=== PATIENT | male | born 1965 | race Hispanic/Latino ===

== ENCOUNTER 2017-04-16 17:03 | Observation (INO) | payer OTHER ==
[2017-04-16 17:04] VITALS: BMI 21.9
[2017-04-16 17:24] VITALS: BP 112/58; PULSE 89; RESP 18; TEMP 99; O2SAT 96
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
== END 2017-04-16 18:30 | disposition home or self-care (01) ==
LOC: C.ER 17:03 → C.9OBSV 17:35
PROVIDERS: ADMIT Student in an Organized Health Care Education/Training Program; ATTEND Student in an Organized Health Care Education/Training Program
DX: F10.120 Alcohol abuse with intoxication, uncomplicated (principal); Z87.891 Personal history of nicotine dependence; J44.9 Chronic obstructive pulmonary disease, unspecified; Y90.6 Blood alcohol level of 120-199 mg/100 ml
CPT/HCPCS: 80320; 82948; 99285; G0378

== ENCOUNTER 2017-04-26 15:41 | Emergency (ER) | payer OTHER ==
[2017-04-26 15:42] VITALS: BMI 21.9
[2017-04-26 16:19] VITALS: BP 137/69; PULSE 98; RESP 18; TEMP 98.1; O2SAT 100
[2017-04-26] MEDS ORDERED: Bacitracin 500 Units/gm Oint Foilpak UD TOP STA (16:43)
[2017-04-26] MEDS ORDERED: Bacitracin 500 Units/gm Oint Foilpak UD ONE (16:45)
--- NOTE | 2017-04-26 16:49 | C.PDOC ---
Time Seen by Provider: 04/26/17 16:35 Chief Complaint (Nursing): Suture/Staple Removal Past Medical History Vital Signs: Last Vital Signs Temp 98.1 F 04/26/17 16:17 Pulse 98 H 04/26/17 16:17 Resp 18 04/26/17 16:17 BP 137/69 04/26/17 16:17 Pulse Ox 100 04/26/17 16:17 - Medical History PMH: COPD, Hiatal Hernia, Seizures Denies: HIV, HTN, Chronic Kidney Disease, Sexually Transmitted Disease - [facility] Procedures EXCISION OF SMALL INTESTINE, ENDO, DIAGN (08/09/16) TETANUS TOXOID ADMINIST (11/20/14) Family History: States: Unknown Family Hx - Social History Hx Tobacco Use: Yes Hx Alcohol Use: Yes Hx Substance Use: No - Immunization History Hx Tetanus Toxoid Vaccination: No Hx Influenza Vaccination: No Hx Pneumococcal Vaccination: No ED Course And Treatment O2 Sat by Pulse Oximetry: 100 Disposition Counseled Patient/Family Regarding: Need For Followup - Disposition Disposition: HOME/ ROUTINE Disposition Time: 16:48 Condition: GUARDED Additional Instructions: Follow up with the surgeon who is caring for you. Instructions: Acute Wound Care (ED) Forms: General Discharge Instructions - POA Present On Arrival: None - Clinical Impression Clinical Impression: Pain at surgical site
== END 2017-04-26 17:12 | disposition home or self-care (01) ==
LOC: C.ER 15:41
DX: G89.18 Other acute postprocedural pain (principal)

== ENCOUNTER 2017-08-08 20:24 | Emergency (ER) | payer OTHER ==
[2017-08-08 20:24] VITALS: BMI 21.9
[2017-08-08 20:44] VITALS: RESP 18; O2SAT 100
[2017-08-08 22:19] VITALS: BP 130/69; PULSE 80; TEMP 98
--- NOTE | 2017-08-08 22:55 | C.PDOC ---
History Of Present Illness 51 y/o male c/o mechanically falling sometime today. Patient does not know when he fell. Patient also c/o headache and chronic left shoulder pain. Denies LOC or any other complaints. Patient admits to drinking today. Patient went to [facility] and walked out. No weakness or numbness. Time Seen by Provider: 08/08/17 22:00 Chief Complaint (Nursing): Upper Extremity Problem/Injury History Per: Patient History/Exam Limitations: no limitations Onset/Duration Of Symptoms: Hrs Current Symptoms Are (Timing): Still Present Quality: "Pain" Severity: Mild Recent travel outside of the [place]: No Additional History Per: Patient Past Medical History Reviewed: Historical Data, Nursing Documentation, Vital Signs Vital Signs: Last Vital Signs Temp 98.0 F 08/08/17 22:00 Pulse 80 08/08/17 22:00 Resp 18 08/08/17 22:00 BP 130/69 08/08/17 22:00 Pulse Ox 100 08/08/17 22:59 - Medical History PMH: COPD, Hiatal Hernia, Seizures Denies: HIV, HTN, Chronic Kidney Disease, Sexually Transmitted Disease - [facility] Procedures EXCISION OF SMALL INTESTINE, ENDO, DIAGN (08/09/16) TETANUS TOXOID ADMINIST (11/20/14) Family History: States: Unknown Family Hx - Social History Hx Tobacco Use: Yes Hx Alcohol Use: Yes Hx Substance Use: No - Immunization History Hx Tetanus Toxoid Vaccination: No Hx Influenza Vaccination: No Hx Pneumococcal Vaccination: No Review Of Systems Except As Marked, All Systems Reviewed And Found Negative. Constitutional: Positive for: Other (ETOH intoxicated ) Musculoskeletal: Positive for: Shoulder Pain (Left) Neurological: Positive for: Headache. Negative for: Weakness, Numbness, Other ( LOC) Physical Exam - Physical Exam Appears: Non-toxic, No Acute Distress, Other ((+) AOB) Skin: Warm, Dry Head: Atraumatic, Normacephalic Eye(s): bilateral: Normal Inspection, PERRL, EOMI Ear(s): Bilateral: Normal Oral Mucosa: Moist Throat: Normal, No Erythema Neck: Supple Chest: Symmetrical Cardiovascular: Rhythm Regular, No Murmur Respiratory: Normal Breath Sounds, No Rales, No Rhonchi, No Wheezing Gastrointestinal/Abdominal: Soft, No Tenderness Extremity: Capillary Refill (<2secs), No Deformity, Other (Surgical scar left upper arm) Neurological/Psych: Oriented x3, Normal Motor, Normal Sensation Gait: Steady ED Course And Treatment O2 Sat by Pulse Oximetry: 100 (RA) Pulse Ox Interpretation: Normal Medical Decision Making Medical Decision Making: Plans: * Motrin * XRAY left shoulder XRAY done with orthopedic hardware. No acute fractures or dislocations from fall. Patient refused CT Disposition - Disposition Referrals: [facility] [Outside] [facility] [Outside] Disposition: HOME/ ROUTINE Disposition Time: 20:30 Condition: GOOD Additional Instructions: Thank you for letting us take care of you today. The emergency medical care you received today was directed at your acute symptoms. If you were prescribed any medication, please fill it and take as directed. It may take several days for your symptoms to resolve. Return to the Emergency Department if your symptoms worsen, do not improve, or if you have any other problems. Please contact your doctor or call one of the physicians/clinics you have been referred to that are listed on the Patient Visit Information form that is included in your discharge packet. Bring any paperwork you were given at discharge with you along with any medications you are taking to your follow up visit. Our treatment cannot replace ongoing medical care by a primary care provider (PCP) outside of the emergency department. Thank you for allowing the [facility] team to be part of your care today. Follow up in the clinic this week for outpatient care. Instructions: Shoulder Pain (ED) - Clinical Impression Clinical Impression: Shoulder pain, Alcohol dependence - Scribe Statement The provider has reviewed the documentation as recorded by the Scribdarvin saeed All medical record entries made by the Simaibdarvin were at my direction and personally dictated by me. I have reviewed the chart and agree that the record accurately reflects my personal performance of the history, physical exam, medical decision making, and the department course for this patient. I have also personally directed, reviewed, and agree with the discharge instructions and disposition.
--- NOTE | 2017-08-09 09:15 | RAD ---
Left shoulder three views History: Fracture. Comparison: None available. Findings: Side plate with screw fixation through a fracture deformity of the left proximal humerus. One of the superior screws extends through the superior articular surface of the humeral head approximating the undersurface of the left acromion. Cortical irregularity seen at the fracture site with persistent mild distraction medially. Callus formation with heterotopic bone seen along the medial cortex of the proximal humerus. Humeral head appears located. Acromioclavicular joint space appears preserved. Impression: Side plate with screw fixation through a fracture deformity of the left proximal humerus. One of the superior screws extends through the superior articular surface of the humeral head approximating the undersurface of the left acromion. Cortical irregularity seen at the fracture site with persistent mild distraction medially. Callus formation with heterotopic bone seen along the medial cortex of the proximal humerus. If pain persists, consider further evaluation with CT scan to better evaluate for possible acute injury.
== END 2017-08-08 22:15 | disposition home or self-care (01) ==
LOC: C.ER 20:24
DX: M25.512 Pain in left shoulder (principal); F10.20 Alcohol dependence, uncomplicated; Y90.9 Presence of alcohol in blood, level not specified

== ENCOUNTER 2018-05-25 15:40 | Emergency (ER) | payer OTHER ==
[2018-05-25 15:40] VITALS: BMI 21.9
[2018-05-25 15:47] VITALS: TEMP 98.4
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
[2018-05-25 17:06] VITALS: BP 135/73; PULSE 78; RESP 18; O2SAT 100
== END 2018-05-25 17:06 | disposition left against medical advice (07) ==
LOC: C.ER 15:40
DX: M25.552 Pain in left hip (principal)

== ENCOUNTER 2018-06-10 23:16 | Inpatient (IN) | payer OTHER ==
[2018-06-10 23:16] VITALS: BMI 21.9
[2018-06-10] MEDS ORDERED: Sodium Chloride 0.9% 1,000 ML IV STA (23:27)
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
[2018-06-10 23:42] LABS: BASO # 0.1 K/uL (0.0-0.2); BASO % 0.3 % (0.0-2.0); EOS # 0.1 K/uL (0.0-0.7); EOS % 0.5 % (0.0-4.0); HEMOGLOBIN 7.7 g/dL (12.0-18.0); LYMPH % 18.5 % (20.0-40.0); MEAN CORPUSCULAR HEMOGLOBIN 32.5 pg (27.0-31.0); MEAN CORPUSCULAR HGB CONC 33.8 g/dL (33.0-37.0); MEAN PLATELET VOLUME 8.3 fL (7.2-11.7); MONO # 1.8 K/uL (0.0-0.8); MONO % 10.9 % (0.0-10.0); NEUT # 11.5 K/uL (1.8-7.0); NEUT % 69.8 % (50.0-75.0); NRBC % 0.1 % (0.0-2.0); RBC 2.36 Mil/uL (4.40-5.90); WHITE BLOOD COUNT 16.5 K/uL (4.8-10.8)
[2018-06-10 23:43] LABS: MEAN CELL VOLUME 96.1 fL (80.0-94.0)
[2018-06-10 23:48] LABS: INR 1.4; PROTHROMBIN TIME 15.5 SECONDS (9.7-12.2)
[2018-06-11] LABS: ARTERIAL BLOOD GAS HCO3 15.6 mmol/L (21-28); ARTERIAL BLOOD GAS O2 SAT 99.7 % (95-98); ARTERIAL BLOOD GAS PCO2 28 mm/Hg (35-45); ARTERIAL BLOOD GAS PH 7.28 (7.35-7.45); ARTERIAL BLOOD GAS PO2 458 mm/Hg (80-100); ARTERIAL BLOOD GAS TCO2 14.1 mmol/L (22-28)
[2018-06-11] MEDS ORDERED: EPINEPHrine 1 mg/ml (1:1000) Inj IV ONE (00:09)
[2018-06-11 00:10] LABS: TROPONIN I 0.038 ng/mL (0.00-0.120)
[2018-06-11 00:18] LABS: ALBUMIN 2.4 g/dL (3.5-5.0); ALT/SGPT 31 U/L (21-72); AST/SGOT 45 U/L (17-59); BLOOD UREA NITROGEN 9 mg/dL (9-20); CALCIUM 7.7 mg/dl (8.6-10.4); GFR NON-AFRICAN AMERICAN > 60
[2018-06-11] MEDS ORDERED: Sodium Chloride 3% 500 ML IV ONE ×2 (00:23→00:52)
--- NOTE | 2018-06-11 00:34 | CP.PCM.HP ---
<Tayo Shankar - Last Filed: 06/11/18 08:21> History of Present Illness - History of Present Illness History of Present Illness: Resident History & Physical for Hospitalist Service Patient is a 52 year old male with past medical history seizures, COPD, hiatal hernia, alcohol abuse presenting with chief complaint of cardiac arrest and respiratory failure. History was obtained from patient's sister and prior records as patient was sedated and intubated upon arrival. Patient was complaining of shortness of breath and was found to have low blood pressure around 9PM. However he refused to go to the hospital for evaluation. He was then found to have seizures after which the ambulance was called. ACLS protocol was initiated, patient received 1 amp epi with ROSC. Patient was intubated and arrived at ED. Patient has long history of alcohol abuse and seizures likely secondary to alcohol withdrawal. Patient is reportedly non compliant with his seizure medications. Past medical history: seizures, COPD, hiatal hernia, alcohol abuse Past surgical: excision of small intestine Social: two 24 oz. beers daily for 30 years, 10 cigarettes a day for 30 years, no recreational drug use Allergies: NKDA PMD: Dr. Rodríguez Present on Admission - Present on Admission Any Indicators Present on Admission: Yes Urinary Catheter: Yes Review of Systems - Review of Systems Systems not reviewed;Unavailable: Intubated Past Patient History - Infectious Disease Hx of Infectious Diseases: None - Past Medical History & Family History Past Medical History?: Yes - Past Social History Smoking Status: Light Smoker < 10 Cigarettes Daily - CARDIAC Hx Hypertension: No - PULMONARY Hx Chronic Obstructive Pulmonary Disease (COPD): Yes - NEUROLOGICAL Hx Seizures: Yes - HEENT Hx HEENT Problems: Yes Other/Comment: hearing loss - RENAL Hx Chronic Kidney Disease: No - ENDOCRINE/METABOLIC Hx Endocrine Disorders: No - HEMATOLOGICAL/ONCOLOGICAL Hx Human Immunodeficiency Virus (HIV): No - INTEGUMENTARY Hx Dermatological Problems: No - MUSCULOSKELETAL/RHEUMATOLOGICAL Hx Back Pain: Yes Hx Falls: Yes Other/Comment: scoliosis - GASTROINTESTINAL HX Swallowing Problems: Yes Hx Ulcer: Yes Other/Comment: removal of portion of intestines - GENITOURINARY/GYNECOLOGICAL Hx Sexually Transmitted Disorders: No - PSYCHIATRIC Hx Substance Use: No - SURGICAL HISTORY Hx Surgeries: Yes Hx Herniorrhaphy: Yes Other/Comment: Endoscopy 08/11/16. - ANESTHESIA Hx Anesthesia: Yes Hx Anesthesia Reactions: No Meds Allergies/Adverse Reactions: Allergies Allergy/AdvReac Type Severity Reaction Status Date / Time No Known Allergies Allergy Verified 06/10/18 23:18 Physical Exam - Head Exam Head Exam: ATRAUMATIC, NORMOCEPHALIC - Eye Exam Pupil Exam: Fixed - ENT Exam Additional comments: Intubated - Respiratory Exam Respiratory Exam: Clear to Auscultation Bilateral, NORMAL BREATHING PATTERN - Cardiovascular Exam Cardiovascular Exam: REGULAR RHYTHM, +S1, +S2 - GI/Abdominal Exam GI & Abdominal Exam: Hypoactive Bowel Sounds, Soft. absent: Distended, Firm, Mass - Extremities Exam Extremities exam: Positive for: normal inspection - Neurological Exam Additional comments: Unable to be assessed as patient is under sedation - Skin Skin Exam: Dry, Intact Results - Vital Signs Recent Vital Signs: Last Vital Signs Temp Pulse 148 H 06/10/18 23:18 Resp BP Pulse Ox 100 06/11/18 00:31 - Labs Result Diagrams: 06/11/18 03:20 06/11/18 03:20 Labs: Laboratory Results - last 24 hr 06/10/18 06/10/18 06/10/18 23:37 23:37 23:37 WBC 16.5 H D RBC 2.36 L Hgb 7.7 L Hct 22.7 L MCV 96.1 H D MCH 32.5 H MCHC 33.8 RDW 15.0 H Plt Count 180 D MPV 8.3 Neut % (Auto) 69.8 Lymph % (Auto) 18.5 L [place] % (Auto) 10.9 H Eos % (Auto) 0.5 Baso % (Auto) 0.3 Neut # (Auto) 11.5 H Lymph # (Auto) 3.0 [place] # (Auto) 1.8 H Eos # (Auto) 0.1 Baso # (Auto) 0.1 PT 15.5 H INR 1.4 APTT 40 H Puncture Site pCO2 pO2 HCO3 ABG pH ABG Total CO2 ABG O2 Saturation ABG Base Excess Bob Test ABG Potassium A-a O2 Difference Respiratory Index Glucose Lactate Vent Mode Mechanical Rate FiO2 Tidal Volume PEEP Crit Value Called To Crit Value Called By Crit Value Read Back Blood Gas Notified Time Sodium 109 L* Potassium 3.3 L Chloride 71 L D Carbon Dioxide 13 L Anion Gap 28 H BUN 9 Creatinine 1.0 Est GFR ( Amer) > 60 Est GFR (Non-Af Amer) > 60 Random Glucose 176 H Calcium 7.7 L Total Bilirubin 0.7 AST 45 ALT 31 Alkaline Phosphatase 75 Troponin I NT-Pro-B Natriuret Pep Total Protein 4.8 L Albumin 2.4 L D Globulin 2.4 Albumin/Globulin Ratio 1.0 Arterial Blood Potassium Alcohol, Quantitative 06/10/18 06/10/18 06/11/18 23:37 23:55 00:07 WBC RBC Hgb Hct MCV MCH MCHC RDW Plt Count MPV Neut % (Auto) Lymph % (Auto) [place] % (Auto) Eos % (Auto) Baso % (Auto) Neut # (Auto) Lymph # (Auto) [place] # (Auto) Eos # (Auto) Baso # (Auto) PT INR APTT Puncture Site Rfem pCO2 28 L pO2 458 H HCO3 15.6 L ABG pH 7.28 L ABG Total CO2 14.1 L ABG O2 Saturation 99.7 H ABG Base Excess -12.0 L Bob Test Na ABG Potassium 3.2 L A-a O2 Difference 220.0 Respiratory Index 0.5 Glucose 164 H Lactate 7.7 H* Vent Mode Prvc Mechanical Rate 20 FiO2 100.0 Tidal Volume 500 PEEP 5 Crit Value Called To Dr. meehan Crit Value Called By Alejandra dietician Crit Value Read Back Y Blood Gas Notified Time 0 Sodium 106.0 L* Potassium Chloride 77.0 L Carbon Dioxide Anion Gap BUN Creatinine Est GFR ( Amer) Est GFR (Non-Af Amer) Random Glucose Calcium Total Bilirubin AST ALT Alkaline Phosphatase Troponin I 0.0380 NT-Pro-B Natriuret Pep 3480 H Total Protein Albumin Globulin Albumin/Globulin Ratio Arterial Blood Potassium 3.2 L Alcohol, Quantitative < 10 Assessment & Plan - Assessment and Plan (Free Text) Plan: Cardiac arrest - Abd/pelvis CT shows distended bowel suggesting an ileus - s/o central line placement - Levophed drip Seizures - Likely secondary to alcohol withdrawal - Head CT shows no acute intracranial abnormality. Chronic microvascular ischemic changes. Sinus mucosal disease. - Keppra 500 mg IVPB Q12H Hyponatremia - Sodium 109 - Correct sodium with a goal of 8-10 meq/day - Followup urine sodium, urine osmolality - Continue to monitor and replete Hypokalemia - Potassium 3.3 - Continue to monitor and replete Anemia - Hgb 7.7 - 1 unit PRBCs given - Continue to monitor and transfuse as needed - FOBT positive - GI consulted. Appreciate recs. PPX - Protonix drip - SCDs Tayo Shankar PGY-1 - Date & Time Date: 06/11/18 Time: 13:30 <Supa Jimenez - Last Filed: 06/12/18 06:33> Results - Vital Signs Recent Vital Signs: Last Vital Signs Temp 98.7 F 06/12/18 04:00 Pulse 99 H 06/12/18 05:00 Resp 23 06/12/18 05:00 BP 104/63 06/12/18 05:03 Pulse Ox 99 06/12/18 05:00 - Labs Result Diagrams: 06/11/18 12:41 06/11/18 17:20 Labs: Laboratory Results - last 24 hr 06/11/18 06/11/18 06/11/18 00:45 08:27 08:27 WBC RBC Hgb Hct MCV MCH MCHC RDW Plt Count MPV Neut % (Auto) Lymph % (Auto) [place] % (Auto) Eos % (Auto) Baso % (Auto) Neut # (Auto) Lymph # (Auto) [place] # (Auto) Eos # (Auto) Baso # (Auto) Neutrophils % (Manual) Band Neutrophils % Lymphocytes % (Manual) Monocytes % (Manual) Nucleated RBC % Platelet Estimate Polychromasia Hypochromasia (manual) Poikilocytosis (manual Basophilic Stippling Anisocytosis (manual) Ovalocytes Tra Cells PT INR Puncture Site pCO2 pO2 HCO3 ABG pH ABG Total CO2 ABG O2 Saturation ABG Base Excess ABG Hemoglobin ABG Carboxyhemoglobin POC ABG HHb (Measured) ABG Methemoglobin Bob Test A-a O2 Difference Respiratory Index Hgb O2 Saturation Vent Mode Mechanical Rate FiO2 Tidal Volume PEEP Sodium Potassium Chloride Carbon Dioxide Anion Gap BUN Creatinine Est GFR ( Amer) Est GFR (Non-Af Amer) Random Glucose Calcium Phosphorus Magnesium TSH 3rd Generation 2.92 Cortisol AM Sample 52.9 H Urine Osmolality Ur Random Creatinine Ur Random Sodium Blood Type A POSITIVE Antibody Screen Negative 06/11/18 06/11/18 06/11/18 08:27 12:41 12:41 WBC 10.9 H RBC 3.26 L Hgb 10.4 L D Hct 29.4 L MCV 90.3 D MCH 31.9 H MCHC 35.3 RDW 16.6 H Plt Count 110 L D MPV 8.0 Neut % (Auto) 86.1 H Lymph % (Auto) 4.8 L [place] % (Auto) 8.8 Eos % (Auto) 0.0 Baso % (Auto) 0.3 Neut # (Auto) 9.4 H Lymph # (Auto) 0.5 L [place] # (Auto) 1.0 H Eos # (Auto) 0.0 Baso # (Auto) 0.0 Neutrophils % (Manual) 79 H Band Neutrophils % 3 H Lymphocytes % (Manual) 8 L Monocytes % (Manual) 10 Nucleated RBC % 1 H Platelet Estimate Slightly decreased L Polychromasia Slight Hypochromasia (manual) Slight Poikilocytosis (manual Slight Basophilic Stippling Slight Anisocytosis (manual) Slight Ovalocytes Slight [place] Cells Slight PT INR Puncture Site pCO2 pO2 HCO3 ABG pH ABG Total CO2 ABG O2 Saturation ABG Base Excess ABG Hemoglobin ABG Carboxyhemoglobin POC ABG HHb (Measured) ABG Methemoglobin Bob Test A-a O2 Difference Respiratory Index Hgb O2 Saturation Vent Mode Mechanical Rate FiO2 Tidal Volume PEEP Sodium 118 L* Potassium 4.0 Chloride 90 L Carbon Dioxide 18 L Anion Gap 14 BUN 18 Creatinine 0.7 L Est GFR ( Amer) > 60 Est GFR (Non-Af Amer) > 60 Random Glucose 107 Calcium 7.4 L Phosphorus 2.2 L Magnesium 1.6 TSH 3rd Generation Cortisol AM Sample Urine Osmolality 199 L Ur Random Creatinine 12.4 Ur Random Sodium 39 Blood Type Antibody Screen 06/11/18 06/11/18 06/11/18 17:20 17:20 20:36 WBC RBC Hgb Hct MCV MCH MCHC RDW Plt Count MPV Neut % (Auto) Lymph % (Auto) [place] % (Auto) Eos % (Auto) Baso % (Auto) Neut # (Auto) Lymph # (Auto) [place] # (Auto) Eos # (Auto) Baso # (Auto) Neutrophils % (Manual) Band Neutrophils % Lymphocytes % (Manual) Monocytes % (Manual) Nucleated RBC % Platelet Estimate Polychromasia Hypochromasia (manual) Poikilocytosis (manual Basophilic Stippling Anisocytosis (manual) Ovalocytes [place] Cells PT 15.0 H INR 1.4 Puncture Site pCO2 pO2 HCO3 ABG pH ABG Total CO2 ABG O2 Saturation ABG Base Excess ABG Hemoglobin ABG Carboxyhemoglobin POC ABG HHb (Measured) ABG Methemoglobin Bob Test A-a O2 Difference Respiratory Index Hgb O2 Saturation Vent Mode Mechanical Rate FiO2 Tidal Volume PEEP Sodium 119 L* Potassium 3.3 L Chloride 93 L Carbon Dioxide 19 L Anion Gap 11 BUN 22 H Creatinine 0.8 Est GFR ( Amer) > 60 Est GFR (Non-Af Amer) > 60 Random Glucose 97 Calcium 7.1 L Phosphorus Magnesium TSH 3rd Generation Cortisol AM Sample Urine Osmolality 359 Ur Random Creatinine Ur Random Sodium 14 Blood Type Antibody Screen 06/12/18 04:51 WBC RBC Hgb Hct MCV MCH MCHC RDW Plt Count MPV Neut % (Auto) Lymph % (Auto) [place] % (Auto) Eos % (Auto) Baso % (Auto) Neut # (Auto) Lymph # (Auto) [place] # (Auto) Eos # (Auto) Baso # (Auto) Neutrophils % (Manual) Band Neutrophils % Lymphocytes % (Manual) Monocytes % (Manual) Nucleated RBC % Platelet Estimate Polychromasia Hypochromasia (manual) Poikilocytosis (manual Basophilic Stippling Anisocytosis (manual) Ovalocytes Tra Cells PT INR Puncture Site R rad pCO2 24 L pO2 81 HCO3 21.3 ABG pH 7.48 H ABG Total CO2 18.6 L ABG O2 Saturation 97.8 ABG Base Excess -4.6 L ABG Hemoglobin 8.7 L ABG Carboxyhemoglobin 1.3 POC ABG HHb (Measured) 2.1 ABG Methemoglobin 1.2 Bob Test Pos A-a O2 Difference 246.0 Respiratory Index 3.0 Hgb O2 Saturation 95.3 Vent Mode Prvc Mechanical Rate 20 FiO2 50.0 Tidal Volume 450 PEEP 5 Sodium Potassium Chloride Carbon Dioxide Anion Gap BUN Creatinine Est GFR ( Amer) Est GFR (Non-Af Amer) Random Glucose Calcium Phosphorus Magnesium TSH 3rd Generation Cortisol AM Sample Urine Osmolality Ur Random Creatinine Ur Random Sodium Blood Type Antibody Screen Assessment & Plan - Date & Time Date: 06/11/18 (I have seen and examined the patient. I agree with the findings and plan of care as documented by Dr. Shankar. Patient with cardiac arrest, GI bleed, and hyponatremia. On vent. Admit to ICU for further management and close monitoring. ) Time: 06:32 Attending/Attestation - Attestation I have personally seen and examined this patient.: Yes I have fully participated in the care of the patient.: Yes I have reviewed all pertinent clinical information: Yes
[2018-06-11] MEDS ORDERED: Sodium Chloride 3% 500 ML ONE (00:35)
[2018-06-11 00:49] LABS: SQUAMOUS EPITHIAL 3 /hpf (0-5); URINE BACTERIA RARE (<OCC); URINE BILIRUBIN NEGATIVE (NEGATIVE); URINE CLARITY Hazy (Clear); URINE COLOR Yellow (YELLOW); URINE GLUCOSE (UA) 1+ mg/dL (Normal); URINE LEUKOCYTE ESTERASE 1+ Leu/uL (Negative); URINE PROTEIN 2+ mg/dL (NEGATIVE); URINE UROBILINOGEN NORMAL mg/dL (0.2-1.0)
[2018-06-11 00:50] LABS: URINE BLOOD NEGATIVE (NEGATIVE)
[2018-06-11] MEDS ORDERED: Sodium Chloride 0.9% 1,000 ML IV ONE ×3 (01:42→01:51)
[2018-06-11] MEDS ORDERED: Vancomycin 1 gm/NS 200 ml 1 GM/200 ML BAG IVPB STA (01:51)
[2018-06-11] MEDS: Piperacill/Tazo 3.375gm in Dex 3.375 GM/50 ML BAG IVPB SCH ×4 (02:48→19:55)
[2018-06-11] MEDS ORDERED: Pantoprazole 80 MG in Sodium Chloride 0.9% 100 ML IVP SCH (03:15)
[2018-06-11 03:27] LABS: BASO % 0.1 % (0.0-2.0); EOS % 0.1 % (0.0-4.0); HEMOGLOBIN 7.4 g/dL (12.0-18.0); LYMPH # 0.5 K/uL (1.0-4.3); LYMPH % 3.5 % (20.0-40.0); MEAN CELL VOLUME 92.3 fL (80.0-94.0); MEAN CORPUSCULAR HEMOGLOBIN 32.5 pg (27.0-31.0); MEAN CORPUSCULAR HGB CONC 35.3 g/dL (33.0-37.0); MEAN PLATELET VOLUME 7.5 fL (7.2-11.7); MONO # 1.4 K/uL (0.0-0.8); MONO % 10.7 % (0.0-10.0); NEUT # 11.3 K/uL (1.8-7.0); NEUT % 85.6 % (50.0-75.0); PLATELET COUNT 141 K/uL (130-400); RBC 2.28 Mil/uL (4.40-5.90); RED CELL DISTRIBUTION WIDTH 15.3 % (11.5-14.5); WHITE BLOOD COUNT 13.2 K/uL (4.8-10.8)
[2018-06-11 03:57] LABS: ALB/GLOB RATIO 1.1 (1.0-2.1); ALBUMIN 2.5 g/dL (3.5-5.0); ALT/SGPT 56 U/L (21-72); AST/SGOT 72 U/L (17-59); BLOOD UREA NITROGEN 12 mg/dL (9-20); CALCIUM 6.9 mg/dl (8.6-10.4); GFR NON-AFRICAN AMERICAN > 60
[2018-06-11] MEDS: Magnesium Sulfate 1 gm in D5W 1 GM/100 ML BAG IVPB SCH ×2 (04:14→04:55)
[2018-06-11 04:26] LABS: BANDS 2 % (0-2); LYMPHOCYTE 3 % (20-40); MONOCYTE 9 % (0-10); NEUTROPHIL 86 % (50-75); PLATELET ESTIMATE NORMAL (NORMAL); TOTAL CELLS COUNTED 100
[2018-06-11 05:32] LABS: ARTERIAL BLOOD GAS HCO3 20.8 mmol/L (21-28); ARTERIAL BLOOD GAS O2 SAT 100.3 % (95-98); ARTERIAL BLOOD GAS PCO2 26 mm/Hg (35-45); ARTERIAL BLOOD GAS PH 7.43 (7.35-7.45); ARTERIAL BLOOD GAS PO2 231 mm/Hg (80-100); ARTERIAL BLOOD GAS TCO2 18.1 mmol/L (22-28)
--- NOTE | 2018-06-11 06:49 | CT ---
Date of service: 06/11/2018 PROCEDURE: CT HEAD WITHOUT CONTRAST. HISTORY: post cardiac arrest COMPARISON: None available. TECHNIQUE: Axial computed tomography images were obtained through the head/brain without intravenous contrast. Radiation dose: Total exam DLP = 928 mGy-cm. This CT exam was performed using one or more of the following dose reduction techniques: Automated exposure control, adjustment of the mA and/or kV according to patient size, and/or use of iterative reconstruction technique. FINDINGS: HEMORRHAGE: No intracranial hemorrhage. BRAIN: Scattered focal lucencies in the subcortical and periventricular white matter suggestive for chronic microvascular ischemic change. VENTRICLES: Unremarkable. No hydrocephalus. CALVARIUM: Mild bowing deformity of the right zygomatic arch. Clinical correlation. PARANASAL SINUSES: Fluid in the sphenoid sinus. MASTOID AIR CELLS: Unremarkable as visualized. No inflammatory changes. OTHER FINDINGS: Fluid in the nasopharynx. IMPRESSION: No acute intracranial abnormality. Chronic microvascular ischemic changes. Sinus mucosal disease as above. If symptoms persists, consider correlation with MRI. These findings were preliminarily reported at 3:25 a.m. on 06/11/[address] Kamran Causey from [facility].
--- NOTE | 2018-06-11 07:20 | CP.PCM.CON ---
History of Present Illness - History of Present Illness History of Present Illness: 52 M with h/o alcohol abuse, seizure disorder, h/o peptic ulcer disease s/p partial gastrectomy, h/o left arm and left hip fracture s/p plate and prema respectively patient was earlier in the day feeling sick EMS was called but patient refused to come. Later in the night patient had seizure and collapsed. EMS reached home around 10:30 pm last night, found patient in PEA, intubated in the field. In ER patietn was again PEA coded twice first 6 mins then about 2 min. The he was stated on levophed and maintained ROSC. Labs showed sodium 109, hemoglobin 7.7gm. A central line done in ER showed very collapsable IJ and SVC, suggesting hypovolemia. Also patient was given Rocruronium 160mg and ketamine at time of intubation in the field. Patient at time of exam had not corneal, gag , response and it was thought to be from above meds + severe electrolyte imbalance, vs postictal. Patient had REES CT including head/chest/abd/pelvis, with no bleeding in the brain, some patchy ground glass appearence in chest, fluid in stomach In ICU when NG done showed about 350 ml of bloody fluid, and stool was liquid and dark + for guiac. Lavage also gave small amount or fresh blood, hence decision was made to cancel code free, prbc ordered with ppi drip. PMH as above Allergies NKDA Family history not contributory Social Alcohol abuse, lived with mom, sister denied illicit drugs Meds seizure meds but not consistiently Review of Systems - Review of Systems All systems: reviewed and no additional remarkable complaints except (HPI) Past Patient History - Infectious Disease Hx of Infectious Diseases: None - Past Medical History & Family History Past Medical History?: Yes - Past Social History Smoking Status: Never Smoked Alcohol: > 2 Drinks/Day Drugs: Denies Home Situation {Lives}: With Family Domestic Violence: Negative - CARDIAC Hx Hypertension: No - PULMONARY Hx Chronic Obstructive Pulmonary Disease (COPD): Yes - NEUROLOGICAL Hx Seizures: Yes - HEENT Hx HEENT Problems: Yes Other/Comment: hearing loss - RENAL Hx Chronic Kidney Disease: No - ENDOCRINE/METABOLIC Hx Endocrine Disorders: No - HEMATOLOGICAL/ONCOLOGICAL Hx Human Immunodeficiency Virus (HIV): No - INTEGUMENTARY Hx Dermatological Problems: No - MUSCULOSKELETAL/RHEUMATOLOGICAL Hx Back Pain: Yes Hx Falls: Yes Other/Comment: scoliosis - GASTROINTESTINAL HX Swallowing Problems: Yes Hx Ulcer: Yes Other/Comment: removal of portion of intestines - GENITOURINARY/GYNECOLOGICAL Hx Sexually Transmitted Disorders: No - PSYCHIATRIC Hx Substance Use: No - SURGICAL HISTORY Hx Surgeries: Yes Hx Herniorrhaphy: Yes Other/Comment: Endoscopy 08/11/16. - ANESTHESIA Hx Anesthesia: Yes Hx Anesthesia Reactions: No Hx Malignant Hyperthermia: No Has any member of the family had a problem w/ anesthesia?: No Meds Allergies/Adverse Reactions: Allergies Allergy/AdvReac Type Severity Reaction Status Date / Time No Known Allergies Allergy Verified 06/10/18 23:18 - Medications Medications: Current Medications Norepinephrine Bitartrate 4 mg (/ Sodium Chloride) 254 mls @ 15.24 mls/hr IV .[id number] PRN; Protocol; 4 MCG/MIN PRN Reason: TITRATE PER MD ORDER Last Titration: 06/11/18 06:29 Dose: 4 mcg/min, 15.24 mls/hr Piperacillin Sod/Tazobactam Sod (Zosyn 3.375 Gm Iv Premix) 3.375 gm in 50 mls @ 100 mls/hr IVPB Q6H MAYANK PRN Reason: Protocol Last Admin: 06/11/18 02:48 Dose: 100 mls/hr Pantoprazole Sodium 80 mg/ (Sodium Chloride) 100 mls @ 10 mls/hr IVP .Q10H MAYANK PRN Reason: 8 MG/HR Last Admin: 06/11/18 03:25 Dose: 10 mls/hr Potassium Chloride (Potassium Chloride 20 Meq/100 Ml) 20 meq in 100 mls @ 100 mls/hr IVPB Q1H MAYANK Stop: 06/11/18 07:59 Last Admin: 06/11/18 06:23 Dose: 100 mls/hr Physical Exam - Additional Findings Additional findings: * HEENT no movement corneal or pupillary reflex * Neck supple, left IJ * Chest clear, b/l * CVS regular no gallop or rub * PA soft, scar of prior surg in epigastrium * Ext left arm and left hip scar * 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, 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 * Skin lower turgor Results - Vital Signs Recent Vital Signs: Last Vital Signs Temp 97.6 F 06/11/18 06:00 Pulse 101 H 06/11/18 06:00 Resp 24 06/11/18 06:00 BP 106/71 06/11/18 06:00 Pulse Ox 100 06/11/18 05:53 - Labs Result Diagrams: 06/11/18 03:20 06/11/18 03:20 Labs: Laboratory Results - last 24 hr 06/10/18 06/10/18 06/10/18 23:37 23:37 23:37 WBC 16.5 H D RBC 2.36 L Hgb 7.7 L Hct 22.7 L MCV 96.1 H D MCH 32.5 H MCHC 33.8 RDW 15.0 H Plt Count 180 D MPV 8.3 Neut % (Auto) 69.8 Lymph % (Auto) 18.5 L Cannon % (Auto) 10.9 H Eos % (Auto) 0.5 Baso % (Auto) 0.3 Neut # (Auto) 11.5 H Lymph # (Auto) 3.0 Cannon # (Auto) 1.8 H Eos # (Auto) 0.1 Baso # (Auto) 0.1 Neutrophils % (Manual) Band Neutrophils % Lymphocytes % (Manual) Monocytes % (Manual) Platelet Estimate PT 15.5 H INR 1.4 APTT 40 H Puncture Site pCO2 pO2 HCO3 ABG pH ABG Total CO2 ABG O2 Saturation ABG Base Excess Bob Test ABG Potassium A-a O2 Difference Respiratory Index Glucose Lactate Vent Mode Mechanical Rate FiO2 Tidal Volume PEEP Crit Value Called To Crit Value Called By Crit Value Read Back Blood Gas Notified Time Sodium 109 L* Potassium 3.3 L Chloride 71 L D Carbon Dioxide 13 L Anion Gap 28 H BUN 9 Creatinine 1.0 Est GFR ( Amer) > 60 Est GFR (Non-Af Amer) > 60 Random Glucose 176 H Calcium 7.7 L Phosphorus Magnesium Total Bilirubin 0.7 AST 45 ALT 31 Alkaline Phosphatase 75 Troponin I NT-Pro-B Natriuret Pep Total Protein 4.8 L Albumin 2.4 L D Globulin 2.4 Albumin/Globulin Ratio 1.0 Arterial Blood Potassium Urine Color Urine Clarity Urine pH Ur Specific Romulus Urine Protein Urine Glucose (UA) Urine Ketones Urine Blood Urine Nitrate Urine Bilirubin Urine Urobilinogen Ur Leukocyte Esterase Urine WBC (Auto) Urine RBC (Auto) Ur Squamous Epith Cells Urine Bacteria Hyaline Casts Stool Occult Blood Alcohol, Quantitative Blood Type Antibody Screen 06/10/18 06/10/18 06/11/18 23:37 23:55 00:07 WBC RBC Hgb Hct MCV MCH MCHC RDW Plt Count MPV Neut % (Auto) Lymph % (Auto) Cannon % (Auto) Eos % (Auto) Baso % (Auto) Neut # (Auto) Lymph # (Auto) Cannon # (Auto) Eos # (Auto) Baso # (Auto) Neutrophils % (Manual) Band Neutrophils % Lymphocytes % (Manual) Monocytes % (Manual) Platelet Estimate PT INR APTT Puncture Site Rfem pCO2 28 L pO2 458 H HCO3 15.6 L ABG pH 7.28 L ABG Total CO2 14.1 L ABG O2 Saturation 99.7 H ABG Base Excess -12.0 L Bob Test Na ABG Potassium 3.2 L A-a O2 Difference 220.0 Respiratory Index 0.5 Glucose 164 H Lactate 7.7 H* Vent Mode Prvc Mechanical Rate 20 FiO2 100.0 Tidal Volume 500 PEEP 5 Crit Value Called To Dr. meehan Crit Value Called By Alejandra pattern ruler Crit Value Read Back Y Blood Gas Notified Time 0 Sodium 106.0 L* Potassium Chloride 77.0 L Carbon Dioxide Anion Gap BUN Creatinine Est GFR ( Amer) Est GFR (Non-Af Amer) Random Glucose Calcium Phosphorus Magnesium Total Bilirubin AST ALT Alkaline Phosphatase Troponin I 0.0380 NT-Pro-B Natriuret Pep 3480 H Total Protein Albumin Globulin Albumin/Globulin Ratio Arterial Blood Potassium 3.2 L Urine Color Urine Clarity Urine pH Ur Specific Romulus Urine Protein Urine Glucose (UA) Urine Ketones Urine Blood Urine Nitrate Urine Bilirubin Urine Urobilinogen Ur Leukocyte Esterase Urine WBC (Auto) Urine RBC (Auto) Ur Squamous Epith Cells Urine Bacteria Hyaline Casts Stool Occult Blood Alcohol, Quantitative < 10 Blood Type Antibody Screen 06/11/18 06/11/18 06/11/18 00:39 00:45 03:20 WBC RBC Hgb Hct MCV MCH MCHC RDW Plt Count MPV Neut % (Auto) Lymph % (Auto) Cannon % (Auto) Eos % (Auto) Baso % (Auto) Neut # (Auto) Lymph # (Auto) Cannon # (Auto) Eos # (Auto) Baso # (Auto) Neutrophils % (Manual) Band Neutrophils % Lymphocytes % (Manual) Monocytes % (Manual) Platelet Estimate PT INR APTT Puncture Site pCO2 pO2 HCO3 ABG pH ABG Total CO2 ABG O2 Saturation ABG Base Excess Bob Test ABG Potassium A-a O2 Difference Respiratory Index Glucose Lactate Vent Mode Mechanical Rate FiO2 Tidal Volume PEEP Crit Value Called To Crit Value Called By Crit Value Read Back Blood Gas Notified Time Sodium Potassium Chloride Carbon Dioxide Anion Gap BUN Creatinine Est GFR ( Amer) Est GFR (Non-Af Amer) Random Glucose Calcium Phosphorus Magnesium Total Bilirubin AST ALT Alkaline Phosphatase Troponin I NT-Pro-B Natriuret Pep Total Protein Albumin Globulin Albumin/Globulin Ratio Arterial Blood Potassium Urine Color Yellow Urine Clarity Hazy Urine pH 7.0 Ur Specific Romulus 1.008 Urine Protein 2+ H Urine Glucose (UA) 1+ H Urine Ketones Trace Urine Blood Negative Urine Nitrate Negative Urine Bilirubin Negative Urine Urobilinogen Normal Ur Leukocyte Esterase 1+ H Urine WBC (Auto) 15 H Urine RBC (Auto) 1 Ur Squamous Epith Cells 3 Urine Bacteria Rare Hyaline Casts 6-10 H Stool Occult Blood Positive H Alcohol, Quantitative Blood Type A POSITIVE Antibody Screen Negative 06/11/18 06/11/18 06/11/18 03:20 03:20 05:15 WBC 13.2 H RBC 2.28 L Hgb 7.4 L Hct 21.0 L MCV 92.3 D MCH 32.5 H MCHC 35.3 RDW 15.3 H Plt Count 141 MPV 7.5 Neut % (Auto) 85.6 H Lymph % (Auto) 3.5 L Cannon % (Auto) 10.7 H Eos % (Auto) 0.1 Baso % (Auto) 0.1 Neut # (Auto) 11.3 H Lymph # (Auto) 0.5 L Cannon # (Auto) 1.4 H Eos # (Auto) 0.0 Baso # (Auto) 0.0 Neutrophils % (Manual) 86 H Band Neutrophils % 2 Lymphocytes % (Manual) 3 L Monocytes % (Manual) 9 Platelet Estimate Normal PT INR APTT Puncture Site Rb pCO2 26 L pO2 231 H HCO3 20.8 L ABG pH 7.43 ABG Total CO2 18.1 L ABG O2 Saturation 100.3 H ABG Base Excess -5.4 L Bob Test Na ABG Potassium 3.2 L A-a O2 Difference 93.0 Respiratory Index 0.4 Glucose 152 H Lactate 1.1 Vent Mode Prvc Mechanical Rate 20 FiO2 50.0 Tidal Volume 450 PEEP 5 Crit Value Called To Berhane rn Crit Value Called By Alejandra pattern ruler Crit Value Read Back Y Blood Gas Notified Time 532 Sodium 115 L* 116.0 L* Potassium 2.4 L* D Chloride 84 L 90.0 L Carbon Dioxide 20 L Anion Gap 13 BUN 12 Creatinine 0.7 L Est GFR ( Amer) > 60 Est GFR (Non-Af Amer) > 60 Random Glucose 141 H Calcium 6.9 L Phosphorus 3.7 Magnesium 1.2 L Total Bilirubin 0.6 AST 72 H D ALT 56 Alkaline Phosphatase 83 Troponin I NT-Pro-B Natriuret Pep Total Protein 4.9 L Albumin 2.5 L Globulin 2.3 Albumin/Globulin Ratio 1.1 Arterial Blood Potassium 3.2 L Urine Color Urine Clarity Urine pH Ur Specific Romulus Urine Protein Urine Glucose (UA) Urine Ketones Urine Blood Urine Nitrate Urine Bilirubin Urine Urobilinogen Ur Leukocyte Esterase Urine WBC (Auto) Urine RBC (Auto) Ur Squamous Epith Cells Urine Bacteria Hyaline Casts Stool Occult Blood Alcohol, Quantitative Blood Type Antibody Screen Assessment & Plan - Assessment and Plan (Free Text) Assessment: * Cardiac arrest * No activity in patient likely effect of paralytic rather anoxia, also hyponatremia, post itctal vs seizure * Hypovolemic hyponatremia * GI bleeding likely from peptic ulcer active likely the cause of the above event hence not candidate for therapeutic hypothermia * Hypokalemia * H/o seizure * H/o alcoholism * H/o non compliance * Mild aspiration Plan: * PRBC * Correction of sodium as about 8-10 meq/day * PPI drip * Keppra * Will need GI/Neurology consult * Serial electrolytes * Emperic zosyn and single dose vancomycin * SCD * see orders for detail * Critical care time spent 60 mins.
--- NOTE | 2018-06-11 07:23 | PCM.PROC ---
Procedures Attestation:: I certify that I have explained the specified Operation(s) or Procedure(s), risks, benefits and reasonable alternatives to the Patient and/or other person responsible. The opportunity was given to ask questions and all questions answered - Central Line Placement Left Internal Jugular Aseptic technique was employed throughout the procedure: Hand Hygiene done prior to procedure, Full sterile barriers (mask, hair cover, sterile gown, sterile gloves), Full body sterile drape, Chloraprep Antiseptic: 30 second prep for IJ or SC sites CVP Time Out Performed: Yes Pt. Placed on Pulse Ox Monitor: Yes Central Line Prep: Chlorhexidine-Alcohol Combination Amount of Anesthesia Used (mls): 0 Ultrasound Used for Placement: Yes Central Line Lumen Inserted: triple Central Line Length: 20 cm Post Procedure: Sutured in Place, Good Blood Return, All Ports Aspirated, Flushed, Capped, Sterile Dressing Applied Secured by: Suture Post procedure dressing: Clear vapor permeable, Chlorhexidine disc (Biopatch) Post Procedure X-Ray: Yes Patient Tolerated Procedure: Well (SVC and IJ was collapsed suggesting hypovolemia.)
--- NOTE | 2018-06-11 09:11 | CP.PCM.PN ---
Subjective - Date & Time of Evaluation Date of Evaluation: 06/11/18 Time of Evaluation: 08:45 - Subjective Subjective: Hospitalist Progress Note Patient was seen and examined at 8:45 AM 06/11/18 ICU Bed #15 This is my first time seeing this patient. Patient was admitted for further evaluation of Cardiopulmonary Arrest. He has a history of Seizures likely secondary to Alcohol Abuse and COPD. He was intubated in the field, noted to have Hyponatremia, and found to be Anemic with a Stool Occult Positive. He is currently receiving his 2 unit of PRBC and is being monitored in the ICU. ROS is not possible secondary to being intubated/vent. Upon sternal rub and calling his name patient awakens, however does not shake head "yes" or "no" when asking him ROS questions and does not follow commands. General: Intubated on Vent HEENT: NCA, Pupils are round and reactive to light, NO lymphadenopathy, NO thyromegaly, Left IJ Cardio: heart sounds are very faint however this exam is limited (NS1 and NS2, NO M/R/G) Respiratory: CTA B/L, NO R/R/W however again limited due to lack of patient participation GI: BSx4, Soft, NO HSM, NO guarding/rebound tenderness, ND Ext: Radial pulses are strong and equal, Pedal pulses are weak, NO edema, Capillary Refill is 3 seconds, Bilateral lower legs with multiple round dry eschars, Left Tibia with Intraosseous Access Assessments: 1). Cardiopulmonary Arrest Levophed Drip Cardiology Dr. Iglesias 2). Hyponatremia Secondary to Alcohol Abuse Received 3 NS boluses in ER HOLD off on further IVF until repeat labs Nephrology Dr. Shafer 3). Hypokalemia/Hypomagnesemia Being repleted by ICU 4). Metabolic Acidosis Likely secondary to the Cadriopulmonary Arrest IVF given 5). Seizure He has a history of alcohol withdrawl seizures Keppra 500 mg IV Q12H Neurology Dr. Richie Rubi 6). Anemai likely secondary to GI Bleed Receiving 2nd unit of PRBC at time of my exam Protonix 8 mg/hr IV Stool Occult Positive Secondary to Esophageal Varices vs. PUD? GI Dr. Ho for possible Endoscopy as long as patient is stable 7). Hypocalcemia Ca corrects to 8.3 Monitor 8). Elevated ProBNP Secondary to the Cardiopulmonary Arrest Prem Noland D.O. Objective - Vital Signs/Intake and Output Vital Signs (last 24 hours): Temp Pulse Resp BP Pulse Ox 97.6 F 97 H 19 116/72 100 06/11/18 08:41 06/11/18 09:00 06/11/18 09:00 06/11/18 08:58 06/11/18 09:00 Intake and Output: 06/11/18 06/11/18 06:59 18:59 Intake Total 1116.00 741.5 Output Total 3085 200 Balance -1969.00 541.5 - Medications Medications: Current Medications Norepinephrine Bitartrate 4 mg (/ Sodium Chloride) 254 mls @ 15.24 mls/hr IV .[id number] PRN; Protocol; 4 MCG/MIN PRN Reason: TITRATE PER MD ORDER Last Titration: 06/11/18 07:05 Dose: 6 mcg/min, 22.86 mls/hr Piperacillin Sod/Tazobactam Sod (Zosyn 3.375 Gm Iv Premix) 3.375 gm in 50 mls @ 100 mls/hr IVPB Q6H MAYANK PRN Reason: Protocol Last Admin: 06/11/18 02:48 Dose: 100 mls/hr Pantoprazole Sodium 80 mg/ (Sodium Chloride) 100 mls @ 10 mls/hr IVPB .Q10H MAYANK PRN Reason: 8 MG/HR Levetiracetam 500 mg/ Dextrose 105 mls @ 420 mls/hr IVPB Q12H MAYANK - Labs Labs: 06/11/18 03:20 06/11/18 03:20 PT 15.5 SECONDS (9.7-12.2) H 06/10/18 23:37 INR 1.4 06/10/18 23:37 APTT 40 SECONDS (21-34) H 06/10/18 23:37
[2018-06-11 09:13] LABS: CREATININE, RANDOM URINE 12.4 mg/dL
[2018-06-11] MEDS ORDERED: Octreotide 1,250 MCG in Dextrose 5% In Water 250 ML SC SCH (11:30)
[2018-06-11] MEDS ORDERED: cefTRIAXone IV 1 gm in Dextros 50 ML IVPB SCH (11:30)
--- NOTE | 2018-06-11 11:45 | CP.PCM.CON ---
<Meenakshi Abdalla - Last Filed: 06/11/18 16:51> History of Present Illness - History of Present Illness History of Present Illness: GI Fellow PGY5 Consult Note This is a 52yM with a pmhx of alcohol abuse, seizure disorder with medication noncompliance, PUD with GI bleed and Bilroth II 5yrs ago at [facility], COPD. Pt presenting to the ER s/p PEA cardiopulmonary arrest. History was obtained from patient's sister and prior records as patient was intubated on evaluation. Per family, patient was complaining of shortness of breath and was found to have low blood pressure around 9PM. However he refused to go to the hospital for evaluation. He was witnessed to have a seizures by his mother after which the ambulance was called. He was found to be in PEA arrest and ACLS protocol was initiated, patient received 1 amp epi with ROSC. Patient was intubated and arrived at ED. In the ER, he went into asystole and ACLS protocol was initiated with epi and ROSC. Pt is noted to have severe hyponatremia, hyopkalemia, and anemia. GI was consulted for GI bleeding and he is currently receiving 2 unit of PRBC and is being monitored in the ICU. ROS: A 12pt ROS was unable to be obtained secondary to being intubated/vent PmHx: As stated in HPI PsHx: Unable to be obtained secondary to being intubated/vent FHx: Unable to be obtained secondary to being intubated/vent SHx: Per pt's sister active and chronic alcohol drinker, drinks at least 2x24oz cans of beer daily for 30yrs EGD 07/[address] Magaña for melena-gastric erosions, no active bleeding, Bilroth II Past Patient History - Infectious Disease Hx of Infectious Diseases: None - Past Medical History & Family History Past Medical History?: Yes - Past Social History Smoking Status: Light Smoker < 10 Cigarettes Daily - CARDIAC Hx Hypertension: No - PULMONARY Hx Chronic Obstructive Pulmonary Disease (COPD): Yes - NEUROLOGICAL Hx Seizures: Yes - HEENT Hx HEENT Problems: Yes Other/Comment: hearing loss - RENAL Hx Chronic Kidney Disease: No - ENDOCRINE/METABOLIC Hx Endocrine Disorders: No - HEMATOLOGICAL/ONCOLOGICAL Hx Human Immunodeficiency Virus (HIV): No - INTEGUMENTARY Hx Dermatological Problems: No - MUSCULOSKELETAL/RHEUMATOLOGICAL Hx Back Pain: Yes Hx Falls: Yes Other/Comment: scoliosis - GASTROINTESTINAL HX Swallowing Problems: Yes Hx Ulcer: Yes Other/Comment: removal of portion of intestines - GENITOURINARY/GYNECOLOGICAL Hx Sexually Transmitted Disorders: No - PSYCHIATRIC Hx Substance Use: No - SURGICAL HISTORY Hx Surgeries: Yes Hx Herniorrhaphy: Yes Other/Comment: Endoscopy 08/11/16. - ANESTHESIA Hx Anesthesia: Yes Hx Anesthesia Reactions: No Meds Allergies/Adverse Reactions: Allergies Allergy/AdvReac Type Severity Reaction Status Date / Time No Known Allergies Allergy Verified 06/10/18 23:18 - Medications Medications: Current Medications Norepinephrine Bitartrate 4 mg (/ Sodium Chloride) 254 mls @ 15.24 mls/hr IV .[id number] PRN; Protocol; 4 MCG/MIN PRN Reason: TITRATE PER MD ORDER Last Admin: 06/11/18 10:45 Dose: 3.93 mcg/min, 15 mls/hr Piperacillin Sod/Tazobactam Sod (Zosyn 3.375 Gm Iv Premix) 3.375 gm in 50 mls @ 100 mls/hr IVPB Q6H MAYANK PRN Reason: Protocol Last Admin: 06/11/18 10:20 Dose: 100 mls/hr Pantoprazole Sodium 80 mg/ (Sodium Chloride) 100 mls @ 10 mls/hr IVPB .Q10H MAYANK PRN Reason: 8 MG/HR Levetiracetam 500 mg/ Dextrose 105 mls @ 420 mls/hr IVPB Q12H MAYANK Last Admin: 06/11/18 10:20 Dose: 420 mls/hr Octreotide Acetate 50 mcg/ (Sodium Chloride) 51 mls @ 102 mls/hr IVPB ONCE ONE Stop: 06/11/18 11:59 Octreotide Acetate 1,250 mcg/ (Dextrose) 252.5 mls @ 10.1 mls/hr SC .Q24H MAYANK; 50 MCG/HR PRN Reason: Protocol Ceftriaxone Sodium (Rocephin Iv 1 Gm Duplex) 50 mls @ 100 mls/hr IVPB DAILY MAYANK PRN Reason: Protocol Physical Exam - Constitutional Appears: Toxic, Combative, Agitated, Cachectic - Head Exam Head Exam: ATRAUMATIC, NORMAL INSPECTION, NORMOCEPHALIC - Eye Exam Eye Exam: EOMI, PERRL - ENT Exam ENT Exam: Mucous Membranes Dry Additional comments: ETT, OGT with blood - Neck Exam Neck exam: Positive for: Full Rom, Normal Inspection - Respiratory Exam Respiratory Exam: Rhonchi, Respiratory Distress - Cardiovascular Exam Cardiovascular Exam: Tachycardia - GI/Abdominal Exam GI & Abdominal Exam: Normal Bowel Sounds, Soft. absent: Distended, Firm, Guarding, Organomegaly, Rigid, Tenderness - Rectal Exam Rectal Exam: Bloody Stool, Hemorrhoids Additional comments: melena/dark blood on rectal exam - Extremities Exam Extremities exam: Positive for: full ROM, normal inspection - Back Exam Back exam: NORMAL INSPECTION - Neurological Exam Neurological exam: Alert - Psychiatric Exam Psychiatric exam: Agitated - Skin Skin Exam: Dry, Intact, Pallor, Warm Results - Vital Signs Recent Vital Signs: Last Vital Signs Temp 97.8 F 06/11/18 08:56 Pulse 95 H 06/11/18 11:00 Resp 24 06/11/18 11:00 BP 116/70 06/11/18 10:58 Pulse Ox 100 06/11/18 11:00 - Labs Result Diagrams: 06/11/18 03:20 06/11/18 03:20 Labs: Laboratory Results - last 24 hr 06/10/18 06/10/18 06/10/18 23:37 23:37 23:37 WBC 16.5 H D RBC 2.36 L Hgb 7.7 L Hct 22.7 L MCV 96.1 H D MCH 32.5 H MCHC 33.8 RDW 15.0 H Plt Count 180 D MPV 8.3 Neut % (Auto) 69.8 Lymph % (Auto) 18.5 L Blair % (Auto) 10.9 H Eos % (Auto) 0.5 Baso % (Auto) 0.3 Neut # (Auto) 11.5 H Lymph # (Auto) 3.0 Blair # (Auto) 1.8 H Eos # (Auto) 0.1 Baso # (Auto) 0.1 Neutrophils % (Manual) Band Neutrophils % Lymphocytes % (Manual) Monocytes % (Manual) Platelet Estimate PT 15.5 H INR 1.4 APTT 40 H Puncture Site pCO2 pO2 HCO3 ABG pH ABG Total CO2 ABG O2 Saturation ABG Base Excess Bob Test ABG Potassium A-a O2 Difference Respiratory Index Glucose Lactate Vent Mode Mechanical Rate FiO2 Tidal Volume PEEP Crit Value Called To Crit Value Called By Crit Value Read Back Blood Gas Notified Time Sodium 109 L* Potassium 3.3 L Chloride 71 L D Carbon Dioxide 13 L Anion Gap 28 H BUN 9 Creatinine 1.0 Est GFR ( Amer) > 60 Est GFR (Non-Af Amer) > 60 Random Glucose 176 H Calcium 7.7 L Phosphorus Magnesium Total Bilirubin 0.7 AST 45 ALT 31 Alkaline Phosphatase 75 Troponin I NT-Pro-B Natriuret Pep Total Protein 4.8 L Albumin 2.4 L D Globulin 2.4 Albumin/Globulin Ratio 1.0 TSH 3rd Generation Cortisol AM Sample Arterial Blood Potassium Urine Color Urine Clarity Urine pH Ur Specific [place] Urine Protein Urine Glucose (UA) Urine Ketones Urine Blood Urine Nitrate Urine Bilirubin Urine Urobilinogen Ur Leukocyte Esterase Urine WBC (Auto) Urine RBC (Auto) Ur Squamous Epith Cells Urine Bacteria Hyaline Casts Urine Osmolality Ur Random Creatinine Ur Random Sodium Stool Occult Blood Alcohol, Quantitative Blood Type Antibody Screen 06/10/18 06/10/18 06/11/18 23:37 23:55 00:07 WBC RBC Hgb Hct MCV MCH MCHC RDW Plt Count MPV Neut % (Auto) Lymph % (Auto) [place] % (Auto) Eos % (Auto) Baso % (Auto) Neut # (Auto) Lymph # (Auto) Blair # (Auto) Eos # (Auto) Baso # (Auto) Neutrophils % (Manual) Band Neutrophils % Lymphocytes % (Manual) Monocytes % (Manual) Platelet Estimate PT INR APTT Puncture Site Rfem pCO2 28 L pO2 458 H HCO3 15.6 L ABG pH 7.28 L ABG Total CO2 14.1 L ABG O2 Saturation 99.7 H ABG Base Excess -12.0 L Bob Test Na ABG Potassium 3.2 L A-a O2 Difference 220.0 Respiratory Index 0.5 Glucose 164 H Lactate 7.7 H* Vent Mode Prvc Mechanical Rate 20 FiO2 100.0 Tidal Volume 500 PEEP 5 Crit Value Called To Dr. meehan Crit Value Called By Alejandra upper leather cutter Crit Value Read Back Y Blood Gas Notified Time 0 Sodium 106.0 L* Potassium Chloride 77.0 L Carbon Dioxide Anion Gap BUN Creatinine Est GFR ( Amer) Est GFR (Non-Af Amer) Random Glucose Calcium Phosphorus Magnesium Total Bilirubin AST ALT Alkaline Phosphatase Troponin I 0.0380 NT-Pro-B Natriuret Pep 3480 H Total Protein Albumin Globulin Albumin/Globulin Ratio TSH 3rd Generation Cortisol AM Sample Arterial Blood Potassium 3.2 L Urine Color Urine Clarity Urine pH Ur Specific [place] Urine Protein Urine Glucose (UA) Urine Ketones Urine Blood Urine Nitrate Urine Bilirubin Urine Urobilinogen Ur Leukocyte Esterase Urine WBC (Auto) Urine RBC (Auto) Ur Squamous Epith Cells Urine Bacteria Hyaline Casts Urine Osmolality Ur Random Creatinine Ur Random Sodium Stool Occult Blood Alcohol, Quantitative < 10 Blood Type Antibody Screen 06/11/18 06/11/18 06/11/18 00:39 00:45 03:20 WBC RBC Hgb Hct MCV MCH MCHC RDW Plt Count MPV Neut % (Auto) Lymph % (Auto) Blair % (Auto) Eos % (Auto) Baso % (Auto) Neut # (Auto) Lymph # (Auto) Blair # (Auto) Eos # (Auto) Baso # (Auto) Neutrophils % (Manual) Band Neutrophils % Lymphocytes % (Manual) Monocytes % (Manual) Platelet Estimate PT INR APTT Puncture Site pCO2 pO2 HCO3 ABG pH ABG Total CO2 ABG O2 Saturation ABG Base Excess Bob Test ABG Potassium A-a O2 Difference Respiratory Index Glucose Lactate Vent Mode Mechanical Rate FiO2 Tidal Volume PEEP Crit Value Called To Crit Value Called By Crit Value Read Back Blood Gas Notified Time Sodium Potassium Chloride Carbon Dioxide Anion Gap BUN Creatinine Est GFR ( Amer) Est GFR (Non-Af Amer) Random Glucose Calcium Phosphorus Magnesium Total Bilirubin AST ALT Alkaline Phosphatase Troponin I NT-Pro-B Natriuret Pep Total Protein Albumin Globulin Albumin/Globulin Ratio TSH 3rd Generation Cortisol AM Sample Arterial Blood Potassium Urine Color Yellow Urine Clarity Hazy Urine pH 7.0 Ur Specific [place] 1.008 Urine Protein 2+ H Urine Glucose (UA) 1+ H Urine Ketones Trace Urine Blood Negative Urine Nitrate Negative Urine Bilirubin Negative Urine Urobilinogen Normal Ur Leukocyte Esterase 1+ H Urine WBC (Auto) 15 H Urine RBC (Auto) 1 Ur Squamous Epith Cells 3 Urine Bacteria Rare Hyaline Casts 6-10 H Urine Osmolality Ur Random Creatinine Ur Random Sodium Stool Occult Blood Positive H Alcohol, Quantitative Blood Type A POSITIVE Antibody Screen Negative 06/11/18 06/11/18 06/11/18 03:20 03:20 05:15 WBC 13.2 H RBC 2.28 L Hgb 7.4 L Hct 21.0 L MCV 92.3 D MCH 32.5 H MCHC 35.3 RDW 15.3 H Plt Count 141 MPV 7.5 Neut % (Auto) 85.6 H Lymph % (Auto) 3.5 L Blair % (Auto) 10.7 H Eos % (Auto) 0.1 Baso % (Auto) 0.1 Neut # (Auto) 11.3 H Lymph # (Auto) 0.5 L Blair # (Auto) 1.4 H Eos # (Auto) 0.0 Baso # (Auto) 0.0 Neutrophils % (Manual) 86 H Band Neutrophils % 2 Lymphocytes % (Manual) 3 L Monocytes % (Manual) 9 Platelet Estimate Normal PT INR APTT Puncture Site Rb pCO2 26 L pO2 231 H HCO3 20.8 L ABG pH 7.43 ABG Total CO2 18.1 L ABG O2 Saturation 100.3 H ABG Base Excess -5.4 L Bob Test Na ABG Potassium 3.2 L A-a O2 Difference 93.0 Respiratory Index 0.4 Glucose 152 H Lactate 1.1 Vent Mode Prvc Mechanical Rate 20 FiO2 50.0 Tidal Volume 450 PEEP 5 Crit Value Called To Berhane rn Crit Value Called By Alejandra upper leather cutter Crit Value Read Back Y Blood Gas Notified Time 532 Sodium 115 L* 116.0 L* Potassium 2.4 L* D Chloride 84 L 90.0 L Carbon Dioxide 20 L Anion Gap 13 BUN 12 Creatinine 0.7 L Est GFR ( Amer) > 60 Est GFR (Non-Af Amer) > 60 Random Glucose 141 H Calcium 6.9 L Phosphorus 3.7 Magnesium 1.2 L Total Bilirubin 0.6 AST 72 H D ALT 56 Alkaline Phosphatase 83 Troponin I NT-Pro-B Natriuret Pep Total Protein 4.9 L Albumin 2.5 L Globulin 2.3 Albumin/Globulin Ratio 1.1 TSH 3rd Generation Cortisol AM Sample Arterial Blood Potassium 3.2 L Urine Color Urine Clarity Urine pH Ur Specific [place] Urine Protein Urine Glucose (UA) Urine Ketones Urine Blood Urine Nitrate Urine Bilirubin Urine Urobilinogen Ur Leukocyte Esterase Urine WBC (Auto) Urine RBC (Auto) Ur Squamous Epith Cells Urine Bacteria Hyaline Casts Urine Osmolality Ur Random Creatinine Ur Random Sodium Stool Occult Blood Alcohol, Quantitative Blood Type Antibody Screen 06/11/18 06/11/18 06/11/18 08:27 08:27 08:27 WBC RBC Hgb Hct MCV MCH MCHC RDW Plt Count MPV Neut % (Auto) Lymph % (Auto) Blair % (Auto) Eos % (Auto) Baso % (Auto) Neut # (Auto) Lymph # (Auto) Blair # (Auto) Eos # (Auto) Baso # (Auto) Neutrophils % (Manual) Band Neutrophils % Lymphocytes % (Manual) Monocytes % (Manual) Platelet Estimate PT INR APTT Puncture Site pCO2 pO2 HCO3 ABG pH ABG Total CO2 ABG O2 Saturation ABG Base Excess Bob Test ABG Potassium A-a O2 Difference Respiratory Index Glucose Lactate Vent Mode Mechanical Rate FiO2 Tidal Volume PEEP Crit Value Called To Crit Value Called By Crit Value Read Back Blood Gas Notified Time Sodium Potassium Chloride Carbon Dioxide Anion Gap BUN Creatinine Est GFR ( Amer) Est GFR (Non-Af Amer) Random Glucose Calcium Phosphorus Magnesium Total Bilirubin AST ALT Alkaline Phosphatase Troponin I NT-Pro-B Natriuret Pep Total Protein Albumin Globulin Albumin/Globulin Ratio TSH 3rd Generation 2.92 Cortisol AM Sample 52.9 H Arterial Blood Potassium Urine Color Urine Clarity Urine pH Ur Specific [place] Urine Protein Urine Glucose (UA) Urine Ketones Urine Blood Urine Nitrate Urine Bilirubin Urine Urobilinogen Ur Leukocyte Esterase Urine WBC (Auto) Urine RBC (Auto) Ur Squamous Epith Cells Urine Bacteria Hyaline Casts Urine Osmolality 199 L Ur Random Creatinine 12.4 Ur Random Sodium 39 Stool Occult Blood Alcohol, Quantitative Blood Type Antibody Screen Assessment & Plan - Assessment and Plan (Free Text) Assessment: This is a 52yM with a pmhx of alcohol abuse, seizure disorder with medication noncompliance, PUD with GI bleed and Bilroth II 5yrs ago at [facility], COPD. Pt presenting to the ER s/p PEA cardiopulmonary arrest. GI was consulted for anemia and GI bleeding. 1) Cardiopulmonary Arrest 2) Hyponatremia 3) Hypokalemia 4) Metabolic Acidosis 5) Seizure 6) Anemia 7) GI bleeding 8) Alcohol abuse 9) VDRF 10) Hx of PUD s/p bilroth Plan: -Continue supportive care -Pt in ICU intubated on Pressor support with IV Levophed -Pt with active GI bleeding on rectal exam and OGT with blood -Pt hemodynamically unstable -Monitor H/H and transfuse 2U PRBCs now -Pt will need aggressive resuscitation with blood products and IVFs -IV PPI drip -Will start IV Octreotide with an alcoholic pt, no evidence of cirrhosis on prior imaging reviewed -IV abx Rocephin for possible cirrhosis and GI bleed -Pt with significant electrolyte abnormalities being corrected by Nephrology and Hospitalist -Discussed case with Dr. Gutierrez and we strongly recommend a Cardiology consult in a pt s/p PEA/Asystole Cardiopulmonary arrest especially in setting of high risk for possible endoscopic evaluation, also discussed with ICU team and It Software Engineer to keep pt intubated -Case discussed also discussed Dr. Ho -Also recommend IR cs and disused with medical device -The plan of care was also discussed with Dr. Prem Noland -Recommend Anesthesiology consult, call placed to Dr. Martel to discuss potential case and she is aware -Case discussed with GI Attending Dr. Rankin, recommend medical optimization with transfusion and monitor H/H closely and low threshold for endoscopic evaluation in a active GI bleed, recommend consult for cardiology and anesthesia. Will continue to monitor pt closely and make further recommendations on plan of care -Please call with any questions or concerns, contact number provided to [facility] to update with pt's clinical status and lab values <Bryon Rankin - Last Filed: 06/11/18 17:52> Meds - Medications Medications: Current Medications Norepinephrine Bitartrate 4 mg (/ Sodium Chloride) 254 mls @ 15.24 mls/hr IV .[id number] PRN; Protocol; 4 MCG/MIN PRN Reason: TITRATE PER MD ORDER Last Titration: 06/11/18 17:31 Dose: 4 mcg/min, 15.24 mls/hr Piperacillin Sod/Tazobactam Sod (Zosyn 3.375 Gm Iv Premix) 3.375 gm in 50 mls @ 100 mls/hr IVPB Q6H MAYANK PRN Reason: Protocol Last Admin: 06/11/18 14:47 Dose: 100 mls/hr Pantoprazole Sodium 80 mg/ (Sodium Chloride) 100 mls @ 10 mls/hr IVPB .Q10H MAYANK PRN Reason: 8 MG/HR Last Admin: 06/11/18 13:53 Dose: 10 mls/hr Levetiracetam 500 mg/ Dextrose 105 mls @ 420 mls/hr IVPB Q12H MAYANK Last Admin: 06/11/18 10:20 Dose: 420 mls/hr Sucralfate (Carafate Oral Susp) 1 gm PO QID [facility] Last Admin: 06/11/18 17:02 Dose: Not Given Results - Vital Signs Recent Vital Signs: Last Vital Signs Temp 98.2 F 06/11/18 16:00 Pulse 97 H 06/11/18 17:01 Resp 26 H 06/11/18 17:01 BP 92/56 L 06/11/18 17:03 Pulse Ox 100 06/11/18 17:01 - Labs Result Diagrams: 06/11/18 12:41 06/11/18 12:41 Labs: Laboratory Results - last 24 hr 06/10/18 06/10/18 06/10/18 23:37 23:37 23:37 WBC 16.5 H D RBC 2.36 L Hgb 7.7 L Hct 22.7 L MCV 96.1 H D MCH 32.5 H MCHC 33.8 RDW 15.0 H Plt Count 180 D MPV 8.3 Neut % (Auto) 69.8 Lymph % (Auto) 18.5 L Blair % (Auto) 10.9 H Eos % (Auto) 0.5 Baso % (Auto) 0.3 Neut # (Auto) 11.5 H Lymph # (Auto) 3.0 Blair # (Auto) 1.8 H Eos # (Auto) 0.1 Baso # (Auto) 0.1 Neutrophils % (Manual) Band Neutrophils % Lymphocytes % (Manual) Monocytes % (Manual) Nucleated RBC % Platelet Estimate Polychromasia Hypochromasia (manual) Poikilocytosis (manual Basophilic Stippling Anisocytosis (manual) Ovalocytes [place] Cells PT 15.5 H INR 1.4 APTT 40 H Puncture Site pCO2 pO2 HCO3 ABG pH ABG Total CO2 ABG O2 Saturation ABG Base Excess Bob Test ABG Potassium A-a O2 Difference Respiratory Index Glucose Lactate Vent Mode Mechanical Rate FiO2 Tidal Volume PEEP Crit Value Called To Crit Value Called By Crit Value Read Back Blood Gas Notified Time Sodium 109 L* Potassium 3.3 L Chloride 71 L D Carbon Dioxide 13 L Anion Gap 28 H BUN 9 Creatinine 1.0 Est GFR ( Amer) > 60 Est GFR (Non-Af Amer) > 60 Random Glucose 176 H Calcium 7.7 L Phosphorus Magnesium Total Bilirubin 0.7 AST 45 ALT 31 Alkaline Phosphatase 75 Troponin I NT-Pro-B Natriuret Pep Total Protein 4.8 L Albumin 2.4 L D Globulin 2.4 Albumin/Globulin Ratio 1.0 TSH 3rd Generation Cortisol AM Sample Arterial Blood Potassium Urine Color Urine Clarity Urine pH Ur Specific [place] Urine Protein Urine Glucose (UA) Urine Ketones Urine Blood Urine Nitrate Urine Bilirubin Urine Urobilinogen Ur Leukocyte Esterase Urine WBC (Auto) Urine RBC (Auto) Ur Squamous Epith Cells Urine Bacteria Hyaline Casts Urine Osmolality Ur Random Creatinine Ur Random Sodium Stool Occult Blood Alcohol, Quantitative Blood Type Antibody Screen 06/10/18 06/10/18 06/11/18 23:37 23:55 00:07 WBC RBC Hgb Hct MCV MCH MCHC RDW Plt Count MPV Neut % (Auto) Lymph % (Auto) Blair % (Auto) Eos % (Auto) Baso % (Auto) Neut # (Auto) Lymph # (Auto) Blair # (Auto) Eos # (Auto) Baso # (Auto) Neutrophils % (Manual) Band Neutrophils % Lymphocytes % (Manual) Monocytes % (Manual) Nucleated RBC % Platelet Estimate Polychromasia Hypochromasia (manual) Poikilocytosis (manual Basophilic Stippling Anisocytosis (manual) Ovalocytes Tra Cells PT INR APTT Puncture Site Rfem pCO2 28 L pO2 458 H HCO3 15.6 L ABG pH 7.28 L ABG Total CO2 14.1 L ABG O2 Saturation 99.7 H ABG Base Excess -12.0 L Bob Test Na ABG Potassium 3.2 L A-a O2 Difference 220.0 Respiratory Index 0.5 Glucose 164 H Lactate 7.7 H* Vent Mode Prvc Mechanical Rate 20 FiO2 100.0 Tidal Volume 500 PEEP 5 Crit Value Called To Dr. meehan Crit Value Called By Alejandra upper leather cutter Crit Value Read Back Y Blood Gas Notified Time 0 Sodium 106.0 L* Potassium Chloride 77.0 L Carbon Dioxide Anion Gap BUN Creatinine Est GFR ( Amer) Est GFR (Non-Af Amer) Random Glucose Calcium Phosphorus Magnesium Total Bilirubin AST ALT Alkaline Phosphatase Troponin I 0.0380 NT-Pro-B Natriuret Pep 3480 H Total Protein Albumin Globulin Albumin/Globulin Ratio TSH 3rd Generation Cortisol AM Sample Arterial Blood Potassium 3.2 L Urine Color Urine Clarity Urine pH Ur Specific [place] Urine Protein Urine Glucose (UA) Urine Ketones Urine Blood Urine Nitrate Urine Bilirubin Urine Urobilinogen Ur Leukocyte Esterase Urine WBC (Auto) Urine RBC (Auto) Ur Squamous Epith Cells Urine Bacteria Hyaline Casts Urine Osmolality Ur Random Creatinine Ur Random Sodium Stool Occult Blood Alcohol, Quantitative < 10 Blood Type Antibody Screen 06/11/18 06/11/18 06/11/18 00:39 00:45 03:20 WBC RBC Hgb Hct MCV MCH MCHC RDW Plt Count MPV Neut % (Auto) Lymph % (Auto) Blair % (Auto) Eos % (Auto) Baso % (Auto) Neut # (Auto) Lymph # (Auto) Blair # (Auto) Eos # (Auto) Baso # (Auto) Neutrophils % (Manual) Band Neutrophils % Lymphocytes % (Manual) Monocytes % (Manual) Nucleated RBC % Platelet Estimate Polychromasia Hypochromasia (manual) Poikilocytosis (manual Basophilic Stippling Anisocytosis (manual) Ovalocytes [place] Cells PT INR APTT Puncture Site pCO2 pO2 HCO3 ABG pH ABG Total CO2 ABG O2 Saturation ABG Base Excess Bob Test ABG Potassium A-a O2 Difference Respiratory Index Glucose Lactate Vent Mode Mechanical Rate FiO2 Tidal Volume PEEP Crit Value Called To Crit Value Called By Crit Value Read Back Blood Gas Notified Time Sodium Potassium Chloride Carbon Dioxide Anion Gap BUN Creatinine Est GFR ( Amer) Est GFR (Non-Af Amer) Random Glucose Calcium Phosphorus Magnesium Total Bilirubin AST ALT Alkaline Phosphatase Troponin I NT-Pro-B Natriuret Pep Total Protein Albumin Globulin Albumin/Globulin Ratio TSH 3rd Generation Cortisol AM Sample Arterial Blood Potassium Urine Color Yellow Urine Clarity Hazy Urine pH 7.0 Ur Specific [place] 1.008 Urine Protein 2+ H Urine Glucose (UA) 1+ H Urine Ketones Trace Urine Blood Negative Urine Nitrate Negative Urine Bilirubin Negative Urine Urobilinogen Normal Ur Leukocyte Esterase 1+ H Urine WBC (Auto) 15 H Urine RBC (Auto) 1 Ur Squamous Epith Cells 3 Urine Bacteria Rare Hyaline Casts 6-10 H Urine Osmolality Ur Random Creatinine Ur Random Sodium Stool Occult Blood Positive H Alcohol, Quantitative Blood Type A POSITIVE Antibody Screen Negative 06/11/18 06/11/18 06/11/18 03:20 03:20 05:15 WBC 13.2 H RBC 2.28 L Hgb 7.4 L Hct 21.0 L MCV 92.3 D MCH 32.5 H MCHC 35.3 RDW 15.3 H Plt Count 141 MPV 7.5 Neut % (Auto) 85.6 H Lymph % (Auto) 3.5 L Blair % (Auto) 10.7 H Eos % (Auto) 0.1 Baso % (Auto) 0.1 Neut # (Auto) 11.3 H Lymph # (Auto) 0.5 L [place] # (Auto) 1.4 H Eos # (Auto) 0.0 Baso # (Auto) 0.0 Neutrophils % (Manual) 86 H Band Neutrophils % 2 Lymphocytes % (Manual) 3 L Monocytes % (Manual) 9 Nucleated RBC % Platelet Estimate Normal Polychromasia Hypochromasia (manual) Poikilocytosis (manual Basophilic Stippling Anisocytosis (manual) Ovalocytes Tra Cells PT INR APTT Puncture Site Rb pCO2 26 L pO2 231 H HCO3 20.8 L ABG pH 7.43 ABG Total CO2 18.1 L ABG O2 Saturation 100.3 H ABG Base Excess -5.4 L Bob Test Na ABG Potassium 3.2 L A-a O2 Difference 93.0 Respiratory Index 0.4 Glucose 152 H Lactate 1.1 Vent Mode Prvc Mechanical Rate 20 FiO2 50.0 Tidal Volume 450 PEEP 5 Crit Value Called To Berhane rn Crit Value Called By Alejandra upper leather cutter Crit Value Read Back Y Blood Gas Notified Time 532 Sodium 115 L* 116.0 L* Potassium 2.4 L* D Chloride 84 L 90.0 L Carbon Dioxide 20 L Anion Gap 13 BUN 12 Creatinine 0.7 L Est GFR ( Amer) > 60 Est GFR (Non-Af Amer) > 60 Random Glucose 141 H Calcium 6.9 L Phosphorus 3.7 Magnesium 1.2 L Total Bilirubin 0.6 AST 72 H D ALT 56 Alkaline Phosphatase 83 Troponin I NT-Pro-B Natriuret Pep Total Protein 4.9 L Albumin 2.5 L Globulin 2.3 Albumin/Globulin Ratio 1.1 TSH 3rd Generation Cortisol AM Sample Arterial Blood Potassium 3.2 L Urine Color Urine Clarity Urine pH Ur Specific [place] Urine Protein Urine Glucose (UA) Urine Ketones Urine Blood Urine Nitrate Urine Bilirubin Urine Urobilinogen Ur Leukocyte Esterase Urine WBC (Auto) Urine RBC (Auto) Ur Squamous Epith Cells Urine Bacteria Hyaline Casts Urine Osmolality Ur Random Creatinine Ur Random Sodium Stool Occult Blood Alcohol, Quantitative Blood Type Antibody Screen 06/11/18 06/11/18 06/11/18 08:27 08:27 08:27 WBC RBC Hgb Hct MCV MCH MCHC RDW Plt Count MPV Neut % (Auto) Lymph % (Auto) [place] % (Auto) Eos % (Auto) Baso % (Auto) Neut # (Auto) Lymph # (Auto) [place] # (Auto) Eos # (Auto) Baso # (Auto) Neutrophils % (Manual) Band Neutrophils % Lymphocytes % (Manual) Monocytes % (Manual) Nucleated RBC % Platelet Estimate Polychromasia Hypochromasia (manual) Poikilocytosis (manual Basophilic Stippling Anisocytosis (manual) Ovalocytes [place] Cells PT INR APTT Puncture Site pCO2 pO2 HCO3 ABG pH ABG Total CO2 ABG O2 Saturation ABG Base Excess Bob Test ABG Potassium A-a O2 Difference Respiratory Index Glucose Lactate Vent Mode Mechanical Rate FiO2 Tidal Volume PEEP Crit Value Called To Crit Value Called By Crit Value Read Back Blood Gas Notified Time Sodium Potassium Chloride Carbon Dioxide Anion Gap BUN Creatinine Est GFR ( Amer) Est GFR (Non-Af Amer) Random Glucose Calcium Phosphorus Magnesium Total Bilirubin AST ALT Alkaline Phosphatase Troponin I NT-Pro-B Natriuret Pep Total Protein Albumin Globulin Albumin/Globulin Ratio TSH 3rd Generation 2.92 Cortisol AM Sample 52.9 H Arterial Blood Potassium Urine Color Urine Clarity Urine pH Ur Specific [place] Urine Protein Urine Glucose (UA) Urine Ketones Urine Blood Urine Nitrate Urine Bilirubin Urine Urobilinogen Ur Leukocyte Esterase Urine WBC (Auto) Urine RBC (Auto) Ur Squamous Epith Cells Urine Bacteria Hyaline Casts Urine Osmolality 199 L Ur Random Creatinine 12.4 Ur Random Sodium 39 Stool Occult Blood Alcohol, Quantitative Blood Type Antibody Screen 06/11/18 06/11/18 06/11/18 12:41 12:41 17:20 WBC 10.9 H RBC 3.26 L Hgb 10.4 L D Hct 29.4 L MCV 90.3 D MCH 31.9 H MCHC 35.3 RDW 16.6 H Plt Count 110 L D MPV 8.0 Neut % (Auto) 86.1 H Lymph % (Auto) 4.8 L [place] % (Auto) 8.8 Eos % (Auto) 0.0 Baso % (Auto) 0.3 Neut # (Auto) 9.4 H Lymph # (Auto) 0.5 L [place] # (Auto) 1.0 H Eos # (Auto) 0.0 Baso # (Auto) 0.0 Neutrophils % (Manual) 79 H Band Neutrophils % 3 H Lymphocytes % (Manual) 8 L Monocytes % (Manual) 10 Nucleated RBC % 1 H Platelet Estimate Slightly decreased L Polychromasia Slight Hypochromasia (manual) Slight Poikilocytosis (manual Slight Basophilic Stippling Slight Anisocytosis (manual) Slight Ovalocytes Slight [place] Cells Slight PT 15.0 H INR 1.4 APTT Puncture Site pCO2 pO2 HCO3 ABG pH ABG Total CO2 ABG O2 Saturation ABG Base Excess Bob Test ABG Potassium A-a O2 Difference Respiratory Index Glucose Lactate Vent Mode Mechanical Rate FiO2 Tidal Volume PEEP Crit Value Called To Crit Value Called By Crit Value Read Back Blood Gas Notified Time Sodium 118 L* Potassium 4.0 Chloride 90 L Carbon Dioxide 18 L Anion Gap 14 BUN 18 Creatinine 0.7 L Est GFR ( Amer) > 60 Est GFR (Non-Af Amer) > 60 Random Glucose 107 Calcium 7.4 L Phosphorus 2.2 L Magnesium 1.6 Total Bilirubin AST ALT Alkaline Phosphatase Troponin I NT-Pro-B Natriuret Pep Total Protein Albumin Globulin Albumin/Globulin Ratio TSH 3rd Generation Cortisol AM Sample Arterial Blood Potassium Urine Color Urine Clarity Urine pH Ur Specific [place] Urine Protein Urine Glucose (UA) Urine Ketones Urine Blood Urine Nitrate Urine Bilirubin Urine Urobilinogen Ur Leukocyte Esterase Urine WBC (Auto) Urine RBC (Auto) Ur Squamous Epith Cells Urine Bacteria Hyaline Casts Urine Osmolality Ur Random Creatinine Ur Random Sodium Stool Occult Blood Alcohol, Quantitative Blood Type Antibody Screen Attending/Attestation - Attestation I have personally seen and examined this patient.: Yes I have fully participated in the care of the patient.: Yes I have reviewed all pertinent clinical information: Yes
[2018-06-11] MEDS ORDERED: Octreotide 1,250 MCG in Dextrose 5% In Water 250 ML IV SCH (12:45)
[2018-06-11 12:46] LABS: BASO % 0.3 % (0.0-2.0); HEMOGLOBIN 10.4 g/dL (12.0-18.0); LYMPH # 0.5 K/uL (1.0-4.3); LYMPH % 4.8 % (20.0-40.0); MEAN CELL VOLUME 90.3 fL (80.0-94.0); MEAN CORPUSCULAR HEMOGLOBIN 31.9 pg (27.0-31.0); MEAN CORPUSCULAR HGB CONC 35.3 g/dL (33.0-37.0); MONO % 8.8 % (0.0-10.0); NEUT # 9.4 K/uL (1.8-7.0); NEUT % 86.1 % (50.0-75.0); NRBC % 0.1 % (0.0-2.0); PLATELET COUNT 110 K/uL (130-400); RBC 3.26 Mil/uL (4.40-5.90); RED CELL DISTRIBUTION WIDTH 16.6 % (11.5-14.5); WHITE BLOOD COUNT 10.9 K/uL (4.8-10.8)
[2018-06-11 13:06] LABS: BLOOD UREA NITROGEN 18 mg/dL (9-20); CALCIUM 7.4 mg/dl (8.6-10.4); GFR NON-AFRICAN AMERICAN > 60
[2018-06-11 13:19] LABS: ANISOCYTOSIS SLIGHT; BANDS 3 % (0-2); HYPOCHROMIC SLIGHT; LYMPHOCYTE 8 % (20-40); MONOCYTE 10 % (0-10); NEUTROPHIL 79 % (50-75); NUCLEATED RED BLOOD CELL 1 % (0-0); PLATELET ESTIMATE SLIGHTLY DECREASED (NORMAL); POLYCHROMIC SLIGHT; TOTAL CELLS COUNTED 100
[2018-06-11 13:20] LABS: BURR CELLS SLIGHT; OVALOCYTES SLIGHT; POIKILOCYTOSIS SLIGHT
[2018-06-11] MEDS ORDERED: Midazolam 50 mg/10 ml 100 MG in Sodium Chloride 0.9% 80 ML IV SCH (13:30)
[2018-06-11] MEDS: Pantoprazole 80 MG in Sodium Chloride 0.9% 100 ML IVPB SCH ×3 (13:48→23:02)
[2018-06-11] MEDS ORDERED: EPINEPHrine 1 mg/ml (1:1000) Inj ONE (14:01)
--- NOTE | 2018-06-11 14:33 | RAD ---
Chest x-ray single frontal view History: Cardiac arrest. Comparison: 08/09/2016 Findings: Endotracheal tube extending into midthoracic trachea. Biapical pleural thickening with upper lobe granulomatous changes. Hyperinflation suggestive for COPD and or emphysematous changes. Nodular density at the right lung base may represent nipple shadow. Clinical correlation. Heart size within normal limits. Degenerative changes in the spine. Gaseous distention of bowel loops in the upper abdomen. Impression: Endotracheal tube extending into midthoracic trachea. Biapical pleural thickening with upper lobe granulomatous changes. Hyperinflation suggestive for COPD and or emphysematous changes. Nodular density at the right lung base may represent nipple shadow. Clinical correlation. Heart size within normal limits. Degenerative changes in the spine. Gaseous distention of bowel loops in the upper abdomen.
--- NOTE | 2018-06-11 14:51 | CP.PCM.CON ---
History of Present Illness - History of Present Illness History of Present Illness: 52 years old male brought to the emergency room in [place]. Patient was successfully resuscitated with normal rhythm. On reviewing the chart there is no history of any cardiac disease in the past. Prior to this episode there is a confusing history. Patient had some kind of seizures and prior to that patient was feeling tired and weak and refused to go to the hospital. Subsequently patient had a cardiac arrest at home and the paramedics successfully resuscitated the patient and the rhythm showed [place]. Patient also had a low hemoglobin of 7.9 and extremely low sodium of 116 mEq. Currently patient is intubated no further history is available. We will evaluate the echocardiogram and cardiac markers. Patient needs to be worked up for hyponatremia which could be the cause of his seizures. Past Patient History - Infectious Disease Hx of Infectious Diseases: None - Past Medical History & Family History Past Medical History?: Yes - Past Social History Smoking Status: Light Smoker < 10 Cigarettes Daily - CARDIAC Hx Hypertension: No - PULMONARY Hx Chronic Obstructive Pulmonary Disease (COPD): Yes - NEUROLOGICAL Hx Seizures: Yes - HEENT Hx HEENT Problems: Yes Other/Comment: hearing loss - RENAL Hx Chronic Kidney Disease: No - ENDOCRINE/METABOLIC Hx Endocrine Disorders: No - HEMATOLOGICAL/ONCOLOGICAL Hx Human Immunodeficiency Virus (HIV): No - INTEGUMENTARY Hx Dermatological Problems: No - MUSCULOSKELETAL/RHEUMATOLOGICAL Hx Back Pain: Yes Hx Falls: Yes Other/Comment: scoliosis - GASTROINTESTINAL HX Swallowing Problems: Yes Hx Ulcer: Yes Other/Comment: removal of portion of intestines - GENITOURINARY/GYNECOLOGICAL Hx Sexually Transmitted Disorders: No - PSYCHIATRIC Hx Substance Use: No - SURGICAL HISTORY Hx Surgeries: Yes Hx Herniorrhaphy: Yes Other/Comment: Endoscopy 08/11/16. - ANESTHESIA Hx Anesthesia: Yes Hx Anesthesia Reactions: No Meds Allergies/Adverse Reactions: Allergies Allergy/AdvReac Type Severity Reaction Status Date / Time No Known Allergies Allergy Verified 06/10/18 23:18 - Medications Medications: Current Medications Norepinephrine Bitartrate 4 mg (/ Sodium Chloride) 254 mls @ 15.24 mls/hr IV .[id number] PRN; Protocol; 4 MCG/MIN PRN Reason: TITRATE PER MD ORDER Last Titration: 06/11/18 14:43 Dose: 6 mcg/min, 22.86 mls/hr Piperacillin Sod/Tazobactam Sod (Zosyn 3.375 Gm Iv Premix) 3.375 gm in 50 mls @ 100 mls/hr IVPB Q6H MAYANK PRN Reason: Protocol Last Admin: 06/11/18 14:47 Dose: 100 mls/hr Pantoprazole Sodium 80 mg/ (Sodium Chloride) 100 mls @ 10 mls/hr IVPB .Q10H MAYANK PRN Reason: 8 MG/HR Last Admin: 06/11/18 13:53 Dose: 10 mls/hr Levetiracetam 500 mg/ Dextrose 105 mls @ 420 mls/hr IVPB Q12H MAYANK Last Admin: 06/11/18 10:20 Dose: 420 mls/hr Octreotide Acetate 1,250 mcg/ (Dextrose) 252.5 mls @ 10.1 mls/hr IV .Q24H MAYANK; 50 MCG/HR PRN Reason: Protocol Last Admin: 06/11/18 13:48 Dose: 10.1 mls/hr Midazolam HCl 100 mg/ Sodium (Chloride) 100 mls @ 1.1 mls/hr IV .Q24H MAYANK; 0.02 MG/KG/HR PRN Reason: Protocol Last Admin: 06/11/18 13:46 Dose: 0.02 mg/kg/hr, 1.1 mls/hr Desmopressin Acetate 2 mcg/ (Sodium Chloride) 50.5 mls @ 100 mls/hr IV ONCE ONE Stop: 06/11/18 15:11 Ceftazidime 1 gm/ Sodium (Chloride) 50 mls @ 100 mls/hr IV DAILY MAYANK PRN Reason: Protocol Results - Vital Signs Recent Vital Signs: Last Vital Signs Temp 98.2 F 06/11/18 12:00 Pulse 114 H 06/11/18 13:24 Resp 32 H 06/11/18 13:24 BP 118/70 06/11/18 13:24 Pulse Ox 100 06/11/18 13:24 - Labs Result Diagrams: 06/11/18 12:41 06/11/18 12:41 Labs: Laboratory Results - last 24 hr 06/10/18 06/10/18 06/10/18 23:37 23:37 23:37 WBC 16.5 H D RBC 2.36 L Hgb 7.7 L Hct 22.7 L MCV 96.1 H D MCH 32.5 H MCHC 33.8 RDW 15.0 H Plt Count 180 D MPV 8.3 Neut % (Auto) 69.8 Lymph % (Auto) 18.5 L [place] % (Auto) 10.9 H Eos % (Auto) 0.5 Baso % (Auto) 0.3 Neut # (Auto) 11.5 H Lymph # (Auto) 3.0 [place] # (Auto) 1.8 H Eos # (Auto) 0.1 Baso # (Auto) 0.1 Neutrophils % (Manual) Band Neutrophils % Lymphocytes % (Manual) Monocytes % (Manual) Nucleated RBC % Platelet Estimate Polychromasia Hypochromasia (manual) Poikilocytosis (manual Basophilic Stippling Anisocytosis (manual) Ovalocytes Tra Cells PT 15.5 H INR 1.4 APTT 40 H Puncture Site pCO2 pO2 HCO3 ABG pH ABG Total CO2 ABG O2 Saturation ABG Base Excess Bob Test ABG Potassium A-a O2 Difference Respiratory Index Glucose Lactate Vent Mode Mechanical Rate FiO2 Tidal Volume PEEP Crit Value Called To Crit Value Called By Crit Value Read Back Blood Gas Notified Time Sodium 109 L* Potassium 3.3 L Chloride 71 L D Carbon Dioxide 13 L Anion Gap 28 H BUN 9 Creatinine 1.0 Est GFR ( Amer) > 60 Est GFR (Non-Af Amer) > 60 Random Glucose 176 H Calcium 7.7 L Phosphorus Magnesium Total Bilirubin 0.7 AST 45 ALT 31 Alkaline Phosphatase 75 Troponin I NT-Pro-B Natriuret Pep Total Protein 4.8 L Albumin 2.4 L D Globulin 2.4 Albumin/Globulin Ratio 1.0 TSH 3rd Generation Cortisol AM Sample Arterial Blood Potassium Urine Color Urine Clarity Urine pH Ur Specific [place] Urine Protein Urine Glucose (UA) Urine Ketones Urine Blood Urine Nitrate Urine Bilirubin Urine Urobilinogen Ur Leukocyte Esterase Urine WBC (Auto) Urine RBC (Auto) Ur Squamous Epith Cells Urine Bacteria Hyaline Casts Urine Osmolality Ur Random Creatinine Ur Random Sodium Stool Occult Blood Alcohol, Quantitative Blood Type Antibody Screen 06/10/18 06/10/18 06/11/18 23:37 23:55 00:07 WBC RBC Hgb Hct MCV MCH MCHC RDW Plt Count MPV Neut % (Auto) Lymph % (Auto) [place] % (Auto) Eos % (Auto) Baso % (Auto) Neut # (Auto) Lymph # (Auto) [place] # (Auto) Eos # (Auto) Baso # (Auto) Neutrophils % (Manual) Band Neutrophils % Lymphocytes % (Manual) Monocytes % (Manual) Nucleated RBC % Platelet Estimate Polychromasia Hypochromasia (manual) Poikilocytosis (manual Basophilic Stippling Anisocytosis (manual) Ovalocytes Tra Cells PT INR APTT Puncture Site Rfem pCO2 28 L pO2 458 H HCO3 15.6 L ABG pH 7.28 L ABG Total CO2 14.1 L ABG O2 Saturation 99.7 H ABG Base Excess -12.0 L Bob Test Na ABG Potassium 3.2 L A-a O2 Difference 220.0 Respiratory Index 0.5 Glucose 164 H Lactate 7.7 H* Vent Mode Prvc Mechanical Rate 20 FiO2 100.0 Tidal Volume 500 PEEP 5 Crit Value Called To Dr. meehan Crit Value Called By Alejandra rounding machine tender Crit Value Read Back Y Blood Gas Notified Time 0 Sodium 106.0 L* Potassium Chloride 77.0 L Carbon Dioxide Anion Gap BUN Creatinine Est GFR ( Amer) Est GFR (Non-Af Amer) Random Glucose Calcium Phosphorus Magnesium Total Bilirubin AST ALT Alkaline Phosphatase Troponin I 0.0380 NT-Pro-B Natriuret Pep 3480 H Total Protein Albumin Globulin Albumin/Globulin Ratio TSH 3rd Generation Cortisol AM Sample Arterial Blood Potassium 3.2 L Urine Color Urine Clarity Urine pH Ur Specific [place] Urine Protein Urine Glucose (UA) Urine Ketones Urine Blood Urine Nitrate Urine Bilirubin Urine Urobilinogen Ur Leukocyte Esterase Urine WBC (Auto) Urine RBC (Auto) Ur Squamous Epith Cells Urine Bacteria Hyaline Casts Urine Osmolality Ur Random Creatinine Ur Random Sodium Stool Occult Blood Alcohol, Quantitative < 10 Blood Type Antibody Screen 06/11/18 06/11/18 06/11/18 00:39 00:45 03:20 WBC RBC Hgb Hct MCV MCH MCHC RDW Plt Count MPV Neut % (Auto) Lymph % (Auto) [place] % (Auto) Eos % (Auto) Baso % (Auto) Neut # (Auto) Lymph # (Auto) [place] # (Auto) Eos # (Auto) Baso # (Auto) Neutrophils % (Manual) Band Neutrophils % Lymphocytes % (Manual) Monocytes % (Manual) Nucleated RBC % Platelet Estimate Polychromasia Hypochromasia (manual) Poikilocytosis (manual Basophilic Stippling Anisocytosis (manual) Ovalocytes Tra Cells PT INR APTT Puncture Site pCO2 pO2 HCO3 ABG pH ABG Total CO2 ABG O2 Saturation ABG Base Excess Bob Test ABG Potassium A-a O2 Difference Respiratory Index Glucose Lactate Vent Mode Mechanical Rate FiO2 Tidal Volume PEEP Crit Value Called To Crit Value Called By Crit Value Read Back Blood Gas Notified Time Sodium Potassium Chloride Carbon Dioxide Anion Gap BUN Creatinine Est GFR ( Amer) Est GFR (Non-Af Amer) Random Glucose Calcium Phosphorus Magnesium Total Bilirubin AST ALT Alkaline Phosphatase Troponin I NT-Pro-B Natriuret Pep Total Protein Albumin Globulin Albumin/Globulin Ratio TSH 3rd Generation Cortisol AM Sample Arterial Blood Potassium Urine Color Yellow Urine Clarity Hazy Urine pH 7.0 Ur Specific [place] 1.008 Urine Protein 2+ H Urine Glucose (UA) 1+ H Urine Ketones Trace Urine Blood Negative Urine Nitrate Negative Urine Bilirubin Negative Urine Urobilinogen Normal Ur Leukocyte Esterase 1+ H Urine WBC (Auto) 15 H Urine RBC (Auto) 1 Ur Squamous Epith Cells 3 Urine Bacteria Rare Hyaline Casts 6-10 H Urine Osmolality Ur Random Creatinine Ur Random Sodium Stool Occult Blood Positive H Alcohol, Quantitative Blood Type A POSITIVE Antibody Screen Negative 06/11/18 06/11/18 06/11/18 03:20 03:20 05:15 WBC 13.2 H RBC 2.28 L Hgb 7.4 L Hct 21.0 L MCV 92.3 D MCH 32.5 H MCHC 35.3 RDW 15.3 H Plt Count 141 MPV 7.5 Neut % (Auto) 85.6 H Lymph % (Auto) 3.5 L [place] % (Auto) 10.7 H Eos % (Auto) 0.1 Baso % (Auto) 0.1 Neut # (Auto) 11.3 H Lymph # (Auto) 0.5 L [place] # (Auto) 1.4 H Eos # (Auto) 0.0 Baso # (Auto) 0.0 Neutrophils % (Manual) 86 H Band Neutrophils % 2 Lymphocytes % (Manual) 3 L Monocytes % (Manual) 9 Nucleated RBC % Platelet Estimate Normal Polychromasia Hypochromasia (manual) Poikilocytosis (manual Basophilic Stippling Anisocytosis (manual) Ovalocytes Tra Cells PT INR APTT Puncture Site Rb pCO2 26 L pO2 231 H HCO3 20.8 L ABG pH 7.43 ABG Total CO2 18.1 L ABG O2 Saturation 100.3 H ABG Base Excess -5.4 L Bob Test Na ABG Potassium 3.2 L A-a O2 Difference 93.0 Respiratory Index 0.4 Glucose 152 H Lactate 1.1 Vent Mode Prvc Mechanical Rate 20 FiO2 50.0 Tidal Volume 450 PEEP 5 Crit Value Called To Berhane rn Crit Value Called By Alejandra rounding machine tender Crit Value Read Back Y Blood Gas Notified Time 532 Sodium 115 L* 116.0 L* Potassium 2.4 L* D Chloride 84 L 90.0 L Carbon Dioxide 20 L Anion Gap 13 BUN 12 Creatinine 0.7 L Est GFR ( Amer) > 60 Est GFR (Non-Af Amer) > 60 Random Glucose 141 H Calcium 6.9 L Phosphorus 3.7 Magnesium 1.2 L Total Bilirubin 0.6 AST 72 H D ALT 56 Alkaline Phosphatase 83 Troponin I NT-Pro-B Natriuret Pep Total Protein 4.9 L Albumin 2.5 L Globulin 2.3 Albumin/Globulin Ratio 1.1 TSH 3rd Generation Cortisol AM Sample Arterial Blood Potassium 3.2 L Urine Color Urine Clarity Urine pH Ur Specific [place] Urine Protein Urine Glucose (UA) Urine Ketones Urine Blood Urine Nitrate Urine Bilirubin Urine Urobilinogen Ur Leukocyte Esterase Urine WBC (Auto) Urine RBC (Auto) Ur Squamous Epith Cells Urine Bacteria Hyaline Casts Urine Osmolality Ur Random Creatinine Ur Random Sodium Stool Occult Blood Alcohol, Quantitative Blood Type Antibody Screen 06/11/18 06/11/18 06/11/18 08:27 08:27 08:27 WBC RBC Hgb Hct MCV MCH MCHC RDW Plt Count MPV Neut % (Auto) Lymph % (Auto) [place] % (Auto) Eos % (Auto) Baso % (Auto) Neut # (Auto) Lymph # (Auto) [place] # (Auto) Eos # (Auto) Baso # (Auto) Neutrophils % (Manual) Band Neutrophils % Lymphocytes % (Manual) Monocytes % (Manual) Nucleated RBC % Platelet Estimate Polychromasia Hypochromasia (manual) Poikilocytosis (manual Basophilic Stippling Anisocytosis (manual) Ovalocytes Tra Cells PT INR APTT Puncture Site pCO2 pO2 HCO3 ABG pH ABG Total CO2 ABG O2 Saturation ABG Base Excess Bob Test ABG Potassium A-a O2 Difference Respiratory Index Glucose Lactate Vent Mode Mechanical Rate FiO2 Tidal Volume PEEP Crit Value Called To Crit Value Called By Crit Value Read Back Blood Gas Notified Time Sodium Potassium Chloride Carbon Dioxide Anion Gap BUN Creatinine Est GFR ( Amer) Est GFR (Non-Af Amer) Random Glucose Calcium Phosphorus Magnesium Total Bilirubin AST ALT Alkaline Phosphatase Troponin I NT-Pro-B Natriuret Pep Total Protein Albumin Globulin Albumin/Globulin Ratio TSH 3rd Generation 2.92 Cortisol AM Sample 52.9 H Arterial Blood Potassium Urine Color Urine Clarity Urine pH Ur Specific [place] Urine Protein Urine Glucose (UA) Urine Ketones Urine Blood Urine Nitrate Urine Bilirubin Urine Urobilinogen Ur Leukocyte Esterase Urine WBC (Auto) Urine RBC (Auto) Ur Squamous Epith Cells Urine Bacteria Hyaline Casts Urine Osmolality 199 L Ur Random Creatinine 12.4 Ur Random Sodium 39 Stool Occult Blood Alcohol, Quantitative Blood Type Antibody Screen 06/11/18 06/11/18 12:41 12:41 WBC 10.9 H RBC 3.26 L Hgb 10.4 L D Hct 29.4 L MCV 90.3 D MCH 31.9 H MCHC 35.3 RDW 16.6 H Plt Count 110 L D MPV 8.0 Neut % (Auto) 86.1 H Lymph % (Auto) 4.8 L [place] % (Auto) 8.8 Eos % (Auto) 0.0 Baso % (Auto) 0.3 Neut # (Auto) 9.4 H Lymph # (Auto) 0.5 L [place] # (Auto) 1.0 H Eos # (Auto) 0.0 Baso # (Auto) 0.0 Neutrophils % (Manual) 79 H Band Neutrophils % 3 H Lymphocytes % (Manual) 8 L Monocytes % (Manual) 10 Nucleated RBC % 1 H Platelet Estimate Slightly decreased L Polychromasia Slight Hypochromasia (manual) Slight Poikilocytosis (manual Slight Basophilic Stippling Slight Anisocytosis (manual) Slight Ovalocytes Slight [place] Cells Slight PT INR APTT Puncture Site pCO2 pO2 HCO3 ABG pH ABG Total CO2 ABG O2 Saturation ABG Base Excess Bob Test ABG Potassium A-a O2 Difference Respiratory Index Glucose Lactate Vent Mode Mechanical Rate FiO2 Tidal Volume PEEP Crit Value Called To Crit Value Called By Crit Value Read Back Blood Gas Notified Time Sodium 118 L* Potassium 4.0 Chloride 90 L Carbon Dioxide 18 L Anion Gap 14 BUN 18 Creatinine 0.7 L Est GFR ( Amer) > 60 Est GFR (Non-Af Amer) > 60 Random Glucose 107 Calcium 7.4 L Phosphorus 2.2 L Magnesium 1.6 Total Bilirubin AST ALT Alkaline Phosphatase Troponin I NT-Pro-B Natriuret Pep Total Protein Albumin Globulin Albumin/Globulin Ratio TSH 3rd Generation Cortisol AM Sample Arterial Blood Potassium Urine Color Urine Clarity Urine pH Ur Specific [place] Urine Protein Urine Glucose (UA) Urine Ketones Urine Blood Urine Nitrate Urine Bilirubin Urine Urobilinogen Ur Leukocyte Esterase Urine WBC (Auto) Urine RBC (Auto) Ur Squamous Epith Cells Urine Bacteria Hyaline Casts Urine Osmolality Ur Random Creatinine Ur Random Sodium Stool Occult Blood Alcohol, Quantitative Blood Type Antibody Screen
--- NOTE | 2018-06-11 14:52 | RAD ---
Chest x-ray single frontal view History: Intubated. Comparison: 06/11/2018 Findings: Endotracheal tube extending into midthoracic trachea. NG tube extending into the stomach. Left central venous catheter in stable position. Biapical pleural thickening with upper lobe granulomatous changes. Diffuse increased interstitial lung markings bilaterally. Right hilar prominence. Tortuous ectatic aorta. Degenerative changes in the spine and shoulders. Postsurgical changes of the left humerus. Impression: Endotracheal tube extending into midthoracic trachea. NG tube extending into the stomach. Left central venous catheter in stable position. Biapical pleural thickening with upper lobe granulomatous changes. Diffuse increased interstitial lung markings bilaterally. Right hilar prominence. Tortuous ectatic aorta. Degenerative changes in the spine and shoulders. Postsurgical changes of the left humerus.
[2018-06-11] MEDS ORDERED: cefTAZidime 1 GM in Sodium Chloride 0.9% 50 ML IV SCH (15:00)
[2018-06-11] MEDS ORDERED: Midazolam 2 MG/2 ML VIAL ONE ×2 (15:03)
--- NOTE | 2018-06-11 15:38 | CP.PCM.CON ---
History of Present Illness - History of Present Illness History of Present Illness: Patient is a 52 year old male with past medical history seizures, COPD, hiatal hernia, alcohol abuse presenting with chief complaint of cardiac arrest and respiratory failure. History was obtained from patient's sister and prior records as patient was sedated and intubated upon arrival. Patient was complaining of shortness of breath and was found to have low blood pressure around 9PM. However he refused to go to the hospital for evaluation. He was then found to have seizures after which the ambulance was called. ACLS protocol was initiated, patient received 1 amp epi with ROSC. Patient was intubated and arrived at ED. Patient has long history of alcohol abuse and seizures likely secondary to alcohol withdrawal. Patient is reportedly non compliant with his seizure medications. Past medical history: seizures, COPD, hiatal hernia, alcohol abuse Past surgical: excision of small intestine Social: two 24 oz. beers daily for 30 years, 10 cigarettes a day for 30 years, no recreational drug use Allergies: NKDA PMD: Dr. Rodríguez On exam: patient is now on versed drip. Pupils: 3mm-2mm with light. no dolls, no corneals, no gag. Past Patient History - Infectious Disease Hx of Infectious Diseases: None - Past Medical History & Family History Past Medical History?: Yes - Past Social History Smoking Status: Light Smoker < 10 Cigarettes Daily - CARDIAC Hx Hypertension: No - PULMONARY Hx Chronic Obstructive Pulmonary Disease (COPD): Yes - NEUROLOGICAL Hx Seizures: Yes - HEENT Hx HEENT Problems: Yes Other/Comment: hearing loss - RENAL Hx Chronic Kidney Disease: No - ENDOCRINE/METABOLIC Hx Endocrine Disorders: No - HEMATOLOGICAL/ONCOLOGICAL Hx Human Immunodeficiency Virus (HIV): No - INTEGUMENTARY Hx Dermatological Problems: No - MUSCULOSKELETAL/RHEUMATOLOGICAL Hx Back Pain: Yes Hx Falls: Yes Other/Comment: scoliosis - GASTROINTESTINAL HX Swallowing Problems: Yes Hx Ulcer: Yes Other/Comment: removal of portion of intestines - GENITOURINARY/GYNECOLOGICAL Hx Sexually Transmitted Disorders: No - PSYCHIATRIC Hx Substance Use: No - SURGICAL HISTORY Hx Surgeries: Yes Hx Herniorrhaphy: Yes Other/Comment: Endoscopy 08/11/16. - ANESTHESIA Hx Anesthesia: Yes Hx Anesthesia Reactions: No Meds Allergies/Adverse Reactions: Allergies Allergy/AdvReac Type Severity Reaction Status Date / Time No Known Allergies Allergy Verified 06/10/18 23:18 - Medications Medications: Current Medications Norepinephrine Bitartrate 4 mg (/ Sodium Chloride) 254 mls @ 15.24 mls/hr IV .[id number] PRN; Protocol; 4 MCG/MIN PRN Reason: TITRATE PER MD ORDER Last Titration: 06/11/18 14:43 Dose: 6 mcg/min, 22.86 mls/hr Piperacillin Sod/Tazobactam Sod (Zosyn 3.375 Gm Iv Premix) 3.375 gm in 50 mls @ 100 mls/hr IVPB Q6H MAYANK PRN Reason: Protocol Last Admin: 06/11/18 14:47 Dose: 100 mls/hr Pantoprazole Sodium 80 mg/ (Sodium Chloride) 100 mls @ 10 mls/hr IVPB .Q10H MAYANK PRN Reason: 8 MG/HR Last Admin: 06/11/18 13:53 Dose: 10 mls/hr Levetiracetam 500 mg/ Dextrose 105 mls @ 420 mls/hr IVPB Q12H MAYANK Last Admin: 06/11/18 10:20 Dose: 420 mls/hr Octreotide Acetate 1,250 mcg/ (Dextrose) 252.5 mls @ 10.1 mls/hr IV .Q24H MAYANK; 50 MCG/HR PRN Reason: Protocol Last Admin: 06/11/18 13:48 Dose: 10.1 mls/hr Midazolam HCl 100 mg/ Sodium (Chloride) 100 mls @ 1.1 mls/hr IV .Q24H MAYANK; 0.02 MG/KG/HR PRN Reason: Protocol Last Admin: 06/11/18 13:46 Dose: 0.02 mg/kg/hr, 1.1 mls/hr Ceftriaxone Sodium 1 gm/ (Sodium Chloride) 50 mls @ 100 mls/hr IVPB DAILY MAYANK PRN Reason: Protocol Results - Vital Signs Recent Vital Signs: Last Vital Signs Temp 98.2 F 06/11/18 12:00 Pulse 94 H 06/11/18 15:28 Resp 25 H 06/11/18 15:28 BP 115/65 06/11/18 15:28 Pulse Ox 100 06/11/18 15:28 - Labs Result Diagrams: 06/11/18 12:41 06/11/18 12:41 Labs: Laboratory Results - last 24 hr 06/10/18 06/10/18 06/10/18 23:37 23:37 23:37 WBC 16.5 H D RBC 2.36 L Hgb 7.7 L Hct 22.7 L MCV 96.1 H D MCH 32.5 H MCHC 33.8 RDW 15.0 H Plt Count 180 D MPV 8.3 Neut % (Auto) 69.8 Lymph % (Auto) 18.5 L [place] % (Auto) 10.9 H Eos % (Auto) 0.5 Baso % (Auto) 0.3 Neut # (Auto) 11.5 H Lymph # (Auto) 3.0 [place] # (Auto) 1.8 H Eos # (Auto) 0.1 Baso # (Auto) 0.1 Neutrophils % (Manual) Band Neutrophils % Lymphocytes % (Manual) Monocytes % (Manual) Nucleated RBC % Platelet Estimate Polychromasia Hypochromasia (manual) Poikilocytosis (manual Basophilic Stippling Anisocytosis (manual) Ovalocytes [place] Cells PT 15.5 H INR 1.4 APTT 40 H Puncture Site pCO2 pO2 HCO3 ABG pH ABG Total CO2 ABG O2 Saturation ABG Base Excess Bob Test ABG Potassium A-a O2 Difference Respiratory Index Glucose Lactate Vent Mode Mechanical Rate FiO2 Tidal Volume PEEP Crit Value Called To Crit Value Called By Crit Value Read Back Blood Gas Notified Time Sodium 109 L* Potassium 3.3 L Chloride 71 L D Carbon Dioxide 13 L Anion Gap 28 H BUN 9 Creatinine 1.0 Est GFR ( Amer) > 60 Est GFR (Non-Af Amer) > 60 Random Glucose 176 H Calcium 7.7 L Phosphorus Magnesium Total Bilirubin 0.7 AST 45 ALT 31 Alkaline Phosphatase 75 Troponin I NT-Pro-B Natriuret Pep Total Protein 4.8 L Albumin 2.4 L D Globulin 2.4 Albumin/Globulin Ratio 1.0 TSH 3rd Generation Cortisol AM Sample Arterial Blood Potassium Urine Color Urine Clarity Urine pH Ur Specific [place] Urine Protein Urine Glucose (UA) Urine Ketones Urine Blood Urine Nitrate Urine Bilirubin Urine Urobilinogen Ur Leukocyte Esterase Urine WBC (Auto) Urine RBC (Auto) Ur Squamous Epith Cells Urine Bacteria Hyaline Casts Urine Osmolality Ur Random Creatinine Ur Random Sodium Stool Occult Blood Alcohol, Quantitative Blood Type Antibody Screen 06/10/18 06/10/18 06/11/18 23:37 23:55 00:07 WBC RBC Hgb Hct MCV MCH MCHC RDW Plt Count MPV Neut % (Auto) Lymph % (Auto) [place] % (Auto) Eos % (Auto) Baso % (Auto) Neut # (Auto) Lymph # (Auto) [place] # (Auto) Eos # (Auto) Baso # (Auto) Neutrophils % (Manual) Band Neutrophils % Lymphocytes % (Manual) Monocytes % (Manual) Nucleated RBC % Platelet Estimate Polychromasia Hypochromasia (manual) Poikilocytosis (manual Basophilic Stippling Anisocytosis (manual) Ovalocytes [place] Cells PT INR APTT Puncture Site Rfem pCO2 28 L pO2 458 H HCO3 15.6 L ABG pH 7.28 L ABG Total CO2 14.1 L ABG O2 Saturation 99.7 H ABG Base Excess -12.0 L Bob Test Na ABG Potassium 3.2 L A-a O2 Difference 220.0 Respiratory Index 0.5 Glucose 164 H Lactate 7.7 H* Vent Mode Prvc Mechanical Rate 20 FiO2 100.0 Tidal Volume 500 PEEP 5 Crit Value Called To Dr. meehan Crit Value Called By Alejandra management and budget analyst Crit Value Read Back Y Blood Gas Notified Time 0 Sodium 106.0 L* Potassium Chloride 77.0 L Carbon Dioxide Anion Gap BUN Creatinine Est GFR ( Amer) Est GFR (Non-Af Amer) Random Glucose Calcium Phosphorus Magnesium Total Bilirubin AST ALT Alkaline Phosphatase Troponin I 0.0380 NT-Pro-B Natriuret Pep 3480 H Total Protein Albumin Globulin Albumin/Globulin Ratio TSH 3rd Generation Cortisol AM Sample Arterial Blood Potassium 3.2 L Urine Color Urine Clarity Urine pH Ur Specific [place] Urine Protein Urine Glucose (UA) Urine Ketones Urine Blood Urine Nitrate Urine Bilirubin Urine Urobilinogen Ur Leukocyte Esterase Urine WBC (Auto) Urine RBC (Auto) Ur Squamous Epith Cells Urine Bacteria Hyaline Casts Urine Osmolality Ur Random Creatinine Ur Random Sodium Stool Occult Blood Alcohol, Quantitative < 10 Blood Type Antibody Screen 06/11/18 06/11/18 06/11/18 00:39 00:45 03:20 WBC RBC Hgb Hct MCV MCH MCHC RDW Plt Count MPV Neut % (Auto) Lymph % (Auto) [place] % (Auto) Eos % (Auto) Baso % (Auto) Neut # (Auto) Lymph # (Auto) [place] # (Auto) Eos # (Auto) Baso # (Auto) Neutrophils % (Manual) Band Neutrophils % Lymphocytes % (Manual) Monocytes % (Manual) Nucleated RBC % Platelet Estimate Polychromasia Hypochromasia (manual) Poikilocytosis (manual Basophilic Stippling Anisocytosis (manual) Ovalocytes Tra Cells PT INR APTT Puncture Site pCO2 pO2 HCO3 ABG pH ABG Total CO2 ABG O2 Saturation ABG Base Excess Bob Test ABG Potassium A-a O2 Difference Respiratory Index Glucose Lactate Vent Mode Mechanical Rate FiO2 Tidal Volume PEEP Crit Value Called To Crit Value Called By Crit Value Read Back Blood Gas Notified Time Sodium Potassium Chloride Carbon Dioxide Anion Gap BUN Creatinine Est GFR ( Amer) Est GFR (Non-Af Amer) Random Glucose Calcium Phosphorus Magnesium Total Bilirubin AST ALT Alkaline Phosphatase Troponin I NT-Pro-B Natriuret Pep Total Protein Albumin Globulin Albumin/Globulin Ratio TSH 3rd Generation Cortisol AM Sample Arterial Blood Potassium Urine Color Yellow Urine Clarity Hazy Urine pH 7.0 Ur Specific [place] 1.008 Urine Protein 2+ H Urine Glucose (UA) 1+ H Urine Ketones Trace Urine Blood Negative Urine Nitrate Negative Urine Bilirubin Negative Urine Urobilinogen Normal Ur Leukocyte Esterase 1+ H Urine WBC (Auto) 15 H Urine RBC (Auto) 1 Ur Squamous Epith Cells 3 Urine Bacteria Rare Hyaline Casts 6-10 H Urine Osmolality Ur Random Creatinine Ur Random Sodium Stool Occult Blood Positive H Alcohol, Quantitative Blood Type A POSITIVE Antibody Screen Negative 06/11/18 06/11/18 06/11/18 03:20 03:20 05:15 WBC 13.2 H RBC 2.28 L Hgb 7.4 L Hct 21.0 L MCV 92.3 D MCH 32.5 H MCHC 35.3 RDW 15.3 H Plt Count 141 MPV 7.5 Neut % (Auto) 85.6 H Lymph % (Auto) 3.5 L [place] % (Auto) 10.7 H Eos % (Auto) 0.1 Baso % (Auto) 0.1 Neut # (Auto) 11.3 H Lymph # (Auto) 0.5 L [place] # (Auto) 1.4 H Eos # (Auto) 0.0 Baso # (Auto) 0.0 Neutrophils % (Manual) 86 H Band Neutrophils % 2 Lymphocytes % (Manual) 3 L Monocytes % (Manual) 9 Nucleated RBC % Platelet Estimate Normal Polychromasia Hypochromasia (manual) Poikilocytosis (manual Basophilic Stippling Anisocytosis (manual) Ovalocytes [place] Cells PT INR APTT Puncture Site Rb pCO2 26 L pO2 231 H HCO3 20.8 L ABG pH 7.43 ABG Total CO2 18.1 L ABG O2 Saturation 100.3 H ABG Base Excess -5.4 L Bob Test Na ABG Potassium 3.2 L A-a O2 Difference 93.0 Respiratory Index 0.4 Glucose 152 H Lactate 1.1 Vent Mode Prvc Mechanical Rate 20 FiO2 50.0 Tidal Volume 450 PEEP 5 Crit Value Called To Berhane rn Crit Value Called By Alejandra management and budget analyst Crit Value Read Back Y Blood Gas Notified Time 532 Sodium 115 L* 116.0 L* Potassium 2.4 L* D Chloride 84 L 90.0 L Carbon Dioxide 20 L Anion Gap 13 BUN 12 Creatinine 0.7 L Est GFR ( Amer) > 60 Est GFR (Non-Af Amer) > 60 Random Glucose 141 H Calcium 6.9 L Phosphorus 3.7 Magnesium 1.2 L Total Bilirubin 0.6 AST 72 H D ALT 56 Alkaline Phosphatase 83 Troponin I NT-Pro-B Natriuret Pep Total Protein 4.9 L Albumin 2.5 L Globulin 2.3 Albumin/Globulin Ratio 1.1 TSH 3rd Generation Cortisol AM Sample Arterial Blood Potassium 3.2 L Urine Color Urine Clarity Urine pH Ur Specific [place] Urine Protein Urine Glucose (UA) Urine Ketones Urine Blood Urine Nitrate Urine Bilirubin Urine Urobilinogen Ur Leukocyte Esterase Urine WBC (Auto) Urine RBC (Auto) Ur Squamous Epith Cells Urine Bacteria Hyaline Casts Urine Osmolality Ur Random Creatinine Ur Random Sodium Stool Occult Blood Alcohol, Quantitative Blood Type Antibody Screen 06/11/18 06/11/18 06/11/18 08:27 08:27 08:27 WBC RBC Hgb Hct MCV MCH MCHC RDW Plt Count MPV Neut % (Auto) Lymph % (Auto) [place] % (Auto) Eos % (Auto) Baso % (Auto) Neut # (Auto) Lymph # (Auto) [place] # (Auto) Eos # (Auto) Baso # (Auto) Neutrophils % (Manual) Band Neutrophils % Lymphocytes % (Manual) Monocytes % (Manual) Nucleated RBC % Platelet Estimate Polychromasia Hypochromasia (manual) Poikilocytosis (manual Basophilic Stippling Anisocytosis (manual) Ovalocytes Tra Cells PT INR APTT Puncture Site pCO2 pO2 HCO3 ABG pH ABG Total CO2 ABG O2 Saturation ABG Base Excess Bob Test ABG Potassium A-a O2 Difference Respiratory Index Glucose Lactate Vent Mode Mechanical Rate FiO2 Tidal Volume PEEP Crit Value Called To Crit Value Called By Crit Value Read Back Blood Gas Notified Time Sodium Potassium Chloride Carbon Dioxide Anion Gap BUN Creatinine Est GFR ( Amer) Est GFR (Non-Af Amer) Random Glucose Calcium Phosphorus Magnesium Total Bilirubin AST ALT Alkaline Phosphatase Troponin I NT-Pro-B Natriuret Pep Total Protein Albumin Globulin Albumin/Globulin Ratio TSH 3rd Generation 2.92 Cortisol AM Sample 52.9 H Arterial Blood Potassium Urine Color Urine Clarity Urine pH Ur Specific [place] Urine Protein Urine Glucose (UA) Urine Ketones Urine Blood Urine Nitrate Urine Bilirubin Urine Urobilinogen Ur Leukocyte Esterase Urine WBC (Auto) Urine RBC (Auto) Ur Squamous Epith Cells Urine Bacteria Hyaline Casts Urine Osmolality 199 L Ur Random Creatinine 12.4 Ur Random Sodium 39 Stool Occult Blood Alcohol, Quantitative Blood Type Antibody Screen 06/11/18 06/11/18 12:41 12:41 WBC 10.9 H RBC 3.26 L Hgb 10.4 L D Hct 29.4 L MCV 90.3 D MCH 31.9 H MCHC 35.3 RDW 16.6 H Plt Count 110 L D MPV 8.0 Neut % (Auto) 86.1 H Lymph % (Auto) 4.8 L [place] % (Auto) 8.8 Eos % (Auto) 0.0 Baso % (Auto) 0.3 Neut # (Auto) 9.4 H Lymph # (Auto) 0.5 L [place] # (Auto) 1.0 H Eos # (Auto) 0.0 Baso # (Auto) 0.0 Neutrophils % (Manual) 79 H Band Neutrophils % 3 H Lymphocytes % (Manual) 8 L Monocytes % (Manual) 10 Nucleated RBC % 1 H Platelet Estimate Slightly decreased L Polychromasia Slight Hypochromasia (manual) Slight Poikilocytosis (manual Slight Basophilic Stippling Slight Anisocytosis (manual) Slight Ovalocytes Slight [place] Cells Slight PT INR APTT Puncture Site pCO2 pO2 HCO3 ABG pH ABG Total CO2 ABG O2 Saturation ABG Base Excess Bob Test ABG Potassium A-a O2 Difference Respiratory Index Glucose Lactate Vent Mode Mechanical Rate FiO2 Tidal Volume PEEP Crit Value Called To Crit Value Called By Crit Value Read Back Blood Gas Notified Time Sodium 118 L* Potassium 4.0 Chloride 90 L Carbon Dioxide 18 L Anion Gap 14 BUN 18 Creatinine 0.7 L Est GFR ( Amer) > 60 Est GFR (Non-Af Amer) > 60 Random Glucose 107 Calcium 7.4 L Phosphorus 2.2 L Magnesium 1.6 Total Bilirubin AST ALT Alkaline Phosphatase Troponin I NT-Pro-B Natriuret Pep Total Protein Albumin Globulin Albumin/Globulin Ratio TSH 3rd Generation Cortisol AM Sample Arterial Blood Potassium Urine Color Urine Clarity Urine pH Ur Specific [place] Urine Protein Urine Glucose (UA) Urine Ketones Urine Blood Urine Nitrate Urine Bilirubin Urine Urobilinogen Ur Leukocyte Esterase Urine WBC (Auto) Urine RBC (Auto) Ur Squamous Epith Cells Urine Bacteria Hyaline Casts Urine Osmolality Ur Random Creatinine Ur Random Sodium Stool Occult Blood Alcohol, Quantitative Blood Type Antibody Screen Assessment & Plan - Assessment and Plan (Free Text) Assessment: CT Head: atrophy diffuse, with some increase in ventricular size. A/P: 52 yr old male, who was found down, after having several alcohol withdrawal seizures and now is intubated, undergoing egd by GI for GI bleed. He is encephalopathic, and will need an EEG. He most likely has some component of anoxic encephalopathy.
[2018-06-11] MEDS ORDERED: Simethicone 40 mg/0.6 ml Liquid (30 ml) ONE (15:46)
[2018-06-11] MEDS ORDERED: Etomidate 20 mg/10ml Inj IV ONE (16:18)
--- NOTE | 2018-06-11 16:19 | CT ---
CT chest abdomen and pelvis History: Post cardiac arrest. Comparison: None available. Technique: Multiple contiguous axial images were performed through the chest, abdomen, and pelvis without the use of intravenous contrast. Subsequently, sagittal and coronal reformatted images were obtained through the chest, abdomen, and pelvis. This CT exam was performed using one or more of the following dose reduction techniques: Automated exposure control, adjustment of the mA and/or kV according to patient size, and/or use of iterative reconstruction technique. Findings: CT chest: Endotracheal tube with tip between the clavicles and lila. Tip is estimated to be approximately 3 centimeters above the lila based on the frontal manager hi image. Left central jugular line present with tip in the SVC. Thin-walled cavity in the right upper lobe which may be the sequelae of prior infection. 5 millimeter subpleural nodule within the anterior right middle lobe on series 4, image 56. Focal consolidation within the inferior right middle lobe. Focal consolidation within the right lower lobe. Patchy ground-glass opacities in both lungs which are nonspecific but may be secondary to atelectasis versus contusion versus pneumonitis. Calcification and plaque within the aorta. Ascending aorta measures up to 3.3 centimeters. Few shotty mediastinal lymph nodes. Few shotty hilar lymph nodes. Bilateral dependent atelectasis. No pleural effusion or pneumothorax. Coronary artery disease noted. Aortic calcifications. Oblique fracture through the body of the sternum. Bilateral anterior rib fractures. Loss of height of the superior endplates of several thoracic and upper lumbar vertebral bodies. Clinical correlation. These are age indeterminate. Prior open reduction internal fixation of the proximal left femoral fracture with side plate and screws. CT abdomen and pelvis: Liver grossly preserved. High attenuation material layering in the gallbladder which may be secondary to calculi or vicarious excretion of previously administered intravenous contrast. Pancreas and spleen are grossly preserved. Mild nodular thickening of the adrenal glands. 1.3 centimeter low-attenuation lesion in the left kidney demonstrating a Hounsfield unit attenuation of 5 suggestive for a cyst. Mild fullness of the bilateral renal collecting systems and ureters. Markedly limited evaluation of the bowel without oral or intravenous contrast. Suggestion of a prior Billroth 2 procedure. Fluid-filled dilatation of small bowel and proximal colon. Fluid in the descending colon without a sharp transition zone. Underdistended and or mildly thickened transverse and descending colon. Portions of the transverse colon were not well visualized. Clinical correlation. Appendix not well visualized. Shotty para-aortic and mesenteric lymph nodes. Urinary bladder is distended despite the presence of a Griffith catheter. Clinical correlation. Prior left femoral gamma nail placement. Degenerative changes in the osseous structures. Loss of height of several thoracic and lumbar vertebral bodies, age indeterminate. Clinical correlation. Comminuted fracture deformity of the right greater trochanter. Atherosclerotic calcification and plaque within the aorta. Impression: CT chest: Bilateral anterior rib and sternal fractures. Coronary artery disease. Nonspecific bilateral airspace disease. Clinical correlation. CT abdomen and pelvis: Distended bowel suggesting an ileus. Markedly limited evaluation of the bowel without oral or intravenous contrast. Suggestion of a prior Billroth 2 procedure. Fluid-filled dilatation of small bowel and proximal colon. Fluid in the descending colon without a sharp transition zone. Underdistended and or mildly thickened transverse and descending colon. Portions of the transverse colon were not well visualized. Clinical correlation. Distended urinary bladder with a Griffith catheter in place. Clinical correlation. Additional findings as above. These findings were preliminarily reported at 6:29 a.m. on 06/11/[address] Varun Daniel from [facility].
[2018-06-11] MEDS: Sucralfate 1 gm/10 ml Oral Susp UD PO SCH ×2 (17:02→21:22)
[2018-06-11 17:37] LABS: INR 1.4
--- NOTE | 2018-06-11 17:51 | CP.PCM.PN ---
Subjective - Date & Time of Evaluation Date of Evaluation: 06/11/18 Time of Evaluation: 03:00 - Subjective Subjective: S/P EGD for control of bleeding. Please see the reports for details. No stigmata of advanced liver disease noted on this exam. Monitor for signs of active GI bleeding. Discussed with the ICU attending and pt's sister. Will follow Objective - Vital Signs/Intake and Output Vital Signs (last 24 hours): Temp Pulse Resp BP Pulse Ox 98.2 F 97 H 26 H 92/56 L 100 06/11/18 16:00 06/11/18 17:01 06/11/18 17:01 06/11/18 17:03 06/11/18 17:01 Intake and Output: 06/11/18 06/11/18 06:59 18:59 Intake Total 1116.00 1868.4 Output Total 3085 1100 Balance -1969.00 768.4 - Medications Medications: Current Medications Norepinephrine Bitartrate 4 mg (/ Sodium Chloride) 254 mls @ 15.24 mls/hr IV .[id number] PRN; Protocol; 4 MCG/MIN PRN Reason: TITRATE PER MD ORDER Last Titration: 06/11/18 17:31 Dose: 4 mcg/min, 15.24 mls/hr Piperacillin Sod/Tazobactam Sod (Zosyn 3.375 Gm Iv Premix) 3.375 gm in 50 mls @ 100 mls/hr IVPB Q6H MAYANK PRN Reason: Protocol Last Admin: 06/11/18 14:47 Dose: 100 mls/hr Pantoprazole Sodium 80 mg/ (Sodium Chloride) 100 mls @ 10 mls/hr IVPB .Q10H MAYANK PRN Reason: 8 MG/HR Last Admin: 06/11/18 13:53 Dose: 10 mls/hr Levetiracetam 500 mg/ Dextrose 105 mls @ 420 mls/hr IVPB Q12H MAYANK Last Admin: 06/11/18 10:20 Dose: 420 mls/hr Sucralfate (Carafate Oral Susp) 1 gm PO QID MAYANK Last Admin: 06/11/18 17:02 Dose: Not Given - Labs Labs: 06/11/18 12:41 06/11/18 12:41 PT 15.5 SECONDS (9.7-12.2) H 06/10/18 23:37 INR 1.4 06/10/18 23:37 APTT 40 SECONDS (21-34) H 06/10/18 23:37 - GI/Abdominal Exam GI & Abdominal Exam: Soft. absent: Distended, Firm, Rigid, Mass, Pulsatile Mass Assessment and Plan - Assessment and Plan (Free Text) Plan: NPO except medications today. Continue Protonix infusion, add liquid carafate, 1 gm via NGT qid.
[2018-06-11] MEDS ORDERED: Simethicone 40 mg/0.6 ml Liquid (30 ml) PO SCH (18:00)
[2018-06-11 18:42] LABS: BLOOD UREA NITROGEN 22 mg/dL (9-20); CALCIUM 7.1 mg/dl (8.6-10.4); GFR NON-AFRICAN AMERICAN > 60
[2018-06-11 20:43] LABS: OSMOLALITY,URINE 359 mosm/kg (300-1000)
--- NOTE | 2018-06-11 23:41 | CP.PCM.CON ---
History of Present Illness - History of Present Illness History of Present Illness: History taken from medical record and sister who is at bedside as patient currently intubated; 52 yo M w/ PMH of seizures, COPD, hiatal hernia and ETOH abuse, presented s/p cardiac arrest on the field; nephrology being consulted for severe hyponatremia; EMS called by family after he was found to have difficulty breathing and low BP ; found to be in PEA by EMS and ACLS protocol initiated with ROSC after 1 amp epi; intubated on the field; presented to ED again in cardiac arrest, ACLS protocol again initiated with ROSC after 1 amp epi; patient given 3L NS bolus and admitted to ICU; Review of Systems - Review of Systems Systems not reviewed;Unavailable: Intubated Past Patient History - Infectious Disease Hx of Infectious Diseases: None - Past Medical History & Family History Past Medical History?: Yes Pertinent Family History: family history not pertinent - Past Social History Smoking Status: Light Smoker < 10 Cigarettes Daily - CARDIAC Hx Hypertension: No - PULMONARY Hx Chronic Obstructive Pulmonary Disease (COPD): Yes - NEUROLOGICAL Hx Seizures: Yes - HEENT Hx HEENT Problems: Yes Other/Comment: hearing loss - RENAL Hx Chronic Kidney Disease: No - ENDOCRINE/METABOLIC Hx Endocrine Disorders: No - HEMATOLOGICAL/ONCOLOGICAL Hx Human Immunodeficiency Virus (HIV): No - INTEGUMENTARY Hx Dermatological Problems: No - MUSCULOSKELETAL/RHEUMATOLOGICAL Hx Back Pain: Yes Hx Falls: Yes Other/Comment: scoliosis - GASTROINTESTINAL HX Swallowing Problems: Yes Hx Ulcer: Yes Other/Comment: removal of portion of intestines - GENITOURINARY/GYNECOLOGICAL Hx Sexually Transmitted Disorders: No - PSYCHIATRIC Hx Substance Use: No - SURGICAL HISTORY Hx Surgeries: Yes Hx Herniorrhaphy: Yes Other/Comment: Endoscopy 08/11/16. - ANESTHESIA Hx Anesthesia: Yes Hx Anesthesia Reactions: No Meds Allergies/Adverse Reactions: Allergies Allergy/AdvReac Type Severity Reaction Status Date / Time No Known Allergies Allergy Verified 06/10/18 23:18 - Medications Medications: Current Medications Norepinephrine Bitartrate 4 mg (/ Sodium Chloride) 254 mls @ 15.24 mls/hr IV .[id number] PRN; Protocol; 4 MCG/MIN PRN Reason: TITRATE PER MD ORDER Last Titration: 06/11/18 19:09 Dose: 6 mcg/min, 22.86 mls/hr Piperacillin Sod/Tazobactam Sod (Zosyn 3.375 Gm Iv Premix) 3.375 gm in 50 mls @ 100 mls/hr IVPB Q6H [facility] PRN Reason: Protocol Last Admin: 06/11/18 19:55 Dose: 100 mls/hr Pantoprazole Sodium 80 mg/ (Sodium Chloride) 100 mls @ 10 mls/hr IVPB .Q10H [facility] PRN Reason: 8 MG/HR Last Admin: 06/11/18 23:02 Dose: 10 mls/hr Levetiracetam 500 mg/ Dextrose 105 mls @ 420 mls/hr IVPB Q12H [facility] Last Admin: 06/11/18 18:58 Dose: 420 mls/hr Sucralfate (Carafate Oral Susp) 1 gm PO QID [facility] Last Admin: 06/11/18 21:22 Dose: Not Given Physical Exam - Constitutional Appears: Non-toxic, No Acute Distress - Eye Exam Eye Exam: absent: Scleral icterus - ENT Exam ENT Exam: Mucous Membranes Moist - Respiratory Exam Respiratory Exam: Clear to Auscultation Bilateral. absent: Respiratory Distress - Cardiovascular Exam Cardiovascular Exam: RRR, +S1, +S2 - GI/Abdominal Exam GI & Abdominal Exam: Soft. absent: Distended - Exam Exam: absent: Bladder Distension Additional comments: woodruff in place - Extremities Exam Additional comments: no leg edema; - Neurological Exam Additional comments: sedated - Psychiatric Exam Additional comments: unable to assess due to sedation; - Skin Skin Exam: Normal Color, Warm Results - Vital Signs Recent Vital Signs: Last Vital Signs Temp 100.3 F H 06/11/18 20:00 Pulse 96 H 06/11/18 23:02 Resp 22 06/11/18 23:02 BP 115/68 06/11/18 23:03 Pulse Ox 100 06/11/18 23:02 - Labs Result Diagrams: 06/11/18 12:41 06/11/18 17:20 Labs: Laboratory Results - last 24 hr 06/10/18 06/10/18 06/10/18 23:37 23:37 23:37 WBC 16.5 H D RBC 2.36 L Hgb 7.7 L Hct 22.7 L MCV 96.1 H D MCH 32.5 H MCHC 33.8 RDW 15.0 H Plt Count 180 D MPV 8.3 Neut % (Auto) 69.8 Lymph % (Auto) 18.5 L [place] % (Auto) 10.9 H Eos % (Auto) 0.5 Baso % (Auto) 0.3 Neut # (Auto) 11.5 H Lymph # (Auto) 3.0 [place] # (Auto) 1.8 H Eos # (Auto) 0.1 Baso # (Auto) 0.1 Neutrophils % (Manual) Band Neutrophils % Lymphocytes % (Manual) Monocytes % (Manual) Nucleated RBC % Platelet Estimate Polychromasia Hypochromasia (manual) Poikilocytosis (manual Basophilic Stippling Anisocytosis (manual) Ovalocytes Tra Cells PT 15.5 H INR 1.4 APTT 40 H Puncture Site pCO2 pO2 HCO3 ABG pH ABG Total CO2 ABG O2 Saturation ABG Base Excess Bob Test ABG Potassium A-a O2 Difference Respiratory Index Glucose Lactate Vent Mode Mechanical Rate FiO2 Tidal Volume PEEP Crit Value Called To Crit Value Called By Crit Value Read Back Blood Gas Notified Time Sodium 109 L* Potassium 3.3 L Chloride 71 L D Carbon Dioxide 13 L Anion Gap 28 H BUN 9 Creatinine 1.0 Est GFR ( Amer) > 60 Est GFR (Non-Af Amer) > 60 Random Glucose 176 H Calcium 7.7 L Phosphorus Magnesium Total Bilirubin 0.7 AST 45 ALT 31 Alkaline Phosphatase 75 Troponin I NT-Pro-B Natriuret Pep Total Protein 4.8 L Albumin 2.4 L D Globulin 2.4 Albumin/Globulin Ratio 1.0 TSH 3rd Generation Cortisol AM Sample Arterial Blood Potassium Urine Color Urine Clarity Urine pH Ur Specific [place] Urine Protein Urine Glucose (UA) Urine Ketones Urine Blood Urine Nitrate Urine Bilirubin Urine Urobilinogen Ur Leukocyte Esterase Urine WBC (Auto) Urine RBC (Auto) Ur Squamous Epith Cells Urine Bacteria Hyaline Casts Urine Osmolality Ur Random Creatinine Ur Random Sodium Stool Occult Blood Alcohol, Quantitative Blood Type Antibody Screen 06/10/18 06/10/18 06/11/18 23:37 23:55 00:07 WBC RBC Hgb Hct MCV MCH MCHC RDW Plt Count MPV Neut % (Auto) Lymph % (Auto) [place] % (Auto) Eos % (Auto) Baso % (Auto) Neut # (Auto) Lymph # (Auto) [place] # (Auto) Eos # (Auto) Baso # (Auto) Neutrophils % (Manual) Band Neutrophils % Lymphocytes % (Manual) Monocytes % (Manual) Nucleated RBC % Platelet Estimate Polychromasia Hypochromasia (manual) Poikilocytosis (manual Basophilic Stippling Anisocytosis (manual) Ovalocytes [place] Cells PT INR APTT Puncture Site Rfem pCO2 28 L pO2 458 H HCO3 15.6 L ABG pH 7.28 L ABG Total CO2 14.1 L ABG O2 Saturation 99.7 H ABG Base Excess -12.0 L Bob Test Na ABG Potassium 3.2 L A-a O2 Difference 220.0 Respiratory Index 0.5 Glucose 164 H Lactate 7.7 H* Vent Mode Prvc Mechanical Rate 20 FiO2 100.0 Tidal Volume 500 PEEP 5 Crit Value Called To Dr. meehan Crit Value Called By Alejandra offal roller Crit Value Read Back Y Blood Gas Notified Time 0 Sodium 106.0 L* Potassium Chloride 77.0 L Carbon Dioxide Anion Gap BUN Creatinine Est GFR ( Amer) Est GFR (Non-Af Amer) Random Glucose Calcium Phosphorus Magnesium Total Bilirubin AST ALT Alkaline Phosphatase Troponin I 0.0380 NT-Pro-B Natriuret Pep 3480 H Total Protein Albumin Globulin Albumin/Globulin Ratio TSH 3rd Generation Cortisol AM Sample Arterial Blood Potassium 3.2 L Urine Color Urine Clarity Urine pH Ur Specific [place] Urine Protein Urine Glucose (UA) Urine Ketones Urine Blood Urine Nitrate Urine Bilirubin Urine Urobilinogen Ur Leukocyte Esterase Urine WBC (Auto) Urine RBC (Auto) Ur Squamous Epith Cells Urine Bacteria Hyaline Casts Urine Osmolality Ur Random Creatinine Ur Random Sodium Stool Occult Blood Alcohol, Quantitative < 10 Blood Type Antibody Screen 06/11/18 06/11/18 06/11/18 00:39 00:45 03:20 WBC RBC Hgb Hct MCV MCH MCHC RDW Plt Count MPV Neut % (Auto) Lymph % (Auto) [place] % (Auto) Eos % (Auto) Baso % (Auto) Neut # (Auto) Lymph # (Auto) [place] # (Auto) Eos # (Auto) Baso # (Auto) Neutrophils % (Manual) Band Neutrophils % Lymphocytes % (Manual) Monocytes % (Manual) Nucleated RBC % Platelet Estimate Polychromasia Hypochromasia (manual) Poikilocytosis (manual Basophilic Stippling Anisocytosis (manual) Ovalocytes Tra Cells PT INR APTT Puncture Site pCO2 pO2 HCO3 ABG pH ABG Total CO2 ABG O2 Saturation ABG Base Excess Bob Test ABG Potassium A-a O2 Difference Respiratory Index Glucose Lactate Vent Mode Mechanical Rate FiO2 Tidal Volume PEEP Crit Value Called To Crit Value Called By Crit Value Read Back Blood Gas Notified Time Sodium Potassium Chloride Carbon Dioxide Anion Gap BUN Creatinine Est GFR ( Amer) Est GFR (Non-Af Amer) Random Glucose Calcium Phosphorus Magnesium Total Bilirubin AST ALT Alkaline Phosphatase Troponin I NT-Pro-B Natriuret Pep Total Protein Albumin Globulin Albumin/Globulin Ratio TSH 3rd Generation Cortisol AM Sample Arterial Blood Potassium Urine Color Yellow Urine Clarity Hazy Urine pH 7.0 Ur Specific [place] 1.008 Urine Protein 2+ H Urine Glucose (UA) 1+ H Urine Ketones Trace Urine Blood Negative Urine Nitrate Negative Urine Bilirubin Negative Urine Urobilinogen Normal Ur Leukocyte Esterase 1+ H Urine WBC (Auto) 15 H Urine RBC (Auto) 1 Ur Squamous Epith Cells 3 Urine Bacteria Rare Hyaline Casts 6-10 H Urine Osmolality Ur Random Creatinine Ur Random Sodium Stool Occult Blood Positive H Alcohol, Quantitative Blood Type A POSITIVE Antibody Screen Negative 06/11/18 06/11/18 06/11/18 03:20 03:20 05:15 WBC 13.2 H RBC 2.28 L Hgb 7.4 L Hct 21.0 L MCV 92.3 D MCH 32.5 H MCHC 35.3 RDW 15.3 H Plt Count 141 MPV 7.5 Neut % (Auto) 85.6 H Lymph % (Auto) 3.5 L [place] % (Auto) 10.7 H Eos % (Auto) 0.1 Baso % (Auto) 0.1 Neut # (Auto) 11.3 H Lymph # (Auto) 0.5 L [place] # (Auto) 1.4 H Eos # (Auto) 0.0 Baso # (Auto) 0.0 Neutrophils % (Manual) 86 H Band Neutrophils % 2 Lymphocytes % (Manual) 3 L Monocytes % (Manual) 9 Nucleated RBC % Platelet Estimate Normal Polychromasia Hypochromasia (manual) Poikilocytosis (manual Basophilic Stippling Anisocytosis (manual) Ovalocytes Tra Cells PT INR APTT Puncture Site Rb pCO2 26 L pO2 231 H HCO3 20.8 L ABG pH 7.43 ABG Total CO2 18.1 L ABG O2 Saturation 100.3 H ABG Base Excess -5.4 L Bob Test Na ABG Potassium 3.2 L A-a O2 Difference 93.0 Respiratory Index 0.4 Glucose 152 H Lactate 1.1 Vent Mode Prvc Mechanical Rate 20 FiO2 50.0 Tidal Volume 450 PEEP 5 Crit Value Called To Berhane soria Crit Value Called By Alejandra offal roller Crit Value Read Back Y Blood Gas Notified Time 532 Sodium 115 L* 116.0 L* Potassium 2.4 L* D Chloride 84 L 90.0 L Carbon Dioxide 20 L Anion Gap 13 BUN 12 Creatinine 0.7 L Est GFR ( Amer) > 60 Est GFR (Non-Af Amer) > 60 Random Glucose 141 H Calcium 6.9 L Phosphorus 3.7 Magnesium 1.2 L Total Bilirubin 0.6 AST 72 H D ALT 56 Alkaline Phosphatase 83 Troponin I NT-Pro-B Natriuret Pep Total Protein 4.9 L Albumin 2.5 L Globulin 2.3 Albumin/Globulin Ratio 1.1 TSH 3rd Generation Cortisol AM Sample Arterial Blood Potassium 3.2 L Urine Color Urine Clarity Urine pH Ur Specific [place] Urine Protein Urine Glucose (UA) Urine Ketones Urine Blood Urine Nitrate Urine Bilirubin Urine Urobilinogen Ur Leukocyte Esterase Urine WBC (Auto) Urine RBC (Auto) Ur Squamous Epith Cells Urine Bacteria Hyaline Casts Urine Osmolality Ur Random Creatinine Ur Random Sodium Stool Occult Blood Alcohol, Quantitative Blood Type Antibody Screen 06/11/18 06/11/18 06/11/18 08:27 08:27 08:27 WBC RBC Hgb Hct MCV MCH MCHC RDW Plt Count MPV Neut % (Auto) Lymph % (Auto) [place] % (Auto) Eos % (Auto) Baso % (Auto) Neut # (Auto) Lymph # (Auto) [place] # (Auto) Eos # (Auto) Baso # (Auto) Neutrophils % (Manual) Band Neutrophils % Lymphocytes % (Manual) Monocytes % (Manual) Nucleated RBC % Platelet Estimate Polychromasia Hypochromasia (manual) Poikilocytosis (manual Basophilic Stippling Anisocytosis (manual) Ovalocytes [place] Cells PT INR APTT Puncture Site pCO2 pO2 HCO3 ABG pH ABG Total CO2 ABG O2 Saturation ABG Base Excess Bob Test ABG Potassium A-a O2 Difference Respiratory Index Glucose Lactate Vent Mode Mechanical Rate FiO2 Tidal Volume PEEP Crit Value Called To Crit Value Called By Crit Value Read Back Blood Gas Notified Time Sodium Potassium Chloride Carbon Dioxide Anion Gap BUN Creatinine Est GFR ( Amer) Est GFR (Non-Af Amer) Random Glucose Calcium Phosphorus Magnesium Total Bilirubin AST ALT Alkaline Phosphatase Troponin I NT-Pro-B Natriuret Pep Total Protein Albumin Globulin Albumin/Globulin Ratio TSH 3rd Generation 2.92 Cortisol AM Sample 52.9 H Arterial Blood Potassium Urine Color Urine Clarity Urine pH Ur Specific [place] Urine Protein Urine Glucose (UA) Urine Ketones Urine Blood Urine Nitrate Urine Bilirubin Urine Urobilinogen Ur Leukocyte Esterase Urine WBC (Auto) Urine RBC (Auto) Ur Squamous Epith Cells Urine Bacteria Hyaline Casts Urine Osmolality 199 L Ur Random Creatinine 12.4 Ur Random Sodium 39 Stool Occult Blood Alcohol, Quantitative Blood Type Antibody Screen 06/11/18 06/11/18 06/11/18 12:41 12:41 17:20 WBC 10.9 H RBC 3.26 L Hgb 10.4 L D Hct 29.4 L MCV 90.3 D MCH 31.9 H MCHC 35.3 RDW 16.6 H Plt Count 110 L D MPV 8.0 Neut % (Auto) 86.1 H Lymph % (Auto) 4.8 L [place] % (Auto) 8.8 Eos % (Auto) 0.0 Baso % (Auto) 0.3 Neut # (Auto) 9.4 H Lymph # (Auto) 0.5 L [place] # (Auto) 1.0 H Eos # (Auto) 0.0 Baso # (Auto) 0.0 Neutrophils % (Manual) 79 H Band Neutrophils % 3 H Lymphocytes % (Manual) 8 L Monocytes % (Manual) 10 Nucleated RBC % 1 H Platelet Estimate Slightly decreased L Polychromasia Slight Hypochromasia (manual) Slight Poikilocytosis (manual Slight Basophilic Stippling Slight Anisocytosis (manual) Slight Ovalocytes Slight [place] Cells Slight PT INR APTT Puncture Site pCO2 pO2 HCO3 ABG pH ABG Total CO2 ABG O2 Saturation ABG Base Excess Bob Test ABG Potassium A-a O2 Difference Respiratory Index Glucose Lactate Vent Mode Mechanical Rate FiO2 Tidal Volume PEEP Crit Value Called To Crit Value Called By Crit Value Read Back Blood Gas Notified Time Sodium 118 L* 119 L* Potassium 4.0 3.3 L Chloride 90 L 93 L Carbon Dioxide 18 L 19 L Anion Gap 14 11 BUN 18 22 H Creatinine 0.7 L 0.8 Est GFR ( Amer) > 60 > 60 Est GFR (Non-Af Amer) > 60 > 60 Random Glucose 107 97 Calcium 7.4 L 7.1 L Phosphorus 2.2 L Magnesium 1.6 Total Bilirubin AST ALT Alkaline Phosphatase Troponin I NT-Pro-B Natriuret Pep Total Protein Albumin Globulin Albumin/Globulin Ratio TSH 3rd Generation Cortisol AM Sample Arterial Blood Potassium Urine Color Urine Clarity Urine pH Ur Specific [place] Urine Protein Urine Glucose (UA) Urine Ketones Urine Blood Urine Nitrate Urine Bilirubin Urine Urobilinogen Ur Leukocyte Esterase Urine WBC (Auto) Urine RBC (Auto) Ur Squamous Epith Cells Urine Bacteria Hyaline Casts Urine Osmolality Ur Random Creatinine Ur Random Sodium Stool Occult Blood Alcohol, Quantitative Blood Type Antibody Screen 06/11/18 06/11/18 17:20 20:36 WBC RBC Hgb Hct MCV MCH MCHC RDW Plt Count MPV Neut % (Auto) Lymph % (Auto) [place] % (Auto) Eos % (Auto) Baso % (Auto) Neut # (Auto) Lymph # (Auto) [place] # (Auto) Eos # (Auto) Baso # (Auto) Neutrophils % (Manual) Band Neutrophils % Lymphocytes % (Manual) Monocytes % (Manual) Nucleated RBC % Platelet Estimate Polychromasia Hypochromasia (manual) Poikilocytosis (manual Basophilic Stippling Anisocytosis (manual) Ovalocytes [place] Cells PT 15.0 H INR 1.4 APTT Puncture Site pCO2 pO2 HCO3 ABG pH ABG Total CO2 ABG O2 Saturation ABG Base Excess Bob Test ABG Potassium A-a O2 Difference Respiratory Index Glucose Lactate Vent Mode Mechanical Rate FiO2 Tidal Volume PEEP Crit Value Called To Crit Value Called By Crit Value Read Back Blood Gas Notified Time Sodium Potassium Chloride Carbon Dioxide Anion Gap BUN Creatinine Est GFR ( Amer) Est GFR (Non-Af Amer) Random Glucose Calcium Phosphorus Magnesium Total Bilirubin AST ALT Alkaline Phosphatase Troponin I NT-Pro-B Natriuret Pep Total Protein Albumin Globulin Albumin/Globulin Ratio TSH 3rd Generation Cortisol AM Sample Arterial Blood Potassium Urine Color Urine Clarity Urine pH Ur Specific [place] Urine Protein Urine Glucose (UA) Urine Ketones Urine Blood Urine Nitrate Urine Bilirubin Urine Urobilinogen Ur Leukocyte Esterase Urine WBC (Auto) Urine RBC (Auto) Ur Squamous Epith Cells Urine Bacteria Hyaline Casts Urine Osmolality 359 Ur Random Creatinine Ur Random Sodium 14 Stool Occult Blood Alcohol, Quantitative Blood Type Antibody Screen - Imaging and Cardiology Chest x-ray Status: Image reviewed by me Additional comment: lungs clear Assessment & Plan (1) Hyponatremia Assessment and Plan: Severe hyponatremia on presentation; urine lytes showing relatively low Ur osm but obtained after patient given ~3L volume replenishment and serum Na increased from 109 -> 115; however, in light of history of ETOH abuse and inadequate diet per family, differential diagnosis for etiology of hyponatremia is inadequate solute intake vs volume depletion; -Agree with CCM team on holding further volume administration to avoid increasing serum Na further as rate of acceptable rise over 24 hr period has already been exceeded (6-8 meq over 24 hrs and ~16 meq over 48 hrs is generally considered safe); -Giving desmopressin 2 mcg IV to increase urine osm and avoid further increase in serum Na today; Status: Acute (2) Cardiac arrest Assessment and Plan: In the setting of severe hypokalemia which has subsequently been corrected; patient still hypotensive, on levophed; -If volume needed, should give 1/2NS instead of NS to avoid raising serum Na abruptly; -continue to replenish K and Mag as needed (should keep K ~4.0 to prevent arrhythmia); Status: Acute (3) Hypokalemia Assessment and Plan: see above; Status: Acute
[2018-06-12] MEDS: Piperacill/Tazo 3.375gm in Dex 3.375 GM/50 ML BAG IVPB SCH ×4 (02:34→20:00)
[2018-06-12] MEDS ORDERED: Sodium Chloride 0.45% 1,000 ML IV SCH (05:15)
[2018-06-12 05:22] LABS: ABG ALLEN TEST POS; ARTERIAL BLOOD GAS HCO3 21.3 mmol/L (21-28); ARTERIAL BLOOD GAS HEMOGLOBIN 8.7 g/dL (11.7-17.4); ARTERIAL BLOOD GAS O2 SAT 97.8 % (95-98); ARTERIAL BLOOD GAS PCO2 24 mm/Hg (35-45); ARTERIAL BLOOD GAS PH 7.48 (7.35-7.45); ARTERIAL BLOOD GAS PO2 81 mm/Hg (80-100); ARTERIAL BLOOD GAS TCO2 18.6 mmol/L (22-28)
[2018-06-12 06:53] LABS: BASO % 0.2 % (0.0-2.0); EOS % 0.1 % (0.0-4.0); HEMOGLOBIN 8.5 g/dL (12.0-18.0); LYMPH # 0.7 K/uL (1.0-4.3); LYMPH % 9.2 % (20.0-40.0); MEAN CELL VOLUME 89.2 fL (80.0-94.0); MEAN CORPUSCULAR HEMOGLOBIN 31.6 pg (27.0-31.0); MEAN CORPUSCULAR HGB CONC 35.4 g/dL (33.0-37.0); MEAN PLATELET VOLUME 8.2 fL (7.2-11.7); MONO # 1.3 K/uL (0.0-0.8); NEUT % 74.5 % (50.0-75.0); PLATELET COUNT 94 K/uL (130-400); RED CELL DISTRIBUTION WIDTH 17.1 % (11.5-14.5)
[2018-06-12 07:02] LABS: ALBUMIN 2.5 g/dL (3.5-5.0); ALT/SGPT 52 U/L (21-72); AST/SGOT 65 U/L (17-59); BLOOD UREA NITROGEN 16 mg/dL (9-20); CALCIUM 7.6 mg/dl (8.6-10.4); GFR NON-AFRICAN AMERICAN > 60; HDL CHOLESTEROL 39 mg/dL (30-70); LDL CHOLESTEROL < 30 mg/dL (0-129)
--- NOTE | 2018-06-12 07:52 | CP.PCM.PN ---
Subjective - Date & Time of Evaluation Date of Evaluation: 06/12/18 Time of Evaluation: 07:50 - Subjective Subjective: Mr. Clancy was seen and examined at the bedside in ICU. He remains on mechanical ventilator on PRVC mode with plan for extubation today. He opens his eyes spontaneously with verbal stimuli, reactive to light accommodation, moves all extremities spontaneously. He has bilateral upper extremities with hand mitten for patient safety. CT scan of the head showed No acute intracranial abnormality. Chronic microvascular ischemic changes. Sinus mucosal disease was identified. There was no untoward events overnight. Objective - Vital Signs/Intake and Output Vital Signs (last 24 hours): Temp Pulse Resp BP Pulse Ox 98.7 F 99 H 23 104/63 99 06/12/18 04:00 06/12/18 05:00 06/12/18 05:00 06/12/18 05:03 06/12/18 05:00 Intake and Output: 06/12/18 06/12/18 06:59 18:59 Intake Total 458.6 Output Total 1015 Balance -556.4 - Medications Medications: Current Medications Norepinephrine Bitartrate 4 mg (/ Sodium Chloride) 254 mls @ 15.24 mls/hr IV .[id number] PRN; Protocol; 4 MCG/MIN PRN Reason: TITRATE PER MD ORDER Last Titration: 06/12/18 01:57 Dose: 4 mcg/min, 15.24 mls/hr Piperacillin Sod/Tazobactam Sod (Zosyn 3.375 Gm Iv Premix) 3.375 gm in 50 mls @ 100 mls/hr IVPB Q6H [facility] PRN Reason: Protocol Last Admin: 06/12/18 02:34 Dose: 100 mls/hr Pantoprazole Sodium 80 mg/ (Sodium Chloride) 100 mls @ 10 mls/hr IVPB .Q10H [facility] PRN Reason: 8 MG/HR Last Admin: 06/11/18 23:02 Dose: 10 mls/hr Levetiracetam 500 mg/ Dextrose 105 mls @ 420 mls/hr IVPB Q12H [facility] Last Admin: 06/12/18 06:58 Dose: 420 mls/hr Sodium Chloride (Sodium Chloride 0.45%) 1,000 mls @ 200 mls/hr IV .Q5H [facility] Stop: 06/12/18 10:14 Last Admin: 06/12/18 05:15 Dose: 200 mls/hr Sucralfate (Carafate Oral Susp) 1 gm PO QID [facility] Last Admin: 06/11/18 21:22 Dose: Not Given - Labs Labs: 06/12/18 06:22 06/12/18 06:22 PT 15.0 SECONDS (9.7-12.2) H 06/11/18 17:20 INR 1.4 06/11/18 17:20 APTT 40 SECONDS (21-34) H 06/10/18 23:37 - Constitutional Appears: No Acute Distress - Head Exam Head Exam: NORMAL INSPECTION - Eye Exam Pupil Exam: Mydriatic, PERRL Additional comments: 4 mm reactive to light accommodation. - Neurological Exam Neurological Exam: Awake Neuro motor strength exam: Left Upper Extremity: 3, Right Upper Extremity: 3, Left Lower Extremity: 3, Right Lower Extremity: 3 Additional comments: GCS-14 Assessment and Plan (1) Encephalopathy acute Assessment & Plan: Continue all current medical regimen including ventilator and blood pressure management by ICU team. Recommend EEG if mental status does not improve after extubation, treat any electrolyte and HGB abnormalities Status: Acute
[2018-06-12 09:19] LABS: BANDS 1 % (0-2); LYMPHOCYTE 12 % (20-40); MONOCYTE 16 % (0-10); NEUTROPHIL 71 % (50-75); PLATELET ESTIMATE DECREASED (NORMAL); TOTAL CELLS COUNTED 100
[2018-06-12 09:20] LABS: ANISOCYTOSIS SLIGHT; TOXIC GRANULATION PRESENT
[2018-06-12 09:21] LABS: HYPOCHROMIC SLIGHT; LARGE PLATELETS PRESENT; POLYCHROMIC SLIGHT
[2018-06-12] MEDS: Sucralfate 1 gm/10 ml Oral Susp UD PO SCH ×4 (09:51→21:42)
--- NOTE | 2018-06-12 10:11 | RAD ---
Chest x-ray single frontal view History: Intubated. Comparison: 06/11/2018 Findings: Interval removal of a nasogastric tube. Other lines and tubes are in stable position. Biapical pleural thickening with upper lobe granulomatous changes. Mild venous congestion. Nodular density at the right lung base. Tortuous ectatic aorta. Degenerative changes in the spine and shoulders. Postsurgical changes of the left proximal humerus. Gas distention of bowel loops in the upper abdomen. Impression: Interval removal of a nasogastric tube. Other lines and tubes are in stable position. Biapical pleural thickening with upper lobe granulomatous changes. Mild venous congestion. Nodular density at the right lung base. Tortuous ectatic aorta. Degenerative changes in the spine and shoulders. Postsurgical changes of the left proximal humerus. Gas distention of bowel loops in the upper abdomen.
--- NOTE | 2018-06-12 11:51 | CP.PCM.PN ---
<Meenakshi bAdalla - Last Filed: 06/12/18 11:49> Subjective - Date & Time of Evaluation Date of Evaluation: 06/12/18 Time of Evaluation: 10:30 - Subjective Subjective: GI Fellow PGY5 Consult Note Pt seen and evaluated at bedside, pt still intubated but moving around and alert /awake. Pt is off pressor support this am and BP stable. Per nursing one dark BM overnight but no further rectal bleeding reported. Hgb stable this am. ROS: A 12pt ROS was negative except as above. Objective - Vital Signs/Intake and Output Vital Signs (last 24 hours): Temp Pulse Resp BP Pulse Ox 98.6 F 94 H 27 H 118/62 100 06/12/18 08:00 06/12/18 11:03 06/12/18 11:03 06/12/18 11:03 06/12/18 11:03 Intake and Output: 06/12/18 06/12/18 06:59 18:59 Intake Total 458.6 915 Output Total 1015 400 Balance -556.4 515 - Medications Medications: Current Medications Norepinephrine Bitartrate 4 mg (/ Sodium Chloride) 254 mls @ 15.24 mls/hr IV .[id number] PRN; Protocol; 4 MCG/MIN PRN Reason: TITRATE PER MD ORDER Last Titration: 06/12/18 01:57 Dose: 4 mcg/min, 15.24 mls/hr Piperacillin Sod/Tazobactam Sod (Zosyn 3.375 Gm Iv Premix) 3.375 gm in 50 mls @ 100 mls/hr IVPB Q6H [facility] PRN Reason: Protocol Last Admin: 06/12/18 09:53 Dose: 100 mls/hr Pantoprazole Sodium 80 mg/ (Sodium Chloride) 100 mls @ 10 mls/hr IVPB .Q10H [facility] PRN Reason: 8 MG/HR Last Admin: 06/11/18 23:02 Dose: 10 mls/hr Levetiracetam 500 mg/ Dextrose 105 mls @ 420 mls/hr IVPB Q12H [facility] Last Admin: 06/12/18 06:58 Dose: 420 mls/hr Potassium Chloride (Potassium Chloride 20 Meq/100 Ml) 20 meq in 100 mls @ 50 mls/hr IVPB ONCE ONE Stop: 06/12/18 13:44 Potassium Phosphate 15 mmole/ (Dextrose) 255 mls @ 63.75 mls/hr IVPB Q4H [facility] Stop: 06/12/18 19:59 Sucralfate (Carafate Oral Susp) 1 gm PO QID [facility] Last Admin: 06/12/18 09:51 Dose: Not Given - Labs Labs: 06/12/18 06:22 06/12/18 06:22 PT 15.0 SECONDS (9.7-12.2) H 06/11/18 17:20 INR 1.4 06/11/18 17:20 APTT 40 SECONDS (21-34) H 06/10/18 23:37 - Constitutional Appears: Non-toxic, No Acute Distress, Cachectic, Chronically Ill - Head Exam Head Exam: ATRAUMATIC, NORMAL INSPECTION, NORMOCEPHALIC - Eye Exam Eye Exam: EOMI, PERRL Pupil Exam: PERRL - ENT Exam ENT Exam: Mucous Membranes Dry Additional comments: ETT - Neck Exam Neck Exam: Full ROM - Respiratory Exam Respiratory Exam: Rhonchi - Cardiovascular Exam Cardiovascular Exam: Tachycardia - GI/Abdominal Exam GI & Abdominal Exam: Soft, Normal Bowel Sounds. absent: Distended, Firm, Guarding, Rigid, Tenderness - Rectal Exam Rectal Exam: Deferred - Extremities Exam Extremities Exam: Full ROM, Normal Inspection - Neurological Exam Neurological Exam: Alert, Awake - Psychiatric Exam Psychiatric exam: Agitated - Skin Skin Exam: Dry, Intact, Normal Color, Warm Assessment and Plan - Assessment and Plan (Free Text) Assessment: This is a 52yM with a pmhx of alcohol abuse, seizure disorder with medication noncompliance, PUD with GI bleed and Bilroth II 5yrs ago at [facility] [place], COPD. Pt presenting to the ER s/p PEA cardiopulmonary arrest. GI was consulted for anemia and GI bleeding. 1) Cardiopulmonary Arrest 2) Hyponatremia 3) Hypokalemia 4) Metabolic Acidosis 5) Seizure 6) Anemia 7) GI bleeding s/p EGD with PUD and bleeding ulcers s/p clip and APC 8) Alcohol abuse 9) VDRF 10) Hx of PUD s/p bilroth Plan: -Continue supportive care -Pt in ICU intubated -Active GI bleeding resolved -Pt hemodynamically stable off pressor support -Hgb stable this am s/p 2U PRBCs -Monitor H/H and transfuse as needed -Carafate 1g qid -IV PPI drip -s/p EGD with 2 anastomotic ulcers with visible vessel s/p APC and 5 clips, one ulcer with visible vessel and adherent clot was not intervened on due to adverse location -If pt develops further bleeding will need IR and Surgery on board, difficult to treat endoscopically -Pt with significant electrolyte abnormalities being corrected by Nephrology and Hospitalist -Cardiology following s/p PEA/Asystole arrest -Discussed plan and pt's status with pt's sister at bedside this am -Will continue to follow pt closely <Bryon Rankin - Last Filed: 06/12/18 19:02> Objective - Vital Signs/Intake and Output Vital Signs (last 24 hours): Temp Pulse Resp BP Pulse Ox 98.3 F 106 H 32 H 106/58 L 100 06/12/18 16:00 06/12/18 18:03 06/12/18 18:03 06/12/18 18:03 06/12/18 18:03 Intake and Output: 06/12/18 06/13/18 18:59 06:59 Intake Total 1545 Output Total 2175 Balance -630 - Medications Medications: Current Medications Norepinephrine Bitartrate 4 mg (/ Sodium Chloride) 254 mls @ 15.24 mls/hr IV .[id number] PRN; Protocol; 4 MCG/MIN PRN Reason: TITRATE PER MD ORDER Last Titration: 06/12/18 08:00 Dose: 0 mcg/min, 0 mls/hr Piperacillin Sod/Tazobactam Sod (Zosyn 3.375 Gm Iv Premix) 3.375 gm in 50 mls @ 100 mls/hr IVPB Q6H [facility] PRN Reason: Protocol Stop: 06/14/18 02:30 Last Admin: 06/12/18 14:29 Dose: 100 mls/hr Pantoprazole Sodium 80 mg/ (Sodium Chloride) 100 mls @ 10 mls/hr IVPB .Q10H [facility] PRN Reason: 8 MG/HR Last Admin: 06/12/18 12:09 Dose: 10 mls/hr Levetiracetam 500 mg/ Dextrose 105 mls @ 420 mls/hr IVPB Q12H [facility] Last Admin: 06/12/18 18:37 Dose: 420 mls/hr Potassium Phosphate 15 mmole/ (Dextrose) 255 mls @ 63.75 mls/hr IVPB Q4H [facility] Stop: 06/12/18 19:59 Last Admin: 06/12/18 16:19 Dose: 63.75 mls/hr Sucralfate (Carafate Oral Susp) 1 gm PO QID [facility] Last Admin: 06/12/18 17:36 Dose: Not Given - Labs Labs: 06/12/18 06:22 06/12/18 13:20 PT 15.0 SECONDS (9.7-12.2) H 06/11/18 17:20 INR 1.4 06/11/18 17:20 APTT 40 SECONDS (21-34) H 06/10/18 23:37 Attending/Attestation - Attestation I have personally seen and examined this patient.: Yes I have fully participated in the care of the patient.: Yes I have reviewed all pertinent clinical information, including history, physical exam and plan: Yes Notes (Text): 06/12/18 19:00 Chart reviewed. Events noted. Discussed with Dr. Flower and pt's nurse. Extubated. Awake and alert. No melena, hematochezia, hematemesis. Latest Hgb 8.7 g/dl w/o stigmata of ongoing GI bleeding. (?equilibration) Benign abdomen on exam. Agree with the assessment and plan as outlined above.
[2018-06-12] MEDS ORDERED: Potassium Phosphate 15 MMOLE in Dextrose 5% In Water 250 ML IVPB SCH (12:00)
[2018-06-12 12:03] LABS: OSMOLALITY,URINE 298 mosm/kg (300-1000)
[2018-06-12] MEDS: Pantoprazole 80 MG in Sodium Chloride 0.9% 100 ML IVPB SCH ×3 (12:09→20:01)
[2018-06-12] MEDS: Potassium Phosphate 15 MMOLE in Dextrose 5% In Water 250 ML IVPB SCH ×2 (12:19→16:19)
[2018-06-12 13:52] LABS: BLOOD UREA NITROGEN 11 mg/dL (9-20); CALCIUM 7.6 mg/dl (8.6-10.4); GFR NON-AFRICAN AMERICAN > 60
--- NOTE | 2018-06-12 14:04 | CP.PCM.PN ---
Subjective - Date & Time of Evaluation Date of Evaluation: 06/12/18 Time of Evaluation: 14:00 - Subjective Subjective: Hospitalist Note: Patient was extubated earlier. Patient received duoneb treatment at bedside. Patient reports pain about pleuritic chest pain. Patient was seen and evaluated by GI and neurology earlier. Patient had one dark stool overnight. Objective - Vital Signs/Intake and Output Vital Signs (last 24 hours): Temp Pulse Resp BP Pulse Ox 98.3 F 106 H 35 H 133/68 96 06/12/18 12:00 06/12/18 13:03 06/12/18 13:03 06/12/18 13:03 06/12/18 13:03 Intake and Output: 06/12/18 06/12/18 06:59 18:59 Intake Total 458.6 1185 Output Total 1015 575 Balance -556.4 610 - Medications Medications: Current Medications Norepinephrine Bitartrate 4 mg (/ Sodium Chloride) 254 mls @ 15.24 mls/hr IV .[id number] PRN; Protocol; 4 MCG/MIN PRN Reason: TITRATE PER MD ORDER Last Titration: 06/12/18 08:00 Dose: 0 mcg/min, 0 mls/hr Piperacillin Sod/Tazobactam Sod (Zosyn 3.375 Gm Iv Premix) 3.375 gm in 50 mls @ 100 mls/hr IVPB Q6H [facility] PRN Reason: Protocol Last Admin: 06/12/18 09:53 Dose: 100 mls/hr Pantoprazole Sodium 80 mg/ (Sodium Chloride) 100 mls @ 10 mls/hr IVPB .Q10H [facility] PRN Reason: 8 MG/HR Last Admin: 06/12/18 12:09 Dose: 10 mls/hr Levetiracetam 500 mg/ Dextrose 105 mls @ 420 mls/hr IVPB Q12H [facility] Last Admin: 06/12/18 06:58 Dose: 420 mls/hr Potassium Phosphate 15 mmole/ (Dextrose) 255 mls @ 63.75 mls/hr IVPB Q4H [facility] Stop: 06/12/18 19:59 Last Admin: 06/12/18 12:19 Dose: 63.75 mls/hr Ibuprofen 400 mg/ Sodium (Chloride) 104 mls @ 104 mls/hr IVPB Q6 PRN PRN Reason: Pain, moderate (4-7) Last Admin: 06/12/18 12:19 Dose: 104 mls/hr Sucralfate (Carafate Oral Susp) 1 gm PO QID [facility] Last Admin: 06/12/18 09:51 Dose: Not Given - Labs Labs: 06/12/18 06:22 06/12/18 13:20 PT 15.0 SECONDS (9.7-12.2) H 06/11/18 17:20 INR 1.4 06/11/18 17:20 APTT 40 SECONDS (21-34) H 06/10/18 23:37 - Constitutional Appears: Agitated, Cachectic, Chronically Ill - Head Exam Head Exam: NORMAL INSPECTION - Eye Exam Eye Exam: EOMI - ENT Exam ENT Exam: Mucous Membranes Dry - Respiratory Exam Respiratory Exam: Decreased Breath Sounds, Rales, Respiratory Distress - Cardiovascular Exam Cardiovascular Exam: REGULAR RHYTHM, +S1, +S2 - GI/Abdominal Exam GI & Abdominal Exam: Soft. absent: Distended, Firm, Guarding, Rigid, Normal Bowel Sounds, Rebound - Extremities Exam Extremities Exam: absent: Pedal Edema, Tenderness Additional comments: poor nail hygiene - Neurological Exam Neurological Exam: Alert, Awake Additional comments: confused - Psychiatric Exam Psychiatric exam: Agitated, Anxious - Skin Skin Exam: Normal Color, Pallor, Warm Assessment and Plan - Assessment and Plan (Free Text) Assessment: 1). Cardiopulmonary Arrest Assessment/Plan * off Levophed Drip * Cardiology Dr. Iglesias publication manager-->help appreciated * PEA s/p ROSC NSR * pending Echocardiogram and cardiac 2). Hyponatremia Assessment/Plan * Nephrology Dr. Shafer on board-->help appreciated * Secondary to Alcohol Abuse * Received 3 NS boluses in ER * Improving. Today 125 from 119. * Seizure precautions 3). Hypokalemia/Hypomagnesemia Assessment/Plan * Being repleted by ICU 4). Metabolic Acidosis Assessment/Plan * Likely secondary to the Cadriopulmonary Arrest and GI bleed * Improving 5). Seizure Assessment/Plan * Neurology Dr. Richie Rubi on board-->help appreciated * Risk factor: heavy alcohol use and hyponatremia, hypomagnesium * Head CT (06/11/18): no acute intracranial abnormality. Chronic microvascular ischemic changes. sinus mucosal disease as above * He has a history of alcohol withdrawl seizures * Keppra 500 mg IV Q12H * Neurology Dr. Richie Rubi * Recommend EEG if mental status does not improve post extubation 6). Anemia likely secondary to GI Bleed History of Peptic Ulcer Disease Bleeding Ulcer Assessment/Plan * GI Dr. Ho on consult help appreciated * CT Chest/abdomen/pelvis (06/12/18): distended bowel suggesting an ileus. Markedly limited evaluation of the bowel without oral or intravenous contrast. Suggestion of prior Bilroth 2 procedure. Fluid filled dilatation of small bowel andproximal colon. Fluid filled dilatation of the small bowel and prozimal colon. Fluid in the descending colon without a sharp transition sozne. Portions of trasnverse colon were not well visualized. * NPO except medications today. Continue Protonix infusion, add liquid carafate , 1 gm via NGT qid. * Hgb stable this am s/p 2U PRBCs * Monitor H/H and transfuse as needed * Carafate 1g qid * IV PPI drip * s/p EGD with 2 anastomotic ulcers with visible vessel s/p APC and 5 clips, one ulcer with visible vessel and adherent clot was not intervened on due to adverse location * If pt develops further bleeding will need IR and Surgery on board, difficult to treat endoscopically * Monitor H/H * No Nsaids and strong history of alcohol 7). Hypocalcemia Assessment/Plan * Monitor 8). Acute Respiratory Failure Assessment/Plan * Extubated 06/12/18 * management per ICU * Patient to be placed on Bipap 9) Open Wounds on Sacrum Assessment/Plan * Turn [id number] * Wound care pending evaluation 10) Bilateral Anterior Rib and Sternal Fractures Assessment/Plan * noted on CT Chest * Secondary to CPR given cardiopulmonary arrest 11) Pneumonia Assessment/Plan * CT Chest 06/11/18: thinned walled cavity in the right upper lobe which may be the sequelae of prior infection 5mm subpleural nodule within the anterior right middle lobe. Focal consolidation within the inferior right middle lobe. Focal consolidation within the right lower love. Pacthy ground glass opacities in both lungs which and nonspecific but may secondary to alectasis versus contusion versus pneumonitis. * Zosyn 3.375g IV Q8H (active since 06/11/18) 12) Prophylactic measure * Protonix drip * Chemical anticoagulation held secondary to GI bleed * Turn [id number] * Aspiration precautions * Seizure precautions
--- NOTE | 2018-06-12 16:21 | CP.PCM.PN ---
Subjective - Date & Time of Evaluation Date of Evaluation: 06/12/18 Time of Evaluation: 16:21 - Subjective Subjective: the Objective - Vital Signs/Intake and Output Vital Signs (last 24 hours): Temp Pulse Resp BP Pulse Ox 98.3 F 113 H 27 H 125/65 100 06/12/18 16:00 06/12/18 16:03 06/12/18 16:03 06/12/18 16:03 06/12/18 16:03 Intake and Output: 06/12/18 06/12/18 11:59 23:59 Intake Total 1155.6 486 Output Total 1040 1075 Balance 115.6 -589 - Medications Medications: Current Medications Norepinephrine Bitartrate 4 mg (/ Sodium Chloride) 254 mls @ 15.24 mls/hr IV .[id number] PRN; Protocol; 4 MCG/MIN PRN Reason: TITRATE PER MD ORDER Last Titration: 06/12/18 08:00 Dose: 0 mcg/min, 0 mls/hr Piperacillin Sod/Tazobactam Sod (Zosyn 3.375 Gm Iv Premix) 3.375 gm in 50 mls @ 100 mls/hr IVPB Q6H [facility] PRN Reason: Protocol Last Admin: 06/12/18 14:29 Dose: 100 mls/hr Pantoprazole Sodium 80 mg/ (Sodium Chloride) 100 mls @ 10 mls/hr IVPB .Q10H [facility] PRN Reason: 8 MG/HR Last Admin: 06/12/18 12:09 Dose: 10 mls/hr Levetiracetam 500 mg/ Dextrose 105 mls @ 420 mls/hr IVPB Q12H [facility] Last Admin: 06/12/18 06:58 Dose: 420 mls/hr Potassium Phosphate 15 mmole/ (Dextrose) 255 mls @ 63.75 mls/hr IVPB Q4H [facility] Stop: 06/12/18 19:59 Last Admin: 06/12/18 16:19 Dose: 63.75 mls/hr Sucralfate (Carafate Oral Susp) 1 gm PO QID [facility] Last Admin: 06/12/18 14:27 Dose: Not Given - Labs Labs: 06/12/18 06:22 06/12/18 13:20 PT 15.0 SECONDS (9.7-12.2) H 06/11/18 17:20 INR 1.4 06/11/18 17:20 APTT 40 SECONDS (21-34) H 06/10/18 23:37
--- NOTE | 2018-06-12 17:37 | CP.CCUPN ---
CCU Subjective - Physician Review Events Since Last Encounter (Free Text): 06/12/18 17:33 patient more alert today, decided to extubate. CCU Objective - Vital Signs / Intake & Output Vital Signs (Last 4 hours): Vital Signs Temp Pulse Resp BP Pulse Ox 06/12/18 17:03 94 H 26 H 116/55 L 96 06/12/18 17:00 82 24 100 06/12/18 16:03 113 H 27 H 125/65 100 06/12/18 16:00 98.3 F 112 H 31 H 100 06/12/18 15:35 83 06/12/18 15:03 79 22 136/62 100 06/12/18 15:00 105 H 30 H 100 06/12/18 14:31 103 H 100 06/12/18 14:29 127/69 06/12/18 14:03 108 H 35 H 127/69 100 06/12/18 14:00 102 H 29 H 100 Intake and Output (Last 8hrs): Intake & Output 06/12/18 06/12/18 06/12/18 06:59 14:59 22:59 Intake Total 273.4 1257 216 Output Total 551 043 8385 Balance -341.6 382 -834 Weight 116 lb 6 oz Intake: IV 0 0 Intake, IV Amount 273.4 1257 216 LEFT IJ DISTAL PORT 1112 186 LEFT IJ MEDIAL PORT 50 80 30 LEFT IJ PROXIMAL PORT 143.4 65 Left Antecubital 80 Left Forearm 0 0 Output: Urine [phone] Urethral ([place]) [phone] Other: # Bowel Movements 1 - Physical Exam Head: Positive for: Atraumatic, Normocephalic Pupils: Positive for: PERRL Extroacular Muscles: Positive for: EOMI Conjunctiva: Positive for: Normal Mouth: Positive for: Moist Mucous Membranes Nose (Internal): Positive for: Normal Inspection Neck: Positive for: Normal Range of Motion Respiratory/Chest: Positive for: Clear to Auscultation Cardiovascular: Positive for: Regular Rate and Rhythm, Normal S1, S2 Abdomen: Positive for: Normal Bowel Sounds. Negative for: Tenderness, Distention Upper Extremity: Positive for: Normal Inspection Lower Extremity: Positive for: Normal Inspection Neurological: Positive for: GCS=15, CN II-XII Intact Psychiatric: Positive for: Alert, Oriented x 3 - Medications Active Medications: Active Medications Generic Name Dose Route Start Last Admin Trade Name Freq PRN Reason Stop Dose Admin Norepinephrine Bitartrate 4 mg 254 mls @ 15.24 mls/hr 06/11/18 00:01 08:00 / Sodium Chloride IV 0 mcg/min .[id number] PRN 0 mls/hr TITRATE PER MD ORDER Titration Protocol 4 MCG/MIN Piperacillin Sod/Tazobactam Sod 3.375 gm in 50 mls @ 100 mls/hr 06/11/18 02: 30 06/12/18 14:29 Zosyn 3.375 Gm Iv Premix IVPB 100 mls/hr Q6H MAYANK Administration Protocol Pantoprazole Sodium 80 mg/ 100 mls @ 10 mls/hr 06/11/18 13:15 06/12/18 12:09 Sodium Chloride IVPB 10 mls/hr .Q10H MAYANK Administration 8 MG/HR Levetiracetam 500 mg/ Dextrose 105 mls @ 420 mls/hr 06/11/18 07:30 06/12/18 06:58 IVPB 420 mls/hr Q12H MAYANK Administration Potassium Phosphate 15 mmole/ 255 mls @ 63.75 mls/hr 06/12/18 12:00 06/12/18 16:19 Dextrose IVPB 06/12/18 19:59 63.75 mls/hr Q4H MAYANK Administration Sucralfate 1 gm 06/11/18 18:00 06/12/18 14:27 Carafate Oral Susp PO Not Given QID MAYANK - Patient Studies Lab Studies: Microbiology Studies 06/11/18 17:15 Blood Culture - Preliminary Blood-Venous NO GROWTH AFTER 24 HOURS 06/11/18 17:00 Blood Culture - Preliminary Blood-Venous NO GROWTH AFTER 24 HOURS 06/11/18 03:20 MRSA Culture (Admit) - Final Nose MRSA NOT DETECTED 06/11/18 Unknown Urine Culture - Preliminary Urine,Catheterized Gram Negative Brian Lab Studies 06/12/18 06/12/18 06/12/18 Range/Units 13:20 11:56 06:22 WBC 8.0 (4.8-10.8) K/uL RBC 2.70 L (4.40-5.90) Mil/uL Hgb 8.5 L (12.0-18.0) g/dL Hct 24.1 L (35.0-51.0) % MCV 89.2 (80.0-94.0) fL MCH 31.6 H (27.0-31.0) pg MCHC 35.4 (33.0-37.0) g/dL RDW 17.1 H (11.5-14.5) % Plt Count 94 L (130-400) K/uL MPV 8.2 (7.2-11.7) fL Neut % (Auto) 74.5 (50.0-75.0) % Lymph % (Auto) 9.2 L (20.0-40.0) % [place] % (Auto) 16.0 H (0.0-10.0) % Eos % (Auto) 0.1 (0.0-4.0) % Baso % (Auto) 0.2 (0.0-2.0) % Neut # (Auto) 6.0 (1.8-7.0) K/uL Lymph # (Auto) 0.7 L (1.0-4.3) K/uL [place] # (Auto) 1.3 H (0.0-0.8) K/uL Eos # (Auto) 0.0 (0.0-0.7) K/uL Baso # (Auto) 0.0 (0.0-0.2) K/uL Neutrophils % (Manual) 71 (50-75) % Band Neutrophils % 1 (0-2) % Lymphocytes % (Manual) 12 L (20-40) % Monocytes % (Manual) 16 H (0-10) % Toxic Granulation Present Platelet Estimate Decreased L (NORMAL) Large Platelets Present Polychromasia Slight Hypochromasia (manual) Slight Anisocytosis (manual) Slight PT (9.7-12.2) SECONDS INR Puncture Site pCO2 (35-45) mm/Hg pO2 (80-100) mm/Hg HCO3 (21-28) mmol/L ABG pH (7.35-7.45) ABG Total CO2 (22-28) mmol/L ABG O2 Saturation (95-98) % ABG Base Excess (-2.0-3.0) mmol/L ABG Hemoglobin (11.7-17.4) g/dL ABG Carboxyhemoglobin (0.5-1.5) % POC ABG HHb (Measured) (0.0-5.0) % ABG Methemoglobin (0.0-3.0) % Bob Test A-a O2 Difference mm/Hg Respiratory Index Hgb O2 Saturation (95.0-98.0) % Vent Mode Mechanical Rate FiO2 % Tidal Volume PEEP Sodium 125 L (132-148) mmol/L Potassium 3.0 L (3.6-5.2) mmol/L Chloride 97 L (98-107) mmol/L Carbon Dioxide 21 L (22-30) mmol/L Anion Gap 10 (10-20) BUN 11 (9-20) mg/dL Creatinine 0.7 L (0.8-1.5) mg/dL Est GFR ( Amer) > 60 Est GFR (Non-Af Amer) > 60 Random Glucose 85 (75-110) mg/dL Calcium 7.6 L (8.6-10.4) mg/dl Phosphorus (2.5-4.5) mg/dL Magnesium (1.6-2.3) mg/dL Total Bilirubin (0.2-1.3) mg/dL AST (17-59) U/L ALT (21-72) U/L Alkaline Phosphatase (38-126) U/L Total Protein (6.3-8.3) g/dL Albumin (3.5-5.0) g/dL Globulin (2.2-3.9) gm/dL Albumin/Globulin Ratio (1.0-2.1) Triglycerides (0-149) mg/dL Cholesterol (0-199) mg/dL LDL Cholesterol Direct (0-129) mg/dL HDL Cholesterol (30-70) mg/dL Free T4 (0.78-2.19) ng/dL Urine Osmolality 298 L (300-1000) mosm/kg Ur Random Sodium 80 mmol/L 06/12/18 06/12/18 06/12/18 Range/Units 06:22 06:22 04:51 WBC (4.8-10.8) K/uL RBC (4.40-5.90) Mil/uL Hgb (12.0-18.0) g/dL Hct (35.0-51.0) % MCV (80.0-94.0) fL MCH (27.0-31.0) pg MCHC (33.0-37.0) g/dL RDW (11.5-14.5) % Plt Count (130-400) K/uL MPV (7.2-11.7) fL Neut % (Auto) (50.0-75.0) % Lymph % (Auto) (20.0-40.0) % [place] % (Auto) (0.0-10.0) % Eos % (Auto) (0.0-4.0) % Baso % (Auto) (0.0-2.0) % Neut # (Auto) (1.8-7.0) K/uL Lymph # (Auto) (1.0-4.3) K/uL [place] # (Auto) (0.0-0.8) K/uL Eos # (Auto) (0.0-0.7) K/uL Baso # (Auto) (0.0-0.2) K/uL Neutrophils % (Manual) (50-75) % Band Neutrophils % (0-2) % Lymphocytes % (Manual) (20-40) % Monocytes % (Manual) (0-10) % Toxic Granulation Platelet Estimate (NORMAL) Large Platelets Polychromasia Hypochromasia (manual) Anisocytosis (manual) PT (9.7-12.2) SECONDS INR Puncture Site R rad pCO2 24 L (35-45) mm/Hg pO2 81 (80-100) mm/Hg HCO3 21.3 (21-28) mmol/L ABG pH 7.48 H (7.35-7.45) ABG Total CO2 18.6 L (22-28) mmol/L ABG O2 Saturation 97.8 (95-98) % ABG Base Excess -4.6 L (-2.0-3.0) mmol/L ABG Hemoglobin 8.7 L (11.7-17.4) g/dL ABG Carboxyhemoglobin 1.3 (0.5-1.5) % POC ABG HHb (Measured) 2.1 (0.0-5.0) % ABG Methemoglobin 1.2 (0.0-3.0) % Bob Test Pos A-a O2 Difference 246.0 mm/Hg Respiratory Index 3.0 Hgb O2 Saturation 95.3 (95.0-98.0) % Vent Mode Prvc Mechanical Rate 20 FiO2 50.0 % Tidal Volume 450 PEEP 5 Sodium 126 L (132-148) mmol/L Potassium 2.7 L (3.6-5.2) mmol/L Chloride 96 L (98-107) mmol/L Carbon Dioxide 20 L (22-30) mmol/L Anion Gap 12 (10-20) BUN 16 (9-20) mg/dL Creatinine 0.8 (0.8-1.5) mg/dL Est GFR ( Amer) > 60 Est GFR (Non-Af Amer) > 60 Random Glucose 98 (75-110) mg/dL Calcium 7.6 L (8.6-10.4) mg/dl Phosphorus 1.9 L (2.5-4.5) mg/dL Magnesium 1.6 (1.6-2.3) mg/dL Total Bilirubin 0.8 (0.2-1.3) mg/dL AST 65 H (17-59) U/L ALT 52 (21-72) U/L Alkaline Phosphatase 66 (38-126) U/L Total Protein 5.0 L (6.3-8.3) g/dL Albumin 2.5 L (3.5-5.0) g/dL Globulin 2.5 (2.2-3.9) gm/dL Albumin/Globulin Ratio 1.0 (1.0-2.1) Triglycerides 107 (0-149) mg/dL Cholesterol 108 (0-199) mg/dL LDL Cholesterol Direct < 30 (0-129) mg/dL HDL Cholesterol 39 (30-70) mg/dL Free T4 0.98 (0.78-2.19) ng/dL Urine Osmolality (300-1000) mosm/kg Ur Random Sodium mmol/L 06/11/18 06/11/18 06/11/18 Range/Units 20:36 17:20 17:20 WBC (4.8-10.8) K/uL RBC (4.40-5.90) Mil/uL Hgb (12.0-18.0) g/dL Hct (35.0-51.0) % MCV (80.0-94.0) fL MCH (27.0-31.0) pg MCHC (33.0-37.0) g/dL RDW (11.5-14.5) % Plt Count (130-400) K/uL MPV (7.2-11.7) fL Neut % (Auto) (50.0-75.0) % Lymph % (Auto) (20.0-40.0) % [place] % (Auto) (0.0-10.0) % Eos % (Auto) (0.0-4.0) % Baso % (Auto) (0.0-2.0) % Neut # (Auto) (1.8-7.0) K/uL Lymph # (Auto) (1.0-4.3) K/uL [place] # (Auto) (0.0-0.8) K/uL Eos # (Auto) (0.0-0.7) K/uL Baso # (Auto) (0.0-0.2) K/uL Neutrophils % (Manual) (50-75) % Band Neutrophils % (0-2) % Lymphocytes % (Manual) (20-40) % Monocytes % (Manual) (0-10) % Toxic Granulation Platelet Estimate (NORMAL) Large Platelets Polychromasia Hypochromasia (manual) Anisocytosis (manual) PT 15.0 H (9.7-12.2) SECONDS INR 1.4 Puncture Site pCO2 (35-45) mm/Hg pO2 (80-100) mm/Hg HCO3 (21-28) mmol/L ABG pH (7.35-7.45) ABG Total CO2 (22-28) mmol/L ABG O2 Saturation (95-98) % ABG Base Excess (-2.0-3.0) mmol/L ABG Hemoglobin (11.7-17.4) g/dL ABG Carboxyhemoglobin (0.5-1.5) % POC ABG HHb (Measured) (0.0-5.0) % ABG Methemoglobin (0.0-3.0) % Bob Test A-a O2 Difference mm/Hg Respiratory Index Hgb O2 Saturation (95.0-98.0) % Vent Mode Mechanical Rate FiO2 % Tidal Volume PEEP Sodium 119 L* (132-148) mmol/L Potassium 3.3 L (3.6-5.2) mmol/L Chloride 93 L (98-107) mmol/L Carbon Dioxide 19 L (22-30) mmol/L Anion Gap 11 (10-20) BUN 22 H (9-20) mg/dL Creatinine 0.8 (0.8-1.5) mg/dL Est GFR ( Amer) > 60 Est GFR (Non-Af Amer) > 60 Random Glucose 97 (75-110) mg/dL Calcium 7.1 L (8.6-10.4) mg/dl Phosphorus (2.5-4.5) mg/dL Magnesium (1.6-2.3) mg/dL Total Bilirubin (0.2-1.3) mg/dL AST (17-59) U/L ALT (21-72) U/L Alkaline Phosphatase (38-126) U/L Total Protein (6.3-8.3) g/dL Albumin (3.5-5.0) g/dL Globulin (2.2-3.9) gm/dL Albumin/Globulin Ratio (1.0-2.1) Triglycerides (0-149) mg/dL Cholesterol (0-199) mg/dL LDL Cholesterol Direct (0-129) mg/dL HDL Cholesterol (30-70) mg/dL Free T4 (0.78-2.19) ng/dL Urine Osmolality 359 (300-1000) mosm/kg Ur Random Sodium 14 mmol/L Laboratory Results - last 24 hr 06/11/18 06/11/18 06/11/18 17:20 17:20 20:36 WBC RBC Hgb Hct MCV MCH MCHC RDW Plt Count MPV Neut % (Auto) Lymph % (Auto) [place] % (Auto) Eos % (Auto) Baso % (Auto) Neut # (Auto) Lymph # (Auto) [place] # (Auto) Eos # (Auto) Baso # (Auto) Neutrophils % (Manual) Band Neutrophils % Lymphocytes % (Manual) Monocytes % (Manual) Toxic Granulation Platelet Estimate Large Platelets Polychromasia Hypochromasia (manual) Anisocytosis (manual) PT 15.0 H INR 1.4 Puncture Site pCO2 pO2 HCO3 ABG pH ABG Total CO2 ABG O2 Saturation ABG Base Excess ABG Hemoglobin ABG Carboxyhemoglobin POC ABG HHb (Measured) ABG Methemoglobin Bob Test A-a O2 Difference Respiratory Index Hgb O2 Saturation Vent Mode Mechanical Rate FiO2 Tidal Volume PEEP Sodium 119 L* Potassium 3.3 L Chloride 93 L Carbon Dioxide 19 L Anion Gap 11 BUN 22 H Creatinine 0.8 Est GFR ( Amer) > 60 Est GFR (Non-Af Amer) > 60 Random Glucose 97 Calcium 7.1 L Phosphorus Magnesium Total Bilirubin AST ALT Alkaline Phosphatase Total Protein Albumin Globulin Albumin/Globulin Ratio Triglycerides Cholesterol LDL Cholesterol Direct HDL Cholesterol Free T4 Urine Osmolality 359 Ur Random Sodium 14 06/12/18 06/12/18 06/12/18 04:51 06:22 06:22 WBC RBC Hgb Hct MCV MCH MCHC RDW Plt Count MPV Neut % (Auto) Lymph % (Auto) [place] % (Auto) Eos % (Auto) Baso % (Auto) Neut # (Auto) Lymph # (Auto) [place] # (Auto) Eos # (Auto) Baso # (Auto) Neutrophils % (Manual) Band Neutrophils % Lymphocytes % (Manual) Monocytes % (Manual) Toxic Granulation Platelet Estimate Large Platelets Polychromasia Hypochromasia (manual) Anisocytosis (manual) PT INR Puncture Site R rad pCO2 24 L pO2 81 HCO3 21.3 ABG pH 7.48 H ABG Total CO2 18.6 L ABG O2 Saturation 97.8 ABG Base Excess -4.6 L ABG Hemoglobin 8.7 L ABG Carboxyhemoglobin 1.3 POC ABG HHb (Measured) 2.1 ABG Methemoglobin 1.2 Bbo Test Pos A-a O2 Difference 246.0 Respiratory Index 3.0 Hgb O2 Saturation 95.3 Vent Mode Prvc Mechanical Rate 20 FiO2 50.0 Tidal Volume 450 PEEP 5 Sodium 126 L Potassium 2.7 L Chloride 96 L Carbon Dioxide 20 L Anion Gap 12 BUN 16 Creatinine 0.8 Est GFR ( Amer) > 60 Est GFR (Non-Af Amer) > 60 Random Glucose 98 Calcium 7.6 L Phosphorus 1.9 L Magnesium 1.6 Total Bilirubin 0.8 AST 65 H ALT 52 Alkaline Phosphatase 66 Total Protein 5.0 L Albumin 2.5 L Globulin 2.5 Albumin/Globulin Ratio 1.0 Triglycerides 107 Cholesterol 108 LDL Cholesterol Direct < 30 HDL Cholesterol 39 Free T4 0.98 Urine Osmolality Ur Random Sodium 06/12/18 06/12/18 06/12/18 06:22 11:56 13:20 WBC 8.0 RBC 2.70 L Hgb 8.5 L Hct 24.1 L MCV 89.2 MCH 31.6 H MCHC 35.4 RDW 17.1 H Plt Count 94 L MPV 8.2 Neut % (Auto) 74.5 Lymph % (Auto) 9.2 L [place] % (Auto) 16.0 H Eos % (Auto) 0.1 Baso % (Auto) 0.2 Neut # (Auto) 6.0 Lymph # (Auto) 0.7 L [place] # (Auto) 1.3 H Eos # (Auto) 0.0 Baso # (Auto) 0.0 Neutrophils % (Manual) 71 Band Neutrophils % 1 Lymphocytes % (Manual) 12 L Monocytes % (Manual) 16 H Toxic Granulation Present Platelet Estimate Decreased L Large Platelets Present Polychromasia Slight Hypochromasia (manual) Slight Anisocytosis (manual) Slight PT INR Puncture Site pCO2 pO2 HCO3 ABG pH ABG Total CO2 ABG O2 Saturation ABG Base Excess ABG Hemoglobin ABG Carboxyhemoglobin POC ABG HHb (Measured) ABG Methemoglobin Bob Test A-a O2 Difference Respiratory Index Hgb O2 Saturation Vent Mode Mechanical Rate FiO2 Tidal Volume PEEP Sodium 125 L Potassium 3.0 L Chloride 97 L Carbon Dioxide 21 L Anion Gap 10 BUN 11 Creatinine 0.7 L Est GFR ( Amer) > 60 Est GFR (Non-Af Amer) > 60 Random Glucose 85 Calcium 7.6 L Phosphorus Magnesium Total Bilirubin AST ALT Alkaline Phosphatase Total Protein Albumin Globulin Albumin/Globulin Ratio Triglycerides Cholesterol LDL Cholesterol Direct HDL Cholesterol Free T4 Urine Osmolality 298 L Ur Random Sodium 80 Fingerstick Blood Sugar Results: 158 Review of Systems - Review of Systems All systems: reviewed and no additional remarkable complaints except (no complaints) Critical Care Progress Note - Nutrition Nutrition: Nutrition Category Date Time Status NPO Diet [DIET] Diets 06/11/18 Breakfast Active Assessment/Plan (1) Cardiac arrest Assessment and plan: Neuro: alert and oriented to person and place. [place] for history of seizure disorder. Pulm: acute respiratory failure improved, extubated, needed BIPAP later for tachypnea. CV: hemodynamically stable Hem: anemia from blood loss, currently stable Renal: urine output wnl Endo: no acute issues GI: NPO, protonix gtt, octreotide gtt. 2 ulcers found on EGD (06/11), 1 clipped , 1 not accessible but not bleeding. If bleeding resumes will have to consult IR for possible embolectomy or surgery for resection. ID: UTI on Zosyn x 3 days. DVT proph - SCD's, a/c held with recent bleeding GI proph - protonix gtt [place] for strict I/O's during acute illness Code status - full code Critical Care Time spent 35 minutes Multi-disciplinary rounds were performed with house staff, nursing, speech therapy, respiratory therapy, pharmacy and nutrition with integrated input from the primary team/attending and other consulting services. The documented time is cumulative and includes review of patient data/exams/labs/chart review and examination of the patient on rounds and throughout the day; time is exclusive of any procedures or teaching time. Current Visit: Yes Status: Acute
--- NOTE | 2018-06-12 21:14 | CP.PCM.PN ---
Subjective - Date & Time of Evaluation Date of Evaluation: 06/12/18 Time of Evaluation: 14:00 - Subjective Subjective: Patient extubated earlier today; tachypneic, on non-rebreather; Objective - Vital Signs/Intake and Output Vital Signs (last 24 hours): Temp Pulse Resp BP Pulse Ox 97.2 F L 109 H 30 H 131/74 98 06/12/18 20:00 06/12/18 20:00 06/12/18 20:00 06/12/18 20:03 06/12/18 20:00 Intake and Output: 06/12/18 06/13/18 18:59 06:59 Intake Total 1545 194 Output Total 2175 350 Balance -630 -156 - Medications Medications: Current Medications Norepinephrine Bitartrate 4 mg (/ Sodium Chloride) 254 mls @ 15.24 mls/hr IV .[id number] PRN; Protocol; 4 MCG/MIN PRN Reason: TITRATE PER MD ORDER Last Titration: 06/12/18 08:00 Dose: 0 mcg/min, 0 mls/hr Piperacillin Sod/Tazobactam Sod (Zosyn 3.375 Gm Iv Premix) 3.375 gm in 50 mls @ 100 mls/hr IVPB Q6H MAYANK PRN Reason: Protocol Stop: 06/14/18 02:30 Last Admin: 06/12/18 20:00 Dose: 100 mls/hr Pantoprazole Sodium 80 mg/ (Sodium Chloride) 100 mls @ 10 mls/hr IVPB .Q10H MAYANK PRN Reason: 8 MG/HR Last Admin: 06/12/18 20:01 Dose: 10 mls/hr Levetiracetam 500 mg/ Dextrose 105 mls @ 420 mls/hr IVPB Q12H [facility] Last Admin: 06/12/18 18:37 Dose: 420 mls/hr Acetaminophen (Ofirmev) 100 mls @ 100 mls/hr IV ONCE ONE Stop: 06/12/18 21:15 Last Admin: 06/12/18 20:25 Dose: 100 mls/hr Sucralfate (Carafate Oral Susp) 1 gm PO QID [facility] Last Admin: 06/12/18 17:36 Dose: Not Given - Labs Labs: 06/12/18 06:22 06/12/18 13:20 PT 15.0 SECONDS (9.7-12.2) H 06/11/18 17:20 INR 1.4 06/11/18 17:20 APTT 40 SECONDS (21-34) H 06/10/18 23:37 - Eye Exam Eye Exam: Normal appearance - Respiratory Exam Respiratory Exam: Respiratory Distress - Cardiovascular Exam Cardiovascular Exam: +S1, +S2. absent: Gallop, Rubs - GI/Abdominal Exam GI & Abdominal Exam: Soft. absent: Distended, Tenderness - Extremities Exam Additional comments: no leg edema; - Neurological Exam Neurological Exam: Alert, Awake - Psychiatric Exam Psychiatric exam: absent: Agitated - Skin Skin Exam: Warm. absent: Cyanosis Assessment and Plan (1) Hyponatremia Assessment & Plan: Correction faster than our goal (no more than ~16 meq rise in 48 hrs; another 2 mcg IV desmopressin being given to halt further rise; getting K-phos in D5W which should be enough free water (1L over 8 hrs) to help stabilize Na level; Status: Acute (2) Cardiac arrest Assessment & Plan: No longer hypotensive, off pressors, receieved 1/2NS overnight for additional volume; continue to hold further volume replenishment as we try to avoid having serum Na rise further for today; Status: Acute (3) Hypokalemia Assessment & Plan: Continue to replenish, goal 4.0 in the setting of recent cardiac arrest; Status: Acute
[2018-06-12 21:59] LABS: BLOOD UREA NITROGEN 9 mg/dL (9-20); CALCIUM 7.6 mg/dl (8.6-10.4); GFR NON-AFRICAN AMERICAN > 60
--- NOTE | 2018-06-12 22:42 | CARD ---
APPROVED REPORT Date of service: 06/11/2018 EXAM: Two-dimensional and M-mode echocardiogram with Doppler and color Doppler. Other Information Quality : Technically LimitedRhythm : INDICATION ALCOHOL ABUSED, S/P CARDIAC ARREST 2D DIMENSIONS IVSd1.4 (0.7-1.1cm)LVDd2.5 (3.9-5.9cm) LVOT Diameter1.8 (1.8-2.4cm)PWd1.3 (0.7-1.1cm) LVDs1.9 (2.5-4.0cm)FS (%) 23.3 % LVEF (%)48.8 (>50%) M-Mode DIMENSIONS Left Atrium (MM)3.01 (2.5-4.0cm)Aortic Root3.13 (2.2-3.7cm) Aortic Cusp Exc.1.40 (1.5-2.0cm) Mitral Valve MV E Slxlxlnq12.0cm/sMV A Rylqmllz56.9cm/sE/A ratio0.8 TDI E/Lateral E'0.0E/Medial E'0.0 Pulmonary Valve PV Peak Ktmtvebf694.3cm/sPV Peak Grad.5mmHg Tricuspid Valve TR Peak Nwhiodha001gx/sTR Peak [id number] LEFT VENTRICLE There is mild concentric left ventricular hypertrophy. Left ventricle systolic function is low normal. The left ventricular diastolic function is abnormal. Transmitral Doppler flow pattern is Grade I-abnormal relaxation pattern. RIGHT VENTRICLE The right ventricle is normal size. The right ventricular systolic function is normal. ATRIA The left atrium size looks normal. The right atrium size looks normal. AORTIC VALVE The aortic valve is not well visualized. The aortic valve seems to be tricuspid and opens well. No aortic regurgitation is present. There is no aortic valvular stenosis. MITRAL VALVE The mitral valve is normal in structure and function. There is no evidence of mitral valve prolapse. There is no mitral valve stenosis. TRICUSPID VALVE The tricuspid valve is not well visualized. There is trace to mild tricuspid regurgitation. PULMONIC VALVE The pulmonic valve is not well visualized. There is no pulmonic valvular regurgitation. There is no pulmonic valvular stenosis. GREAT VESSELS The aortic root is normal in size. PERICARDIAL EFFUSION There is no pericardial effusion. There is no pleural effusion. <Conclusion> Technically difficult and limited study. Unable tp asses segmental wall motion abnormality. The Ejection Fraction is 45-50%. The left ventricular diastolic function is abnormal. Transmitral Doppler flow pattern is Grade I-abnormal relaxation pattern. The left atrium size looks normal. The right atrium size looks normal. There is trace to mild tricuspid regurgitation.
[2018-06-12] MEDS: Dexmedetomidine Hydrochloride 200 MCG in Sodium Chloride 0.9% 48 ML IV PRN (23:13)
[2018-06-13] MEDS: Piperacill/Tazo 3.375gm in Dex 3.375 GM/50 ML BAG IVPB SCH ×4 (02:38→21:09)
[2018-06-13] MEDS: Pantoprazole 80 MG in Sodium Chloride 0.9% 100 ML IVPB SCH ×2 (05:52→15:41)
--- NOTE | 2018-06-13 06:01 | CP.PCM.PN ---
Subjective - Date & Time of Evaluation Date of Evaluation: 06/13/18 Time of Evaluation: 06:01 - Subjective Subjective: Mr. Clancy was seen and examined at the bedside in ICU. He is on bipap machine, opens his eyes spontaneously with verbal stimuli, knows his name, but confused to time and place, reactive to light accommodation, moves all extremities spontaneously. He has bilateral upper extremities with hand mitten for patient safety.He has episode of restlessness and agitation, on low dose of precedex drip. There was no untoward events overnight. Objective - Vital Signs/Intake and Output Vital Signs (last 24 hours): Temp Pulse Resp BP Pulse Ox 97.8 F 90 31 H 103/59 L 99 06/13/18 04:00 06/13/18 05:03 06/13/18 05:03 06/13/18 05:03 06/13/18 05:03 Intake and Output: 06/12/18 06/13/18 18:59 06:59 Intake Total 1545 546.6 Output Total 2175 970 Balance -630 -423.4 - Medications Medications: Current Medications Norepinephrine Bitartrate 4 mg (/ Sodium Chloride) 254 mls @ 15.24 mls/hr IV .[id number] PRN; Protocol; 4 MCG/MIN PRN Reason: TITRATE PER MD ORDER Last Titration: 06/12/18 08:00 Dose: 0 mcg/min, 0 mls/hr Piperacillin Sod/Tazobactam Sod (Zosyn 3.375 Gm Iv Premix) 3.375 gm in 50 mls @ 100 mls/hr IVPB Q6H [facility] PRN Reason: Protocol Stop: 06/14/18 02:30 Last Admin: 06/13/18 02:38 Dose: 100 mls/hr Pantoprazole Sodium 80 mg/ (Sodium Chloride) 100 mls @ 10 mls/hr IVPB .Q10H [facility] PRN Reason: 8 MG/HR Last Admin: 06/13/18 05:52 Dose: 10 mls/hr Levetiracetam 500 mg/ Dextrose 105 mls @ 420 mls/hr IVPB Q12H [facility] Last Admin: 06/12/18 18:37 Dose: 420 mls/hr Dexmedetomidine HCl 200 mcg/ (Sodium Chloride) 50 mls @ 2.63 mls/hr IV TITR PRN ; Protocol; 0.2 MCG/KG/HR PRN Reason: Restlessness Last Titration: 06/13/18 03:50 Dose: 0.4 mcg/kg/hr, 5.27 mls/hr Sucralfate (Carafate Oral Susp) 1 gm PO QID MAYANK Last Admin: 06/12/18 21:42 Dose: Not Given - Labs Labs: 06/12/18 06:22 06/12/18 21:43 PT 15.0 SECONDS (9.7-12.2) H 06/11/18 17:20 INR 1.4 06/11/18 17:20 APTT 40 SECONDS (21-34) H 06/10/18 23:37 - Constitutional Appears: No Acute Distress - Head Exam Head Exam: NORMAL INSPECTION - Eye Exam Pupil Exam: Mydriatic, PERRL Additional comments: 4 mm - Neurological Exam Neurological Exam: Awake Neuro motor strength exam: Left Upper Extremity: 4, Right Upper Extremity: 4, Left Lower Extremity: 4, Right Lower Extremity: 4 Additional comments: alert only to his name, but confused to time and place, moves all extremities, sensation is intact. Assessment and Plan (1) Encephalopathy acute Assessment & Plan: Continue all current medical regimen. Recommend EEG, treat any electrolyte and HGB abnormalities, keep head of bed elevated at least 30 degrees. Status: Acute
[2018-06-13 06:34] LABS: INR 1.5
[2018-06-13 06:35] LABS: BASO % 0.2 % (0.0-2.0); EOS % 0.5 % (0.0-4.0); HEMOGLOBIN 8.5 g/dL (12.0-18.0); LYMPH # 0.7 K/uL (1.0-4.3); MEAN CELL VOLUME 88.8 fL (80.0-94.0); MEAN CORPUSCULAR HEMOGLOBIN 31.9 pg (27.0-31.0); MEAN CORPUSCULAR HGB CONC 35.9 g/dL (33.0-37.0); MEAN PLATELET VOLUME 7.6 fL (7.2-11.7); MONO # 0.9 K/uL (0.0-0.8); MONO % 12.5 % (0.0-10.0); NEUT # 5.9 K/uL (1.8-7.0); NEUT % 77.8 % (50.0-75.0); PLATELET COUNT 99 K/uL (130-400); RBC 2.67 Mil/uL (4.40-5.90); RED CELL DISTRIBUTION WIDTH 17.2 % (11.5-14.5); WHITE BLOOD COUNT 7.5 K/uL (4.8-10.8)
[2018-06-13 06:46] LABS: ALBUMIN 2.6 g/dL (3.5-5.0); ALT/SGPT 50 U/L (21-72); AST/SGOT 59 U/L (17-59); BLOOD UREA NITROGEN 8 mg/dL (9-20); CALCIUM 7.6 mg/dl (8.6-10.4); GFR NON-AFRICAN AMERICAN > 60
[2018-06-13] MEDS: Dexmedetomidine Hydrochloride 200 MCG in Sodium Chloride 0.9% 48 ML IV PRN ×3 (06:59→22:07)
--- NOTE | 2018-06-13 07:59 | CP.PCM.PN ---
<Lars Jenkins - Last Filed: 06/13/18 14:58> Subjective - Date & Time of Evaluation Date of Evaluation: 06/13/18 Time of Evaluation: 07:20 - Subjective Subjective: PGY-4 GI Fellow Prog Note Pt was lying in bed when seen this AM. Restless on BiPAP limiting history. Unable to obtain ROS due to clinical condition Objective - Vital Signs/Intake and Output Vital Signs (last 24 hours): Temp Pulse Resp BP Pulse Ox 97.8 F 93 H 34 H 122/74 99 06/13/18 04:00 06/13/18 07:00 06/13/18 07:00 06/13/18 06:03 06/13/18 07:00 Intake and Output: 06/13/18 06/13/18 06:59 18:59 Intake Total 692.2 115.6 Output Total 1000 50 Balance -307.8 65.6 - Medications Medications: Current Medications Norepinephrine Bitartrate 4 mg (/ Sodium Chloride) 254 mls @ 15.24 mls/hr IV .[id number] PRN; Protocol; 4 MCG/MIN PRN Reason: TITRATE PER MD ORDER Last Titration: 06/12/18 08:00 Dose: 0 mcg/min, 0 mls/hr Piperacillin Sod/Tazobactam Sod (Zosyn 3.375 Gm Iv Premix) 3.375 gm in 50 mls @ 100 mls/hr IVPB Q6H [facility] PRN Reason: Protocol Stop: 06/14/18 02:30 Last Admin: 06/13/18 02:38 Dose: 100 mls/hr Pantoprazole Sodium 80 mg/ (Sodium Chloride) 100 mls @ 10 mls/hr IVPB .Q10H [facility] PRN Reason: 8 MG/HR Last Admin: 06/13/18 05:52 Dose: 10 mls/hr Levetiracetam 500 mg/ Dextrose 105 mls @ 420 mls/hr IVPB Q12H [facility] Last Admin: 06/13/18 06:44 Dose: 420 mls/hr Dexmedetomidine HCl 200 mcg/ (Sodium Chloride) 50 mls @ 2.63 mls/hr IV TITR PRN ; Protocol; 0.2 MCG/KG/HR PRN Reason: Restlessness Last Admin: 06/13/18 06:59 Dose: 0.4 mcg/kg/hr, 5.27 mls/hr Potassium Chloride (Potassium Chloride 20 Meq/100 Ml) 20 meq in 100 mls @ 50 mls/hr IVPB Q2 [facility] Stop: 06/13/18 09:59 Last Admin: 06/13/18 06:57 Dose: 50 mls/hr Magnesium Sulfate/Dextrose (Magnesium Sulfate 1 Gm/100 Ml D5w) 1 gm in 100 mls @ 200 mls/hr IVPB Q30M [facility] Stop: 06/13/18 08:44 Sucralfate (Carafate Oral Susp) 1 gm PO QID [facility] Last Admin: 06/12/18 21:42 Dose: Not Given - Labs Labs: 06/13/18 06:20 06/13/18 06:20 PT 16.0 SECONDS (9.7-12.2) H 06/13/18 06:20 INR 1.5 06/13/18 06:20 APTT 40 SECONDS (21-34) H 06/10/18 23:37 - Constitutional Appears: In Acute Distress (mild), Agitated, Confused, Chronically Ill - Eye Exam Eye Exam: EOMI. absent: Scleral icterus - Respiratory Exam Respiratory Exam: Accessory Muscle Use, Respiratory Distress (mild) Additional comments: Coarse breath sounds bilaterally - Cardiovascular Exam Cardiovascular Exam: Tachycardia, REGULAR RHYTHM - GI/Abdominal Exam GI & Abdominal Exam: Soft, Normal Bowel Sounds. absent: Distended, Firm, Tenderness Assessment and Plan - Assessment and Plan (Free Text) Assessment: 52yM with a h/o of alcohol abuse, seizure disorder with medication noncompliance , PUD with GI bleed and Bilroth II 5yrs ago at [facility] [place], COPD. Pt presenting to the ER s/p PEA cardiopulmonary arrest. GI was consulted for anemia and GI bleeding. # Anemia, Upper GI Bleed, h/o Bilroth II: s/p EGD with PUD and ulcers with stigmata of recent hemorrhage. FC IIa (s/p APC and clips) and FC IIb (not intervened due to adverse location endoscopically. # Cardiopulmonary Arrest: Intubated on admission, since extubated and on BiPAP # Metabolic Acidosis, Hypokalemia, Hyponatremia: Pt with significant electrolyte abnormalities being corrected by Nephrology and Hospitalist # Seizure # Alcohol abuse Plan: -Cont supportive care, extubated, currently BiPAP -Active GI bleeding resolved for now, off pressors, Hgb stable s/p 2U PRBCs on -Cont to monitor H&H -Carafate 1g qid -IV PPI drip thru today, plan to transition to IV BID Inj tomorrow -If pt develops further bleeding will need IR and Surgery on board, difficult to treat endoscopically -Cardiology following s/p PEA/Asystole arrest -Will continue to follow pt closely Pt seen and examined with Dr. Ho <Kenrick Ho - Last Filed: 06/13/18 15:14> Objective - Vital Signs/Intake and Output Vital Signs (last 24 hours): Temp Pulse Resp BP Pulse Ox 97.8 F 98 H 46 H 138/49 L 94 L 06/13/18 08:00 06/13/18 13:54 06/13/18 11:03 06/13/18 11:03 06/13/18 11:03 Intake and Output: 06/13/18 06/13/18 06:59 18:59 Intake Total 692.2 115.6 Output Total 1000 50 Balance -307.8 65.6 - Medications Medications: Current Medications Piperacillin Sod/Tazobactam Sod (Zosyn 3.375 Gm Iv Premix) 3.375 gm in 50 mls @ 100 mls/hr IVPB Q6H [facility] PRN Reason: Protocol Stop: 06/14/18 02:30 Last Admin: 06/13/18 08:35 Dose: 100 mls/hr Pantoprazole Sodium 80 mg/ (Sodium Chloride) 100 mls @ 10 mls/hr IVPB .Q10H [facility] PRN Reason: 8 MG/HR Last Admin: 06/13/18 05:52 Dose: 10 mls/hr Levetiracetam 500 mg/ Dextrose 105 mls @ 420 mls/hr IVPB Q12H [facility] Last Admin: 06/13/18 06:44 Dose: 420 mls/hr Dexmedetomidine HCl 200 mcg/ (Sodium Chloride) 50 mls @ 2.63 mls/hr IV TITR PRN ; Protocol; 0.2 MCG/KG/HR PRN Reason: Restlessness Last Admin: 06/13/18 06:59 Dose: 0.4 mcg/kg/hr, 5.27 mls/hr Potassium Chloride (Potassium Chloride 20 Meq/100 Ml) 20 meq in 100 mls @ 50 mls/hr IVPB Q2 [facility] Stop: 06/13/18 17:59 Last Admin: 06/13/18 13:32 Dose: 50 mls/hr Potassium Chloride 40 meq/ (Sodium Chloride) 1,020 mls @ 75 mls/hr IV .[id number] [facility] Last Admin: 06/13/18 13:31 Dose: 75 mls/hr Sucralfate (Carafate Oral Susp) 1 gm PO QID [facility] Last Admin: 06/13/18 13:31 Dose: Not Given - Labs Labs: 06/13/18 06:20 06/13/18 11:49 PT 16.0 SECONDS (9.7-12.2) H 06/13/18 06:20 INR 1.5 06/13/18 06:20 APTT 40 SECONDS (21-34) H 06/10/18 23:37 Attending/Attestation - Attestation I have personally seen and examined this patient.: Yes I have fully participated in the care of the patient.: Yes I have reviewed all pertinent clinical information, including history, physical exam and plan: Yes Notes (Text): 06/13/18 15:09 I have seen and examined patient with GI fellow. No acute events overnight, he was extubated yesterday but remains sedated on BIPAP in intensive care unit. As per nursing staff, patient with one dark black bowel movement over past 12 hours. No reported abdominal pain, nausea, vomiting. ETOH abuse Seizure disorder Cardiac arrest Anemia - s/p EGD showing anastomotic ulceration s/p endoscopic therapy, one lesion not treated due to difficult location - NPO - H/H stable, continue to monitor - Continue with PPI infusion therapy - Continue with carafate - Will continue to monitor patient clinical course
--- NOTE | 2018-06-13 08:13 | CARD ---
APPROVED REPORT Date of service: 06/10/2018 EKG Measurement Heart [id number] <Conclusion> Sinus tachycardia Cannot rule out Inferior infarct, age undetermined Nonspecific ST segment abnormality Abnormal ECG
[2018-06-13 08:20] LABS: BANDS 2 % (0-2); MONOCYTE 12 % (0-10); REACTIVE LYMPHOCYTES 1 % (0-0); TOTAL CELLS COUNTED 100
[2018-06-13 08:21] LABS: ANISOCYTOSIS SLIGHT; LYMPHOCYTE 10 % (20-40); NEUTROPHIL 75 % (50-75); PLATELET ESTIMATE DECREASED (NORMAL)
[2018-06-13 08:22] LABS: BURR CELLS SLIGHT; HYPOCHROMIC SLIGHT; POIKILOCYTOSIS SLIGHT; TARGET CELLS SLIGHT; TEARDROP CELLS SLIGHT
--- NOTE | 2018-06-13 08:24 | RAD ---
Chest x-ray single frontal view History: Chest pain. Comparison: 06/10/2018 Findings: Interval insertion of a left central venous catheter with tip extending to the cavoatrial junction. Other lines and tubes in stable position. Mild venous congestion. Biapical pleural thickening with upper lobe granulomatous changes. Consolidative changes at the right lung base. Degenerative changes in the spine. Postsurgical changes of the left proximal humerus. Impression: Interval insertion of a left central venous catheter with tip extending to the cavoatrial junction. Other lines and tubes in stable position. Mild venous congestion. Biapical pleural thickening with upper lobe granulomatous changes. Consolidative changes at the right lung base. Degenerative changes in the spine. Postsurgical changes of the left proximal humerus.
[2018-06-13] MEDS: Magnesium Sulfate 1 gm in D5W 1 GM/100 ML BAG IVPB SCH ×2 (08:25→08:35)
--- NOTE | 2018-06-13 08:37 | CP.PCM.PN ---
<Gaurav Chaves - Last Filed: 06/13/18 12:49> Subjective - Date & Time of Evaluation Date of Evaluation: 06/13/18 Time of Evaluation: 08:35 - Subjective Subjective: Progress Note for 's Service Patient seen and examined at bedside. Per nursing no acute events occurred overnight. ROS unobtainable due to patient's current clinical condition. Objective - Vital Signs/Intake and Output Vital Signs (last 24 hours): Temp Pulse Resp BP Pulse Ox 97.8 F 93 H 34 H 122/74 99 06/13/18 04:00 06/13/18 08:24 06/13/18 07:00 06/13/18 06:03 06/13/18 07:00 Intake and Output: 06/13/18 06/13/18 06:59 18:59 Intake Total 692.2 115.6 Output Total 1000 50 Balance -307.8 65.6 - Medications Medications: Current Medications Norepinephrine Bitartrate 4 mg (/ Sodium Chloride) 254 mls @ 15.24 mls/hr IV .[id number] PRN; Protocol; 4 MCG/MIN PRN Reason: TITRATE PER MD ORDER Last Titration: 06/12/18 08:00 Dose: 0 mcg/min, 0 mls/hr Piperacillin Sod/Tazobactam Sod (Zosyn 3.375 Gm Iv Premix) 3.375 gm in 50 mls @ 100 mls/hr IVPB Q6H [facility] PRN Reason: Protocol Stop: 06/14/18 02:30 Last Admin: 06/13/18 02:38 Dose: 100 mls/hr Pantoprazole Sodium 80 mg/ (Sodium Chloride) 100 mls @ 10 mls/hr IVPB .Q10H [facility] PRN Reason: 8 MG/HR Last Admin: 06/13/18 05:52 Dose: 10 mls/hr Levetiracetam 500 mg/ Dextrose 105 mls @ 420 mls/hr IVPB Q12H [facility] Last Admin: 06/13/18 06:44 Dose: 420 mls/hr Dexmedetomidine HCl 200 mcg/ (Sodium Chloride) 50 mls @ 2.63 mls/hr IV TITR PRN ; Protocol; 0.2 MCG/KG/HR PRN Reason: Restlessness Last Admin: 08/20/18 06:59 Dose: 0.4 mcg/kg/hr, 5.27 mls/hr Potassium Chloride (Potassium Chloride 20 Meq/100 Ml) 20 meq in 100 mls @ 50 mls/hr IVPB Q2 [facility] Stop: 06/13/18 09:59 Last Admin: 06/13/18 08:09 Dose: 50 mls/hr Magnesium Sulfate/Dextrose (Magnesium Sulfate 1 Gm/100 Ml D5w) 1 gm in 100 mls @ 200 mls/hr IVPB Q30M [facility] Stop: 06/13/18 08:44 Last Admin: 06/13/18 08:25 Dose: 200 mls/hr Sucralfate (Carafate Oral Susp) 1 gm PO QID [facility] Last Admin: 06/12/18 21:42 Dose: Not Given - Labs Labs: 06/13/18 06:20 06/13/18 06:20 PT 16.0 SECONDS (9.7-12.2) H 06/13/18 06:20 INR 1.5 06/13/18 06:20 APTT 40 SECONDS (21-34) H 06/10/18 23:37 - Head Exam Head Exam: ATRAUMATIC, NORMAL INSPECTION, NORMOCEPHALIC - Eye Exam Eye Exam: EOMI, Normal appearance, PERRL Pupil Exam: NORMAL ACCOMODATION, PERRL - ENT Exam ENT Exam: Mucous Membranes Moist, Normal Oropharynx - Neck Exam Neck Exam: absent: Lymphadenopathy, Meningismus, Thyromegaly - Respiratory Exam Respiratory Exam: Rhonchi - Cardiovascular Exam Cardiovascular Exam: REGULAR RHYTHM, +S1, +S2. absent: RRR, Rubs - GI/Abdominal Exam GI & Abdominal Exam: Soft, Normal Bowel Sounds. absent: Rigid, Hyperactive Bowel Sounds - Extremities Exam Extremities Exam: absent: Joint Swelling, Pedal Edema, Tenderness - Back Exam Back Exam: NORMAL INSPECTION. absent: CVA tenderness (R), paraspinal tenderness - Neurological Exam Neurological Exam: Altered - Psychiatric Exam Psychiatric exam: Normal Affect, Normal Mood - Skin Skin Exam: Dry, Intact Assessment and Plan - Assessment and Plan (Free Text) Plan: Assessment and Plan (1) Hyponatremia Assessment & Plan: Correction faster than our goal (no more than ~16 meq rise in 48 hrs Na 127 today. Will continue to monitor with serial CMP's NS w/KCL 40 meq @75mls/hr Status: Acute (2) Cardiac arrest Assessment & Plan: No longer hypotensive, off pressors, receieved 1/2NS overnight for additional volume; Status: Acute (3) Hypokalemia Assessment & Plan: Continue to replenish, goal 4.0 in the setting of recent cardiac arrest; K 2.5 today. Will monitor with serial CMP's. Status: Acute 4.Hypomagnesmia Continue to replenish. Will monitor with serial CMP's. All management per . Gaurav Chaves, PGY-2 <Messi Shafer - Last Filed: 06/13/18 23:18> Objective - Vital Signs/Intake and Output Vital Signs (last 24 hours): Temp Pulse Resp BP Pulse Ox 97.7 F 93 H 38 H 92/48 L 100 06/13/18 20:00 06/13/18 22:24 06/13/18 22:03 06/13/18 22:03 06/13/18 22:03 Intake and Output: 06/13/18 06/14/18 18:59 06:59 Intake Total 806.0 491.0 Output Total 585 265 Balance 221.0 226.0 - Medications Medications: Current Medications Piperacillin Sod/Tazobactam Sod (Zosyn 3.375 Gm Iv Premix) 3.375 gm in 50 mls @ 100 mls/hr IVPB Q6H [facility] PRN Reason: Protocol Stop: 06/14/18 02:30 Last Admin: 06/13/18 21:09 Dose: 100 mls/hr Pantoprazole Sodium 80 mg/ (Sodium Chloride) 100 mls @ 10 mls/hr IVPB .Q10H [facility] PRN Reason: 8 MG/HR Last Admin: 06/13/18 15:41 Dose: 10 mls/hr Levetiracetam 500 mg/ Dextrose 105 mls @ 420 mls/hr IVPB Q12H [facility] Last Admin: 06/13/18 19:39 Dose: 420 mls/hr Dexmedetomidine HCl 200 mcg/ (Sodium Chloride) 50 mls @ 2.63 mls/hr IV TITR PRN ; Protocol; 0.2 MCG/KG/HR PRN Reason: Restlessness Last Admin: 06/13/18 22:07 Dose: 0.7 mcg/kg/hr, 9.23 mls/hr Potassium Chloride 40 meq/ (Sodium Chloride) 1,020 mls @ 75 mls/hr IV .[id number] [facility] Last Admin: 06/13/18 13:31 Dose: 75 mls/hr Lorazepam (Ativan) 1 mg IVP Q4H PRN PRN Reason: Anxiety Last Admin: 06/13/18 17:21 Dose: 1 mg Sucralfate (Carafate Oral Susp) 1 gm PO QID [facility] Last Admin: 06/13/18 21:09 Dose: 1 gm - Labs Labs: 06/13/18 06:20 06/13/18 11:49 PT 16.0 SECONDS (9.7-12.2) H 06/13/18 06:20 INR 1.5 06/13/18 06:20 APTT 40 SECONDS (21-34) H 06/10/18 23:37 Assessment and Plan (1) Hyponatremia Status: Acute (2) Cardiac arrest Status: Acute (3) Hypokalemia Status: Acute Attending/Attestation - Attestation I have personally seen and examined this patient.: Yes I have fully participated in the care of the patient.: Yes I have reviewed all pertinent clinical information, including history, physical exam and plan: Yes Notes (Text): Patient seen and examined; I agree with the resident's note as above the following additions/edits: Patient with history of alcohol abuse admitted status post cardiac arrest; nephrology consulted for severe hyponatremia; Serum sodium today 127; is now outside of the timeframe where we need to worry about rapid correction of hyponatremia; patient appears to be volume depleted with low/normal blood pressures at times; volume depletion is likely driving patient's hypo-kalemia via secondary hyperaldosteronism; additionally patient is total body magnesium depleted; -Patient has been getting IV potassium and magnesium replenishment; recommend to monitor levels closely and keep potassium level close to 4.0 in the setting of recent cardiac arrest; -Recommend to run IV Mag sulfate slowly so as to avoid renal wasting due to high plasma concentrations; should run at no greater than 1 g per hour ( preferably slower than this); -Starting IV fluids with NS at 75 mL per hour with 40 mEq of potassium chloride per liter; CXR clear despite tachypnea and impending respiratory failure; 06/13/18 23:12
[2018-06-13] MEDS: Sucralfate 1 gm/10 ml Oral Susp UD PO SCH ×4 (11:00→21:09)
[2018-06-13] MEDS ORDERED: Albuterol-Ipratrop 3 mg / 0.5 (3 ml) UD INH STA (11:07)
[2018-06-13 11:20] LABS: ARTERIAL BLOOD GAS HCO3 22.7 mmol/L (21-28); ARTERIAL BLOOD GAS O2 SAT 97.2 % (95-98); ARTERIAL BLOOD GAS PCO2 32 mm/Hg (35-45); ARTERIAL BLOOD GAS PH 7.42 (7.35-7.45); ARTERIAL BLOOD GAS PO2 75 mm/Hg (80-100); ARTERIAL BLOOD GAS TCO2 21.8 mmol/L (22-28)
--- NOTE | 2018-06-13 12:02 | RAD ---
Date of service: 06/13/2018 HISTORY: sob COMPARISON: 06/12/2018 FINDINGS: LUNGS: No definite infiltrate identified. There is some opacity in the left lung which may be related to overlying tubing. PLEURA: No significant pleural effusion identified, no pneumothorax apparent. CARDIOVASCULAR: Normal heart size. No congestive change. Left internal jugular central venous catheter. Status post removal of ET tube. OSSEOUS STRUCTURES: Status post ORIF left proximal humeral fracture. VISUALIZED UPPER ABDOMEN: Normal. OTHER FINDINGS: None. IMPRESSION: No definite infiltrate. Limited examination due to artifact from overlying oxygen tubing. Follow-up advised.
[2018-06-13 12:25] LABS: ALBUMIN 2.8 g/dL (3.5-5.0); ALT/SGPT 49 U/L (21-72); AST/SGOT 56 U/L (17-59); BLOOD UREA NITROGEN 6 mg/dL (9-20); CALCIUM 7.8 mg/dl (8.6-10.4); GFR NON-AFRICAN AMERICAN > 60
--- NOTE | 2018-06-13 16:53 | CP.PCM.PN ---
Subjective - Date & Time of Evaluation Date of Evaluation: 06/13/18 Time of Evaluation: 16:55 - Subjective Subjective: Medical Attending note: Patient seen and examined. Patient is on Bipap; noting pleuritic chest pain. Discussed with RN, he had one black stool overnight. Objective - Vital Signs/Intake and Output Vital Signs (last 24 hours): Temp Pulse Resp BP Pulse Ox 97.8 F 98 H 46 H 138/49 L 94 L 06/13/18 08:00 06/13/18 13:54 06/13/18 11:03 06/13/18 11:03 06/13/18 11:03 Intake and Output: 06/13/18 06/13/18 06:59 18:59 Intake Total 692.2 165.6 Output Total 1000 50 Balance -307.8 115.6 - Medications Medications: Current Medications Piperacillin Sod/Tazobactam Sod (Zosyn 3.375 Gm Iv Premix) 3.375 gm in 50 mls @ 100 mls/hr IVPB Q6H [facility] PRN Reason: Protocol Stop: 06/14/18 02:30 Last Admin: 06/13/18 08:35 Dose: 100 mls/hr Pantoprazole Sodium 80 mg/ (Sodium Chloride) 100 mls @ 10 mls/hr IVPB .Q10H [facility] PRN Reason: 8 MG/HR Last Admin: 06/13/18 15:41 Dose: 10 mls/hr Levetiracetam 500 mg/ Dextrose 105 mls @ 420 mls/hr IVPB Q12H [facility] Last Admin: 06/13/18 06:44 Dose: 420 mls/hr Dexmedetomidine HCl 200 mcg/ (Sodium Chloride) 50 mls @ 2.63 mls/hr IV TITR PRN ; Protocol; 0.2 MCG/KG/HR PRN Reason: Restlessness Last Admin: 06/13/18 15:40 Dose: 0.4 mcg/kg/hr, 5.27 mls/hr Potassium Chloride (Potassium Chloride 20 Meq/100 Ml) 20 meq in 100 mls @ 50 mls/hr IVPB Q2 [facility] Stop: 06/13/18 17:59 Last Admin: 06/13/18 13:32 Dose: 50 mls/hr Potassium Chloride 40 meq/ (Sodium Chloride) 1,020 mls @ 75 mls/hr IV .[id number] [facility] Last Admin: 06/13/18 13:31 Dose: 75 mls/hr Sucralfate (Carafate Oral Susp) 1 gm PO QID [facility] Last Admin: 06/13/18 13:31 Dose: Not Given - Labs Labs: 06/13/18 06:20 06/13/18 11:49 PT 16.0 SECONDS (9.7-12.2) H 06/13/18 06:20 INR 1.5 06/13/18 06:20 APTT 40 SECONDS (21-34) H 06/10/18 23:37 - Constitutional Appears: Chronically Ill - Head Exam Head Exam: NORMAL INSPECTION Additional comments: on Bipap - Eye Exam Eye Exam: EOMI - ENT Exam ENT Exam: Mucous Membranes Dry - Respiratory Exam Respiratory Exam: NORMAL BREATHING PATTERN. absent: Rales, Rhonchi, Wheezes - Cardiovascular Exam Cardiovascular Exam: REGULAR RHYTHM, +S1, +S2 - GI/Abdominal Exam GI & Abdominal Exam: Soft, Normal Bowel Sounds. absent: Distended, Firm, Guarding, Rigid, Tenderness, Rebound - Extremities Exam Extremities Exam: absent: Pedal Edema, Tenderness - Psychiatric Exam Psychiatric exam: Agitated, Anxious - Skin Skin Exam: Dry, Normal Color, Warm Assessment and Plan (1) Cardiac arrest Status: Acute (2) Respiratory failure Status: Acute (3) Seizure Status: Acute (4) GI bleeding Status: Acute (5) Hyponatremia Status: Acute Attending/Attestation - Attestation I have personally seen and examined this patient.: Yes I have fully participated in the care of the patient.: Yes I have reviewed all pertinent clinical information, including history, physical exam and plan: Yes Notes (Text): 1). Cardiopulmonary Arrest Assessment/Plan * off Levophed Drip * Cardiology Dr. Iglesias tourist information assistant-->help appreciated * PEA s/p ROSC NSR * Echocardiogram (06/12/18): ejection fraction: 45-50%, left ventricular diastolic function is abnormal. left atrium size looks normal right atrium size looks normal. trace to mild tricupsid regurgitaton 2). Hyponatremia Assessment/Plan * Nephrology Dr. Shafer on board-->help appreciated * Secondary to Alcohol Abuse * Received 3 NS boluses in ER * Improving. Today 125 from 119. * Seizure precautions * Improving 3). Hypokalemia/Hypomagnesemia Assessment/Plan * Being repleted by ICU 4). Metabolic Acidosis Assessment/Plan * Likely secondary to the Cadriopulmonary Arrest and GI bleed * Improving 5). Seizure Assessment/Plan * Neurology Dr. Richie Rubi on board-->help appreciated * Risk factor: heavy alcohol use and hyponatremia, hypomagnesium * Head CT (06/11/18): no acute intracranial abnormality. Chronic microvascular ischemic changes. sinus mucosal disease as above * He has a history of alcohol withdrawal seizures * Keppra 500 mg IV Q12H * Recommend EEG if mental status does not improve post extubation 6). Anemia likely secondary to GI Bleed History of Peptic Ulcer Disease Bleeding Ulcer Assessment/Plan * GI Dr. Ho on consult help appreciated * CT Chest/abdomen/pelvis (06/12/18): distended bowel suggesting an ileus. Markedly limited evaluation of the bowel without oral or intravenous contrast. Suggestion of prior Bilroth 2 procedure. Fluid filled dilatation of small bowel andproximal colon. Fluid filled dilatation of the small bowel and prozimal colon. Fluid in the descending colon without a sharp transition sozne. Portions of trasnverse colon were not well visualized. * NPO except medications today. Continue Protonix infusion, add liquid carafate , 1 gm via NGT qid. * Hgb stable this am s/p 2U PRBCs * Monitor H/H and transfuse as needed * Carafate 1g qid * s/p EGD POD2: 2 anastomotic ulcers with visible vessel s/p APC and 5 clips, one ulcer with visible vessel and adherent clot was not intervened on due to adverse location--->If pt develops further bleeding will need IR and Surgery on board, difficult to treat endoscopically * Monitor H/H * No Nsaids and strong history of alcohol 7). Hypocalcemia Assessment/Plan * Monitor 8). Acute Respiratory Failure Assessment/Plan * Extubated 06/12/18 * management per ICU * Patient to be placed on Bipap-->difficulty breathing unclear if related to rib fractures * noted unclear rib fractures * patient is on Zosyn to cover for pneumonia 9) Open Wounds on Sacrum Assessment/Plan * Turn [id number] * Wound care pending evaluation 10) Bilateral Anterior Rib and Sternal Fractures Assessment/Plan * noted on CT Chest * Secondary to CPR given cardiopulmonary arrest 11) Pneumonia Assessment/Plan * CT Chest 06/11/18: thinned walled cavity in the right upper lobe which may be the sequelae of prior infection 5mm subpleural nodule within the anterior right middle lobe. Focal consolidation within the inferior right middle lobe. Focal consolidation within the right lower love. Patchy ground glass opacities in both lungs which and nonspecific but may secondary to alectasis versus contusion versus pneumonitis. * Zosyn 3.375g IV Q8H (active since 06/11/18) 12) urinary tract infection * Zosyn 3.375g IV Q8H (active since 06/11/18) * repeat urine culture 13) Bacteremia * repeat blood culture collected-->f/u 14) Alcoholism * heavy use * on Ativan PRN and Precedex 15) Hypokalemia * repletion 16) Prophylactic measure * Protonix drip * Chemical anticoagulation held secondary to GI bleed * Turn [id number] * Aspiration precautions * Seizure precautions * Wound care on board Disposition: monitor respiratory status. Patient is on Bipap prior rib fractures from cpr/ACLS. Patient is on IV to cover for uti/pna; cultures have been repeated. Ammonia repeat given heavy alcohol hx. located of ulcer if bleeding recur may warrant general surgery/IR intervention keep monitoring.
--- NOTE | 2018-06-13 18:03 | CP.CCUPN ---
CCU Subjective - Physician Review Events Since Last Encounter (Free Text): 06/13/18 18:03 Patient with a cardiac arrest. Status post CPR. Most likely patient had a refracture, underlying the fire chest. Patient has a rectal bleeding. He is on BiPAP right now. Saturation is well. But the clinically patient is having difficulty in breathing. Will continue the current BiPAP support. May need reintubation. Will closely watch. CCU Objective - Vital Signs / Intake & Output Vital Signs (Last 4 hours): Vital Signs Pulse 06/13/18 16:50 95 H Intake and Output (Last 8hrs): Intake & Output 06/13/18 06/13/18 06/13/18 06:59 14:59 22:59 Intake Total 316.2 115.6 50 Output Total 275 50 Balance 41.2 65.6 50 Weight 112 lb 8 oz Intake: IV 50 50 Intake, IV Amount 266.2 115.6 LEFT IJ DISTAL PORT 150 100 LEFT IJ MEDIAL PORT 80 10 LEFT IJ PROXIMAL PORT 36.2 5.6 Left Forearm 0 Left Forearm#2 0 Output: Urine 275 50 Urethral (Griffith) 275 50 Other: # Bowel Movements 1 - Physical Exam Head: Positive for: Atraumatic, Normocephalic Pupils: Positive for: PERRL Extroacular Muscles: Positive for: EOMI Conjunctiva: Positive for: Normal Mouth: Positive for: Moist Mucous Membranes Nose (Internal): Positive for: Normal Inspection Neck: Positive for: Normal Range of Motion Respiratory/Chest: Positive for: Clear to Auscultation Cardiovascular: Positive for: Regular Rate and Rhythm, Normal S1, S2 Abdomen: Positive for: Normal Bowel Sounds. Negative for: Tenderness, Distention Upper Extremity: Positive for: Normal Inspection Lower Extremity: Positive for: Normal Inspection Neurological: Positive for: GCS=15, CN II-XII Intact Psychiatric: Positive for: Alert, Oriented x 3 - Medications Active Medications: Active Medications Generic Name Dose Route Start Last Admin Trade Name Freq PRN Reason Stop Dose Admin Piperacillin Sod/Tazobactam Sod 3.375 gm in 50 mls @ 100 mls/hr 06/11/18 02: 30 06/13/18 15:30 Zosyn 3.375 Gm Iv Premix IVPB 06/14/18 02:30 100 mls/hr Q6H MAYANK Administration Protocol Pantoprazole Sodium 80 mg/ 100 mls @ 10 mls/hr 06/11/18 13:15 06/13/18 15:41 Sodium Chloride IVPB 10 mls/hr .Q10H MAYANK Administration 8 MG/HR Levetiracetam 500 mg/ Dextrose 105 mls @ 420 mls/hr 06/11/18 07:30 06/13/18 06:44 IVPB 420 mls/hr Q12H MAYANK Administration Dexmedetomidine HCl 200 mcg/ 50 mls @ 2.63 mls/hr 06/12/18 22:47 06/13/18 15: 40 Sodium Chloride IV 0.4 mcg/kg/hr TITR PRN 5.27 mls/hr Restlessness Administration Protocol 0.2 MCG/KG/HR Potassium Chloride 40 meq/ 1,020 mls @ 75 mls/hr 06/13/18 13:00 06/13/18 13: 31 Sodium Chloride IV 75 mls/hr .[id number] MAYANK Administration Lorazepam 1 mg 06/13/18 17:15 06/13/18 17:21 Ativan IVP 1 mg Q4H PRN Administration Anxiety Sucralfate 1 gm 06/11/18 18:00 06/13/18 17:23 Carafate Oral Susp PO Not Given QID MAYANK - Patient Studies Lab Studies: Microbiology Studies 06/11/18 17:15 Blood Culture - Preliminary Blood-Venous NO GROWTH AFTER 48 HOURS 06/11/18 17:00 S.aureus & Coag-Neg Staph PNA FISH - Final Blood-Venous Blood Culture - Preliminary Gram Positive Cocci Gram Stain - Final 06/11/18 Unknown Urine Culture - Final Urine,Catheterized Acinetobacter Baumannii Lab Studies 06/13/18 06/13/18 06/13/18 Range/Units 11:49 11:17 06:20 WBC (4.8-10.8) K/uL RBC (4.40-5.90) Mil/uL Hgb (12.0-18.0) g/dL Hct (35.0-51.0) % MCV (80.0-94.0) fL MCH (27.0-31.0) pg MCHC (33.0-37.0) g/dL RDW (11.5-14.5) % Plt Count (130-400) K/uL MPV (7.2-11.7) fL Neut % (Auto) (50.0-75.0) % Lymph % (Auto) (20.0-40.0) % Ferry % (Auto) (0.0-10.0) % Eos % (Auto) (0.0-4.0) % Baso % (Auto) (0.0-2.0) % Neut # (Auto) (1.8-7.0) K/uL Lymph # (Auto) (1.0-4.3) K/uL Ferry # (Auto) (0.0-0.8) K/uL Eos # (Auto) (0.0-0.7) K/uL Baso # (Auto) (0.0-0.2) K/uL Neutrophils % (Manual) (50-75) % Band Neutrophils % (0-2) % Lymphocytes % (Manual) (20-40) % Reactive Lymphs % (0-0) % Monocytes % (Manual) (0-10) % Platelet Estimate (NORMAL) Hypochromasia (manual) Poikilocytosis (manual Anisocytosis (manual) Target Cells Tear Drop Cells Walnut Cells PT (9.7-12.2) SECONDS INR Puncture Site Rba pCO2 32 L (35-45) mm/Hg pO2 75 L (80-100) mm/Hg HCO3 22.7 (21-28) mmol/L ABG pH 7.42 (7.35-7.45) ABG Total CO2 21.8 L (22-28) mmol/L ABG O2 Saturation 97.2 (95-98) % ABG Base Excess -2.8 L (-2.0-3.0) mmol/L Bob Test Na ABG Potassium 2.9 L (3.6-5.2) mmol/L A-a O2 Difference 242.0 mm/Hg Respiratory Index 3.2 Glucose 99 (75-110) mg/dl Lactate 0.7 (0.7-2.1) mmol/L Vent Mode Bipap FiO2 50.0 % Inspiratory BiPAP 16 Expiratory BiPAP 8 Sodium 128 L 128.0 L (132-148) mmol/L Potassium 3.0 L (3.6-5.2) mmol/L Chloride 95 L 99.0 (98-107) mmol/L Carbon Dioxide 25 (22-30) mmol/L Anion Gap 11 (10-20) BUN 6 L (9-20) mg/dL Creatinine 0.7 L (0.8-1.5) mg/dL Est GFR ( Amer) > 60 Est GFR (Non-Af Amer) > 60 POC Glucose (mg/dL) (65-110) mg/dL Random Glucose 95 (75-110) mg/dL Calcium 7.8 L (8.6-10.4) mg/dl Magnesium 2.1 (1.6-2.3) mg/dL Total Bilirubin 0.6 (0.2-1.3) mg/dL AST 56 (17-59) U/L ALT 49 (21-72) U/L Alkaline Phosphatase 72 (38-126) U/L Ammonia < 9 L (9-33) umol/L Total Protein 5.5 L (6.3-8.3) g/dL Albumin 2.8 L (3.5-5.0) g/dL Globulin 2.8 (2.2-3.9) gm/dL Albumin/Globulin Ratio 1.0 (1.0-2.1) Arterial Blood Potassium 2.9 L (3.6-5.2) mmol/L 06/13/18 06/13/18 06/13/18 Range/Units 06:20 06:20 06:20 WBC 7.5 (4.8-10.8) K/uL RBC 2.67 L (4.40-5.90) Mil/uL Hgb 8.5 L (12.0-18.0) g/dL Hct 23.8 L (35.0-51.0) % MCV 88.8 (80.0-94.0) fL MCH 31.9 H (27.0-31.0) pg MCHC 35.9 (33.0-37.0) g/dL RDW 17.2 H (11.5-14.5) % Plt Count 99 L (130-400) K/uL MPV 7.6 (7.2-11.7) fL Neut % (Auto) 77.8 H (50.0-75.0) % Lymph % (Auto) 9.0 L (20.0-40.0) % Ferry % (Auto) 12.5 H (0.0-10.0) % Eos % (Auto) 0.5 (0.0-4.0) % Baso % (Auto) 0.2 (0.0-2.0) % Neut # (Auto) 5.9 (1.8-7.0) K/uL Lymph # (Auto) 0.7 L (1.0-4.3) K/uL Ferry # (Auto) 0.9 H (0.0-0.8) K/uL Eos # (Auto) 0.0 (0.0-0.7) K/uL Baso # (Auto) 0.0 (0.0-0.2) K/uL Neutrophils % (Manual) 75 (50-75) % Band Neutrophils % 2 (0-2) % Lymphocytes % (Manual) 10 L (20-40) % Reactive Lymphs % 1 H (0-0) % Monocytes % (Manual) 12 H (0-10) % Platelet Estimate Decreased L (NORMAL) Hypochromasia (manual) Slight Poikilocytosis (manual Slight Anisocytosis (manual) Slight Target Cells Slight Tear Drop Cells Slight Walnut Cells Slight PT 16.0 H (9.7-12.2) SECONDS INR 1.5 Puncture Site pCO2 (35-45) mm/Hg pO2 (80-100) mm/Hg HCO3 (21-28) mmol/L ABG pH (7.35-7.45) ABG Total CO2 (22-28) mmol/L ABG O2 Saturation (95-98) % ABG Base Excess (-2.0-3.0) mmol/L Bob Test ABG Potassium (3.6-5.2) mmol/L A-a O2 Difference mm/Hg Respiratory Index Glucose (75-110) mg/dl Lactate (0.7-2.1) mmol/L Vent Mode FiO2 % Inspiratory BiPAP Expiratory BiPAP Sodium 127 L (132-148) mmol/L Potassium 2.5 L* (3.6-5.2) mmol/L Chloride 95 L (98-107) mmol/L Carbon Dioxide 24 (22-30) mmol/L Anion Gap 11 (10-20) BUN 8 L (9-20) mg/dL Creatinine 0.7 L (0.8-1.5) mg/dL Est GFR ( Amer) > 60 Est GFR (Non-Af Amer) > 60 POC Glucose (mg/dL) (65-110) mg/dL Random Glucose 88 (75-110) mg/dL Calcium 7.6 L (8.6-10.4) mg/dl Magnesium 1.2 L (1.6-2.3) mg/dL Total Bilirubin 0.7 (0.2-1.3) mg/dL AST 59 (17-59) U/L ALT 50 (21-72) U/L Alkaline Phosphatase 69 (38-126) U/L Ammonia (9-33) umol/L Total Protein 5.3 L (6.3-8.3) g/dL Albumin 2.6 L (3.5-5.0) g/dL Globulin 2.7 (2.2-3.9) gm/dL Albumin/Globulin Ratio 1.0 (1.0-2.1) Arterial Blood Potassium (3.6-5.2) mmol/L 06/12/18 06/10/18 Range/Units 21:43 23:20 WBC (4.8-10.8) K/uL RBC (4.40-5.90) Mil/uL Hgb (12.0-18.0) g/dL Hct (35.0-51.0) % MCV (80.0-94.0) fL MCH (27.0-31.0) pg MCHC (33.0-37.0) g/dL RDW (11.5-14.5) % Plt Count (130-400) K/uL MPV (7.2-11.7) fL Neut % (Auto) (50.0-75.0) % Lymph % (Auto) (20.0-40.0) % Ferry % (Auto) (0.0-10.0) % Eos % (Auto) (0.0-4.0) % Baso % (Auto) (0.0-2.0) % Neut # (Auto) (1.8-7.0) K/uL Lymph # (Auto) (1.0-4.3) K/uL Ferry # (Auto) (0.0-0.8) K/uL Eos # (Auto) (0.0-0.7) K/uL Baso # (Auto) (0.0-0.2) K/uL Neutrophils % (Manual) (50-75) % Band Neutrophils % (0-2) % Lymphocytes % (Manual) (20-40) % Reactive Lymphs % (0-0) % Monocytes % (Manual) (0-10) % Platelet Estimate (NORMAL) Hypochromasia (manual) Poikilocytosis (manual Anisocytosis (manual) Target Cells Tear Drop Cells Tra Cells PT (9.7-12.2) SECONDS INR Puncture Site pCO2 (35-45) mm/Hg pO2 (80-100) mm/Hg HCO3 (21-28) mmol/L ABG pH (7.35-7.45) ABG Total CO2 (22-28) mmol/L ABG O2 Saturation (95-98) % ABG Base Excess (-2.0-3.0) mmol/L Bob Test ABG Potassium (3.6-5.2) mmol/L A-a O2 Difference mm/Hg Respiratory Index Glucose (75-110) mg/dl Lactate (0.7-2.1) mmol/L Vent Mode FiO2 % Inspiratory BiPAP Expiratory BiPAP Sodium 126 L (132-148) mmol/L Potassium 2.7 L (3.6-5.2) mmol/L Chloride 92 L (98-107) mmol/L Carbon Dioxide 22 (22-30) mmol/L Anion Gap 15 (10-20) BUN 9 (9-20) mg/dL Creatinine 0.7 L (0.8-1.5) mg/dL Est GFR ( Amer) > 60 Est GFR (Non-Af Amer) > 60 POC Glucose (mg/dL) 158 H (65-110) mg/dL Random Glucose 110 (75-110) mg/dL Calcium 7.6 L (8.6-10.4) mg/dl Magnesium (1.6-2.3) mg/dL Total Bilirubin (0.2-1.3) mg/dL AST (17-59) U/L ALT (21-72) U/L Alkaline Phosphatase (38-126) U/L Ammonia (9-33) umol/L Total Protein (6.3-8.3) g/dL Albumin (3.5-5.0) g/dL Globulin (2.2-3.9) gm/dL Albumin/Globulin Ratio (1.0-2.1) Arterial Blood Potassium (3.6-5.2) mmol/L Laboratory Results - last 24 hr 06/10/18 06/12/18 06/13/18 23:20 21:43 06:20 WBC 7.5 RBC 2.67 L Hgb 8.5 L Hct 23.8 L MCV 88.8 MCH 31.9 H MCHC 35.9 RDW 17.2 H Plt Count 99 L MPV 7.6 Neut % (Auto) 77.8 H Lymph % (Auto) 9.0 L Ferry % (Auto) 12.5 H Eos % (Auto) 0.5 Baso % (Auto) 0.2 Neut # (Auto) 5.9 Lymph # (Auto) 0.7 L Ferry # (Auto) 0.9 H Eos # (Auto) 0.0 Baso # (Auto) 0.0 Neutrophils % (Manual) 75 Band Neutrophils % 2 Lymphocytes % (Manual) 10 L Reactive Lymphs % 1 H Monocytes % (Manual) 12 H Platelet Estimate Decreased L Hypochromasia (manual) Slight Poikilocytosis (manual Slight Anisocytosis (manual) Slight Target Cells Slight Tear Drop Cells Slight Walnut Cells Slight PT INR Puncture Site pCO2 pO2 HCO3 ABG pH ABG Total CO2 ABG O2 Saturation ABG Base Excess Bob Test ABG Potassium A-a O2 Difference Respiratory Index Glucose Lactate Vent Mode FiO2 Inspiratory BiPAP Expiratory BiPAP Sodium 126 L Potassium 2.7 L Chloride 92 L Carbon Dioxide 22 Anion Gap 15 BUN 9 Creatinine 0.7 L Est GFR ( Amer) > 60 Est GFR (Non-Af Amer) > 60 POC Glucose (mg/dL) 158 H Random Glucose 110 Calcium 7.6 L Magnesium Total Bilirubin AST ALT Alkaline Phosphatase Ammonia Total Protein Albumin Globulin Albumin/Globulin Ratio Arterial Blood Potassium 06/13/18 06/13/18 06/13/18 06:20 06:20 06:20 WBC RBC Hgb Hct MCV MCH MCHC RDW Plt Count MPV Neut % (Auto) Lymph % (Auto) Ferry % (Auto) Eos % (Auto) Baso % (Auto) Neut # (Auto) Lymph # (Auto) Ferry # (Auto) Eos # (Auto) Baso # (Auto) Neutrophils % (Manual) Band Neutrophils % Lymphocytes % (Manual) Reactive Lymphs % Monocytes % (Manual) Platelet Estimate Hypochromasia (manual) Poikilocytosis (manual Anisocytosis (manual) Target Cells Tear Drop Cells Walnut Cells PT 16.0 H INR 1.5 Puncture Site pCO2 pO2 HCO3 ABG pH ABG Total CO2 ABG O2 Saturation ABG Base Excess Bob Test ABG Potassium A-a O2 Difference Respiratory Index Glucose Lactate Vent Mode FiO2 Inspiratory BiPAP Expiratory BiPAP Sodium 127 L Potassium 2.5 L* Chloride 95 L Carbon Dioxide 24 Anion Gap 11 BUN 8 L Creatinine 0.7 L Est GFR ( Amer) > 60 Est GFR (Non-Af Amer) > 60 POC Glucose (mg/dL) Random Glucose 88 Calcium 7.6 L Magnesium 1.2 L Total Bilirubin 0.7 AST 59 ALT 50 Alkaline Phosphatase 69 Ammonia < 9 L Total Protein 5.3 L Albumin 2.6 L Globulin 2.7 Albumin/Globulin Ratio 1.0 Arterial Blood Potassium 06/13/18 06/13/18 11:17 11:49 WBC RBC Hgb Hct MCV MCH MCHC RDW Plt Count MPV Neut % (Auto) Lymph % (Auto) Ferry % (Auto) Eos % (Auto) Baso % (Auto) Neut # (Auto) Lymph # (Auto) Ferry # (Auto) Eos # (Auto) Baso # (Auto) Neutrophils % (Manual) Band Neutrophils % Lymphocytes % (Manual) Reactive Lymphs % Monocytes % (Manual) Platelet Estimate Hypochromasia (manual) Poikilocytosis (manual Anisocytosis (manual) Target Cells Tear Drop Cells Walnut Cells PT INR Puncture Site Rba pCO2 32 L pO2 75 L HCO3 22.7 ABG pH 7.42 ABG Total CO2 21.8 L ABG O2 Saturation 97.2 ABG Base Excess -2.8 L Bob Test Na ABG Potassium 2.9 L A-a O2 Difference 242.0 Respiratory Index 3.2 Glucose 99 Lactate 0.7 Vent Mode Bipap FiO2 50.0 Inspiratory BiPAP 16 Expiratory BiPAP 8 Sodium 128.0 L 128 L Potassium 3.0 L Chloride 99.0 95 L Carbon Dioxide 25 Anion Gap 11 BUN 6 L Creatinine 0.7 L Est GFR ( Amer) > 60 Est GFR (Non-Af Amer) > 60 POC Glucose (mg/dL) Random Glucose 95 Calcium 7.8 L Magnesium 2.1 Total Bilirubin 0.6 AST 56 ALT 49 Alkaline Phosphatase 72 Ammonia Total Protein 5.5 L Albumin 2.8 L Globulin 2.8 Albumin/Globulin Ratio 1.0 Arterial Blood Potassium 2.9 L Fingerstick Blood Sugar Results: 158 Critical Care Progress Note - Nutrition Nutrition: Nutrition Category Date Time Status NPO Diet [DIET] Diets 06/11/18 Breakfast Active
[2018-06-14 01:05] LABS: BLOOD UREA NITROGEN 5 mg/dL (9-20); CALCIUM 8.1 mg/dl (8.6-10.4); GFR NON-AFRICAN AMERICAN > 60
[2018-06-14] MEDS: Pantoprazole 80 MG in Sodium Chloride 0.9% 100 ML IVPB SCH (02:44)
[2018-06-14] MEDS: Piperacill/Tazo 3.375gm in Dex 3.375 GM/50 ML BAG IVPB SCH ×4 (02:45→23:04)
[2018-06-14] MEDS: Dexmedetomidine Hydrochloride 200 MCG in Sodium Chloride 0.9% 48 ML IV PRN ×3 (02:45→13:45)
[2018-06-14 05:35] LABS: ABG ALLEN TEST POS; ARTERIAL BLOOD GAS HCO3 19.8 mmol/L (21-28); ARTERIAL BLOOD GAS O2 SAT 98.7 % (95-98); ARTERIAL BLOOD GAS PCO2 29 mm/Hg (35-45); ARTERIAL BLOOD GAS PH 7.39 (7.35-7.45); ARTERIAL BLOOD GAS PO2 101 mm/Hg (80-100); ARTERIAL BLOOD GAS TCO2 18.5 mmol/L (22-28)
[2018-06-14 06:24] LABS: BASO % 0.2 % (0.0-2.0); EOS # 0.1 K/uL (0.0-0.7); EOS % 0.8 % (0.0-4.0); LYMPH # 1.2 K/uL (1.0-4.3); LYMPH % 13.3 % (20.0-40.0); MEAN CORPUSCULAR HGB CONC 35.2 g/dL (33.0-37.0); MEAN PLATELET VOLUME 7.5 fL (7.2-11.7); MONO # 1.2 K/uL (0.0-0.8); NEUT # 6.2 K/uL (1.8-7.0); NEUT % 71.7 % (50.0-75.0); RBC 2.51 Mil/uL (4.40-5.90); RED CELL DISTRIBUTION WIDTH 17.5 % (11.5-14.5); WHITE BLOOD COUNT 8.7 K/uL (4.8-10.8)
[2018-06-14 06:38] LABS: ALB/GLOB RATIO 0.8 (1.0-2.1); ALBUMIN 2.5 g/dL (3.5-5.0); ALT/SGPT 41 U/L (21-72); AST/SGOT 31 U/L (17-59); BLOOD UREA NITROGEN 6 mg/dL (9-20); CALCIUM 8.1 mg/dl (8.6-10.4); GFR NON-AFRICAN AMERICAN > 60
--- NOTE | 2018-06-14 07:30 | CP.PCM.PN ---
<ConcepcionbessieDarcyricky - Last Filed: 06/14/18 08:44> Subjective - Date & Time of Evaluation Date of Evaluation: 06/14/18 Time of Evaluation: 07:00 - Subjective Subjective: PGY-4 GI Fellow Prog Note Pt lying in bed sleeping when seen this AM. Awakes to light tactile stimulation , mumbling and unable to carry-on conversation. Nursing reports 2x, small, loose BMs overnight. Unable to obtain ROS due to clinical condition. Objective - Vital Signs/Intake and Output Vital Signs (last 24 hours): Temp Pulse Resp BP Pulse Ox 98 F 79 26 H 129/64 100 06/14/18 04:00 06/14/18 07:04 06/14/18 07:04 06/14/18 07:04 06/14/18 07:04 Intake and Output: 06/14/18 06/14/18 06:59 18:59 Intake Total 1343.3 94.2 Output Total 750 65 Balance 593.3 29.2 - Medications Medications: Current Medications Pantoprazole Sodium 80 mg/ (Sodium Chloride) 100 mls @ 10 mls/hr IVPB .Q10H MAYANK PRN Reason: 8 MG/HR Last Admin: 06/14/18 02:44 Dose: 10 mls/hr Levetiracetam 500 mg/ Dextrose 105 mls @ 420 mls/hr IVPB Q12H MAYANK Last Admin: 06/13/18 19:39 Dose: 420 mls/hr Dexmedetomidine HCl 200 mcg/ (Sodium Chloride) 50 mls @ 2.63 mls/hr IV TITR PRN ; Protocol; 0.2 MCG/KG/HR PRN Reason: Restlessness Last Admin: 06/14/18 02:45 Dose: 0.7 mcg/kg/hr, 9.23 mls/hr Potassium Chloride 40 meq/ (Sodium Chloride) 1,020 mls @ 75 mls/hr IV .[id number] MAYANK Last Admin: 06/14/18 02:42 Dose: Not Given Lorazepam (Ativan) 1 mg IVP Q4H PRN PRN Reason: Anxiety Last Admin: 06/13/18 17:21 Dose: 1 mg Sucralfate (Carafate Oral Susp) 1 gm PO QID MAYANK Last Admin: 06/13/18 21:09 Dose: 1 gm - Labs Labs: 06/14/18 06:16 06/14/18 06:15 PT 16.0 SECONDS (9.7-12.2) H 06/13/18 06:20 INR 1.5 06/13/18 06:20 APTT 40 SECONDS (21-34) H 06/10/18 23:37 - Constitutional Appears: No Acute Distress, Confused, Chronically Ill - Head Exam Head Exam: ATRAUMATIC, NORMAL INSPECTION - Eye Exam Eye Exam: absent: Conjunctival injection, Scleral icterus - ENT Exam ENT Exam: Mucous Membranes Dry, Normal External Ear Exam. absent: Mucous Membranes Moist - Respiratory Exam Respiratory Exam: Accessory Muscle Use (some abdominal respirations) Additional comments: Diffuse coarse breath sounds bilaterally - Cardiovascular Exam Cardiovascular Exam: REGULAR RHYTHM, RRR - GI/Abdominal Exam GI & Abdominal Exam: Soft, Hypoactive Bowel Sounds. absent: Distended, Firm, Guarding, Rigid, Tenderness Assessment and Plan - Assessment and Plan (Free Text) Assessment: 52yM with a h/o of alcohol abuse, seizure disorder with medication noncompliance , PUD with GI bleed and Bilroth II 5yrs ago at [facility] [place], COPD. Pt presenting to the ER s/p PEA cardiopulmonary arrest. GI was consulted for anemia and GI bleeding. # Anemia, Upper GI Bleed, h/o Bilroth II: s/p EGD with PUD and ulcers with stigmata of recent hemorrhage. FC IIa (s/p APC and clips) and FC IIb (not intervened due to adverse location endoscopically. # Cardiopulmonary Arrest: Intubated on admission, since extubated and on BiPAP # Metabolic Acidosis, Hypokalemia, Hyponatremia: Pt with significant electrolyte abnormalities being corrected by Nephrology and Hospitalist # Seizure # Alcohol abuse Plan: -Cont supportive care, extubated, currently BiPAP -Active GI bleeding resolved for now, off pressors, Hgb roughly stable, s/p 2U PRBCs on 06/11 -Cont to monitor H&H -Carafate 1g qid -IV PPI drip to 40 mg IV BID today -If pt develops further bleeding will need IR and Surgery on board, difficult to treat endoscopically -TIME STUDY TECHNICIAN consult ordered to eval for possible PO intake\ --- If OK to take PO, would start Clear Liq Diet -Cardiology following s/p PEA/Asystole arrest -Will continue to follow pt closely Pt seen and examined with Dr. Ho <Kenrick Ho Y - Last Filed: 06/14/18 09:03> Objective - Vital Signs/Intake and Output Vital Signs (last 24 hours): Temp Pulse Resp BP Pulse Ox 98.4 F 75 26 H 129/64 100 06/14/18 08:00 06/14/18 07:36 06/14/18 07:04 06/14/18 07:04 06/14/18 07:04 Intake and Output: 06/14/18 06/14/18 06:59 18:59 Intake Total 1343.3 113.4 Output Total 750 65 Balance 593.3 48.4 - Medications Medications: Current Medications Guaifenesin (Mucinex La) 600 mg PO BID MAYANK Levetiracetam 500 mg/ Dextrose 105 mls @ 420 mls/hr IVPB Q12H [facility] Last Admin: 06/13/18 19:39 Dose: 420 mls/hr Dexmedetomidine HCl 200 mcg/ (Sodium Chloride) 50 mls @ 2.63 mls/hr IV TITR PRN ; Protocol; 0.2 MCG/KG/HR PRN Reason: Restlessness Last Admin: 06/14/18 02:45 Dose: 0.7 mcg/kg/hr, 9.23 mls/hr Potassium Chloride 40 meq/ (Sodium Chloride) 1,020 mls @ 75 mls/hr IV .[id number] [facility] Last Admin: 06/14/18 02:42 Dose: Not Given Lorazepam (Ativan) 1 mg IVP Q4H PRN PRN Reason: Anxiety Last Admin: 06/13/18 17:21 Dose: 1 mg Pantoprazole Sodium (Protonix Inj) 40 mg IVP Q12H [facility] Sucralfate (Carafate Oral Susp) 1 gm PO QID [facility] Last Admin: 06/13/18 21:09 Dose: 1 gm - Labs Labs: 06/14/18 06:16 06/14/18 06:15 PT 16.0 SECONDS (9.7-12.2) H 06/13/18 06:20 INR 1.5 06/13/18 06:20 APTT 40 SECONDS (21-34) H 06/10/18 23:37 Attending/Attestation - Attestation I have personally seen and examined this patient.: Yes I have fully participated in the care of the patient.: Yes I have reviewed all pertinent clinical information, including history, physical exam and plan: Yes Notes (Text): 06/14/18 09:00 I have seen and examined patient with GI fellow. No acute events overnight, he had two small dark bowel movements. He remains sedated on BIPAP in intensive care unit. There is no reported abdominal pain, nausea, vomiting. Review of vitals from today are normal. ETOH abuse Seizure disorder Cardiac arrest PUD Anemia, rectal bleeding - s/p EGD showing two anastomotic ulcers s/p endoscopic therapy of one ulcer - NPO - Suggest speech/swallow evaluation, ideally would favor beginning patient on clear liquid diet if possible - Continue with PPI therapy - H/H stable, continue to monitor and transfuse as necessary - Continue with carafate - Will continue to monitor patient clinical course
--- NOTE | 2018-06-14 09:14 | CP.PCM.PN ---
Subjective - Date & Time of Evaluation Date of Evaluation: 06/14/18 Time of Evaluation: 09:00 - Subjective Subjective: Hospitalist Progress Note Patient was seen and examined at 9 AM 06/14/18 ICU Bed 15 Patient is awake and on BiPap and asking for some water. Explained that we needed a swallow evaluation first to make sure that he does not aspirate into the lungs. Spoke with Nurse Maik and he will contact Speech Therapist for the swallow evaluation and if cleared then patient should be started on the following: Carafate Clear liquid diet Zosyn reordered considering findings on CT Chest 06/11/18 Repeat Blood and Urine Cultures are negative HgB/Hct are relatively stable See Assessment and Plans below for further details General:Awake and on Bipap, patient is agitated and not cooperating with exam HEENT: NCA, Pupils are round and reactive to light, NO lymphadenopathy, NO thyromegaly Cardio: heart sounds are very faint however this exam is limited (NS1 and NS2, NO M/R/G) Respiratory: Course breath sounds difusely GI: BSx4, Soft, NO HSM, NO guarding/rebound tenderness, ND Ext: Radial pulses are strong and equal, Pedal pulses are weak, NO edema, Capillary Refill is 3 seconds, Bilateral lower legs with multiple round dry eschars, 1). Cardiopulmonary Arrest Assessment/Plan * Off Levophed Drip * Cardiology Dr. Iglesias extension agent-->help appreciated * PEA s/p ROSC NSR * Echocardiogram (06/12/18): ejection fraction: 45-50%, left ventricular diastolic function is abnormal. left atrium size looks normal right atrium size looks normal. trace to mild tricupsid regurgitaton 2). Hyponatremia Assessment/Plan * Nephrology Dr. Shafer on board-->help appreciated * Secondary to Alcohol Abuse * Received 3 NS boluses in ER * Seizure precautions * Normalized 3). Hypokalemia/Hypomagnesemia/Hypophosphotemia Assessment/Plan * Currently normal. Replete as needed 4). Metabolic Acidosis Assessment/Plan * Likely secondary to the Cadriopulmonary Arrest and GI bleed * Improving 5). Seizure Assessment/Plan * Neurology Dr. Richie Rubi on board-->help appreciated * Risk factor: heavy alcohol use and hyponatremia, hypomagnesium * Head CT (06/11/18): no acute intracranial abnormality. Chronic microvascular ischemic changes. sinus mucosal disease as above * He has a history of alcohol withdrawal seizures * Keppra 500 mg IV Q12H * Recommend EEG if mental status does not improve post extubation 6). Anemia likely secondary to GI Bleed History of Peptic Ulcer Disease Bleeding Ulcer Assessment/Plan * GI Dr. Ho on consult help appreciated * CT Chest/abdomen/pelvis (06/12/18): distended bowel suggesting an ileus. Markedly limited evaluation of the bowel without oral or intravenous contrast. Suggestion of prior Bilroth 2 procedure. Fluid filled dilatation of small bowel andproximal colon. Fluid filled dilatation of the small bowel and prozimal colon. Fluid in the descending colon without a sharp transition sozne. Portions of trasnverse colon were not well visualized. * NPO except medications today. Continue Protonix infusion, add liquid carafate , 1 gm via NGT qid. * Hgb stable this am s/p 2U PRBCs * Monitor H/H and transfuse as needed * Carafate 1g qid * S/P EGD POD2: 2 anastomotic ulcers with visible vessel s/p APC and 5 clips, one ulcer with visible vessel and adherent clot was not intervened on due to adverse location--->If pt develops further bleeding will need IR and Surgery on board, difficult to treat endoscopically * Monitor H/H * No NSAIDS and strong history of alcohol abuse 7). Hypocalcemia Assessment/Plan * Monitor 8). Acute Respiratory Failure Assessment/Plan * Extubated 06/12/18 * >anagement per ICU * Patient placed on Bipap-->difficulty breathing unclear if related to rib fractures * Noted unclear rib fractures * Patient is on Zosyn to cover for pneumonia 9) Open Wounds on Sacrum Assessment/Plan * Turn [id number] * Wound care pending evaluation 10) Bilateral Anterior Rib and Sternal Fractures Assessment/Plan * Noted on CT Chest * Secondary to CPR given cardiopulmonary arrest 11) Pneumonia Assessment/Plan * CT Chest 06/11/18: thinned walled cavity in the right upper lobe which may be the sequelae of prior infection 5mm subpleural nodule within the anterior right middle lobe. Focal consolidation within the inferior right middle lobe. Focal consolidation within the right lower lobe. Patchy ground glass opacities in both lungs which and nonspecific but may secondary to alectasis versus contusion versus pneumonitis. * Zosyn 3.375g IV Q8H (active since 06/11/18) 12) Urinary tract infection * Zosyn 3.375g IV Q8H (active since 06/11/18) * Repeat urine culture 06/13/18 showed NO growth 13) Bacteremia * Repeat blood culture 06/12/18 is negative to date 14) Alcoholism * Hx heavy use * On Ativan PRN and Precedex 15) Prophylactic measure * Protonix 40 mg IV Q12H * Chemical anticoagulation held secondary to GI bleed * Turn [id number] * Aspiration precautions * Seizure precautions * Wound care on board Disposition: monitor respiratory status. Patient is on Bipap prior rib fractures from CPR/ACLS. Patient is on Zosyn to cover for the UTI/PNA; Blood and Urine Cultures have been repeated and they have been negative to date. Repeat Ammonia level is low. Location of gastric ulcer may warrant general surgery/IR intervention if bleeding should recur therefore keep monitoring the HgB/Hct. Prem Noland D.O. Objective - Vital Signs/Intake and Output Vital Signs (last 24 hours): Temp Pulse Resp BP Pulse Ox 98.4 F 75 26 H 129/64 100 06/14/18 08:00 06/14/18 07:36 06/14/18 07:04 06/14/18 07:04 06/14/18 07:04 Intake and Output: 06/14/18 06/14/18 06:59 18:59 Intake Total 1343.3 113.4 Output Total 750 65 Balance 593.3 48.4 - Medications Medications: Current Medications Guaifenesin (Mucinex La) 600 mg PO BID [facility] Levetiracetam 500 mg/ Dextrose 105 mls @ 420 mls/hr IVPB Q12H [facility] Last Admin: 06/13/18 19:39 Dose: 420 mls/hr Dexmedetomidine HCl 200 mcg/ (Sodium Chloride) 50 mls @ 2.63 mls/hr IV TITR PRN ; Protocol; 0.2 MCG/KG/HR PRN Reason: Restlessness Last Admin: 06/14/18 02:45 Dose: 0.7 mcg/kg/hr, 9.23 mls/hr Potassium Chloride 40 meq/ (Sodium Chloride) 1,020 mls @ 75 mls/hr IV .[id number] [facility] Last Admin: 06/14/18 02:42 Dose: Not Given Lorazepam (Ativan) 1 mg IVP Q4H PRN PRN Reason: Anxiety Last Admin: 06/13/18 17:21 Dose: 1 mg Pantoprazole Sodium (Protonix Inj) 40 mg IVP Q12 [facility] Sucralfate (Carafate Oral Susp) 1 gm PO QID [facility] Last Admin: 06/13/18 21:09 Dose: 1 gm - Labs Labs: 06/14/18 06:16 06/14/18 06:15 PT 16.0 SECONDS (9.7-12.2) H 06/13/18 06:20 INR 1.5 06/13/18 06:20 APTT 40 SECONDS (21-34) H 06/10/18 23:37
--- NOTE | 2018-06-14 09:24 | CP.PCM.PN ---
<Gaurav Chaves - Last Filed: 06/14/18 13:26> Subjective - Date & Time of Evaluation Date of Evaluation: 06/14/18 Time of Evaluation: 09:23 - Subjective Subjective: Progress Note for 's Service Patient seen and examined at bedside. Per nursing no acute events occurred overnight. ROS unobtainable due to patient's current clinical condition. Objective - Vital Signs/Intake and Output Vital Signs (last 24 hours): Temp Pulse Resp BP Pulse Ox 98.4 F 75 26 H 129/64 100 06/14/18 08:00 06/14/18 07:36 06/14/18 07:04 06/14/18 07:04 06/14/18 07:04 Intake and Output: 06/14/18 06/14/18 06:59 18:59 Intake Total 1343.3 113.4 Output Total 750 65 Balance 593.3 48.4 - Medications Medications: Current Medications Guaifenesin (Mucinex La) 600 mg PO BID [facility] Levetiracetam 500 mg/ Dextrose 105 mls @ 420 mls/hr IVPB Q12H [facility] Last Admin: 06/13/18 19:39 Dose: 420 mls/hr Dexmedetomidine HCl 200 mcg/ (Sodium Chloride) 50 mls @ 2.63 mls/hr IV TITR PRN ; Protocol; 0.2 MCG/KG/HR PRN Reason: Restlessness Last Admin: 06/14/18 02:45 Dose: 0.7 mcg/kg/hr, 9.23 mls/hr Potassium Chloride 40 meq/ (Sodium Chloride) 1,020 mls @ 75 mls/hr IV .[id number] [facility] [place] Last Admin: 06/14/18 02:42 Dose: Not Given Lorazepam (Ativan) 1 mg IVP Q4H PRN PRN Reason: Anxiety Last Admin: 06/13/18 17:21 Dose: 1 mg Pantoprazole Sodium (Protonix Inj) 40 mg IVP Q12 [facility] [place] Sucralfate (Carafate Oral Susp) 1 gm PO QID [facility] [place] Last Admin: 06/13/18 21:09 Dose: 1 gm - Labs Labs: 06/14/18 06:16 06/14/18 06:15 PT 16.0 SECONDS (9.7-12.2) H 06/13/18 06:20 INR 1.5 06/13/18 06:20 APTT 40 SECONDS (21-34) H 06/10/18 23:37 - Head Exam Head Exam: ATRAUMATIC, NORMAL INSPECTION, NORMOCEPHALIC - Eye Exam Eye Exam: EOMI, Normal appearance, PERRL Pupil Exam: NORMAL ACCOMODATION, PERRL. absent: Irregular, Unequal - ENT Exam ENT Exam: Mucous Membranes Moist, Normal Oropharynx - Respiratory Exam Respiratory Exam: Clear to Ausculation Bilateral, NORMAL BREATHING PATTERN. absent: Prolonged Expiratory Phase - GI/Abdominal Exam GI & Abdominal Exam: Soft, Normal Bowel Sounds. absent: Hyperactive Bowel Sounds - Extremities Exam Extremities Exam: Normal Inspection. absent: Joint Swelling, Pedal Edema - Back Exam Back Exam: NORMAL INSPECTION. absent: paraspinal tenderness - Neurological Exam Neurological Exam: Altered - Psychiatric Exam Psychiatric exam: Normal Affect, Normal Mood - Skin Skin Exam: Dry, Intact Assessment and Plan - Assessment and Plan (Free Text) Plan: Assessment and Plan (1) Hyponatremia Improving Correction faster than our goal (no more than ~16 meq rise in 48 hrs Na 134 today. Will continue to monitor with serial CMP's NS@75mls/hr (2) Cardiac arrest No longer hypotensive, off pressors, extubated. Possible re-extuabtion in the future. (3) Hypokalemia Resolved Continue to replenish, goal 4.0 in the setting of recent cardiac arrest; K 4.5 today. Will monitor with serial CMP's. 4.Hypomagnesmia Resolved. Repeat Mg level in the A.M. Continue to replenish. Will monitor with serial CMP's. 5. Hypophosphatemia Resolved. Continue to replenish as needed. 6.Alcoholism -heavy use -on Ativan PRN and Precedex All management per . Gaurav Chaves, PGY-2 <Messi Shafer - Last Filed: 06/15/18 00:18> Objective - Vital Signs/Intake and Output Vital Signs (last 24 hours): Temp Pulse Resp BP Pulse Ox 98.2 F 95 H 37 H 176/92 H 100 06/14/18 20:00 06/14/18 22:20 06/14/18 22:20 06/14/18 22:20 06/14/18 22:20 Intake and Output: 06/14/18 06/15/18 18:59 06:59 Intake Total 1220.4 666.8 Output Total 725 280 Balance 495.4 386.8 - Medications Medications: Current Medications Albuterol/Ipratropium (Duoneb 3 Mg/0.5 Mg (3 Ml) Ud) 3 ml INH RQ4 [facility] Guaifenesin (Mucinex La) 600 mg PO BID [facility] Last Admin: 06/14/18 17:02 Dose: Not Given Levetiracetam 500 mg/ Dextrose 105 mls @ 420 mls/hr IVPB Q12H [facility] [place] Last Admin: 06/14/18 19:32 Dose: 420 mls/hr Sodium Chloride (Sodium Chloride 0.9%) 1,000 mls @ 100 mls/hr IV .Q10H [facility] [place] Last Admin: 06/14/18 14:35 Dose: 100 mls/hr Dexmedetomidine HCl 400 mcg/ (Sodium Chloride) 100 mls @ 2.63 mls/hr IV TITR PRN; Protocol; 0.2 MCG/KG/HR PRN Reason: Restlessness Propofol (Diprivan) 1,000 mg in 100 mls @ 1.442 mls/hr IV .Q24H PRN; Protocol; 5 MCG/KG/MIN PRN Reason: TITRATE PER MD ORDER Last Admin: 06/15/18 00:06 Dose: 70 mcg/kg/min, 20.194 mls/hr Norepinephrine Bitartrate 4 mg (/ Sodium Chloride) 254 mls @ 15.24 mls/hr IV .[id number] PRN; Protocol; 4 MCG/MIN PRN Reason: TITRATE PER MD ORDER Phenylephrine HCl 30 mg/ (Sodium Chloride) 253 mls @ 10.12 mls/hr IV .Q24H PRN ; Protocol; 20 MCG/MIN PRN Reason: TITRATE PER MD ORDER Last Admin: 06/14/18 20:56 Dose: 80 mcg/min, 40.48 mls/hr Piperacillin Sod/Tazobactam Sod (Zosyn 3.375 Gm Iv Premix) 3.375 gm in 50 mls @ 100 mls/hr IVPB Q6H [facility] PRN Reason: Protocol Last Admin: 06/14/18 23:04 Dose: 100 mls/hr Vancomycin/Sodium Chloride (Vancomycin 1 Gm/Ns 200 Ml) 1 gm in 200 mls @ 133 mls/hr IVPB Q12H [facility] PRN Reason: Protocol Stop: 06/19/18 21:01 Last Admin: 06/14/18 21:25 Dose: 133 mls/hr Lorazepam (Ativan) 1 mg IVP Q4H PRN PRN Reason: Anxiety Last Admin: 06/14/18 19:30 Dose: 1 mg Methylprednisolone (Solu-Medrol) 40 mg IV Q8H [facility] Midazolam HCl (Versed Inj) 2 mg IVP Q4 PRN PRN Reason: Agitation Pantoprazole Sodium (Protonix Inj) 40 mg IVP Q12 [facility] Last Admin: 06/14/18 21:26 Dose: 40 mg Sucralfate (Carafate Oral Susp) 1 gm PO QID [facility] Last Admin: 06/14/18 21:20 Dose: Not Given - Labs Labs: 06/14/18 20:06 06/14/18 06:15 PT 16.0 SECONDS (9.7-12.2) H 06/13/18 06:20 INR 1.5 06/13/18 06:20 APTT 40 SECONDS (21-34) H 06/10/18 23:37 Assessment and Plan (1) Hyponatremia Status: Acute (2) Cardiac arrest Status: Acute (3) Hypokalemia Status: Acute Attending/Attestation - Attestation I have personally seen and examined this patient.: Yes I have fully participated in the care of the patient.: Yes I have reviewed all pertinent clinical information, including history, physical exam and plan: Yes Notes (Text): Patient seen and examined; I agree with the resident's note as above with the following additions/edits: Patient with history of ETOH abuse admitted s/p cardiac arrest with severe electrolyte abnormalities (hyponatremia, hypokalemia, hypomagnesemia) which have most resolved; concern for respiratory failure with patient remaining very tachypneic since extubation 2 days ago; events of today reviewed including re- intubation after our encounter with him; CT chest showing multi-focal opacities and R lung consolidation; patient also became very hypotensive; -Agree with volume repletion especially with concern for possible sepsis; should continue to monitor electrolytes closely in this patient who has been NPO and now intubated; we will continue to follow.
[2018-06-14] MEDS: Sucralfate 1 gm/10 ml Oral Susp UD PO SCH ×4 (09:53→21:20)
[2018-06-14] MEDS: guaiFENesin 600 mg ER Tab PO SCH ×2 (09:53→17:02)
--- NOTE | 2018-06-14 12:56 | CP.CCUPN ---
<Martinez Winters - Last Filed: 06/14/18 17:36> CCU Objective - Vital Signs / Intake & Output Vital Signs (Last 4 hours): Vital Signs Temp Pulse Resp BP Pulse Ox 06/14/18 17:13 116 H 39 H 119/69 95 06/14/18 17:03 125 H 51 H 140/80 94 L 06/14/18 17:00 122 H 43 H 93 L 06/14/18 16:03 111 H 49 H 131/71 91 L 06/14/18 16:00 98.5 F 112 H 53 H 94 L 06/14/18 15:03 90 35 H 113/71 98 06/14/18 15:00 101 H 27 H 95 06/14/18 14:04 108 H 51 H 108/58 L 88 L 06/14/18 14:00 97 H 44 H 93 L Intake and Output (Last 8hrs): Intake & Output 06/14/18 06/14/18 06/14/18 06:59 14:59 22:59 Intake Total 852.3 833.6 277.6 Output Total 485 65 Balance 367.3 768.6 277.6 Weight 106 lb Intake: IV 50 100 Intake, IV Amount 802.3 733.6 277.6 LEFT IJ DISTAL PORT 600 75 LEFT IJ MEDIAL PORT 80 585 250 LEFT IJ PROXIMAL PORT 72.3 73.6 27.6 Left Forearm 0 Left Forearm#2 0 Right IJ TLC Distal Port 50 2 Output: Urine 485 65 Urethral (Griffith) 485 65 Other: # Bowel Movements 1 - Medications Active Medications: Active Medications Generic Name Dose Route Start Last Admin Trade Name Murphyq PRN Reason Stop Dose Admin Guaifenesin 600 mg 06/14/18 10:00 06/14/18 17:02 Mucinex La PO Not Given BID MAYANK Levetiracetam 500 mg/ Dextrose 105 mls @ 420 mls/hr 06/11/18 07:30 06/14/18 08:00 IVPB 420 mls/hr Q12H MAYANK Administration Piperacillin Sod/Tazobactam Sod 3.375 gm in 50 mls @ 100 mls/hr 06/14/18 10: 00 06/14/18 15:00 Zosyn 3.375 Gm Iv Premix IVPB 100 mls/hr Q6H MAYANK Administration Protocol Sodium Chloride 1,000 mls @ 100 mls/hr 06/14/18 14:33 06/14/18 14:35 Sodium Chloride 0.9% IV 100 mls/hr .Q10H MAYANK Administration Dexmedetomidine HCl 400 mcg/ 100 mls @ 2.63 mls/hr 06/14/18 17:15 Sodium Chloride IV TITR PRN Restlessness Protocol 0.2 MCG/KG/HR Lorazepam 1 mg 06/13/18 17:15 06/13/18 17:21 Ativan IVP 1 mg Q4H PRN Administration Anxiety Pantoprazole Sodium 40 mg 06/14/18 10:00 06/14/18 09:45 Protonix Inj IVP 40 mg Q12 MAYANK Administration Sucralfate 1 gm 06/11/18 18:00 06/14/18 17:01 Carafate Oral Susp PO Not Given QID MAYANK - Patient Studies Lab Studies: Microbiology Studies 06/11/18 17:15 Blood Culture - Preliminary Blood-Venous NO GROWTH AFTER 3 DAYS 06/11/18 17:00 S.aureus & Coag-Neg Staph PNA FISH - Final Blood-Venous Blood Culture - Final Coagulase Neg Staphylococcus Gram Stain - Final 06/13/18 06:20 Urine Culture - Final Urine,Catheterized No Growth (<1,000 CFU/ML) 06/12/18 22:42 Blood Culture - Preliminary Blood NO GROWTH AFTER 24 HOURS 06/12/18 22:42 Blood Culture - Preliminary Blood NO GROWTH AFTER 24 HOURS Lab Studies 06/14/18 06/14/18 06/14/18 Range/Units 06:16 06:15 06:15 WBC 8.7 (4.8-10.8) K/uL RBC 2.51 L (4.40-5.90) Mil/uL Hgb 8.0 L (12.0-18.0) g/dL Hct 22.9 L (35.0-51.0) % MCV 91.0 D (80.0-94.0) fL MCH 32.0 H (27.0-31.0) pg MCHC 35.2 (33.0-37.0) g/dL RDW 17.5 H (11.5-14.5) % Plt Count 119 L D (130-400) K/uL MPV 7.5 (7.2-11.7) fL Neut % (Auto) 71.7 (50.0-75.0) % Lymph % (Auto) 13.3 L (20.0-40.0) % Sampson % (Auto) 14.0 H (0.0-10.0) % Eos % (Auto) 0.8 (0.0-4.0) % Baso % (Auto) 0.2 (0.0-2.0) % Neut # (Auto) 6.2 (1.8-7.0) K/uL Lymph # (Auto) 1.2 (1.0-4.3) K/uL Sampson # (Auto) 1.2 H (0.0-0.8) K/uL Eos # (Auto) 0.1 (0.0-0.7) K/uL Baso # (Auto) 0.0 (0.0-0.2) K/uL Puncture Site pCO2 (35-45) mm/Hg pO2 (80-100) mm/Hg HCO3 (21-28) mmol/L ABG pH (7.35-7.45) ABG Total CO2 (22-28) mmol/L ABG O2 Saturation (95-98) % ABG Base Excess (-2.0-3.0) mmol/L ABG Hemoglobin (11.7-17.4) g/dL ABG Carboxyhemoglobin (0.5-1.5) % POC ABG HHb (Measured) (0.0-5.0) % ABG Methemoglobin (0.0-3.0) % Bob Test A-a O2 Difference mm/Hg Respiratory Index Hgb O2 Saturation (95.0-98.0) % Vent Mode FiO2 % Inspiratory BiPAP Expiratory BiPAP Sodium 134 (132-148) mmol/L Potassium 4.5 (3.6-5.2) mmol/L Chloride 105 (98-107) mmol/L Carbon Dioxide 19 L (22-30) mmol/L Anion Gap 15 (10-20) BUN 6 L (9-20) mg/dL Creatinine 0.7 L (0.8-1.5) mg/dL Est GFR ( Amer) > 60 Est GFR (Non-Af Amer) > 60 Random Glucose 85 (75-110) mg/dL Calcium 8.1 L (8.6-10.4) mg/dl Phosphorus 2.7 (2.5-4.5) mg/dL Magnesium 1.6 (1.6-2.3) mg/dL Total Bilirubin 0.6 (0.2-1.3) mg/dL AST 31 (17-59) U/L ALT 41 (21-72) U/L Alkaline Phosphatase 69 (38-126) U/L Ammonia < 9 L (9-33) umol/L Total Protein 5.4 L (6.3-8.3) g/dL Albumin 2.5 L (3.5-5.0) g/dL Globulin 2.9 (2.2-3.9) gm/dL Albumin/Globulin Ratio 0.8 L (1.0-2.1) 06/14/18 06/14/18 Range/Units 05:05 00:20 WBC (4.8-10.8) K/uL RBC (4.40-5.90) Mil/uL Hgb (12.0-18.0) g/dL Hct (35.0-51.0) % MCV (80.0-94.0) fL MCH (27.0-31.0) pg MCHC (33.0-37.0) g/dL RDW (11.5-14.5) % Plt Count (130-400) K/uL MPV (7.2-11.7) fL Neut % (Auto) (50.0-75.0) % Lymph % (Auto) (20.0-40.0) % Sampson % (Auto) (0.0-10.0) % Eos % (Auto) (0.0-4.0) % Baso % (Auto) (0.0-2.0) % Neut # (Auto) (1.8-7.0) K/uL Lymph # (Auto) (1.0-4.3) K/uL Sampson # (Auto) (0.0-0.8) K/uL Eos # (Auto) (0.0-0.7) K/uL Baso # (Auto) (0.0-0.2) K/uL Puncture Site Rr pCO2 29 L (35-45) mm/Hg pO2 101 H (80-100) mm/Hg HCO3 19.8 L (21-28) mmol/L ABG pH 7.39 (7.35-7.45) ABG Total CO2 18.5 L (22-28) mmol/L ABG O2 Saturation 98.7 H (95-98) % ABG Base Excess -6.6 L (-2.0-3.0) mmol/L ABG Hemoglobin 8.0 L (11.7-17.4) g/dL ABG Carboxyhemoglobin 1.3 (0.5-1.5) % POC ABG HHb (Measured) 1.3 (0.0-5.0) % ABG Methemoglobin 1.3 (0.0-3.0) % Bob Test Pos A-a O2 Difference 219.0 mm/Hg Respiratory Index 2.2 Hgb O2 Saturation 96.2 (95.0-98.0) % Vent Mode Bipap FiO2 50.0 % Inspiratory BiPAP 16 Expiratory BiPAP 8 Sodium 131 L (132-148) mmol/L Potassium 4.3 (3.6-5.2) mmol/L Chloride 103 (98-107) mmol/L Carbon Dioxide 22 (22-30) mmol/L Anion Gap 10 (10-20) BUN 5 L (9-20) mg/dL Creatinine 0.6 L (0.8-1.5) mg/dL Est GFR ( Amer) > 60 Est GFR (Non-Af Amer) > 60 Random Glucose 80 (75-110) mg/dL Calcium 8.1 L (8.6-10.4) mg/dl Phosphorus (2.5-4.5) mg/dL Magnesium 1.7 (1.6-2.3) mg/dL Total Bilirubin (0.2-1.3) mg/dL AST (17-59) U/L ALT (21-72) U/L Alkaline Phosphatase (38-126) U/L Ammonia (9-33) umol/L Total Protein (6.3-8.3) g/dL Albumin (3.5-5.0) g/dL Globulin (2.2-3.9) gm/dL Albumin/Globulin Ratio (1.0-2.1) Laboratory Results - last 24 hr 06/14/18 06/14/18 06/14/18 00:20 05:05 06:15 WBC RBC Hgb Hct MCV MCH MCHC RDW Plt Count MPV Neut % (Auto) Lymph % (Auto) Sampson % (Auto) Eos % (Auto) Baso % (Auto) Neut # (Auto) Lymph # (Auto) Sampson # (Auto) Eos # (Auto) Baso # (Auto) Puncture Site Rr pCO2 29 L pO2 101 H HCO3 19.8 L ABG pH 7.39 ABG Total CO2 18.5 L ABG O2 Saturation 98.7 H ABG Base Excess -6.6 L ABG Hemoglobin 8.0 L ABG Carboxyhemoglobin 1.3 POC ABG HHb (Measured) 1.3 ABG Methemoglobin 1.3 Bob Test Pos A-a O2 Difference 219.0 Respiratory Index 2.2 Hgb O2 Saturation 96.2 Vent Mode Bipap FiO2 50.0 Inspiratory BiPAP 16 Expiratory BiPAP 8 Sodium 131 L 134 Potassium 4.3 4.5 Chloride 103 105 Carbon Dioxide 22 19 L Anion Gap 10 15 BUN 5 L 6 L Creatinine 0.6 L 0.7 L Est GFR ( Amer) > 60 > 60 Est GFR (Non-Af Amer) > 60 > 60 Random Glucose 80 85 Calcium 8.1 L 8.1 L Phosphorus 2.7 Magnesium 1.7 1.6 Total Bilirubin 0.6 AST 31 ALT 41 Alkaline Phosphatase 69 Ammonia Total Protein 5.4 L Albumin 2.5 L Globulin 2.9 Albumin/Globulin Ratio 0.8 L 06/14/18 06/14/18 06:15 06:16 WBC 8.7 RBC 2.51 L Hgb 8.0 L Hct 22.9 L MCV 91.0 D MCH 32.0 H MCHC 35.2 RDW 17.5 H Plt Count 119 L D MPV 7.5 Neut % (Auto) 71.7 Lymph % (Auto) 13.3 L Sampson % (Auto) 14.0 H Eos % (Auto) 0.8 Baso % (Auto) 0.2 Neut # (Auto) 6.2 Lymph # (Auto) 1.2 Sampson # (Auto) 1.2 H Eos # (Auto) 0.1 Baso # (Auto) 0.0 Puncture Site pCO2 pO2 HCO3 ABG pH ABG Total CO2 ABG O2 Saturation ABG Base Excess ABG Hemoglobin ABG Carboxyhemoglobin POC ABG HHb (Measured) ABG Methemoglobin Bob Test A-a O2 Difference Respiratory Index Hgb O2 Saturation Vent Mode FiO2 Inspiratory BiPAP Expiratory BiPAP Sodium Potassium Chloride Carbon Dioxide Anion Gap BUN Creatinine Est GFR ( Amer) Est GFR (Non-Af Amer) Random Glucose Calcium Phosphorus Magnesium Total Bilirubin AST ALT Alkaline Phosphatase Ammonia < 9 L Total Protein Albumin Globulin Albumin/Globulin Ratio Critical Care Progress Note - Nutrition Nutrition: Nutrition Category Date Time Status NPO Diet [DIET] Diets 06/11/18 Breakfast Active Assessment/Plan (1) Cardiac arrest Current Visit: Yes Status: Acute Attending/Attestation - Attestation I have personally seen and examined this patient.: Yes I have fully participated in the care of the patient.: Yes I have reviewed all pertinent clinical information: Yes Notes (Text): 06/14/18 17:37 I have seen and examined the patient. Medical records, lab studies, and imaging were reviewed by me and a management plan was formulated on multidisciplinary rounds with resident Dr. Martínez. I agree with their documented assessment and plan. Patient has periods of tachypnea with hypoxia. He was at risk for PE, with no a /c secondary to the recent GI bleed, will get CT angio to r/o PE. If negative for PE then this is most likely secondary to flail chest from rib fractures obtained during CPR. Critical Care Time 35 minutes. Multi-disciplinary rounds were performed with house staff, nursing, speech therapy, respiratory therapy, pharmacy and nutrition with integrated input from the primary team/attending and other consulting services. The documented time is cumulative and includes review of patient data/exams/labs/chart review and examination of the patient on rounds and throughout the day; time is exclusive of any procedures or teaching time. <Melvin Martínez - Last Filed: 06/14/18 23:52> CCU Subjective - Physician Review Subjective (Free Text): Melvin Martínez DO PGY-1, ICU progress note for Dr. Winters Pt seen and examined at bedside. Pt is on BPAP, and remains tachypneic in the 40s. Decision was made to intubate the pt due to increased work of breathing, and impending respiratory failure. Chest CTA prior to intubation showed NO evidence of PE. Extensive right lower lobe consolidation/atelectasis with lesser atelectasis in the right middle lobe and lingula. Multifocal ground- glass opacity. Possible infectious etiology. Fluid/secretion in right lower lobe bronchus and possible right upper lobe bronchus. Consider aspiration as etiology. Mild mediastinal and right hilar lymphadenopathy. 7.5 ETT was placed via glidescope, second attempt; induction with etomidate and versed. Pt required aggressive suctioning due to mucus and oral secretions; no bleeding noted or loss of dentition. Verification via visualization of ETT cuff passing the vocal cords, qualitative capnography and bilateral breath sounds: 24 at the lip. Pt was hypotensive, and hypoxemic. NS 1L IV bolus was initiated with adequate response in BP. It was determined that the ETT was in the right main bronchus, ETT retracted 2 cm, to 21 cm at the teeth. Pt was placed on ventilator. Stat CXR was ordered. Pt was insufficiently sedated and biting on the tube, peak airway pressures were elevated. Propofol gtt was started, with subsequent drop in blood pressure , 50/30 and MAP below 60, Pt remained tachycardic in the 120s. Decision was made to start pt on pressor. Pt's plse oximetry has been persistently fluctuating from the 70s to 100; with inadequate waveform at times. Approximately 30 minutes after intubation and ventilation, CXR was done, which showed that ETT was located proximal to adequate placement in relation to the lila; right lower lobe atelectasis with consolidation. ETT advanced 2 cm. ROS unobtainable. No fevers overnight, pt produced 750 mL of urine overnight. CCU Objective - Vital Signs / Intake & Output Vital Signs (Last 4 hours): Vital Signs Pulse Resp BP Pulse Ox 06/14/18 11:40 95 H 06/14/18 11:03 97 H 36 H 143/71 95 06/14/18 11:00 103 H 36 H 96 06/14/18 10:03 108 H 40 H 154/76 H 81 L 06/14/18 10:00 111 H 31 H 86 L 06/14/18 09:03 92 H 51 H 115/69 96 06/14/18 09:00 93 H 43 H 94 L Intake and Output (Last 8hrs): Intake & Output 06/13/18 06/14/18 06/14/18 22:59 06:59 14:59 Intake Total 828.4 852.3 200.2 Output Total 495 485 65 Balance 333.4 367.3 135.2 Weight 48.081 kg Intake: IV 100 50 50 Intake, IV Amount 728.4 802.3 150.2 LEFT IJ DISTAL PORT 550 600 75 LEFT IJ MEDIAL PORT 80 80 20 LEFT IJ PROXIMAL PORT 48.4 72.3 55.2 Left Forearm 0 0 Left Forearm#2 0 0 Right IJ TLC Distal Port 50 50 2 Output: Urine 495 485 65 Urethral (Griffith) 495 485 65 Other: # Bowel Movements 1 1 - Physical Exam Narrative Physical Exam (Free Text): Physical exam was done after intubation. Head: Positive for: Atraumatic, Normocephalic Pupils: Positive for: PERRL Extroacular Muscles: Negative for: EOMI (intubated and sedated) Conjunctiva: Positive for: Normal Mouth: Positive for: Moist Mucous Membranes, Other ((+) ETT) Nose (Internal): Positive for: Normal Inspection Respiratory/Chest: Positive for: Wheezes (diffuse wheezing), Decreased Breath Sounds (severly decreased breath sounds in the right lower lung base, minimal air movement in the upper right lung field; decreased breath sounds in the left lung nolan). Negative for: Good Air Exchange Cardiovascular: Positive for: Normal S1, S2, Tachycardic, Other (hypotension prior to starting phenylephrine) Abdomen: Positive for: Normal Bowel Sounds. Negative for: Tenderness (unable to assess as pt is intubated and sedated), Distention Upper Extremity: Positive for: Normal Inspection Lower Extremity: Positive for: Normal Inspection Neurological: Positive for: Other (intubated and sedated). Negative for: GCS=15 Skin: Positive for: Warm, Dry, Normal Color Psychiatric: Positive for: Other (intubated and sedated) - Medications Active Medications: Active Medications Generic Name Dose Route Start Last Admin Trade Name Freq PRN Reason Stop Dose Admin Guaifenesin 600 mg 06/14/18 10:00 06/14/18 09:53 Mucinex La PO Not Given BID MAYANK Levetiracetam 500 mg/ Dextrose 105 mls @ 420 mls/hr 06/11/18 07:30 06/14/18 08:00 IVPB 420 mls/hr Q12H MAYANK Administration Dexmedetomidine HCl 200 mcg/ 50 mls @ 2.63 mls/hr 06/12/18 22:47 06/14/18 08: 15 Sodium Chloride IV 0.7 mcg/kg/hr TITR PRN 9.23 mls/hr Restlessness Administration Protocol 0.2 MCG/KG/HR Potassium Chloride 40 meq/ 1,020 mls @ 75 mls/hr 06/13/18 13:00 06/14/18 02: 42 Sodium Chloride IV Not Given .[id number] MAYANK Piperacillin Sod/Tazobactam Sod 3.375 gm in 50 mls @ 100 mls/hr 06/14/18 10: 00 06/14/18 10:00 Zosyn 3.375 Gm Iv Premix IVPB 100 mls/hr Q6H MAYANK Administration Protocol Lorazepam 1 mg 06/13/18 17:15 06/13/18 17:21 Ativan IVP 1 mg Q4H PRN Administration Anxiety Pantoprazole Sodium 40 mg 06/14/18 10:00 06/14/18 09:45 Protonix Inj IVP 40 mg Q12 MAYANK Administration Sucralfate 1 gm 06/11/18 18:00 06/14/18 09:53 Carafate Oral Susp PO Not Given QID MAYANK - Patient Studies Lab Studies: Microbiology Studies 06/11/18 17:00 S.aureus & Coag-Neg Staph PNA FISH - Final Blood-Venous Blood Culture - Final Coagulase Neg Staphylococcus Gram Stain - Final 06/13/18 06:20 Urine Culture - Final Urine,Catheterized No Growth (<1,000 CFU/ML) 06/12/18 22:42 Blood Culture - Preliminary Blood NO GROWTH AFTER 24 HOURS 06/12/18 22:42 Blood Culture - Preliminary Blood NO GROWTH AFTER 24 HOURS 06/11/18 17:15 Blood Culture - Preliminary Blood-Venous NO GROWTH AFTER 48 HOURS 06/11/18 Unknown Urine Culture - Final Urine,Catheterized Acinetobacter Baumannii Lab Studies 06/14/18 06/14/18 06/14/18 Range/Units 06:16 06:15 06:15 WBC 8.7 (4.8-10.8) K/uL RBC 2.51 L (4.40-5.90) Mil/uL Hgb 8.0 L (12.0-18.0) g/dL Hct 22.9 L (35.0-51.0) % MCV 91.0 D (80.0-94.0) fL MCH 32.0 H (27.0-31.0) pg MCHC 35.2 (33.0-37.0) g/dL RDW 17.5 H (11.5-14.5) % Plt Count 119 L D (130-400) K/uL MPV 7.5 (7.2-11.7) fL Neut % (Auto) 71.7 (50.0-75.0) % Lymph % (Auto) 13.3 L (20.0-40.0) % Sampson % (Auto) 14.0 H (0.0-10.0) % Eos % (Auto) 0.8 (0.0-4.0) % Baso % (Auto) 0.2 (0.0-2.0) % Neut # (Auto) 6.2 (1.8-7.0) K/uL Lymph # (Auto) 1.2 (1.0-4.3) K/uL Sampson # (Auto) 1.2 H (0.0-0.8) K/uL Eos # (Auto) 0.1 (0.0-0.7) K/uL Baso # (Auto) 0.0 (0.0-0.2) K/uL Puncture Site pCO2 (35-45) mm/Hg pO2 (80-100) mm/Hg HCO3 (21-28) mmol/L ABG pH (7.35-7.45) ABG Total CO2 (22-28) mmol/L ABG O2 Saturation (95-98) % ABG Base Excess (-2.0-3.0) mmol/L ABG Hemoglobin (11.7-17.4) g/dL ABG Carboxyhemoglobin (0.5-1.5) % POC ABG HHb (Measured) (0.0-5.0) % ABG Methemoglobin (0.0-3.0) % Bob Test A-a O2 Difference mm/Hg Respiratory Index Hgb O2 Saturation (95.0-98.0) % Vent Mode FiO2 % Inspiratory BiPAP Expiratory BiPAP Sodium 134 (132-148) mmol/L Potassium 4.5 (3.6-5.2) mmol/L Chloride 105 (98-107) mmol/L Carbon Dioxide 19 L (22-30) mmol/L Anion Gap 15 (10-20) BUN 6 L (9-20) mg/dL Creatinine 0.7 L (0.8-1.5) mg/dL Est GFR ( Amer) > 60 Est GFR (Non-Af Amer) > 60 Random Glucose 85 (75-110) mg/dL Calcium 8.1 L (8.6-10.4) mg/dl Phosphorus 2.7 (2.5-4.5) mg/dL Magnesium 1.6 (1.6-2.3) mg/dL Total Bilirubin 0.6 (0.2-1.3) mg/dL AST 31 (17-59) U/L ALT 41 (21-72) U/L Alkaline Phosphatase 69 (38-126) U/L Ammonia < 9 L (9-33) umol/L Total Protein 5.4 L (6.3-8.3) g/dL Albumin 2.5 L (3.5-5.0) g/dL Globulin 2.9 (2.2-3.9) gm/dL Albumin/Globulin Ratio 0.8 L (1.0-2.1) 06/14/18 06/14/18 Range/Units 05:05 00:20 WBC (4.8-10.8) K/uL RBC (4.40-5.90) Mil/uL Hgb (12.0-18.0) g/dL Hct (35.0-51.0) % MCV (80.0-94.0) fL MCH (27.0-31.0) pg MCHC (33.0-37.0) g/dL RDW (11.5-14.5) % Plt Count (130-400) K/uL MPV (7.2-11.7) fL Neut % (Auto) (50.0-75.0) % Lymph % (Auto) (20.0-40.0) % Sampson % (Auto) (0.0-10.0) % Eos % (Auto) (0.0-4.0) % Baso % (Auto) (0.0-2.0) % Neut # (Auto) (1.8-7.0) K/uL Lymph # (Auto) (1.0-4.3) K/uL Sampson # (Auto) (0.0-0.8) K/uL Eos # (Auto) (0.0-0.7) K/uL Baso # (Auto) (0.0-0.2) K/uL Puncture Site Rr pCO2 29 L (35-45) mm/Hg pO2 101 H (80-100) mm/Hg HCO3 19.8 L (21-28) mmol/L ABG pH 7.39 (7.35-7.45) ABG Total CO2 18.5 L (22-28) mmol/L ABG O2 Saturation 98.7 H (95-98) % ABG Base Excess -6.6 L (-2.0-3.0) mmol/L ABG Hemoglobin 8.0 L (11.7-17.4) g/dL ABG Carboxyhemoglobin 1.3 (0.5-1.5) % POC ABG HHb (Measured) 1.3 (0.0-5.0) % ABG Methemoglobin 1.3 (0.0-3.0) % Bob Test Pos A-a O2 Difference 219.0 mm/Hg Respiratory Index 2.2 Hgb O2 Saturation 96.2 (95.0-98.0) % Vent Mode Bipap FiO2 50.0 % Inspiratory BiPAP 16 Expiratory BiPAP 8 Sodium 131 L (132-148) mmol/L Potassium 4.3 (3.6-5.2) mmol/L Chloride 103 (98-107) mmol/L Carbon Dioxide 22 (22-30) mmol/L Anion Gap 10 (10-20) BUN 5 L (9-20) mg/dL Creatinine 0.6 L (0.8-1.5) mg/dL Est GFR ( Amer) > 60 Est GFR (Non-Af Amer) > 60 Random Glucose 80 (75-110) mg/dL Calcium 8.1 L (8.6-10.4) mg/dl Phosphorus (2.5-4.5) mg/dL Magnesium 1.7 (1.6-2.3) mg/dL Total Bilirubin (0.2-1.3) mg/dL AST (17-59) U/L ALT (21-72) U/L Alkaline Phosphatase (38-126) U/L Ammonia (9-33) umol/L Total Protein (6.3-8.3) g/dL Albumin (3.5-5.0) g/dL Globulin (2.2-3.9) gm/dL Albumin/Globulin Ratio (1.0-2.1) Laboratory Results - last 24 hr 06/14/18 06/14/18 06/14/18 00:20 05:05 06:15 WBC RBC Hgb Hct MCV MCH MCHC RDW Plt Count MPV Neut % (Auto) Lymph % (Auto) Sampson % (Auto) Eos % (Auto) Baso % (Auto) Neut # (Auto) Lymph # (Auto) Sampson # (Auto) Eos # (Auto) Baso # (Auto) Puncture Site Rr pCO2 29 L pO2 101 H HCO3 19.8 L ABG pH 7.39 ABG Total CO2 18.5 L ABG O2 Saturation 98.7 H ABG Base Excess -6.6 L ABG Hemoglobin 8.0 L ABG Carboxyhemoglobin 1.3 POC ABG HHb (Measured) 1.3 ABG Methemoglobin 1.3 Bob Test Pos A-a O2 Difference 219.0 Respiratory Index 2.2 Hgb O2 Saturation 96.2 Vent Mode Bipap FiO2 50.0 Inspiratory BiPAP 16 Expiratory BiPAP 8 Sodium 131 L 134 Potassium 4.3 4.5 Chloride 103 105 Carbon Dioxide 22 19 L Anion Gap 10 15 BUN 5 L 6 L Creatinine 0.6 L 0.7 L Est GFR ( Amer) > 60 > 60 Est GFR (Non-Af Amer) > 60 > 60 Random Glucose 80 85 Calcium 8.1 L 8.1 L Phosphorus 2.7 Magnesium 1.7 1.6 Total Bilirubin 0.6 AST 31 ALT 41 Alkaline Phosphatase 69 Ammonia Total Protein 5.4 L Albumin 2.5 L Globulin 2.9 Albumin/Globulin Ratio 0.8 L 06/14/18 06/14/18 06:15 06:16 WBC 8.7 RBC 2.51 L Hgb 8.0 L Hct 22.9 L MCV 91.0 D MCH 32.0 H MCHC 35.2 RDW 17.5 H Plt Count 119 L D MPV 7.5 Neut % (Auto) 71.7 Lymph % (Auto) 13.3 L Sampson % (Auto) 14.0 H Eos % (Auto) 0.8 Baso % (Auto) 0.2 Neut # (Auto) 6.2 Lymph # (Auto) 1.2 Sampson # (Auto) 1.2 H Eos # (Auto) 0.1 Baso # (Auto) 0.0 Puncture Site pCO2 pO2 HCO3 ABG pH ABG Total CO2 ABG O2 Saturation ABG Base Excess ABG Hemoglobin ABG Carboxyhemoglobin POC ABG HHb (Measured) ABG Methemoglobin Bob Test A-a O2 Difference Respiratory Index Hgb O2 Saturation Vent Mode FiO2 Inspiratory BiPAP Expiratory BiPAP Sodium Potassium Chloride Carbon Dioxide Anion Gap BUN Creatinine Est GFR ( Amer) Est GFR (Non-Af Amer) Random Glucose Calcium Phosphorus Magnesium Total Bilirubin AST ALT Alkaline Phosphatase Ammonia < 9 L Total Protein Albumin Globulin Albumin/Globulin Ratio Fingerstick Blood Sugar Results: 158 Review of Systems - Review of Systems All systems: reviewed and no additional remarkable complaints except (as per HPI ) Critical Care Progress Note - Ventilator Checklist Head of Bed 30 Degrees: Yes Daily Sedation Vacation: Yes Daily Assessment of Readiness to Wean: Yes Daily Spontaneous Breathing Trial: Yes PUD Prophalyxis: Yes DVT Prophylaxis: Yes Oral Care with Chlorhexidine Gluconate {CHG}: Yes - Vent Settings MODE:: PRVC - Extremities/Vascular Does the Patient have a Central Venous Catheter?: Yes Does the Patient need a Griffith Catheter?: Yes - Restraints Justification for Restraints: High risk for self extubation, High risk for removing IV access, High risk for harming self - Prophylaxis GI Prophylaxis GI: PPI - Prophylaxis DVT Prophylaxis DVT: SCDs - Nutrition Nutrition: Nutrition Category Date Time Status NPO Diet [DIET] Diets 06/11/18 Breakfast Active Assessment/Plan - Assessment and Plan (Free Text) Assessment: This is a 52 year old male with PMHx of alcohol use disorder, seizure disorder, PUD, partial gastrectomy, COPD, hiatal hernia who came to [facility] ED on 06/10 for cardiac arrest. Pt suffered a seizure and was found in PEA by EMS and intubated in the field. In [facility] ED pt in PEA again, coded x2 with CPR. Started on levophed with rosc. Hgb was noted to be 7.7/7.4, and hyponatremia at 109 (nephro consulted). Pt was transfused 2 units of pRBCs. On 06/11, pt had EGD which showed multiple gastric ulcers that were clipped. On 06/12, pt was extubated and placed on BPAP. On CXR pt has rib fractures likely secondary to CPR. Today, pt was noted to be severely tachypneic on BPAP, and decision was made to intubate the pt due to impending respiratory failure. Pt was hypotensive and hypoxic after intubation. Pt is intubated, ventilated, sedated, and on a pressor for shock. Plan: Neuro: - monitor for mental status changes - pt is AAOx3 at baseline - sedation with propofol gtt, lorazepam prn, midazolam prn Cardio: - maintain MAP>65 mmHg - shock; possibly due to sepsis secondary to aspiration pneumonia vs propofol effect - phenylephrine gtt - s/p 1 NS 1L IV bolus, followed by NS at 100 mL/Hr - echocardiogram (06/11) shows EF of 45-50%, Left ventricular diastolic function is abnormal. Transmitral doppler flow pattern is grade I-abnormal relaxation pattern. trace to mild tricuspid regurgitation. - f/u troponin Pulm: - on vent: PRVC - CXR shows that ETT was located proximal to adequate placement in relation to the lila; right lower lobe atelectasis with consolidation. ETT advanced 2 cm. - Chest CTA prior to intubation showed NO evidence of PE. Extensive right lower lobe consolidation/atelectasis with lesser atelectasis in the right middle lobe and lingula. Multifocal ground-glass opacity. Possible infectious etiology. Fluid/secretion in right lower lobe bronchus and possible right upper lobe bronchus. Consider aspiration as etiology. Mild mediastinal and right hilar lymphadenopathy. - f/u repeat CXR - abg shows worsening acidemia with low po2; f/u abg - possible bronchoscopy in future to suction mucus - likely aspiration pneumonia, start empiric antibiotics - maintain spo2>92% - solumedrol 125 mg IVP, followed by 40 mg q8h - duonebs q4h GI: - s/p clipping of gastric ulcers (06/11) - NPO; TPN - protonix for PUD ppx - f/u GI recs Renal: - BUN/Cr is wnl - hyponatremia has resolved - maintain euvolemia - repelet electrolytes as needed ID: - extensive consolidation with fluid/secretion in bronchus on chest ct; likely aspiration pneumonia - zosyn 3.375 q6h, vancomycin 1 g q12h - f/u cbc, lactate, new blood cultures, sputum culture, procalcitonin Heme: - H/H stable - f/u cbc in am - AC is contraindicated due to recent gi bleeding from gastric ulcers; dvt ppx from [facility] Endo: -maintain euglycemia PPX: protonix for pud; scds for dvt Dispo: Continue to manage pt in the ICU Case was reviewed and discussed with attending physician, Dr. Winters
[2018-06-14] MEDS ORDERED: Sodium Chloride 0.9% 1,000 ML IV SCH (13:30)
[2018-06-14] MEDS: Sodium Chloride 0.9% 1,000 ML IV SCH (14:35)
[2018-06-14] MEDS ORDERED: Iodixanol 320 MG/ML 100 ML BOTTLE IV ONE (16:00)
--- NOTE | 2018-06-14 17:01 | RAD ---
Date of service: 06/14/2018 HISTORY: f/u COMPARISON: 06/13/2018 FINDINGS: LUNGS: The coalescent opacity in the left mid lung zone more clearly appreciated without the extrinsic overlying tubing PLEURA: No significant pleural effusion identified, no pneumothorax apparent. CARDIOVASCULAR: Normal. OSSEOUS STRUCTURES: Posttraumatic deformity left humerus with orthopedic hardware VISUALIZED UPPER ABDOMEN: Normal. OTHER FINDINGS: Left internal jugular vein catheter tip in right atrial caval junction Surgical clips left upper abdomen. IMPRESSION: Extensive left coalescent pulmonary infiltrate spanning the middle 1/3 of the left patel thorax more clearly appreciated on this exam without the extraneous tubing Left internal jugular vein catheter tip in right atrial caval junction
--- NOTE | 2018-06-14 17:14 | CT ---
Date of service: 06/14/2018 PROCEDURE: CT Chest with contrast (Pulmonary Angiogram) HISTORY: R/O PE COMPARISON: 06/11/2018 TECHNIQUE: Axial computed tomography images were obtained of the chest in the pulmonary arterial phase of enhancement. Coronal and sagittal reformatted images were created and reviewed. Intravenous contrast dose: 100 mL Visipaque 320 Radiation dose: Total exam DLP = 461.65 mGy-cm. This CT exam was performed using one or more of the following dose reduction techniques: Automated exposure control, adjustment of the mA and/or kV according to patient size, and/or use of iterative reconstruction technique. FINDINGS: PULMONARY ARTERIES: Unremarkable. No pulmonary embolism. AORTA: No acute findings. No thoracic aortic aneurysm. LUNGS: Extensive right lower lobe consolidation/atelectasis. Mild right middle lobe atelectasis. Mild lingular atelectasis. Nonspecific ground-glass opacity in the left lower lobe and right upper lobe. More extensive ground-glass and reticular interstitial opacity in the left upper lobe. Nonspecific findings. Consider infectious etiology. This represents extensive change from prior CT examination at which time vague areas of patchy ground-glass opacity were seen bilaterally. Once again, there is a thin-walled cavity in the right upper lobe, measuring approximately 3.2 cm in greatest dimension. Nonspecific. No definite pulmonary mass identified on this examination. There is extensive secretion or fluid seen in the right lower lobe bronchus. Possible aspiration. There may be impacted secretions in the right upper lobe bronchus as well as communication with the mainstem bronchus is not demonstrated on this examination. PLEURAL SPACES: Unremarkable. No effusion or pneumothorax. HEART: Unremarkable. No cardiomegaly. No significant pericardial effusion. LYMPH NODES: Mild mediastinal and right hilar lymphadenopathy. BONES, CHEST WALL: Unremarkable. No fracture or destructive lesion OTHER FINDINGS: Unremarkable. IMPRESSION: No evidence of pulmonary embolism. Extensive right lower lobe consolidations/atelectasis with lesser atelectasis in the right middle lobe and lingula. Multifocal ground-glass opacity. Possible infectious etiology. Fluid/ secretion in right lower lobe bronchus and possibly and right upper lobe bronchus. Consider aspiration as etiology. Mild mediastinal and right hilar lymphadenopathy, nonspecific.
[2018-06-14] MEDS ORDERED: Dexmedetomidine Hydrochloride 400 MCG in Sodium Chloride 0.9% 96 ML IV PRN (17:15)
[2018-06-14] MEDS ORDERED: Midazolam 2 MG/2 ML VIAL ONE (18:48)
[2018-06-14] MEDS ORDERED: Etomidate 20 mg/10ml Inj IV ONE (19:17)
[2018-06-14] MEDS ORDERED: Midazolam 2 MG/2 ML VIAL IVP ONE (19:17)
[2018-06-14] MEDS ORDERED: Midazolam 2 MG/2 ML VIAL IVP PRN (19:18)
[2018-06-14] MEDS ORDERED: Albuterol-Ipratrop 3 mg / 0.5 (3 ml) UD INH STA (19:26)
[2018-06-14] MEDS: Propofol 10 mg/ml 1,000 MG/100 ML VIAL IV PRN (19:50)
[2018-06-14 20:11] LABS: BASO % 0.2 % (0.0-2.0); EOS # 0.1 K/uL (0.0-0.7); EOS % 0.5 % (0.0-4.0); HEMOGLOBIN 7.7 g/dL (12.0-18.0); LYMPH # 1.4 K/uL (1.0-4.3); LYMPH % 11.9 % (20.0-40.0); MEAN CELL VOLUME 92.7 fL (80.0-94.0); MEAN CORPUSCULAR HEMOGLOBIN 31.3 pg (27.0-31.0); MEAN CORPUSCULAR HGB CONC 33.7 g/dL (33.0-37.0); MEAN PLATELET VOLUME 7.4 fL (7.2-11.7); MONO # 1.8 K/uL (0.0-0.8); MONO % 14.9 % (0.0-10.0); NEUT # 8.8 K/uL (1.8-7.0); NEUT % 72.5 % (50.0-75.0); NRBC % 0.1 % (0.0-2.0); RBC 2.46 Mil/uL (4.40-5.90); WHITE BLOOD COUNT 12.1 K/uL (4.8-10.8)
--- NOTE | 2018-06-14 20:15 | PCM.PROC ---
Procedures Attestation:: I certify that I have explained the specified Operation(s) or Procedure(s), risks, benefits and reasonable alternatives to the Patient and/or other person responsible. The opportunity was given to ask questions and all questions answered - Intubation Time Out Performed: Yes Sedative: Etomidate, Versed Laryngoscope: Glidescope ET Tube Size: 7.5 ET Tube Secured at Depth: 21 ET Tube Secured Locarion: Teeth ET Tube Placement Confirmation: Visualized Passing Through Cords, Breath Sounds Equal Bilaterally Patient Tolerated Procedure: Well Procedure Immediate Complications: Hypotension, Hypoxia Additional comments: Pt was intubated using glidescope; 24 at the lip. Poor spo2 reading, with hypotension. NS 1L bolus started, with adequate response. Determined to be right mainstem bronchus intubation, retracted two cm. EET is 21 at the lip
[2018-06-14 20:43] LABS: ARTERIAL BLOOD GAS HCO3 14.8 mmol/L (21-28); ARTERIAL BLOOD GAS O2 SAT 83.4 % (95-98); ARTERIAL BLOOD GAS PCO2 29 mm/Hg (35-45); ARTERIAL BLOOD GAS PH 7.27 (7.35-7.45); ARTERIAL BLOOD GAS PO2 47 mm/Hg (80-100); ARTERIAL BLOOD GAS TCO2 14.2 mmol/L (22-28)
[2018-06-14] MEDS: Phenylephrine 30 MG in Sodium Chloride 0.9% 250 ML IV PRN (20:56)
--- NOTE | 2018-06-14 21:09 | RAD ---
HISTORY: s/p intubation COMPARISON: Chest x-ray performed 06/14/18 TECHNIQUE: Chest, one view. FINDINGS: Examination limited by habitus and patient obliquity. Endotracheal tube terminates approximately 3.3 cm above the lila. Left IJ approach central venous catheter extends expected location of the cavoatrial junction. LUNGS: Right lower lobe consolidation. Left basilar atelectasis/ infiltrate. Mild pulmonary venous congestion. Please note that chest x-ray has limited sensitivity for the detection of pulmonary masses. PLEURA: No significant pleural effusion identified. No definite pneumothorax . CARDIOVASCULAR: Partially obscured cardiac shadow. OSSEOUS STRUCTURES: Degenerative changes. VISUALIZED UPPER ABDOMEN: Left upper quadrant surgical clips. OTHER FINDINGS: None. IMPRESSION: Right lower lobe consolidation. Left basilar atelectasis/ infiltrate. Mild pulmonary venous congestion. Endotracheal tube. Left IJ approach central venous catheter.
[2018-06-14] MEDS: Vancomycin 1 gm/NS 200 ml 1 GM/200 ML BAG IVPB SCH (21:25)
[2018-06-15] MEDS: Propofol 10 mg/ml 1,000 MG/100 ML VIAL IV PRN ×3 (00:06→11:46)
[2018-06-15] MEDS: Albuterol-Ipratrop 3 mg / 0.5 (3 ml) UD INH SCH ×6 (00:20→20:39)
[2018-06-15] MEDS: Sodium Chloride 0.9% 1,000 ML IV SCH ×3 (00:49→21:35)
[2018-06-15 01:27] LABS: ALB/GLOB RATIO 0.9 (1.0-2.1); ALBUMIN 2.5 g/dL (3.5-5.0); ALT/SGPT 32 U/L (21-72); AST/SGOT 27 U/L (17-59); BLOOD UREA NITROGEN 6 mg/dL (9-20); CALCIUM 8.1 mg/dl (8.6-10.4); GFR NON-AFRICAN AMERICAN > 60
[2018-06-15] MEDS: MethylPREDNISolone 40 mg Vial IV SCH ×3 (04:44→22:51)
[2018-06-15] MEDS: Piperacill/Tazo 3.375gm in Dex 3.375 GM/50 ML BAG IVPB SCH ×4 (04:45→22:27)
[2018-06-15 05:09] LABS: ARTERIAL BLOOD GAS HCO3 17.6 mmol/L (21-28); ARTERIAL BLOOD GAS O2 SAT 99.4 % (95-98); ARTERIAL BLOOD GAS PCO2 26 mm/Hg (35-45); ARTERIAL BLOOD GAS PH 7.35 (7.35-7.45); ARTERIAL BLOOD GAS PO2 260 mm/Hg (80-100); ARTERIAL BLOOD GAS TCO2 15.2 mmol/L (22-28)
[2018-06-15 06:24] LABS: BASO % 0.1 % (0.0-2.0); HEMOGLOBIN 7.9 g/dL (12.0-18.0); LYMPH # 0.3 K/uL (1.0-4.3); LYMPH % 2.1 % (20.0-40.0); MEAN CELL VOLUME 92.3 fL (80.0-94.0); MEAN CORPUSCULAR HEMOGLOBIN 31.9 pg (27.0-31.0); MEAN CORPUSCULAR HGB CONC 34.6 g/dL (33.0-37.0); MEAN PLATELET VOLUME 7.5 fL (7.2-11.7); MONO # 0.5 K/uL (0.0-0.8); MONO % 3.5 % (0.0-10.0); NEUT # 12.3 K/uL (1.8-7.0); NEUT % 94.3 % (50.0-75.0); NRBC % 0.1 % (0.0-2.0); PLATELET COUNT 193 K/uL (130-400); RBC 2.46 Mil/uL (4.40-5.90); RED CELL DISTRIBUTION WIDTH 17.7 % (11.5-14.5)
--- NOTE | 2018-06-15 06:31 | CP.PCM.PN ---
Subjective - Date & Time of Evaluation Date of Evaluation: 06/15/18 Time of Evaluation: 06:26 - Subjective Subjective: Mr. Clancy was seen and examined at the bedside in the ICU. He is on mechanical ventilator on PRVC mode. He is currently receiving propofol for sedation, pupils sluggish 2 mm, breath over the vent. withdraws from any noxious stimuli. GCS-4T.He has an episode of respiratory distress yesterday which resulted for re -intubation. Objective - Vital Signs/Intake and Output Vital Signs (last 24 hours): Temp Pulse Resp BP Pulse Ox 98.4 F 92 H 19 127/76 100 06/15/18 04:00 06/15/18 06:20 06/15/18 06:20 06/15/18 06:20 06/15/18 06:20 Intake and Output: 06/14/18 06/15/18 18:59 06:59 Intake Total 1220.4 1937.3 Output Total 725 755 Balance 495.4 1182.3 - Medications Medications: Current Medications Albuterol/Ipratropium (Duoneb 3 Mg/0.5 Mg (3 Ml) Ud) 3 ml INH RQ4 [facility] Last Admin: 06/15/18 03:46 Dose: 3 ml Guaifenesin (Mucinex La) 600 mg PO BID [facility] Last Admin: 06/14/18 17:02 Dose: Not Given Levetiracetam 500 mg/ Dextrose 105 mls @ 420 mls/hr IVPB Q12H [facility] Last Admin: 06/14/18 19:32 Dose: 420 mls/hr Sodium Chloride (Sodium Chloride 0.9%) 1,000 mls @ 100 mls/hr IV .Q10H [facility] Last Admin: 06/15/18 00:49 Dose: Not Given Dexmedetomidine HCl 400 mcg/ (Sodium Chloride) 100 mls @ 2.63 mls/hr IV TITR PRN; Protocol; 0.2 MCG/KG/HR PRN Reason: Restlessness Last Admin: 06/15/18 01:45 Dose: 0.2 mcg/kg/hr, 2.63 mls/hr Propofol (Diprivan) 1,000 mg in 100 mls @ 1.442 mls/hr IV .Q24H PRN; Protocol; 5 MCG/KG/MIN PRN Reason: TITRATE PER MD ORDER Last Admin: 06/15/18 04:54 Dose: 70 mcg/kg/min, 20.194 mls/hr Norepinephrine Bitartrate 4 mg (/ Sodium Chloride) 254 mls @ 15.24 mls/hr IV .[id number] PRN; Protocol; 4 MCG/MIN PRN Reason: TITRATE PER MD ORDER Phenylephrine HCl 30 mg/ (Sodium Chloride) 253 mls @ 10.12 mls/hr IV .Q24H PRN ; Protocol; 20 MCG/MIN PRN Reason: TITRATE PER MD ORDER Last Admin: 06/14/18 20:56 Dose: 80 mcg/min, 40.48 mls/hr Piperacillin Sod/Tazobactam Sod (Zosyn 3.375 Gm Iv Premix) 3.375 gm in 50 mls @ 100 mls/hr IVPB Q6H [facility] PRN Reason: Protocol Last Admin: 06/15/18 04:45 Dose: 100 mls/hr Vancomycin/Sodium Chloride (Vancomycin 1 Gm/Ns 200 Ml) 1 gm in 200 mls @ 133 mls/hr IVPB Q12H [facility] PRN Reason: Protocol Stop: 06/19/18 21:01 Last Admin: 06/14/18 21:25 Dose: 133 mls/hr Lorazepam (Ativan) 1 mg IVP Q4H PRN PRN Reason: Anxiety Last Admin: 06/14/18 19:30 Dose: 1 mg Methylprednisolone (Solu-Medrol) 40 mg IV Q8H [facility] Last Admin: 06/15/18 04:44 Dose: 40 mg Midazolam HCl (Versed Inj) 2 mg IVP Q4 PRN PRN Reason: Agitation Pantoprazole Sodium (Protonix Inj) 40 mg IVP Q12 [facility] Last Admin: 06/14/18 21:26 Dose: 40 mg Sucralfate (Carafate Oral Susp) 1 gm PO QID [facility] Last Admin: 06/14/18 21:20 Dose: Not Given - Labs Labs: 06/14/18 20:06 06/15/18 00:37 PT 16.0 SECONDS (9.7-12.2) H 06/13/18 06:20 INR 1.5 06/13/18 06:20 APTT 40 SECONDS (21-34) H 06/10/18 23:37 - Constitutional Appears: No Acute Distress - Eye Exam Pupil Exam: Miosis Additional comments: 2 mm - Neurological Exam Neuro motor strength exam: Left Upper Extremity: 0, Right Upper Extremity: 0, Left Lower Extremity: 0, Right Lower Extremity: 0 Additional comments: GCS- 4T Assessment and Plan (1) Encephalopathy acute Assessment & Plan: Continue all current medical regimen. Pending EEG results, Recommend to let ICU team for vent. management, treat any electrolyte and HGB abnormalities, keep head of bed elevated at least 30 degrees. Status: Acute
--- NOTE | 2018-06-15 06:33 | CP.PCM.PN ---
<Lars Jenkins - Last Filed: 06/15/18 13:28> Subjective - Date & Time of Evaluation Date of Evaluation: 06/15/18 Time of Evaluation: 06:50 - Subjective Subjective: PGY-4 GI Fellow Prog Note Pt had increased work of breathing last night with eventually intubation. Continues to have some loose, black BMs though Hgb relatively stable without transfusions since Wednesday. Unable to obtain ROS due to clinical condition Objective - Vital Signs/Intake and Output Vital Signs (last 24 hours): Temp Pulse Resp BP Pulse Ox 98.4 F 92 H 19 127/76 100 06/15/18 04:00 06/15/18 06:20 06/15/18 06:20 06/15/18 06:20 06/15/18 06:20 Intake and Output: 06/14/18 06/15/18 18:59 06:59 Intake Total 1220.4 2068.8 Output Total 725 830 Balance 495.4 1238.8 - Medications Medications: Current Medications Albuterol/Ipratropium (Duoneb 3 Mg/0.5 Mg (3 Ml) Ud) 3 ml INH RQ4 [facility] Last Admin: 06/15/18 03:46 Dose: 3 ml Guaifenesin (Mucinex La) 600 mg PO BID [facility] Last Admin: 06/14/18 17:02 Dose: Not Given Levetiracetam 500 mg/ Dextrose 105 mls @ 420 mls/hr IVPB Q12H [facility] Last Admin: 06/14/18 19:32 Dose: 420 mls/hr Sodium Chloride (Sodium Chloride 0.9%) 1,000 mls @ 100 mls/hr IV .Q10H [facility] Last Admin: 06/15/18 00:49 Dose: Not Given Dexmedetomidine HCl 400 mcg/ (Sodium Chloride) 100 mls @ 2.63 mls/hr IV TITR PRN; Protocol; 0.2 MCG/KG/HR PRN Reason: Restlessness Last Admin: 06/15/18 01:45 Dose: 0.2 mcg/kg/hr, 2.63 mls/hr Propofol (Diprivan) 1,000 mg in 100 mls @ 1.442 mls/hr IV .Q24H PRN; Protocol; 5 MCG/KG/MIN PRN Reason: TITRATE PER MD ORDER Last Admin: 06/15/18 04:54 Dose: 70 mcg/kg/min, 20.194 mls/hr Norepinephrine Bitartrate 4 mg (/ Sodium Chloride) 254 mls @ 15.24 mls/hr IV .[id number] PRN; Protocol; 4 MCG/MIN PRN Reason: TITRATE PER MD ORDER Phenylephrine HCl 30 mg/ (Sodium Chloride) 253 mls @ 10.12 mls/hr IV .Q24H PRN ; Protocol; 20 MCG/MIN PRN Reason: TITRATE PER MD ORDER Last Admin: 06/14/18 20:56 Dose: 80 mcg/min, 40.48 mls/hr Piperacillin Sod/Tazobactam Sod (Zosyn 3.375 Gm Iv Premix) 3.375 gm in 50 mls @ 100 mls/hr IVPB Q6H [facility] PRN Reason: Protocol Last Admin: 06/15/18 04:45 Dose: 100 mls/hr Vancomycin/Sodium Chloride (Vancomycin 1 Gm/Ns 200 Ml) 1 gm in 200 mls @ 133 mls/hr IVPB Q12H [facility] PRN Reason: Protocol Stop: 06/19/18 21:01 Last Admin: 06/14/18 21:25 Dose: 133 mls/hr Lorazepam (Ativan) 1 mg IVP Q4H PRN PRN Reason: Anxiety Last Admin: 06/14/18 19:30 Dose: 1 mg Methylprednisolone (Solu-Medrol) 40 mg IV Q8H [facility] Last Admin: 06/15/18 04:44 Dose: 40 mg Midazolam HCl (Versed Inj) 2 mg IVP Q4 PRN PRN Reason: Agitation Pantoprazole Sodium (Protonix Inj) 40 mg IVP Q12 [facility] Last Admin: 06/14/18 21:26 Dose: 40 mg Sucralfate (Carafate Oral Susp) 1 gm PO QID [facility] Last Admin: 06/14/18 21:20 Dose: Not Given - Labs Labs: 06/15/18 06:14 06/15/18 00:37 PT 16.0 SECONDS (9.7-12.2) H 06/13/18 06:20 INR 1.5 06/13/18 06:20 APTT 40 SECONDS (21-34) H 06/10/18 23:37 - Constitutional Appears: Unkempt, Chronically Ill - Head Exam Additional comments: Intubated, sedated on vent - ENT Exam ENT Exam: Mucous Membranes Dry. absent: Mucous Membranes Moist, Normal External Ear Exam - Respiratory Exam Additional comments: Decreased breath sounds on R, mildly labored respirations with ET tube on vent. - Cardiovascular Exam Cardiovascular Exam: REGULAR RHYTHM, RRR - GI/Abdominal Exam GI & Abdominal Exam: Soft, Normal Bowel Sounds. absent: Distended, Firm, Guarding, Rigid Assessment and Plan - Assessment and Plan (Free Text) Assessment: 52yM with a h/o of alcohol abuse, seizure disorder with medication noncompliance , PUD with GI bleed and Bilroth II 5yrs ago at [facility], COPD. Pt presenting to the ER s/p PEA cardiopulmonary arrest. GI was consulted for anemia and GI bleeding. # Anemia, Upper GI Bleed, h/o Bilroth II: s/p EGD with PUD and ulcers with stigmata of recent hemorrhage. FC IIa (s/p APC and clips) and FC IIb (not intervened due to adverse location endoscopically. # Cardiopulmonary Arrest: Intubated on admission, since extubated and on BiPAP # Metabolic Acidosis, Hypokalemia, Hyponatremia: Pt with significant electrolyte abnormalities being corrected by Nephrology and Hospitalist # Seizure # Alcohol abuse Plan: -Cont supportive care, re-intubated overnight -OK for OG/NG placement for enteral feeding -Active GI bleeding resolved for now, off pressors, Hgb roughly stable, s/p 2U PRBCs on 06/11 -Cont to monitor H&H -Carafate 1g qid -IV PPI 40 mg IV BID -If pt develops further bleeding will need IR and Surgery on board, difficult to treat endoscopically -Will continue to follow pt closely Pt seen and examined with Dr. Ho <Kenrick Ho - Last Filed: 06/15/18 14:40> Objective - Vital Signs/Intake and Output Vital Signs (last 24 hours): Temp Pulse Resp BP Pulse Ox 98.5 F 108 H 27 H 123/69 100 06/15/18 12:00 06/15/18 14:00 06/15/18 14:00 06/15/18 13:20 06/15/18 14:00 Intake and Output: 06/15/18 06/15/18 06:59 18:59 Intake Total 2321.8 1016.0 Output Total 830 480 Balance 1491.8 536.0 - Medications Medications: Current Medications Albuterol/Ipratropium (Duoneb 3 Mg/0.5 Mg (3 Ml) Ud) 3 ml INH RQ4 [facility] Last Admin: 06/15/18 14:13 Dose: 3 ml Guaifenesin (Mucinex La) 600 mg PO BID [facility] Last Admin: 06/15/18 10:06 Dose: Not Given Levetiracetam 500 mg/ Dextrose 105 mls @ 420 mls/hr IVPB Q12H [facility] Last Admin: 06/15/18 07:15 Dose: 420 mls/hr Sodium Chloride (Sodium Chloride 0.9%) 1,000 mls @ 100 mls/hr IV .Q10H [facility] Last Admin: 06/15/18 00:49 Dose: Not Given Dexmedetomidine HCl 400 mcg/ (Sodium Chloride) 100 mls @ 2.63 mls/hr IV TITR PRN; Protocol; 0.2 MCG/KG/HR PRN Reason: Restlessness Last Admin: 06/15/18 01:45 Dose: 0.2 mcg/kg/hr, 2.63 mls/hr Propofol (Diprivan) 1,000 mg in 100 mls @ 1.442 mls/hr IV .Q24H PRN; Protocol; 5 MCG/KG/MIN PRN Reason: TITRATE PER MD ORDER Last Admin: 06/15/18 11:46 Dose: 50 mcg/kg/min, 14.424 mls/hr Norepinephrine Bitartrate 4 mg (/ Sodium Chloride) 254 mls @ 15.24 mls/hr IV .[id number] PRN; Protocol; 4 MCG/MIN PRN Reason: TITRATE PER MD ORDER Phenylephrine HCl 30 mg/ (Sodium Chloride) 253 mls @ 10.12 mls/hr IV .Q24H PRN ; Protocol; 20 MCG/MIN PRN Reason: TITRATE PER MD ORDER Last Titration: 06/15/18 13:00 Dose: 0 mcg/min, 0 mls/hr Piperacillin Sod/Tazobactam Sod (Zosyn 3.375 Gm Iv Premix) 3.375 gm in 50 mls @ 100 mls/hr IVPB Q6H [facility] PRN Reason: Protocol Last Admin: 06/15/18 11:41 Dose: 100 mls/hr Vancomycin/Sodium Chloride (Vancomycin 1 Gm/Ns 200 Ml) 1 gm in 200 mls @ 133 mls/hr IVPB Q12H [facility] PRN Reason: Protocol Stop: 06/19/18 21:01 Last Admin: 06/15/18 09:57 Dose: 133 mls/hr Multivitamins/Vitamin C 10 ml/Chromium/Copper/Manganese/Zinc 1 ml/ Heparin Sodium ( Porcine) 1,000 units/ Amino Acids/Electrolytes/Dextrose 1,012 mls @ 70 mls/hr IV .[id number] ONE Stop: 06/16/18 08:27 Chromium/Copper/Manganese/Zinc 1 ml/ Heparin Sodium (Porcine ) 1,000 units/ Amino Acids/Electrolytes/Dextrose 1,002 mls @ 70 mls/hr IV .[id number] ONE Stop: 06/16/18 22:48 Lorazepam (Ativan) 1 mg IVP Q4H PRN PRN Reason: Anxiety Last Admin: 06/14/18 19:30 Dose: 1 mg Methylprednisolone (Solu-Medrol) 40 mg IV Q8H [facility] Last Admin: 06/15/18 13:44 Dose: 40 mg Midazolam HCl (Versed Inj) 2 mg IVP Q4 PRN PRN Reason: Agitation Pantoprazole Sodium (Protonix Inj) 40 mg IVP Q12 [facility] Last Admin: 06/15/18 09:22 Dose: 40 mg Sucralfate (Carafate Oral Susp) 1 gm PO QID [facility] Last Admin: 06/15/18 13:41 Dose: Not Given - Labs Labs: 06/15/18 06:14 06/15/18 06:14 PT 16.0 SECONDS (9.7-12.2) H 06/13/18 06:20 INR 1.5 06/13/18 06:20 APTT 40 SECONDS (21-34) H 06/10/18 23:37 Attending/Attestation - Attestation I have personally seen and examined this patient.: Yes I have fully participated in the care of the patient.: Yes I have reviewed all pertinent clinical information, including history, physical exam and plan: Yes Notes (Text): 06/15/18 14:36 I have seen and examined patient with GI fellow. Events yesterday noted, patient reintubated for respiratory distress, remains sedated in intensive care unit. Two scant dark colored bowel movements noted overnight, none during day shift thus far. Review of vitals from today shows tachycardia. ETOH abuse Seizure disorder Cardiac arrest COPD H/O PUD s/p bilroth Anemia - s/p EGD showing two anastomotic ulcers s/p endoscopic therapy - Continue with PPI, carafate therapy - H/H stable, has not required PRBC transfusion in past 72 hours, continue to monitor - Ventilator management as per critical care team - Can gently place OGT to initiate tube feeding - Will continue to monitor patient clinical course
[2018-06-15 06:46] LABS: ALB/GLOB RATIO 0.9 (1.0-2.1); ALBUMIN 2.5 g/dL (3.5-5.0); ALT/SGPT 37 U/L (21-72); AST/SGOT 23 U/L (17-59); BLOOD UREA NITROGEN 6 mg/dL (9-20); CALCIUM 8.1 mg/dl (8.6-10.4); GFR NON-AFRICAN AMERICAN > 60
[2018-06-15] MEDS: Phenylephrine 30 MG in Sodium Chloride 0.9% 250 ML IV PRN (07:14)
[2018-06-15 08:15] LABS: LYMPHOCYTE 2 % (20-40); MONOCYTE 2 % (0-10); NEUTROPHIL 96 % (50-75); PLATELET ESTIMATE NORMAL (NORMAL); TOTAL CELLS COUNTED 100
[2018-06-15 08:16] LABS: ANISOCYTOSIS SLIGHT; BURR CELLS MODERATE; HYPOCHROMIC SLIGHT; MICROCYTOSIS SLIGHT; POIKILOCYTOSIS SLIGHT; POLYCHROMIC SLIGHT; TARGET CELLS SLIGHT
[2018-06-15] MEDS: Magnesium Sulfate 1 gm in D5W 1 GM/100 ML BAG IVPB SCH ×2 (08:40→09:25)
--- NOTE | 2018-06-15 08:41 | CP.PCM.PN ---
Subjective - Date & Time of Evaluation Date of Evaluation: 06/15/18 Time of Evaluation: 08:15 - Subjective Subjective: Hospitalist Progress Note Patient was seen and examined at 8:15 AM 06/15/18 ICU Bed 15 Since my exam on 06/14/18, patient respiratory status declined and he required being intubated and placement on Vent. He is also currently on Diprivan and Solumedrol 40 mg IV Q8H Spoke with Speech Therapist Marisol on 06/14/18 for the swallow evaluation and she stated that due to his respiratory status being on BiPap at the time and his respiratory difficulty without it, she did not recommend attempting swallow evaluation at that time. ICU Team will have to start TPN on this patient through Left IJ: Clinim[employer]. Once he is able to pass swallow evaluation, he will need to be started on Carafate for his Gastric Ulcers Zosyn 3.375 gm IV Q6H and Vancomycin 1 gm IV Q12H for his Bilateral Pneumonia F/U Vancomycin Trough 06/16/18 at 8:30 AM with goal trough between 15 and 20 Repeat Blood Culture 06/12/18 and Urine Culture 06/13/18 are negative to date HgB/Hct are relatively stable Magnesium 1 gm IV x 2 doses ordered for morning 06/15/18 See Assessment and Plans below for further details General: Patient is nonresponsive intubated on vent and Diprivan HEENT: NCA, Pupils are round and reactive to light sluggishly, NO lymphadenopathy, NO thyromegaly Cardio: heart sounds are very faint however this exam is limited (NS1 and NS2, NO M/R/G) Respiratory: Course breath sounds difusely GI: BSx4, Soft, NO HSM, NO guarding/rebound tenderness, ND Ext: Radial pulses are strong and equal, Pedal pulses are weak, NO edema, Capillary Refill is 3 seconds, Bilateral lower legs with multiple round dry eschars, 1). Cardiopulmonary Arrest Assessment/Plan * Cardiology Dr. Iglesias special distribution clerk-->help appreciated * PEA s/p ROSC NSR * Echocardiogram (06/12/18): ejection fraction: 45-50%, left ventricular diastolic function is abnormal. left atrium size looks normal right atrium size looks normal. trace to mild tricupsid regurgitaton 2). Hyponatremia Assessment/Plan * Nephrology Dr. Shafer on board-->help appreciated * Secondary to Alcohol Abuse * Received 3 NS boluses in ER * Seizure precautions * Normalized 3). Hypokalemia/Hypomagnesemia/Hypophosphotemia Assessment/Plan * Replete as needed 4). Metabolic Acidosis Assessment/Plan * Likely secondary to the Cadriopulmonary Arrest, GI bleed, Respiratory Distress * Worsened since his intubation 5). Seizure Assessment/Plan * Neurology Dr. Richie Rubi on board-->help appreciated * Risk factor: heavy alcohol use and hyponatremia, hypomagnesium * Head CT (06/11/18): no acute intracranial abnormality. Chronic microvascular ischemic changes. sinus mucosal disease as above * He has a history of alcohol withdrawal seizures * Keppra 500 mg IV Q12H * Recommend EEG if mental status does not improve after extubation 6). Anemia likely secondary to GI Bleed History of Peptic Ulcer Disease Bleeding Ulcer Assessment/Plan * GI Dr. Ho on consult help appreciated * CT Chest/abdomen/pelvis (06/12/18): distended bowel suggesting an ileus. Markedly limited evaluation of the bowel without oral or intravenous contrast. Suggestion of prior Bilroth 2 procedure. Fluid filled dilatation of small bowel andproximal colon. Fluid filled dilatation of the small bowel and prozimal colon. Fluid in the descending colon without a sharp transition sozne. Portions of transverse colon were not well visualized. * NPO except medications today. Continue Protonix infusion, add liquid carafate , 1 gm via NGT qid. * Hgb stable this am s/p 2U PRBCs * Monitor H/H and transfuse as needed * Carafate 1g qid once he is extubated and able to pass swallow evaluation * S/P EGD POD2: 2 anastomotic ulcers with visible vessel s/p APC and 5 clips, one ulcer with visible vessel and adherent clot was not intervened on due to adverse location--->If pt develops further bleeding will need IR and Surgery on board, difficult to treat endoscopically * Monitor H/H * No NSAIDS and strong history of alcohol abuse 7). Hypocalcemia Assessment/Plan * Monitor 8). Acute Respiratory Failure Assessment/Plan * Extubated 06/12/18 and Re-intubated on 06/14/18 * Management per ICU * Noted rib fractures * Patient is on Zosyn and Vancomycin to cover for bilateral pneumonia * Solumedrol 40 mg IV Q8H 9) Open Wounds on Sacrum Assessment/Plan * Turn [id number] * Wound care pending evaluation 10) Bilateral Anterior Rib and Sternal Fractures Assessment/Plan * Noted on CT Chest * Secondary to CPR given cardiopulmonary arrest 11) Pneumonia Assessment/Plan * CT Chest 06/11/18: thinned walled cavity in the right upper lobe which may be the sequelae of prior infection 5mm subpleural nodule within the anterior right middle lobe. Focal consolidation within the inferior right middle lobe. Focal consolidation within the right lower lobe. Patchy ground glass opacities in both lungs which and nonspecific but may secondary to alectasis versus contusion versus pneumonitis. * Zosyn 3.375g IV Q8H (active since 06/11/18) and Vancomycin 1 gm IV Q12H ( active since 06/14/18) * F/U Vancomycin Trough at 8:30 AM 06/16/18 with goal trough between 15 and 20 12) Urinary tract infection * Zosyn 3.375g IV Q8H (active since 06/11/18) * Repeat urine culture 06/13/18 showed NO growth 13) Bacteremia * Repeat blood culture 06/12/18 is negative to date 14) Alcoholism * Hx heavy use * On Ativan PRN and Precedex 15) Prophylactic measure * Protonix 40 mg IV Q12H * Chemical anticoagulation held secondary to GI bleed * Turn [id number] * Aspiration precautions * Seizure precautions * Wound care on board Prem Noland D.O. Objective - Vital Signs/Intake and Output Vital Signs (last 24 hours): Temp Pulse Resp BP Pulse Ox 99 F 92 H 17 115/70 100 06/15/18 08:00 06/15/18 08:00 06/15/18 08:00 06/15/18 07:20 06/15/18 08:00 Intake and Output: 06/15/18 06/15/18 06:59 18:59 Intake Total 2321.8 297.0 Output Total 830 135 Balance 1491.8 162.0 - Medications Medications: Current Medications Albuterol/Ipratropium (Duoneb 3 Mg/0.5 Mg (3 Ml) Ud) 3 ml INH RQ4 [facility] Last Admin: 06/15/18 07:05 Dose: 3 ml Guaifenesin (Mucinex La) 600 mg PO BID [facility] Last Admin: 06/14/18 17:02 Dose: Not Given Levetiracetam 500 mg/ Dextrose 105 mls @ 420 mls/hr IVPB Q12H [facility] Last Admin: 06/15/18 07:15 Dose: 420 mls/hr Sodium Chloride (Sodium Chloride 0.9%) 1,000 mls @ 100 mls/hr IV .Q10H [facility] Last Admin: 06/15/18 00:49 Dose: Not Given Dexmedetomidine HCl 400 mcg/ (Sodium Chloride) 100 mls @ 2.63 mls/hr IV TITR PRN; Protocol; 0.2 MCG/KG/HR PRN Reason: Restlessness Last Admin: 06/15/18 01:45 Dose: 0.2 mcg/kg/hr, 2.63 mls/hr Propofol (Diprivan) 1,000 mg in 100 mls @ 1.442 mls/hr IV .Q24H PRN; Protocol; 5 MCG/KG/MIN PRN Reason: TITRATE PER MD ORDER Last Titration: 06/15/18 07:16 Dose: 50 mcg/kg/min, 14.424 mls/hr Norepinephrine Bitartrate 4 mg (/ Sodium Chloride) 254 mls @ 15.24 mls/hr IV .[id number] PRN; Protocol; 4 MCG/MIN PRN Reason: TITRATE PER MD ORDER Phenylephrine HCl 30 mg/ (Sodium Chloride) 253 mls @ 10.12 mls/hr IV .Q24H PRN ; Protocol; 20 MCG/MIN PRN Reason: TITRATE PER MD ORDER Last Admin: 06/15/18 07:14 Dose: 29.64 mcg/min, 15 mls/hr Piperacillin Sod/Tazobactam Sod (Zosyn 3.375 Gm Iv Premix) 3.375 gm in 50 mls @ 100 mls/hr IVPB Q6H [facility] PRN Reason: Protocol Last Admin: 06/15/18 04:45 Dose: 100 mls/hr Vancomycin/Sodium Chloride (Vancomycin 1 Gm/Ns 200 Ml) 1 gm in 200 mls @ 133 mls/hr IVPB Q12H [facility] PRN Reason: Protocol Stop: 06/19/18 21:01 Last Admin: 06/14/18 21:25 Dose: 133 mls/hr Lorazepam (Ativan) 1 mg IVP Q4H PRN PRN Reason: Anxiety Last Admin: 06/14/18 19:30 Dose: 1 mg Methylprednisolone (Solu-Medrol) 40 mg IV Q8H [facility] Last Admin: 06/15/18 04:44 Dose: 40 mg Midazolam HCl (Versed Inj) 2 mg IVP Q4 PRN PRN Reason: Agitation Pantoprazole Sodium (Protonix Inj) 40 mg IVP Q12 [facility] Last Admin: 06/14/18 21:26 Dose: 40 mg Sucralfate (Carafate Oral Susp) 1 gm PO QID [facility] Last Admin: 06/14/18 21:20 Dose: Not Given - Labs Labs: 06/15/18 06:14 06/15/18 06:14 PT 16.0 SECONDS (9.7-12.2) H 06/13/18 06:20 INR 1.5 06/13/18 06:20 APTT 40 SECONDS (21-34) H 06/10/18 23:37
[2018-06-15] MEDS: Vancomycin 1 gm/NS 200 ml 1 GM/200 ML BAG IVPB SCH ×2 (09:57→21:13)
[2018-06-15] MEDS: Sucralfate 1 gm/10 ml Oral Susp UD PO SCH ×4 (10:05→21:13)
[2018-06-15] MEDS: guaiFENesin 600 mg ER Tab PO SCH ×2 (10:06→18:59)
--- NOTE | 2018-06-15 12:03 | RAD ---
Date of service: 06/15/2018 HISTORY: f/u COMPARISON: No prior. FINDINGS: LUNGS: Left basilar opacity. Possible pneumonia. No significant interval change right perihilar opacity. Significant improvement in right pleural effusion. No basilar consolidation appreciated. PLEURA: Right pleural effusion has resolved since prior examination. No left pleural effusion. No pneumothorax. CARDIOVASCULAR: Normal heart size. No congestive change. ET tube and left IJ central venous catheter are unchanged in position. OSSEOUS STRUCTURES: No significant abnormalities. VISUALIZED UPPER ABDOMEN: Normal. OTHER FINDINGS: None. IMPRESSION: Right perihilar and left basilar opacities. Possible pneumonia. Resolved right pleural effusion.
--- NOTE | 2018-06-15 12:20 | CP.CCUPN ---
<Melvin Martínez - Last Filed: 06/15/18 18:04> CCU Subjective - Physician Review Subjective (Free Text): Melvin Martínez DO PGY-1, ICU progress note for Dr. Morfin Pt was seen and examined at bedside. ROS is unable to be obtained as pt is intubated and sedated on propofol. Pt remains on levophed gtt. Nurse reports that pt had 3 loose black bowel movements overnight. GI has been made aware. Pt remains afebrile. Urine output is 830 mL over the past 12 hours. CCU Objective - Vital Signs / Intake & Output Vital Signs (Last 4 hours): Vital Signs Pulse Resp BP Pulse Ox 06/15/18 12:00 96 H 23 100 06/15/18 11:20 97 H 19 139/77 100 06/15/18 11:00 97 H 23 100 06/15/18 10:20 100 H 25 H 129/74 100 06/15/18 10:00 101 H 30 H 100 06/15/18 09:20 101 H 25 H 132/76 100 06/15/18 09:00 104 H 26 H 100 Intake and Output (Last 8hrs): Intake & Output 06/14/18 06/15/18 06/15/18 22:59 06:59 14:59 Intake Total 1153.6 1555.0 941.0 Output Total 520 550 330 Balance 633.6 1005.0 611.0 Weight 49.442 kg Intake: IV 453 100 Intake, IV Amount 1153.6 1102.0 841.0 LEFT IJ DISTAL PORT 88.8 152 66 LEFT IJ MEDIAL PORT 883 850 700 LEFT IJ PROXIMAL PORT 181.8 100.0 75.0 Output: Urine 520 550 330 Urethral (Griffith) 520 550 330 Other: # Bowel Movements 1 1 1 - Physical Exam Head: Positive for: Atraumatic, Normocephalic Pupils: Positive for: PERRL Extroacular Muscles: Negative for: EOMI (intubated and sedated) Conjunctiva: Positive for: Normal Mouth: Positive for: Moist Mucous Membranes, Other ((+) ETT) Nose (Internal): Positive for: Normal Inspection, Other ((+) NGT) Neck: Positive for: Normal Range of Motion Respiratory/Chest: Positive for: Wheezes (scattered wheezing in the left lung nolan), Decreased Breath Sounds ((+) decreased breah sounds at the right base, ), Rhonchi ((+) ronchi at the right upper lung field). Negative for: Good Air Exchange Cardiovascular: Positive for: Normal S1, S2, Tachycardic Abdomen: Positive for: Normal Bowel Sounds. Negative for: Tenderness (unable to assess as pt is intubated and sedated; abdomen is soft), Distention Upper Extremity: Positive for: Normal Inspection. Negative for: Edema Lower Extremity: Positive for: Normal Inspection. Negative for: Edema Neurological: Positive for: Other (intubated and sedated). Negative for: GCS= 15 (pt intubated and sedated GCS 3t) Skin: Positive for: Warm, Dry, Normal Color Psychiatric: Positive for: Other (intubated and sedated) - Medications Active Medications: Active Medications Generic Name Dose Route Start Last Admin Trade Name Freq PRN Reason Stop Dose Admin Albuterol/Ipratropium 3 ml 06/15/18 00:00 06/15/18 07:05 Duoneb 3 Mg/0.5 Mg (3 Ml) Ud INH 3 ml RQ4 MAYANK Administration Guaifenesin 600 mg 06/14/18 10:00 06/15/18 10:06 Mucinex La PO Not Given BID MAYANK Levetiracetam 500 mg/ Dextrose 105 mls @ 420 mls/hr 06/11/18 07:30 06/15/18 07:15 IVPB 420 mls/hr Q12H MAYANK Administration Sodium Chloride 1,000 mls @ 100 mls/hr 06/14/18 14:33 06/15/18 00:49 Sodium Chloride 0.9% IV Not Given .Q10H MAYANK Dexmedetomidine HCl 400 mcg/ 100 mls @ 2.63 mls/hr 06/14/18 17:15 06/15/18 01 :45 Sodium Chloride IV 0.2 mcg/kg/hr TITR PRN 2.63 mls/hr Restlessness Administration Protocol 0.2 MCG/KG/HR Propofol 1,000 mg in 100 mls @ 1.442 mls/hr 06/14/18 19:02 06/15/18 11:46 Diprivan IV 50 mcg/kg/min .Q24H PRN 14.424 mls/hr TITRATE PER MD ORDER Administration Protocol 5 MCG/KG/MIN Norepinephrine Bitartrate 4 mg 254 mls @ 15.24 mls/hr 06/14/18 19:54 / Sodium Chloride IV .[id number] PRN TITRATE PER MD ORDER Protocol 4 MCG/MIN Phenylephrine HCl 30 mg/ 253 mls @ 10.12 mls/hr 06/14/18 20:11 06/15/18 07:14 Sodium Chloride IV 29.64 mcg/min .Q24H PRN 15 mls/hr TITRATE PER MD ORDER Administration Protocol 20 MCG/MIN Piperacillin Sod/Tazobactam Sod 3.375 gm in 50 mls @ 100 mls/hr 06/14/18 23: 00 06/15/18 11:41 Zosyn 3.375 Gm Iv Premix IVPB 100 mls/hr Q6H MAYANK Administration Protocol Vancomycin/Sodium Chloride 1 gm in 200 mls @ 133 mls/hr 06/14/18 21:00 09:57 Vancomycin 1 Gm/Ns 200 Ml IVPB 06/19/18 21:01 133 mls/hr Q12H MAYANK Administration Protocol Multivitamins/Vitamin C 10 ml/ 1,012 mls @ 70 mls/hr 06/15/18 18:00 Chromium/Copper/Manganese/ IV 06/16/18 08:27 Zinc 1 ml/ Heparin Sodium ( .[id number] ONE Porcine) 1,000 units/ Amino Acids/Electrolytes/Dextrose Chromium/Copper/Manganese/Zinc 1,002 mls @ 70 mls/hr 06/16/18 08:30 1 ml/ Heparin Sodium (Porcine IV 06/16/18 22:48 ) 1,000 units/ Amino Acids/ .[id number] ONE Electrolytes/Dextrose Lorazepam 1 mg 06/13/18 17:15 06/14/18 19:30 Ativan IVP 1 mg Q4H PRN Administration Anxiety Methylprednisolone 40 mg 06/15/18 05:00 06/15/18 04:44 Solu-Medrol IV 40 mg Q8H MAYANK Administration Midazolam HCl 2 mg 06/14/18 19:18 Versed Inj IVP Q4 PRN Agitation Pantoprazole Sodium 40 mg 06/14/18 10:00 06/15/18 09:22 Protonix Inj IVP 40 mg Q12 MAYANK Administration Sucralfate 1 gm 06/11/18 18:00 06/15/18 10:05 Carafate Oral Susp PO Not Given QID MAYANK - Patient Studies Lab Studies: Microbiology Studies 06/12/18 22:42 Blood Culture - Preliminary Blood NO GROWTH AFTER 48 HOURS 06/12/18 22:42 Blood Culture - Preliminary Blood NO GROWTH AFTER 48 HOURS 06/11/18 17:15 Blood Culture - Preliminary Blood-Venous NO GROWTH AFTER 3 DAYS 06/11/18 17:00 S.aureus & Coag-Neg Staph PNA FISH - Final Blood-Venous Blood Culture - Final Coagulase Neg Staphylococcus Gram Stain - Final Lab Studies 06/15/18 06/15/18 06/15/18 Range/Units 09:07 06:14 06:14 WBC 13.0 H (4.8-10.8) K/uL RBC 2.46 L (4.40-5.90) Mil/uL Hgb 7.9 L (12.0-18.0) g/dL Hct 22.7 L (35.0-51.0) % MCV 92.3 (80.0-94.0) fL MCH 31.9 H (27.0-31.0) pg MCHC 34.6 (33.0-37.0) g/dL RDW 17.7 H (11.5-14.5) % Plt Count 193 (130-400) K/uL MPV 7.5 (7.2-11.7) fL Neut % (Auto) 94.3 H (50.0-75.0) % Lymph % (Auto) 2.1 L (20.0-40.0) % Bonner % (Auto) 3.5 (0.0-10.0) % Eos % (Auto) 0.0 (0.0-4.0) % Baso % (Auto) 0.1 (0.0-2.0) % Neut # (Auto) 12.3 H (1.8-7.0) K/uL Lymph # (Auto) 0.3 L (1.0-4.3) K/uL Bonner # (Auto) 0.5 (0.0-0.8) K/uL Eos # (Auto) 0.0 (0.0-0.7) K/uL Baso # (Auto) 0.0 (0.0-0.2) K/uL Neutrophils % (Manual) 96 H (50-75) % Lymphocytes % (Manual) 2 L (20-40) % Monocytes % (Manual) 2 (0-10) % Platelet Estimate Normal (NORMAL) Polychromasia Slight Hypochromasia (manual) Slight Poikilocytosis (manual Slight Anisocytosis (manual) Slight Microcytosis (manual) Slight Macrocytosis (manual) Slight Target Cells Slight Tra Cells Moderate Puncture Site pCO2 (35-45) mm/Hg pO2 (80-100) mm/Hg HCO3 (21-28) mmol/L ABG pH (7.35-7.45) ABG Total CO2 (22-28) mmol/L ABG O2 Saturation (95-98) % ABG Base Excess (-2.0-3.0) mmol/L Bob Test ABG Potassium (3.6-5.2) mmol/L A-a O2 Difference mm/Hg Respiratory Index Sodium 139 (132-148) mmol/l Chloride 110 H (98-107) mmol/L Glucose (75-110) mg/dl Lactate (0.7-2.1) mmol/L Vent Mode Mechanical Rate FiO2 % Tidal Volume PEEP Potassium 3.7 (3.6-5.2) mmol/L Carbon Dioxide 15 L (22-30) mmol/L Anion Gap 17 (10-20) BUN 6 L (9-20) mg/dL Creatinine 0.7 L (0.8-1.5) mg/dL Est GFR ( Amer) > 60 Est GFR (Non-Af Amer) > 60 Random Glucose 149 H (75-110) mg/dL Lactic Acid (0.7-2.1) mmol/L Calcium 8.1 L (8.6-10.4) mg/dl Phosphorus 3.7 (2.5-4.5) mg/dL Magnesium 1.3 L (1.6-2.3) mg/dL Total Bilirubin 0.4 (0.2-1.3) mg/dL AST 23 (17-59) U/L ALT 37 (21-72) U/L Alkaline Phosphatase 69 (38-126) U/L Troponin I (0.00-0.120) ng/mL Total Protein 5.4 L (6.3-8.3) g/dL Albumin 2.5 L (3.5-5.0) g/dL Globulin 2.8 (2.2-3.9) gm/dL Albumin/Globulin Ratio 0.9 L (1.0-2.1) Arterial Blood Potassium (3.6-5.2) mmol/L Vancomycin Trough 8.7 (5.0-10.0) ug/mL 06/15/18 06/15/18 06/15/18 Range/Units 05:00 00:37 00:37 WBC (4.8-10.8) K/uL RBC (4.40-5.90) Mil/uL Hgb (12.0-18.0) g/dL Hct (35.0-51.0) % MCV (80.0-94.0) fL MCH (27.0-31.0) pg MCHC (33.0-37.0) g/dL RDW (11.5-14.5) % Plt Count (130-400) K/uL MPV (7.2-11.7) fL Neut % (Auto) (50.0-75.0) % Lymph % (Auto) (20.0-40.0) % Bonner % (Auto) (0.0-10.0) % Eos % (Auto) (0.0-4.0) % Baso % (Auto) (0.0-2.0) % Neut # (Auto) (1.8-7.0) K/uL Lymph # (Auto) (1.0-4.3) K/uL Bonner # (Auto) (0.0-0.8) K/uL Eos # (Auto) (0.0-0.7) K/uL Baso # (Auto) (0.0-0.2) K/uL Neutrophils % (Manual) (50-75) % Lymphocytes % (Manual) (20-40) % Monocytes % (Manual) (0-10) % Platelet Estimate (NORMAL) Polychromasia Hypochromasia (manual) Poikilocytosis (manual Anisocytosis (manual) Microcytosis (manual) Macrocytosis (manual) Target Cells Irvine Cells Puncture Site Rb pCO2 26 L (35-45) mm/Hg pO2 260 H (80-100) mm/Hg HCO3 17.6 L (21-28) mmol/L ABG pH 7.35 (7.35-7.45) ABG Total CO2 15.2 L (22-28) mmol/L ABG O2 Saturation 99.4 H (95-98) % ABG Base Excess -9.5 L (-2.0-3.0) mmol/L Bob Test Na ABG Potassium 3.6 (3.6-5.2) mmol/L A-a O2 Difference 421.0 mm/Hg Respiratory Index 1.6 Sodium 137.0 138 (132-148) mmol/l Chloride 112.0 H 111 H (98-107) mmol/L Glucose 150 H (75-110) mg/dl Lactate 1.2 (0.7-2.1) mmol/L Vent Mode Prvc Mechanical Rate 16 FiO2 100.0 % Tidal Volume 420 PEEP 9 Potassium 4.1 (3.6-5.2) mmol/L Carbon Dioxide 14 L (22-30) mmol/L Anion Gap 17 (10-20) BUN 6 L (9-20) mg/dL Creatinine 0.7 L (0.8-1.5) mg/dL Est GFR ( Amer) > 60 Est GFR (Non-Af Amer) > 60 Random Glucose 118 H (75-110) mg/dL Lactic Acid 1.2 (0.7-2.1) mmol/L Calcium 8.1 L (8.6-10.4) mg/dl Phosphorus 3.4 (2.5-4.5) mg/dL Magnesium 1.3 L (1.6-2.3) mg/dL Total Bilirubin 0.4 (0.2-1.3) mg/dL AST 27 (17-59) U/L ALT 32 (21-72) U/L Alkaline Phosphatase 74 (38-126) U/L Troponin I < 0.0120 (0.00-0.120) ng/mL Total Protein 5.3 L (6.3-8.3) g/dL Albumin 2.5 L (3.5-5.0) g/dL Globulin 2.8 (2.2-3.9) gm/dL Albumin/Globulin Ratio 0.9 L (1.0-2.1) Arterial Blood Potassium 3.6 (3.6-5.2) mmol/L Vancomycin Trough (5.0-10.0) ug/mL 08/21/18 08/21/18 Range/Units 20:20 20:06 WBC 12.1 H (4.8-10.8) K/uL RBC 2.46 L (4.40-5.90) Mil/uL Hgb 7.7 L (12.0-18.0) g/dL Hct 22.8 L (35.0-51.0) % MCV 92.7 (80.0-94.0) fL MCH 31.3 H (27.0-31.0) pg MCHC 33.7 (33.0-37.0) g/dL RDW 18.0 H (11.5-14.5) % Plt Count 154 (130-400) K/uL MPV 7.4 (7.2-11.7) fL Neut % (Auto) 72.5 (50.0-75.0) % Lymph % (Auto) 11.9 L (20.0-40.0) % Bonner % (Auto) 14.9 H (0.0-10.0) % Eos % (Auto) 0.5 (0.0-4.0) % Baso % (Auto) 0.2 (0.0-2.0) % Neut # (Auto) 8.8 H (1.8-7.0) K/uL Lymph # (Auto) 1.4 (1.0-4.3) K/uL Bonner # (Auto) 1.8 H (0.0-0.8) K/uL Eos # (Auto) 0.1 (0.0-0.7) K/uL Baso # (Auto) 0.0 (0.0-0.2) K/uL Neutrophils % (Manual) (50-75) % Lymphocytes % (Manual) (20-40) % Monocytes % (Manual) (0-10) % Platelet Estimate (NORMAL) Polychromasia Hypochromasia (manual) Poikilocytosis (manual Anisocytosis (manual) Microcytosis (manual) Macrocytosis (manual) Target Cells Irvine Cells Puncture Site Rb pCO2 29 L (35-45) mm/Hg pO2 47 L (80-100) mm/Hg HCO3 14.8 L (21-28) mmol/L ABG pH 7.27 L (7.35-7.45) ABG Total CO2 14.2 L (22-28) mmol/L ABG O2 Saturation 83.4 L (95-98) % ABG Base Excess -12.2 L (-2.0-3.0) mmol/L Bob Test Na ABG Potassium 3.7 (3.6-5.2) mmol/L A-a O2 Difference 630.0 mm/Hg Respiratory Index 13.4 Sodium 136.0 (132-148) mmol/l Chloride 110.0 H (98-107) mmol/L Glucose 99 (75-110) mg/dl Lactate 1.5 (0.7-2.1) mmol/L Vent Mode Prvc Mechanical Rate 16 FiO2 100.0 % Tidal Volume 450 PEEP 10 Potassium (3.6-5.2) mmol/L Carbon Dioxide (22-30) mmol/L Anion Gap (10-20) BUN (9-20) mg/dL Creatinine (0.8-1.5) mg/dL Est GFR ( Amer) Est GFR (Non-Af Amer) Random Glucose (75-110) mg/dL Lactic Acid (0.7-2.1) mmol/L Calcium (8.6-10.4) mg/dl Phosphorus (2.5-4.5) mg/dL Magnesium (1.6-2.3) mg/dL Total Bilirubin (0.2-1.3) mg/dL AST (17-59) U/L ALT (21-72) U/L Alkaline Phosphatase (38-126) U/L Troponin I (0.00-0.120) ng/mL Total Protein (6.3-8.3) g/dL Albumin (3.5-5.0) g/dL Globulin (2.2-3.9) gm/dL Albumin/Globulin Ratio (1.0-2.1) Arterial Blood Potassium 3.7 (3.6-5.2) mmol/L Vancomycin Trough (5.0-10.0) ug/mL Laboratory Results - last 24 hr 06/14/18 06/14/18 06/15/18 20:06 20:20 00:37 WBC 12.1 H RBC 2.46 L Hgb 7.7 L Hct 22.8 L MCV 92.7 MCH 31.3 H MCHC 33.7 RDW 18.0 H Plt Count 154 MPV 7.4 Neut % (Auto) 72.5 Lymph % (Auto) 11.9 L Bonner % (Auto) 14.9 H Eos % (Auto) 0.5 Baso % (Auto) 0.2 Neut # (Auto) 8.8 H Lymph # (Auto) 1.4 Bonner # (Auto) 1.8 H Eos # (Auto) 0.1 Baso # (Auto) 0.0 Neutrophils % (Manual) Lymphocytes % (Manual) Monocytes % (Manual) Platelet Estimate Polychromasia Hypochromasia (manual) Poikilocytosis (manual Anisocytosis (manual) Microcytosis (manual) Macrocytosis (manual) Target Cells Irvine Cells Puncture Site Rb pCO2 29 L pO2 47 L HCO3 14.8 L ABG pH 7.27 L ABG Total CO2 14.2 L ABG O2 Saturation 83.4 L ABG Base Excess -12.2 L Bob Test Na ABG Potassium 3.7 A-a O2 Difference 630.0 Respiratory Index 13.4 Sodium 136.0 138 Chloride 110.0 H 111 H Glucose 99 Lactate 1.5 Vent Mode Prvc Mechanical Rate 16 FiO2 100.0 Tidal Volume 450 PEEP 10 Potassium 4.1 Carbon Dioxide 14 L Anion Gap 17 BUN 6 L Creatinine 0.7 L Est GFR ( Amer) > 60 Est GFR (Non-Af Amer) > 60 Random Glucose 118 H Lactic Acid Calcium 8.1 L Phosphorus 3.4 Magnesium 1.3 L Total Bilirubin 0.4 AST 27 ALT 32 Alkaline Phosphatase 74 Troponin I < 0.0120 Total Protein 5.3 L Albumin 2.5 L Globulin 2.8 Albumin/Globulin Ratio 0.9 L Arterial Blood Potassium 3.7 Vancomycin Trough 06/15/18 06/15/18 06/15/18 00:37 05:00 06:14 WBC RBC Hgb Hct MCV MCH MCHC RDW Plt Count MPV Neut % (Auto) Lymph % (Auto) Bonner % (Auto) Eos % (Auto) Baso % (Auto) Neut # (Auto) Lymph # (Auto) Bonner # (Auto) Eos # (Auto) Baso # (Auto) Neutrophils % (Manual) Lymphocytes % (Manual) Monocytes % (Manual) Platelet Estimate Polychromasia Hypochromasia (manual) Poikilocytosis (manual Anisocytosis (manual) Microcytosis (manual) Macrocytosis (manual) Target Cells Irvine Cells Puncture Site Rb pCO2 26 L pO2 260 H HCO3 17.6 L ABG pH 7.35 ABG Total CO2 15.2 L ABG O2 Saturation 99.4 H ABG Base Excess -9.5 L Bob Test Na ABG Potassium 3.6 A-a O2 Difference 421.0 Respiratory Index 1.6 Sodium 137.0 139 Chloride 112.0 H 110 H Glucose 150 H Lactate 1.2 Vent Mode Prvc Mechanical Rate 16 FiO2 100.0 Tidal Volume 420 PEEP 9 Potassium 3.7 Carbon Dioxide 15 L Anion Gap 17 BUN 6 L Creatinine 0.7 L Est GFR ( Amer) > 60 Est GFR (Non-Af Amer) > 60 Random Glucose 149 H Lactic Acid 1.2 Calcium 8.1 L Phosphorus 3.7 Magnesium 1.3 L Total Bilirubin 0.4 AST 23 ALT 37 Alkaline Phosphatase 69 Troponin I Total Protein 5.4 L Albumin 2.5 L Globulin 2.8 Albumin/Globulin Ratio 0.9 L Arterial Blood Potassium 3.6 Vancomycin Trough 06/15/18 06/15/18 06:14 09:07 WBC 13.0 H RBC 2.46 L Hgb 7.9 L Hct 22.7 L MCV 92.3 MCH 31.9 H MCHC 34.6 RDW 17.7 H Plt Count 193 MPV 7.5 Neut % (Auto) 94.3 H Lymph % (Auto) 2.1 L Bonner % (Auto) 3.5 Eos % (Auto) 0.0 Baso % (Auto) 0.1 Neut # (Auto) 12.3 H Lymph # (Auto) 0.3 L Bonner # (Auto) 0.5 Eos # (Auto) 0.0 Baso # (Auto) 0.0 Neutrophils % (Manual) 96 H Lymphocytes % (Manual) 2 L Monocytes % (Manual) 2 Platelet Estimate Normal Polychromasia Slight Hypochromasia (manual) Slight Poikilocytosis (manual Slight Anisocytosis (manual) Slight Microcytosis (manual) Slight Macrocytosis (manual) Slight Target Cells Slight Irvine Cells Moderate Puncture Site pCO2 pO2 HCO3 ABG pH ABG Total CO2 ABG O2 Saturation ABG Base Excess Bob Test ABG Potassium A-a O2 Difference Respiratory Index Sodium Chloride Glucose Lactate Vent Mode Mechanical Rate FiO2 Tidal Volume PEEP Potassium Carbon Dioxide Anion Gap BUN Creatinine Est GFR ( Amer) Est GFR (Non-Af Amer) Random Glucose Lactic Acid Calcium Phosphorus Magnesium Total Bilirubin AST ALT Alkaline Phosphatase Troponin I Total Protein Albumin Globulin Albumin/Globulin Ratio Arterial Blood Potassium Vancomycin Trough 8.7 Fingerstick Blood Sugar Results: 158 Review of Systems - Review of Systems All systems: reviewed and no additional remarkable complaints except (as per HPI ) Critical Care Progress Note - Ventilator Checklist Head of Bed 30 Degrees: Yes Daily Sedation Vacation: Yes Daily Assessment of Readiness to Wean: Yes Daily Spontaneous Breathing Trial: Yes PUD Prophalyxis: Yes DVT Prophylaxis: Yes Oral Care with Chlorhexidine Gluconate {CHG}: Yes - Vent Settings MODE:: PRVC TIDAL VOLUME:: 420 RESP RATE:: 16 FIO2:: 100 PEEP:: 9 - Extremities/Vascular Does the Patient have a Central Venous Catheter?: Yes Does the Patient need a Griffith Catheter?: Yes - Restraints Justification for Restraints: High risk for self extubation, High risk for removing IV access, High risk for harming self - Prophylaxis GI Prophylaxis GI: PPI - Prophylaxis DVT Prophylaxis DVT: SCDs - Nutrition Nutrition: Nutrition Category Date Time Status NPO Diet [DIET] Diets 06/11/18 Breakfast Active Assessment/Plan - Assessment and Plan (Free Text) Assessment: This is a 52 year old male with PMHx of alcohol use disorder, seizure disorder, PUD, partial gastrectomy, COPD, hiatal hernia who came to [facility] ED on 06/10 for cardiac arrest. Pt suffered a seizure and was found in PEA by EMS and intubated in the field. In [facility] ED pt in PEA again, coded x2 with CPR. Started on levophed with rosc. Hgb was noted to be 7.7/7.4, and hyponatremia at 109 (nephro consulted). Pt was transfused 2 units of pRBCs. On 06/11, pt had EGD which showed multiple gastric ulcers that were clipped. On 06/12, pt was extubated and placed on BPAP. 06/14, pt was noted to be severely tachypneic on BPAP, and decision was made to intubate the pt due to impending respiratory failure. Pt was hypotensive and hypoxic after intubation. Pt remains intubated, ventilated, sedated, and on a pressor for hypotension. Plan: Neuro: - monitor for mental status changes - pt is AAOx3 at baseline - sedation with propofol gtt, lorazepam prn, midazolam prn - daily sedation weaning - f/u neurology recs Cardio: - maintain MAP>65 mmHg - hypotension yesterday as likely due to propofol effect - wean off of phenylephrine as BP is improving - continue NS IVF - echocardiogram (06/11) shows EF of 45-50%, Left ventricular diastolic function is abnormal. Transmitral doppler flow pattern is grade I-abnormal relaxation pattern. trace to mild tricuspid regurgitation. - troponin is normal - f/u cardiology recs Pulm: - PRVC (420, 9, 16, 100%) - pt's respiratory decompensation yesterday was likely due to mucus plug/heavy secretions, as pt is much improved after aggressive suctioning - CXR (06/15) shows right perihilar and left basilar opacities. Possible pneumonia. Resolved pleural effusion - Chest CTA (06/14) showed NO evidence of PE. Extensive right lower lobe consolidation/atelectasis with lesser atelectasis in the right middle lobe and lingula. Multifocal ground-glass opacity. Possible infectious etiology. Fluid/ secretion in right lower lobe bronchus and possible right upper lobe bronchus. Consider aspiration as etiology. Mild mediastinal and right hilar lymphadenopathy. - abg shows adequate po2 - possible bronchoscopy in future to suction mucus - likely aspiration pneumonia, continue empiric antibiotics - maintain spo2>92% - solumedrol 40 mg q8h - duonebs q4h GI: - s/p clipping of gastric ulcers (06/11) - NGT placed; GI recommends tube feeding - jevity 1.5, discontinue TPN - protonix for PUD ppx - f/u GI recs Renal: - BUN/Cr is wnl - maintain euvolemia - replete electrolytes as needed - f/u renal recs ID: - extensive consolidation with fluid/secretion in bronchus on chest ct; likely aspiration pneumonia - leukocytosis is uptrending, no bands - continue vancomycin, zosyn - urine culture shows no growth - f/u blood culture x 2 (06/14) - lactate is wnl - procalcitonin is wnl at 0.26 Heme: - H/H stable - AC is contraindicated due to recent gi bleeding from gastric ulcers; dvt ppx from scds Endo: -maintain euglycemia PPX: protonix for pud; scds for dvt Dispo: Continue to manage pt in the ICU Case was reviewed and discussed with attending physician, Dr. Morfin <Sandeep Morfin S - Last Filed: 06/15/18 18:58> CCU Subjective - Physician Review Critical Care Time Spent (in minutes): 40 CCU Objective - Vital Signs / Intake & Output Vital Signs (Last 4 hours): Vital Signs Pulse Resp BP Pulse Ox 06/15/18 17:00 109 H 19 100 06/15/18 16:20 101 H 21 125/83 06/15/18 16:00 104 H 22 100 06/15/18 15:20 110 H 20 139/76 06/15/18 15:00 113 H 18 100 Intake and Output (Last 8hrs): Intake & Output 06/15/18 06/15/18 06/15/18 06:59 14:59 22:59 Intake Total 1555.0 1116.0 444 Output Total 550 480 285 Balance 1005.0 636.0 159 Weight 109 lb Intake: IV 453 153 Intake, IV Amount 1102.0 963.0 444 LEFT IJ DISTAL PORT 152 88 44 LEFT IJ MEDIAL PORT 850 800 400 LEFT IJ PROXIMAL PORT 100.0 75.0 Output: Urine 550 480 285 Urethral (Griffith) 550 480 285 Other: # Bowel Movements 1 1 1 - Medications Active Medications: Active Medications Generic Name Dose Route Start Last Admin Trade Name Freq PRN Reason Stop Dose Admin Albuterol/Ipratropium 3 ml 06/15/18 00:00 06/15/18 16:49 Duoneb 3 Mg/0.5 Mg (3 Ml) Ud INH 3 ml RQ4 MAYANK Administration Guaifenesin 600 mg 06/14/18 10:00 06/15/18 10:06 Mucinex La PO Not Given BID MAYANK Levetiracetam 500 mg/ Dextrose 105 mls @ 420 mls/hr 06/11/18 07:30 06/15/18 18:53 IVPB 420 mls/hr Q12H MAYANK Administration Sodium Chloride 1,000 mls @ 100 mls/hr 06/14/18 14:33 06/15/18 16:32 Sodium Chloride 0.9% IV 100 mls/hr .Q10H MAYANK Administration Dexmedetomidine HCl 400 mcg/ 100 mls @ 2.63 mls/hr 06/14/18 17:15 06/15/18 01 :45 Sodium Chloride IV 0.2 mcg/kg/hr TITR PRN 2.63 mls/hr Restlessness Administration Protocol 0.2 MCG/KG/HR Propofol 1,000 mg in 100 mls @ 1.442 mls/hr 06/14/18 19:02 06/15/18 11:46 Diprivan IV 50 mcg/kg/min .Q24H PRN 14.424 mls/hr TITRATE PER MD ORDER Administration Protocol 5 MCG/KG/MIN Norepinephrine Bitartrate 4 mg 254 mls @ 15.24 mls/hr 06/14/18 19:54 / Sodium Chloride IV .[id number] PRN TITRATE PER MD ORDER Protocol 4 MCG/MIN Phenylephrine HCl 30 mg/ 253 mls @ 10.12 mls/hr 06/14/18 20:11 06/15/18 13:00 Sodium Chloride IV 0 mcg/min .Q24H PRN 0 mls/hr TITRATE PER MD ORDER Titration Protocol 20 MCG/MIN Piperacillin Sod/Tazobactam Sod 3.375 gm in 50 mls @ 100 mls/hr 06/14/18 23: 00 06/15/18 17:37 Zosyn 3.375 Gm Iv Premix IVPB 100 mls/hr Q6H MAYANK Administration Protocol Vancomycin/Sodium Chloride 1 gm in 200 mls @ 133 mls/hr 06/14/18 21:00 09:57 Vancomycin 1 Gm/Ns 200 Ml IVPB 06/19/18 21:01 133 mls/hr Q12H MAYANK Administration Protocol Multivitamins/Vitamin C 10 ml/ 1,012 mls @ 70 mls/hr 06/15/18 18:00 Chromium/Copper/Manganese/ IV 06/16/18 08:27 Zinc 1 ml/ Heparin Sodium ( .[id number] ONE Porcine) 1,000 units/ Amino Acids/Electrolytes/Dextrose Chromium/Copper/Manganese/Zinc 1,002 mls @ 70 mls/hr 06/16/18 08:30 1 ml/ Heparin Sodium (Porcine IV 06/16/18 22:48 ) 1,000 units/ Amino Acids/ .[id number] ONE Electrolytes/Dextrose Lorazepam 1 mg 06/13/18 17:15 06/15/18 18:51 Ativan IVP 1 mg Q4H PRN Administration Anxiety Methylprednisolone 40 mg 06/15/18 05:00 06/15/18 13:44 Solu-Medrol IV 40 mg Q8H MAYANK Administration Midazolam HCl 2 mg 06/14/18 19:18 Versed Inj IVP Q4 PRN Agitation Pantoprazole Sodium 40 mg 06/14/18 10:00 06/15/18 09:22 Protonix Inj IVP 40 mg Q12 MAYANK Administration Sucralfate 1 gm 06/11/18 18:00 06/15/18 17:37 Carafate Oral Susp PO 1 gm QID MAYANK Administration - Patient Studies Lab Studies: Microbiology Studies 06/11/18 17:15 Blood Culture - Preliminary Blood-Venous NO GROWTH AFTER 4 DAYS 06/12/18 22:42 Blood Culture - Preliminary Blood NO GROWTH AFTER 48 HOURS 06/12/18 22:42 Blood Culture - Preliminary Blood NO GROWTH AFTER 48 HOURS Lab Studies 06/15/18 06/15/18 06/15/18 Range/Units 09:07 06:14 06:14 WBC 13.0 H (4.8-10.8) K/uL RBC 2.46 L (4.40-5.90) Mil/uL Hgb 7.9 L (12.0-18.0) g/dL Hct 22.7 L (35.0-51.0) % MCV 92.3 (80.0-94.0) fL MCH 31.9 H (27.0-31.0) pg MCHC 34.6 (33.0-37.0) g/dL RDW 17.7 H (11.5-14.5) % Plt Count 193 (130-400) K/uL MPV 7.5 (7.2-11.7) fL Neut % (Auto) 94.3 H (50.0-75.0) % Lymph % (Auto) 2.1 L (20.0-40.0) % Bonner % (Auto) 3.5 (0.0-10.0) % Eos % (Auto) 0.0 (0.0-4.0) % Baso % (Auto) 0.1 (0.0-2.0) % Neut # (Auto) 12.3 H (1.8-7.0) K/uL Lymph # (Auto) 0.3 L (1.0-4.3) K/uL Bonner # (Auto) 0.5 (0.0-0.8) K/uL Eos # (Auto) 0.0 (0.0-0.7) K/uL Baso # (Auto) 0.0 (0.0-0.2) K/uL Neutrophils % (Manual) 96 H (50-75) % Lymphocytes % (Manual) 2 L (20-40) % Monocytes % (Manual) 2 (0-10) % Platelet Estimate Normal (NORMAL) Polychromasia Slight Hypochromasia (manual) Slight Poikilocytosis (manual Slight Anisocytosis (manual) Slight Microcytosis (manual) Slight Macrocytosis (manual) Slight Target Cells Slight [place] Cells Moderate Puncture Site pCO2 (35-45) mm/Hg pO2 (80-100) mm/Hg HCO3 (21-28) mmol/L ABG pH (7.35-7.45) ABG Total CO2 (22-28) mmol/L ABG O2 Saturation (95-98) % ABG Base Excess (-2.0-3.0) mmol/L Bob Test ABG Potassium (3.6-5.2) mmol/L A-a O2 Difference mm/Hg Respiratory Index Sodium 139 (132-148) mmol/l Chloride 110 H (98-107) mmol/L Glucose (75-110) mg/dl Lactate (0.7-2.1) mmol/L Vent Mode Mechanical Rate FiO2 % Tidal Volume PEEP Potassium 3.7 (3.6-5.2) mmol/L Carbon Dioxide 15 L (22-30) mmol/L Anion Gap 17 (10-20) BUN 6 L (9-20) mg/dL Creatinine 0.7 L (0.8-1.5) mg/dL Est GFR ( Amer) > 60 Est GFR (Non-Af Amer) > 60 Random Glucose 149 H (75-110) mg/dL Lactic Acid (0.7-2.1) mmol/L Calcium 8.1 L (8.6-10.4) mg/dl Phosphorus 3.7 (2.5-4.5) mg/dL Magnesium 1.3 L (1.6-2.3) mg/dL Total Bilirubin 0.4 (0.2-1.3) mg/dL AST 23 (17-59) U/L ALT 37 (21-72) U/L Alkaline Phosphatase 69 (38-126) U/L Troponin I (0.00-0.120) ng/mL Total Protein 5.4 L (6.3-8.3) g/dL Albumin 2.5 L (3.5-5.0) g/dL Globulin 2.8 (2.2-3.9) gm/dL Albumin/Globulin Ratio 0.9 L (1.0-2.1) Procalcitonin (0.19-0.49) NG/ML Arterial Blood Potassium (3.6-5.2) mmol/L Vancomycin Trough 8.7 (5.0-10.0) ug/mL 06/15/18 06/15/18 06/15/18 Range/Units 05:00 00:37 00:37 WBC (4.8-10.8) K/uL RBC (4.40-5.90) Mil/uL Hgb (12.0-18.0) g/dL Hct (35.0-51.0) % MCV (80.0-94.0) fL MCH (27.0-31.0) pg MCHC (33.0-37.0) g/dL RDW (11.5-14.5) % Plt Count (130-400) K/uL MPV (7.2-11.7) fL Neut % (Auto) (50.0-75.0) % Lymph % (Auto) (20.0-40.0) % Bonner % (Auto) (0.0-10.0) % Eos % (Auto) (0.0-4.0) % Baso % (Auto) (0.0-2.0) % Neut # (Auto) (1.8-7.0) K/uL Lymph # (Auto) (1.0-4.3) K/uL Bonner # (Auto) (0.0-0.8) K/uL Eos # (Auto) (0.0-0.7) K/uL Baso # (Auto) (0.0-0.2) K/uL Neutrophils % (Manual) (50-75) % Lymphocytes % (Manual) (20-40) % Monocytes % (Manual) (0-10) % Platelet Estimate (NORMAL) Polychromasia Hypochromasia (manual) Poikilocytosis (manual Anisocytosis (manual) Microcytosis (manual) Macrocytosis (manual) Target Cells Irvine Cells Puncture Site Rb pCO2 26 L (35-45) mm/Hg pO2 260 H (80-100) mm/Hg HCO3 17.6 L (21-28) mmol/L ABG pH 7.35 (7.35-7.45) ABG Total CO2 15.2 L (22-28) mmol/L ABG O2 Saturation 99.4 H (95-98) % ABG Base Excess -9.5 L (-2.0-3.0) mmol/L Bob Test Na ABG Potassium 3.6 (3.6-5.2) mmol/L A-a O2 Difference 421.0 mm/Hg Respiratory Index 1.6 Sodium 137.0 138 (132-148) mmol/l Chloride 112.0 H 111 H (98-107) mmol/L Glucose 150 H (75-110) mg/dl Lactate 1.2 (0.7-2.1) mmol/L Vent Mode Prvc Mechanical Rate 16 FiO2 100.0 % Tidal Volume 420 PEEP 9 Potassium 4.1 (3.6-5.2) mmol/L Carbon Dioxide 14 L (22-30) mmol/L Anion Gap 17 (10-20) BUN 6 L (9-20) mg/dL Creatinine 0.7 L (0.8-1.5) mg/dL Est GFR ( Amer) > 60 Est GFR (Non-Af Amer) > 60 Random Glucose 118 H (75-110) mg/dL Lactic Acid 1.2 (0.7-2.1) mmol/L Calcium 8.1 L (8.6-10.4) mg/dl Phosphorus 3.4 (2.5-4.5) mg/dL Magnesium 1.3 L (1.6-2.3) mg/dL Total Bilirubin 0.4 (0.2-1.3) mg/dL AST 27 (17-59) U/L ALT 32 (21-72) U/L Alkaline Phosphatase 74 (38-126) U/L Troponin I < 0.0120 (0.00-0.120) ng/mL Total Protein 5.3 L (6.3-8.3) g/dL Albumin 2.5 L (3.5-5.0) g/dL Globulin 2.8 (2.2-3.9) gm/dL Albumin/Globulin Ratio 0.9 L (1.0-2.1) Procalcitonin (0.19-0.49) NG/ML Arterial Blood Potassium 3.6 (3.6-5.2) mmol/L Vancomycin Trough (5.0-10.0) ug/mL 06/15/18 06/14/18 06/14/18 Range/Units 00:37 20:20 20:06 WBC 12.1 H (4.8-10.8) K/uL RBC 2.46 L (4.40-5.90) Mil/uL Hgb 7.7 L (12.0-18.0) g/dL Hct 22.8 L (35.0-51.0) % MCV 92.7 (80.0-94.0) fL MCH 31.3 H (27.0-31.0) pg MCHC 33.7 (33.0-37.0) g/dL RDW 18.0 H (11.5-14.5) % Plt Count 154 (130-400) K/uL MPV 7.4 (7.2-11.7) fL Neut % (Auto) 72.5 (50.0-75.0) % Lymph % (Auto) 11.9 L (20.0-40.0) % Bonner % (Auto) 14.9 H (0.0-10.0) % Eos % (Auto) 0.5 (0.0-4.0) % Baso % (Auto) 0.2 (0.0-2.0) % Neut # (Auto) 8.8 H (1.8-7.0) K/uL Lymph # (Auto) 1.4 (1.0-4.3) K/uL Bonner # (Auto) 1.8 H (0.0-0.8) K/uL Eos # (Auto) 0.1 (0.0-0.7) K/uL Baso # (Auto) 0.0 (0.0-0.2) K/uL Neutrophils % (Manual) (50-75) % Lymphocytes % (Manual) (20-40) % Monocytes % (Manual) (0-10) % Platelet Estimate (NORMAL) Polychromasia Hypochromasia (manual) Poikilocytosis (manual Anisocytosis (manual) Microcytosis (manual) Macrocytosis (manual) Target Cells [place] Cells Puncture Site Rb pCO2 29 L (35-45) mm/Hg pO2 47 L (80-100) mm/Hg HCO3 14.8 L (21-28) mmol/L ABG pH 7.27 L (7.35-7.45) ABG Total CO2 14.2 L (22-28) mmol/L ABG O2 Saturation 83.4 L (95-98) % ABG Base Excess -12.2 L (-2.0-3.0) mmol/L Bob Test Na ABG Potassium 3.7 (3.6-5.2) mmol/L A-a O2 Difference 630.0 mm/Hg Respiratory Index 13.4 Sodium 136.0 (132-148) mmol/l Chloride 110.0 H (98-107) mmol/L Glucose 99 (75-110) mg/dl Lactate 1.5 (0.7-2.1) mmol/L Vent Mode Prvc Mechanical Rate 16 FiO2 100.0 % Tidal Volume 450 PEEP 10 Potassium (3.6-5.2) mmol/L Carbon Dioxide (22-30) mmol/L Anion Gap (10-20) BUN (9-20) mg/dL Creatinine (0.8-1.5) mg/dL Est GFR ( Amer) Est GFR (Non-Af Amer) Random Glucose (75-110) mg/dL Lactic Acid (0.7-2.1) mmol/L Calcium (8.6-10.4) mg/dl Phosphorus (2.5-4.5) mg/dL Magnesium (1.6-2.3) mg/dL Total Bilirubin (0.2-1.3) mg/dL AST (17-59) U/L ALT (21-72) U/L Alkaline Phosphatase (38-126) U/L Troponin I (0.00-0.120) ng/mL Total Protein (6.3-8.3) g/dL Albumin (3.5-5.0) g/dL Globulin (2.2-3.9) gm/dL Albumin/Globulin Ratio (1.0-2.1) Procalcitonin 0.26 (0.19-0.49) NG/ML Arterial Blood Potassium 3.7 (3.6-5.2) mmol/L Vancomycin Trough (5.0-10.0) ug/mL Laboratory Results - last 24 hr 06/14/18 06/14/18 06/15/18 20:06 20:20 00:37 WBC 12.1 H RBC 2.46 L Hgb 7.7 L Hct 22.8 L MCV 92.7 MCH 31.3 H MCHC 33.7 RDW 18.0 H Plt Count 154 MPV 7.4 Neut % (Auto) 72.5 Lymph % (Auto) 11.9 L Bonner % (Auto) 14.9 H Eos % (Auto) 0.5 Baso % (Auto) 0.2 Neut # (Auto) 8.8 H Lymph # (Auto) 1.4 Bonner # (Auto) 1.8 H Eos # (Auto) 0.1 Baso # (Auto) 0.0 Neutrophils % (Manual) Lymphocytes % (Manual) Monocytes % (Manual) Platelet Estimate Polychromasia Hypochromasia (manual) Poikilocytosis (manual Anisocytosis (manual) Microcytosis (manual) Macrocytosis (manual) Target Cells Tra Cells Puncture Site Rb pCO2 29 L pO2 47 L HCO3 14.8 L ABG pH 7.27 L ABG Total CO2 14.2 L ABG O2 Saturation 83.4 L ABG Base Excess -12.2 L Bob Test Na ABG Potassium 3.7 A-a O2 Difference 630.0 Respiratory Index 13.4 Sodium 136.0 Chloride 110.0 H Glucose 99 Lactate 1.5 Vent Mode Prvc Mechanical Rate 16 FiO2 100.0 Tidal Volume 450 PEEP 10 Potassium Carbon Dioxide Anion Gap BUN Creatinine Est GFR ( Amer) Est GFR (Non-Af Amer) Random Glucose Lactic Acid Calcium Phosphorus Magnesium Total Bilirubin AST ALT Alkaline Phosphatase Troponin I Total Protein Albumin Globulin Albumin/Globulin Ratio Procalcitonin 0.26 Arterial Blood Potassium 3.7 Vancomycin Trough 06/15/18 06/15/18 06/15/18 00:37 00:37 05:00 WBC RBC Hgb Hct MCV MCH MCHC RDW Plt Count MPV Neut % (Auto) Lymph % (Auto) Bonner % (Auto) Eos % (Auto) Baso % (Auto) Neut # (Auto) Lymph # (Auto) Bonner # (Auto) Eos # (Auto) Baso # (Auto) Neutrophils % (Manual) Lymphocytes % (Manual) Monocytes % (Manual) Platelet Estimate Polychromasia Hypochromasia (manual) Poikilocytosis (manual Anisocytosis (manual) Microcytosis (manual) Macrocytosis (manual) Target Cells Tra Cells Puncture Site Rb pCO2 26 L pO2 260 H HCO3 17.6 L ABG pH 7.35 ABG Total CO2 15.2 L ABG O2 Saturation 99.4 H ABG Base Excess -9.5 L Bob Test Na ABG Potassium 3.6 A-a O2 Difference 421.0 Respiratory Index 1.6 Sodium 138 137.0 Chloride 111 H 112.0 H Glucose 150 H Lactate 1.2 Vent Mode Prvc Mechanical Rate 16 FiO2 100.0 Tidal Volume 420 PEEP 9 Potassium 4.1 Carbon Dioxide 14 L Anion Gap 17 BUN 6 L Creatinine 0.7 L Est GFR ( Amer) > 60 Est GFR (Non-Af Amer) > 60 Random Glucose 118 H Lactic Acid 1.2 Calcium 8.1 L Phosphorus 3.4 Magnesium 1.3 L Total Bilirubin 0.4 AST 27 ALT 32 Alkaline Phosphatase 74 Troponin I < 0.0120 Total Protein 5.3 L Albumin 2.5 L Globulin 2.8 Albumin/Globulin Ratio 0.9 L Procalcitonin Arterial Blood Potassium 3.6 Vancomycin Trough 06/15/18 06/15/18 06/15/18 06:14 06:14 09:07 WBC 13.0 H RBC 2.46 L Hgb 7.9 L Hct 22.7 L MCV 92.3 MCH 31.9 H MCHC 34.6 RDW 17.7 H Plt Count 193 MPV 7.5 Neut % (Auto) 94.3 H Lymph % (Auto) 2.1 L Bonner % (Auto) 3.5 Eos % (Auto) 0.0 Baso % (Auto) 0.1 Neut # (Auto) 12.3 H Lymph # (Auto) 0.3 L Bonner # (Auto) 0.5 Eos # (Auto) 0.0 Baso # (Auto) 0.0 Neutrophils % (Manual) 96 H Lymphocytes % (Manual) 2 L Monocytes % (Manual) 2 Platelet Estimate Normal Polychromasia Slight Hypochromasia (manual) Slight Poikilocytosis (manual Slight Anisocytosis (manual) Slight Microcytosis (manual) Slight Macrocytosis (manual) Slight Target Cells Slight Tra Cells Moderate Puncture Site pCO2 pO2 HCO3 ABG pH ABG Total CO2 ABG O2 Saturation ABG Base Excess Bob Test ABG Potassium A-a O2 Difference Respiratory Index Sodium 139 Chloride 110 H Glucose Lactate Vent Mode Mechanical Rate FiO2 Tidal Volume PEEP Potassium 3.7 Carbon Dioxide 15 L Anion Gap 17 BUN 6 L Creatinine 0.7 L Est GFR ( Amer) > 60 Est GFR (Non-Af Amer) > 60 Random Glucose 149 H Lactic Acid Calcium 8.1 L Phosphorus 3.7 Magnesium 1.3 L Total Bilirubin 0.4 AST 23 ALT 37 Alkaline Phosphatase 69 Troponin I Total Protein 5.4 L Albumin 2.5 L Globulin 2.8 Albumin/Globulin Ratio 0.9 L Procalcitonin Arterial Blood Potassium Vancomycin Trough 8.7 Attending/Attestation - Attestation I have personally seen and examined this patient.: Yes I have fully participated in the care of the patient.: Yes I have reviewed all pertinent clinical information: Yes Notes (Text): 06/15/18 18:57 Patient seen and examined. Patient remained intubated on ventilatory support CAT scan of the chest noted with atelectasis and mucus plugging Status post reexpansion of right lung Continue IV antibiotics No rib fractures noted Start NGT feeding Status post EGD No active bleeding
[2018-06-15] MEDS ORDERED: TPN IV ONE (18:00)
[2018-06-16] MEDS: Albuterol-Ipratrop 3 mg / 0.5 (3 ml) UD INH SCH ×6 (00:20→20:06)
[2018-06-16] MEDS: Propofol 10 mg/ml 1,000 MG/100 ML VIAL IV PRN ×4 (01:31→20:35)
[2018-06-16] MEDS: Piperacill/Tazo 3.375gm in Dex 3.375 GM/50 ML BAG IVPB SCH ×4 (04:35→22:12)
[2018-06-16] MEDS: MethylPREDNISolone 40 mg Vial IV SCH ×2 (04:35→14:37)
[2018-06-16 05:41] LABS: ARTERIAL BLOOD GAS HCO3 22.2 mmol/L (21-28); ARTERIAL BLOOD GAS HEMOGLOBIN 6.5 g/dL (11.7-17.4); ARTERIAL BLOOD GAS O2 SAT 99.1 % (95-98); ARTERIAL BLOOD GAS PCO2 27 mm/Hg (35-45); ARTERIAL BLOOD GAS PH 7.47 (7.35-7.45); ARTERIAL BLOOD GAS PO2 376 mm/Hg (80-100); ARTERIAL BLOOD GAS TCO2 20.5 mmol/L (22-28)
--- NOTE | 2018-06-16 06:00 | CP.PCM.PN ---
Subjective - Date & Time of Evaluation Date of Evaluation: 06/16/18 Time of Evaluation: 06:00 - Subjective Subjective: Mr. Clancy was seen and examined at the bedside in the ICU. He is on mechanical ventilator on PRVC mode. He is currently receiving propofol for sedation, pupils sluggish 3 mm, breath over the vent. withdraws from pain and opens eyes spontaneously any noxious stimuli. He has bilateral hand mitten for patient safety EEG report showed encephalopathy but no epileptical activity noted. There was no untoward events overnight. Objective - Vital Signs/Intake and Output Vital Signs (last 24 hours): Temp Pulse Resp BP Pulse Ox 99.2 F 107 H 22 153/80 H 71 L 06/16/18 00:00 06/16/18 04:20 06/16/18 04:20 06/16/18 04:20 06/16/18 04:20 Intake and Output: 06/15/18 06/16/18 18:59 06:59 Intake Total 1660.0 1286 Output Total 765 550 Balance 895.0 736 - Medications Medications: Current Medications Albuterol/Ipratropium (Duoneb 3 Mg/0.5 Mg (3 Ml) Ud) 3 ml INH RQ4 [facility] Last Admin: 06/16/18 03:14 Dose: 3 ml Guaifenesin (Mucinex La) 600 mg PO BID [facility] Last Admin: 06/15/18 18:59 Dose: 600 mg Levetiracetam 500 mg/ Dextrose 105 mls @ 420 mls/hr IVPB Q12H [facility] Last Admin: 06/15/18 18:53 Dose: 420 mls/hr Sodium Chloride (Sodium Chloride 0.9%) 1,000 mls @ 100 mls/hr IV .Q10H [facility] Last Admin: 06/15/18 21:35 Dose: 100 mls/hr Dexmedetomidine HCl 400 mcg/ (Sodium Chloride) 100 mls @ 2.63 mls/hr IV TITR PRN; Protocol; 0.2 MCG/KG/HR PRN Reason: Restlessness Last Admin: 06/15/18 01:45 Dose: 0.2 mcg/kg/hr, 2.63 mls/hr Propofol (Diprivan) 1,000 mg in 100 mls @ 1.442 mls/hr IV .Q24H PRN; Protocol; 5 MCG/KG/MIN PRN Reason: TITRATE PER MD ORDER Last Admin: 06/16/18 02:47 Dose: 50 mcg/kg/min, 14.424 mls/hr Norepinephrine Bitartrate 4 mg (/ Sodium Chloride) 254 mls @ 15.24 mls/hr IV .[id number] PRN; Protocol; 4 MCG/MIN PRN Reason: TITRATE PER MD ORDER Phenylephrine HCl 30 mg/ (Sodium Chloride) 253 mls @ 10.12 mls/hr IV .Q24H PRN ; Protocol; 20 MCG/MIN PRN Reason: TITRATE PER MD ORDER Last Titration: 06/15/18 13:00 Dose: 0 mcg/min, 0 mls/hr Piperacillin Sod/Tazobactam Sod (Zosyn 3.375 Gm Iv Premix) 3.375 gm in 50 mls @ 100 mls/hr IVPB Q6H [facility] PRN Reason: Protocol Last Admin: 06/16/18 04:35 Dose: 100 mls/hr Vancomycin/Sodium Chloride (Vancomycin 1 Gm/Ns 200 Ml) 1 gm in 200 mls @ 133 mls/hr IVPB Q12H [facility] PRN Reason: Protocol Stop: 06/19/18 21:01 Last Admin: 06/15/18 21:13 Dose: 133 mls/hr Multivitamins/Vitamin C 10 ml/Chromium/Copper/Manganese/Zinc 1 ml/ Heparin Sodium ( Porcine) 1,000 units/ Amino Acids/Electrolytes/Dextrose 1,012 mls @ 70 mls/hr IV .[id number] ONE Stop: 06/16/18 08:27 Chromium/Copper/Manganese/Zinc 1 ml/ Heparin Sodium (Porcine ) 1,000 units/ Amino Acids/Electrolytes/Dextrose 1,002 mls @ 70 mls/hr IV .[id number] ONE Stop: 06/16/18 22:48 Lorazepam (Ativan) 1 mg IVP Q4H PRN PRN Reason: Anxiety Last Admin: 06/15/18 18:51 Dose: 1 mg Methylprednisolone (Solu-Medrol) 40 mg IV Q8H [facility] Last Admin: 06/16/18 04:35 Dose: 40 mg Midazolam HCl (Versed Inj) 2 mg IVP Q4 PRN PRN Reason: Agitation Pantoprazole Sodium (Protonix Inj) 40 mg IVP Q12 [facility] Last Admin: 06/15/18 21:13 Dose: 40 mg Sucralfate (Carafate Oral Susp) 1 gm PO QID [facility] Last Admin: 06/15/18 21:13 Dose: 1 gm - Labs Labs: 06/15/18 06:14 06/15/18 06:14 PT 16.0 SECONDS (9.7-12.2) H 06/13/18 06:20 INR 1.5 06/13/18 06:20 APTT 40 SECONDS (21-34) H 06/10/18 23:37 - Constitutional Appears: No Acute Distress - Head Exam Head Exam: NORMAL INSPECTION - Eye Exam Pupil Exam: PERRL - Neurological Exam Neurological Exam: Awake Neuro motor strength exam: Left Upper Extremity: 3, Right Upper Extremity: 3, Left Lower Extremity: 3, Right Lower Extremity: 3 Additional comments: opens eyes spontaneously and withdraws from any noxious stimuli Assessment and Plan (1) Encephalopathy acute Assessment & Plan: Continue all current medical regimen. Recommend ICU team for vent. management, treat any electrolyte and HGB abnormalities, keep head of bed elevated at least 30 degrees. There is no new recommendations from neurology, neurology is signing off from this case, please re-consult as needed. Status: Acute
[2018-06-16 06:09] LABS: BASO % 0.5 % (0.0-2.0); HEMOGLOBIN 6.6 g/dL (12.0-18.0); LYMPH # 0.3 K/uL (1.0-4.3); LYMPH % 5.6 % (20.0-40.0); MEAN CELL VOLUME 92.5 fL (80.0-94.0); MEAN CORPUSCULAR HGB CONC 33.6 g/dL (33.0-37.0); MEAN PLATELET VOLUME 7.5 fL (7.2-11.7); MONO # 0.4 K/uL (0.0-0.8); MONO % 8.2 % (0.0-10.0); NEUT # 4.4 K/uL (1.8-7.0); NEUT % 85.7 % (50.0-75.0); NRBC % 0.3 % (0.0-2.0); PLATELET COUNT 158 K/uL (130-400); RBC 2.11 Mil/uL (4.40-5.90); RED CELL DISTRIBUTION WIDTH 18.3 % (11.5-14.5); WHITE BLOOD COUNT 5.2 K/uL (4.8-10.8)
--- NOTE | 2018-06-16 06:31 | CP.PCM.PN ---
<Lars Jenkins - Last Filed: 06/16/18 08:04> Subjective - Date & Time of Evaluation Date of Evaluation: 06/16/18 Time of Evaluation: 06:50 - Subjective Subjective: PGY-4 GI Fellow Prog Note No events overnight, including no black BMs for first time in days. Off pressors since yesterday afternoon. Remained on ventilator. Unable to obtain ROS due to clinical condition Objective - Vital Signs/Intake and Output Vital Signs (last 24 hours): Temp Pulse Resp BP Pulse Ox 99.2 F 107 H 22 153/80 H 71 L 06/16/18 00:00 06/16/18 04:20 06/16/18 04:20 06/16/18 04:20 06/16/18 04:20 Intake and Output: 06/15/18 06/16/18 18:59 06:59 Intake Total 1660.0 1286 Output Total 765 550 Balance 895.0 736 - Medications Medications: Current Medications Albuterol/Ipratropium (Duoneb 3 Mg/0.5 Mg (3 Ml) Ud) 3 ml INH RQ4 [facility] Last Admin: 06/16/18 03:14 Dose: 3 ml Guaifenesin (Mucinex La) 600 mg PO BID [facility] Last Admin: 06/15/18 18:59 Dose: 600 mg Levetiracetam 500 mg/ Dextrose 105 mls @ 420 mls/hr IVPB Q12H [facility] Last Admin: 06/15/18 18:53 Dose: 420 mls/hr Sodium Chloride (Sodium Chloride 0.9%) 1,000 mls @ 100 mls/hr IV .Q10H [facility] Last Admin: 06/15/18 21:35 Dose: 100 mls/hr Dexmedetomidine HCl 400 mcg/ (Sodium Chloride) 100 mls @ 2.63 mls/hr IV TITR PRN; Protocol; 0.2 MCG/KG/HR PRN Reason: Restlessness Last Admin: 06/15/18 01:45 Dose: 0.2 mcg/kg/hr, 2.63 mls/hr Propofol (Diprivan) 1,000 mg in 100 mls @ 1.442 mls/hr IV .Q24H PRN; Protocol; 5 MCG/KG/MIN PRN Reason: TITRATE PER MD ORDER Last Admin: 06/16/18 02:47 Dose: 50 mcg/kg/min, 14.424 mls/hr Norepinephrine Bitartrate 4 mg (/ Sodium Chloride) 254 mls @ 15.24 mls/hr IV .[id number] PRN; Protocol; 4 MCG/MIN PRN Reason: TITRATE PER MD ORDER Phenylephrine HCl 30 mg/ (Sodium Chloride) 253 mls @ 10.12 mls/hr IV .Q24H PRN ; Protocol; 20 MCG/MIN PRN Reason: TITRATE PER MD ORDER Last Titration: 06/15/18 13:00 Dose: 0 mcg/min, 0 mls/hr Piperacillin Sod/Tazobactam Sod (Zosyn 3.375 Gm Iv Premix) 3.375 gm in 50 mls @ 100 mls/hr IVPB Q6H [facility] PRN Reason: Protocol Last Admin: 06/16/18 04:35 Dose: 100 mls/hr Vancomycin/Sodium Chloride (Vancomycin 1 Gm/Ns 200 Ml) 1 gm in 200 mls @ 133 mls/hr IVPB Q12H [facility] PRN Reason: Protocol Stop: 06/19/18 21:01 Last Admin: 06/15/18 21:13 Dose: 133 mls/hr Multivitamins/Vitamin C 10 ml/Chromium/Copper/Manganese/Zinc 1 ml/ Heparin Sodium ( Porcine) 1,000 units/ Amino Acids/Electrolytes/Dextrose 1,012 mls @ 70 mls/hr IV .[id number] ONE Stop: 06/16/18 08:27 Chromium/Copper/Manganese/Zinc 1 ml/ Heparin Sodium (Porcine ) 1,000 units/ Amino Acids/Electrolytes/Dextrose 1,002 mls @ 70 mls/hr IV .[id number] ONE Stop: 06/16/18 22:48 Lorazepam (Ativan) 1 mg IVP Q4H PRN PRN Reason: Anxiety Last Admin: 06/15/18 18:51 Dose: 1 mg Methylprednisolone (Solu-Medrol) 40 mg IV Q8H [facility] Last Admin: 06/16/18 04:35 Dose: 40 mg Midazolam HCl (Versed Inj) 2 mg IVP Q4 PRN PRN Reason: Agitation Pantoprazole Sodium (Protonix Inj) 40 mg IVP Q12 [facility] Last Admin: 06/15/18 21:13 Dose: 40 mg Sucralfate (Carafate Oral Susp) 1 gm PO QID [facility] Last Admin: 06/15/18 21:13 Dose: 1 gm - Labs Labs: 06/16/18 06:00 06/15/18 06:14 PT 16.0 SECONDS (9.7-12.2) H 06/13/18 06:20 INR 1.5 06/13/18 06:20 APTT 40 SECONDS (21-34) H 06/10/18 23:37 - Constitutional Appears: Chronically Ill, Other (Intubated, sedated on vent) - Head Exam Head Exam: ATRAUMATIC, NORMAL INSPECTION - ENT Exam ENT Exam: Mucous Membranes Dry, Normal External Ear Exam. absent: Mucous Membranes Moist - Cardiovascular Exam Cardiovascular Exam: REGULAR RHYTHM, RRR - GI/Abdominal Exam GI & Abdominal Exam: Soft, Normal Bowel Sounds. absent: Distended, Firm, Guarding, Tenderness - Skin Skin Exam: Dry Additional comments: L IJ in place Assessment and Plan - Assessment and Plan (Free Text) Assessment: 52yo WM with a h/o of alcohol abuse, seizure disorder with medication noncompliance, PUD with GI bleed and Bilroth II 5yrs ago at [facility] [place], COPD. Pt presenting to the ER s/p PEA cardiopulmonary arrest. GI was consulted for anemia and GI bleeding. # Anemia, Upper GI Bleed, h/o Bilroth II: s/p EGD with PUD and ulcers with stigmata of recent hemorrhage. FC IIa (s/p APC and clips) and FC IIb (not intervened due to adverse location endoscopically. # Cardiopulmonary Arrest: Intubated on admission, since extubated and on BiPAP # Metabolic Acidosis, Hypokalemia, Hyponatremia: Pt with significant electrolyte abnormalities being corrected by Nephrology and Hospitalist # Seizure # Alcohol abuse Plan: -Cont supportive care -Cont NG with TFs -Active GI bleeding resolved for now, off pressors, Hgb down some this AM ( reassuringly, no dark BMs, not tachycardic and off pressors), s/p 2U PRBCs on -Cont to monitor H&H, transfuse Hgb <7 -Carafate 1g qid -IV PPI 40 mg IV BID -If pt develops further bleeding will need IR and Surgery on board, difficult to treat endoscopically -Will continue to follow pt closely Pt seen and examined with Dr. Ho <Kenrick Ho - Last Filed: 06/16/18 14:15> Objective - Vital Signs/Intake and Output Vital Signs (last 24 hours): Temp Pulse Resp BP Pulse Ox 99.1 F 86 22 145/80 100 06/16/18 12:35 06/16/18 12:35 06/16/18 12:35 06/16/18 12:35 06/16/18 12:18 Intake and Output: 06/16/18 06/16/18 06:59 18:59 Intake Total 1715.4 642.2 Output Total 830 330 Balance 885.4 312.2 - Medications Medications: Current Medications Albuterol/Ipratropium (Duoneb 3 Mg/0.5 Mg (3 Ml) Ud) 3 ml INH RQ4 [facility] Last Admin: 06/16/18 13:32 Dose: 3 ml Guaifenesin (Mucinex La) 600 mg PO BID [facility] Last Admin: 06/16/18 09:47 Dose: 600 mg Levetiracetam 500 mg/ Dextrose 105 mls @ 420 mls/hr IVPB Q12H [facility] Last Admin: 06/16/18 07:50 Dose: 420 mls/hr Sodium Chloride (Sodium Chloride 0.9%) 1,000 mls @ 100 mls/hr IV .Q10H [facility] Last Admin: 06/16/18 06:44 Dose: Not Given Propofol (Diprivan) 1,000 mg in 100 mls @ 1.442 mls/hr IV .Q24H PRN; Protocol; 5 MCG/KG/MIN PRN Reason: TITRATE PER MD ORDER Last Admin: 06/16/18 09:14 Dose: 50 mcg/kg/min, 14.424 mls/hr Norepinephrine Bitartrate 4 mg (/ Sodium Chloride) 254 mls @ 15.24 mls/hr IV .[id number] PRN; Protocol; 4 MCG/MIN PRN Reason: TITRATE PER MD ORDER Phenylephrine HCl 30 mg/ (Sodium Chloride) 253 mls @ 10.12 mls/hr IV .Q24H PRN ; Protocol; 20 MCG/MIN PRN Reason: TITRATE PER MD ORDER Last Titration: 06/15/18 13:00 Dose: 0 mcg/min, 0 mls/hr Piperacillin Sod/Tazobactam Sod (Zosyn 3.375 Gm Iv Premix) 3.375 gm in 50 mls @ 100 mls/hr IVPB Q6H [facility] PRN Reason: Protocol Last Admin: 06/16/18 11:56 Dose: 100 mls/hr Vancomycin/Sodium Chloride (Vancomycin 1 Gm/Ns 200 Ml) 1 gm in 200 mls @ 133 mls/hr IVPB Q12H [facility] PRN Reason: Protocol Stop: 06/19/18 21:01 Last Admin: 06/16/18 09:49 Dose: 133 mls/hr Chromium/Copper/Manganese/Zinc 1 ml/ Heparin Sodium (Porcine ) 1,000 units/ Amino Acids/Electrolytes/Dextrose 1,002 mls @ 70 mls/hr IV .[id number] ONE Stop: 06/16/18 22:48 Folic Acid 1 mg/ Sodium (Chloride) 50.2 mls @ 100.4 mls/hr IV DAILY MAYANK Lorazepam (Ativan) 1 mg IVP Q4H PRN PRN Reason: Anxiety Last Admin: 06/15/18 18:51 Dose: 1 mg Methylprednisolone (Solu-Medrol) 40 mg IV Q8H [facility] Last Admin: 06/16/18 04:35 Dose: 40 mg Midazolam HCl (Versed Inj) 2 mg IVP Q4 PRN PRN Reason: Agitation Pantoprazole Sodium (Protonix Inj) 40 mg IVP Q12 [facility] Last Admin: 06/16/18 09:24 Dose: 40 mg Sucralfate (Carafate Oral Susp) 1 gm PO QID [facility] Last Admin: 06/16/18 09:24 Dose: 1 gm - Labs Labs: 06/16/18 06:00 06/16/18 06:00 PT 16.0 SECONDS (9.7-12.2) H 06/13/18 06:20 INR 1.5 06/13/18 06:20 APTT 40 SECONDS (21-34) H 06/10/18 23:37 Attending/Attestation - Attestation I have personally seen and examined this patient.: Yes I have fully participated in the care of the patient.: Yes I have reviewed all pertinent clinical information, including history, physical exam and plan: Yes Notes (Text): 06/16/18 14:12 I have seen and examined patient with GI fellow. No acute events overnight, no bowel movements. As per nursing staff, no reported abdominal pain, nausea, vomiting, fever/chills. He is tolerating NGT feeding without difficulty. ETOH abuse Seizure disorder COPD Anemia, s/p EGD showing anastomotic ulcers Cardiac arrest - Tube feeding as tolerated - H/H trending down, however no overt bleeding noted. Transfuse PRBC and continue to monitor. - Continue with PPI therapy - Ventilator management as per critical care team - Will continue to monitor patient clinical course
[2018-06-16] MEDS: Sodium Chloride 0.9% 1,000 ML IV SCH ×2 (06:44→20:00)
[2018-06-16 06:48] LABS: ALB/GLOB RATIO 0.9 (1.0-2.1); ALBUMIN 2.6 g/dL (3.5-5.0); ALT/SGPT 31 U/L (21-72); AST/SGOT 15 U/L (17-59); BLOOD UREA NITROGEN 4 mg/dL (9-20); CALCIUM 8.1 mg/dl (8.6-10.4); GFR NON-AFRICAN AMERICAN > 60
--- NOTE | 2018-06-16 06:57 | CP.CCUPN ---
<Melvin Martínez - Last Filed: 06/16/18 17:00> CCU Subjective - Physician Review Subjective (Free Text): Melvin Martínez DO PGY-1, ICU progress note for Dr. Pitts Patient was seen and examined at beside. Over the last 24 hours, patient had regular respiratory suctioning (clear-yellow, thin sputum). He has been off phenylephrine drip since yesterday afternoon (06/15). Had liquid brown bowel movement last night (non-bloody, non-melanotic). Urine output over the past 12 hours: 830 mL. A 12-point ROS was unobtainable as patient is intubated and sedated with Propofol gtt at 60 mcg/kg/min. Sedated, but arousable to palpation. CCU Objective - Vital Signs / Intake & Output Vital Signs (Last 4 hours): Vital Signs Temp Pulse Resp BP Pulse Ox 06/16/18 06:20 87 18 149/72 100 06/16/18 06:00 101 H 24 99 06/16/18 05:20 102 H 22 140/80 100 06/16/18 05:00 100 H 23 100 06/16/18 04:20 107 H 22 153/80 H 71 L 06/16/18 04:00 98.9 F 112 H 23 100 06/16/18 03:20 105 H 19 154/83 H 100 06/16/18 03:00 106 H 18 100 Intake and Output (Last 8hrs): Intake & Output 06/15/18 06/15/18 06/16/18 14:59 22:59 06:59 Intake Total 1116.0 1060 1199.4 Output Total 480 500 615 Balance 636.0 560 584.4 Weight 51.256 kg Intake: IV 153 100 100 Intake, IV Amount 963.0 900 914.4 LEFT IJ DISTAL PORT 88 100 114.4 LEFT IJ MEDIAL PORT 800 800 800 LEFT IJ PROXIMAL PORT 75.0 Tube Feeding 60 185 Output: Urine 480 500 615 Urethral (Griffith) 480 500 615 Stool 0 Other: # Bowel Movements 1 1 - Physical Exam Head: Positive for: Atraumatic, Normocephalic Pupils: Positive for: Sluggish Extroacular Muscles: Positive for: EOMI Conjunctiva: Positive for: Normal Mouth: Positive for: Moist Mucous Membranes, Other ((+) ETT) Nose (Internal): Positive for: Normal Inspection, Other ((+) NGT feeds) Neck: Positive for: Normal Range of Motion Respiratory/Chest: Positive for: Accessory Muscle Use, Decreased Breath Sounds ( (+) decreased breath sounds at the right base), Rhonchi (throughout). Negative for: Good Air Exchange, Wheezes Cardiovascular: Positive for: Normal S1, S2, Tachycardic Abdomen: Positive for: Normal Bowel Sounds. Negative for: Tenderness (unable to assess tenderness due to intubation and sedation; abdomen is soft), Distention Upper Extremity: Positive for: Normal Inspection, NORMAL PULSES. Negative for: Edema Lower Extremity: Positive for: Normal Inspection. Negative for: Edema, NORMAL PULSES ((+) 3+ left DP pulse, (+) 1+ left DP pulse) Neurological: Positive for: Other (intubated and sedated). Negative for: GCS= 15 (pt intubated and sedated GCS 8t (E2, V1t, M5)) Skin: Positive for: Warm, Dry, Normal Color, Other ((+) 1 cm by 1 cm stage 3 ulcer to the base of the sacrum) Psychiatric: Positive for: Other (intubated and sedated) - Medications Active Medications: Active Medications Generic Name Dose Route Start Last Admin Trade Name Freq PRN Reason Stop Dose Admin Albuterol/Ipratropium 3 ml 06/15/18 00:00 06/16/18 03:14 Duoneb 3 Mg/0.5 Mg (3 Ml) Ud INH 3 ml RQ4 MAYANK Administration Guaifenesin 600 mg 06/14/18 10:00 06/15/18 18:59 Mucinex La PO 600 mg BID MAYANK Administration Levetiracetam 500 mg/ Dextrose 105 mls @ 420 mls/hr 06/11/18 07:30 06/15/18 18:53 IVPB 420 mls/hr Q12H MAYANK Administration Sodium Chloride 1,000 mls @ 100 mls/hr 06/14/18 14:33 06/16/18 06:44 Sodium Chloride 0.9% IV Not Given .Q10H MAYANK Dexmedetomidine HCl 400 mcg/ 100 mls @ 2.63 mls/hr 06/14/18 17:15 06/15/18 01 :45 Sodium Chloride IV 0.2 mcg/kg/hr TITR PRN 2.63 mls/hr Restlessness Administration Protocol 0.2 MCG/KG/HR Propofol 1,000 mg in 100 mls @ 1.442 mls/hr 06/14/18 19:02 06/16/18 02:47 Diprivan IV 50 mcg/kg/min .Q24H PRN 14.424 mls/hr TITRATE PER MD ORDER Administration Protocol 5 MCG/KG/MIN Norepinephrine Bitartrate 4 mg 254 mls @ 15.24 mls/hr 06/14/18 19:54 / Sodium Chloride IV .[id number] PRN TITRATE PER MD ORDER Protocol 4 MCG/MIN Phenylephrine HCl 30 mg/ 253 mls @ 10.12 mls/hr 06/14/18 20:11 06/15/18 13:00 Sodium Chloride IV 0 mcg/min .Q24H PRN 0 mls/hr TITRATE PER MD ORDER Titration Protocol 20 MCG/MIN Piperacillin Sod/Tazobactam Sod 3.375 gm in 50 mls @ 100 mls/hr 06/14/18 23: 00 06/16/18 04:35 Zosyn 3.375 Gm Iv Premix IVPB 100 mls/hr Q6H MAYANK Administration Protocol Vancomycin/Sodium Chloride 1 gm in 200 mls @ 133 mls/hr 06/14/18 21:00 21:13 Vancomycin 1 Gm/Ns 200 Ml IVPB 06/19/18 21:01 133 mls/hr Q12H MAYANK Administration Protocol Multivitamins/Vitamin C 10 ml/ 1,012 mls @ 70 mls/hr 06/15/18 18:00 Chromium/Copper/Manganese/ IV 06/16/18 08:27 Zinc 1 ml/ Heparin Sodium ( .[id number] ONE Porcine) 1,000 units/ Amino Acids/Electrolytes/Dextrose Chromium/Copper/Manganese/Zinc 1,002 mls @ 70 mls/hr 06/16/18 08:30 1 ml/ Heparin Sodium (Porcine IV 06/16/18 22:48 ) 1,000 units/ Amino Acids/ .[id number] ONE Electrolytes/Dextrose Lorazepam 1 mg 06/13/18 17:15 06/15/18 18:51 Ativan IVP 1 mg Q4H PRN Administration Anxiety Methylprednisolone 40 mg 06/15/18 05:00 06/16/18 04:35 Solu-Medrol IV 40 mg Q8H MAYANK Administration Midazolam HCl 2 mg 06/14/18 19:18 Versed Inj IVP Q4 PRN Agitation Pantoprazole Sodium 40 mg 06/14/18 10:00 06/15/18 21:13 Protonix Inj IVP 40 mg Q12 MAYANK Administration Sucralfate 1 gm 06/11/18 18:00 06/15/18 21:13 Carafate Oral Susp PO 1 gm QID MAYANK Administration - Patient Studies Lab Studies: Microbiology Studies 06/12/18 22:42 Blood Culture - Preliminary Blood NO GROWTH AFTER 3 DAYS 06/12/18 22:42 Blood Culture - Preliminary Blood NO GROWTH AFTER 3 DAYS 06/11/18 17:15 Blood Culture - Preliminary Blood-Venous NO GROWTH AFTER 4 DAYS Lab Studies 06/16/18 06/16/18 06/16/18 Range/Units 06:00 06:00 05:18 WBC 5.2 D (4.8-10.8) K/uL RBC 2.11 L (4.40-5.90) Mil/uL Hgb 6.6 L (12.0-18.0) g/dL Hct 19.5 L (35.0-51.0) % MCV 92.5 (80.0-94.0) fL MCH 31.0 (27.0-31.0) pg MCHC 33.6 (33.0-37.0) g/dL RDW 18.3 H (11.5-14.5) % Plt Count 158 (130-400) K/uL MPV 7.5 (7.2-11.7) fL Neut % (Auto) 85.7 H (50.0-75.0) % Lymph % (Auto) 5.6 L (20.0-40.0) % Blanco % (Auto) 8.2 (0.0-10.0) % Eos % (Auto) 0.0 (0.0-4.0) % Baso % (Auto) 0.5 (0.0-2.0) % Neut # (Auto) 4.4 (1.8-7.0) K/uL Lymph # (Auto) 0.3 L (1.0-4.3) K/uL Blanco # (Auto) 0.4 (0.0-0.8) K/uL Eos # (Auto) 0.0 (0.0-0.7) K/uL Baso # (Auto) 0.0 (0.0-0.2) K/uL Neutrophils % (Manual) (50-75) % Lymphocytes % (Manual) (20-40) % Monocytes % (Manual) (0-10) % Platelet Estimate (NORMAL) Polychromasia Hypochromasia (manual) Poikilocytosis (manual Anisocytosis (manual) Microcytosis (manual) Macrocytosis (manual) Target Cells Tra Cells Puncture Site Rb pCO2 27 L (35-45) mm/Hg pO2 376 H (80-100) mm/Hg HCO3 22.2 (21-28) mmol/L ABG pH 7.47 H (7.35-7.45) ABG Total CO2 20.5 L (22-28) mmol/L ABG O2 Saturation 99.1 H (95-98) % ABG Base Excess -3.6 L (-2.0-3.0) mmol/L ABG Hemoglobin 6.5 L (11.7-17.4) g/dL ABG Carboxyhemoglobin 0.8 (0.5-1.5) % POC ABG HHb (Measured) 0.9 (0.0-5.0) % ABG Methemoglobin 1.3 (0.0-3.0) % Bob Test Na A-a O2 Difference 161.0 mm/Hg Respiratory Index 0.4 Hgb O2 Saturation 97.0 (95.0-98.0) % Vent Mode Prvc Mechanical Rate 16 FiO2 80.0 % Tidal Volume 420 PEEP 9 Crit Value Called To Berhane rn Crit Value Called By Alejandra hand polisher Crit Value Read Back Y Blood Gas Notified Time 540 Sodium 142 (132-148) mmol/L Potassium 2.4 L* D (3.6-5.2) mmol/L Chloride 110 H (98-107) mmol/L Carbon Dioxide 20 L (22-30) mmol/L Anion Gap 14 (10-20) BUN 4 L (9-20) mg/dL Creatinine 0.7 L (0.8-1.5) mg/dL Est GFR ( Amer) > 60 Est GFR (Non-Af Amer) > 60 Random Glucose 199 H (75-110) mg/dL Calcium 8.1 L (8.6-10.4) mg/dl Phosphorus 2.6 (2.5-4.5) mg/dL Magnesium 1.7 (1.6-2.3) mg/dL Total Bilirubin 0.2 (0.2-1.3) mg/dL AST 15 L D (17-59) U/L ALT 31 (21-72) U/L Alkaline Phosphatase 61 (38-126) U/L Total Protein 5.3 L (6.3-8.3) g/dL Albumin 2.6 L (3.5-5.0) g/dL Globulin 2.8 (2.2-3.9) gm/dL Albumin/Globulin Ratio 0.9 L (1.0-2.1) Procalcitonin (0.19-0.49) NG/ML Vancomycin Trough (5.0-10.0) ug/mL 06/15/18 06/15/18 06/15/18 Range/Units 09:07 06:14 00:37 WBC (4.8-10.8) K/uL RBC (4.40-5.90) Mil/uL Hgb (12.0-18.0) g/dL Hct (35.0-51.0) % MCV (80.0-94.0) fL MCH (27.0-31.0) pg MCHC (33.0-37.0) g/dL RDW (11.5-14.5) % Plt Count (130-400) K/uL MPV (7.2-11.7) fL Neut % (Auto) (50.0-75.0) % Lymph % (Auto) (20.0-40.0) % Blanco % (Auto) (0.0-10.0) % Eos % (Auto) (0.0-4.0) % Baso % (Auto) (0.0-2.0) % Neut # (Auto) (1.8-7.0) K/uL Lymph # (Auto) (1.0-4.3) K/uL Blanco # (Auto) (0.0-0.8) K/uL Eos # (Auto) (0.0-0.7) K/uL Baso # (Auto) (0.0-0.2) K/uL Neutrophils % (Manual) 96 H (50-75) % Lymphocytes % (Manual) 2 L (20-40) % Monocytes % (Manual) 2 (0-10) % Platelet Estimate Normal (NORMAL) Polychromasia Slight Hypochromasia (manual) Slight Poikilocytosis (manual Slight Anisocytosis (manual) Slight Microcytosis (manual) Slight Macrocytosis (manual) Slight Target Cells Slight Tra Cells Moderate Puncture Site pCO2 (35-45) mm/Hg pO2 (80-100) mm/Hg HCO3 (21-28) mmol/L ABG pH (7.35-7.45) ABG Total CO2 (22-28) mmol/L ABG O2 Saturation (95-98) % ABG Base Excess (-2.0-3.0) mmol/L ABG Hemoglobin (11.7-17.4) g/dL ABG Carboxyhemoglobin (0.5-1.5) % POC ABG HHb (Measured) (0.0-5.0) % ABG Methemoglobin (0.0-3.0) % Bob Test A-a O2 Difference mm/Hg Respiratory Index Hgb O2 Saturation (95.0-98.0) % Vent Mode Mechanical Rate FiO2 % Tidal Volume PEEP Crit Value Called To Crit Value Called By Crit Value Read Back Blood Gas Notified Time Sodium (132-148) mmol/L Potassium (3.6-5.2) mmol/L Chloride (98-107) mmol/L Carbon Dioxide (22-30) mmol/L Anion Gap (10-20) BUN (9-20) mg/dL Creatinine (0.8-1.5) mg/dL Est GFR ( Amer) Est GFR (Non-Af Amer) Random Glucose (75-110) mg/dL Calcium (8.6-10.4) mg/dl Phosphorus (2.5-4.5) mg/dL Magnesium (1.6-2.3) mg/dL Total Bilirubin (0.2-1.3) mg/dL AST (17-59) U/L ALT (21-72) U/L Alkaline Phosphatase (38-126) U/L Total Protein (6.3-8.3) g/dL Albumin (3.5-5.0) g/dL Globulin (2.2-3.9) gm/dL Albumin/Globulin Ratio (1.0-2.1) Procalcitonin 0.26 (0.19-0.49) NG/ML Vancomycin Trough 8.7 (5.0-10.0) ug/mL Laboratory Results - last 24 hr 06/15/18 06/15/18 06/15/18 00:37 06:14 09:07 WBC RBC Hgb Hct MCV MCH MCHC RDW Plt Count MPV Neut % (Auto) Lymph % (Auto) Blanco % (Auto) Eos % (Auto) Baso % (Auto) Neut # (Auto) Lymph # (Auto) Blanco # (Auto) Eos # (Auto) Baso # (Auto) Neutrophils % (Manual) 96 H Lymphocytes % (Manual) 2 L Monocytes % (Manual) 2 Platelet Estimate Normal Polychromasia Slight Hypochromasia (manual) Slight Poikilocytosis (manual Slight Anisocytosis (manual) Slight Microcytosis (manual) Slight Macrocytosis (manual) Slight Target Cells Slight Tra Cells Moderate Puncture Site pCO2 pO2 HCO3 ABG pH ABG Total CO2 ABG O2 Saturation ABG Base Excess ABG Hemoglobin ABG Carboxyhemoglobin POC ABG HHb (Measured) ABG Methemoglobin Bob Test A-a O2 Difference Respiratory Index Hgb O2 Saturation Vent Mode Mechanical Rate FiO2 Tidal Volume PEEP Crit Value Called To Crit Value Called By Crit Value Read Back Blood Gas Notified Time Sodium Potassium Chloride Carbon Dioxide Anion Gap BUN Creatinine Est GFR ( Amer) Est GFR (Non-Af Amer) Random Glucose Calcium Phosphorus Magnesium Total Bilirubin AST ALT Alkaline Phosphatase Total Protein Albumin Globulin Albumin/Globulin Ratio Procalcitonin 0.26 Vancomycin Trough 8.7 06/16/18 06/16/18 06/16/18 05:18 06:00 06:00 WBC 5.2 D RBC 2.11 L Hgb 6.6 L Hct 19.5 L MCV 92.5 MCH 31.0 MCHC 33.6 RDW 18.3 H Plt Count 158 MPV 7.5 Neut % (Auto) 85.7 H Lymph % (Auto) 5.6 L Blanco % (Auto) 8.2 Eos % (Auto) 0.0 Baso % (Auto) 0.5 Neut # (Auto) 4.4 Lymph # (Auto) 0.3 L Blanco # (Auto) 0.4 Eos # (Auto) 0.0 Baso # (Auto) 0.0 Neutrophils % (Manual) Lymphocytes % (Manual) Monocytes % (Manual) Platelet Estimate Polychromasia Hypochromasia (manual) Poikilocytosis (manual Anisocytosis (manual) Microcytosis (manual) Macrocytosis (manual) Target Cells Tra Cells Puncture Site Rb pCO2 27 L pO2 376 H HCO3 22.2 ABG pH 7.47 H ABG Total CO2 20.5 L ABG O2 Saturation 99.1 H ABG Base Excess -3.6 L ABG Hemoglobin 6.5 L ABG Carboxyhemoglobin 0.8 POC ABG HHb (Measured) 0.9 ABG Methemoglobin 1.3 Bob Test Na A-a O2 Difference 161.0 Respiratory Index 0.4 Hgb O2 Saturation 97.0 Vent Mode Prvc Mechanical Rate 16 FiO2 80.0 Tidal Volume 420 PEEP 9 Crit Value Called To Berhane rn Crit Value Called By Alejandra hand polisher Crit Value Read Back Y Blood Gas Notified Time 540 Sodium 142 Potassium 2.4 L* D Chloride 110 H Carbon Dioxide 20 L Anion Gap 14 BUN 4 L Creatinine 0.7 L Est GFR ( Amer) > 60 Est GFR (Non-Af Amer) > 60 Random Glucose 199 H Calcium 8.1 L Phosphorus 2.6 Magnesium 1.7 Total Bilirubin 0.2 AST 15 L D ALT 31 Alkaline Phosphatase 61 Total Protein 5.3 L Albumin 2.6 L Globulin 2.8 Albumin/Globulin Ratio 0.9 L Procalcitonin Vancomycin Trough Fingerstick Blood Sugar Results: 158 Review of Systems - Review of Systems Systems not reviewed;Unavailable: Intubated All systems: reviewed and no additional remarkable complaints except (as per HPI ) Critical Care Progress Note - Ventilator Checklist Head of Bed 30 Degrees: Yes PUD Prophalyxis: Yes DVT Prophylaxis: Yes Oral Care with Chlorhexidine Gluconate {CHG}: Yes - Vent Settings TIDAL VOLUME:: 420 RESP RATE:: 16 FIO2:: 40 PEEP:: 9 - Extremities/Vascular Does the Patient have a Central Venous Catheter?: Yes Does the Patient have a Griffith Catheter?: No ([place]) - Restraints Justification for Restraints: High risk for self extubation, High risk for removing IV access, High risk for harming self - Prophylaxis GI Prophylaxis GI: PPI - Prophylaxis DVT Prophylaxis DVT: SCDs Assessment/Plan - Assessment and Plan (Free Text) Assessment: This is a 52 year old male with PMHx of alcohol use disorder, seizure disorder, PUD, partial gastrectomy, COPD, hiatal hernia who came to [facility] ED on 06/10 for cardiac arrest. Pt suffered a seizure and was found in PEA by EMS and intubated in the field. In [facility] ED pt in PEA again, coded x2 with CPR. Started on levophed with rosc. Hgb was noted to be 7.7/7.4, and hyponatremia at 109 (nephro consulted). Pt was transfused 2 units of pRBCs. On 06/11, pt had EGD which showed multiple gastric ulcers that were clipped. On 06/12, pt was extubated and placed on BPAP. 06/14, pt was noted to be severely tachypneic on BPAP, and decision was made to intubate the pt due to impending respiratory failure. Pt was hypotensive and hypoxic after intubation. Pt remains intubated, ventilated, sedated on propofol. Plan: Neuro: - monitor for mental status changes - pt AAOx3 at baseline - Sedated with propofol gtt. Ativan and Versed prn agitation - History of alcohol use disorder and seizure disorder (with apparent inconsistent medication use). - continue Folic Acid and Thiamine due to history of alcohol use - continue Keppra due to history of seizure disorder - daily sedation weaning on hold due to difficulty to sedate pt and prevent biting of the tube - EEG obtained for seizure likely due to alcohol withdrawal. Report (06/15) shows an abnormal awake and drowsy EEG which is very slow, indicating encephalopathy or medication effect. Recommend repeat EEG off sedation. - Neuro consult to Dr. Rubi; neuro is signed off case as of 06/16 Cardio: - maintain MAP>65 mmHg - Pt has been hemodynamically stable OFF phenylephrine since afternoon on 06/15 ( approx. 24 hours ago). Over last 24 hours: HR: 80s-110s, BP 130s-150s/60s-80s. - continue NS IVF - echocardiogram (06/11) shows EF of 45-50%, Left ventricular diastolic function is abnormal. Transmitral doppler flow pattern is grade I-abnormal relaxation pattern. trace to mild tricuspid regurgitation. - troponin is normal - f/u cardiology recs Pulm: - PRVC (420, 9, 16, 40%) - Will not attempt spontaneous awakening/breathing trial today as patient was hemodynamically unstable 2 days ago. Possibilty to resume trial tomorrow 06/17. - CXR (06/16): Patchy bilateral infiltrates left greater than right. - continue empiric antibiotics for likely aspiration pneumonia - Chest CTA (06/14) showed NO evidence of PE. Extensive right lower lobe consolidation/atelectasis with lesser atelectasis in the right middle lobe and lingula. Multifocal ground-glass opacity. Possible infectious etiology. Fluid/ secretion in right lower lobe bronchus and possible right upper lobe bronchus. Consider aspiration as etiology. Mild mediastinal and right hilar lymphadenopathy. - abg shows adequate po2 - maintain spo2>92% - taper methylprednisolone to 20mg IV q12h - duonebs q4h - patient's respiratory decompensation on 06/14 likely due to mucus plug/heavy secretions. patient much improved after aggressive suctioning. Continue suction and Acetylcysteine q6h GI: - s/p clipping of gastric ulcers (06/11) - NGT; continue jevity 1.5 - jevity 1.5, discontinue TPN - protonix for PUD ppx - continue Carafate 1mg po qid as per GI Renal: - BUN/Cr stable 4/0.7 - maintain euvolemia - IV NS at 100 - Hypokalemia 2.4 noted today; repleted appropriately. Follow-up bmp today ID: - extensive consolidation with fluid/secretion in bronchus on chest ct; likely aspiration pneumonia - continue to be Afebrile - WBC 5.2, significantly decreased from 13.0 yesterday. - Per chart review, patient not given any IV or PO antibiotics at this hospital prior to this admission. - urine culture 06/13 final - no growth (06/11 culture: acintobacter baumannii) - blood culture 06/12 prelim x 2 - no growth after 3 days - Patient is currently on empiric antibiotic therapy due to likely aspiration pneumonia. - Zosyn 3.375 gm IV q6h since 06/11/18. Today is day #6 on Zosyn. - Vancomycin 1 gm on 06/11/18. Resumed Vancomycin 1gm IV q12h on 06/14/2018 ( received only one dose that day). Today (06/16) is day #3 on this dosage; will receive 5th dose of vancomycin IV today (6th dose total during this admission). - vancomycin trough subtherapeutic yesterday - lactic acid and procalcitonin wnl Heme: - H/H 6.6/19.5, down from 7.9/22.7 yesterday. Transfused 2 units PRBC. No overt source of bleeding identified. GI aware. - f/u cbc after transfusions - anticoagulation contraindicated due to recent bleeding GI ulcer Endo: -maintain euglycemia Integumentary: - stage 2 ulcer on sacrum (see physical exam) - continue medihoney and optoform dressing as per primary team - wound care has been consulted PPX: protonix for pud; scds for dvt CODE STATUS: Full Code Next of Kin: no name or relationship in patient's records. However, patient lives with his mother. Phone number for Next of Kin is the same as patient's provided home phone number: [phone] (presumably also his mother's home phone number). Dispo: Continue to manage pt in the ICU Case was reviewed and discussed with attending physician, Dr. Pitts <Hardeep Pitts - Last Filed: 06/16/18 20:11> CCU Objective - Vital Signs / Intake & Output Vital Signs (Last 4 hours): Vital Signs Temp Pulse Resp BP Pulse Ox 06/16/18 18:11 97 H 20 142/77 100 06/16/18 18:00 105 H 22 100 06/16/18 17:41 101 H 18 138/71 100 06/16/18 17:11 99 H 21 143/77 100 06/16/18 17:00 97.8 F 97 H 18 143/77 100 06/16/18 16:41 80 16 130/88 100 06/16/18 16:15 80 20 147/76 Intake and Output (Last 8hrs): Intake & Output 06/16/18 06/16/18 06/16/18 06:59 14:59 22:59 Intake Total 1199.4 1838.0 1390.7 Output Total 615 570 60 Balance 584.4 1268.0 1330.7 Weight 113 lb Intake: IV 100 100 20 Intake, IV Amount 914.4 1488.0 925.7 LEFT IJ DISTAL PORT 114.4 113.0 50.7 LEFT IJ MEDIAL PORT 800 800 400 LEFT IJ PROXIMAL PORT 575 475 Tube Feeding 185 240 120 Blood Product 0 325 Red Blood Cells Cpd As1 0 Lr Unit [id number] Red Blood Cells Cpd As1 0 325 Lr Unit [id number] Other 10 0 Red Blood Cells Cpd As1 10 Lr Unit [id number] Red Blood Cells Cpd As1 0 Lr Unit [id number] Output: Urine 615 570 60 Condom 0 60 Urethral (Griffith) 615 570 Stool 0 0 0 - Medications Active Medications: Active Medications Generic Name Dose Route Start Last Admin Trade Name Freq PRN Reason Stop Dose Admin Acetylcysteine 4 ml 06/16/18 15:00 06/16/18 20:06 Acetylcysteine 20% INH 4 ml Q6H MAYANK Administration Albuterol/Ipratropium 3 ml 06/15/18 00:00 06/16/18 20:06 Duoneb 3 Mg/0.5 Mg (3 Ml) Ud INH 3 ml RQ4 MAYANK Administration Levetiracetam 500 mg/ Dextrose 105 mls @ 420 mls/hr 06/11/18 07:30 06/16/18 19:35 IVPB 420 mls/hr Q12H MAYANK Administration Sodium Chloride 1,000 mls @ 100 mls/hr 06/14/18 14:33 06/16/18 20:00 Sodium Chloride 0.9% IV 100 mls/hr .Q10H MAYANK Administration Propofol 1,000 mg in 100 mls @ 1.442 mls/hr 06/14/18 19:02 06/16/18 15:00 Diprivan IV 60 mcg/kg/min .Q24H PRN 17.309 mls/hr TITRATE PER MD ORDER Titration Protocol 5 MCG/KG/MIN Piperacillin Sod/Tazobactam Sod 3.375 gm in 50 mls @ 100 mls/hr 06/14/18 23: 00 06/16/18 17:22 Zosyn 3.375 Gm Iv Premix IVPB 100 mls/hr Q6H MAYANK Administration Protocol Vancomycin/Sodium Chloride 1 gm in 200 mls @ 133 mls/hr 06/14/18 21:00 09:49 Vancomycin 1 Gm/Ns 200 Ml IVPB 06/19/18 21:01 133 mls/hr Q12H MAYANK Administration Protocol Folic Acid 1 mg/ Sodium 50.2 mls @ 100.4 mls/hr 06/16/18 15:00 06/16/18 17:00 Chloride IV 100.4 mls/hr DAILY MAYANK Administration Lorazepam 1 mg 06/13/18 17:15 06/15/18 18:51 Ativan IVP 1 mg Q4H PRN Administration Anxiety Methylprednisolone 20 mg 06/16/18 22:00 Solu-Medrol IV Q12 MAYANK Midazolam HCl 2 mg 06/14/18 19:18 Versed Inj IVP Q4 PRN Agitation Pantoprazole Sodium 40 mg 06/14/18 10:00 06/16/18 09:24 Protonix Inj IVP 40 mg Q12 MAYANK Administration Sucralfate 1 gm 06/11/18 18:00 06/16/18 17:21 Carafate Oral Susp PO 1 gm QID MAYANK Administration - Patient Studies Lab Studies: Microbiology Studies 06/16/18 17:11 Gram Stain - Final Trachasp 06/11/18 17:15 Blood Culture - Final Blood-Venous NO GROWTH AFTER 5 DAYS Gram Stain - Final TEST NOT PERFORMED 06/12/18 22:42 Blood Culture - Preliminary Blood NO GROWTH AFTER 3 DAYS 06/12/18 22:42 Blood Culture - Preliminary Blood NO GROWTH AFTER 3 DAYS Lab Studies 06/16/18 06/16/18 06/16/18 Range/Units 18:07 18:07 08:35 WBC 7.1 (4.8-10.8) K/uL RBC 3.13 L (4.40-5.90) Mil/uL Hgb 9.4 L D (12.0-18.0) g/dL Hct 27.5 L (35.0-51.0) % MCV 87.7 D (80.0-94.0) fL MCH 30.1 (27.0-31.0) pg MCHC 34.4 (33.0-37.0) g/dL RDW 20.9 H (11.5-14.5) % Plt Count 186 (130-400) K/uL MPV 7.3 (7.2-11.7) fL Neut % (Auto) 88.6 H (50.0-75.0) % Lymph % (Auto) 4.9 L (20.0-40.0) % Blanco % (Auto) 6.2 (0.0-10.0) % Eos % (Auto) 0.0 (0.0-4.0) % Baso % (Auto) 0.3 (0.0-2.0) % Neut # (Auto) 6.3 (1.8-7.0) K/uL Lymph # (Auto) 0.3 L (1.0-4.3) K/uL Blanco # (Auto) 0.4 (0.0-0.8) K/uL Eos # (Auto) 0.0 (0.0-0.7) K/uL Baso # (Auto) 0.0 (0.0-0.2) K/uL Neutrophils % (Manual) 84 H (50-75) % Band Neutrophils % 7 H (0-2) % Lymphocytes % (Manual) 3 L (20-40) % Monocytes % (Manual) 6 (0-10) % Platelet Estimate Normal (NORMAL) Polychromasia Slight Hypochromasia (manual) Slight Poikilocytosis (manual Anisocytosis (manual) Microcytosis (manual) Slight Schistocytes Slight Puncture Site pCO2 (35-45) mm/Hg pO2 (80-100) mm/Hg HCO3 (21-28) mmol/L ABG pH (7.35-7.45) ABG Total CO2 (22-28) mmol/L ABG O2 Saturation (95-98) % ABG Base Excess (-2.0-3.0) mmol/L ABG Hemoglobin (11.7-17.4) g/dL ABG Carboxyhemoglobin (0.5-1.5) % POC ABG HHb (Measured) (0.0-5.0) % ABG Methemoglobin (0.0-3.0) % Bob Test A-a O2 Difference mm/Hg Respiratory Index Hgb O2 Saturation (95.0-98.0) % Vent Mode Mechanical Rate FiO2 % Tidal Volume PEEP Crit Value Called To Crit Value Called By Crit Value Read Back Blood Gas Notified Time Sodium 141 (132-148) mmol/L Potassium 3.5 L (3.6-5.2) mmol/L Chloride 113 H (98-107) mmol/L Carbon Dioxide 20 L (22-30) mmol/L Anion Gap 11 (10-20) BUN 6 L (9-20) mg/dL Creatinine 0.6 L (0.8-1.5) mg/dL Est GFR ( Amer) > 60 Est GFR (Non-Af Amer) > 60 Random Glucose 166 H (75-110) mg/dL Calcium 8.4 L (8.6-10.4) mg/dl Phosphorus 2.2 L (2.5-4.5) mg/dL Magnesium 1.6 (1.6-2.3) mg/dL Total Bilirubin 0.6 (0.2-1.3) mg/dL AST 24 (17-59) U/L ALT 36 (21-72) U/L Alkaline Phosphatase 59 (38-126) U/L Total Protein 5.3 L (6.3-8.3) g/dL Albumin 2.6 L (3.5-5.0) g/dL Globulin 2.7 (2.2-3.9) gm/dL Albumin/Globulin Ratio 0.9 L (1.0-2.1) Blood Type A POSITIVE Antibody Screen Negative 06/16/18 06/16/18 06/16/18 Range/Units 06:00 06:00 05:18 WBC 5.2 D (4.8-10.8) K/uL RBC 2.11 L (4.40-5.90) Mil/uL Hgb 6.6 L (12.0-18.0) g/dL Hct 19.5 L (35.0-51.0) % MCV 92.5 (80.0-94.0) fL MCH 31.0 (27.0-31.0) pg MCHC 33.6 (33.0-37.0) g/dL RDW 18.3 H (11.5-14.5) % Plt Count 158 (130-400) K/uL MPV 7.5 (7.2-11.7) fL Neut % (Auto) 85.7 H (50.0-75.0) % Lymph % (Auto) 5.6 L (20.0-40.0) % Blanco % (Auto) 8.2 (0.0-10.0) % Eos % (Auto) 0.0 (0.0-4.0) % Baso % (Auto) 0.5 (0.0-2.0) % Neut # (Auto) 4.4 (1.8-7.0) K/uL Lymph # (Auto) 0.3 L (1.0-4.3) K/uL Blanco # (Auto) 0.4 (0.0-0.8) K/uL Eos # (Auto) 0.0 (0.0-0.7) K/uL Baso # (Auto) 0.0 (0.0-0.2) K/uL Neutrophils % (Manual) 88 H (50-75) % Band Neutrophils % 1 (0-2) % Lymphocytes % (Manual) 4 L (20-40) % Monocytes % (Manual) 7 (0-10) % Platelet Estimate Normal (NORMAL) Polychromasia Hypochromasia (manual) Slight Poikilocytosis (manual Slight Anisocytosis (manual) Slight Microcytosis (manual) Schistocytes Puncture Site Rb pCO2 27 L (35-45) mm/Hg pO2 376 H (80-100) mm/Hg HCO3 22.2 (21-28) mmol/L ABG pH 7.47 H (7.35-7.45) ABG Total CO2 20.5 L (22-28) mmol/L ABG O2 Saturation 99.1 H (95-98) % ABG Base Excess -3.6 L (-2.0-3.0) mmol/L ABG Hemoglobin 6.5 L (11.7-17.4) g/dL ABG Carboxyhemoglobin 0.8 (0.5-1.5) % POC ABG HHb (Measured) 0.9 (0.0-5.0) % ABG Methemoglobin 1.3 (0.0-3.0) % Bob Test Na A-a O2 Difference 161.0 mm/Hg Respiratory Index 0.4 Hgb O2 Saturation 97.0 (95.0-98.0) % Vent Mode Prvc Mechanical Rate 16 FiO2 80.0 % Tidal Volume 420 PEEP 9 Crit Value Called To Berhane rn Crit Value Called By Alejandra hand polisher Crit Value Read Back Y Blood Gas Notified Time 540 Sodium 142 (132-148) mmol/L Potassium 2.4 L* D (3.6-5.2) mmol/L Chloride 110 H (98-107) mmol/L Carbon Dioxide 20 L (22-30) mmol/L Anion Gap 14 (10-20) BUN 4 L (9-20) mg/dL Creatinine 0.7 L (0.8-1.5) mg/dL Est GFR ( Amer) > 60 Est GFR (Non-Af Amer) > 60 Random Glucose 199 H (75-110) mg/dL Calcium 8.1 L (8.6-10.4) mg/dl Phosphorus 2.6 (2.5-4.5) mg/dL Magnesium 1.7 (1.6-2.3) mg/dL Total Bilirubin 0.2 (0.2-1.3) mg/dL AST 15 L D (17-59) U/L ALT 31 (21-72) U/L Alkaline Phosphatase 61 (38-126) U/L Total Protein 5.3 L (6.3-8.3) g/dL Albumin 2.6 L (3.5-5.0) g/dL Globulin 2.8 (2.2-3.9) gm/dL Albumin/Globulin Ratio 0.9 L (1.0-2.1) Blood Type Antibody Screen Laboratory Results - last 24 hr 06/16/18 06/16/18 06/16/18 05:18 06:00 06:00 WBC 5.2 D RBC 2.11 L Hgb 6.6 L Hct 19.5 L MCV 92.5 MCH 31.0 MCHC 33.6 RDW 18.3 H Plt Count 158 MPV 7.5 Neut % (Auto) 85.7 H Lymph % (Auto) 5.6 L Blanco % (Auto) 8.2 Eos % (Auto) 0.0 Baso % (Auto) 0.5 Neut # (Auto) 4.4 Lymph # (Auto) 0.3 L Blanco # (Auto) 0.4 Eos # (Auto) 0.0 Baso # (Auto) 0.0 Neutrophils % (Manual) 88 H Band Neutrophils % 1 Lymphocytes % (Manual) 4 L Monocytes % (Manual) 7 Platelet Estimate Normal Polychromasia Hypochromasia (manual) Slight Poikilocytosis (manual Slight Anisocytosis (manual) Slight Microcytosis (manual) Schistocytes Puncture Site Rb pCO2 27 L pO2 376 H HCO3 22.2 ABG pH 7.47 H ABG Total CO2 20.5 L ABG O2 Saturation 99.1 H ABG Base Excess -3.6 L ABG Hemoglobin 6.5 L ABG Carboxyhemoglobin 0.8 POC ABG HHb (Measured) 0.9 ABG Methemoglobin 1.3 Bob Test Na A-a O2 Difference 161.0 Respiratory Index 0.4 Hgb O2 Saturation 97.0 Vent Mode Prvc Mechanical Rate 16 FiO2 80.0 Tidal Volume 420 PEEP 9 Crit Value Called To Berhane rn Crit Value Called By Alejandra hand polisher Crit Value Read Back Y Blood Gas Notified Time 540 Sodium 142 Potassium 2.4 L* D Chloride 110 H Carbon Dioxide 20 L Anion Gap 14 BUN 4 L Creatinine 0.7 L Est GFR ( Amer) > 60 Est GFR (Non-Af Amer) > 60 Random Glucose 199 H Calcium 8.1 L Phosphorus 2.6 Magnesium 1.7 Total Bilirubin 0.2 AST 15 L D ALT 31 Alkaline Phosphatase 61 Total Protein 5.3 L Albumin 2.6 L Globulin 2.8 Albumin/Globulin Ratio 0.9 L Blood Type Antibody Screen 06/16/18 06/16/18 06/16/18 08:35 18:07 18:07 WBC 7.1 RBC 3.13 L Hgb 9.4 L D Hct 27.5 L MCV 87.7 D MCH 30.1 MCHC 34.4 RDW 20.9 H Plt Count 186 MPV 7.3 Neut % (Auto) 88.6 H Lymph % (Auto) 4.9 L Blanco % (Auto) 6.2 Eos % (Auto) 0.0 Baso % (Auto) 0.3 Neut # (Auto) 6.3 Lymph # (Auto) 0.3 L Blanco # (Auto) 0.4 Eos # (Auto) 0.0 Baso # (Auto) 0.0 Neutrophils % (Manual) 84 H Band Neutrophils % 7 H Lymphocytes % (Manual) 3 L Monocytes % (Manual) 6 Platelet Estimate Normal Polychromasia Slight Hypochromasia (manual) Slight Poikilocytosis (manual Anisocytosis (manual) Microcytosis (manual) Slight Schistocytes Slight Puncture Site pCO2 pO2 HCO3 ABG pH ABG Total CO2 ABG O2 Saturation ABG Base Excess ABG Hemoglobin ABG Carboxyhemoglobin POC ABG HHb (Measured) ABG Methemoglobin Bob Test A-a O2 Difference Respiratory Index Hgb O2 Saturation Vent Mode Mechanical Rate FiO2 Tidal Volume PEEP Crit Value Called To Crit Value Called By Crit Value Read Back Blood Gas Notified Time Sodium 141 Potassium 3.5 L Chloride 113 H Carbon Dioxide 20 L Anion Gap 11 BUN 6 L Creatinine 0.6 L Est GFR ( Amer) > 60 Est GFR (Non-Af Amer) > 60 Random Glucose 166 H Calcium 8.4 L Phosphorus 2.2 L Magnesium 1.6 Total Bilirubin 0.6 AST 24 ALT 36 Alkaline Phosphatase 59 Total Protein 5.3 L Albumin 2.6 L Globulin 2.7 Albumin/Globulin Ratio 0.9 L Blood Type A POSITIVE Antibody Screen Negative Attending/Attestation - Attestation I have personally seen and examined this patient.: Yes I have fully participated in the care of the patient.: Yes I have reviewed all pertinent clinical information: Yes Notes (Text): 06/16/18 20:11 Today: May The Patient was seen and examined at the bedside, Medical records reviewed, and management issues were discussed and formulated with the house staff. I have reviewed all the relevant clinical, laboratory, hemodynamic, radiographic data and medications Events reviewed Pain issues, skin care, head of the bed elevation, glycemic control were addressed. Agree with above resident's assessment and treatment plans of care as transcribed in Dr. Martínez's note.
[2018-06-16] MEDS ORDERED: Potassium Chloride 20 mEq/15 ml LIQ UD NG ONE ×2 (07:45→19:45)
[2018-06-16] MEDS ORDERED: TPN IV ONE (08:30)
[2018-06-16 08:47] LABS: ANISOCYTOSIS SLIGHT; BANDS 1 % (0-2); HYPOCHROMIC SLIGHT; LYMPHOCYTE 4 % (20-40); MONOCYTE 7 % (0-10); NEUTROPHIL 88 % (50-75); PLATELET ESTIMATE NORMAL (NORMAL); POIKILOCYTOSIS SLIGHT; TOTAL CELLS COUNTED 100
[2018-06-16] MEDS: Sucralfate 1 gm/10 ml Oral Susp UD PO SCH ×4 (09:24→21:44)
[2018-06-16] MEDS: guaiFENesin 600 mg ER Tab PO SCH (09:47)
[2018-06-16] MEDS: Vancomycin 1 gm/NS 200 ml 1 GM/200 ML BAG IVPB SCH ×2 (09:49→21:44)
--- NOTE | 2018-06-16 10:35 | RAD ---
Date of service: 06/16/2018 HISTORY: intubated COMPARISON: No prior. FINDINGS: Interval placement NGT, the tip of which has not been included on this film though distal aspect does lie well below junction. In situ ETT, tip of which appears to lie approximately at 2.5 cm above lila. No change left IJ central line with tip in SVC/RA junction LUNGS: Patchy infiltrate changes again seen in the left and to a lesser degree right lower lung nolan. PLEURA: No significant pleural effusion identified, no pneumothorax apparent. CARDIOVASCULAR: Normal. OSSEOUS STRUCTURES: No significant abnormalities. VISUALIZED UPPER ABDOMEN: Normal. OTHER FINDINGS: None. IMPRESSION: Support lines and tubes as above. Patchy bilateral lower lobe infiltrates left greater than right
[2018-06-16] MEDS ORDERED: Thiamine 100 mg/ml Inj IV ONE (14:00)
[2018-06-16] MEDS: Acetylcysteine 20% Inhal Soln (4ml) INH SCH ×2 (16:36→20:06)
[2018-06-16] MEDS: Folic Acid 1 MG in Sodium Chloride 0.9% 50 ML IV SCH (17:00)
--- NOTE | 2018-06-16 17:24 | CP.PCM.PN ---
Subjective - Date & Time of Evaluation Date of Evaluation: 06/16/18 Time of Evaluation: 17:00 - Subjective Subjective: Hospitalist Progress Note Patient was seen and examined at 5:00 PM 06/16/18 ICU Bed 15 Patient is receiving Jevity 1.5 via NGT Patient's HgB/Hct have dropped and he is receiving 2 units of PRBC He remains intubated and on vent He is on pressure support with Levophed and Phenylephrine He is on sedation with Diprivan Order placed for Medihoney and to cover with optifoam dressing for Stage II Sacral Ulcer See Assessment and Plans below for further details General: Patient is nonresponsive intubated on vent and Diprivan HEENT: NCA, Pupils are round and reactive to light sluggishly, NO lymphadenopathy, NO thyromegaly Cardio: heart sounds are very faint however this exam is limited (NS1 and NS2, NO M/R/G) Respiratory: Course breath sounds difusely GI: BSx4, Soft, NO HSM, NO guarding/rebound tenderness, ND Ext: Radial pulses are strong and equal, Pedal pulses are weak, NO edema, Capillary Refill is 3 seconds, Bilateral lower legs with multiple round dry eschars Skin: Stage II Sacral Ulcer 1). Cardiopulmonary Arrest Assessment/Plan * Cardiology Dr. Iglesias environmental communications specialist-->help appreciated * PEA s/p ROSC NSR * Echocardiogram (06/12/18): ejection fraction: 45-50%, left ventricular diastolic function is abnormal. left atrium size looks normal right atrium size looks normal. trace to mild tricupsid regurgitaton * Solumedrol 20 mg IV Q12H 2). Hyponatremia Assessment/Plan * Nephrology Dr. Shafer on board-->help appreciated * Secondary to Alcohol Abuse * Received 3 NS boluses in ER * Seizure precautions * Normalized 3). Hypokalemia/Hypomagnesemia/Hypophosphotemia Assessment/Plan * Replete as needed 4). Metabolic Acidosis Assessment/Plan * Likely secondary to the Cadriopulmonary Arrest, GI bleed, Respiratory Distress * Improving 5). Seizure Assessment/Plan * Neurology Dr. Richie Rubi on board-->help appreciated * Risk factor: heavy alcohol use and hyponatremia, hypomagnesium * Head CT (06/11/18): no acute intracranial abnormality. Chronic microvascular ischemic changes. sinus mucosal disease as above * He has a history of alcohol withdrawal seizures * Keppra 500 mg IV Q12H * Recommend EEG if mental status does not improve after extubation 6). Anemia likely secondary to GI Bleed History of Peptic Ulcer Disease Bleeding Ulcer Assessment/Plan * GI Dr. Ho on consult help appreciated * CT Chest/abdomen/pelvis (06/12/18): distended bowel suggesting an ileus. Markedly limited evaluation of the bowel without oral or intravenous contrast. Suggestion of prior Bilroth 2 procedure. Fluid filled dilatation of small bowel andproximal colon. Fluid filled dilatation of the small bowel and prozimal colon. Fluid in the descending colon without a sharp transition sozne. Portions of transverse colon were not well visualized. * NPO except medications today. Continue Protonix infusion, add liquid carafate , 1 gm via NGT qid. * Hgb stable this am s/p 2U PRBCs * Monitor H/H and transfuse as needed * Carafate 1g qid once he is extubated and able to pass swallow evaluation * S/P EGD POD2: 2 anastomotic ulcers with visible vessel s/p APC and 5 clips, one ulcer with visible vessel and adherent clot was not intervened on due to adverse location--->If pt develops further bleeding will need IR and Surgery on board, difficult to treat endoscopically * Monitor H/H: on 06/16/18 it dropped down to 6.6 and he is receiving 2 units of PRBC * No NSAIDS and strong history of alcohol abuse 7). Hypocalcemia Assessment/Plan * Monitor 8). Acute Respiratory Failure Assessment/Plan * Extubated 06/12/18 and Re-intubated on 06/14/18 * Management per ICU * Noted rib fractures * Patient is on Zosyn and Vancomycin to cover for bilateral pneumonia * Solumedrol 20 mg IV Q12H 9) Open Wounds on Sacrum Assessment/Plan * Turn [id number] * MediHoney with Optifoam Dressing 10) Bilateral Anterior Rib and Sternal Fractures Assessment/Plan * Noted on CT Chest * Secondary to CPR given cardiopulmonary arrest 11) Pneumonia Assessment/Plan * CT Chest 06/11/18: thinned walled cavity in the right upper lobe which may be the sequelae of prior infection 5mm subpleural nodule within the anterior right middle lobe. Focal consolidation within the inferior right middle lobe. Focal consolidation within the right lower lobe. Patchy ground glass opacities in both lungs which and nonspecific but may secondary to alectasis versus contusion versus pneumonitis. * Zosyn 3.375g IV Q8H (active since 06/11/18) and Vancomycin 1 gm IV Q12H ( active since 06/14/18) * Vancomycin Trough at 8:30 AM 06/16/18 was ordered but not performed. It was re - ordered for 8:30 PM 06/16/18. Goal trough between 15 and 20 12) Urinary tract infection * Zosyn 3.375g IV Q8H (active since 06/11/18) * Repeat urine culture 06/13/18 showed NO growth 13) Bacteremia * Repeat blood culture 06/12/18 is negative to date 14) Alcoholism * Hx heavy use * On Ativan PRN and Precedex 15) Prophylactic measure * Protonix 40 mg IV Q12H * Versed 2 mg IV Q4H PRN Agitation * Chemical anticoagulation held secondary to GI bleed * Turn L0flooy * Aspiration precautions * Seizure precautions * Wound care on board Prem Noland D.O. Objective - Vital Signs/Intake and Output Vital Signs (last 24 hours): Temp Pulse Resp BP Pulse Ox 97.8 F 95 H 20 143/77 100 06/16/18 17:00 06/16/18 17:00 06/16/18 17:00 06/16/18 17:00 06/16/18 17:00 Intake and Output: 06/16/18 06/16/18 06:59 18:59 Intake Total 1715.4 1747.2 Output Total 830 570 Balance 885.4 1177.2 - Medications Medications: Current Medications Acetylcysteine (Acetylcysteine 20%) 4 ml INH Q6H [facility] Last Admin: 06/16/18 16:36 Dose: 4 ml Albuterol/Ipratropium (Duoneb 3 Mg/0.5 Mg (3 Ml) Ud) 3 ml INH RQ4 [facility] Last Admin: 06/16/18 16:36 Dose: 3 ml Levetiracetam 500 mg/ Dextrose 105 mls @ 420 mls/hr IVPB Q12H [facility] Last Admin: 06/16/18 07:50 Dose: 420 mls/hr Sodium Chloride (Sodium Chloride 0.9%) 1,000 mls @ 100 mls/hr IV .Q10H [facility] Last Admin: 06/16/18 06:44 Dose: Not Given Propofol (Diprivan) 1,000 mg in 100 mls @ 1.442 mls/hr IV .Q24H PRN; Protocol; 5 MCG/KG/MIN PRN Reason: TITRATE PER MD ORDER Last Admin: 06/16/18 09:14 Dose: 50 mcg/kg/min, 14.424 mls/hr Norepinephrine Bitartrate 4 mg (/ Sodium Chloride) 254 mls @ 15.24 mls/hr IV .[id number] PRN; Protocol; 4 MCG/MIN PRN Reason: TITRATE PER MD ORDER Phenylephrine HCl 30 mg/ (Sodium Chloride) 253 mls @ 10.12 mls/hr IV .Q24H PRN ; Protocol; 20 MCG/MIN PRN Reason: TITRATE PER MD ORDER Last Titration: 06/15/18 13:00 Dose: 0 mcg/min, 0 mls/hr Piperacillin Sod/Tazobactam Sod (Zosyn 3.375 Gm Iv Premix) 3.375 gm in 50 mls @ 100 mls/hr IVPB Q6H [facility] PRN Reason: Protocol Last Admin: 06/16/18 11:56 Dose: 100 mls/hr Vancomycin/Sodium Chloride (Vancomycin 1 Gm/Ns 200 Ml) 1 gm in 200 mls @ 133 mls/hr IVPB Q12H [facility] PRN Reason: Protocol Stop: 06/19/18 21:01 Last Admin: 06/16/18 09:49 Dose: 133 mls/hr Chromium/Copper/Manganese/Zinc 1 ml/ Heparin Sodium (Porcine ) 1,000 units/ Amino Acids/Electrolytes/Dextrose 1,002 mls @ 70 mls/hr IV .[id number] ONE Stop: 06/16/18 22:48 Folic Acid 1 mg/ Sodium (Chloride) 50.2 mls @ 100.4 mls/hr IV DAILY [facility] Lorazepam (Ativan) 1 mg IVP Q4H PRN PRN Reason: Anxiety Last Admin: 06/15/18 18:51 Dose: 1 mg Methylprednisolone (Solu-Medrol) 20 mg IV Q12 [facility] Midazolam HCl (Versed Inj) 2 mg IVP Q4 PRN PRN Reason: Agitation Pantoprazole Sodium (Protonix Inj) 40 mg IVP Q12 [facility] Last Admin: 06/16/18 09:24 Dose: 40 mg Sucralfate (Carafate Oral Susp) 1 gm PO QID [facility] Last Admin: 06/16/18 14:37 Dose: 1 gm - Labs Labs: 06/16/18 06:00 06/16/18 06:00 PT 16.0 SECONDS (9.7-12.2) H 06/13/18 06:20 INR 1.5 06/13/18 06:20 APTT 40 SECONDS (21-34) H 06/10/18 23:37
[2018-06-16 18:17] LABS: BASO % 0.3 % (0.0-2.0); LYMPH # 0.3 K/uL (1.0-4.3); LYMPH % 4.9 % (20.0-40.0); MEAN CORPUSCULAR HEMOGLOBIN 30.1 pg (27.0-31.0); MEAN CORPUSCULAR HGB CONC 34.4 g/dL (33.0-37.0); MEAN PLATELET VOLUME 7.3 fL (7.2-11.7); MONO # 0.4 K/uL (0.0-0.8); MONO % 6.2 % (0.0-10.0); NEUT # 6.3 K/uL (1.8-7.0); NEUT % 88.6 % (50.0-75.0); NRBC % 0.2 % (0.0-2.0); PLATELET COUNT 186 K/uL (130-400); RBC 3.13 Mil/uL (4.40-5.90); RED CELL DISTRIBUTION WIDTH 20.9 % (11.5-14.5); WHITE BLOOD COUNT 7.1 K/uL (4.8-10.8)
[2018-06-16 18:19] LABS: HEMOGLOBIN 9.4 g/dL (12.0-18.0); MEAN CELL VOLUME 87.7 fL (80.0-94.0)
[2018-06-16 18:45] LABS: ALB/GLOB RATIO 0.9 (1.0-2.1); ALBUMIN 2.6 g/dL (3.5-5.0); ALT/SGPT 36 U/L (21-72); AST/SGOT 24 U/L (17-59); BLOOD UREA NITROGEN 6 mg/dL (9-20); CALCIUM 8.4 mg/dl (8.6-10.4); GFR NON-AFRICAN AMERICAN > 60
[2018-06-16 18:51] LABS: BANDS 7 % (0-2); LYMPHOCYTE 3 % (20-40); MICROCYTOSIS SLIGHT; MONOCYTE 6 % (0-10); NEUTROPHIL 84 % (50-75); PLATELET ESTIMATE NORMAL (NORMAL); POLYCHROMIC SLIGHT; TOTAL CELLS COUNTED 100
[2018-06-16 19:07] LABS: HYPOCHROMIC SLIGHT; SCHISTOCYTES SLIGHT
[2018-06-16] MEDS ORDERED: MethylPREDNISolone 40 mg Vial IV SCH ×2 (22:00)
[2018-06-17] MEDS: Propofol 10 mg/ml 1,000 MG/100 ML VIAL IV PRN ×2 (00:01→05:15)
[2018-06-17] MEDS: Albuterol-Ipratrop 3 mg / 0.5 (3 ml) UD INH SCH ×6 (00:31→20:19)
[2018-06-17] MEDS ORDERED: Acetylcysteine 20% Inhal Soln (4ml) INH SCH (02:00)
[2018-06-17] MEDS: Sodium Chloride 0.9% 1,000 ML IV SCH ×3 (02:33→13:59)
[2018-06-17 03:50] LABS: BASO # 0.1 K/uL (0.0-0.2); HEMOGLOBIN 9.4 g/dL (12.0-18.0); LYMPH # 0.5 K/uL (1.0-4.3); LYMPH % 7.3 % (20.0-40.0); MEAN CELL VOLUME 86.8 fL (80.0-94.0); MEAN CORPUSCULAR HEMOGLOBIN 30.2 pg (27.0-31.0); MEAN CORPUSCULAR HGB CONC 34.8 g/dL (33.0-37.0); MONO # 0.5 K/uL (0.0-0.8); MONO % 7.5 % (0.0-10.0); NEUT # 5.4 K/uL (1.8-7.0); NEUT % 84.2 % (50.0-75.0); NRBC % 0.2 % (0.0-2.0); PLATELET COUNT 172 K/uL (130-400); RBC 3.12 Mil/uL (4.40-5.90); RED CELL DISTRIBUTION WIDTH 21.1 % (11.5-14.5); WHITE BLOOD COUNT 6.5 K/uL (4.8-10.8)
[2018-06-17 04:04] LABS: ALB/GLOB RATIO 0.9 (1.0-2.1); ALBUMIN 2.6 g/dL (3.5-5.0); ALT/SGPT 39 U/L (21-72); AST/SGOT 34 U/L (17-59); BLOOD UREA NITROGEN 6 mg/dL (9-20); CALCIUM 8.3 mg/dl (8.6-10.4); GFR NON-AFRICAN AMERICAN > 60
[2018-06-17] MEDS: Vancomycin 1 gm/NS 200 ml 1 GM/200 ML BAG IVPB SCH ×2 (04:13→21:41)
[2018-06-17] MEDS: Piperacill/Tazo 3.375gm in Dex 3.375 GM/50 ML BAG IVPB SCH ×4 (04:14→23:12)
[2018-06-17 05:28] LABS: ARTERIAL BLOOD GAS HCO3 23.9 mmol/L (21-28); ARTERIAL BLOOD GAS HEMOGLOBIN 9.3 g/dL (11.7-17.4); ARTERIAL BLOOD GAS O2 SAT 99.2 % (95-98); ARTERIAL BLOOD GAS PCO2 31 mm/Hg (35-45); ARTERIAL BLOOD GAS PH 7.46 (7.35-7.45); ARTERIAL BLOOD GAS PO2 144 mm/Hg (80-100)
[2018-06-17 05:28] LABS: BANDS 1 % (0-2); LYMPHOCYTE 7 % (20-40); MONOCYTE 7 % (0-10); NEUTROPHIL 85 % (50-75); PLATELET ESTIMATE NORMAL (NORMAL); TOTAL CELLS COUNTED 100
[2018-06-17 05:29] LABS: ANISOCYTOSIS MODERATE; MICROCYTOSIS SLIGHT; OVALOCYTES SLIGHT; POLYCHROMIC MODERATE
[2018-06-17 05:30] LABS: TEARDROP CELLS SLIGHT
--- NOTE | 2018-06-17 06:45 | CP.PCM.PN ---
<Lars Jenkins - Last Filed: 06/17/18 12:17> Subjective - Date & Time of Evaluation Date of Evaluation: 06/17/18 Time of Evaluation: 06:50 - Subjective Subjective: PGY-4 GI Fellow Prog Note No reported events overnight. Pt remains intubated and sedated. BMs described as dark green. Hgb stable after 2 units PRBCs with appropriate response. Unable to obtain ROS due to clinical condition Objective - Vital Signs/Intake and Output Vital Signs (last 24 hours): Temp Pulse Resp BP Pulse Ox 98.2 F 64 18 155/72 H 100 06/17/18 04:00 06/17/18 06:11 06/17/18 06:11 06/17/18 06:11 06/17/18 06:11 Intake and Output: 06/16/18 06/17/18 18:59 06:59 Intake Total 3228.7 2768 Output Total 630 878 Balance 2598.7 1890 - Medications Medications: Current Medications Acetylcysteine (Acetylcysteine 20%) 4 ml INH RQ6 [facility] Last Admin: 06/17/18 03:13 Dose: 4 ml Albuterol/Ipratropium (Duoneb 3 Mg/0.5 Mg (3 Ml) Ud) 3 ml INH RQ4 [facility] Last Admin: 06/17/18 03:13 Dose: 3 ml Levetiracetam 500 mg/ Dextrose 105 mls @ 420 mls/hr IVPB Q12H [facility] Last Admin: 06/16/18 19:35 Dose: 420 mls/hr Sodium Chloride (Sodium Chloride 0.9%) 1,000 mls @ 100 mls/hr IV .Q10H [facility] Last Admin: 06/17/18 02:33 Dose: Not Given Propofol (Diprivan) 1,000 mg in 100 mls @ 1.442 mls/hr IV .Q24H PRN; Protocol; 5 MCG/KG/MIN PRN Reason: TITRATE PER MD ORDER Last Admin: 06/17/18 05:15 Dose: 60 mcg/kg/min, 17.309 mls/hr Piperacillin Sod/Tazobactam Sod (Zosyn 3.375 Gm Iv Premix) 3.375 gm in 50 mls @ 100 mls/hr IVPB Q6H [facility] PRN Reason: Protocol Last Admin: 06/17/18 04:14 Dose: 100 mls/hr Folic Acid 1 mg/ Sodium (Chloride) 50.2 mls @ 100.4 mls/hr IV DAILY [facility] Last Admin: 06/16/18 17:00 Dose: 100.4 mls/hr Vancomycin/Sodium Chloride (Vancomycin 1 Gm/Ns 200 Ml) 1 gm in 200 mls @ 166.7 mls/hr IVPB Q18H [facility] PRN Reason: Protocol Stop: 06/22/18 04:01 Last Admin: 06/17/18 04:13 Dose: 166.7 mls/hr Lorazepam (Ativan) 1 mg IVP Q4H PRN PRN Reason: Anxiety Last Admin: 06/15/18 18:51 Dose: 1 mg Methylprednisolone (Solu-Medrol) 20 mg IV Q12 [facility] Last Admin: 06/16/18 21:45 Dose: 20 mg Midazolam HCl (Versed Inj) 2 mg IVP Q4 PRN PRN Reason: Agitation Pantoprazole Sodium (Protonix Inj) 40 mg IVP Q12 [facility] Last Admin: 06/16/18 21:45 Dose: 40 mg Sucralfate (Carafate Oral Susp) 1 gm PO QID [facility] Last Admin: 06/16/18 21:44 Dose: 1 gm - Labs Labs: 06/17/18 03:46 06/17/18 03:46 PT 16.0 SECONDS (9.7-12.2) H 06/13/18 06:20 INR 1.5 06/13/18 06:20 APTT 40 SECONDS (21-34) H 06/10/18 23:37 - Constitutional Appears: Chronically Ill - Head Exam Additional comments: Sedated, intubated on vent - ENT Exam ENT Exam: Mucous Membranes Dry, Normal External Ear Exam Additional comments: ET tube in place - Respiratory Exam Additional comments: clear to auscultation anteriorly - Cardiovascular Exam Cardiovascular Exam: REGULAR RHYTHM, RRR - GI/Abdominal Exam GI & Abdominal Exam: Distended (midly), Soft, Normal Bowel Sounds. absent: Firm , Guarding, Rigid - Skin Skin Exam: Dry Additional comments: L IJ in place Assessment and Plan - Assessment and Plan (Free Text) Assessment: 52yo WM with a h/o of alcohol abuse, seizure disorder with medication noncompliance, PUD with GI bleed and Bilroth II 5yrs ago at [facility] [place], COPD. Pt presenting to the ER s/p PEA cardiopulmonary arrest. GI was consulted for anemia and GI bleeding. # Anemia, Upper GI Bleed, h/o Bilroth II: s/p EGD with PUD and ulcers with stigmata of recent hemorrhage. FC IIa (s/p APC and clips) and FC IIb (not intervened due to adverse location endoscopically. s/p 2 units PRBCs on 06/11, and again 2 units PRBCs on 06/16 with appropriate response. No signs off active bleed since EGD 06/11/18. # Cardiopulmonary Arrest: Intubated on admission, few days on BiPAP but ultimately re-intubated # Metabolic Acidosis, Hypokalemia, Hyponatremia: Pt with significant electrolyte abnormalities being corrected by Nephrology and Hospitalist # Seizure # Alcohol abuse Plan: -Cont supportive care -Cont NG with TFs -Active GI bleeding resolved for now, off pressors, Hgb with appropriate response to 2 units PRBCs on 06/16. -Cont to monitor H&H, transfuse Hgb <7 -Carafate 1g qid -IV PPI 40 mg IV BID -If pt develops further bleeding will need IR and Surgery on board, difficult to treat endoscopically Pt seen and examined with Dr. Ho. Thank you for the consult, will sign off for now. Please page if questions. <Kenrick Ho - Last Filed: 06/17/18 12:30> Objective - Vital Signs/Intake and Output Vital Signs (last 24 hours): Temp Pulse Resp BP Pulse Ox 98.9 F 66 20 156/75 H 99 06/17/18 08:00 06/17/18 11:41 06/17/18 11:41 06/17/18 11:41 06/17/18 11:41 Intake and Output: 06/17/18 06/17/18 06:59 18:59 Intake Total 2768 595 Output Total 878 650 Balance 1890 -55 - Medications Medications: Current Medications Albuterol/Ipratropium (Duoneb 3 Mg/0.5 Mg (3 Ml) Ud) 3 ml INH RQ4 [facility] Last Admin: 06/17/18 08:02 Dose: 3 ml Chlordiazepoxide (Librium) 50 mg PO Q8 [facility] Levetiracetam 500 mg/ Dextrose 105 mls @ 420 mls/hr IVPB Q12H [facility] Last Admin: 06/17/18 07:43 Dose: 420 mls/hr Sodium Chloride (Sodium Chloride 0.9%) 1,000 mls @ 100 mls/hr IV .Q10H [facility] Last Admin: 06/17/18 11:21 Dose: 100 mls/hr Propofol (Diprivan) 1,000 mg in 100 mls @ 1.442 mls/hr IV .Q24H PRN; Protocol; 5 MCG/KG/MIN PRN Reason: TITRATE PER MD ORDER Last Titration: 06/17/18 08:34 Dose: 20 mcg/kg/min, 5.77 mls/hr Piperacillin Sod/Tazobactam Sod (Zosyn 3.375 Gm Iv Premix) 3.375 gm in 50 mls @ 100 mls/hr IVPB Q6H [facility] PRN Reason: Protocol Last Admin: 06/17/18 11:19 Dose: 100 mls/hr Folic Acid 1 mg/ Sodium (Chloride) 50.2 mls @ 100.4 mls/hr IV DAILY [facility] Last Admin: 06/17/18 11:50 Dose: 100.4 mls/hr Vancomycin/Sodium Chloride (Vancomycin 1 Gm/Ns 200 Ml) 1 gm in 200 mls @ 166.7 mls/hr IVPB Q18H [facility] PRN Reason: Protocol Stop: 06/22/18 04:01 Last Admin: 06/17/18 04:13 Dose: 166.7 mls/hr Dexmedetomidine HCl 200 mcg/ (Sodium Chloride) 50 mls @ 2.58 mls/hr IV TITR PRN ; Protocol; 0.2 MCG/KG/HR PRN Reason: Agitation Last Admin: 06/17/18 11:51 Dose: 0.2 mcg/kg/hr, 2.58 mls/hr Potassium Chloride (Potassium Chloride 10 Meq/100 Ml) 10 meq in 100 mls @ 100 mls/hr IVPB Q1H [facility] Stop: 06/17/18 15:59 Potassium Phosphate 15 mmole/ (Dextrose) 255 mls @ 42.5 mls/hr IVPB ONCE ONE Stop: 06/17/18 16:20 Lorazepam (Ativan) 1 mg IVP Q4H PRN PRN Reason: Anxiety Last Admin: 06/15/18 18:51 Dose: 1 mg Methylprednisolone (Solu-Medrol) 40 mg IV Q6H [facility] Last Admin: 06/17/18 08:10 Dose: 40 mg Pantoprazole Sodium (Protonix Inj) 40 mg IVP Q12 [facility] Last Admin: 06/17/18 11:25 Dose: 40 mg Potassium Chloride (Potassium Chloride Oral Soln) 40 meq PO Q6H [facility] Stop: 06/18/18 04:31 Last Admin: 06/17/18 11:32 Dose: 40 meq Sucralfate (Carafate Oral Susp) 1 gm PO QID [facility] Last Admin: 06/17/18 11:31 Dose: 1 gm - Labs Labs: 06/17/18 03:46 06/17/18 03:46 PT 16.0 SECONDS (9.7-12.2) H 06/13/18 06:20 INR 1.5 06/13/18 06:20 APTT 40 SECONDS (21-34) H 06/10/18 23:37 Attending/Attestation - Attestation I have personally seen and examined this patient.: Yes I have fully participated in the care of the patient.: Yes I have reviewed all pertinent clinical information, including history, physical exam and plan: Yes Notes (Text): 06/17/18 12:28 I have seen and examined patient with GI fellow. No acute events overnight, he remains intubated in intensive care unit. Patient with several brown colored bowel movements today thus far, tolerating tube feeding without difficulty. He is agitated, attempting self-extubation. Review of vitals from today shows elevated BP. ETOH abuse Seizure disorder COPD Cardiac arrest Anemia - s/p EGD with treatment of anastomotic ulceration - H/H stable s/p PRBC transfusion, no overt bleeding noted, continue to monitor - Continue with PPI therapy - Tube feeding as tolerated - Ventilator management as per critical care team - Continue to monitor for signs of ETOH withdrawal - No further planned GI intervention, will sign off case. Please reconsult as necessary, thank you.
[2018-06-17] MEDS: MethylPREDNISolone 40 mg Vial IV SCH ×3 (08:10→21:40)
--- NOTE | 2018-06-17 10:13 | RAD ---
Date of service: 06/17/2018 HISTORY: intubated COMPARISON: No prior. FINDINGS: In situ ETT, the tip of which lies approximately 3.2 cm above lila. NGT tip overlies left upper quadrant of the abdomen. No change left IJ central line with tip in the SVC. LUNGS: Minor pulmonary venous congestive changes slightly improved. Persistent left lower lobe atelectasis and or infiltrate. Atelectasis and/or infiltrate right lung base slightly improved. PLEURA: No significant pleural effusion identified, no pneumothorax apparent. CARDIOVASCULAR: Cardiac silhouette unchanged OSSEOUS STRUCTURES: No significant abnormalities. VISUALIZED UPPER ABDOMEN: Normal. OTHER FINDINGS: None. IMPRESSION: Support lines and tubes as above. Minor pulmonary venous congestive changes slightly improved. Persistent left lower lobe atelectasis and or infiltrate. Atelectasis and/or infiltrate right lung base slightly improved.
[2018-06-17] MEDS ORDERED: Potassium Phosphate 15 MMOLE in Dextrose 5% In Water 250 ML IVPB ONE (10:21)
[2018-06-17] MEDS ORDERED: Propofol 10 mg/ml Inj (20 ML) ONE (10:32)
--- NOTE | 2018-06-17 10:58 | CP.CCUPN ---
<Melvin Martínez - Last Filed: 06/17/18 12:28> CCU Subjective - Physician Review Subjective (Free Text): Melvin Martínez DO PGY-1, ICU progress note for Dr. Arcelia Noland Patient was seen and examined at beside. Overnight, patient had a dark green bowel movement. Urethral woodruff changed to [place] catheter. Urine output over 12 hours: 875 mL. Pt afebrile overnight. He was weaned off propofol sedation this morning for sedation vacation and appears agitated, kicking his legs in the air. A 12 point ROS not obtainable as patient is intubated. Pt was started on precedex for sedation. Patient's mother is at bedside. A 12-point ROS was reviewed and is unremarkable. CCU Objective - Vital Signs / Intake & Output Vital Signs (Last 4 hours): Vital Signs Temp Pulse Resp BP Pulse Ox 06/17/18 10:41 87 26 H 175/85 H 98 06/17/18 10:11 76 23 165/75 H 100 06/17/18 10:00 69 28 H 100 06/17/18 09:41 67 22 150/78 100 06/17/18 09:11 88 15 150/73 100 06/17/18 09:00 62 21 100 06/17/18 08:41 65 16 162/74 H 100 06/17/18 08:11 63 16 157/74 H 100 06/17/18 08:00 98.9 F 55 L 16 100 06/17/18 07:41 60 16 156/72 H 100 06/17/18 07:11 59 L 16 153/75 H 100 06/17/18 07:00 56 L 16 100 Intake and Output (Last 8hrs): Intake & Output 06/16/18 06/17/18 06/17/18 22:59 06:59 14:59 Intake Total 2466.7 1692 595 Output Total 360 578 650 Balance 2106.7 1114 -55 Weight 51.71 kg Intake: IV 100 200 75 Intake, IV Amount 1801.7 1252 400 LEFT IJ DISTAL PORT 126.7 152 50 LEFT IJ MEDIAL PORT 800 300 LEFT IJ PROXIMAL PORT 875 800 350 Tube Feeding 240 240 120 Blood Product 325 Red Blood Cells Cpd As1 325 Lr Unit [id number] Other 0 Red Blood Cells Cpd As1 0 Lr Unit [id number] Output: Urine 360 575 650 Condom 360 575 650 Stool 0 3 0 Other: # Bowel Movements 1 - Physical Exam Head: Positive for: Atraumatic, Normocephalic Pupils: Positive for: PERRL Extroacular Muscles: Positive for: EOMI Conjunctiva: Positive for: Normal Mouth: Positive for: Moist Mucous Membranes, Other ((+) ETT) Nose (Internal): Positive for: Normal Inspection, Other ((+) NGT feeds) Neck: Positive for: Normal Range of Motion Respiratory/Chest: Positive for: Accessory Muscle Use, Decreased Breath Sounds ( (+) decreased breath sounds at the right base). Negative for: Good Air Exchange , Wheezes, Rhonchi Cardiovascular: Positive for: Normal S1, S2, Tachycardic Abdomen: Positive for: Normal Bowel Sounds. Negative for: Tenderness (abdomen is soft), Distention Upper Extremity: Positive for: Normal Inspection, NORMAL PULSES. Negative for: Edema Lower Extremity: Positive for: Normal Inspection. Negative for: Edema, NORMAL PULSES ((+) 3+ left DP pulse, (+) 1+ left DP pulse) Neurological: Positive for: Other (intubated and sedated). Negative for: GCS= 15 (pt intubated and sedated GCS 8t (E2, V1t, M5)) Skin: Positive for: Warm, Dry, Normal Color Psychiatric: Positive for: Other (intubated and sedated) - Medications Active Medications: Active Medications Generic Name Dose Route Start Last Admin Trade Name Freq PRN Reason Stop Dose Admin Albuterol/Ipratropium 3 ml 06/15/18 00:00 06/17/18 08:02 Duoneb 3 Mg/0.5 Mg (3 Ml) Ud INH 3 ml RQ4 MAYANK Administration Chlordiazepoxide 50 mg 06/17/18 14:00 Librium PO Q8 MAYANK Levetiracetam 500 mg/ Dextrose 105 mls @ 420 mls/hr 06/11/18 07:30 06/17/18 07:43 IVPB 420 mls/hr Q12H MAYANK Administration Sodium Chloride 1,000 mls @ 100 mls/hr 06/14/18 14:33 06/17/18 02:33 Sodium Chloride 0.9% IV Not Given .Q10H MAYANK Propofol 1,000 mg in 100 mls @ 1.442 mls/hr 06/14/18 19:02 06/17/18 08:34 Diprivan IV 20 mcg/kg/min .Q24H PRN 5.77 mls/hr TITRATE PER MD ORDER Titration Protocol 5 MCG/KG/MIN Piperacillin Sod/Tazobactam Sod 3.375 gm in 50 mls @ 100 mls/hr 06/14/18 23: 00 06/17/18 04:14 Zosyn 3.375 Gm Iv Premix IVPB 100 mls/hr Q6H MAYANK Administration Protocol Folic Acid 1 mg/ Sodium 50.2 mls @ 100.4 mls/hr 06/16/18 15:00 06/16/18 17:00 Chloride IV 100.4 mls/hr DAILY MAYANK Administration Vancomycin/Sodium Chloride 1 gm in 200 mls @ 166.7 mls/hr 06/17/18 04:00 04:13 Vancomycin 1 Gm/Ns 200 Ml IVPB 06/22/18 04:01 166.7 mls/hr Q18H MAYANK Administration Protocol Dexmedetomidine HCl 200 mcg/ 50 mls @ 2.58 mls/hr 06/17/18 11:00 Sodium Chloride IV TITR PRN Agitation Protocol 0.2 MCG/KG/HR Magnesium Sulfate/Dextrose 1 gm in 100 mls @ 300 mls/hr 06/17/18 10:30 Magnesium Sulfate 1 Gm/100 Ml D5w IVPB 06/17/18 11:19 Q30M MAYANK Potassium Chloride 10 meq in 100 mls @ 100 mls/hr 06/17/18 10:30 Potassium Chloride 10 Meq/100 Ml IVPB 06/17/18 14:29 Q1H MAYANK Potassium Phosphate 15 mmole/ 255 mls @ 42.5 mls/hr 06/17/18 10:21 Dextrose IVPB 06/17/18 16:20 ONCE ONE Lorazepam 1 mg 06/13/18 17:15 06/15/18 18:51 Ativan IVP 1 mg Q4H PRN Administration Anxiety Methylprednisolone 40 mg 06/17/18 08:15 06/17/18 08:10 Solu-Medrol IV 40 mg Q6H MAYANK Administration Pantoprazole Sodium 40 mg 06/14/18 10:00 06/16/18 21:45 Protonix Inj IVP 40 mg Q12 MAYANK Administration Potassium Chloride 40 meq 06/17/18 10:30 Potassium Chloride Oral Soln PO 06/18/18 04:31 Q6H MAYANK Sucralfate 1 gm 06/11/18 18:00 06/16/18 21:44 Carafate Oral Susp PO 1 gm QID MAYANK Administration - Patient Studies Lab Studies: Microbiology Studies 06/16/18 17:11 Gram Stain - Final Trachasp Sputum Culture - Preliminary No growth. 06/12/18 22:42 Blood Culture - Preliminary Blood NO GROWTH AFTER 4 DAYS 06/12/18 22:42 Blood Culture - Preliminary Blood NO GROWTH AFTER 4 DAYS 06/11/18 17:15 Blood Culture - Final Blood-Venous NO GROWTH AFTER 5 DAYS Gram Stain - Final TEST NOT PERFORMED Lab Studies 06/17/18 06/17/18 06/17/18 Range/Units 05:11 03:46 03:46 WBC (4.8-10.8) K/uL RBC (4.40-5.90) Mil/uL Hgb (12.0-18.0) g/dL Hct (35.0-51.0) % MCV (80.0-94.0) fL MCH (27.0-31.0) pg MCHC (33.0-37.0) g/dL RDW (11.5-14.5) % Plt Count (130-400) K/uL MPV (7.2-11.7) fL Neut % (Auto) (50.0-75.0) % Lymph % (Auto) (20.0-40.0) % Valley % (Auto) (0.0-10.0) % Eos % (Auto) (0.0-4.0) % Baso % (Auto) (0.0-2.0) % Neut # (Auto) (1.8-7.0) K/uL Lymph # (Auto) (1.0-4.3) K/uL Valley # (Auto) (0.0-0.8) K/uL Eos # (Auto) (0.0-0.7) K/uL Baso # (Auto) (0.0-0.2) K/uL Neutrophils % (Manual) (50-75) % Band Neutrophils % (0-2) % Lymphocytes % (Manual) (20-40) % Monocytes % (Manual) (0-10) % Platelet Estimate (NORMAL) Polychromasia Hypochromasia (manual) Anisocytosis (manual) Microcytosis (manual) Tear Drop Cells Ovalocytes Schistocytes Puncture Site Rb pCO2 31 L (35-45) mm/Hg pO2 144 H (80-100) mm/Hg HCO3 23.9 (21-28) mmol/L ABG pH 7.46 H (7.35-7.45) ABG Total CO2 23.0 (22-28) mmol/L ABG O2 Saturation 99.2 H (95-98) % ABG Base Excess -1.3 (-2.0-3.0) mmol/L ABG Hemoglobin 9.3 L (11.7-17.4) g/dL ABG Carboxyhemoglobin 1.3 (0.5-1.5) % POC ABG HHb (Measured) 0.8 (0.0-5.0) % ABG Methemoglobin 1.3 (0.0-3.0) % Bob Test Na A-a O2 Difference 102.0 mm/Hg Respiratory Index 0.7 Hgb O2 Saturation 96.5 (95.0-98.0) % Vent Mode Prvc Mechanical Rate 16 FiO2 40.0 % Tidal Volume 420 PEEP 9 Sodium 143 (132-148) mmol/L Potassium 3.1 L (3.6-5.2) mmol/L Chloride 111 H (98-107) mmol/L Carbon Dioxide 22 (22-30) mmol/L Anion Gap 13 (10-20) BUN 6 L (9-20) mg/dL Creatinine 0.5 L (0.8-1.5) mg/dL Est GFR ( Amer) > 60 Est GFR (Non-Af Amer) > 60 Random Glucose 169 H (75-110) mg/dL Calcium 8.3 L (8.6-10.4) mg/dl Phosphorus 1.9 L (2.5-4.5) mg/dL Magnesium 1.5 L (1.6-2.3) mg/dL Total Bilirubin 0.4 (0.2-1.3) mg/dL AST 34 (17-59) U/L ALT 39 (21-72) U/L Alkaline Phosphatase 58 (38-126) U/L Total Protein 5.4 L (6.3-8.3) g/dL Albumin 2.6 L (3.5-5.0) g/dL Globulin 2.8 (2.2-3.9) gm/dL Albumin/Globulin Ratio 0.9 L (1.0-2.1) Stool Occult Blood (NEGATIVE) Vancomycin Trough 13.5 H (5.0-10.0) ug/mL Blood Type Antibody Screen 06/17/18 06/16/18 06/16/18 Range/Units 03:46 21:23 18:07 WBC 6.5 (4.8-10.8) K/uL RBC 3.12 L (4.40-5.90) Mil/uL Hgb 9.4 L (12.0-18.0) g/dL Hct 27.1 L (35.0-51.0) % MCV 86.8 (80.0-94.0) fL MCH 30.2 (27.0-31.0) pg MCHC 34.8 (33.0-37.0) g/dL RDW 21.1 H (11.5-14.5) % Plt Count 172 (130-400) K/uL MPV 7.0 L (7.2-11.7) fL Neut % (Auto) 84.2 H (50.0-75.0) % Lymph % (Auto) 7.3 L (20.0-40.0) % Valley % (Auto) 7.5 (0.0-10.0) % Eos % (Auto) 0.0 (0.0-4.0) % Baso % (Auto) 1.0 (0.0-2.0) % Neut # (Auto) 5.4 (1.8-7.0) K/uL Lymph # (Auto) 0.5 L (1.0-4.3) K/uL Valley # (Auto) 0.5 (0.0-0.8) K/uL Eos # (Auto) 0.0 (0.0-0.7) K/uL Baso # (Auto) 0.1 (0.0-0.2) K/uL Neutrophils % (Manual) 85 H (50-75) % Band Neutrophils % 1 (0-2) % Lymphocytes % (Manual) 7 L (20-40) % Monocytes % (Manual) 7 (0-10) % Platelet Estimate Normal (NORMAL) Polychromasia Moderate Hypochromasia (manual) Anisocytosis (manual) Moderate Microcytosis (manual) Slight Tear Drop Cells Slight Ovalocytes Slight Schistocytes Puncture Site pCO2 (35-45) mm/Hg pO2 (80-100) mm/Hg HCO3 (21-28) mmol/L ABG pH (7.35-7.45) ABG Total CO2 (22-28) mmol/L ABG O2 Saturation (95-98) % ABG Base Excess (-2.0-3.0) mmol/L ABG Hemoglobin (11.7-17.4) g/dL ABG Carboxyhemoglobin (0.5-1.5) % POC ABG HHb (Measured) (0.0-5.0) % ABG Methemoglobin (0.0-3.0) % Bob Test A-a O2 Difference mm/Hg Respiratory Index Hgb O2 Saturation (95.0-98.0) % Vent Mode Mechanical Rate FiO2 % Tidal Volume PEEP Sodium 141 (132-148) mmol/L Potassium 3.5 L (3.6-5.2) mmol/L Chloride 113 H (98-107) mmol/L Carbon Dioxide 20 L (22-30) mmol/L Anion Gap 11 (10-20) BUN 6 L (9-20) mg/dL Creatinine 0.6 L (0.8-1.5) mg/dL Est GFR ( Amer) > 60 Est GFR (Non-Af Amer) > 60 Random Glucose 166 H (75-110) mg/dL Calcium 8.4 L (8.6-10.4) mg/dl Phosphorus 2.2 L (2.5-4.5) mg/dL Magnesium 1.6 (1.6-2.3) mg/dL Total Bilirubin 0.6 (0.2-1.3) mg/dL AST 24 (17-59) U/L ALT 36 (21-72) U/L Alkaline Phosphatase 59 (38-126) U/L Total Protein 5.3 L (6.3-8.3) g/dL Albumin 2.6 L (3.5-5.0) g/dL Globulin 2.7 (2.2-3.9) gm/dL Albumin/Globulin Ratio 0.9 L (1.0-2.1) Stool Occult Blood (NEGATIVE) Vancomycin Trough 18.9 H (5.0-10.0) ug/mL Blood Type Antibody Screen 06/16/18 06/16/18 06/16/18 Range/Units 18:07 08:35 07:27 WBC 7.1 (4.8-10.8) K/uL RBC 3.13 L (4.40-5.90) Mil/uL Hgb 9.4 L D (12.0-18.0) g/dL Hct 27.5 L (35.0-51.0) % MCV 87.7 D (80.0-94.0) fL MCH 30.1 (27.0-31.0) pg MCHC 34.4 (33.0-37.0) g/dL RDW 20.9 H (11.5-14.5) % Plt Count 186 (130-400) K/uL MPV 7.3 (7.2-11.7) fL Neut % (Auto) 88.6 H (50.0-75.0) % Lymph % (Auto) 4.9 L (20.0-40.0) % Valley % (Auto) 6.2 (0.0-10.0) % Eos % (Auto) 0.0 (0.0-4.0) % Baso % (Auto) 0.3 (0.0-2.0) % Neut # (Auto) 6.3 (1.8-7.0) K/uL Lymph # (Auto) 0.3 L (1.0-4.3) K/uL [place] # (Auto) 0.4 (0.0-0.8) K/uL Eos # (Auto) 0.0 (0.0-0.7) K/uL Baso # (Auto) 0.0 (0.0-0.2) K/uL Neutrophils % (Manual) 84 H (50-75) % Band Neutrophils % 7 H (0-2) % Lymphocytes % (Manual) 3 L (20-40) % Monocytes % (Manual) 6 (0-10) % Platelet Estimate Normal (NORMAL) Polychromasia Slight Hypochromasia (manual) Slight Anisocytosis (manual) Microcytosis (manual) Slight Tear Drop Cells Ovalocytes Schistocytes Slight Puncture Site pCO2 (35-45) mm/Hg pO2 (80-100) mm/Hg HCO3 (21-28) mmol/L ABG pH (7.35-7.45) ABG Total CO2 (22-28) mmol/L ABG O2 Saturation (95-98) % ABG Base Excess (-2.0-3.0) mmol/L ABG Hemoglobin (11.7-17.4) g/dL ABG Carboxyhemoglobin (0.5-1.5) % POC ABG HHb (Measured) (0.0-5.0) % ABG Methemoglobin (0.0-3.0) % Bob Test A-a O2 Difference mm/Hg Respiratory Index Hgb O2 Saturation (95.0-98.0) % Vent Mode Mechanical Rate FiO2 % Tidal Volume PEEP Sodium (132-148) mmol/L Potassium (3.6-5.2) mmol/L Chloride (98-107) mmol/L Carbon Dioxide (22-30) mmol/L Anion Gap (10-20) BUN (9-20) mg/dL Creatinine (0.8-1.5) mg/dL Est GFR ( Amer) Est GFR (Non-Af Amer) Random Glucose (75-110) mg/dL Calcium (8.6-10.4) mg/dl Phosphorus (2.5-4.5) mg/dL Magnesium (1.6-2.3) mg/dL Total Bilirubin (0.2-1.3) mg/dL AST (17-59) U/L ALT (21-72) U/L Alkaline Phosphatase (38-126) U/L Total Protein (6.3-8.3) g/dL Albumin (3.5-5.0) g/dL Globulin (2.2-3.9) gm/dL Albumin/Globulin Ratio (1.0-2.1) Stool Occult Blood Positive H (NEGATIVE) Vancomycin Trough (5.0-10.0) ug/mL Blood Type A POSITIVE Antibody Screen Negative Laboratory Results - last 24 hr 06/16/18 06/16/18 06/16/18 07:27 08:35 18:07 WBC 7.1 RBC 3.13 L Hgb 9.4 L D Hct 27.5 L MCV 87.7 D MCH 30.1 MCHC 34.4 RDW 20.9 H Plt Count 186 MPV 7.3 Neut % (Auto) 88.6 H Lymph % (Auto) 4.9 L Valley % (Auto) 6.2 Eos % (Auto) 0.0 Baso % (Auto) 0.3 Neut # (Auto) 6.3 Lymph # (Auto) 0.3 L Valley # (Auto) 0.4 Eos # (Auto) 0.0 Baso # (Auto) 0.0 Neutrophils % (Manual) 84 H Band Neutrophils % 7 H Lymphocytes % (Manual) 3 L Monocytes % (Manual) 6 Platelet Estimate Normal Polychromasia Slight Hypochromasia (manual) Slight Anisocytosis (manual) Microcytosis (manual) Slight Tear Drop Cells Ovalocytes Schistocytes Slight Puncture Site pCO2 pO2 HCO3 ABG pH ABG Total CO2 ABG O2 Saturation ABG Base Excess ABG Hemoglobin ABG Carboxyhemoglobin POC ABG HHb (Measured) ABG Methemoglobin Bob Test A-a O2 Difference Respiratory Index Hgb O2 Saturation Vent Mode Mechanical Rate FiO2 Tidal Volume PEEP Sodium Potassium Chloride Carbon Dioxide Anion Gap BUN Creatinine Est GFR ( Amer) Est GFR (Non-Af Amer) Random Glucose Calcium Phosphorus Magnesium Total Bilirubin AST ALT Alkaline Phosphatase Total Protein Albumin Globulin Albumin/Globulin Ratio Stool Occult Blood Positive H Vancomycin Trough Blood Type A POSITIVE Antibody Screen Negative 06/16/18 06/16/18 06/17/18 18:07 21:23 03:46 WBC 6.5 RBC 3.12 L Hgb 9.4 L Hct 27.1 L MCV 86.8 MCH 30.2 MCHC 34.8 RDW 21.1 H Plt Count 172 MPV 7.0 L Neut % (Auto) 84.2 H Lymph % (Auto) 7.3 L Valley % (Auto) 7.5 Eos % (Auto) 0.0 Baso % (Auto) 1.0 Neut # (Auto) 5.4 Lymph # (Auto) 0.5 L [place] # (Auto) 0.5 Eos # (Auto) 0.0 Baso # (Auto) 0.1 Neutrophils % (Manual) 85 H Band Neutrophils % 1 Lymphocytes % (Manual) 7 L Monocytes % (Manual) 7 Platelet Estimate Normal Polychromasia Moderate Hypochromasia (manual) Anisocytosis (manual) Moderate Microcytosis (manual) Slight Tear Drop Cells Slight Ovalocytes Slight Schistocytes Puncture Site pCO2 pO2 HCO3 ABG pH ABG Total CO2 ABG O2 Saturation ABG Base Excess ABG Hemoglobin ABG Carboxyhemoglobin POC ABG HHb (Measured) ABG Methemoglobin Bob Test A-a O2 Difference Respiratory Index Hgb O2 Saturation Vent Mode Mechanical Rate FiO2 Tidal Volume PEEP Sodium 141 Potassium 3.5 L Chloride 113 H Carbon Dioxide 20 L Anion Gap 11 BUN 6 L Creatinine 0.6 L Est GFR ( Amer) > 60 Est GFR (Non-Af Amer) > 60 Random Glucose 166 H Calcium 8.4 L Phosphorus 2.2 L Magnesium 1.6 Total Bilirubin 0.6 AST 24 ALT 36 Alkaline Phosphatase 59 Total Protein 5.3 L Albumin 2.6 L Globulin 2.7 Albumin/Globulin Ratio 0.9 L Stool Occult Blood Vancomycin Trough 18.9 H Blood Type Antibody Screen 06/17/18 06/17/18 06/17/18 03:46 03:46 05:11 WBC RBC Hgb Hct MCV MCH MCHC RDW Plt Count MPV Neut % (Auto) Lymph % (Auto) Valley % (Auto) Eos % (Auto) Baso % (Auto) Neut # (Auto) Lymph # (Auto) Valley # (Auto) Eos # (Auto) Baso # (Auto) Neutrophils % (Manual) Band Neutrophils % Lymphocytes % (Manual) Monocytes % (Manual) Platelet Estimate Polychromasia Hypochromasia (manual) Anisocytosis (manual) Microcytosis (manual) Tear Drop Cells Ovalocytes Schistocytes Puncture Site Rb pCO2 31 L pO2 144 H HCO3 23.9 ABG pH 7.46 H ABG Total CO2 23.0 ABG O2 Saturation 99.2 H ABG Base Excess -1.3 ABG Hemoglobin 9.3 L ABG Carboxyhemoglobin 1.3 POC ABG HHb (Measured) 0.8 ABG Methemoglobin 1.3 Bob Test Na A-a O2 Difference 102.0 Respiratory Index 0.7 Hgb O2 Saturation 96.5 Vent Mode Prvc Mechanical Rate 16 FiO2 40.0 Tidal Volume 420 PEEP 9 Sodium 143 Potassium 3.1 L Chloride 111 H Carbon Dioxide 22 Anion Gap 13 BUN 6 L Creatinine 0.5 L Est GFR ( Amer) > 60 Est GFR (Non-Af Amer) > 60 Random Glucose 169 H Calcium 8.3 L Phosphorus 1.9 L Magnesium 1.5 L Total Bilirubin 0.4 AST 34 ALT 39 Alkaline Phosphatase 58 Total Protein 5.4 L Albumin 2.6 L Globulin 2.8 Albumin/Globulin Ratio 0.9 L Stool Occult Blood Vancomycin Trough 13.5 H Blood Type Antibody Screen Fingerstick Blood Sugar Results: 158 Review of Systems - Review of Systems All systems: reviewed and no additional remarkable complaints except (as per HPI ) Critical Care Progress Note - Ventilator Checklist Head of Bed 30 Degrees: Yes Daily Sedation Vacation: Yes Daily Assessment of Readiness to Wean: Yes Daily Spontaneous Breathing Trial: Yes PUD Prophalyxis: Yes DVT Prophylaxis: Yes Oral Care with Chlorhexidine Gluconate {CHG}: Yes - Vent Settings MODE:: PRVC TIDAL VOLUME:: 450 RESP RATE:: 12 FIO2:: 30 PEEP:: 5 - Extremities/Vascular Does the Patient have a Central Venous Catheter?: Yes Does the Patient have a Woodruff Catheter?: No ([place]) - Prophylaxis GI Prophylaxis GI: PPI - Prophylaxis DVT Prophylaxis DVT: SCDs Assessment/Plan - Assessment and Plan (Free Text) Assessment: This is a 52 year old male with PMHx of alcohol use disorder, seizure disorder, PUD, partial gastrectomy, COPD, hiatal hernia who came to [facility] ED on 06/10 for cardiac arrest. Pt suffered a seizure and was found in PEA by EMS and intubated in the field. In [facility] ED pt in PEA again, coded x2 with CPR. Started on levophed with rosc. Hgb was noted to be 7.7/7.4, and hyponatremia at 109 (nephro consulted). Pt was transfused 2 units of pRBCs. On 06/11, pt had EGD which showed multiple gastric ulcers that were clipped. On 06/12, pt was extubated and placed on BPAP. 06/14, pt was noted to be severely tachypneic on BPAP, and decision was made to intubate the pt due to impending respiratory failure. Pt was hypotensive and hypoxic after intubation. On 06/16, hgb noted to be 6.6. Pt was treated with 2 units of pRBCs, with adequate response. Pt remains intubated , ventilated, sedated on precedex. Plan: Neuro: - monitor for mental status changes - pt AAOx3 at baseline - Sedated with precedex gtt. soft mittens for patient safety - loading dose of librium 150 mg PO, with maintenance dose of librium 25 mg q8h. - Ativan prn agitation discontinued due to respiratory depression with short episodes of apnea on cpap trial - History of alcohol use disorder and seizure disorder (with apparent inconsistent medication use). - continue Folic Acid and Thiamine due to history of alcohol use - continue Keppra due to history of seizure disorder - daily sedation vacation - EEG obtained for seizure likely due to alcohol withdrawal. Report (06/15) shows an abnormal awake and drowsy EEG which is very slow, indicating encephalopathy or medication effect. Recommend repeat EEG off sedation. - Neuro consult to Dr. Rubi; neuro is signed off case as of 06/16 Cardio: - maintain MAP>65 mmHg - echocardiogram (06/11) shows EF of 45-50%, Left ventricular diastolic function is abnormal. Transmitral doppler flow pattern is grade I-abnormal relaxation pattern. trace to mild tricuspid regurgitation. - troponin is normal - f/u cardiology recs Pulm: - PRVC (450, 5, 12, 30%) - ventilation weaning as tolerated - CXR (06/17) shows support lines and tubes in place. Minor pulmonary venous congestive changes slightly improved. Persistent left lower lobe atelectasis and or infiltrate. Atelectasis and/or infiltrate right lung base slightly improved. - continue empiric antibiotics for likely aspiration pneumonia - Chest CTA (06/14) showed NO evidence of PE. Extensive right lower lobe consolidation/atelectasis with lesser atelectasis in the right middle lobe and lingula. Multifocal ground-glass opacity. Possible infectious etiology. Fluid/ secretion in right lower lobe bronchus and possible right upper lobe bronchus. Consider aspiration as etiology. Mild mediastinal and right hilar lymphadenopathy. - abg shows adequate po2, mild respiratory alkalosis - maintain spo2>92% - methylprednisolone to 40 mg IV q6h - duonebs q4h - Continue suction GI: - s/p clipping of gastric ulcers (06/11) - NGT; continue jevity 1.5 - jevity 1.5 - protonix for PUD ppx - continue Carafate 1mg po qid as per GI - Gi recs IR and Surgery involvement if further bleeding, due to pt being difficult to treat endoscopically Renal: - BUN/Cr stable 6/0.5 - maintain euvolemia - Hypokalemia, hypomagnesemia, hypophosphetemia noted today; repleted - continue to monitor and replete electrolytes as needed ID: - extensive consolidation with fluid/secretion in bronchus on chest ct; likely aspiration pneumonia - continues to be Afebrile - no leukocyotosis - urine culture 06/13 final - no growth (06/11 culture: acintobacter baumannii) - blood culture 06/12 prelim x 2 - no growth after 4 days - Patient is currently on empiric antibiotic therapy due to likely aspiration pneumonia. - continue zosyn vancomycin - f/u vancomycin trough Heme: - H/H 9.4/27.1 s/p 2 units PRBC. No overt source of bleeding identified. GI aware. - anticoagulation contraindicated due to recent bleeding GI ulcer Endo: -maintain euglycemia Integumentary: - stage 2 ulcer on sacrum (see physical exam) - continue medihoney and optoform dressing as per primary team - wound care has been consulted PPX: protonix for pud; scds for dvt Dispo: Continue to manage pt in the ICU Case was reviewed and discussed with attending physician, Dr. Arcelia Noland <Jane Noland - Last Filed: 06/17/18 15:43> CCU Subjective - Physician Review Subjective (Free Text): Above resident documents my clinical management. 06/17/18 15:43 Critical Care Time Spent (in minutes): 45 CCU Objective - Vital Signs / Intake & Output Vital Signs (Last 4 hours): Vital Signs Temp Pulse Resp BP Pulse Ox 06/17/18 15:00 81 16 100 06/17/18 14:42 65 19 150/85 100 06/17/18 14:11 71 18 145/74 100 06/17/18 14:00 58 L 13 100 06/17/18 13:41 73 14 146/77 100 06/17/18 13:11 56 L 12 148/70 99 06/17/18 13:00 66 23 100 06/17/18 12:41 53 L 12 150/70 100 06/17/18 12:12 64 16 146/70 100 06/17/18 12:00 98.9 F 76 14 100 06/17/18 11:41 66 20 156/75 H 99 Intake and Output (Last 8hrs): Intake & Output 06/17/18 06/17/18 06/17/18 06:59 14:59 22:59 Intake Total 1692 1242.0 Output Total 578 650 Balance 1114 592.0 Weight 114 lb Intake: IV 200 103 Intake, IV Amount 1252 909.0 LEFT IJ DISTAL PORT 152 59.0 LEFT IJ MEDIAL PORT 300 100 LEFT IJ PROXIMAL PORT 800 750 Tube Feeding 240 180 Other 50 Output: Urine 575 650 Condom 575 650 Stool 3 0 Other: # Bowel Movements 1 - Medications Active Medications: Active Medications Generic Name Dose Route Start Last Admin Trade Name Freq PRN Reason Stop Dose Admin Albuterol/Ipratropium 3 ml 06/15/18 00:00 06/17/18 13:03 Duoneb 3 Mg/0.5 Mg (3 Ml) Ud INH Not Given RQ4 MAYANK Chlordiazepoxide 25 mg 06/17/18 18:00 Librium PO Q8 MAYANK Levetiracetam 500 mg/ Dextrose 105 mls @ 420 mls/hr 06/11/18 07:30 06/17/18 07:43 IVPB 420 mls/hr Q12H MAYANK Administration Piperacillin Sod/Tazobactam Sod 3.375 gm in 50 mls @ 100 mls/hr 06/14/18 23: 00 06/17/18 11:19 Zosyn 3.375 Gm Iv Premix IVPB 100 mls/hr Q6H MAYANK Administration Protocol Folic Acid 1 mg/ Sodium 50.2 mls @ 100.4 mls/hr 06/16/18 15:00 06/17/18 11:50 Chloride IV 100.4 mls/hr DAILY MAYANK Administration Vancomycin/Sodium Chloride 1 gm in 200 mls @ 166.7 mls/hr 06/17/18 04:00 04:13 Vancomycin 1 Gm/Ns 200 Ml IVPB 06/22/18 04:01 166.7 mls/hr Q18H MAYANK Administration Protocol Dexmedetomidine HCl 200 mcg/ 50 mls @ 2.58 mls/hr 06/17/18 11:00 06/17/18 13: 50 Sodium Chloride IV 0.3 mcg/kg/hr TITR PRN 3.87 mls/hr Agitation Titration Protocol 0.2 MCG/KG/HR Potassium Chloride 10 meq in 100 mls @ 100 mls/hr 06/17/18 12:00 06/17/18 14: 57 Potassium Chloride 10 Meq/100 Ml IVPB 06/17/18 15:59 100 mls/hr Q1H MAYANK Administration Potassium Phosphate 15 mmole/ 255 mls @ 42.5 mls/hr 06/17/18 10:21 06/17/18 13:33 Dextrose IVPB 06/17/18 16:20 42.5 mls/hr ONCE ONE Administration Methylprednisolone 40 mg 06/17/18 08:15 06/17/18 14:57 Solu-Medrol IV 40 mg Q6H MAYANK Administration Pantoprazole Sodium 40 mg 06/14/18 10:00 06/17/18 11:25 Protonix Inj IVP 40 mg Q12 MAYANK Administration Potassium Chloride 40 meq 06/17/18 10:30 06/17/18 11:32 Potassium Chloride Oral Soln PO 06/18/18 04:31 40 meq Q6H MAYANK Administration Sucralfate 1 gm 06/11/18 18:00 06/17/18 14:58 Carafate Oral Susp PO 1 gm QID MAYANK Administration - Patient Studies Lab Studies: Microbiology Studies 06/16/18 17:11 Gram Stain - Final Trachasp Sputum Culture - Preliminary No growth. 06/12/18 22:42 Blood Culture - Preliminary Blood NO GROWTH AFTER 4 DAYS 06/12/18 22:42 Blood Culture - Preliminary Blood NO GROWTH AFTER 4 DAYS 06/11/18 17:15 Blood Culture - Final Blood-Venous NO GROWTH AFTER 5 DAYS Gram Stain - Final TEST NOT PERFORMED Lab Studies 06/17/18 06/17/18 06/17/18 Range/Units 14:51 14:36 05:11 WBC (4.8-10.8) K/uL RBC (4.40-5.90) Mil/uL Hgb (12.0-18.0) g/dL Hct (35.0-51.0) % MCV (80.0-94.0) fL MCH (27.0-31.0) pg MCHC (33.0-37.0) g/dL RDW (11.5-14.5) % Plt Count (130-400) K/uL MPV (7.2-11.7) fL Neut % (Auto) (50.0-75.0) % Lymph % (Auto) (20.0-40.0) % Valley % (Auto) (0.0-10.0) % Eos % (Auto) (0.0-4.0) % Baso % (Auto) (0.0-2.0) % Neut # (Auto) (1.8-7.0) K/uL Lymph # (Auto) (1.0-4.3) K/uL Valley # (Auto) (0.0-0.8) K/uL Eos # (Auto) (0.0-0.7) K/uL Baso # (Auto) (0.0-0.2) K/uL Neutrophils % (Manual) (50-75) % Band Neutrophils % (0-2) % Lymphocytes % (Manual) (20-40) % Monocytes % (Manual) (0-10) % Platelet Estimate (NORMAL) Polychromasia Hypochromasia (manual) Anisocytosis (manual) Microcytosis (manual) Tear Drop Cells Ovalocytes Schistocytes Puncture Site Lra Rb pCO2 22 L 31 L (35-45) mm/Hg pO2 144 H 144 H (80-100) mm/Hg HCO3 25.7 23.9 (21-28) mmol/L ABG pH 7.60 H 7.46 H (7.35-7.45) ABG Total CO2 22.3 23.0 (22-28) mmol/L ABG O2 Saturation 99.5 H 99.2 H (95-98) % ABG Base Excess 0.9 -1.3 (-2.0-3.0) mmol/L ABG Hemoglobin 9.6 L 9.3 L (11.7-17.4) g/dL ABG Carboxyhemoglobin 1.6 H 1.3 (0.5-1.5) % POC ABG HHb (Measured) 0.5 0.8 (0.0-5.0) % ABG Methemoglobin 0.6 1.3 (0.0-3.0) % Bob Test Pos Na A-a O2 Difference 42.0 102.0 mm/Hg Respiratory Index 0.3 0.7 Hgb O2 Saturation 97.3 96.5 (95.0-98.0) % Vent Mode Cpap Prvc Mechanical Rate 16 FiO2 30.0 40.0 % Tidal Volume 420 PEEP 5 9 Pressure Support 10 Sodium (132-148) mmol/L Potassium (3.6-5.2) mmol/L Chloride (98-107) mmol/L Carbon Dioxide (22-30) mmol/L Anion Gap (10-20) BUN (9-20) mg/dL Creatinine (0.8-1.5) mg/dL Est GFR ( Amer) Est GFR (Non-Af Amer) Random Glucose (75-110) mg/dL Calcium (8.6-10.4) mg/dl Phosphorus (2.5-4.5) mg/dL Magnesium (1.6-2.3) mg/dL Total Bilirubin (0.2-1.3) mg/dL AST (17-59) U/L ALT (21-72) U/L Alkaline Phosphatase (38-126) U/L Total Protein (6.3-8.3) g/dL Albumin (3.5-5.0) g/dL Globulin (2.2-3.9) gm/dL Albumin/Globulin Ratio (1.0-2.1) Stool Occult Blood (NEGATIVE) Vancomycin Trough 17.6 H (5.0-10.0) ug/mL 06/17/18 06/17/18 06/17/18 Range/Units 03:46 03:46 03:46 WBC 6.5 (4.8-10.8) K/uL RBC 3.12 L (4.40-5.90) Mil/uL Hgb 9.4 L (12.0-18.0) g/dL Hct 27.1 L (35.0-51.0) % MCV 86.8 (80.0-94.0) fL MCH 30.2 (27.0-31.0) pg MCHC 34.8 (33.0-37.0) g/dL RDW 21.1 H (11.5-14.5) % Plt Count 172 (130-400) K/uL MPV 7.0 L (7.2-11.7) fL Neut % (Auto) 84.2 H (50.0-75.0) % Lymph % (Auto) 7.3 L (20.0-40.0) % Valley % (Auto) 7.5 (0.0-10.0) % Eos % (Auto) 0.0 (0.0-4.0) % Baso % (Auto) 1.0 (0.0-2.0) % Neut # (Auto) 5.4 (1.8-7.0) K/uL Lymph # (Auto) 0.5 L (1.0-4.3) K/uL Valley # (Auto) 0.5 (0.0-0.8) K/uL Eos # (Auto) 0.0 (0.0-0.7) K/uL Baso # (Auto) 0.1 (0.0-0.2) K/uL Neutrophils % (Manual) 85 H (50-75) % Band Neutrophils % 1 (0-2) % Lymphocytes % (Manual) 7 L (20-40) % Monocytes % (Manual) 7 (0-10) % Platelet Estimate Normal (NORMAL) Polychromasia Moderate Hypochromasia (manual) Anisocytosis (manual) Moderate Microcytosis (manual) Slight Tear Drop Cells Slight Ovalocytes Slight Schistocytes Puncture Site pCO2 (35-45) mm/Hg pO2 (80-100) mm/Hg HCO3 (21-28) mmol/L ABG pH (7.35-7.45) ABG Total CO2 (22-28) mmol/L ABG O2 Saturation (95-98) % ABG Base Excess (-2.0-3.0) mmol/L ABG Hemoglobin (11.7-17.4) g/dL ABG Carboxyhemoglobin (0.5-1.5) % POC ABG HHb (Measured) (0.0-5.0) % ABG Methemoglobin (0.0-3.0) % Bob Test A-a O2 Difference mm/Hg Respiratory Index Hgb O2 Saturation (95.0-98.0) % Vent Mode Mechanical Rate FiO2 % Tidal Volume PEEP Pressure Support Sodium 143 (132-148) mmol/L Potassium 3.1 L (3.6-5.2) mmol/L Chloride 111 H (98-107) mmol/L Carbon Dioxide 22 (22-30) mmol/L Anion Gap 13 (10-20) BUN 6 L (9-20) mg/dL Creatinine 0.5 L (0.8-1.5) mg/dL Est GFR ( Amer) > 60 Est GFR (Non-Af Amer) > 60 Random Glucose 169 H (75-110) mg/dL Calcium 8.3 L (8.6-10.4) mg/dl Phosphorus 1.9 L (2.5-4.5) mg/dL Magnesium 1.5 L (1.6-2.3) mg/dL Total Bilirubin 0.4 (0.2-1.3) mg/dL AST 34 (17-59) U/L ALT 39 (21-72) U/L Alkaline Phosphatase 58 (38-126) U/L Total Protein 5.4 L (6.3-8.3) g/dL Albumin 2.6 L (3.5-5.0) g/dL Globulin 2.8 (2.2-3.9) gm/dL Albumin/Globulin Ratio 0.9 L (1.0-2.1) Stool Occult Blood (NEGATIVE) Vancomycin Trough 13.5 H (5.0-10.0) ug/mL 06/16/18 06/16/18 06/16/18 Range/Units 21:23 18:07 18:07 WBC 7.1 (4.8-10.8) K/uL RBC 3.13 L (4.40-5.90) Mil/uL Hgb 9.4 L D (12.0-18.0) g/dL Hct 27.5 L (35.0-51.0) % MCV 87.7 D (80.0-94.0) fL MCH 30.1 (27.0-31.0) pg MCHC 34.4 (33.0-37.0) g/dL RDW 20.9 H (11.5-14.5) % Plt Count 186 (130-400) K/uL MPV 7.3 (7.2-11.7) fL Neut % (Auto) 88.6 H (50.0-75.0) % Lymph % (Auto) 4.9 L (20.0-40.0) % Valley % (Auto) 6.2 (0.0-10.0) % Eos % (Auto) 0.0 (0.0-4.0) % Baso % (Auto) 0.3 (0.0-2.0) % Neut # (Auto) 6.3 (1.8-7.0) K/uL Lymph # (Auto) 0.3 L (1.0-4.3) K/uL Valley # (Auto) 0.4 (0.0-0.8) K/uL Eos # (Auto) 0.0 (0.0-0.7) K/uL Baso # (Auto) 0.0 (0.0-0.2) K/uL Neutrophils % (Manual) 84 H (50-75) % Band Neutrophils % 7 H (0-2) % Lymphocytes % (Manual) 3 L (20-40) % Monocytes % (Manual) 6 (0-10) % Platelet Estimate Normal (NORMAL) Polychromasia Slight Hypochromasia (manual) Slight Anisocytosis (manual) Microcytosis (manual) Slight Tear Drop Cells Ovalocytes Schistocytes Slight Puncture Site pCO2 (35-45) mm/Hg pO2 (80-100) mm/Hg HCO3 (21-28) mmol/L ABG pH (7.35-7.45) ABG Total CO2 (22-28) mmol/L ABG O2 Saturation (95-98) % ABG Base Excess (-2.0-3.0) mmol/L ABG Hemoglobin (11.7-17.4) g/dL ABG Carboxyhemoglobin (0.5-1.5) % POC ABG HHb (Measured) (0.0-5.0) % ABG Methemoglobin (0.0-3.0) % Bob Test A-a O2 Difference mm/Hg Respiratory Index Hgb O2 Saturation (95.0-98.0) % Vent Mode Mechanical Rate FiO2 % Tidal Volume PEEP Pressure Support Sodium 141 (132-148) mmol/L Potassium 3.5 L (3.6-5.2) mmol/L Chloride 113 H (98-107) mmol/L Carbon Dioxide 20 L (22-30) mmol/L Anion Gap 11 (10-20) BUN 6 L (9-20) mg/dL Creatinine 0.6 L (0.8-1.5) mg/dL Est GFR ( Amer) > 60 Est GFR (Non-Af Amer) > 60 Random Glucose 166 H (75-110) mg/dL Calcium 8.4 L (8.6-10.4) mg/dl Phosphorus 2.2 L (2.5-4.5) mg/dL Magnesium 1.6 (1.6-2.3) mg/dL Total Bilirubin 0.6 (0.2-1.3) mg/dL AST 24 (17-59) U/L ALT 36 (21-72) U/L Alkaline Phosphatase 59 (38-126) U/L Total Protein 5.3 L (6.3-8.3) g/dL Albumin 2.6 L (3.5-5.0) g/dL Globulin 2.7 (2.2-3.9) gm/dL Albumin/Globulin Ratio 0.9 L (1.0-2.1) Stool Occult Blood (NEGATIVE) Vancomycin Trough 18.9 H (5.0-10.0) ug/mL 06/16/18 Range/Units 07:27 WBC (4.8-10.8) K/uL RBC (4.40-5.90) Mil/uL Hgb (12.0-18.0) g/dL Hct (35.0-51.0) % MCV (80.0-94.0) fL MCH (27.0-31.0) pg MCHC (33.0-37.0) g/dL RDW (11.5-14.5) % Plt Count (130-400) K/uL MPV (7.2-11.7) fL Neut % (Auto) (50.0-75.0) % Lymph % (Auto) (20.0-40.0) % Valley % (Auto) (0.0-10.0) % Eos % (Auto) (0.0-4.0) % Baso % (Auto) (0.0-2.0) % Neut # (Auto) (1.8-7.0) K/uL Lymph # (Auto) (1.0-4.3) K/uL Valley # (Auto) (0.0-0.8) K/uL Eos # (Auto) (0.0-0.7) K/uL Baso # (Auto) (0.0-0.2) K/uL Neutrophils % (Manual) (50-75) % Band Neutrophils % (0-2) % Lymphocytes % (Manual) (20-40) % Monocytes % (Manual) (0-10) % Platelet Estimate (NORMAL) Polychromasia Hypochromasia (manual) Anisocytosis (manual) Microcytosis (manual) Tear Drop Cells Ovalocytes Schistocytes Puncture Site pCO2 (35-45) mm/Hg pO2 (80-100) mm/Hg HCO3 (21-28) mmol/L ABG pH (7.35-7.45) ABG Total CO2 (22-28) mmol/L ABG O2 Saturation (95-98) % ABG Base Excess (-2.0-3.0) mmol/L ABG Hemoglobin (11.7-17.4) g/dL ABG Carboxyhemoglobin (0.5-1.5) % POC ABG HHb (Measured) (0.0-5.0) % ABG Methemoglobin (0.0-3.0) % Bob Test A-a O2 Difference mm/Hg Respiratory Index Hgb O2 Saturation (95.0-98.0) % Vent Mode Mechanical Rate FiO2 % Tidal Volume PEEP Pressure Support Sodium (132-148) mmol/L Potassium (3.6-5.2) mmol/L Chloride (98-107) mmol/L Carbon Dioxide (22-30) mmol/L Anion Gap (10-20) BUN (9-20) mg/dL Creatinine (0.8-1.5) mg/dL Est GFR ( Amer) Est GFR (Non-Af Amer) Random Glucose (75-110) mg/dL Calcium (8.6-10.4) mg/dl Phosphorus (2.5-4.5) mg/dL Magnesium (1.6-2.3) mg/dL Total Bilirubin (0.2-1.3) mg/dL AST (17-59) U/L ALT (21-72) U/L Alkaline Phosphatase (38-126) U/L Total Protein (6.3-8.3) g/dL Albumin (3.5-5.0) g/dL Globulin (2.2-3.9) gm/dL Albumin/Globulin Ratio (1.0-2.1) Stool Occult Blood Positive H (NEGATIVE) Vancomycin Trough (5.0-10.0) ug/mL Laboratory Results - last 24 hr 06/16/18 06/16/18 06/16/18 07:27 18:07 18:07 WBC 7.1 RBC 3.13 L Hgb 9.4 L D Hct 27.5 L MCV 87.7 D MCH 30.1 MCHC 34.4 RDW 20.9 H Plt Count 186 MPV 7.3 Neut % (Auto) 88.6 H Lymph % (Auto) 4.9 L Valley % (Auto) 6.2 Eos % (Auto) 0.0 Baso % (Auto) 0.3 Neut # (Auto) 6.3 Lymph # (Auto) 0.3 L Valley # (Auto) 0.4 Eos # (Auto) 0.0 Baso # (Auto) 0.0 Neutrophils % (Manual) 84 H Band Neutrophils % 7 H Lymphocytes % (Manual) 3 L Monocytes % (Manual) 6 Platelet Estimate Normal Polychromasia Slight Hypochromasia (manual) Slight Anisocytosis (manual) Microcytosis (manual) Slight Tear Drop Cells Ovalocytes Schistocytes Slight Puncture Site pCO2 pO2 HCO3 ABG pH ABG Total CO2 ABG O2 Saturation ABG Base Excess ABG Hemoglobin ABG Carboxyhemoglobin POC ABG HHb (Measured) ABG Methemoglobin Bob Test A-a O2 Difference Respiratory Index Hgb O2 Saturation Vent Mode Mechanical Rate FiO2 Tidal Volume PEEP Pressure Support Sodium 141 Potassium 3.5 L Chloride 113 H Carbon Dioxide 20 L Anion Gap 11 BUN 6 L Creatinine 0.6 L Est GFR ( Amer) > 60 Est GFR (Non-Af Amer) > 60 Random Glucose 166 H Calcium 8.4 L Phosphorus 2.2 L Magnesium 1.6 Total Bilirubin 0.6 AST 24 ALT 36 Alkaline Phosphatase 59 Total Protein 5.3 L Albumin 2.6 L Globulin 2.7 Albumin/Globulin Ratio 0.9 L Stool Occult Blood Positive H Vancomycin Trough 06/16/18 06/17/18 06/17/18 21:23 03:46 03:46 WBC 6.5 RBC 3.12 L Hgb 9.4 L Hct 27.1 L MCV 86.8 MCH 30.2 MCHC 34.8 RDW 21.1 H Plt Count 172 MPV 7.0 L Neut % (Auto) 84.2 H Lymph % (Auto) 7.3 L Valley % (Auto) 7.5 Eos % (Auto) 0.0 Baso % (Auto) 1.0 Neut # (Auto) 5.4 Lymph # (Auto) 0.5 L Valley # (Auto) 0.5 Eos # (Auto) 0.0 Baso # (Auto) 0.1 Neutrophils % (Manual) 85 H Band Neutrophils % 1 Lymphocytes % (Manual) 7 L Monocytes % (Manual) 7 Platelet Estimate Normal Polychromasia Moderate Hypochromasia (manual) Anisocytosis (manual) Moderate Microcytosis (manual) Slight Tear Drop Cells Slight Ovalocytes Slight Schistocytes Puncture Site pCO2 pO2 HCO3 ABG pH ABG Total CO2 ABG O2 Saturation ABG Base Excess ABG Hemoglobin ABG Carboxyhemoglobin POC ABG HHb (Measured) ABG Methemoglobin Bob Test A-a O2 Difference Respiratory Index Hgb O2 Saturation Vent Mode Mechanical Rate FiO2 Tidal Volume PEEP Pressure Support Sodium 143 Potassium 3.1 L Chloride 111 H Carbon Dioxide 22 Anion Gap 13 BUN 6 L Creatinine 0.5 L Est GFR ( Amer) > 60 Est GFR (Non-Af Amer) > 60 Random Glucose 169 H Calcium 8.3 L Phosphorus 1.9 L Magnesium 1.5 L Total Bilirubin 0.4 AST 34 ALT 39 Alkaline Phosphatase 58 Total Protein 5.4 L Albumin 2.6 L Globulin 2.8 Albumin/Globulin Ratio 0.9 L Stool Occult Blood Vancomycin Trough 18.9 H 06/17/18 06/17/18 06/17/18 03:46 05:11 14:36 WBC RBC Hgb Hct MCV MCH MCHC RDW Plt Count MPV Neut % (Auto) Lymph % (Auto) Valley % (Auto) Eos % (Auto) Baso % (Auto) Neut # (Auto) Lymph # (Auto) Valley # (Auto) Eos # (Auto) Baso # (Auto) Neutrophils % (Manual) Band Neutrophils % Lymphocytes % (Manual) Monocytes % (Manual) Platelet Estimate Polychromasia Hypochromasia (manual) Anisocytosis (manual) Microcytosis (manual) Tear Drop Cells Ovalocytes Schistocytes Puncture Site Rb Lra pCO2 31 L 22 L pO2 144 H 144 H HCO3 23.9 25.7 ABG pH 7.46 H 7.60 H ABG Total CO2 23.0 22.3 ABG O2 Saturation 99.2 H 99.5 H ABG Base Excess -1.3 0.9 ABG Hemoglobin 9.3 L 9.6 L ABG Carboxyhemoglobin 1.3 1.6 H POC ABG HHb (Measured) 0.8 0.5 ABG Methemoglobin 1.3 0.6 Bob Test Na Pos A-a O2 Difference 102.0 42.0 Respiratory Index 0.7 0.3 Hgb O2 Saturation 96.5 97.3 Vent Mode Prvc Cpap Mechanical Rate 16 FiO2 40.0 30.0 Tidal Volume 420 PEEP 9 5 Pressure Support 10 Sodium Potassium Chloride Carbon Dioxide Anion Gap BUN Creatinine Est GFR ( Amer) Est GFR (Non-Af Amer) Random Glucose Calcium Phosphorus Magnesium Total Bilirubin AST ALT Alkaline Phosphatase Total Protein Albumin Globulin Albumin/Globulin Ratio Stool Occult Blood Vancomycin Trough 13.5 H 06/17/18 14:51 WBC RBC Hgb Hct MCV MCH MCHC RDW Plt Count MPV Neut % (Auto) Lymph % (Auto) Valley % (Auto) Eos % (Auto) Baso % (Auto) Neut # (Auto) Lymph # (Auto) Valley # (Auto) Eos # (Auto) Baso # (Auto) Neutrophils % (Manual) Band Neutrophils % Lymphocytes % (Manual) Monocytes % (Manual) Platelet Estimate Polychromasia Hypochromasia (manual) Anisocytosis (manual) Microcytosis (manual) Tear Drop Cells Ovalocytes Schistocytes Puncture Site pCO2 pO2 HCO3 ABG pH ABG Total CO2 ABG O2 Saturation ABG Base Excess ABG Hemoglobin ABG Carboxyhemoglobin POC ABG HHb (Measured) ABG Methemoglobin Bob Test A-a O2 Difference Respiratory Index Hgb O2 Saturation Vent Mode Mechanical Rate FiO2 Tidal Volume PEEP Pressure Support Sodium Potassium Chloride Carbon Dioxide Anion Gap BUN Creatinine Est GFR ( Amer) Est GFR (Non-Af Amer) Random Glucose Calcium Phosphorus Magnesium Total Bilirubin AST ALT Alkaline Phosphatase Total Protein Albumin Globulin Albumin/Globulin Ratio Stool Occult Blood Vancomycin Trough 17.6 H Assessment/Plan - Assessment and Plan (Free Text) Assessment: Above patient seen and examined at bedside. PAtietn has h/o agitation and being sedated and then being intubated. PAtietn toelrated CPAP at 30% Fio2 -will provide librium as long acting benzo + precedex -d/c profpofol -will extubate patent Vt max 965 ml and RSBI 30 -continue bronchodilators -contineu dvt/pud ppx cc time spent including time spent to evalute for extubatino 45 minutes
[2018-06-17] MEDS: Magnesium Sulfate 1 gm in D5W 1 GM/100 ML BAG IVPB SCH ×2 (11:27→12:29)
[2018-06-17] MEDS: Sucralfate 1 gm/10 ml Oral Susp UD PO SCH ×4 (11:31→21:40)
[2018-06-17] MEDS: Potassium Chloride 20 mEq/15 ml LIQ UD PO SCH ×3 (11:32→21:40)
[2018-06-17] MEDS: Folic Acid 1 MG in Sodium Chloride 0.9% 50 ML IV SCH (11:50)
[2018-06-17] MEDS: Dexmedetomidine Hydrochloride 200 MCG in Sodium Chloride 0.9% 48 ML IV PRN ×2 (11:51→20:03)
[2018-06-17 14:50] LABS: ABG ALLEN TEST POS; ARTERIAL BLOOD GAS HCO3 25.7 mmol/L (21-28); ARTERIAL BLOOD GAS HEMOGLOBIN 9.6 g/dL (11.7-17.4); ARTERIAL BLOOD GAS O2 SAT 99.5 % (95-98); ARTERIAL BLOOD GAS PCO2 22 mm/Hg (35-45); ARTERIAL BLOOD GAS PO2 144 mm/Hg (80-100); ARTERIAL BLOOD GAS TCO2 22.3 mmol/L (22-28)
[2018-06-17 16:04] LABS: ABG ALLEN TEST A; ARTERIAL BLOOD GAS HCO3 24.7 mmol/L (21-28); ARTERIAL BLOOD GAS O2 SAT 99.3 % (95-98); ARTERIAL BLOOD GAS PCO2 32 mm/Hg (35-45); ARTERIAL BLOOD GAS PH 7.46 (7.35-7.45); ARTERIAL BLOOD GAS PO2 124 mm/Hg (80-100); ARTERIAL BLOOD GAS TCO2 23.8 mmol/L (22-28)
--- NOTE | 2018-06-17 17:28 | CP.PCM.PN ---
Subjective - Date & Time of Evaluation Date of Evaluation: 06/17/18 Time of Evaluation: 17:15 - Subjective Subjective: Hospitalist Progress Note Patient was seen and examined at 5:15 PM 06/17/18 ICU Bed 15 Patient was successfully extubated today However, very agitated after extubation trying to pull at his lines therefore Precedex has been continued and he has been started on Librium. Soft restraints were required but patient seemed to calm down. He still has bilateral mittens on. He received 2 units of PRBC 06/16/18 and his HgB/Hct 9.7/24.1 and his vitals are stable. He had 2 large bowel movements that were soft Electrolytes are being repleted See Assessment and Plans below for further details General: Patient is arousable but does not follow commands HEENT: NCA, Pupils are round and reactive to light sluggishly, NO lymphadenopathy, NO thyromegaly Cardio: heart sounds are very faint however this exam is limited (NS1 and NS2, NO M/R/G) Respiratory: Course breath sounds diffusely GI: BSx4, Soft, NO HSM, NO guarding/rebound tenderness, ND Ext: Radial pulses are strong and equal, Pedal pulses are weak, NO edema, Capillary Refill is 3 seconds, Bilateral lower legs with multiple round dry eschars Skin: Stage II Sacral Ulcer 1). Cardiopulmonary Arrest Assessment/Plan * Cardiology Dr. Iglesias pony trimmer-->help appreciated * PEA s/p ROSC NSR * Echocardiogram (06/12/18): ejection fraction: 45-50%, left ventricular diastolic function is abnormal. left atrium size looks normal right atrium size looks normal. trace to mild tricupsid regurgitaton * Solumedrol 40 mg IV Q6H 2). Hyponatremia Assessment/Plan * Nephrology Dr. Shafer on board-->help appreciated * Secondary to Alcohol Abuse * Received 3 NS boluses in ER * Seizure precautions * Normalized 3). Hypokalemia/Hypomagnesemia/Hypophosphotemia Assessment/Plan * Replete as needed 4). Metabolic Acidosis Assessment/Plan * Likely secondary to the Cadriopulmonary Arrest, GI bleed, Respiratory Distress * Improving 5). Seizure Assessment/Plan * Neurology Dr. Richie Rubi on board-->help appreciated * Risk factor: heavy alcohol use and hyponatremia, hypomagnesium * Head CT (06/11/18): no acute intracranial abnormality. Chronic microvascular ischemic changes. sinus mucosal disease as above * He has a history of alcohol withdrawal seizures * Keppra 500 mg IV Q12H * Recommend EEG if mental status does not improve after extubation 6). Anemia likely secondary to GI Bleed History of Peptic Ulcer Disease Bleeding Ulcer Assessment/Plan * GI Dr. Ho on consult help appreciated * CT Chest/abdomen/pelvis (06/12/18): distended bowel suggesting an ileus. Markedly limited evaluation of the bowel without oral or intravenous contrast. Suggestion of prior Bilroth 2 procedure. Fluid filled dilatation of small bowel andproximal colon. Fluid filled dilatation of the small bowel and prozimal colon. Fluid in the descending colon without a sharp transition sozne. Portions of transverse colon were not well visualized. * Monitor H/H and transfuse as needed * Carafate 1g qid * S/P EGD POD2: 2 anastomotic ulcers with visible vessel s/p APC and 5 clips, one ulcer with visible vessel and adherent clot was not intervened on due to adverse location--->If pt develops further bleeding will need IR and Surgery on board, difficult to treat endoscopically * Monitor H/H: received 2 units on 06/16/18 * No NSAIDS and strong history of alcohol abuse 7). Hypocalcemia Assessment/Plan * Monitor 8). Acute Respiratory Failure Assessment/Plan * Extubated 06/12/18 and Re-intubated on 06/14/18 and extubated 06/17/18 * Management per ICU * Noted rib fractures * Patient is on Zosyn and Vancomycin to cover for bilateral pneumonia * Solumedrol 40 mg IV Q6H 9) Open Wounds on Sacrum Assessment/Plan * Turn [id number] * MediHoney with Optifoam Dressing 10) Bilateral Anterior Rib and Sternal Fractures Assessment/Plan * Noted on CT Chest * Secondary to CPR given cardiopulmonary arrest 11) Pneumonia Assessment/Plan * CT Chest 06/11/18: thinned walled cavity in the right upper lobe which may be the sequelae of prior infection 5mm subpleural nodule within the anterior right middle lobe. Focal consolidation within the inferior right middle lobe. Focal consolidation within the right lower lobe. Patchy ground glass opacities in both lungs which and nonspecific but may secondary to alectasis versus contusion versus pneumonitis. * Zosyn 3.375g IV Q8H (active since 06/11/18) and Vancomycin 1 gm IV Q12H ( active since 06/14/18) * Vancomycin trough is within range of 15 to 20 * Tracheal Aspirate 06/16/18 preliminary is negative * 12) Urinary tract infection * Zosyn 3.375g IV Q8H (active since 06/11/18) * Repeat urine culture 06/13/18 showed NO growth 13) Bacteremia * Repeat blood culture 06/12/18 is negative to date 14) Alcoholism * Hx heavy use * On Precedex * Librium 25 mg PO Q8H 15) Prophylactic measure * Protonix 40 mg IV Q12H * Chemical anticoagulation held secondary to GI bleed * Turn [id number] * Aspiration precautions * Seizure precautions * Wound care on board Prem Noland D.O. Objective - Vital Signs/Intake and Output Vital Signs (last 24 hours): Temp Pulse Resp BP Pulse Ox 98.9 F 81 16 150/85 100 06/17/18 12:00 06/17/18 15:00 06/17/18 15:00 06/17/18 14:42 06/17/18 15:00 Intake and Output: 06/17/18 06/17/18 06:59 18:59 Intake Total 2768 1345.8 Output Total 878 650 Balance 1890 695.8 - Medications Medications: Current Medications Albuterol/Ipratropium (Duoneb 3 Mg/0.5 Mg (3 Ml) Ud) 3 ml INH RQ4 MAYANK Last Admin: 06/17/18 16:24 Dose: 3 ml Chlordiazepoxide (Librium) 25 mg PO Q8 MAYANK Last Admin: 06/17/18 17:24 Dose: 25 mg Levetiracetam 500 mg/ Dextrose 105 mls @ 420 mls/hr IVPB Q12H MAYANK Last Admin: 06/17/18 07:43 Dose: 420 mls/hr Piperacillin Sod/Tazobactam Sod (Zosyn 3.375 Gm Iv Premix) 3.375 gm in 50 mls @ 100 mls/hr IVPB Q6H [facility] PRN Reason: Protocol Last Admin: 06/17/18 17:20 Dose: 100 mls/hr Folic Acid 1 mg/ Sodium (Chloride) 50.2 mls @ 100.4 mls/hr IV DAILY MAYANK Last Admin: 06/17/18 11:50 Dose: 100.4 mls/hr Vancomycin/Sodium Chloride (Vancomycin 1 Gm/Ns 200 Ml) 1 gm in 200 mls @ 166.7 mls/hr IVPB Q18H MAYANK PRN Reason: Protocol Stop: 06/22/18 04:01 Last Admin: 06/17/18 04:13 Dose: 166.7 mls/hr Dexmedetomidine HCl 200 mcg/ (Sodium Chloride) 50 mls @ 2.58 mls/hr IV TITR PRN ; Protocol; 0.2 MCG/KG/HR PRN Reason: Agitation Last Titration: 06/17/18 13:50 Dose: 0.3 mcg/kg/hr, 3.87 mls/hr Methylprednisolone (Solu-Medrol) 40 mg IV Q6H MAYANK Last Admin: 06/17/18 14:57 Dose: 40 mg Pantoprazole Sodium (Protonix Inj) 40 mg IVP Q12 MAYANK Last Admin: 06/17/18 11:25 Dose: 40 mg Potassium Chloride (Potassium Chloride Oral Soln) 40 meq PO Q6H MAYANK Stop: 06/18/18 04:31 Last Admin: 06/17/18 17:19 Dose: 40 meq Sucralfate (Carafate Oral Susp) 1 gm PO QID MAYANK Last Admin: 06/17/18 17:20 Dose: 1 gm - Labs Labs: 06/17/18 03:46 06/17/18 03:46 PT 16.0 SECONDS (9.7-12.2) H 06/13/18 06:20 INR 1.5 06/13/18 06:20 APTT 40 SECONDS (21-34) H 06/10/18 23:37
[2018-06-17 19:27] LABS: ARTERIAL BLOOD GAS HCO3 24.7 mmol/L (21-28); ARTERIAL BLOOD GAS O2 SAT 95.3 % (95-98); ARTERIAL BLOOD GAS PCO2 29 mm/Hg (35-45); ARTERIAL BLOOD GAS PH 7.49 (7.35-7.45); ARTERIAL BLOOD GAS PO2 63 mm/Hg (80-100)
[2018-06-18] MEDS: Albuterol-Ipratrop 3 mg / 0.5 (3 ml) UD INH SCH ×7 (00:33→23:51)
[2018-06-18] MEDS: MethylPREDNISolone 40 mg Vial IV SCH ×4 (03:03→20:28)
[2018-06-18] MEDS: Potassium Chloride 20 mEq/15 ml LIQ UD PO SCH (03:32)
[2018-06-18] MEDS: Piperacill/Tazo 3.375gm in Dex 3.375 GM/50 ML BAG IVPB SCH ×4 (04:19→22:09)
[2018-06-18 06:23] LABS: HEMOGLOBIN 10.5 g/dL (12.0-18.0); LYMPH # 0.3 K/uL (1.0-4.3); LYMPH % 3.3 % (20.0-40.0); MEAN CELL VOLUME 87.9 fL (80.0-94.0); MEAN CORPUSCULAR HEMOGLOBIN 30.1 pg (27.0-31.0); MEAN CORPUSCULAR HGB CONC 34.3 g/dL (33.0-37.0); MEAN PLATELET VOLUME 7.4 fL (7.2-11.7); MONO # 0.4 K/uL (0.0-0.8); NEUT # 8.9 K/uL (1.8-7.0); NEUT % 92.7 % (50.0-75.0); NRBC % 0.1 % (0.0-2.0); PLATELET COUNT 212 K/uL (130-400); RBC 3.49 Mil/uL (4.40-5.90); RED CELL DISTRIBUTION WIDTH 20.5 % (11.5-14.5); WHITE BLOOD COUNT 9.6 K/uL (4.8-10.8)
[2018-06-18 06:32] LABS: ALBUMIN 2.9 g/dL (3.5-5.0); ALT/SGPT 37 U/L (21-72); AST/SGOT 24 U/L (17-59); BLOOD UREA NITROGEN 7 mg/dL (9-20); CALCIUM 8.8 mg/dl (8.6-10.4); GFR NON-AFRICAN AMERICAN > 60
[2018-06-18 08:13] LABS: ANISOCYTOSIS SLIGHT; BANDS 1 % (0-2); LYMPHOCYTE 3 % (20-40); MONOCYTE 4 % (0-10); NEUTROPHIL 92 % (50-75); PLATELET ESTIMATE NORMAL (NORMAL); TOTAL CELLS COUNTED 100
[2018-06-18 08:14] LABS: HYPOCHROMIC SLIGHT; POLYCHROMIC SLIGHT
--- NOTE | 2018-06-18 08:54 | RAD ---
Date of service: 06/18/2018 HISTORY: pneumonia COMPARISON: Portable chest 06/17/2018. FINDINGS: LUNGS: Patient appears to have been extubated. Left central venous line and nasogastric tube appear unchanged in position. Limited left basilar airspace disease not significantly changed. Overall inspiratory volume is diminished. Bronchovascular markings appears somewhat accentuated bilaterally and this may be a function of diminished inspiratory volume. Patchy airspace disease seen the mid right lung zone as well as medial inferior right base. PLEURA: No significant pleural effusion identified, no pneumothorax apparent. CARDIOVASCULAR: Normal. OSSEOUS STRUCTURES: No significant abnormalities. VISUALIZED UPPER ABDOMEN: Elevated left hemidiaphragm reiterated. OTHER FINDINGS: Lengthy left humeral ORIF identified. IMPRESSION: Patient apparently extubated. Clinically correlate. Left basilar airspace not significantly changed with borderline patchy airspace disease identified at the mid and inferior right lung zones. No interval pleural effusion or pulmonary vascular congestion.
[2018-06-18] MEDS: Dexmedetomidine Hydrochloride 200 MCG in Sodium Chloride 0.9% 48 ML IV PRN ×2 (09:31→21:13)
[2018-06-18] MEDS: Sucralfate 1 gm/10 ml Oral Susp UD PO SCH ×4 (10:59→21:12)
[2018-06-18] MEDS: Multiple Vitamins Oral Solution PO SCH (11:03)
--- NOTE | 2018-06-18 11:55 | CP.PCM.PN ---
Subjective - Date & Time of Evaluation Date of Evaluation: 06/18/18 Time of Evaluation: 11:30 - Subjective Subjective: Hospitalist Progress Note Patient was seen and examined at 11:30 AM 06/18/18 ICU Bed 15 Patient was successfully extubated 06/17/18 Still very agitated and pulled out NGT this morning. He still on precedex and still has bilateral mittens on. He received 2 units of PRBC 06/16/18 and his HgB/Hct has improved Tracheal Aspirate from 06/16/18 grew Yeast: Fluconazole 100 mg IV 1x/day has been started He has not had a bowel movement this morning See Assessment and Plans below for further details General: Patient is awake and thanked me. When informing him that someone will help him with his pureed meal, he stated that he would like to have it to go when he leaves today HEENT: NCA, Pupils are round and reactive to light sluggishly, NO lymphadenopathy, NO thyromegaly Cardio: heart sounds are very faint however this exam is limited (NS1 and NS2, NO M/R/G) Respiratory: Course breath sounds diffusely GI: BSx4, Soft, NO HSM, NO guarding/rebound tenderness, ND Ext: Radial pulses are strong and equal, Pedal pulses are weak, NO edema, Capillary Refill is 3 seconds, Bilateral lower legs with multiple round dry eschars Skin: Stage II Sacral Ulcer 1). 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 left atrium size looks normal right atrium size looks normal. trace to mild tricupsid regurgitaton * Solumedrol 40 mg IV Q6H 2). Hyponatremia Assessment/Plan * Nephrology Dr. Shafer on board-->help appreciated * Secondary to Alcohol Abuse * Received 3 NS boluses in ER * Seizure precautions * Normalized 3). Hypokalemia/Hypomagnesemia/Hypophosphotemia Assessment/Plan * Replete as needed 4). Metabolic Acidosis Assessment/Plan * Likely secondary to the Cadriopulmonary Arrest, GI bleed, Respiratory Distress * Improving 5). Seizure Assessment/Plan * Neurology Dr. Richie Rubi on board-->help appreciated * Risk factor: heavy alcohol use and hyponatremia, hypomagnesium * Head CT (06/11/18): no acute intracranial abnormality. Chronic microvascular ischemic changes. sinus mucosal disease as above * He has a history of alcohol withdrawal seizures * Keppra 500 mg IV Q12H * Recommend EEG if mental status does not improve after extubation 6). Anemia likely secondary to GI Bleed History of Peptic Ulcer Disease Bleeding Ulcer Assessment/Plan * GI Dr. Ho on consult help appreciated * CT Chest/abdomen/pelvis (06/12/18): distended bowel suggesting an ileus. Markedly limited evaluation of the bowel without oral or intravenous contrast. Suggestion of prior Bilroth 2 procedure. Fluid filled dilatation of small bowel andproximal colon. Fluid filled dilatation of the small bowel and prozimal colon. Fluid in the descending colon without a sharp transition sozne. Portions of transverse colon were not well visualized. * Monitor H/H and transfuse as needed * Carafate 1g qid * S/P EGD POD2: 2 anastomotic ulcers with visible vessel s/p APC and 5 clips, one ulcer with visible vessel and adherent clot was not intervened on due to adverse location--->If pt develops further bleeding will need IR and Surgery on board, difficult to treat endoscopically * Monitor H/H: received 2 units on 06/16/18 * No NSAIDS and strong history of alcohol abuse 7). Hypocalcemia Assessment/Plan * Monitor 8). Acute Respiratory Failure Assessment/Plan * Extubated 06/12/18 and Re-intubated on 06/14/18 and extubated 06/17/18 * Management per ICU * Noted rib fractures * Patient is on Zosyn and Vancomycin to cover for bilateral pneumonia * Solumedrol 40 mg IV Q6H 9) Open Wounds on Sacrum Assessment/Plan * Turn [id number] * MediHoney with Optifoam Dressing 10) Bilateral Anterior Rib and Sternal Fractures Assessment/Plan * Noted on CT Chest * Secondary to CPR given cardiopulmonary arrest 11) Pneumonia Assessment/Plan * CT Chest 06/11/18: thinned walled cavity in the right upper lobe which may be the sequelae of prior infection 5mm subpleural nodule within the anterior right middle lobe. Focal consolidation within the inferior right middle lobe. Focal consolidation within the right lower lobe. Patchy ground glass opacities in both lungs which and nonspecific but may secondary to alectasis versus contusion versus pneumonitis. * Zosyn 3.375g IV Q8H (active since 06/11/18) and Vancomycin 1 gm IV Q12H ( active since 06/14/18) * Vancomycin trough is within range of 15 to 20 * Tracheal Aspirate 06/16/18 shows Yeast Species and Fluconazole 100 mg IV 1x/ day has been ordered through 07/02/18 * 12) Urinary tract infection * Zosyn 3.375g IV Q8H (active since 06/11/18) * Repeat urine culture 06/13/18 showed NO growth 13) Bacteremia * Repeat blood culture 06/12/18 is negative to date 14) Alcoholism * Hx heavy use * On Precedex * Librium 25 mg PO Q8H * MVI PO 1x/day 15) Prophylactic measure * Protonix 40 mg IV Q12H * Lactobacillus 1 cap PO 2x/day * Chemical anticoagulation held secondary to GI bleed * Turn [id number] * Pureed Diet for now * Aspiration precautions * Seizure precautions * Wound care on board Prem Noland D.O. Objective - Vital Signs/Intake and Output Vital Signs (last 24 hours): Temp Pulse Resp BP Pulse Ox 98.3 F 78 15 161/81 H 99 06/18/18 08:00 06/18/18 10:00 06/18/18 10:00 06/18/18 09:42 06/18/18 10:00 Intake and Output: 06/18/18 06/18/18 06:59 18:59 Intake Total 584.4 54.62 Output Total 100 Balance 484.4 54.62 - Medications Medications: Current Medications Albuterol/Ipratropium (Duoneb 3 Mg/0.5 Mg (3 Ml) Ud) 3 ml INH RQ4 MAYANK Last Admin: 06/18/18 07:10 Dose: 3 ml Chlordiazepoxide (Librium) 25 mg PO Q8H MAYANK Last Admin: 06/18/18 10:59 Dose: 25 mg Folic Acid (Folic Acid) 1 mg PO DAILY MAYANK Last Admin: 06/18/18 10:59 Dose: 1 mg Levetiracetam 500 mg/ Dextrose 105 mls @ 420 mls/hr IVPB Q12H MAYANK Last Admin: 06/18/18 07:00 Dose: 420 mls/hr Piperacillin Sod/Tazobactam Sod (Zosyn 3.375 Gm Iv Premix) 3.375 gm in 50 mls @ 100 mls/hr IVPB Q6H MAYANK PRN Reason: Protocol Last Admin: 06/18/18 10:42 Dose: 100 mls/hr Folic Acid 1 mg/ Sodium (Chloride) 50.2 mls @ 100.4 mls/hr IV DAILY MAYANK Last Admin: 06/17/18 11:50 Dose: 100.4 mls/hr Dexmedetomidine HCl 200 mcg/ (Sodium Chloride) 50 mls @ 2.58 mls/hr IV TITR PRN ; Protocol; 0.2 MCG/KG/HR PRN Reason: Agitation Last Admin: 06/18/18 09:31 Dose: 0.4 mcg/kg/hr, 5.17 mls/hr Methylprednisolone (Solu-Medrol) 40 mg IV Q6H MAYANK Last Admin: 06/18/18 08:07 Dose: 40 mg Multivitamins/Vitamin C (Multi-Delyn Liquid) 5 ml PO DAILY MAYANK Last Admin: 06/18/18 11:03 Dose: 5 ml Pantoprazole Sodium (Protonix Inj) 40 mg IVP Q12 [facility]ANK Last Admin: 06/18/18 09:30 Dose: 40 mg Sucralfate (Carafate Oral Susp) 1 gm PO QID MAYANK Last Admin: 06/18/18 10:59 Dose: 1 gm Thiamine HCl (Vitamin B1 Tab) 100 mg PO BID MAYANK Last Admin: 06/18/18 10:59 Dose: 100 mg - Labs Labs: 06/18/18 06:11 06/18/18 06:11 PT 16.0 SECONDS (9.7-12.2) H 06/13/18 06:20 INR 1.5 06/13/18 06:20 APTT 40 SECONDS (21-34) H 06/10/18 23:37
--- NOTE | 2018-06-18 13:07 | CP.PCM.PN ---
Subjective - Date & Time of Evaluation Date of Evaluation: 06/18/18 Time of Evaluation: 13:04 - Subjective Subjective: Patient had no acute events overnight Objective - Vital Signs/Intake and Output Vital Signs (last 24 hours): Temp Pulse Resp BP Pulse Ox 98.3 F 78 15 161/81 H 99 06/18/18 08:00 06/18/18 10:00 06/18/18 10:00 06/18/18 09:42 06/18/18 10:00 Intake and Output: 06/18/18 06/18/18 06:59 18:59 Intake Total 584.4 54.62 Output Total 100 Balance 484.4 54.62 - Medications Medications: Current Medications Albuterol/Ipratropium (Duoneb 3 Mg/0.5 Mg (3 Ml) Ud) 3 ml INH RQ4 MAYANK Last Admin: 06/18/18 07:10 Dose: 3 ml Chlordiazepoxide (Librium) 25 mg PO Q8H [facility]ANK Last Admin: 06/18/18 10:59 Dose: 25 mg Folic Acid (Folic Acid) 1 mg PO DAILY MAYANK Last Admin: 06/18/18 10:59 Dose: 1 mg Levetiracetam 500 mg/ Dextrose 105 mls @ 420 mls/hr IVPB Q12H [facility]ANK Last Admin: 06/18/18 07:00 Dose: 420 mls/hr Piperacillin Sod/Tazobactam Sod (Zosyn 3.375 Gm Iv Premix) 3.375 gm in 50 mls @ 100 mls/hr IVPB Q6H MAYANK PRN Reason: Protocol Last Admin: 06/18/18 10:42 Dose: 100 mls/hr Folic Acid 1 mg/ Sodium (Chloride) 50.2 mls @ 100.4 mls/hr IV DAILY MAYANK Last Admin: 06/17/18 11:50 Dose: 100.4 mls/hr Dexmedetomidine HCl 200 mcg/ (Sodium Chloride) 50 mls @ 2.58 mls/hr IV TITR PRN ; Protocol; 0.2 MCG/KG/HR PRN Reason: Agitation Last Admin: 06/18/18 09:31 Dose: 0.4 mcg/kg/hr, 5.17 mls/hr Vancomycin HCl 1 gm/ Sodium (Chloride) 200 mls @ 133.333 mls/hr IVPB Q12H MAYANK PRN Reason: Protocol Fluconazole 100 mg/ (Miscellaneous) 50 mls @ 100 mls/hr IVPB DAILY MAYANK PRN Reason: Protocol Stop: 07/02/18 14:01 Methylprednisolone (Solu-Medrol) 40 mg IV Q6H [facility] Last Admin: 06/18/18 08:07 Dose: 40 mg Multivitamins/Vitamin C (Multi-Delyn Liquid) 5 ml PO DAILY [facility] Last Admin: 06/18/18 11:03 Dose: 5 ml Pantoprazole Sodium (Protonix Inj) 40 mg IVP Q12 [facility] Last Admin: 06/18/18 09:30 Dose: 40 mg Sucralfate (Carafate Oral Susp) 1 gm PO QID [facility] Last Admin: 06/18/18 10:59 Dose: 1 gm Thiamine HCl (Vitamin B1 Tab) 100 mg PO BID [facility] Last Admin: 06/18/18 10:59 Dose: 100 mg - Labs Labs: 06/18/18 06:11 06/18/18 06:11 PT 16.0 SECONDS (9.7-12.2) H 06/13/18 06:20 INR 1.5 06/13/18 06:20 APTT 40 SECONDS (21-34) H 06/10/18 23:37 - Constitutional Appears: Non-toxic, No Acute Distress - Head Exam Head Exam: NORMAL INSPECTION, NORMOCEPHALIC - Eye Exam Pupil Exam: NORMAL ACCOMODATION - Respiratory Exam Respiratory Exam: Clear to Ausculation Bilateral, NORMAL BREATHING PATTERN - Cardiovascular Exam Cardiovascular Exam: REGULAR RHYTHM, +S1, +S2, +S4 - GI/Abdominal Exam GI & Abdominal Exam: Normal Bowel Sounds - Extremities Exam Extremities Exam: Full ROM - Back Exam Back Exam: NORMAL INSPECTION - Neurological Exam Neurological Exam: Alert, Awake Assessment and Plan - Assessment and Plan (Free Text) Assessment: This is a 52 year old male with PMHx of alcohol use disorder, seizure disorder, PUD, partial gastrectomy, COPD, hiatal hernia who came to [facility] ED on 06/10 for cardiac arrest. Pt suffered a seizure and was found in PEA by EMS and intubated in the field. In [facility] ED pt in PEA again, coded x2 with CPR. Started on levophed with rosc. Hgb was noted to be 7.7/7.4, and hyponatremia at 109 (nephro consulted). Pt was transfused 2 units of pRBCs. On 06/11, pt had EGD which showed multiple gastric ulcers that were clipped. On 06/12, pt was extubated and placed on BPAP. 06/14, pt was noted to be severely tachypneic on BPAP, and decision was made to intubate the pt due to impending respiratory failure. Pt was hypotensive and hypoxic after intubation. On 06/16, hgb noted to be 6.6. Pt was treated with 2 units of pRBCs, with adequate response. Pt extubated yesterday. -AMS: improved, less agitated, needs 1:1 -COPD: contineu bronchodilators, will benfitf rom incentive and pulmonary toilet -patient tolerated oral diet -continue skin care as per ICU protocol -continue DVT/PUD ppx -PT/OT -Patient at times is confused and agitated requiring precedex
[2018-06-18] MEDS: Fluconazole IV 200mg/100 ml NS 100 MG in Premixed IV 1 EA IVPB SCH (14:08)
[2018-06-18] MEDS: Folic Acid 1 MG in Sodium Chloride 0.9% 50 ML IV SCH (15:06)
[2018-06-18] MEDS: Vancomycin 1 GM in Sodium Chloride 0.9% 200 ML IVPB SCH (20:29)
[2018-06-19] MEDS: MethylPREDNISolone 40 mg Vial IV SCH ×4 (01:31→20:34)
[2018-06-19] MEDS: Piperacill/Tazo 3.375gm in Dex 3.375 GM/50 ML BAG IVPB SCH ×4 (04:33→22:42)
[2018-06-19] MEDS: Dexmedetomidine Hydrochloride 200 MCG in Sodium Chloride 0.9% 48 ML IV PRN ×3 (04:43→21:29)
[2018-06-19] MEDS: Albuterol-Ipratrop 3 mg / 0.5 (3 ml) UD INH SCH ×6 (05:01→23:32)
[2018-06-19 05:50] LABS: BASO % 0.2 % (0.0-2.0); HEMOGLOBIN 10.9 g/dL (12.0-18.0); LYMPH # 0.4 K/uL (1.0-4.3); LYMPH % 4.3 % (20.0-40.0); MEAN CELL VOLUME 88.1 fL (80.0-94.0); MEAN CORPUSCULAR HEMOGLOBIN 30.4 pg (27.0-31.0); MEAN CORPUSCULAR HGB CONC 34.5 g/dL (33.0-37.0); MEAN PLATELET VOLUME 7.6 fL (7.2-11.7); MONO # 0.3 K/uL (0.0-0.8); MONO % 3.6 % (0.0-10.0); NEUT # 8.4 K/uL (1.8-7.0); NEUT % 91.9 % (50.0-75.0); PLATELET COUNT 217 K/uL (130-400); RBC 3.58 Mil/uL (4.40-5.90); RED CELL DISTRIBUTION WIDTH 20.6 % (11.5-14.5); WHITE BLOOD COUNT 9.2 K/uL (4.8-10.8)
[2018-06-19 06:10] LABS: ALT/SGPT 33 U/L (21-72); AST/SGOT 15 U/L (17-59); BLOOD UREA NITROGEN 11 mg/dL (9-20); CALCIUM 8.5 mg/dl (8.6-10.4); GFR NON-AFRICAN AMERICAN > 60
[2018-06-19 08:23] LABS: ANISOCYTOSIS MODERATE; BANDS 1 % (0-2); LYMPHOCYTE 4 % (20-40); MONOCYTE 4 % (0-10); NEUTROPHIL 91 % (50-75); PLATELET ESTIMATE NORMAL (NORMAL); TOTAL CELLS COUNTED 100
[2018-06-19 08:24] LABS: HYPOCHROMIC SLIGHT; LARGE PLATELETS PRESENT
[2018-06-19 08:25] LABS: TOXIC GRANULATION PRESENT
[2018-06-19 08:30] LABS: POIKILOCYTOSIS SLIGHT; TEARDROP CELLS SLIGHT
[2018-06-19 08:31] LABS: OVALOCYTES SLIGHT
--- NOTE | 2018-06-19 09:02 | RAD ---
Date of service: 06/19/2018 HISTORY: pneumonia COMPARISON: Portable chest 06/18/2018. FINDINGS: LUNGS: Left central venous line unchanged in position. Nasogastric tube has been removed. Select PLEURA: Patchy airspace disease appears somewhat increased at the mid to inferior left lung zone is unchanged at the medial right base. CARDIOVASCULAR: Stable cardiomediastinal silhouette. No pulmonary vascular congestion. OSSEOUS STRUCTURES: No significant abnormalities. VISUALIZED UPPER ABDOMEN: Mild left hemidiaphragm elevation reiterated. OTHER FINDINGS: None. IMPRESSION: Mild increasingly basilar airspace disease as well as left infrahilar space with medial right basilar patchy density not significantly changed. Mid right lung zone patchy density resolved. Nasogastric tube now removed.
[2018-06-19] MEDS: Fluconazole IV 200mg/100 ml NS 100 MG in Premixed IV 1 EA IVPB SCH (09:25)
[2018-06-19] MEDS: Sucralfate 1 gm/10 ml Oral Susp UD PO SCH ×4 (09:26→21:03)
[2018-06-19] MEDS: Multiple Vitamins Oral Solution PO SCH (09:28)
[2018-06-19] MEDS: Vancomycin 1 GM in Sodium Chloride 0.9% 200 ML IVPB SCH ×2 (10:05→20:44)
--- NOTE | 2018-06-19 11:07 | CP.CCUPN ---
CCU Subjective - Physician Review Subjective (Free Text): 06/19/18 19:31 Patient was seen and examined at beside in the ICU. Remains off scheduled sedation, on PRN Precedex and MAYANK librium for agitation. Remains intermittently agitated, particularly regarding the hand mitts, which he wants cut off. No acute events overnight reported by nursing. Patient confused and focusing on mitts, not answering most questions or following most commands. CCU Objective - Vital Signs / Intake & Output Intake and Output (Last 8hrs): Intake & Output 06/18/18 06/19/18 06/19/18 22:59 06:59 14:59 Intake Total 658.2 312.4 Output Total 1200 1500 Balance -541.8 -1187.6 Weight 49.442 kg Intake: IV 31.8 50 Intake, IV Amount 386.4 262.4 LEFT IJ DISTAL PORT 36.4 62.4 LEFT IJ PROXIMAL PORT 350 200 Oral 240 Output: Urine 1200 1500 Condom 1200 1500 Other: # Bowel Movements 1 - Physical Exam Physical Exam Limitations: Positive for: Uncooperative Head: Positive for: Atraumatic, Normocephalic Pupils: Negative for: Non-Reactive, Pinpoint Extroacular Muscles: Positive for: EOMI (not following commands for EOMI, but able to track staff throughout room) Conjunctiva: Positive for: Normal. Negative for: Injected, Icteric Mouth: Positive for: Moist Mucous Membranes Nose (Internal): Positive for: No Active Bleeding. Negative for: Epistaxis Neck: Positive for: Normal Range of Motion, Trachea Midline. Negative for: JVD Respiratory/Chest: Positive for: Good Air Exchange, Decreased Breath Sounds ( mild-moderately decreased sounds at both bases, R>L). Negative for: Wheezes, Rales, Rhonchi Cardiovascular: Positive for: Regular Rate and Rhythm, Normal S1, S2, Peripheal Pulses Present (+2 radials, +1 dorsalis pedis bilaterally). Negative for: Irregular Rhythm, Tachycardic, Bradycardic Abdomen: Positive for: Normal Bowel Sounds. Negative for: Tenderness (abdomen is soft), Distention Upper Extremity: Positive for: Normal Inspection, NORMAL PULSES. Negative for: Edema Lower Extremity: Positive for: Normal Inspection, NORMAL PULSES (+1 dorsalis pedis pulses bilaterally). Negative for: Edema Neurological: Positive for: GCS=15, Speech Normal (speech is functionally normal , but wandering/rambling), Motor Func Grossly Intact (not grossly tremulous), Other (intubated and sedated) Skin: Positive for: Warm, Dry, Normal Color Psychiatric: Positive for: Other (confused, oriented to self, intermittently realizes he is in a hospital, but unsure of time, no insight into condition, not following most commands) - Medications Active Medications: Active Medications Generic Name Dose Route Start Last Admin Trade Name Freq PRN Reason Stop Dose Admin Albuterol/Ipratropium 3 ml 06/15/18 00:00 06/19/18 07:10 Duoneb 3 Mg/0.5 Mg (3 Ml) Ud INH 3 ml RQ4 MAYANK Administration Chlordiazepoxide 25 mg 06/18/18 01:30 06/19/18 09:27 Librium PO 25 mg Q8H MAYANK Administration Folic Acid 1 mg 06/18/18 10:00 06/19/18 09:28 Folic Acid PO 1 mg DAILY MAYANK Administration Levetiracetam 500 mg/ Dextrose 105 mls @ 420 mls/hr 06/11/18 07:30 06/19/18 06:58 IVPB 420 mls/hr Q12H MAYANK Administration Piperacillin Sod/Tazobactam Sod 3.375 gm in 50 mls @ 100 mls/hr 06/14/18 23: 00 06/19/18 04:33 Zosyn 3.375 Gm Iv Premix IVPB 100 mls/hr Q6H MAYANK Administration Protocol Dexmedetomidine HCl 200 mcg/ 50 mls @ 2.58 mls/hr 06/17/18 11:00 06/19/18 04: 43 Sodium Chloride IV 0.3 mcg/kg/hr TITR PRN 3.87 mls/hr Agitation Administration Protocol 0.2 MCG/KG/HR Vancomycin HCl 1 gm/ Sodium 200 mls @ 133.333 mls/hr 06/18/18 21:00 06/18/18 20:29 Chloride IVPB 133.333 mls/hr Q12H MAYANK Administration Protocol Fluconazole 100 mg/ 50 mls @ 100 mls/hr 06/18/18 14:00 06/19/18 09:25 Miscellaneous IVPB 07/02/18 14:01 100 mls/hr DAILY MAYANK Administration Protocol Methylprednisolone 40 mg 06/17/18 08:15 06/19/18 08:00 Solu-Medrol IV 40 mg Q6H MAYANK Administration Multivitamins/Vitamin C 5 ml 06/18/18 10:00 06/19/18 09:28 Multi-Delyn Liquid PO 5 ml DAILY MAYANK Administration Pantoprazole Sodium 40 mg 06/14/18 10:00 06/19/18 09:27 Protonix Inj IVP 40 mg Q12 MAYANK Administration Sucralfate 1 gm 06/11/18 18:00 06/19/18 09:26 Carafate Oral Susp PO 1 gm QID MAYANK Administration Thiamine HCl 100 mg 06/18/18 10:00 06/19/18 09:27 Vitamin B1 Tab PO 100 mg BID MAYANK Administration - Patient Studies Lab Studies: Microbiology Studies 06/16/18 17:11 Gram Stain - Final Trachasp Sputum Culture - Final Yeast Species Lab Studies 06/19/18 06/19/18 06/19/18 Range/Units 05:46 05:46 05:46 WBC 9.2 (4.8-10.8) K/uL RBC 3.58 L (4.40-5.90) Mil/uL Hgb 10.9 L (12.0-18.0) g/dL Hct 31.5 L (35.0-51.0) % MCV 88.1 (80.0-94.0) fL MCH 30.4 (27.0-31.0) pg MCHC 34.5 (33.0-37.0) g/dL RDW 20.6 H (11.5-14.5) % Plt Count 217 (130-400) K/uL MPV 7.6 (7.2-11.7) fL Neut % (Auto) 91.9 H (50.0-75.0) % Lymph % (Auto) 4.3 L (20.0-40.0) % [place] % (Auto) 3.6 (0.0-10.0) % Eos % (Auto) 0.0 (0.0-4.0) % Baso % (Auto) 0.2 (0.0-2.0) % Neut # (Auto) 8.4 H (1.8-7.0) K/uL Lymph # (Auto) 0.4 L (1.0-4.3) K/uL [place] # (Auto) 0.3 (0.0-0.8) K/uL Eos # (Auto) 0.0 (0.0-0.7) K/uL Baso # (Auto) 0.0 (0.0-0.2) K/uL Neutrophils % (Manual) 91 H (50-75) % Band Neutrophils % 1 (0-2) % Lymphocytes % (Manual) 4 L (20-40) % Monocytes % (Manual) 4 (0-10) % Toxic Granulation Present Platelet Estimate Normal (NORMAL) Large Platelets Present Hypochromasia (manual) Slight Poikilocytosis (manual Slight Anisocytosis (manual) Moderate Tear Drop Cells Slight Ovalocytes Slight Sodium 137 (132-148) mmol/L Potassium 3.6 (3.6-5.2) mmol/L Chloride 99 (98-107) mmol/L Carbon Dioxide 32 H (22-30) mmol/L Anion Gap 10 (10-20) BUN 11 (9-20) mg/dL Creatinine 0.5 L (0.8-1.5) mg/dL Est GFR ( Amer) > 60 Est GFR (Non-Af Amer) > 60 Random Glucose 137 H (75-110) mg/dL Hemoglobin A1c 5.1 (4.2-6.5) % Calcium 8.5 L (8.6-10.4) mg/dl Phosphorus 4.4 (2.5-4.5) mg/dL Magnesium 1.6 (1.6-2.3) mg/dL Total Bilirubin 0.6 (0.2-1.3) mg/dL AST 15 L D (17-59) U/L ALT 33 (21-72) U/L Alkaline Phosphatase 59 (38-126) U/L Total Protein 5.8 L (6.3-8.3) g/dL Albumin 3.0 L (3.5-5.0) g/dL Globulin 2.9 (2.2-3.9) gm/dL Albumin/Globulin Ratio 1.0 (1.0-2.1) Laboratory Results - last 24 hr 06/19/18 06/19/18 06/19/18 05:46 05:46 05:46 WBC 9.2 RBC 3.58 L Hgb 10.9 L Hct 31.5 L MCV 88.1 MCH 30.4 MCHC 34.5 RDW 20.6 H Plt Count 217 MPV 7.6 Neut % (Auto) 91.9 H Lymph % (Auto) 4.3 L [place] % (Auto) 3.6 Eos % (Auto) 0.0 Baso % (Auto) 0.2 Neut # (Auto) 8.4 H Lymph # (Auto) 0.4 L [place] # (Auto) 0.3 Eos # (Auto) 0.0 Baso # (Auto) 0.0 Neutrophils % (Manual) 91 H Band Neutrophils % 1 Lymphocytes % (Manual) 4 L Monocytes % (Manual) 4 Toxic Granulation Present Platelet Estimate Normal Large Platelets Present Hypochromasia (manual) Slight Poikilocytosis (manual Slight Anisocytosis (manual) Moderate Tear Drop Cells Slight Ovalocytes Slight Sodium 137 Potassium 3.6 Chloride 99 Carbon Dioxide 32 H Anion Gap 10 BUN 11 Creatinine 0.5 L Est GFR ( Amer) > 60 Est GFR (Non-Af Amer) > 60 Random Glucose 137 H Hemoglobin A1c 5.1 Calcium 8.5 L Phosphorus 4.4 Magnesium 1.6 Total Bilirubin 0.6 AST 15 L D ALT 33 Alkaline Phosphatase 59 Total Protein 5.8 L Albumin 3.0 L Globulin 2.9 Albumin/Globulin Ratio 1.0 Fingerstick Blood Sugar Results: 158 Review of Systems - Review of Systems Systems not reviewed;Unavailable: Uncooperative Critical Care Progress Note - Nutrition Nutrition: Nutrition Category Date Time Status Dysphagia/Modified Consistency Diet [DIET] Diets 06/18/18 Lunch Active Assessment/Plan - Assessment and Plan (Free Text) Assessment: This is a 52 year old male with PMHx of alcohol use disorder, seizure disorder, PUD, partial gastrectomy, COPD, and hiatal hernia who came to [facility] on 06/10 for PEA cardiac arrest. Pt suffered a seizure and was found in PEA by EMS, coded and intubated in the field, 2x more PEA arrests after arrival resolved with CPR; started on Levophed with 2nd in-house ROSC. Found to have upper GI bleed, s/p bedside EGD, 1 ulcer clipped, another in unfavorable position for endoscopic management. Now extubated, on PRN precedex and MAYANK Librium for agitation. Plan: Neuro: -pt AAOx3 at baseline, currently AAOx1.5 (oriented to self, partially/ intermittently to place) -Precedex PRN, MAYANK Librium for agitation -History of alcohol use disorder and seizure disorder (with apparent inconsistent medication use). -continue Folic Acid and Thiamine due to history of alcohol use -continue Keppra due to history of seizure disorder -EEG obtained for seizure likely due to alcohol withdrawal. Report (06/15) shows an abnormal awake and drowsy EEG which is very slow, indicating encephalopathy or medication effect. Recommend repeat EEG off sedation. -Neuro consult to Dr. Rubi; neuro is signed off case as of 06/16 Cardio: -maintain MAP>65 mmHg -echocardiogram (06/11) shows EF of 45-50%, Left ventricular diastolic function is abnormal. Transmitral doppler flow pattern is grade I-abnormal relaxation pattern. trace to mild tricuspid regurgitation. -troponin is normal -f/u cardiology recs Pulm: -extubated, appears to be tolerating well -CXR (06/19) shows mild increasing basilar airspace disease, NG tube removed, unchanged R medial basilar patchy density, resolved Mid-right patchy lung zone -Chest CTA (06/14) showed NO evidence of PE. Extensive right lower lobe consolidation/atelectasis with lesser atelectasis in the right middle lobe and lingula. Multifocal ground-glass opacity. Possible infectious etiology. Fluid/ secretion in right lower lobe bronchus and possible right upper lobe bronchus. Consider aspiration as etiology. Mild mediastinal and right hilar lymphadenopathy. -continue empiric antibiotics for likely aspiration pneumonia -last ABG (06/17) reviewed, adequate po2 with mild respiratory alkalosis, normal lactate -maintain spo2>92% -methylprednisolone remains at 40 mg IV q6h -duonebs q4h -Continue suction GI: -s/p clipping of gastric ulcers (06/11) -protonix for PUD ppx -continue Carafate 1mg po qid as per GI -GI recs IR and Surgery involvement if further bleeding, due to pt being difficult to treat endoscopically; signed off -Dysphagia diet Renal: -BUN/Cr 11/0.5 -maintain euvolemia -low normal magnesium, repleted -continue to monitor and replete electrolytes as needed ID: -extensive consolidation with fluid/secretion in bronchus on chest ct; likely aspiration pneumonia -continues to be Afebrile and w/o leukocyotosis -urine culture 06/13 final - no growth (06/11 culture: acintobacter baumannii) -1 of 2 blood cultures positive for coag negative staph in aerobic bottle only, possible contamination but empirically covered on Vanco anyway -Patient is currently on empiric antibiotic therapy due to likely aspiration pneumonia; continue Vanco, Zosyn, and Diflucan as per ID -f/u vancomycin trough Heme: -H/H 10.9/31.5 -anticoagulation contraindicated due to recent bleeding GI ulcer -no active signs of bleeding appreciated at this time Endo: -maintain euglycemia Integumentary: -stage 2 ulcer on sacrum previously identified -continue medihoney and optoform dressing as per primary team -wound care has been consulted Dispo: ICU, remains on PRN Precedex for agitation, low threshold for reintubation, pending improvement of AMS FEN: Dysphagia/Modified consistency diet, Magnesium Access: Peripheral IVs Consults: Neuro (signed off), GI (signed off), Nephro, Cardio PPX: protonix for pud; scds for dvt Case was reviewed and discussed with attending physician, Dr. Magdaleno
--- NOTE | 2018-06-19 13:10 | CP.PCM.PN ---
Subjective - Date & Time of Evaluation Date of Evaluation: 06/19/18 Time of Evaluation: 12:45 - Subjective Subjective: Hospitalist Progress Note Patient was seen and examined at 12:45 PM 06/19/18 ICU Bed 15 Patient was successfully extubated 06/17/18 He is still on precedex and still has bilateral mittens on but is no longer agitated. He is more awake but not following commands HgB/Hct continues to remain stable Lisinopril and Coreg have been started for his Systolic and Diastolic Heart Failure Repeat Chest X Ray 06/19/18 shows mildly increasingly basilar airspace disease as well as left infrahilar space with medial right basilar pathcy density not significantly changed, mid right lung zone patchy density resolved He had a normal bowel movement this morning See Assessment and Plans below for further details General: Patient is awake but not following commands and still confused as per Nurse Toy. HEENT: NCA, Pupils are round and reactive to light sluggishly, NO lymphadenopathy, NO thyromegaly Cardio: heart sounds are very faint however this exam is limited (NS1 and NS2, NO M/R/G) Respiratory: Course breath sounds diffusely GI: BSx4, Soft, NO HSM, NO guarding/rebound tenderness, ND Ext: Radial pulses are strong and equal, Pedal pulses are weak, NO edema, Capillary Refill is 3 seconds, Bilateral lower legs with multiple round dry eschars Skin: Stage II Sacral Ulcer without any surrounding signs of cellulitis 1). Cardiopulmonary Arrest Assessment/Plan * Cardiology Dr. Iglesias try on baster-->help appreciated * PEA s/p ROSC NSR * Echocardiogram (06/12/18): ejection fraction: 45-50%, left ventricular diastolic function is abnormal. left atrium size looks normal right atrium size looks normal. trace to mild tricupsid regurgitaton * Solumedrol 40 mg IV Q6H 2). Hyponatremia Assessment/Plan * Nephrology Dr. Shafer on board-->help appreciated * Secondary to Alcohol Abuse * Received 3 NS boluses in ER * Seizure precautions * Normalized 3). Hypokalemia/Hypomagnesemia/Hypophosphotemia Assessment/Plan * Replete as needed 4). Metabolic Acidosis Assessment/Plan * Likely secondary to the Cadriopulmonary Arrest, GI bleed, Respiratory Distress * Resolved 5). Seizure Assessment/Plan * Neurology Dr. Richie Rubi on board-->help appreciated * Risk factor: heavy alcohol use and hyponatremia, hypomagnesium * Head CT (06/11/18): no acute intracranial abnormality. Chronic microvascular ischemic changes. sinus mucosal disease as above * He has a history of alcohol withdrawal seizures * Keppra 500 mg IV Q12H * Recommend EEG if mental status does not improve after extubation and once off precedex 6). Anemia likely secondary to GI Bleed History of Peptic Ulcer Disease Bleeding Ulcer Assessment/Plan * GI Dr. Ho on consult help appreciated * CT Chest/abdomen/pelvis (06/12/18): distended bowel suggesting an ileus. Markedly limited evaluation of the bowel without oral or intravenous contrast. Suggestion of prior Bilroth 2 procedure. Fluid filled dilatation of small bowel andproximal colon. Fluid filled dilatation of the small bowel and prozimal colon. Fluid in the descending colon without a sharp transition sozne. Portions of transverse colon were not well visualized. * Monitor H/H and transfuse as needed * Carafate 1g qid * S/P EGD POD2: 2 anastomotic ulcers with visible vessel s/p APC and 5 clips, one ulcer with visible vessel and adherent clot was not intervened on due to adverse location--->If pt develops further bleeding will need IR and Surgery on board, difficult to treat endoscopically * Monitor H/H: received 2 units on 06/16/18 and is currently stable * No NSAIDS and strong history of alcohol abuse 7). Hypocalcemia Assessment/Plan * Monitor 8). Acute Respiratory Failure Assessment/Plan * Extubated 06/12/18 and Re-intubated on 06/14/18 and extubated 06/17/18 * Management per ICU * Noted rib fractures * Patient is on Zosyn and Vancomycin to cover for bilateral pneumonia * Solumedrol 40 mg IV Q6H 9) Open Wounds on Sacrum Stage II Assessment/Plan * Turn [id number] * MediHoney with Optifoam Dressing 10) Bilateral Anterior Rib and Sternal Fractures Assessment/Plan * Noted on CT Chest * Secondary to CPR given cardiopulmonary arrest 11) Pneumonia Assessment/Plan * CT Chest 06/11/18: thinned walled cavity in the right upper lobe which may be the sequelae of prior infection 5mm subpleural nodule within the anterior right middle lobe. Focal consolidation within the inferior right middle lobe. Focal consolidation within the right lower lobe. Patchy ground glass opacities in both lungs which and nonspecific but may secondary to alectasis versus contusion versus pneumonitis. * Zosyn 3.375g IV Q8H (active since 06/11/18) and Vancomycin 1 gm IV Q12H ( active since 06/14/18) * Vancomycin trough is within range of 15 to 20. Next Vancomycin Trough 06/20/18 at 8:30 PM * Tracheal Aspirate 06/16/18 shows Yeast Species and Fluconazole 100 mg IV 1x/ day has been ordered through 07/02/18 * NO fevers and vitals are stable 12) Systolic and Diastolic Heart Failure * Echocardiogram 06/12/18 shows EF at 45-50%, left ventricular diastolic function abnormal with Grade I abnormal relaxation pattern, trace to mild ticuspid regurgitation * Lisinopril 10 mg PO 1x/day * Coreg 3.125 mg PO 2x/day * F/U any recommendations from Cardiology Dr. Iglesias 13) Urinary tract infection * Zosyn 3.375g IV Q8H (active since 06/11/18) * Repeat urine culture 06/13/18 showed NO growth 14) Bacteremia * Repeat blood culture 06/12/18 is negative at 5 days 15) Alcoholism * Hx heavy use * On Precedex * Librium 25 mg PO Q8H * MVI PO 1x/day 16) Prophylactic measure * Protonix 40 mg IV Q12H * Lactobacillus 1 cap PO 2x/day * Chemical anticoagulation held secondary to GI bleed * Turn [id number] * Pureed Diet for now: F/U Swallow Evaluation 06/20/18 * Order Physical Therapy evaluation when patient able to follow instructions * Aspiration precautions * Seizure precautions * Wound care on board Prem Noland D.O. Objective - Vital Signs/Intake and Output Vital Signs (last 24 hours): Temp Pulse Resp BP Pulse Ox 98.7 F 64 17 160/72 H 98 06/19/18 12:00 06/19/18 12:00 06/19/18 12:00 06/19/18 11:42 06/19/18 12:00 Intake and Output: 06/19/18 06/19/18 06:59 18:59 Intake Total 549.0 Output Total 1500 Balance -951.0 - Medications Medications: Current Medications Albuterol/Ipratropium (Duoneb 3 Mg/0.5 Mg (3 Ml) Ud) 3 ml INH RQ4 [facility] Last Admin: 06/19/18 12:01 Dose: 3 ml Chlordiazepoxide (Librium) 25 mg PO Q8H [facility] Last Admin: 06/19/18 09:27 Dose: 25 mg Folic Acid (Folic Acid) 1 mg PO DAILY [facility] Last Admin: 06/19/18 09:28 Dose: 1 mg Levetiracetam 500 mg/ Dextrose 105 mls @ 420 mls/hr IVPB Q12H [facility] Last Admin: 06/19/18 06:58 Dose: 420 mls/hr Piperacillin Sod/Tazobactam Sod (Zosyn 3.375 Gm Iv Premix) 3.375 gm in 50 mls @ 100 mls/hr IVPB Q6H [facility] PRN Reason: Protocol Last Admin: 06/19/18 11:40 Dose: 100 mls/hr Dexmedetomidine HCl 200 mcg/ (Sodium Chloride) 50 mls @ 2.58 mls/hr IV TITR PRN ; Protocol; 0.2 MCG/KG/HR PRN Reason: Agitation Last Admin: 06/19/18 04:43 Dose: 0.3 mcg/kg/hr, 3.87 mls/hr Vancomycin HCl 1 gm/ Sodium (Chloride) 200 mls @ 133.333 mls/hr IVPB Q12H [facility] PRN Reason: Protocol Last Admin: 06/19/18 10:05 Dose: 133.333 mls/hr Fluconazole 100 mg/ (Miscellaneous) 50 mls @ 100 mls/hr IVPB DAILY [facility] PRN Reason: Protocol Stop: 07/02/18 14:01 Last Admin: 06/19/18 09:25 Dose: 100 mls/hr Methylprednisolone (Solu-Medrol) 40 mg IV Q6H [facility] Last Admin: 06/19/18 08:00 Dose: 40 mg Multivitamins/Vitamin C (Multi-Delyn Liquid) 5 ml PO DAILY [facility] Last Admin: 06/19/18 09:28 Dose: 5 ml Pantoprazole Sodium (Protonix Inj) 40 mg IVP Q12 [facility] Last Admin: 06/19/18 09:27 Dose: 40 mg Sucralfate (Carafate Oral Susp) 1 gm PO QID [facility] Last Admin: 06/19/18 09:26 Dose: 1 gm Thiamine HCl (Vitamin B1 Tab) 100 mg PO BID [facility] Last Admin: 06/19/18 09:27 Dose: 100 mg - Labs Labs: 06/19/18 05:46 06/19/18 05:46 PT 16.0 SECONDS (9.7-12.2) H 06/13/18 06:20 INR 1.5 06/13/18 06:20 APTT 40 SECONDS (21-34) H 06/10/18 23:37
[2018-06-19] MEDS: Magnesium Sulfate 1 gm in D5W 1 GM/100 ML BAG IVPB SCH ×2 (20:33→20:38)
[2018-06-20] MEDS: MethylPREDNISolone 40 mg Vial IV SCH ×4 (02:28→16:22)
[2018-06-20] MEDS: Albuterol-Ipratrop 3 mg / 0.5 (3 ml) UD INH SCH ×5 (03:03→19:43)
[2018-06-20] MEDS: Piperacill/Tazo 3.375gm in Dex 3.375 GM/50 ML BAG IVPB SCH ×4 (04:34→22:00)
[2018-06-20 06:32] LABS: HEMOGLOBIN 11.6 g/dL (12.0-18.0); LYMPH # 0.4 K/uL (1.0-4.3); MEAN CORPUSCULAR HEMOGLOBIN 30.2 pg (27.0-31.0); MEAN CORPUSCULAR HGB CONC 33.9 g/dL (33.0-37.0); MEAN PLATELET VOLUME 7.9 fL (7.2-11.7); MONO # 0.4 K/uL (0.0-0.8); MONO % 3.2 % (0.0-10.0); NEUT # 10.9 K/uL (1.8-7.0); NEUT % 93.8 % (50.0-75.0); PLATELET COUNT 259 K/uL (130-400); RBC 3.83 Mil/uL (4.40-5.90); RED CELL DISTRIBUTION WIDTH 20.1 % (11.5-14.5); WHITE BLOOD COUNT 11.7 K/uL (4.8-10.8)
[2018-06-20 06:44] LABS: ALB/GLOB RATIO 1.1 (1.0-2.1); ALT/SGPT 37 U/L (21-72); AST/SGOT 20 U/L (17-59); BLOOD UREA NITROGEN 13 mg/dL (9-20); CALCIUM 8.8 mg/dl (8.6-10.4); GFR NON-AFRICAN AMERICAN > 60
[2018-06-20 08:42] LABS: ANISOCYTOSIS MODERATE; BANDS 3 % (0-2); BURR CELLS SLIGHT; LYMPHOCYTE 2 % (20-40); MONOCYTE 6 % (0-10); MYELOCYTE 1 % (0-0); NEUTROPHIL 88 % (50-75); PLATELET ESTIMATE NORMAL (NORMAL); POIKILOCYTOSIS SLIGHT; TOTAL CELLS COUNTED 100
--- NOTE | 2018-06-20 08:49 | CP.PCM.PN ---
Subjective - Date & Time of Evaluation Date of Evaluation: 06/20/18 Time of Evaluation: 08:45 - Subjective Subjective: Hospitalist Note: Patient seen and examined. No events noted overnight. Discussed with RN , Toy, formed stool overnight. Patient is pending official swallow eval. [facility] me [facility] name [facility]. Patient reports he is hungry and wants ice cream. I explained to him we are waiting on the official swallow eval since he was recently extubated for the second time. Patient's mother is at bedside. Patient is very soft spoken. Patient is encouraged to cough up sputum. patient is on Precedex for agitation and encephalopathy.. Objective - Vital Signs/Intake and Output Vital Signs (last 24 hours): Temp Pulse Resp BP Pulse Ox 98.2 F 77 20 158/84 H 96 06/20/18 04:00 06/20/18 06:00 06/20/18 06:00 06/20/18 05:42 06/20/18 06:00 Intake and Output: 06/20/18 06/20/18 06:59 18:59 Intake Total 834.0 Output Total 1800 Balance -966.0 - Medications Medications: Current Medications Albuterol/Ipratropium (Duoneb 3 Mg/0.5 Mg (3 Ml) Ud) 3 ml INH RQ4 [facility] Last Admin: 06/20/18 07:45 Dose: 3 ml Carvedilol (Coreg) 3.125 mg PO BID [facility] Last Admin: 06/19/18 18:05 Dose: 3.125 mg Chlordiazepoxide (Librium) 25 mg PO Q8H [facility] Last Admin: 06/20/18 02:29 Dose: 25 mg Folic Acid (Folic Acid) 1 mg PO DAILY [facility] Last Admin: 06/19/18 09:28 Dose: 1 mg Levetiracetam 500 mg/ Dextrose 105 mls @ 420 mls/hr IVPB Q12H [facility] Last Admin: 06/20/18 06:31 Dose: 420 mls/hr Piperacillin Sod/Tazobactam Sod (Zosyn 3.375 Gm Iv Premix) 3.375 gm in 50 mls @ 100 mls/hr IVPB Q6H [facility] PRN Reason: Protocol Last Admin: 06/20/18 04:34 Dose: 100 mls/hr Dexmedetomidine HCl 200 mcg/ (Sodium Chloride) 50 mls @ 2.58 mls/hr IV TITR PRN ; Protocol; 0.2 MCG/KG/HR PRN Reason: Agitation Last Titration: 06/20/18 01:00 Dose: 0.3 mcg/kg/hr, 3.87 mls/hr Vancomycin HCl 1 gm/ Sodium (Chloride) 200 mls @ 133.333 mls/hr IVPB Q12H [facility] PRN Reason: Protocol Last Admin: 06/19/18 20:44 Dose: 133.333 mls/hr Fluconazole 100 mg/ (Miscellaneous) 50 mls @ 100 mls/hr IVPB DAILY [facility] PRN Reason: Protocol Stop: 07/02/18 14:01 Last Admin: 06/19/18 09:25 Dose: 100 mls/hr Potassium Chloride (Potassium Chloride 20 Meq/100 Ml) 20 meq in 100 mls @ 50 mls/hr IVPB ONCE ONE Stop: 06/20/18 10:42 Potassium Chloride (Potassium Chloride 20 Meq/100 Ml) 20 meq in 100 mls @ 50 mls/hr IVPB ONCE ONE Stop: 06/20/18 12:42 Lisinopril (Zestril) 10 mg PO DAILY [facility] Last Admin: 06/19/18 15:29 Dose: 10 mg Methylprednisolone (Solu-Medrol) 40 mg IV Q6H [facility] Last Admin: 06/20/18 02:28 Dose: 40 mg Multivitamins/Vitamin C (Multi-Delyn Liquid) 5 ml PO DAILY [facility] Last Admin: 06/19/18 09:28 Dose: 5 ml Pantoprazole Sodium (Protonix Inj) 40 mg IVP Q12 [facility] Last Admin: 06/19/18 21:03 Dose: 40 mg Sucralfate (Carafate Oral Susp) 1 gm PO QID [facility] Last Admin: 06/19/18 21:03 Dose: 1 gm Thiamine HCl (Vitamin B1 Tab) 100 mg PO BID [facility] Last Admin: 06/19/18 18:05 Dose: 100 mg - Labs Labs: 06/20/18 06:24 06/20/18 06:24 PT 16.0 SECONDS (9.7-12.2) H 06/13/18 06:20 INR 1.5 06/13/18 06:20 APTT 40 SECONDS (21-34) H 06/10/18 23:37 - Constitutional Appears: Non-toxic, No Acute Distress, Confused, Cachectic, Chronically Ill - Head Exam Head Exam: NORMAL INSPECTION - Eye Exam Eye Exam: EOMI - ENT Exam ENT Exam: Mucous Membranes Dry - Respiratory Exam Respiratory Exam: Decreased Breath Sounds, Rhonchi, NORMAL BREATHING PATTERN. absent: Wheezes, Respiratory Distress - Cardiovascular Exam Cardiovascular Exam: REGULAR RHYTHM, +S1, +S2 - GI/Abdominal Exam GI & Abdominal Exam: Soft, Normal Bowel Sounds. absent: Distended, Firm, Guarding, Rigid, Tenderness, Rebound - Extremities Exam Extremities Exam: absent: Pedal Edema, Tenderness - Neurological Exam Neurological Exam: Awake. absent: Oriented x3 - Psychiatric Exam Psychiatric exam: Normal Affect, Normal Mood - Skin Skin Exam: Dry, Normal Color, Warm Assessment and Plan (1) Cardiac arrest Status: Acute (2) Respiratory failure Status: Acute (3) Seizure Status: Acute (4) GI bleeding Status: Acute (5) Hyponatremia Status: Acute (6) Prophylactic measure Status: Acute Attending/Attestation - Attestation I have personally seen and examined this patient.: Yes I have fully participated in the care of the patient.: Yes I have reviewed all pertinent clinical information, including history, physical exam and plan: Yes Notes (Text): Patient is awaiting swallow eval. Patient's steroid is being taper. Held Vancomycin given elevated trough Potassium repleted Pending INR for PICC line placement PT/OT eval Note: patient has two prior sacral wounds; wound care, turn q 2hours Patient is on Precedex presently. Assessment/Plan 1). Cardiopulmonary Arrest Assessment/Plan * Cardiology Dr. Iglesias director of restaurant operations-->help appreciated * PEA s/p ROSC NSR * Echocardiogram (06/12/18): ejection fraction: 45-50%, left ventricular diastolic function is abnormal. left atrium size looks normal right atrium size looks normal. trace to mild tricupsid regurgitaton * Solumedrol 40 mg IV Q6H (since 06/17/18) * Taper to 40mg IV Q8H 2). Hyponatremia Assessment/Plan * Nephrology Dr. Shafer on board-->help appreciated * Secondary to Alcohol Abuse * Received 3 NS boluses in ER * Seizure precautions * Normalized 3). Hypokalemia/Hypomagnesemia/Hypophosphotemia Assessment/Plan * Replete as needed 4). Metabolic Acidosis Assessment/Plan * Likely secondary to the Cadriopulmonary Arrest, GI bleed, Respiratory Distress * Resolved 5). Seizure Assessment/Plan * Neurology Dr. Richie Rubi on board-->help appreciated * Risk factor: heavy alcohol use and hyponatremia, hypomagnesium * Head CT (06/11/18): no acute intracranial abnormality. Chronic microvascular ischemic changes. sinus mucosal disease as above * He has a history of alcohol withdrawal seizures * Patient is on Precedex * Will need to monitor mental status and agitation * Keppra 500 mg IV Q12H * Recommend EEG if mental status does not improve after extubation and once off precedex 6). Anemia likely secondary to GI Bleed History of Peptic Ulcer Disease Bleeding Ulcer Assessment/Plan * GI Dr. Ho on consult help appreciated * CT Chest/abdomen/pelvis (06/12/18): distended bowel suggesting an ileus. Markedly limited evaluation of the bowel without oral or intravenous contrast. Suggestion of prior Bilroth 2 procedure. Fluid filled dilatation of small bowel andproximal colon. Fluid filled dilatation of the small bowel and prozimal colon. Fluid in the descending colon without a sharp transition sozne. Portions of transverse colon were not well visualized. * Monitor H/H and transfuse as needed * Carafate 1g qid * S/P EGD POD2: 2 anastomotic ulcers with visible vessel s/p APC and 5 clips, one ulcer with visible vessel and adherent clot was not intervened on due to adverse location--->If pt develops further bleeding will need IR and Surgery on board, difficult to treat endoscopically * Monitor H/H: received 2 units on 06/16/18 and is currently stable * No NSAIDS and strong history of alcohol abuse 7). Hypocalcemia Assessment/Plan * Monitor 8). Acute Respiratory Failure Assessment/Plan * Extubated 06/12/18 and Re-intubated on 06/14/18 and extubated 06/17/18 * Management per ICU * Noted rib fractures * Patient is on Zosyn and held Vancomycin given elevated trough to cover for bilateral pneumonia * Taper Solumedrol 40 mg IV Q8H * Patient has productive cough. 9) Open Wounds on Sacrum Stage II Assessment/Plan * Turn [id number] * MediHoney with Optifoam Dressing 10) Bilateral Anterior Rib and Sternal Fractures Assessment/Plan * Noted on CT Chest * Secondary to CPR given cardiopulmonary arrest 11) Pneumonia Assessment/Plan * CT Chest 06/11/18: thinned walled cavity in the right upper lobe which may be the sequelae of prior infection 5mm subpleural nodule within the anterior right middle lobe. Focal consolidation within the inferior right middle lobe. Focal consolidation within the right lower lobe. Patchy ground glass opacities in both lungs which and nonspecific but may secondary to alectasis versus contusion versus pneumonitis. * Zosyn 3.375g IV Q8H (active since 06/11/18) and Vancomycin 1 gm IV Q12H ( active since 06/14/18) * Vancomycin trough is within range of 15 to 20. Next Vancomycin Trough 06/20/18 at 8:30 PM * Hold Vancomcyin today given elevated vancomycin trough * Tracheal Aspirate 06/16/18 shows Yeast Species and Fluconazole 100 mg IV 1x/ day has been ordered through 07/02/18 * NO fevers and vitals are stable 12) Systolic and Diastolic Heart Failure * Echocardiogram 06/12/18 shows EF at 45-50%, left ventricular diastolic function abnormal with Grade I abnormal relaxation pattern, trace to mild ticuspid regurgitation * Lisinopril 10 mg PO 1x/day * Coreg 3.125 mg PO 2x/day * F/U any recommendations from Cardiology Dr. Iglesias 13) Urinary tract infection * Zosyn 3.375g IV Q8H (active since 06/11/18) * Repeat urine culture 06/13/18 showed NO growth 14) Bacteremia * Repeat blood culture 06/12/18 is negative at 5 days 15) Alcoholism * Hx heavy use * On Precedex * Librium 25 mg PO Q8H * MVI PO 1x/day 16) Prophylactic measure * Protonix 40 mg IV Q12H * Lactobacillus 1 cap PO 2x/day * Chemical anticoagulation held secondary to GI bleed * Turn [id number] * Order Physical Therapy evaluation when patient able to follow instructions * Aspiration precautions * Seizure precautions * Wound care on board
[2018-06-20] MEDS: Sucralfate 1 gm/10 ml Oral Susp UD PO SCH ×4 (09:34→21:35)
[2018-06-20] MEDS: Multiple Vitamins Oral Solution PO SCH (09:34)
--- NOTE | 2018-06-20 09:48 | RAD ---
Date of service: 06/20/2018 HISTORY: pneumonia COMPARISON: 06/19/2018 FINDINGS: Stable position of the left IJV line terminating in the SVC. LUNGS: There is interval mild improved aeration in the lungs with residual moderate pulmonary venous congestion. There is discoid atelectasis in the right lower lobe. There is persistent airspace disease in the left lower lobe. PLEURA: Small left pleural effusion, no pneumothorax apparent. CARDIOVASCULAR: Normal. OSSEOUS STRUCTURES: No significant abnormalities. VISUALIZED UPPER ABDOMEN: Normal. OTHER FINDINGS: None. IMPRESSION: Improving aeration in the lungs with persistent moderate pulmonary venous congestion and left lower lobe airspace disease which likely represents pneumonia. Also noted is small left pleural effusion.
[2018-06-20 10:20] LABS: INR 1.2; PROTHROMBIN TIME 13.6 SECONDS (9.7-12.2)
[2018-06-20] MEDS: Fluconazole IV 200mg/100 ml NS 100 MG in Premixed IV 1 EA IVPB SCH (11:00)
--- NOTE | 2018-06-20 11:08 | CP.CCUPN ---
CCU Subjective - Physician Review Subjective (Free Text): 06/20/18 15:19 ICU progress note for Dr. Magdaleno Patient seen and examined at bedside. Patient awake, able to mouth words. No complaints of pain at this time. He wants to have his hand mittens removed at this time. He remains intermittently agitated. Not answering most questions, not following most commands. He is focused on having his hand mittens removed. CCU Objective - Vital Signs / Intake & Output Vital Signs (Last 4 hours): Vital Signs Temp Pulse Resp BP Pulse Ox 06/20/18 10:42 88 16 131/77 98 06/20/18 10:00 102 H 18 98 06/20/18 09:42 100 H 22 116/74 96 06/20/18 09:00 76 22 97 06/20/18 08:43 82 29 H 150/71 95 06/20/18 08:00 98.2 F 74 19 131/77 100 06/20/18 07:42 69 18 157/86 H 100 Intake and Output (Last 8hrs): Intake & Output 06/19/18 06/20/18 06/20/18 22:59 06:59 14:59 Intake Total 444.1 462.7 211.7 Output Total 800 1000 Balance -355.9 -537.3 211.7 Weight 108 lb Intake: IV 100 25 Intake, IV Amount 344.1 437.7 211.7 LEFT IJ DISTAL PORT 44.1 37.7 11.7 LEFT IJ PROXIMAL PORT 300 400 200 Output: Urine 800 1000 Condom 800 1000 Other: # Bowel Movements 2 1 - Physical Exam Head: Positive for: Atraumatic, Normocephalic Pupils: Negative for: Non-Reactive, Pinpoint Extroacular Muscles: Positive for: EOMI (Track staff throughout room) Conjunctiva: Positive for: Normal. Negative for: Injected, Icteric Mouth: Positive for: Moist Mucous Membranes Nose (Internal): Positive for: No Active Bleeding. Negative for: Epistaxis Neck: Positive for: Normal Range of Motion, Trachea Midline. Negative for: JVD Respiratory/Chest: Positive for: Decreased Breath Sounds (mild-moderately decreased sounds at both bases, R>L), Other (Paradoxical breathing noted ). Negative for: Wheezes, Rales, Rhonchi Cardiovascular: Positive for: Regular Rate and Rhythm, Normal S1, S2, Peripheal Pulses Present. Negative for: Irregular Rhythm, Tachycardic, Bradycardic Abdomen: Positive for: Normal Bowel Sounds. Negative for: Tenderness (abdomen is soft), Distention Upper Extremity: Positive for: Normal Inspection, NORMAL PULSES. Negative for: Edema Lower Extremity: Positive for: Normal Inspection, NORMAL PULSES. Negative for: Edema Neurological: Positive for: GCS=15, Speech Normal (Patient mouths words), Motor Func Grossly Intact (not grossly tremulous), Other (awake) Skin: Positive for: Warm, Dry, Normal Color Psychiatric: Positive for: Other (Awake. Able to state date of , however unable to state current date. Unclear if oriented to place, no insight into condition, not following most commands. Points to mittens to remove them.) - Medications Active Medications: Active Medications Generic Name Dose Route Start Last Admin Trade Name Freq PRN Reason Stop Dose Admin Albuterol/Ipratropium 3 ml 06/15/18 00:00 06/20/18 07:45 Duoneb 3 Mg/0.5 Mg (3 Ml) Ud INH 3 ml RQ4 MAYANK Administration Carvedilol 3.125 mg 06/19/18 18:00 06/20/18 09:34 Coreg PO 3.125 mg BID MAYANK Administration Chlordiazepoxide 25 mg 06/18/18 01:30 06/20/18 09:34 Librium PO 25 mg Q8H MAYANK Administration Folic Acid 1 mg 06/18/18 10:00 06/20/18 09:34 Folic Acid PO 1 mg DAILY MAYANK Administration Levetiracetam 500 mg/ Dextrose 105 mls @ 420 mls/hr 06/11/18 07:30 06/20/18 06:31 IVPB 420 mls/hr Q12H MAYANK Administration Piperacillin Sod/Tazobactam Sod 3.375 gm in 50 mls @ 100 mls/hr 06/14/18 23: 00 06/20/18 04:34 Zosyn 3.375 Gm Iv Premix IVPB 100 mls/hr Q6H MAYANK Administration Protocol Dexmedetomidine HCl 200 mcg/ 50 mls @ 2.58 mls/hr 06/17/18 11:00 06/20/18 01: 00 Sodium Chloride IV 0.3 mcg/kg/hr TITR PRN 3.87 mls/hr Agitation Titration Protocol 0.2 MCG/KG/HR Vancomycin HCl 1 gm/ Sodium 200 mls @ 133.333 mls/hr 06/18/18 21:00 06/19/18 20:44 Chloride IVPB 133.333 mls/hr Q12H MAYANK Administration Protocol Fluconazole 100 mg/ 50 mls @ 100 mls/hr 06/18/18 14:00 06/19/18 09:25 Miscellaneous IVPB 07/02/18 14:01 100 mls/hr DAILY MAYANK Administration Protocol Potassium Chloride 20 meq in 100 mls @ 50 mls/hr 06/20/18 10:43 06/20/18 10: 30 Potassium Chloride 20 Meq/100 Ml IVPB 06/20/18 12:42 50 mls/hr ONCE ONE Administration Lisinopril 10 mg 06/19/18 15:15 06/20/18 09:34 Zestril PO 10 mg DAILY MAYANK Administration Methylprednisolone 40 mg 06/20/18 09:00 06/20/18 09:25 Solu-Medrol IV 40 mg Q8H MAYANK Administration Multivitamins/Vitamin C 5 ml 06/18/18 10:00 06/20/18 09:34 Multi-Delyn Liquid PO 5 ml DAILY MAYANK Administration Pantoprazole Sodium 40 mg 06/14/18 10:00 06/20/18 09:34 Protonix Inj IVP 40 mg Q12 MAYANK Administration Sucralfate 1 gm 06/11/18 18:00 06/20/18 09:34 Carafate Oral Susp PO 1 gm QID MAYANK Administration Thiamine HCl 100 mg 06/18/18 10:00 06/20/18 09:34 Vitamin B1 Tab PO 100 mg BID MAYANK Administration - Patient Studies Lab Studies: Lab Studies 06/20/18 06/20/18 06/20/18 Range/Units 10:09 06:24 06:24 WBC 11.7 H (4.8-10.8) K/uL RBC 3.83 L (4.40-5.90) Mil/uL Hgb 11.6 L (12.0-18.0) g/dL Hct 34.1 L (35.0-51.0) % MCV 89.0 (80.0-94.0) fL MCH 30.2 (27.0-31.0) pg MCHC 33.9 (33.0-37.0) g/dL RDW 20.1 H (11.5-14.5) % Plt Count 259 (130-400) K/uL MPV 7.9 (7.2-11.7) fL Neut % (Auto) 93.8 H (50.0-75.0) % Lymph % (Auto) 3.0 L (20.0-40.0) % [place] % (Auto) 3.2 (0.0-10.0) % Eos % (Auto) 0.0 (0.0-4.0) % Baso % (Auto) 0.0 (0.0-2.0) % Neut # (Auto) 10.9 H (1.8-7.0) K/uL Lymph # (Auto) 0.4 L (1.0-4.3) K/uL [place] # (Auto) 0.4 (0.0-0.8) K/uL Eos # (Auto) 0.0 (0.0-0.7) K/uL Baso # (Auto) 0.0 (0.0-0.2) K/uL Neutrophils % (Manual) 88 H (50-75) % Band Neutrophils % 3 H (0-2) % Lymphocytes % (Manual) 2 L (20-40) % Monocytes % (Manual) 6 (0-10) % Myelocytes % 1 H (0-0) % Platelet Estimate Normal (NORMAL) Poikilocytosis (manual Slight Anisocytosis (manual) Moderate [place] Cells Slight PT 13.6 H (9.7-12.2) SECONDS INR 1.2 Sodium 138 (132-148) mmol/L Potassium 3.0 L (3.6-5.2) mmol/L Chloride 97 L (98-107) mmol/L Carbon Dioxide 33 H (22-30) mmol/L Anion Gap 10 (10-20) BUN 13 (9-20) mg/dL Creatinine 0.6 L (0.8-1.5) mg/dL Est GFR ( Amer) > 60 Est GFR (Non-Af Amer) > 60 Random Glucose 127 H (75-110) mg/dL Calcium 8.8 (8.6-10.4) mg/dl Phosphorus 3.3 (2.5-4.5) mg/dL Magnesium 2.0 (1.6-2.3) mg/dL Total Bilirubin 0.4 (0.2-1.3) mg/dL AST 20 (17-59) U/L ALT 37 (21-72) U/L Alkaline Phosphatase 71 (38-126) U/L Total Protein 5.7 L (6.3-8.3) g/dL Albumin 3.0 L (3.5-5.0) g/dL Globulin 2.8 (2.2-3.9) gm/dL Albumin/Globulin Ratio 1.1 (1.0-2.1) Vancomycin Trough (5.0-10.0) ug/mL 06/20/18 Range/Units 06:24 WBC (4.8-10.8) K/uL RBC (4.40-5.90) Mil/uL Hgb (12.0-18.0) g/dL Hct (35.0-51.0) % MCV (80.0-94.0) fL MCH (27.0-31.0) pg MCHC (33.0-37.0) g/dL RDW (11.5-14.5) % Plt Count (130-400) K/uL MPV (7.2-11.7) fL Neut % (Auto) (50.0-75.0) % Lymph % (Auto) (20.0-40.0) % [place] % (Auto) (0.0-10.0) % Eos % (Auto) (0.0-4.0) % Baso % (Auto) (0.0-2.0) % Neut # (Auto) (1.8-7.0) K/uL Lymph # (Auto) (1.0-4.3) K/uL [place] # (Auto) (0.0-0.8) K/uL Eos # (Auto) (0.0-0.7) K/uL Baso # (Auto) (0.0-0.2) K/uL Neutrophils % (Manual) (50-75) % Band Neutrophils % (0-2) % Lymphocytes % (Manual) (20-40) % Monocytes % (Manual) (0-10) % Myelocytes % (0-0) % Platelet Estimate (NORMAL) Poikilocytosis (manual Anisocytosis (manual) [place] Cells PT (9.7-12.2) SECONDS INR Sodium (132-148) mmol/L Potassium (3.6-5.2) mmol/L Chloride (98-107) mmol/L Carbon Dioxide (22-30) mmol/L Anion Gap (10-20) BUN (9-20) mg/dL Creatinine (0.8-1.5) mg/dL Est GFR ( Amer) Est GFR (Non-Af Amer) Random Glucose (75-110) mg/dL Calcium (8.6-10.4) mg/dl Phosphorus (2.5-4.5) mg/dL Magnesium (1.6-2.3) mg/dL Total Bilirubin (0.2-1.3) mg/dL AST (17-59) U/L ALT (21-72) U/L Alkaline Phosphatase (38-126) U/L Total Protein (6.3-8.3) g/dL Albumin (3.5-5.0) g/dL Globulin (2.2-3.9) gm/dL Albumin/Globulin Ratio (1.0-2.1) Vancomycin Trough 25.4 H (5.0-10.0) ug/mL Laboratory Results - last 24 hr 06/20/18 06/20/18 06/20/18 06:24 06:24 06:24 WBC 11.7 H RBC 3.83 L Hgb 11.6 L Hct 34.1 L MCV 89.0 MCH 30.2 MCHC 33.9 RDW 20.1 H Plt Count 259 MPV 7.9 Neut % (Auto) 93.8 H Lymph % (Auto) 3.0 L [place] % (Auto) 3.2 Eos % (Auto) 0.0 Baso % (Auto) 0.0 Neut # (Auto) 10.9 H Lymph # (Auto) 0.4 L [place] # (Auto) 0.4 Eos # (Auto) 0.0 Baso # (Auto) 0.0 Neutrophils % (Manual) 88 H Band Neutrophils % 3 H Lymphocytes % (Manual) 2 L Monocytes % (Manual) 6 Myelocytes % 1 H Platelet Estimate Normal Poikilocytosis (manual Slight Anisocytosis (manual) Moderate Tra Cells Slight PT INR Sodium 138 Potassium 3.0 L Chloride 97 L Carbon Dioxide 33 H Anion Gap 10 BUN 13 Creatinine 0.6 L Est GFR ( Amer) > 60 Est GFR (Non-Af Amer) > 60 Random Glucose 127 H Calcium 8.8 Phosphorus 3.3 Magnesium 2.0 Total Bilirubin 0.4 AST 20 ALT 37 Alkaline Phosphatase 71 Total Protein 5.7 L Albumin 3.0 L Globulin 2.8 Albumin/Globulin Ratio 1.1 Vancomycin Trough 25.4 H 06/20/18 10:09 WBC RBC Hgb Hct MCV MCH MCHC RDW Plt Count MPV Neut % (Auto) Lymph % (Auto) [place] % (Auto) Eos % (Auto) Baso % (Auto) Neut # (Auto) Lymph # (Auto) [place] # (Auto) Eos # (Auto) Baso # (Auto) Neutrophils % (Manual) Band Neutrophils % Lymphocytes % (Manual) Monocytes % (Manual) Myelocytes % Platelet Estimate Poikilocytosis (manual Anisocytosis (manual) Tra Cells PT 13.6 H INR 1.2 Sodium Potassium Chloride Carbon Dioxide Anion Gap BUN Creatinine Est GFR ( Amer) Est GFR (Non-Af Amer) Random Glucose Calcium Phosphorus Magnesium Total Bilirubin AST ALT Alkaline Phosphatase Total Protein Albumin Globulin Albumin/Globulin Ratio Vancomycin Trough Fingerstick Blood Sugar Results: 158 Critical Care Progress Note - Nutrition Nutrition: Nutrition Category Date Time Status Dysphagia/Modified Consistency Diet [DIET] Diets 06/18/18 Lunch Active Assessment/Plan - Assessment and Plan (Free Text) Assessment: 52 year old male with history of alcohol use disorder, seizure disorder, peptic ulcer disease, partial gastrectomy, COPD and hiatal hernia who came in for PEA cardiac arrest 06/10. Patient had a seizure and was found in PEA by EMS, coded and intubated in the field, 2x PEA arrests after arrival resolved with CPR , started on Levophed after 2nd ROSC inhouse. Patient found to have upper GI bleed, s/p bedside EGD, 1 ulcer clipped by GI. Now extubated on Precedex PRN and Librium MAYANK for agitation. Plan: Neuro: at baseline, patient is a&ox3 currently, patient is oriented to self only, not to place or time History of alcohol use disorder and seizure disorder Continue Folic acid and Thiamine given history of alcohol use Continue Keppra due to history of seizure disorder EEG (06/15) shows an abnormal awake and drowsy EEG which is very slow, indicating encephalopathy or medication effect. Recommend repeat EEG off sedation. Neuro Dr. Rubi consulted, signed off case 06/16 Cardiovascular: ECHO 06/11: EF of 45-50%, Left ventricular diastolic function is abnormal. Transmitral doppler flow pattern is grade I-abnormal relaxation pattern. trace to mild tricuspid regurgitation. Troponin negative Cardiology recs Pulmonary: Extubated, tolerating well CXR 06/20 Improving aeration in the lungs with persistent moderate pulmonary venous congestion and left lower lobe airspace disease which likely represents pneumonia. Also noted is small left pleural effusion. Chest CTA (06/14) showed NO evidence of PE. Extensive right lower lobe consolidation/atelectasis with lesser atelectasis in the right middle lobe and lingula. Multifocal ground-glass opacity. Possible infectious etiology. Fluid/ secretion in right lower lobe bronchus and possible right upper lobe bronchus. Consider aspiration as etiology. Mild mediastinal and right hilar lymphadenopathy. Continue Zosyn 3.375g IV, Vancomycin 1g IV, Diflucan 100mg IV Vanco held given trough 25.4 ABG (06/17) reviewed, adequate po2 with mild respiratory alkalosis, normal lactate Duonebs Q4 MAYANK Solumedrol 40mg IV Q8 GI: S/p gastric ulcer clipped 06/11 Protonix 40mg IV Q12 carafate 1mg PO QID GI recommends IR and surgery for further bleeding since patient is difficult to treat endoscopically. GI signed off Renal BUN 13 /Cr 0.6 Maintain euvolemia Monitor and replete electrolytes as needed, K repleted ID Afebrile, White count 11.7 Urine culture 06/13 final no growth (06/11 culture: acintobacter baumannii) 1 of 2 blood cultures positive for coag negative staph in aerobic bottle only, possible contamination but empirically covered on Vanco anyway Patient is currently on empiric antibiotic therapy due to likely aspiration pneumonia; continue Vanco, Zosyn, and Diflucan as per ID Vanco held given trough 25.4 Heme: Hb 11.7/ Hct 34.1 anticoagulation contraindicated given recent bleeding GI ulcer no active signs of bleeding appreciated at this time Endo: maintain euglycemia Integumentary: stage 2 ulcer on sacrum previously identified continue medihoney and optoform dressing as per primary team wound care has been consulted Case reviewed with Dr. Magdaleno
[2018-06-20] MEDS: Dexmedetomidine Hydrochloride 200 MCG in Sodium Chloride 0.9% 48 ML IV PRN ×2 (13:52→21:50)
[2018-06-21] MEDS: Albuterol-Ipratrop 3 mg / 0.5 (3 ml) UD INH SCH ×7 (00:25→23:42)
[2018-06-21] MEDS: MethylPREDNISolone 40 mg Vial IV SCH ×3 (00:25→17:14)
[2018-06-21] MEDS: Piperacill/Tazo 3.375gm in Dex 3.375 GM/50 ML BAG IVPB SCH ×4 (05:30→23:03)
[2018-06-21] MEDS: Dexmedetomidine Hydrochloride 200 MCG in Sodium Chloride 0.9% 48 ML IV PRN (06:00)
[2018-06-21 06:08] LABS: BASO % 0.1 % (0.0-2.0); HEMOGLOBIN 11.3 g/dL (12.0-18.0); LYMPH # 0.3 K/uL (1.0-4.3); LYMPH % 2.4 % (20.0-40.0); MEAN CORPUSCULAR HGB CONC 33.3 g/dL (33.0-37.0); MEAN PLATELET VOLUME 7.8 fL (7.2-11.7); MONO # 0.5 K/uL (0.0-0.8); MONO % 3.3 % (0.0-10.0); NEUT # 13.1 K/uL (1.8-7.0); NEUT % 94.2 % (50.0-75.0); NRBC % 0.1 % (0.0-2.0); PLATELET COUNT 271 K/uL (130-400); RBC 3.76 Mil/uL (4.40-5.90); RED CELL DISTRIBUTION WIDTH 20.7 % (11.5-14.5); WHITE BLOOD COUNT 13.9 K/uL (4.8-10.8)
[2018-06-21 06:25] LABS: ALB/GLOB RATIO 1.1 (1.0-2.1); ALT/SGPT 40 U/L (21-72); AST/SGOT 36 U/L (17-59); BLOOD UREA NITROGEN 14 mg/dL (9-20); CALCIUM 8.8 mg/dl (8.6-10.4); GFR NON-AFRICAN AMERICAN > 60
[2018-06-21 08:18] LABS: ANISOCYTOSIS MODERATE; BANDS 1 % (0-2); LYMPHOCYTE 3 % (20-40); MONOCYTE 3 % (0-10); NEUTROPHIL 93 % (50-75); PLATELET ESTIMATE NORMAL (NORMAL); TOTAL CELLS COUNTED 100
[2018-06-21] MEDS: Sucralfate 1 gm/10 ml Oral Susp UD PO SCH ×4 (09:26→23:05)
[2018-06-21] MEDS: Multiple Vitamins Oral Solution PO SCH (09:26)
[2018-06-21] MEDS: Fluconazole IV 200mg/100 ml NS 100 MG in Premixed IV 1 EA IVPB SCH (09:29)
--- NOTE | 2018-06-21 10:23 | CP.CCUPN ---
<Alvin Pantoja - Last Filed: 06/21/18 15:43> CCU Subjective - Physician Review Subjective (Free Text): ICU progress note for Dr. Morfin Patient seen and examined at bedside. Patient awake, able to mouth words. No complaints of pain at this time. He remains intermittently agitated. Not answering most questions, not following most commands. Oriented to self, but not to place or time. 06/21/18 12:41 CCU Objective - Vital Signs / Intake & Output Vital Signs (Last 4 hours): Vital Signs Temp Pulse Resp BP Pulse Ox 06/21/18 09:01 93 H 24 179/77 H 90 L 06/21/18 08:01 84 26 H 164/80 H 98 06/21/18 08:00 96.9 F L 06/21/18 07:01 92 H 29 H 149/77 97 Intake and Output (Last 8hrs): Intake & Output 06/20/18 06/21/18 06/21/18 22:59 06:59 14:59 Intake Total 402.5 363.6 180.6 Output Total 900 900 Balance -497.5 -536.4 180.6 Weight 102 lb 2 oz Intake: IV 50 52 15 Intake, IV Amount 232.5 191.6 165.6 LEFT IJ DISTAL PORT 19.5 LEFT IJ PROXIMAL PORT 150 Left Distal Port Internal 13.0 41.6 15.6 Jugular Left Proximal Port 50 150 150 Internal Jugular Oral 120 120 Output: Urine 900 900 Condom 900 900 Other: # Bowel Movements 1 - Physical Exam Head: Positive for: Atraumatic, Normocephalic Pupils: Negative for: Non-Reactive, Pinpoint Extroacular Muscles: Positive for: EOMI (Follows staff with eyes) Conjunctiva: Positive for: Normal. Negative for: Injected, Icteric Mouth: Positive for: Moist Mucous Membranes Nose (Internal): Positive for: No Active Bleeding. Negative for: Epistaxis Neck: Positive for: Normal Range of Motion, Trachea Midline. Negative for: JVD Respiratory/Chest: Positive for: Decreased Breath Sounds, Rhonchi (Thick white secretions suctioned), Other (Paradoxical breathing noted ). Negative for: Wheezes, Rales Cardiovascular: Positive for: Regular Rate and Rhythm, Normal S1, S2, Peripheal Pulses Present. Negative for: Irregular Rhythm, Tachycardic, Bradycardic Abdomen: Positive for: Normal Bowel Sounds. Negative for: Tenderness (abdomen is soft), Distention Upper Extremity: Positive for: Normal Inspection, NORMAL PULSES. Negative for: Edema Lower Extremity: Positive for: Normal Inspection, NORMAL PULSES. Negative for: Edema Neurological: Positive for: Speech Normal (Patient is able to speak after suctioning), Motor Func Grossly Intact (not grossly tremulous), Other (awake) Skin: Positive for: Warm, Dry, Normal Color Psychiatric: Positive for: Other (Awake. Oriented to self, but not to place or time - patient on Precedex and [place]. ) - Medications Active Medications: Active Medications Generic Name Dose Route Start Last Admin Trade Name Freq PRN Reason Stop Dose Admin Albuterol/Ipratropium 3 ml 06/15/18 00:00 06/21/18 07:39 Duoneb 3 Mg/0.5 Mg (3 Ml) Ud INH Not Given RQ4 MAYANK Carvedilol 3.125 mg 06/19/18 18:00 06/21/18 09:26 Coreg PO 3.125 mg BID MAYANK Administration Chlordiazepoxide 25 mg 06/18/18 01:30 06/21/18 08:49 Librium PO 25 mg Q8H MAYANK Administration Folic Acid 1 mg 06/18/18 10:00 06/21/18 09:26 Folic Acid PO 1 mg DAILY MAYANK Administration Piperacillin Sod/Tazobactam Sod 3.375 gm in 50 mls @ 100 mls/hr 06/14/18 23: 00 06/21/18 05:30 Zosyn 3.375 Gm Iv Premix IVPB 100 mls/hr Q6H MAYANK Administration Protocol Dexmedetomidine HCl 200 mcg/ 50 mls @ 2.58 mls/hr 06/17/18 11:00 06/21/18 10: 18 Sodium Chloride IV 0.2 mcg/kg/hr TITR PRN 2.58 mls/hr Agitation Titration Protocol 0.2 MCG/KG/HR Vancomycin HCl 1 gm/ Sodium 200 mls @ 133.333 mls/hr 06/18/18 21:00 06/19/18 20:44 Chloride IVPB 133.333 mls/hr Q12H MAYANK Administration Protocol Fluconazole 100 mg/ 50 mls @ 100 mls/hr 06/18/18 14:00 06/21/18 09:29 Miscellaneous IVPB 07/02/18 14:01 100 mls/hr DAILY MAYANK Administration Protocol Levetiracetam 500 mg/ Dextrose 105 mls @ 420 mls/hr 06/20/18 19:00 06/21/18 06:00 IVPB 420 mls/hr Q12H MAYANK Administration Potassium Chloride 20 meq in 100 mls @ 50 mls/hr 06/21/18 08:01 06/21/18 08: 22 Potassium Chloride 20 Meq/100 Ml IVPB 06/21/18 12:00 50 mls/hr Q2H MAYANK Administration Lisinopril 10 mg 06/19/18 15:15 06/21/18 09:26 Zestril PO 10 mg DAILY MAYANK Administration Methylprednisolone 40 mg 06/20/18 09:00 06/21/18 08:50 Solu-Medrol IV 40 mg Q8H MAYANK Administration Multivitamins/Vitamin C 5 ml 06/18/18 10:00 06/21/18 09:26 Multi-Delyn Liquid PO 5 ml DAILY MAYANK Administration Pantoprazole Sodium 40 mg 06/14/18 10:00 06/21/18 09:26 Protonix Inj IVP 40 mg Q12 MAYANK Administration Sucralfate 1 gm 06/11/18 18:00 06/21/18 09:26 Carafate Oral Susp PO 1 gm QID MAYANK Administration Thiamine HCl 100 mg 06/18/18 10:00 06/21/18 09:26 Vitamin B1 Tab PO 100 mg BID MAYANK Administration - Patient Studies Lab Studies: Lab Studies 06/21/18 06/21/18 06/21/18 Range/Units 08:23 05:57 05:57 WBC 13.9 H (4.8-10.8) K/uL RBC 3.76 L (4.40-5.90) Mil/uL Hgb 11.3 L (12.0-18.0) g/dL Hct 33.9 L (35.0-51.0) % MCV 90.0 (80.0-94.0) fL MCH 30.0 (27.0-31.0) pg MCHC 33.3 (33.0-37.0) g/dL RDW 20.7 H (11.5-14.5) % Plt Count 271 (130-400) K/uL MPV 7.8 (7.2-11.7) fL Neut % (Auto) 94.2 H (50.0-75.0) % Lymph % (Auto) 2.4 L (20.0-40.0) % Cameron % (Auto) 3.3 (0.0-10.0) % Eos % (Auto) 0.0 (0.0-4.0) % Baso % (Auto) 0.1 (0.0-2.0) % Neut # (Auto) 13.1 H (1.8-7.0) K/uL Lymph # (Auto) 0.3 L (1.0-4.3) K/uL Cameron # (Auto) 0.5 (0.0-0.8) K/uL Eos # (Auto) 0.0 (0.0-0.7) K/uL Baso # (Auto) 0.0 (0.0-0.2) K/uL Neutrophils % (Manual) 93 H (50-75) % Band Neutrophils % 1 (0-2) % Lymphocytes % (Manual) 3 L (20-40) % Monocytes % (Manual) 3 (0-10) % Platelet Estimate Normal (NORMAL) Anisocytosis (manual) Moderate Sodium 139 (132-148) mmol/L Potassium 3.3 L (3.6-5.2) mmol/L Chloride 102 (98-107) mmol/L Carbon Dioxide 33 H (22-30) mmol/L Anion Gap 7 L (10-20) BUN 14 (9-20) mg/dL Creatinine 0.7 L (0.8-1.5) mg/dL Est GFR ( Amer) > 60 Est GFR (Non-Af Amer) > 60 Random Glucose 125 H (75-110) mg/dL Calcium 8.8 (8.6-10.4) mg/dl Phosphorus 2.9 (2.5-4.5) mg/dL Magnesium 1.7 (1.6-2.3) mg/dL Total Bilirubin 0.3 (0.2-1.3) mg/dL AST 36 (17-59) U/L ALT 40 (21-72) U/L Alkaline Phosphatase 79 (38-126) U/L Total Protein 5.8 L (6.3-8.3) g/dL Albumin 3.0 L (3.5-5.0) g/dL Globulin 2.7 (2.2-3.9) gm/dL Albumin/Globulin Ratio 1.1 (1.0-2.1) Vancomycin Trough 7.9 (5.0-10.0) ug/mL Laboratory Results - last 24 hr 06/21/18 06/21/18 06/21/18 05:57 05:57 08:23 WBC 13.9 H RBC 3.76 L Hgb 11.3 L Hct 33.9 L MCV 90.0 MCH 30.0 MCHC 33.3 RDW 20.7 H Plt Count 271 MPV 7.8 Neut % (Auto) 94.2 H Lymph % (Auto) 2.4 L Cameron % (Auto) 3.3 Eos % (Auto) 0.0 Baso % (Auto) 0.1 Neut # (Auto) 13.1 H Lymph # (Auto) 0.3 L Cameron # (Auto) 0.5 Eos # (Auto) 0.0 Baso # (Auto) 0.0 Neutrophils % (Manual) 93 H Band Neutrophils % 1 Lymphocytes % (Manual) 3 L Monocytes % (Manual) 3 Platelet Estimate Normal Anisocytosis (manual) Moderate Sodium 139 Potassium 3.3 L Chloride 102 Carbon Dioxide 33 H Anion Gap 7 L BUN 14 Creatinine 0.7 L Est GFR ( Amer) > 60 Est GFR (Non-Af Amer) > 60 Random Glucose 125 H Calcium 8.8 Phosphorus 2.9 Magnesium 1.7 Total Bilirubin 0.3 AST 36 ALT 40 Alkaline Phosphatase 79 Total Protein 5.8 L Albumin 3.0 L Globulin 2.7 Albumin/Globulin Ratio 1.1 Vancomycin Trough 7.9 Fingerstick Blood Sugar Results: 158 Critical Care Progress Note - Nutrition Nutrition: Nutrition Category Date Time Status Dysphagia/Modified Consistency Diet [DIET] Diets 06/18/18 Lunch Active Assessment/Plan - Assessment and Plan (Free Text) Assessment: 52 year old male with history of alcohol use disorder, seizure disorder, peptic ulcer disease, partial gastrectomy, COPD and hiatal hernia who came in for PEA cardiac arrest 06/10. Patient had a seizure and was found in PEA by EMS, coded and intubated in the field, 2x PEA arrests after arrival resolved with CPR , started on Levophed after 2nd ROSC inhouse. Patient found to have upper GI bleed, s/p bedside EGD, 1 ulcer clipped by GI. Now extubated on Precedex PRN and Librium MAYANK for agitation. Plan: Neuro: On Precedex PRN and Librium MAYANK currently, patient is oriented to self only, not to place or time, History of alcohol use disorder and seizure disorder Continue Folic acid and Thiamine given history of alcohol use Continue Keppra due to history of seizure disorder EEG (06/15) shows an abnormal awake and drowsy EEG which is very slow, indicating encephalopathy or medication effect. Recommend repeat EEG off sedation. Neuro Dr. Rubi consulted, signed off case 06/16 Cardiovascular: ECHO 06/11: EF of 45-50%, Left ventricular diastolic function is abnormal. Transmitral doppler flow pattern is grade I-abnormal relaxation pattern. trace to mild tricuspid regurgitation. Troponin negative Cardiology recs Pulmonary: Extubated, tolerating well CXR 06/20 Improving aeration in the lungs with persistent moderate pulmonary venous congestion and left lower lobe airspace disease which likely represents pneumonia. Also noted is small left pleural effusion. Chest CTA (06/14) showed NO evidence of PE. Extensive right lower lobe consolidation/atelectasis with lesser atelectasis in the right middle lobe and lingula. Multifocal ground-glass opacity. Possible infectious etiology. Fluid/ secretion in right lower lobe bronchus and possible right upper lobe bronchus. Consider aspiration as etiology. Mild mediastinal and right hilar lymphadenopathy. Continue Zosyn 3.375g IV, Diflucan 100mg IV Vanco held ABG (06/17) reviewed, adequate po2 with mild respiratory alkalosis, normal lactate Duonebs Q4 MAYANK Solumedrol 40mg IV Q8 GI: S/p gastric ulcer clipped 06/11 Protonix 40mg IV Q12 carafate 1mg PO QID GI recommends IR and surgery for further bleeding since patient is difficult to treat endoscopically. GI signed off Renal BUN 14 /Cr 0.7 Maintain euvolemia Monitor and replete electrolytes as needed, K repleted ID Afebrile, White count 13.9 Urine culture 06/13 final no growth (06/11 culture: acintobacter baumannii) 1 of 2 blood cultures positive for coag negative staph in aerobic bottle only, possible contamination but empirically covered on Vanco anyway Patient is currently on empiric antibiotic therapy due to likely aspiration pneumonia; continue Vanco, Zosyn, and Diflucan as per ID Vanco held given trough 25.4 Heme: Hb 11.3/ Hct 33.9 anticoagulation contraindicated given recent bleeding GI ulcer no active signs of bleeding appreciated at this time Endo: maintain euglycemia Integumentary: stage 2 ulcer on sacrum previously identified continue medihoney and optoform dressing as per primary team wound care has been consulted Case reviewed with Dr. Morfin <Sandeep Morfin - Last Filed: 06/21/18 18:35> CCU Subjective - Physician Review Critical Care Time Spent (in minutes): 30 CCU Objective - Vital Signs / Intake & Output Vital Signs (Last 4 hours): Vital Signs Temp Pulse Resp BP Pulse Ox 06/21/18 18:17 97 H 06/21/18 18:01 106 H 28 H 146/78 93 L 06/21/18 17:01 96 H 22 159/82 H 98 06/21/18 16:01 109 H 25 H 161/110 H 94 L 06/21/18 16:00 98.6 F 06/21/18 15:00 102 H 32 H 147/87 97 Intake and Output (Last 8hrs): Intake & Output 06/21/18 06/21/18 06/21/18 06:59 14:59 22:59 Intake Total 363.6 347.3 72.1 Output Total 900 Balance -536.4 347.3 72.1 Weight 102 lb 2 oz Intake: IV 52 22.6 9.1 Intake, IV Amount 191.6 324.7 63.0 Left Distal Port Internal 41.6 24.7 13.0 Jugular Left Proximal Port 150 300 50 Internal Jugular Oral 120 Output: Urine 900 Condom 900 - Medications Active Medications: Active Medications Generic Name Dose Route Start Last Admin Trade Name Freq PRN Reason Stop Dose Admin Albuterol/Ipratropium 3 ml 06/15/18 00:00 06/21/18 16:01 Duoneb 3 Mg/0.5 Mg (3 Ml) Ud INH Not Given RQ4 MAYANK Carvedilol 3.125 mg 06/19/18 18:00 06/21/18 17:14 Coreg PO 3.125 mg BID MAYANK Administration Chlordiazepoxide 25 mg 06/18/18 01:30 06/21/18 17:14 Librium PO 25 mg Q8H MAYANK Administration Folic Acid 1 mg 06/18/18 10:00 06/21/18 09:26 Folic Acid PO 1 mg DAILY MAYANK Administration Piperacillin Sod/Tazobactam Sod 3.375 gm in 50 mls @ 100 mls/hr 06/14/18 23: 00 06/21/18 16:13 Zosyn 3.375 Gm Iv Premix IVPB 100 mls/hr Q6H MAYANK Administration Protocol Dexmedetomidine HCl 200 mcg/ 50 mls @ 2.58 mls/hr 06/17/18 11:00 06/21/18 16: 52 Sodium Chloride IV 0.2 mcg/kg/hr TITR PRN 2.58 mls/hr Agitation Titration Protocol 0.2 MCG/KG/HR Vancomycin HCl 1 gm/ Sodium 200 mls @ 133.333 mls/hr 06/18/18 21:00 06/19/18 20:44 Chloride IVPB 133.333 mls/hr Q12H MAYANK Administration Protocol Fluconazole 100 mg/ 50 mls @ 100 mls/hr 06/18/18 14:00 06/21/18 09:29 Miscellaneous IVPB 07/02/18 14:01 100 mls/hr DAILY MAYANK Administration Protocol Levetiracetam 500 mg/ Dextrose 105 mls @ 420 mls/hr 06/20/18 19:00 06/21/18 18:28 IVPB 420 mls/hr Q12H MAYANK Administration Lisinopril 10 mg 06/19/18 15:15 06/21/18 09:26 Zestril PO 10 mg DAILY MAYANK Administration Lorazepam 1 mg 06/21/18 16:08 06/21/18 16:23 Ativan IVP 1 mg Q4H PRN Administration Agitation Methylprednisolone 40 mg 06/20/18 09:00 06/21/18 17:14 Solu-Medrol IV 40 mg Q8H MAYANK Administration Multivitamins/Vitamin C 5 ml 06/18/18 10:00 06/21/18 09:26 Multi-Delyn Liquid PO 5 ml DAILY MAYANK Administration Pantoprazole Sodium 40 mg 06/14/18 10:00 06/21/18 09:26 Protonix Inj IVP 40 mg Q12 MAYANK Administration Sucralfate 1 gm 06/11/18 18:00 06/21/18 17:14 Carafate Oral Susp PO 1 gm QID MAYANK Administration Thiamine HCl 100 mg 06/18/18 10:00 06/21/18 17:14 Vitamin B1 Tab PO 100 mg BID MAYANK Administration - Patient Studies Lab Studies: Lab Studies 06/21/18 06/21/18 06/21/18 Range/Units 10:33 08:23 05:57 WBC (4.8-10.8) K/uL RBC (4.40-5.90) Mil/uL Hgb (12.0-18.0) g/dL Hct (35.0-51.0) % MCV (80.0-94.0) fL MCH (27.0-31.0) pg MCHC (33.0-37.0) g/dL RDW (11.5-14.5) % Plt Count (130-400) K/uL MPV (7.2-11.7) fL Neut % (Auto) (50.0-75.0) % Lymph % (Auto) (20.0-40.0) % Cameron % (Auto) (0.0-10.0) % Eos % (Auto) (0.0-4.0) % Baso % (Auto) (0.0-2.0) % Neut # (Auto) (1.8-7.0) K/uL Lymph # (Auto) (1.0-4.3) K/uL Cameron # (Auto) (0.0-0.8) K/uL Eos # (Auto) (0.0-0.7) K/uL Baso # (Auto) (0.0-0.2) K/uL Neutrophils % (Manual) (50-75) % Band Neutrophils % (0-2) % Lymphocytes % (Manual) (20-40) % Monocytes % (Manual) (0-10) % Platelet Estimate (NORMAL) Anisocytosis (manual) Sodium 139 (132-148) mmol/L Potassium 3.3 L (3.6-5.2) mmol/L Chloride 102 (98-107) mmol/L Carbon Dioxide 33 H (22-30) mmol/L Anion Gap 7 L (10-20) BUN 14 (9-20) mg/dL Creatinine 0.7 L (0.8-1.5) mg/dL Est GFR ( Amer) > 60 Est GFR (Non-Af Amer) > 60 Random Glucose 125 H (75-110) mg/dL Calcium 8.8 (8.6-10.4) mg/dl Phosphorus 2.9 (2.5-4.5) mg/dL Magnesium 1.7 (1.6-2.3) mg/dL Total Bilirubin 0.3 (0.2-1.3) mg/dL AST 36 (17-59) U/L ALT 40 (21-72) U/L Alkaline Phosphatase 79 (38-126) U/L Total Protein 5.8 L (6.3-8.3) g/dL Albumin 3.0 L (3.5-5.0) g/dL Globulin 2.7 (2.2-3.9) gm/dL Albumin/Globulin Ratio 1.1 (1.0-2.1) Procalcitonin 0.05 L (0.19-0.49) NG/ML Vancomycin Trough 7.9 (5.0-10.0) ug/mL 06/21/18 Range/Units 05:57 WBC 13.9 H (4.8-10.8) K/uL RBC 3.76 L (4.40-5.90) Mil/uL Hgb 11.3 L (12.0-18.0) g/dL Hct 33.9 L (35.0-51.0) % MCV 90.0 (80.0-94.0) fL MCH 30.0 (27.0-31.0) pg MCHC 33.3 (33.0-37.0) g/dL RDW 20.7 H (11.5-14.5) % Plt Count 271 (130-400) K/uL MPV 7.8 (7.2-11.7) fL Neut % (Auto) 94.2 H (50.0-75.0) % Lymph % (Auto) 2.4 L (20.0-40.0) % Cameron % (Auto) 3.3 (0.0-10.0) % Eos % (Auto) 0.0 (0.0-4.0) % Baso % (Auto) 0.1 (0.0-2.0) % Neut # (Auto) 13.1 H (1.8-7.0) K/uL Lymph # (Auto) 0.3 L (1.0-4.3) K/uL Cameron # (Auto) 0.5 (0.0-0.8) K/uL Eos # (Auto) 0.0 (0.0-0.7) K/uL Baso # (Auto) 0.0 (0.0-0.2) K/uL Neutrophils % (Manual) 93 H (50-75) % Band Neutrophils % 1 (0-2) % Lymphocytes % (Manual) 3 L (20-40) % Monocytes % (Manual) 3 (0-10) % Platelet Estimate Normal (NORMAL) Anisocytosis (manual) Moderate Sodium (132-148) mmol/L Potassium (3.6-5.2) mmol/L Chloride (98-107) mmol/L Carbon Dioxide (22-30) mmol/L Anion Gap (10-20) BUN (9-20) mg/dL Creatinine (0.8-1.5) mg/dL Est GFR ( Amer) Est GFR (Non-Af Amer) Random Glucose (75-110) mg/dL Calcium (8.6-10.4) mg/dl Phosphorus (2.5-4.5) mg/dL Magnesium (1.6-2.3) mg/dL Total Bilirubin (0.2-1.3) mg/dL AST (17-59) U/L ALT (21-72) U/L Alkaline Phosphatase (38-126) U/L Total Protein (6.3-8.3) g/dL Albumin (3.5-5.0) g/dL Globulin (2.2-3.9) gm/dL Albumin/Globulin Ratio (1.0-2.1) Procalcitonin (0.19-0.49) NG/ML Vancomycin Trough (5.0-10.0) ug/mL Laboratory Results - last 24 hr 06/21/18 06/21/18 06/21/18 05:57 05:57 08:23 WBC 13.9 H RBC 3.76 L Hgb 11.3 L Hct 33.9 L MCV 90.0 MCH 30.0 MCHC 33.3 RDW 20.7 H Plt Count 271 MPV 7.8 Neut % (Auto) 94.2 H Lymph % (Auto) 2.4 L Cameron % (Auto) 3.3 Eos % (Auto) 0.0 Baso % (Auto) 0.1 Neut # (Auto) 13.1 H Lymph # (Auto) 0.3 L Cameron # (Auto) 0.5 Eos # (Auto) 0.0 Baso # (Auto) 0.0 Neutrophils % (Manual) 93 H Band Neutrophils % 1 Lymphocytes % (Manual) 3 L Monocytes % (Manual) 3 Platelet Estimate Normal Anisocytosis (manual) Moderate Sodium 139 Potassium 3.3 L Chloride 102 Carbon Dioxide 33 H Anion Gap 7 L BUN 14 Creatinine 0.7 L Est GFR ( Amer) > 60 Est GFR (Non-Af Amer) > 60 Random Glucose 125 H Calcium 8.8 Phosphorus 2.9 Magnesium 1.7 Total Bilirubin 0.3 AST 36 ALT 40 Alkaline Phosphatase 79 Total Protein 5.8 L Albumin 3.0 L Globulin 2.7 Albumin/Globulin Ratio 1.1 Procalcitonin Vancomycin Trough 7.9 06/21/18 10:33 WBC RBC Hgb Hct MCV MCH MCHC RDW Plt Count MPV Neut % (Auto) Lymph % (Auto) Cameron % (Auto) Eos % (Auto) Baso % (Auto) Neut # (Auto) Lymph # (Auto) Cameron # (Auto) Eos # (Auto) Baso # (Auto) Neutrophils % (Manual) Band Neutrophils % Lymphocytes % (Manual) Monocytes % (Manual) Platelet Estimate Anisocytosis (manual) Sodium Potassium Chloride Carbon Dioxide Anion Gap BUN Creatinine Est GFR ( Amer) Est GFR (Non-Af Amer) Random Glucose Calcium Phosphorus Magnesium Total Bilirubin AST ALT Alkaline Phosphatase Total Protein Albumin Globulin Albumin/Globulin Ratio Procalcitonin 0.05 L Vancomycin Trough Critical Care Progress Note - Nutrition Nutrition: Nutrition Category Date Time Status Dysphagia/Modified Consistency Diet [DIET] Diets 06/18/18 Lunch Active Attending/Attestation - Attestation I have personally seen and examined this patient.: Yes I have fully participated in the care of the patient.: Yes I have reviewed all pertinent clinical information: Yes Notes (Text): 06/21/18 18:33 patient seen and examined in the intensive care unit. Copious amount of secretions Patient confused and on Precedex Continue antibiotics for pneumonia Pulmonary toilet and chest PT NG tube feeding/TPN
--- NOTE | 2018-06-21 18:25 | CP.PCM.PN ---
Subjective - Date & Time of Evaluation Date of Evaluation: 06/21/18 Time of Evaluation: 18:22 - Subjective Subjective: confused tachycardic tachypnic Objective - Vital Signs/Intake and Output Vital Signs (last 24 hours): Temp Pulse Resp BP Pulse Ox 98.6 F 97 H 28 H 146/78 93 L 06/21/18 16:00 06/21/18 18:17 06/21/18 18:01 06/21/18 18:01 06/21/18 18:01 Intake and Output: 06/21/18 06/21/18 06:59 18:59 Intake Total 600.5 419.4 Output Total 900 Balance -299.5 419.4 - Medications Medications: Current Medications Albuterol/Ipratropium (Duoneb 3 Mg/0.5 Mg (3 Ml) Ud) 3 ml INH RQ4 [facility] Last Admin: 06/21/18 16:01 Dose: Not Given Carvedilol (Coreg) 3.125 mg PO BID [facility] Last Admin: 06/21/18 17:14 Dose: 3.125 mg Chlordiazepoxide (Librium) 25 mg PO Q8H [facility] Last Admin: 06/21/18 17:14 Dose: 25 mg Folic Acid (Folic Acid) 1 mg PO DAILY [facility] Last Admin: 06/21/18 09:26 Dose: 1 mg Piperacillin Sod/Tazobactam Sod (Zosyn 3.375 Gm Iv Premix) 3.375 gm in 50 mls @ 100 mls/hr IVPB Q6H [facility] PRN Reason: Protocol Last Admin: 06/21/18 16:13 Dose: 100 mls/hr Dexmedetomidine HCl 200 mcg/ (Sodium Chloride) 50 mls @ 2.58 mls/hr IV TITR PRN ; Protocol; 0.2 MCG/KG/HR PRN Reason: Agitation Last Titration: 06/21/18 16:52 Dose: 0.2 mcg/kg/hr, 2.58 mls/hr Vancomycin HCl 1 gm/ Sodium (Chloride) 200 mls @ 133.333 mls/hr IVPB Q12H [facility] PRN Reason: Protocol Last Admin: 06/19/18 20:44 Dose: 133.333 mls/hr Fluconazole 100 mg/ (Miscellaneous) 50 mls @ 100 mls/hr IVPB DAILY [facility] PRN Reason: Protocol Stop: 07/02/18 14:01 Last Admin: 06/21/18 09:29 Dose: 100 mls/hr Levetiracetam 500 mg/ Dextrose 105 mls @ 420 mls/hr IVPB Q12H [facility] Last Admin: 06/21/18 06:00 Dose: 420 mls/hr Lisinopril (Zestril) 10 mg PO DAILY [facility] Last Admin: 06/21/18 09:26 Dose: 10 mg Lorazepam (Ativan) 1 mg IVP Q4H PRN PRN Reason: Agitation Last Admin: 06/21/18 16:23 Dose: 1 mg Methylprednisolone (Solu-Medrol) 40 mg IV Q8H [facility] Last Admin: 06/21/18 17:14 Dose: 40 mg Multivitamins/Vitamin C (Multi-Delyn Liquid) 5 ml PO DAILY [facility] Last Admin: 06/21/18 09:26 Dose: 5 ml Pantoprazole Sodium (Protonix Inj) 40 mg IVP Q12 [facility] Last Admin: 06/21/18 09:26 Dose: 40 mg Sucralfate (Carafate Oral Susp) 1 gm PO QID [facility] Last Admin: 06/21/18 17:14 Dose: 1 gm Thiamine HCl (Vitamin B1 Tab) 100 mg PO BID [facility] Last Admin: 06/21/18 17:14 Dose: 100 mg - Labs Labs: 06/21/18 05:57 06/21/18 05:57 PT 13.6 SECONDS (9.7-12.2) H 06/20/18 10:09 INR 1.2 06/20/18 10:09 APTT 40 SECONDS (21-34) H 06/10/18 23:37 - Constitutional Appears: In Acute Distress, Confused - Head Exam Head Exam: ATRAUMATIC - Eye Exam Eye Exam: Normal appearance - ENT Exam ENT Exam: Mucous Membranes Dry - Respiratory Exam Respiratory Exam: Accessory Muscle Use, Rhonchi, Respiratory Distress. absent: Clear to Ausculation Bilateral, NORMAL BREATHING PATTERN - Cardiovascular Exam Cardiovascular Exam: Tachycardia - GI/Abdominal Exam GI & Abdominal Exam: Soft, Normal Bowel Sounds. absent: Tenderness - Neurological Exam Neurological Exam: Alert, Awake. absent: Oriented x3 - Psychiatric Exam Psychiatric exam: Anxious - Skin Skin Exam: Diaphoretic Assessment and Plan - Assessment and Plan (Free Text) Assessment: spoke with icu physician and agricultural engineering teacher patient in resp distress we will initiate bipap with the caveat that he has high secretions may require reintubation he was extubated recently rn also tried pulm toilet with suctioning Continue ICU care Assessment/Plan 1). Cardiopulmonary Arrest Assessment/Plan * Cardiology Dr. Iglesias senior information developer-->help appreciated * PEA s/p ROSC NSR * Echocardiogram (06/12/18): ejection fraction: 45-50%, left ventricular diastolic function is abnormal. left atrium size looks normal right atrium size looks normal. trace to mild tricupsid regurgitaton * Solumedrol 40 mg IV Q6H (since 06/17/18) * Taper to 40mg IV Q8H 2). Hyponatremia Assessment/Plan * Nephrology Dr. Shafer on board-->help appreciated * Secondary to Alcohol Abuse * Received 3 NS boluses in ER * Seizure precautions * Normalized 3). Hypokalemia/Hypomagnesemia/Hypophosphotemia Assessment/Plan * Replete as needed 4). Metabolic Acidosis Assessment/Plan * Likely secondary to the Cadriopulmonary Arrest, GI bleed, Respiratory Distress * Resolved 5). Seizure Assessment/Plan * Neurology Dr. Richie Rubi on board-->help appreciated * Risk factor: heavy alcohol use and hyponatremia, hypomagnesium * Head CT (06/11/18): no acute intracranial abnormality. Chronic microvascular ischemic changes. sinus mucosal disease as above * He has a history of alcohol withdrawal seizures * Patient is on Precedex * Will need to monitor mental status and agitation * Keppra 500 mg IV Q12H * Recommend EEG if mental status does not improve after extubation and once off precedex 6). Anemia likely secondary to GI Bleed History of Peptic Ulcer Disease Bleeding Ulcer Assessment/Plan * GI Dr. Ho on consult help appreciated * CT Chest/abdomen/pelvis (06/12/18): distended bowel suggesting an ileus. Markedly limited evaluation of the bowel without oral or intravenous contrast. Suggestion of prior Bilroth 2 procedure. Fluid filled dilatation of small bowel andproximal colon. Fluid filled dilatation of the small bowel and prozimal colon. Fluid in the descending colon without a sharp transition sozne. Portions of transverse colon were not well visualized. * Monitor H/H and transfuse as needed * Carafate 1g qid * S/P EGD POD2: 2 anastomotic ulcers with visible vessel s/p APC and 5 clips, one ulcer with visible vessel and adherent clot was not intervened on due to adverse location--->If pt develops further bleeding will need IR and Surgery on board, difficult to treat endoscopically * Monitor H/H: received 2 units on 06/16/18 and is currently stable * No NSAIDS and strong history of alcohol abuse 7). Hypocalcemia Assessment/Plan * Monitor 8). Acute Respiratory Failure Assessment/Plan * Extubated 06/12/18 and Re-intubated on 06/14/18 and extubated 06/17/18 * Management per ICU * Noted rib fractures * Patient is on Zosyn and held Vancomycin given elevated trough to cover for bilateral pneumonia * Taper Solumedrol 40 mg IV Q8H * Patient has productive cough. 9) Open Wounds on Sacrum Stage II Assessment/Plan * Turn [id number] * MediHoney with Optifoam Dressing 10) Bilateral Anterior Rib and Sternal Fractures Assessment/Plan * Noted on CT Chest * Secondary to CPR given cardiopulmonary arrest 11) Pneumonia Assessment/Plan * CT Chest 06/11/18: thinned walled cavity in the right upper lobe which may be the sequelae of prior infection 5mm subpleural nodule within the anterior right middle lobe. Focal consolidation within the inferior right middle lobe. Focal consolidation within the right lower lobe. Patchy ground glass opacities in both lungs which and nonspecific but may secondary to alectasis versus contusion versus pneumonitis. * Zosyn 3.375g IV Q8H (active since 06/11/18) and Vancomycin 1 gm IV Q12H ( active since 06/14/18) * Vancomycin trough is within range of 15 to 20. Next Vancomycin Trough 06/20/18 at 8:30 PM * Hold Vancomcyin today given elevated vancomycin trough * Tracheal Aspirate 06/16/18 shows Yeast Species and Fluconazole 100 mg IV 1x/ day has been ordered through 07/02/18 * NO fevers and vitals are stable 12) Systolic and Diastolic Heart Failure * Echocardiogram 06/12/18 shows EF at 45-50%, left ventricular diastolic function abnormal with Grade I abnormal relaxation pattern, trace to mild ticuspid regurgitation * Lisinopril 10 mg PO 1x/day * Coreg 3.125 mg PO 2x/day * F/U any recommendations from Cardiology Dr. Iglesias 13) Urinary tract infection * Zosyn 3.375g IV Q8H (active since 06/11/18) * Repeat urine culture 06/13/18 showed NO growth 14) Bacteremia * Repeat blood culture 06/12/18 is negative at 5 days 15) Alcoholism * Hx heavy use * On Precedex * Librium 25 mg PO Q8H * MVI PO 1x/day 16) Prophylactic measure * Protonix 40 mg IV Q12H * Lactobacillus 1 cap PO 2x/day * Chemical anticoagulation held secondary to GI bleed * Turn [id number] * Order Physical Therapy evaluation when patient able to follow instructions * Aspiration precautions * Seizure precautions * Wound care on board
[2018-06-22] MEDS: MethylPREDNISolone 40 mg Vial IV SCH ×3 (00:49→17:00)
[2018-06-22] MEDS: Dexmedetomidine Hydrochloride 200 MCG in Sodium Chloride 0.9% 48 ML IV PRN (01:34)
[2018-06-22] MEDS: Albuterol-Ipratrop 3 mg / 0.5 (3 ml) UD INH SCH ×5 (03:13→19:34)
[2018-06-22] MEDS: Piperacill/Tazo 3.375gm in Dex 3.375 GM/50 ML BAG IVPB SCH ×4 (05:26→22:33)
[2018-06-22 06:20] LABS: BASO % 0.1 % (0.0-2.0); HEMOGLOBIN 11.7 g/dL (12.0-18.0); LYMPH # 0.3 K/uL (1.0-4.3); LYMPH % 3.3 % (20.0-40.0); MEAN CELL VOLUME 89.2 fL (80.0-94.0); MEAN CORPUSCULAR HEMOGLOBIN 30.3 pg (27.0-31.0); MEAN PLATELET VOLUME 7.7 fL (7.2-11.7); MONO # 0.3 K/uL (0.0-0.8); NEUT # 9.4 K/uL (1.8-7.0); NEUT % 93.6 % (50.0-75.0); NRBC % 0.2 % (0.0-2.0); PLATELET COUNT 303 K/uL (130-400); RBC 3.86 Mil/uL (4.40-5.90); RED CELL DISTRIBUTION WIDTH 20.3 % (11.5-14.5); WHITE BLOOD COUNT 10.1 K/uL (4.8-10.8)
[2018-06-22 06:37] LABS: ALBUMIN 2.9 g/dL (3.5-5.0); ALT/SGPT 54 U/L (21-72); AST/SGOT 40 U/L (17-59); BLOOD UREA NITROGEN 17 mg/dL (9-20); CALCIUM 8.7 mg/dl (8.6-10.4); GFR NON-AFRICAN AMERICAN > 60
[2018-06-22 08:51] LABS: ANISOCYTOSIS MODERATE; BANDS 1 % (0-2); BURR CELLS SLIGHT; LYMPHOCYTE 5 % (20-40); METAMYELOCYTE 1 % (0-0); MONOCYTE 3 % (0-10); NEUTROPHIL 90 % (50-75); PLATELET ESTIMATE NORMAL (NORMAL); TOTAL CELLS COUNTED 100
[2018-06-22] MEDS: Fluconazole IV 200mg/100 ml NS 100 MG in Premixed IV 1 EA IVPB SCH (09:00)
[2018-06-22] MEDS: Multiple Vitamins Oral Solution PO SCH (09:05)
[2018-06-22] MEDS: Sucralfate 1 gm/10 ml Oral Susp UD PO SCH ×4 (09:05→21:59)
--- NOTE | 2018-06-22 09:31 | RAD ---
Date of service: 06/22/2018 HISTORY: pneumonia COMPARISON: Portable chest 06/20/2018. FINDINGS: LUNGS: Improved aeration is seen the left base with no definite active pulmonary airspace disease appreciated bilaterally. Linear atelectasis remains at the inferior right lung zone. Improved aeration is seen bilaterally with improved history effort noted throughout. PLEURA: Trace left pleural effusion in question with none on the right. No pneumothorax bilaterally. CARDIOVASCULAR: Cardiac size stable remaining normal. No definite pulmonary vascular congestion. Left central venous line is unchanged in position. OSSEOUS STRUCTURES: No significant abnormalities. VISUALIZED UPPER ABDOMEN: Normal. OTHER FINDINGS: None. IMPRESSION: Apparent resolution of left basilar airspace disease with trace of pleural effusion question. Improved aeration is appreciate diffusely bilaterally. No pulmonary vascular congestion.
--- NOTE | 2018-06-22 12:32 | CP.CCUPN ---
<Alvin Pantoja - Last Filed: 06/22/18 13:01> CCU Subjective - Physician Review Subjective (Free Text): ICU progress note Patient seen and examined at bedside. Patient awake, eating food, able to speak but noted to have thick secretions. Oriented to self, but not to place or time. CCU Objective - Vital Signs / Intake & Output Vital Signs (Last 4 hours): Vital Signs Pulse Resp BP Pulse Ox 06/22/18 12:07 104 H 23 172/100 H 96 06/22/18 12:01 104 H 26 H 173/95 H 96 06/22/18 12:00 101 H 28 H 95 06/22/18 11:20 94 H 20 131/100 H 98 06/22/18 11:10 96 H 26 H 172/101 H 97 06/22/18 11:01 96 H 26 H 176/107 H 98 06/22/18 11:00 99 H 20 97 06/22/18 10:40 95 06/22/18 10:01 101 H 26 H 157/91 H 90 L 06/22/18 10:00 101 H 24 92 L 06/22/18 09:01 115 H 21 165/81 H 93 L 06/22/18 09:00 116 H 37 H 94 L 06/22/18 08:55 113 H 30 H 165/102 H 98 Intake and Output (Last 8hrs): Intake & Output 06/21/18 06/22/18 06/22/18 22:59 06:59 14:59 Intake Total 182.5 100.6 157.8 Output Total 850 1000 Balance -667.5 -899.4 157.8 Weight 110 lb 4 oz Intake: IV 9.1 36.3 Intake, IV Amount 173.4 14.3 157.8 Left Distal Port Internal 23.4 14.3 7.8 Jugular Left Proximal Port 150 150 Internal Jugular Oral 50 Output: Urine 850 1000 Condom 850 1000 Emesis 0 Other: # Bowel Movements 1 0 - Physical Exam Head: Positive for: Atraumatic, Normocephalic Pupils: Positive for: PERRL. Negative for: Non-Reactive, Pinpoint Extroacular Muscles: Positive for: EOMI (Follows staff with eyes) Conjunctiva: Positive for: Normal. Negative for: Injected, Icteric Mouth: Positive for: Moist Mucous Membranes Nose (Internal): Positive for: No Active Bleeding. Negative for: Epistaxis Neck: Positive for: Normal Range of Motion, Trachea Midline. Negative for: JVD Respiratory/Chest: Positive for: Rhonchi (Thick white secretions suctioned). Negative for: Wheezes, Rales Cardiovascular: Positive for: Regular Rate and Rhythm, Normal S1, S2, Peripheal Pulses Present. Negative for: Irregular Rhythm, Tachycardic, Bradycardic Abdomen: Positive for: Normal Bowel Sounds. Negative for: Tenderness (abdomen is soft), Distention Upper Extremity: Positive for: Normal Inspection, NORMAL PULSES. Negative for: Edema Lower Extremity: Positive for: Normal Inspection, NORMAL PULSES. Negative for: Edema Neurological: Positive for: Speech Normal (Patient is able to speak after suctioning), Motor Func Grossly Intact (not grossly tremulous), Other (awake) Skin: Positive for: Warm, Dry, Normal Color Psychiatric: Positive for: Alert, Other (Awake. Oriented to self, but not to place or time - patient on Precedex and Librium) - Medications Active Medications: Active Medications Generic Name Dose Route Start Last Admin Trade Name Freq PRN Reason Stop Dose Admin Albuterol/Ipratropium 3 ml 06/15/18 00:00 06/22/18 11:28 Duoneb 3 Mg/0.5 Mg (3 Ml) Ud INH 3 ml RQ4 MAYANK Administration Carvedilol 3.125 mg 06/19/18 18:00 06/22/18 09:05 Coreg PO 3.125 mg BID MAYANK Administration Folic Acid 1 mg 06/18/18 10:00 06/22/18 09:05 Folic Acid PO 1 mg DAILY MAYANK Administration Piperacillin Sod/Tazobactam Sod 3.375 gm in 50 mls @ 100 mls/hr 06/14/18 23: 00 06/22/18 10:00 Zosyn 3.375 Gm Iv Premix IVPB 100 mls/hr Q6H MAYANK Administration Protocol Vancomycin HCl 1 gm/ Sodium 200 mls @ 133.333 mls/hr 06/18/18 21:00 06/19/18 20:44 Chloride IVPB 133.333 mls/hr Q12H MAYANK Administration Protocol Fluconazole 100 mg/ 50 mls @ 100 mls/hr 06/18/18 14:00 06/22/18 09:00 Miscellaneous IVPB 07/02/18 14:01 100 mls/hr DAILY MAYANK Administration Protocol Levetiracetam 500 mg/ Dextrose 105 mls @ 420 mls/hr 06/20/18 19:00 06/22/18 06:28 IVPB 420 mls/hr Q12H MAYANK Administration Lisinopril 10 mg 06/19/18 15:15 06/22/18 09:05 Zestril PO 10 mg DAILY MAYANK Administration Lorazepam 1 mg 06/21/18 16:08 06/21/18 16:23 Ativan IVP 1 mg Q4H PRN Administration Agitation Methylprednisolone 40 mg 06/20/18 09:00 06/22/18 09:05 Solu-Medrol IV 40 mg Q8H MAYANK Administration Multivitamins/Vitamin C 5 ml 06/18/18 10:00 06/22/18 09:05 Multi-Delyn Liquid PO 5 ml DAILY MAYNAK Administration Pantoprazole Sodium 40 mg 06/14/18 10:00 06/22/18 09:05 Protonix Inj IVP 40 mg Q12 MAYANK Administration Sucralfate 1 gm 06/11/18 18:00 06/22/18 09:05 Carafate Oral Susp PO 1 gm QID MAYANK Administration Thiamine HCl 100 mg 06/18/18 10:00 06/22/18 09:05 Vitamin B1 Tab PO 100 mg BID MAYANK Administration - Patient Studies Lab Studies: Lab Studies 06/22/18 06/22/18 06/21/18 Range/Units 06:13 06:13 10:33 WBC 10.1 (4.8-10.8) K/uL RBC 3.86 L (4.40-5.90) Mil/uL Hgb 11.7 L (12.0-18.0) g/dL Hct 34.4 L (35.0-51.0) % MCV 89.2 (80.0-94.0) fL MCH 30.3 (27.0-31.0) pg MCHC 34.0 (33.0-37.0) g/dL RDW 20.3 H (11.5-14.5) % Plt Count 303 (130-400) K/uL MPV 7.7 (7.2-11.7) fL Neut % (Auto) 93.6 H (50.0-75.0) % Lymph % (Auto) 3.3 L (20.0-40.0) % [place] % (Auto) 3.0 (0.0-10.0) % Eos % (Auto) 0.0 (0.0-4.0) % Baso % (Auto) 0.1 (0.0-2.0) % Neut # (Auto) 9.4 H (1.8-7.0) K/uL Lymph # (Auto) 0.3 L (1.0-4.3) K/uL [place] # (Auto) 0.3 (0.0-0.8) K/uL Eos # (Auto) 0.0 (0.0-0.7) K/uL Baso # (Auto) 0.0 (0.0-0.2) K/uL Neutrophils % (Manual) 90 H (50-75) % Band Neutrophils % 1 (0-2) % Lymphocytes % (Manual) 5 L (20-40) % Monocytes % (Manual) 3 (0-10) % Metamyelocytes % 1 H (0-0) % Platelet Estimate Normal (NORMAL) Anisocytosis (manual) Moderate Tra Cells Slight Sodium 139 (132-148) mmol/L Potassium 3.8 (3.6-5.2) mmol/L Chloride 102 (98-107) mmol/L Carbon Dioxide 29 (22-30) mmol/L Anion Gap 12 (10-20) BUN 17 (9-20) mg/dL Creatinine 0.7 L (0.8-1.5) mg/dL Est GFR ( Amer) > 60 Est GFR (Non-Af Amer) > 60 Random Glucose 113 H (75-110) mg/dL Calcium 8.7 (8.6-10.4) mg/dl Phosphorus 3.6 (2.5-4.5) mg/dL Magnesium 1.6 (1.6-2.3) mg/dL Total Bilirubin 0.5 (0.2-1.3) mg/dL AST 40 (17-59) U/L ALT 54 (21-72) U/L Alkaline Phosphatase 91 (38-126) U/L Total Protein 6.0 L (6.3-8.3) g/dL Albumin 2.9 L (3.5-5.0) g/dL Globulin 3.0 (2.2-3.9) gm/dL Albumin/Globulin Ratio 1.0 (1.0-2.1) Procalcitonin 0.05 L (0.19-0.49) NG/ML Laboratory Results - last 24 hr 06/21/18 06/22/18 06/22/18 10:33 06:13 06:13 WBC 10.1 RBC 3.86 L Hgb 11.7 L Hct 34.4 L MCV 89.2 MCH 30.3 MCHC 34.0 RDW 20.3 H Plt Count 303 MPV 7.7 Neut % (Auto) 93.6 H Lymph % (Auto) 3.3 L [place] % (Auto) 3.0 Eos % (Auto) 0.0 Baso % (Auto) 0.1 Neut # (Auto) 9.4 H Lymph # (Auto) 0.3 L [place] # (Auto) 0.3 Eos # (Auto) 0.0 Baso # (Auto) 0.0 Neutrophils % (Manual) 90 H Band Neutrophils % 1 Lymphocytes % (Manual) 5 L Monocytes % (Manual) 3 Metamyelocytes % 1 H Platelet Estimate Normal Anisocytosis (manual) Moderate Tra Cells Slight Sodium 139 Potassium 3.8 Chloride 102 Carbon Dioxide 29 Anion Gap 12 BUN 17 Creatinine 0.7 L Est GFR ( Amer) > 60 Est GFR (Non-Af Amer) > 60 Random Glucose 113 H Calcium 8.7 Phosphorus 3.6 Magnesium 1.6 Total Bilirubin 0.5 AST 40 ALT 54 Alkaline Phosphatase 91 Total Protein 6.0 L Albumin 2.9 L Globulin 3.0 Albumin/Globulin Ratio 1.0 Procalcitonin 0.05 L Fingerstick Blood Sugar Results: 158 Critical Care Progress Note - Nutrition Nutrition: Nutrition Category Date Time Status Dysphagia/Modified Consistency Diet [DIET] Diets 06/18/18 Lunch Active Assessment/Plan - Assessment and Plan (Free Text) Assessment: 52 year old male with history of alcohol use disorder, seizure disorder, peptic ulcer disease, partial gastrectomy, COPD and hiatal hernia who came in for PEA cardiac arrest 06/10. Patient had a seizure and was found in PEA by EMS, coded and intubated in the field, 2x PEA arrests after arrival resolved with CPR, started on Levophed after 2nd ROSC inhouse. Patient found to have upper GI bleed , s/p bedside EGD, 1 ulcer clipped by GI. Now extubated on Precedex PRN and Librium MAYAKN for agitation. Plan: Neuro: 06/21 Discontinue Precedex and Librium Ativan 1mg Q4 PRN currently, patient is oriented to self only, not to place or time History of alcohol use disorder and seizure disorder Continue Folic acid and Thiamine given history of alcohol use Continue Keppra due to history of seizure disorder EEG (06/15) shows an abnormal awake and drowsy EEG which is very slow, indicating encephalopathy or medication effect. Recommend repeat EEG off sedation. Neuro Dr. Rubi consulted, signed off case 06/16 Cardiovascular: ECHO 06/11: EF of 45-50%, Left ventricular diastolic function is abnormal. Transmitral doppler flow pattern is grade I-abnormal relaxation pattern. trace to mild tricuspid regurgitation. Troponin negative Coreg 3.125mg BID Lisinopril 10mg daily Cardiology Dr. Iglesias consulted, recs appreciated Pulmonary: Extubated, tolerating well On O2 4L NC, oxygenating well. CXR 06/22 Apparent resolution of left basilar airspace disease with trace of pleural effusion question. Improved aeration is appreciate diffusely bilaterally. No pulmonary vascular congestion. Chest CTA (06/14) showed NO evidence of PE. Extensive right lower lobe consolidation/atelectasis with lesser atelectasis in the right middle lobe and lingula. Multifocal ground-glass opacity. Possible infectious etiology. Fluid/ secretion in right lower lobe bronchus and possible right upper lobe bronchus. Consider aspiration as etiology. Mild mediastinal and right hilar lymphadenopathy. Continue Zosyn 3.375g IV Discontinue Diflucan 100mg IV Vanco held Duonebs Q4 MAYANK Solumedrol 40mg IV Q8 GI: S/p gastric ulcer clipped 06/11 Protonix 40mg IV Q12 carafate 1mg PO QID GI recommends IR and surgery for further bleeding since patient is difficult to treat endoscopically. GI signed off Renal BUN 17 /Cr 0.7 Maintain euvolemia Monitor and replete electrolytes as needed Nephrology Dr. Shafer, help appreciated ID Afebrile, White count 10.1 Urine culture 06/13 final no growth (06/11 culture: acintobacter baumannii) 1 of 2 blood cultures positive for coag negative staph in aerobic bottle only, possible contamination but empirically covered on Vanco anyway Patient is currently on empiric antibiotic therapy due to likely aspiration pneumonia; continue Zosyn Discontinue Diflucan Vanco held given trough 25.4 Heme: Hb 11.7/ Hct 34.4 anticoagulation contraindicated given recent bleeding GI ulcer no active signs of bleeding appreciated at this time Endo: maintain euglycemia Integumentary: stage 2 ulcer on sacrum previously identified continue medihoney and optoform dressing as per primary team wound care has been consulted Case discussed with Dr. Winters <Martinez Winters - Last Filed: 06/22/18 13:28> CCU Objective - Vital Signs / Intake & Output Vital Signs (Last 4 hours): Vital Signs Pulse Resp BP Pulse Ox 06/22/18 12:07 104 H 23 172/100 H 96 06/22/18 12:01 104 H 26 H 173/95 H 96 06/22/18 12:00 101 H 28 H 95 06/22/18 11:20 94 H 20 131/100 H 98 06/22/18 11:10 96 H 26 H 172/101 H 97 06/22/18 11:01 96 H 26 H 176/107 H 98 06/22/18 11:00 99 H 20 97 06/22/18 10:40 95 06/22/18 10:01 101 H 26 H 157/91 H 90 L 06/22/18 10:00 101 H 24 92 L Intake and Output (Last 8hrs): Intake & Output 06/21/18 06/22/18 06/22/18 22:59 06:59 14:59 Intake Total 182.5 100.6 157.8 Output Total 850 1000 Balance -667.5 -899.4 157.8 Weight 110 lb 4 oz Intake: IV 9.1 36.3 Intake, IV Amount 173.4 14.3 157.8 Left Distal Port Internal 23.4 14.3 7.8 Jugular Left Proximal Port 150 150 Internal Jugular Oral 50 Output: Urine 850 1000 Condom 850 1000 Emesis 0 Other: # Bowel Movements 1 0 - Medications Active Medications: Active Medications Generic Name Dose Route Start Last Admin Trade Name Freq PRN Reason Stop Dose Admin Albuterol/Ipratropium 3 ml 06/15/18 00:00 06/22/18 11:28 Duoneb 3 Mg/0.5 Mg (3 Ml) Ud INH 3 ml RQ4 MAYANK Administration Carvedilol 3.125 mg 06/19/18 18:00 06/22/18 09:05 Coreg PO 3.125 mg BID MAYANK Administration Folic Acid 1 mg 06/18/18 10:00 06/22/18 09:05 Folic Acid PO 1 mg DAILY MAYANK Administration Piperacillin Sod/Tazobactam Sod 3.375 gm in 50 mls @ 100 mls/hr 06/14/18 23: 00 06/22/18 10:00 Zosyn 3.375 Gm Iv Premix IVPB 100 mls/hr Q6H MAYANK Administration Protocol Vancomycin HCl 1 gm/ Sodium 200 mls @ 133.333 mls/hr 06/18/18 21:00 06/19/18 20:44 Chloride IVPB 133.333 mls/hr Q12H MAYANK Administration Protocol Levetiracetam 500 mg/ Dextrose 105 mls @ 420 mls/hr 06/20/18 19:00 06/22/18 06:28 IVPB 420 mls/hr Q12H MAYANK Administration Lisinopril 10 mg 06/19/18 15:15 06/22/18 09:05 Zestril PO 10 mg DAILY MAYANK Administration Lorazepam 1 mg 06/21/18 16:08 06/21/18 16:23 Ativan IVP 1 mg Q4H PRN Administration Agitation Methylprednisolone 40 mg 06/20/18 09:00 06/22/18 09:05 Solu-Medrol IV 40 mg Q8H MAYANK Administration Multivitamins/Vitamin C 5 ml 06/18/18 10:00 06/22/18 09:05 Multi-Delyn Liquid PO 5 ml DAILY MAYANK Administration Pantoprazole Sodium 40 mg 06/14/18 10:00 06/22/18 09:05 Protonix Inj IVP 40 mg Q12 MAYANK Administration Sucralfate 1 gm 06/11/18 18:00 06/22/18 09:05 Carafate Oral Susp PO 1 gm QID MAYANK Administration Thiamine HCl 100 mg 06/18/18 10:00 06/22/18 09:05 Vitamin B1 Tab PO 100 mg BID MAYANK Administration - Patient Studies Lab Studies: Lab Studies 06/22/18 06/22/18 Range/Units 06:13 06:13 WBC 10.1 (4.8-10.8) K/uL RBC 3.86 L (4.40-5.90) Mil/uL Hgb 11.7 L (12.0-18.0) g/dL Hct 34.4 L (35.0-51.0) % MCV 89.2 (80.0-94.0) fL MCH 30.3 (27.0-31.0) pg MCHC 34.0 (33.0-37.0) g/dL RDW 20.3 H (11.5-14.5) % Plt Count 303 (130-400) K/uL MPV 7.7 (7.2-11.7) fL Neut % (Auto) 93.6 H (50.0-75.0) % Lymph % (Auto) 3.3 L (20.0-40.0) % [place] % (Auto) 3.0 (0.0-10.0) % Eos % (Auto) 0.0 (0.0-4.0) % Baso % (Auto) 0.1 (0.0-2.0) % Neut # (Auto) 9.4 H (1.8-7.0) K/uL Lymph # (Auto) 0.3 L (1.0-4.3) K/uL [place] # (Auto) 0.3 (0.0-0.8) K/uL Eos # (Auto) 0.0 (0.0-0.7) K/uL Baso # (Auto) 0.0 (0.0-0.2) K/uL Neutrophils % (Manual) 90 H (50-75) % Band Neutrophils % 1 (0-2) % Lymphocytes % (Manual) 5 L (20-40) % Monocytes % (Manual) 3 (0-10) % Metamyelocytes % 1 H (0-0) % Platelet Estimate Normal (NORMAL) Anisocytosis (manual) Moderate Tra Cells Slight Sodium 139 (132-148) mmol/L Potassium 3.8 (3.6-5.2) mmol/L Chloride 102 (98-107) mmol/L Carbon Dioxide 29 (22-30) mmol/L Anion Gap 12 (10-20) BUN 17 (9-20) mg/dL Creatinine 0.7 L (0.8-1.5) mg/dL Est GFR ( Amer) > 60 Est GFR (Non-Af Amer) > 60 Random Glucose 113 H (75-110) mg/dL Calcium 8.7 (8.6-10.4) mg/dl Phosphorus 3.6 (2.5-4.5) mg/dL Magnesium 1.6 (1.6-2.3) mg/dL Total Bilirubin 0.5 (0.2-1.3) mg/dL AST 40 (17-59) U/L ALT 54 (21-72) U/L Alkaline Phosphatase 91 (38-126) U/L Total Protein 6.0 L (6.3-8.3) g/dL Albumin 2.9 L (3.5-5.0) g/dL Globulin 3.0 (2.2-3.9) gm/dL Albumin/Globulin Ratio 1.0 (1.0-2.1) Laboratory Results - last 24 hr 06/22/18 06/22/18 06:13 06:13 WBC 10.1 RBC 3.86 L Hgb 11.7 L Hct 34.4 L MCV 89.2 MCH 30.3 MCHC 34.0 RDW 20.3 H Plt Count 303 MPV 7.7 Neut % (Auto) 93.6 H Lymph % (Auto) 3.3 L [place] % (Auto) 3.0 Eos % (Auto) 0.0 Baso % (Auto) 0.1 Neut # (Auto) 9.4 H Lymph # (Auto) 0.3 L [place] # (Auto) 0.3 Eos # (Auto) 0.0 Baso # (Auto) 0.0 Neutrophils % (Manual) 90 H Band Neutrophils % 1 Lymphocytes % (Manual) 5 L Monocytes % (Manual) 3 Metamyelocytes % 1 H Platelet Estimate Normal Anisocytosis (manual) Moderate Tra Cells Slight Sodium 139 Potassium 3.8 Chloride 102 Carbon Dioxide 29 Anion Gap 12 BUN 17 Creatinine 0.7 L Est GFR ( Amer) > 60 Est GFR (Non-Af Amer) > 60 Random Glucose 113 H Calcium 8.7 Phosphorus 3.6 Magnesium 1.6 Total Bilirubin 0.5 AST 40 ALT 54 Alkaline Phosphatase 91 Total Protein 6.0 L Albumin 2.9 L Globulin 3.0 Albumin/Globulin Ratio 1.0 Critical Care Progress Note - Nutrition Nutrition: Nutrition Category Date Time Status Dysphagia/Modified Consistency Diet [DIET] Diets 06/18/18 Lunch Active Assessment/Plan (1) Cardiac arrest Current Visit: Yes Status: Acute Attending/Attestation - Attestation I have personally seen and examined this patient.: Yes I have fully participated in the care of the patient.: Yes I have reviewed all pertinent clinical information: Yes Notes (Text): 06/22/18 13:27 I have seen and examined the patient. Medical records, lab studies, and imaging were reviewed by me and a management plan was formulated on multidisciplinary rounds with resident Dr. Pantoja. I agree with their documented assessment and plan. stopping precedex. wean off of BIPAP. Try to get patient out of bed to chair. Ordered PT/OT eval. Critical Care Time 35 minutes. Multi-disciplinary rounds were performed with house staff, nursing, speech therapy, respiratory therapy, pharmacy and nutrition with integrated input from the primary team/attending and other consulting services. The documented time is cumulative and includes review of patient data/exams/labs/chart review and examination of the patient on rounds and throughout the day; time is exclusive of any procedures or teaching time.
--- NOTE | 2018-06-22 17:30 | CP.PCM.PN ---
Subjective - Date & Time of Evaluation Date of Evaluation: 06/22/18 Time of Evaluation: 17:29 - Subjective Subjective: on precedex on bipap confused mumbling somnolent unable to get history or to converse Objective - Vital Signs/Intake and Output Vital Signs (last 24 hours): Temp Pulse Resp BP Pulse Ox 98.7 F 125 H 23 159/115 H 95 06/22/18 15:50 06/22/18 15:21 06/22/18 16:17 06/22/18 15:21 06/22/18 15:21 Intake and Output: 06/22/18 06/22/18 06:59 18:59 Intake Total 211.0 157.8 Output Total 1850 Balance -1639.0 157.8 - Medications Medications: Current Medications Albuterol/Ipratropium (Duoneb 3 Mg/0.5 Mg (3 Ml) Ud) 3 ml INH RQ4 [facility]ANK Last Admin: 06/22/18 16:15 Dose: 3 ml Diltiazem HCl (Cardizem) 60 mg PO Q6H [facility] Folic Acid (Folic Acid) 1 mg PO DAILY [facility] Last Admin: 06/22/18 09:05 Dose: 1 mg Guaifenesin (Robitussin) 200 mg PO Q4H PRN PRN Reason: Cough and congestion Piperacillin Sod/Tazobactam Sod (Zosyn 3.375 Gm Iv Premix) 3.375 gm in 50 mls @ 100 mls/hr IVPB Q6H [facility]ANK PRN Reason: Protocol Last Admin: 06/22/18 10:00 Dose: 100 mls/hr Vancomycin HCl 1 gm/ Sodium (Chloride) 200 mls @ 133.333 mls/hr IVPB Q12H [facility] PRN Reason: Protocol Last Admin: 06/19/18 20:44 Dose: 133.333 mls/hr Levetiracetam 500 mg/ Dextrose 105 mls @ 420 mls/hr IVPB Q12H [facility] Last Admin: 06/22/18 06:28 Dose: 420 mls/hr Lisinopril (Zestril) 10 mg PO DAILY [facility] Last Admin: 06/22/18 09:05 Dose: 10 mg Lorazepam (Ativan) 1 mg IVP Q4H PRN PRN Reason: Agitation Last Admin: 06/22/18 16:18 Dose: 1 mg Methylprednisolone (Solu-Medrol) 40 mg IV Q8H [facility] Last Admin: 06/22/18 09:05 Dose: 40 mg Multivitamins/Vitamin C (Multi-Delyn Liquid) 5 ml PO DAILY [facility] Last Admin: 06/22/18 09:05 Dose: 5 ml Pantoprazole Sodium (Protonix Inj) 40 mg IVP Q12 [facility] Last Admin: 06/22/18 09:05 Dose: 40 mg Sucralfate (Carafate Oral Susp) 1 gm PO QID [facility] Last Admin: 06/22/18 14:40 Dose: Not Given Thiamine HCl (Vitamin B1 Tab) 100 mg PO BID [facility] Last Admin: 06/22/18 09:05 Dose: 100 mg - Labs Labs: 06/22/18 06:13 06/22/18 06:13 PT 13.6 SECONDS (9.7-12.2) H 06/20/18 10:09 INR 1.2 06/20/18 10:09 APTT 40 SECONDS (21-34) H 06/10/18 23:37 - Additional Findings Additional findings: - Constitutional Appears: In Acute Distress, Confused - Head Exam Head Exam: ATRAUMATIC - Eye Exam Eye Exam: Normal appearance - ENT Exam ENT Exam: Mucous Membranes Dry - Respiratory Exam Respiratory Exam: Accessory Muscle Use, Rhonchi, Respiratory Distress. absent: Clear to Ausculation Bilateral, NORMAL BREATHING PATTERN - Cardiovascular Exam Cardiovascular Exam: Tachycardia - GI/Abdominal Exam GI & Abdominal Exam: Soft, Normal Bowel Sounds. absent: Tenderness - Neurological Exam Neurological Exam: Alert, Awake. absent: Oriented x3 - Psychiatric Exam Psychiatric exam: Anxious - Skin Skin Exam: Diaphoretic Assessment and Plan - Assessment and Plan (Free Text) Assessment: - Assessment and Plan (Free Text) Assessment: spoke with icu physician and silviculture forester patient in resp distress we will initiate bipap with the caveat that he has high secretions may require reintubation he was extubated recently rn also tried pulm toilet with suctioning Continue ICU care Assessment/Plan 1). Cardiopulmonary Arrest Assessment/Plan * Cardiology Dr. Iglesias educational program director-->help appreciated * PEA s/p ROSC NSR * Echocardiogram (06/12/18): ejection fraction: 45-50%, left ventricular diastolic function is abnormal. left atrium size looks normal right atrium size looks normal. trace to mild tricupsid regurgitaton * Solumedrol 40 mg IV Q6H (since 06/17/18) * Taper to 40mg IV Q8H 2). Hyponatremia Assessment/Plan * Nephrology Dr. Shafer on board-->help appreciated * Secondary to Alcohol Abuse * Received 3 NS boluses in ER * Seizure precautions * Normalized 3). Hypokalemia/Hypomagnesemia/Hypophosphotemia Assessment/Plan * Replete as needed 4). Metabolic Acidosis Assessment/Plan * Likely secondary to the Cadriopulmonary Arrest, GI bleed, Respiratory Distress * Resolved 5). Seizure Assessment/Plan * Neurology Dr. Richie Rubi on board-->help appreciated * Risk factor: heavy alcohol use and hyponatremia, hypomagnesium * Head CT (06/11/18): no acute intracranial abnormality. Chronic microvascular ischemic changes. sinus mucosal disease as above * He has a history of alcohol withdrawal seizures * Patient is on Precedex * Will need to monitor mental status and agitation * Keppra 500 mg IV Q12H * Recommend EEG if mental status does not improve after extubation and once off precedex 6). Anemia likely secondary to GI Bleed History of Peptic Ulcer Disease Bleeding Ulcer Assessment/Plan * GI Dr. Ho on consult help appreciated * CT Chest/abdomen/pelvis (06/12/18): distended bowel suggesting an ileus. Markedly limited evaluation of the bowel without oral or intravenous contrast. Suggestion of prior Bilroth 2 procedure. Fluid filled dilatation of small bowel andproximal colon. Fluid filled dilatation of the small bowel and prozimal colon. Fluid in the descending colon without a sharp transition sozne. Portions of transverse colon were not well visualized. * Monitor H/H and transfuse as needed * Carafate 1g qid * S/P EGD POD2: 2 anastomotic ulcers with visible vessel s/p APC and 5 clips, one ulcer with visible vessel and adherent clot was not intervened on due to adverse location--->If pt develops further bleeding will need IR and Surgery on board, difficult to treat endoscopically * Monitor H/H: received 2 units on 06/16/18 and is currently stable * No NSAIDS and strong history of alcohol abuse 7). Hypocalcemia Assessment/Plan * Monitor 8). Acute Respiratory Failure Assessment/Plan * Extubated 06/12/18 and Re-intubated on 06/14/18 and extubated 06/17/18 * Management per ICU * Noted rib fractures * Patient is on Zosyn and held Vancomycin given elevated trough to cover for bilateral pneumonia * Taper Solumedrol 40 mg IV Q8H * Patient has productive cough. 9) Open Wounds on Sacrum Stage II Assessment/Plan * Turn [id number] * MediHoney with Optifoam Dressing 10) Bilateral Anterior Rib and Sternal Fractures Assessment/Plan * Noted on CT Chest * Secondary to CPR given cardiopulmonary arrest 11) Pneumonia Assessment/Plan * CT Chest 06/11/18: thinned walled cavity in the right upper lobe which may be the sequelae of prior infection 5mm subpleural nodule within the anterior right middle lobe. Focal consolidation within the inferior right middle lobe. Focal consolidation within the right lower lobe. Patchy ground glass opacities in both lungs which and nonspecific but may secondary to alectasis versus contusion versus pneumonitis. * Zosyn 3.375g IV Q8H (active since 06/11/18) and Vancomycin 1 gm IV Q12H ( active since 06/14/18) * Vancomycin trough is within range of 15 to 20. Next Vancomycin Trough 06/20/18 at 8:30 PM * Hold Vancomcyin today given elevated vancomycin trough * Tracheal Aspirate 06/16/18 shows Yeast Species and Fluconazole 100 mg IV 1x/ day has been ordered through 07/02/18 * NO fevers and vitals are stable 12) Systolic and Diastolic Heart Failure * Echocardiogram 06/12/18 shows EF at 45-50%, left ventricular diastolic function abnormal with Grade I abnormal relaxation pattern, trace to mild ticuspid regurgitation * Lisinopril 10 mg PO 1x/day * Coreg 3.125 mg PO 2x/day * F/U any recommendations from Cardiology Dr. Iglesias 13) Urinary tract infection * Zosyn 3.375g IV Q8H (active since 06/11/18) * Repeat urine culture 06/13/18 showed NO growth 14) Bacteremia * Repeat blood culture 06/12/18 is negative at 5 days 15) Alcoholism * Hx heavy use * On Precedex * Librium 25 mg PO Q8H * MVI PO 1x/day 16) Prophylactic measure * Protonix 40 mg IV Q12H * Lactobacillus 1 cap PO 2x/day * Chemical anticoagulation held secondary to GI bleed * Turn [id number] * Order Physical Therapy evaluation when patient able to follow instructions * Aspiration precautions * Seizure precautions * Wound care on board
[2018-06-23] MEDS: MethylPREDNISolone 40 mg Vial IV SCH ×3 (00:17→16:33)
[2018-06-23] MEDS: Albuterol-Ipratrop 3 mg / 0.5 (3 ml) UD INH SCH ×6 (00:19→19:19)
[2018-06-23] MEDS: Piperacill/Tazo 3.375gm in Dex 3.375 GM/50 ML BAG IVPB SCH ×4 (05:17→22:43)
[2018-06-23 06:38] LABS: BASO # 0.1 K/uL (0.0-0.2); BASO % 0.4 % (0.0-2.0); HEMOGLOBIN 13.5 g/dL (12.0-18.0); LYMPH # 0.3 K/uL (1.0-4.3); LYMPH % 1.7 % (20.0-40.0); MEAN CELL VOLUME 89.6 fL (80.0-94.0); MEAN CORPUSCULAR HEMOGLOBIN 29.8 pg (27.0-31.0); MEAN CORPUSCULAR HGB CONC 33.2 g/dL (33.0-37.0); MEAN PLATELET VOLUME 7.8 fL (7.2-11.7); MONO # 0.5 K/uL (0.0-0.8); MONO % 2.8 % (0.0-10.0); NEUT # 17.4 K/uL (1.8-7.0); NEUT % 95.1 % (50.0-75.0); PLATELET COUNT 333 K/uL (130-400); RBC 4.54 Mil/uL (4.40-5.90); RED CELL DISTRIBUTION WIDTH 20.8 % (11.5-14.5); WHITE BLOOD COUNT 18.3 K/uL (4.8-10.8)
[2018-06-23 07:30] LABS: ARTERIAL BLOOD GAS HCO3 30.3 mmol/L (21-28); ARTERIAL BLOOD GAS O2 SAT 97.6 % (95-98); ARTERIAL BLOOD GAS PCO2 38 mm/Hg (35-45); ARTERIAL BLOOD GAS PH 7.51 (7.35-7.45); ARTERIAL BLOOD GAS PO2 81 mm/Hg (80-100); ARTERIAL BLOOD GAS TCO2 31.5 mmol/L (22-28)
[2018-06-23 08:19] LABS: ALB/GLOB RATIO 0.9 (1.0-2.1); ALT/SGPT 45 U/L (21-72); AST/SGOT 27 U/L (17-59); BLOOD UREA NITROGEN 21 mg/dL (9-20); CALCIUM 8.8 mg/dl (8.6-10.4); GFR NON-AFRICAN AMERICAN > 60
--- NOTE | 2018-06-23 08:52 | RAD ---
Date of service: 06/23/2018 PROCEDURE: CHEST RADIOGRAPH, 1 VIEW HISTORY: dx. s/p cardiac arrest, now on BIPAP COMPARISON: 06/22/2018 FINDINGS: LUNGS: No pulmonary infiltrate. Probable linear scar/subsegmental atelectasis at left base. PLEURA: Small right pleural effusion increased from prior. No left pleural effusion. No pneumothorax. CARDIOVASCULAR: Normal heart size. No congestive change. Status post removal left IJ multi lumen central venous catheter. OSSEOUS STRUCTURES: No significant abnormalities. VISUALIZED UPPER ABDOMEN: Normal. OTHER FINDINGS: None. IMPRESSION: Small right pleural effusion. Left basilar linear scar/ subsegmental atelectasis. No acute infiltrate.
--- NOTE | 2018-06-23 09:00 | CP.CCUPN ---
<Alvin Pantoja - Last Filed: 06/23/18 13:14> CCU Subjective - Physician Review Subjective (Free Text): ICU progress note Patient seen and examined at bedside. Patient slightly lethargic, on BIPAP, noted to have thick secretions. Oriented to self, but not to place or time. CCU Objective - Vital Signs / Intake & Output Vital Signs (Last 4 hours): Vital Signs Pulse Resp BP Pulse Ox 06/23/18 07:35 113 H 06/23/18 07:00 95 H 22 129/73 96 06/23/18 06:02 108 H 06/23/18 06:01 108 H 26 H 132/81 96 06/23/18 06:00 107 H 26 H 96 06/23/18 05:01 116 H 25 H 152/95 H 100 Intake and Output (Last 8hrs): Intake & Output 06/22/18 06/23/18 06/23/18 22:59 06:59 14:59 Intake Total 150 100 100 Output Total 350 350 Balance -200 -250 100 Weight 99 lb 3.2 oz Intake: Intake, IV Amount 150 100 100 Left Distal Port Internal 50 Jugular Left Proximal Port 150 50 100 Internal Jugular Oral 0 0 0 Output: Urine 350 350 Condom 350 350 Other: # Voids Condom 0 0 0 # Bowel Movements 0 0 0 - Physical Exam Physical Exam Limitations: Positive for: Other (Slightly lethargic) Head: Positive for: Atraumatic, Normocephalic Pupils: Positive for: PERRL. Negative for: Non-Reactive, Pinpoint Conjunctiva: Positive for: Normal. Negative for: Injected, Icteric Mouth: Positive for: Moist Mucous Membranes, Other (central incisor on right found dislodged in mouth. no active bleeding noted from site. ) Nose (Internal): Positive for: No Active Bleeding. Negative for: Epistaxis Neck: Positive for: Normal Range of Motion, Trachea Midline. Negative for: JVD Respiratory/Chest: Positive for: Rhonchi (Thick white secretions suctioned). Negative for: Wheezes, Rales Cardiovascular: Positive for: Regular Rate and Rhythm, Normal S1, S2, Peripheal Pulses Present. Negative for: Irregular Rhythm, Tachycardic, Bradycardic Abdomen: Positive for: Normal Bowel Sounds. Negative for: Tenderness (abdomen is soft), Distention Upper Extremity: Positive for: Normal Inspection, NORMAL PULSES. Negative for: Edema Lower Extremity: Positive for: Normal Inspection, NORMAL PULSES. Negative for: Edema Neurological: Positive for: Motor Func Grossly Intact (not grossly tremulous) Skin: Positive for: Warm, Dry, Normal Color Psychiatric: Positive for: Other (Lethargic initially, however more awake after patient was taken on BIPAP. ) - Medications Active Medications: Active Medications Generic Name Dose Route Start Last Admin Trade Name Freq PRN Reason Stop Dose Admin Albuterol/Ipratropium 3 ml 06/15/18 00:00 06/23/18 07:35 Duoneb 3 Mg/0.5 Mg (3 Ml) Ud INH 3 ml RQ4 MAYANK Administration Diltiazem HCl 60 mg 06/22/18 17:00 06/23/18 05:18 Cardizem PO Not Given Q6H MAYANK Folic Acid 1 mg 06/18/18 10:00 06/22/18 09:05 Folic Acid PO 1 mg DAILY MAYANK Administration Guaifenesin 200 mg 06/22/18 15:34 Robitussin PO Q4H PRN Cough and congestion Piperacillin Sod/Tazobactam Sod 3.375 gm in 50 mls @ 100 mls/hr 06/14/18 23: 00 06/23/18 05:17 Zosyn 3.375 Gm Iv Premix IVPB 100 mls/hr Q6H MAYANK Administration Protocol Vancomycin HCl 1 gm/ Sodium 200 mls @ 133.333 mls/hr 06/18/18 21:00 06/19/18 20:44 Chloride IVPB 133.333 mls/hr Q12H MAYANK Administration Protocol Levetiracetam 250 mg/ Dextrose 102.5 mls @ 420 mls/hr 06/23/18 18:00 IVPB Q12H MAYANK Lisinopril 10 mg 06/19/18 15:15 06/22/18 09:05 Zestril PO 10 mg DAILY MAYANK Administration Methylprednisolone 40 mg 06/20/18 09:00 06/23/18 00:17 Solu-Medrol IV 40 mg Q8H MAYANK Administration Multivitamins/Vitamin C 5 ml 06/18/18 10:00 06/22/18 09:05 Multi-Delyn Liquid PO 5 ml DAILY MAYANK Administration Pantoprazole Sodium 40 mg 06/23/18 10:00 Protonix Ec Tab PO Q12 COUNT INCLUDES THE [facility] Sucralfate 1 gm 06/11/18 18:00 06/22/18 21:59 Carafate Oral Susp PO Not Given QID COUNT INCLUDES THE [facility] Thiamine HCl 100 mg 06/18/18 10:00 06/22/18 18:19 Vitamin B1 Tab PO Not Given BID COUNT INCLUDES THE [facility] - Patient Studies Lab Studies: Microbiology Studies 06/22/18 15:47 Gram Stain - Final Sputum Lab Studies 06/23/18 06/23/18 06/23/18 Range/Units 07:27 07:22 06:26 WBC 18.3 H D (4.8-10.8) K/uL RBC 4.54 (4.40-5.90) Mil/uL Hgb 13.5 (12.0-18.0) g/dL Hct 40.7 (35.0-51.0) % MCV 89.6 (80.0-94.0) fL MCH 29.8 (27.0-31.0) pg MCHC 33.2 (33.0-37.0) g/dL RDW 20.8 H (11.5-14.5) % Plt Count 333 (130-400) K/uL MPV 7.8 (7.2-11.7) fL Neut % (Auto) 95.1 H (50.0-75.0) % Lymph % (Auto) 1.7 L (20.0-40.0) % Sullivan % (Auto) 2.8 (0.0-10.0) % Eos % (Auto) 0.0 (0.0-4.0) % Baso % (Auto) 0.4 (0.0-2.0) % Neut # (Auto) 17.4 H (1.8-7.0) K/uL Lymph # (Auto) 0.3 L (1.0-4.3) K/uL Sullivan # (Auto) 0.5 (0.0-0.8) K/uL Eos # (Auto) 0.0 (0.0-0.7) K/uL Baso # (Auto) 0.1 (0.0-0.2) K/uL Puncture Site Rb pCO2 38 (35-45) mm/Hg pO2 81 (80-100) mm/Hg HCO3 30.3 H (21-28) mmol/L ABG pH 7.51 H (7.35-7.45) ABG Total CO2 31.5 H (22-28) mmol/L ABG O2 Saturation 97.6 (95-98) % ABG Base Excess 6.9 H (-2.0-3.0) mmol/L Bob Test Na ABG Potassium 3.6 (3.6-5.2) mmol/L A-a O2 Difference 157.0 mm/Hg Respiratory Index 1.9 Glucose 153 H (75-110) mg/dl Lactate 0.8 (0.7-2.1) mmol/L Vent Mode Bipap FiO2 40.0 % Inspiratory BiPAP 12 Expiratory BiPAP 6 Sodium 144.0 141 (132-148) mmol/L Potassium 3.7 (3.6-5.2) mmol/L Chloride 106.0 105 (98-107) mmol/L Carbon Dioxide 25 (22-30) mmol/L Anion Gap 14 (10-20) BUN 21 H (9-20) mg/dL Creatinine 0.8 (0.8-1.5) mg/dL Est GFR ( Amer) > 60 Est GFR (Non-Af Amer) > 60 Random Glucose 148 H (75-110) mg/dL Calcium 8.8 (8.6-10.4) mg/dl Phosphorus 4.0 (2.5-4.5) mg/dL Magnesium 1.7 (1.6-2.3) mg/dL Total Bilirubin 0.5 (0.2-1.3) mg/dL AST 27 (17-59) U/L ALT 45 (21-72) U/L Alkaline Phosphatase 104 (38-126) U/L Total Protein 6.3 (6.3-8.3) g/dL Albumin 3.0 L (3.5-5.0) g/dL Globulin 3.2 (2.2-3.9) gm/dL Albumin/Globulin Ratio 0.9 L (1.0-2.1) Arterial Blood Potassium 3.6 (3.6-5.2) mmol/L Laboratory Results - last 24 hr 06/23/18 06/23/18 06/23/18 06:26 07:22 07:27 WBC 18.3 H D RBC 4.54 Hgb 13.5 Hct 40.7 MCV 89.6 MCH 29.8 MCHC 33.2 RDW 20.8 H Plt Count 333 MPV 7.8 Neut % (Auto) 95.1 H Lymph % (Auto) 1.7 L Sullivan % (Auto) 2.8 Eos % (Auto) 0.0 Baso % (Auto) 0.4 Neut # (Auto) 17.4 H Lymph # (Auto) 0.3 L Sullivan # (Auto) 0.5 Eos # (Auto) 0.0 Baso # (Auto) 0.1 Puncture Site Rb pCO2 38 pO2 81 HCO3 30.3 H ABG pH 7.51 H ABG Total CO2 31.5 H ABG O2 Saturation 97.6 ABG Base Excess 6.9 H Bob Test Na ABG Potassium 3.6 A-a O2 Difference 157.0 Respiratory Index 1.9 Glucose 153 H Lactate 0.8 Vent Mode Bipap FiO2 40.0 Inspiratory BiPAP 12 Expiratory BiPAP 6 Sodium 141 144.0 Potassium 3.7 Chloride 105 106.0 Carbon Dioxide 25 Anion Gap 14 BUN 21 H Creatinine 0.8 Est GFR ( Amer) > 60 Est GFR (Non-Af Amer) > 60 Random Glucose 148 H Calcium 8.8 Phosphorus 4.0 Magnesium 1.7 Total Bilirubin 0.5 AST 27 ALT 45 Alkaline Phosphatase 104 Total Protein 6.3 Albumin 3.0 L Globulin 3.2 Albumin/Globulin Ratio 0.9 L Arterial Blood Potassium 3.6 Fingerstick Blood Sugar Results: 158 Critical Care Progress Note - Nutrition Nutrition: Nutrition Category Date Time Status Dysphagia/Modified Consistency Diet [DIET] Diets 06/18/18 Lunch Active Assessment/Plan - Assessment and Plan (Free Text) Assessment: 52 year old male with history of alcohol use disorder, seizure disorder, peptic ulcer disease, partial gastrectomy, COPD and hiatal hernia who came in for PEA cardiac arrest 06/10. Patient had a seizure and was found in PEA by EMS, coded and intubated in the field, 2x PEA arrests after arrival resolved with CPR, started on Levophed after 2nd ROSC inhouse. Patient found to have upper GI bleed , s/p bedside EGD, 1 ulcer clipped by GI. Now extubated, no longer on Precedex and Librium. Plan: Neuro: 06/21 Discontinue Precedex and Librium 06/23 Ativan discontinued Patient on BIPAP, slightly lethargic, became more awake when taken off BIPAP History of alcohol use disorder and seizure disorder Continue Folic acid and Thiamine given history of alcohol use Keppra dosage lowered to 250mg IV Q12 Keppra level ordered f/u EEG (06/15) shows an abnormal awake and drowsy EEG which is very slow, indicating encephalopathy or medication effect. Recommend repeat EEG off sedation. Neuro Dr. Rubi consulted, signed off case 06/16 Cardiovascular: ECHO 06/11: EF of 45-50%, Left ventricular diastolic function is abnormal. Transmitral doppler flow pattern is grade I-abnormal relaxation pattern. trace to mild tricuspid regurgitation. Troponin negative Tachycardic Cardizem 60mg Q6 Lisinopril 10mg daily Cardiology Dr. Iglesais consulted, recs appreciated Pulmonary: Extubated, tolerating well Taken off BIPAP Humidifed air CXR 06/23 Small right pleural effusion. Left basilar linear scar/ subsegmental atelectasis. No acute infiltrate. Chest CTA (06/14) showed NO evidence of PE. Extensive right lower lobe consolidation/atelectasis with lesser atelectasis in the right middle lobe and lingula. Multifocal ground-glass opacity. Possible infectious etiology. Fluid/ secretion in right lower lobe bronchus and possible right upper lobe bronchus. Consider aspiration as etiology. Mild mediastinal and right hilar lymphadenopathy. Continue Zosyn 3.375g IV Duonebs Q4 MAYANK Solumedrol 40mg IV Q8 Robitussin 200mg PO Q4 PRN GI: S/p gastric ulcer clipped 06/11 Protonix 40mg IV Q12 carafate 1mg PO QID GI recommends IR and surgery for further bleeding since patient is difficult to treat endoscopically. GI signed off Renal BUN 21 /Cr 0.8 Maintain euvolemia Monitor and replete electrolytes as needed Nephrology Dr. Shafer, help appreciated ID Afebrile, White count 18.3 Urine culture 06/13 final no growth (06/11 culture: acintobacter baumannii) 1 of 2 blood cultures positive for coag negative staph in aerobic bottle only, possible contamination but empirically covered on Vanco anyway Patient is currently on empiric antibiotic therapy due to likely aspiration pneumonia; Continue Zosyn Heme: Hb 13.5/ Hct 40.7 anticoagulation contraindicated given recent bleeding GI ulcer no active signs of bleeding appreciated at this time Endo: maintain euglycemia Integumentary: stage 2 ulcer on sacrum previously identified continue medihoney and optoform dressing as per primary team wound care has been consulted Dental: Right central incisor found in mouth by nurse No dental consult available to see patient while hospitalized Case discussed with Dr. Jane Noland <Jane Noland - Last Filed: 06/23/18 16:47> CCU Objective - Vital Signs / Intake & Output Vital Signs (Last 4 hours): Vital Signs Pulse Resp BP Pulse Ox 06/23/18 14:01 114 H 21 128/73 98 06/23/18 14:00 117 H 17 06/23/18 13:00 115 H 20 140/86 96 Intake and Output (Last 8hrs): Intake & Output 06/23/18 06/23/18 06/23/18 06:59 14:59 22:59 Intake Total 100 100 Output Total 350 Balance -250 100 Weight 99 lb 3.2 oz Intake: Intake, IV Amount 100 100 Left Distal Port Internal 50 Jugular Left Proximal Port 50 100 Internal Jugular Oral 0 0 Output: Urine 350 Condom 350 Other: # Voids Condom 0 0 # Bowel Movements 0 0 - Medications Active Medications: Active Medications Generic Name Dose Route Start Last Admin Trade Name Freq PRN Reason Stop Dose Admin Albuterol/Ipratropium 3 ml 06/15/18 00:00 06/23/18 15:53 Duoneb 3 Mg/0.5 Mg (3 Ml) Ud INH 3 ml RQ4 MAYANK Administration Diltiazem HCl 60 mg 06/22/18 17:00 06/23/18 16:33 Cardizem PO 60 mg Q6H MAYANK Administration Folic Acid 1 mg 06/18/18 10:00 06/23/18 09:46 Folic Acid PO 1 mg DAILY MAYANK Administration Guaifenesin 200 mg 06/22/18 15:34 06/23/18 09:46 Robitussin PO 200 mg Q4H PRN Administration Cough and congestion Piperacillin Sod/Tazobactam Sod 3.375 gm in 50 mls @ 100 mls/hr 06/14/18 23: 00 06/23/18 16:00 Zosyn 3.375 Gm Iv Premix IVPB 100 mls/hr Q6H MAYANK Administration Protocol Vancomycin HCl 1 gm/ Sodium 200 mls @ 133.333 mls/hr 06/18/18 21:00 06/19/18 20:44 Chloride IVPB 133.333 mls/hr Q12H MAYANK Administration Protocol Levetiracetam 250 mg/ Dextrose 102.5 mls @ 420 mls/hr 06/23/18 18:00 IVPB Q12H MAYANK Lisinopril 10 mg 06/19/18 15:15 06/23/18 09:45 Zestril PO 10 mg DAILY MAYANK Administration Methylprednisolone 40 mg 06/20/18 09:00 06/23/18 16:33 Solu-Medrol IV 40 mg Q8H MAYANK Administration Multivitamins/Vitamin C 5 ml 06/18/18 10:00 06/23/18 09:46 Multi-Delyn Liquid PO 5 ml DAILY MAYANK Administration Pantoprazole Sodium 40 mg 06/23/18 10:00 06/23/18 09:45 Protonix Ec Tab PO 40 mg Q12 MAYANK Administration Sucralfate 1 gm 06/11/18 18:00 06/23/18 14:00 Carafate Oral Susp PO Not Given QID COUNT INCLUDES THE [facility] Thiamine HCl 100 mg 06/18/18 10:00 06/23/18 09:46 Vitamin B1 Tab PO 100 mg BID MAYANK Administration - Patient Studies Lab Studies: Microbiology Studies 06/22/18 15:47 Gram Stain - Final Sputum Lab Studies 06/23/18 06/23/18 06/23/18 Range/Units 07:27 07:22 06:26 WBC 18.3 H D (4.8-10.8) K/uL RBC 4.54 (4.40-5.90) Mil/uL Hgb 13.5 (12.0-18.0) g/dL Hct 40.7 (35.0-51.0) % MCV 89.6 (80.0-94.0) fL MCH 29.8 (27.0-31.0) pg MCHC 33.2 (33.0-37.0) g/dL RDW 20.8 H (11.5-14.5) % Plt Count 333 (130-400) K/uL MPV 7.8 (7.2-11.7) fL Neut % (Auto) 95.1 H (50.0-75.0) % Lymph % (Auto) 1.7 L (20.0-40.0) % Sullivan % (Auto) 2.8 (0.0-10.0) % Eos % (Auto) 0.0 (0.0-4.0) % Baso % (Auto) 0.4 (0.0-2.0) % Neut # (Auto) 17.4 H (1.8-7.0) K/uL Lymph # (Auto) 0.3 L (1.0-4.3) K/uL Sullivan # (Auto) 0.5 (0.0-0.8) K/uL Eos # (Auto) 0.0 (0.0-0.7) K/uL Baso # (Auto) 0.1 (0.0-0.2) K/uL Neutrophils % (Manual) 94 H (50-75) % Band Neutrophils % 1 (0-2) % Lymphocytes % (Manual) 3 L (20-40) % Monocytes % (Manual) 2 (0-10) % Platelet Estimate Normal (NORMAL) Anisocytosis (manual) Slight Puncture Site Rb pCO2 38 (35-45) mm/Hg pO2 81 (80-100) mm/Hg HCO3 30.3 H (21-28) mmol/L ABG pH 7.51 H (7.35-7.45) ABG Total CO2 31.5 H (22-28) mmol/L ABG O2 Saturation 97.6 (95-98) % ABG Base Excess 6.9 H (-2.0-3.0) mmol/L Bob Test Na ABG Potassium 3.6 (3.6-5.2) mmol/L A-a O2 Difference 157.0 mm/Hg Respiratory Index 1.9 Glucose 153 H (75-110) mg/dl Lactate 0.8 (0.7-2.1) mmol/L Vent Mode Bipap FiO2 40.0 % Inspiratory BiPAP 12 Expiratory BiPAP 6 Sodium 144.0 141 (132-148) mmol/L Potassium 3.7 (3.6-5.2) mmol/L Chloride 106.0 105 (98-107) mmol/L Carbon Dioxide 25 (22-30) mmol/L Anion Gap 14 (10-20) BUN 21 H (9-20) mg/dL Creatinine 0.8 (0.8-1.5) mg/dL Est GFR ( Amer) > 60 Est GFR (Non-Af Amer) > 60 Random Glucose 148 H (75-110) mg/dL Calcium 8.8 (8.6-10.4) mg/dl Phosphorus 4.0 (2.5-4.5) mg/dL Magnesium 1.7 (1.6-2.3) mg/dL Total Bilirubin 0.5 (0.2-1.3) mg/dL AST 27 (17-59) U/L ALT 45 (21-72) U/L Alkaline Phosphatase 104 (38-126) U/L Total Protein 6.3 (6.3-8.3) g/dL Albumin 3.0 L (3.5-5.0) g/dL Globulin 3.2 (2.2-3.9) gm/dL Albumin/Globulin Ratio 0.9 L (1.0-2.1) Arterial Blood Potassium 3.6 (3.6-5.2) mmol/L Laboratory Results - last 24 hr 06/23/18 06/23/18 06/23/18 06:26 07:22 07:27 WBC 18.3 H D RBC 4.54 Hgb 13.5 Hct 40.7 MCV 89.6 MCH 29.8 MCHC 33.2 RDW 20.8 H Plt Count 333 MPV 7.8 Neut % (Auto) 95.1 H Lymph % (Auto) 1.7 L Sullivan % (Auto) 2.8 Eos % (Auto) 0.0 Baso % (Auto) 0.4 Neut # (Auto) 17.4 H Lymph # (Auto) 0.3 L Sullivan # (Auto) 0.5 Eos # (Auto) 0.0 Baso # (Auto) 0.1 Neutrophils % (Manual) 94 H Band Neutrophils % 1 Lymphocytes % (Manual) 3 L Monocytes % (Manual) 2 Platelet Estimate Normal Anisocytosis (manual) Slight Puncture Site Rb pCO2 38 pO2 81 HCO3 30.3 H ABG pH 7.51 H ABG Total CO2 31.5 H ABG O2 Saturation 97.6 ABG Base Excess 6.9 H Bob Test Na ABG Potassium 3.6 A-a O2 Difference 157.0 Respiratory Index 1.9 Glucose 153 H Lactate 0.8 Vent Mode Bipap FiO2 40.0 Inspiratory BiPAP 12 Expiratory BiPAP 6 Sodium 141 144.0 Potassium 3.7 Chloride 105 106.0 Carbon Dioxide 25 Anion Gap 14 BUN 21 H Creatinine 0.8 Est GFR ( Amer) > 60 Est GFR (Non-Af Amer) > 60 Random Glucose 148 H Calcium 8.8 Phosphorus 4.0 Magnesium 1.7 Total Bilirubin 0.5 AST 27 ALT 45 Alkaline Phosphatase 104 Total Protein 6.3 Albumin 3.0 L Globulin 3.2 Albumin/Globulin Ratio 0.9 L Arterial Blood Potassium 3.6 Critical Care Progress Note - Nutrition Nutrition: Nutrition Category Date Time Status Dysphagia/Modified Consistency Diet [DIET] Diets 06/18/18 Lunch Active Assessment/Plan - Assessment and Plan (Free Text) Plan: Patient seen and examined at bedside. PAtient awake, alert, off bi-pap. Patient wa alble to get out of bed renal function normal -tolerating oral diet -Above resident documents my clinical management. -Patient remains hemodynamically stable. - Date & Time Date: 06/23/18 Time: 16:47
[2018-06-23 09:04] LABS: ANISOCYTOSIS SLIGHT; BANDS 1 % (0-2); LYMPHOCYTE 3 % (20-40); MONOCYTE 2 % (0-10); NEUTROPHIL 94 % (50-75); PLATELET ESTIMATE NORMAL (NORMAL); TOTAL CELLS COUNTED 100
[2018-06-23] MEDS: Pantoprazole 40 mg EC Tab PO SCH ×2 (09:45→21:22)
[2018-06-23] MEDS: Sucralfate 1 gm/10 ml Oral Susp UD PO SCH ×4 (09:46→21:22)
[2018-06-23] MEDS: guaiFENesin 200 mg/10 ml Syrup UD PO PRN (09:46)
[2018-06-23] MEDS: Multiple Vitamins Oral Solution PO SCH (09:46)
--- NOTE | 2018-06-23 19:54 | CP.PCM.PN ---
Subjective - Date & Time of Evaluation Date of Evaluation: 06/23/18 Time of Evaluation: 09:30 - Subjective Subjective: Medical Attending Note: patient seen and examined. Unable to ROS given confusion. Patient being evaluated by occupational therapy at this time. Objective - Vital Signs/Intake and Output Vital Signs (last 24 hours): Temp Pulse Resp BP Pulse Ox 98.1 F 97 H 25 H 114/67 95 06/23/18 16:00 06/23/18 19:00 06/23/18 19:00 06/23/18 19:00 06/23/18 19:00 Intake and Output: 06/23/18 06/24/18 18:59 06:59 Intake Total 200 Output Total 1000 Balance 200 -1000 - Medications Medications: Current Medications Albuterol/Ipratropium (Duoneb 3 Mg/0.5 Mg (3 Ml) Ud) 3 ml INH RQ4 MAYANK Last Admin: 06/23/18 19:19 Dose: 3 ml Diltiazem HCl (Cardizem) 60 mg PO Q6H [facility]ANK Last Admin: 06/23/18 16:33 Dose: 60 mg Folic Acid (Folic Acid) 1 mg PO DAILY [facility] Last Admin: 06/23/18 09:46 Dose: 1 mg Guaifenesin (Robitussin) 200 mg PO Q4H PRN PRN Reason: Cough and congestion Last Admin: 06/23/18 09:46 Dose: 200 mg Piperacillin Sod/Tazobactam Sod (Zosyn 3.375 Gm Iv Premix) 3.375 gm in 50 mls @ 100 mls/hr IVPB Q6H MAYANK PRN Reason: Protocol Last Admin: 06/23/18 16:00 Dose: 100 mls/hr Vancomycin HCl 1 gm/ Sodium (Chloride) 200 mls @ 133.333 mls/hr IVPB Q12H [facility]ANK PRN Reason: Protocol Last Admin: 06/19/18 20:44 Dose: 133.333 mls/hr Levetiracetam 250 mg/ Dextrose 102.5 mls @ 420 mls/hr IVPB Q12H [facility]ANK Last Admin: 06/23/18 17:00 Dose: 420 mls/hr Lisinopril (Zestril) 10 mg PO DAILY [facility] Last Admin: 06/23/18 09:45 Dose: 10 mg Methylprednisolone (Solu-Medrol) 40 mg IV Q8H [facility] Last Admin: 06/23/18 16:33 Dose: 40 mg Multivitamins/Vitamin C (Multi-Delyn Liquid) 5 ml PO DAILY [facility] Last Admin: 06/23/18 09:46 Dose: 5 ml Pantoprazole Sodium (Protonix Ec Tab) 40 mg PO Q12 [facility] Last Admin: 06/23/18 09:45 Dose: 40 mg Sucralfate (Carafate Oral Susp) 1 gm PO QID [facility] Last Admin: 06/23/18 17:13 Dose: 1 gm Thiamine HCl (Vitamin B1 Tab) 100 mg PO BID [facility] Last Admin: 06/23/18 17:14 Dose: 100 mg - Labs Labs: 06/23/18 06:26 06/23/18 07:22 PT 13.6 SECONDS (9.7-12.2) H 06/20/18 10:09 INR 1.2 06/20/18 10:09 APTT 40 SECONDS (21-34) H 06/10/18 23:37 - Constitutional Appears: No Acute Distress, Confused, Chronically Ill - Head Exam Head Exam: NORMAL INSPECTION - Eye Exam Eye Exam: EOMI - ENT Exam ENT Exam: Mucous Membranes Dry - Respiratory Exam Respiratory Exam: Decreased Breath Sounds, NORMAL BREATHING PATTERN. absent: Wheezes - Cardiovascular Exam Cardiovascular Exam: REGULAR RHYTHM, +S1, +S2 - GI/Abdominal Exam GI & Abdominal Exam: Soft, Normal Bowel Sounds. absent: Distended, Firm, Guarding, Rigid, Tenderness, Rebound - Neurological Exam Neurological Exam: Awake - Psychiatric Exam Psychiatric exam: absent: Agitated, Anxious - Skin Skin Exam: Dry, Normal Color, Warm Assessment and Plan (1) Cardiac arrest Status: Acute (2) Respiratory failure Status: Acute (3) Seizure Status: Acute (4) GI bleeding Status: Acute (5) Hyponatremia Status: Acute (6) Aspiration pneumonia Status: Acute (7) Encephalopathy Status: Acute (8) Prophylactic measure Status: Acute Attending/Attestation - Attestation I have personally seen and examined this patient.: Yes I have fully participated in the care of the patient.: Yes I have reviewed all pertinent clinical information, including history, physical exam and plan: Yes Notes (Text): patient seen this morning working with OT/PT katherin. Patient is off Bipap transition to nasal cannula. Patient is coughing up secretions. Patient is not oriented. patient is not aware he is at the hospital and asks for his mother. Patient's sputum culture is pending. Resumed Vancomycin in addition to Zosyn for cover for aspiration pneumonia. Patient is off Librium/Precedex. Monitor mental status. Note: patient had tooth found by nursing staff. there is not dentist on staff to evaluate patient while in house. Assessment/Plan 1). Cardiopulmonary Arrest Assessment/Plan * Cardiology Dr. Iglesias crm consultant-->help appreciated * PEA s/p ROSC NSR * Echocardiogram (06/12/18): ejection fraction: 45-50%, left ventricular diastolic function is abnormal. left atrium size looks normal right atrium size looks normal. trace to mild tricupsid regurgitaton * Solumedrol 40 mg IV Q8H (since 06/17/18) * EEG (06/15) shows an abnormal awake and drowsy EEG which is very slow, indicating encephalopathy or medication effect. Recommend repeat EEG off sedation 2). Hyponatremia Assessment/Plan * Nephrology Dr. Shafer on board-->help appreciated * Secondary to Alcohol Abuse * Received 3 NS boluses in ER * Seizure precautions * Normalized 3). Hypokalemia/Hypomagnesemia/Hypophosphotemia Assessment/Plan * Replete as needed 4). Metabolic Acidosis Assessment/Plan * Likely secondary to the Cadriopulmonary Arrest, GI bleed, Respiratory Distress * Resolved 5). Seizure Assessment/Plan * Neurology Dr. Richie Rubi on board-->help appreciated * Risk factor: heavy alcohol use and hyponatremia, hypomagnesium * Head CT (06/11/18): no acute intracranial abnormality. Chronic microvascular ischemic changes. sinus mucosal disease as above * He has a history of alcohol withdrawal seizures * Patient is off Precedex * Keppra 250 mg IV Q12H * Recommend EEG if mental status does not improve after extubation and once off precedex 6). Anemia likely secondary to GI Bleed History of Peptic Ulcer Disease Bleeding Ulcer Assessment/Plan * GI Dr. Ho on consult help appreciated * CT Chest/abdomen/pelvis (06/12/18): distended bowel suggesting an ileus. Markedly limited evaluation of the bowel without oral or intravenous contrast. Suggestion of prior Bilroth 2 procedure. Fluid filled dilatation of small bowel andproximal colon. Fluid filled dilatation of the small bowel and prozimal colon. Fluid in the descending colon without a sharp transition sozne. Portions of transverse colon were not well visualized. * Monitor H/H and transfuse as needed * Carafate 1g qid * S/P EGD POD: 2 anastomotic ulcers with visible vessel s/p APC and 5 clips, one ulcer with visible vessel and adherent clot was not intervened on due to adverse location--->If pt develops further bleeding will need IR and Surgery on board, difficult to treat endoscopically * Monitor H/H: received 2 units on 06/16/18 and is currently stable * protonix 40mg PO BID * No NSAIDS and strong history of alcohol abuse 7). Hypocalcemia Assessment/Plan * Monitor 8). Acute Respiratory Failure Aspiration Pneumonia Assessment/Plan * CT Chest 06/11/18: thinned walled cavity in the right upper lobe which may be the sequelae of prior infection 5mm subpleural nodule within the anterior right middle lobe. Focal consolidation within the inferior right middle lobe. Focal consolidation within the right lower lobe. Patchy ground glass opacities in both lungs which and nonspecific but may secondary to alectasis versus contusion versus pneumonitis. * Chest xray (06/23/18): small right pleural effusion. left basilar linear scar/ subsegmental atelectasis. no acute infiltrate. * Extubated 06/12/18 and Re-intubated on 06/14/18 and extubated 06/17/18 * Solumedrol 40 mg IV Q8H * Patient has productive cough. * Robotussin 200mg POq4H PRN cough and congestion * Zosyn 3.375 g IVPB Q6H (active since 06/14/18) * Vancomycin 1gram IV Q12H (resumed on 06/23/18; held on 06/19/18 given elevated trough) * Chest physiotherapy 9) Open Wounds on Sacrum Stage II Assessment/Plan * Turn [id number] * MediHoney with Optifoam Dressing * Latest wound care note: (06/22/18) WOUND CARE NOTE-Patient re-assessed; found to have improving MASD, Moisture associated skin damage to sacral/coccyx regions. Skin continues with blanchable erythema; erosions resolving. recommending to continue aloevesta protective ointment to entire sacral/coccyx regions 3x/day and prn for incontinent episodes. Must reposition this patient frequently to optimize offloading. Will continue to follow. 10) Bilateral Anterior Rib and Sternal Fractures Assessment/Plan * Noted on CT Chest * Secondary to CPR given cardiopulmonary arrest 11) Pneumonia Assessment/Plan * CT Chest 06/11/18: thinned walled cavity in the right upper lobe which may be the sequelae of prior infection 5mm subpleural nodule within the anterior right middle lobe. Focal consolidation within the inferior right middle lobe. Focal consolidation within the right lower lobe. Patchy ground glass opacities in both lungs which and nonspecific but may secondary to alectasis versus contusion versus pneumonitis. * Tracheal Aspirate 06/16/18 shows Yeast Species and Fluconazole 100 mg IV 1x/ day has been ordered through 07/02/18 * NO fevers and vitals are stable 12) Systolic and Diastolic Heart Failure * Echocardiogram 06/12/18 shows EF at 45-50%, left ventricular diastolic function abnormal with Grade I abnormal relaxation pattern, trace to mild ticuspid regurgitation * Lisinopril 10 mg PO 1x/day * Cardizem 60mg PO Q6H * Aspirin contraindication secondary to bleeding ulcer * F/U any recommendations from Cardiology Dr. Iglesias 13) Urinary tract infection-->resolved * Zosyn 3.375g IV Q8H (active since 06/11/18) * Repeat urine culture 06/13/18 showed NO growth 14) Bacteremia-->resolved * Repeat blood culture 06/12/18 is negative at 5 days 15) Alcoholism * Hx heavy use * Off Precedex * off Librium 25 mg PO Q8H 06/22/18 * MVI PO 1x/day * Thiamine 100mg PO BID * Folic acid 1mg PO daily * MVI 5 ml PO daily * Order for Abdominal US to eval for liver disease 16) Prophylactic measure * Protonix 40 mg PO Q12H * Lactobacillus 1 cap PO 2x/day * Chemical anticoagulation held secondary to GI bleed * Turn [id number] * Aspiration precautions * Seizure precautions * Wound care on board * PT/OT eval
[2018-06-23] MEDS: Vancomycin 1 gm/NS 200 ml 1 GM/200 ML BAG IVPB SCH (21:22)
[2018-06-24] MEDS: Albuterol-Ipratrop 3 mg / 0.5 (3 ml) UD INH SCH ×6 (00:13→19:19)
[2018-06-24] MEDS: MethylPREDNISolone 40 mg Vial IV SCH ×3 (03:18→17:04)
[2018-06-24] MEDS: Piperacill/Tazo 3.375gm in Dex 3.375 GM/50 ML BAG IVPB SCH ×2 (04:29→10:11)
[2018-06-24 06:17] LABS: BASO % 0.3 % (0.0-2.0); LYMPH # 0.4 K/uL (1.0-4.3); LYMPH % 3.9 % (20.0-40.0); MEAN CELL VOLUME 89.8 fL (80.0-94.0); MEAN CORPUSCULAR HEMOGLOBIN 30.4 pg (27.0-31.0); MEAN CORPUSCULAR HGB CONC 33.9 g/dL (33.0-37.0); MEAN PLATELET VOLUME 7.8 fL (7.2-11.7); MONO # 0.4 K/uL (0.0-0.8); MONO % 4.2 % (0.0-10.0); NEUT # 9.1 K/uL (1.8-7.0); NEUT % 91.6 % (50.0-75.0); NRBC % 0.1 % (0.0-2.0); PLATELET COUNT 247 K/uL (130-400); RBC 3.96 Mil/uL (4.40-5.90); RED CELL DISTRIBUTION WIDTH 20.1 % (11.5-14.5); WHITE BLOOD COUNT 9.9 K/uL (4.8-10.8)
[2018-06-24 06:26] LABS: ALT/SGPT 41 U/L (21-72); AST/SGOT 24 U/L (17-59); BLOOD UREA NITROGEN 21 mg/dL (9-20); CALCIUM 8.8 mg/dl (8.6-10.4); GFR NON-AFRICAN AMERICAN > 60
[2018-06-24] MEDS ORDERED: Potassium Chloride 20 mEq/15 ml LIQ UD PO ONE (07:39)
[2018-06-24] MEDS: guaiFENesin 200 mg/10 ml Syrup UD PO PRN ×3 (07:51→18:07)
[2018-06-24] MEDS: Vancomycin 1 gm/NS 200 ml 1 GM/200 ML BAG IVPB SCH ×2 (07:51→19:44)
[2018-06-24 08:28] LABS: METAMYELOCYTE 1 % (0-0); MYELOCYTE 1 % (0-0)
[2018-06-24 08:29] LABS: ANISOCYTOSIS MODERATE; BANDS 1 % (0-2); LYMPHOCYTE 3 % (20-40); MONOCYTE 6 % (0-10); NEUTROPHIL 88 % (50-75); PLATELET ESTIMATE NORMAL (NORMAL); TOTAL CELLS COUNTED 100
--- NOTE | 2018-06-24 09:05 | CP.CCUPN ---
<Alvin Pantoja - Last Filed: 06/24/18 16:57> CCU Subjective - Physician Review Subjective (Free Text): ICU progress note Patient seen and examined at bedside. Patient more awake and alert currently. Offers no complaints at this time. 06/24/18 16:57 CCU Objective - Vital Signs / Intake & Output Vital Signs (Last 4 hours): Vital Signs Temp Pulse Resp BP Pulse Ox 06/24/18 08:01 94 H 28 H 149/80 94 L 06/24/18 08:00 97.5 F L 90 25 H 95 06/24/18 07:01 82 18 148/64 100 06/24/18 06:01 86 18 130/73 97 06/24/18 05:12 87 29 H 137/73 96 Intake and Output (Last 8hrs): Intake & Output 06/23/18 06/24/18 06/24/18 22:59 06:59 14:59 Intake Total 300 250 530 Output Total 1000 900 Balance -700 -650 530 Weight 100 lb Intake: Intake, IV Amount 250 200 410 Left Proximal Port 250 50 Internal Jugular Left Wrist 150 400 right hand 10 Oral 50 50 120 Output: Urine 1000 900 Condom 1000 900 Other: # Bowel Movements 1 - Physical Exam Head: Positive for: Atraumatic, Normocephalic Pupils: Positive for: PERRL. Negative for: Non-Reactive, Pinpoint Extroacular Muscles: Positive for: EOMI (Follows staff with eyes) Conjunctiva: Positive for: Normal. Negative for: Injected, Icteric Mouth: Positive for: Moist Mucous Membranes, Other (central incisor on right found dislodged in mouth. no active bleeding noted from site. ) Nose (Internal): Positive for: No Active Bleeding. Negative for: Epistaxis Neck: Positive for: Normal Range of Motion, Trachea Midline. Negative for: JVD Respiratory/Chest: Positive for: Rhonchi (Producing thick white phlegm). Negative for: Wheezes, Rales Cardiovascular: Positive for: Regular Rate and Rhythm, Normal S1, S2, Peripheal Pulses Present. Negative for: Irregular Rhythm, Tachycardic, Bradycardic Abdomen: Positive for: Normal Bowel Sounds. Negative for: Tenderness (abdomen is soft), Distention Upper Extremity: Positive for: Normal Inspection, NORMAL PULSES. Negative for: Edema Lower Extremity: Positive for: Normal Inspection, NORMAL PULSES. Negative for: Edema Neurological: Positive for: Motor Func Grossly Intact Skin: Positive for: Warm, Dry, Normal Color Psychiatric: Positive for: Alert, Other (More alert and awake) - Medications Active Medications: Active Medications Generic Name Dose Route Start Last Admin Trade Name Freq PRN Reason Stop Dose Admin Albuterol/Ipratropium 3 ml 06/15/18 00:00 06/24/18 07:33 Duoneb 3 Mg/0.5 Mg (3 Ml) Ud INH 3 ml RQ4 MAYANK Administration Diltiazem HCl 60 mg 06/22/18 17:00 06/24/18 04:29 Cardizem PO 60 mg Q6H MAYANK Administration Folic Acid 1 mg 06/18/18 10:00 06/23/18 09:46 Folic Acid PO 1 mg DAILY MAYANK Administration Guaifenesin 200 mg 06/22/18 15:34 06/24/18 07:51 Robitussin PO 200 mg Q4H PRN Administration Cough and congestion Piperacillin Sod/Tazobactam Sod 3.375 gm in 50 mls @ 100 mls/hr 06/14/18 23: 00 06/24/18 04:29 Zosyn 3.375 Gm Iv Premix IVPB 100 mls/hr Q6H MAYANK Administration Protocol Levetiracetam 250 mg/ Dextrose 102.5 mls @ 420 mls/hr 06/23/18 18:00 05:28 IVPB 420 mls/hr Q12H MAYANK Administration Vancomycin/Sodium Chloride 1 gm in 200 mls @ 133 mls/hr 06/23/18 20:00 07:51 Vancomycin 1 Gm/Ns 200 Ml IVPB 06/28/18 20:01 133 mls/hr Q12H MAYANK Administration Lisinopril 10 mg 06/19/18 15:15 06/23/18 09:45 Zestril PO 10 mg DAILY MAYANK Administration Methylprednisolone 40 mg 06/20/18 09:00 06/24/18 08:59 Solu-Medrol IV 40 mg Q8H MAYANK Administration Multivitamins/Vitamin C 5 ml 06/18/18 10:00 06/23/18 09:46 Multi-Delyn Liquid PO 5 ml DAILY MAYANK Administration Pantoprazole Sodium 40 mg 06/23/18 10:00 06/23/18 21:22 Protonix Ec Tab PO 40 mg Q12 MAYANK Administration Saccharomyces Boulardii 250 mg 06/24/18 10:00 Florastor PO BID MAYANK Sucralfate 1 gm 06/11/18 18:00 06/23/18 21:22 Carafate Oral Susp PO 1 gm QID MAYANK Administration Thiamine HCl 100 mg 06/18/18 10:00 06/23/18 17:14 Vitamin B1 Tab PO 100 mg BID MAYANK Administration - Patient Studies Lab Studies: Microbiology Studies 06/22/18 15:47 Gram Stain - Final Sputum Sputum Culture - Final Klebsiella Pneumoniae Ssp Pneu Lab Studies 06/24/18 06/24/18 06/23/18 Range/Units 06:02 06:01 06:26 WBC 9.9 (4.8-10.8) K/uL RBC 3.96 L (4.40-5.90) Mil/uL Hgb 12.0 (12.0-18.0) g/dL Hct 35.5 (35.0-51.0) % MCV 89.8 (80.0-94.0) fL MCH 30.4 (27.0-31.0) pg MCHC 33.9 (33.0-37.0) g/dL RDW 20.1 H (11.5-14.5) % Plt Count 247 (130-400) K/uL MPV 7.8 (7.2-11.7) fL Neut % (Auto) 91.6 H (50.0-75.0) % Lymph % (Auto) 3.9 L (20.0-40.0) % [place] % (Auto) 4.2 (0.0-10.0) % Eos % (Auto) 0.0 (0.0-4.0) % Baso % (Auto) 0.3 (0.0-2.0) % Neut # (Auto) 9.1 H (1.8-7.0) K/uL Lymph # (Auto) 0.4 L (1.0-4.3) K/uL [place] # (Auto) 0.4 (0.0-0.8) K/uL Eos # (Auto) 0.0 (0.0-0.7) K/uL Baso # (Auto) 0.0 (0.0-0.2) K/uL Neutrophils % (Manual) 88 H 94 H (50-75) % Band Neutrophils % 1 1 (0-2) % Lymphocytes % (Manual) 3 L 3 L (20-40) % Monocytes % (Manual) 6 2 (0-10) % Eosinophils % (Manual) TEST NOT PERFORMED Metamyelocytes % 1 H (0-0) % Myelocytes % 1 H (0-0) % Platelet Estimate Normal Normal (NORMAL) Anisocytosis (manual) Moderate Slight Sodium 143 (132-148) mmol/L Potassium 3.2 L (3.6-5.2) mmol/L Chloride 107 (98-107) mmol/L Carbon Dioxide 26 (22-30) mmol/L Anion Gap 14 (10-20) BUN 21 H (9-20) mg/dL Creatinine 0.8 (0.8-1.5) mg/dL Est GFR ( Amer) > 60 Est GFR (Non-Af Amer) > 60 Random Glucose 153 H (75-110) mg/dL Calcium 8.8 (8.6-10.4) mg/dl Phosphorus 3.3 (2.5-4.5) mg/dL Magnesium 1.7 (1.6-2.3) mg/dL Total Bilirubin 0.5 (0.2-1.3) mg/dL AST 24 (17-59) U/L ALT 41 (21-72) U/L Alkaline Phosphatase 98 (38-126) U/L Total Protein 6.0 L (6.3-8.3) g/dL Albumin 3.0 L (3.5-5.0) g/dL Globulin 3.0 (2.2-3.9) gm/dL Albumin/Globulin Ratio 1.0 (1.0-2.1) Laboratory Results - last 24 hr 06/23/18 06/24/18 06/24/18 06:26 06:01 06:02 WBC 9.9 RBC 3.96 L Hgb 12.0 Hct 35.5 MCV 89.8 MCH 30.4 MCHC 33.9 RDW 20.1 H Plt Count 247 MPV 7.8 Neut % (Auto) 91.6 H Lymph % (Auto) 3.9 L [place] % (Auto) 4.2 Eos % (Auto) 0.0 Baso % (Auto) 0.3 Neut # (Auto) 9.1 H Lymph # (Auto) 0.4 L [place] # (Auto) 0.4 Eos # (Auto) 0.0 Baso # (Auto) 0.0 Neutrophils % (Manual) 94 H 88 H Band Neutrophils % 1 1 Lymphocytes % (Manual) 3 L 3 L Monocytes % (Manual) 2 6 Eosinophils % (Manual) TEST NOT PERFORMED Metamyelocytes % 1 H Myelocytes % 1 H Platelet Estimate Normal Normal Anisocytosis (manual) Slight Moderate Sodium 143 Potassium 3.2 L Chloride 107 Carbon Dioxide 26 Anion Gap 14 BUN 21 H Creatinine 0.8 Est GFR ( Amer) > 60 Est GFR (Non-Af Amer) > 60 Random Glucose 153 H Calcium 8.8 Phosphorus 3.3 Magnesium 1.7 Total Bilirubin 0.5 AST 24 ALT 41 Alkaline Phosphatase 98 Total Protein 6.0 L Albumin 3.0 L Globulin 3.0 Albumin/Globulin Ratio 1.0 Fingerstick Blood Sugar Results: 158 Critical Care Progress Note - Nutrition Nutrition: Nutrition Category Date Time Status Dysphagia/Modified Consistency Diet [DIET] Diets 06/18/18 Lunch Active Assessment/Plan - Assessment and Plan (Free Text) Assessment: 52 year old male with history of alcohol use disorder, seizure disorder, peptic ulcer disease, partial gastrectomy, COPD and hiatal hernia who came in for PEA cardiac arrest 06/10. Patient had a seizure and was found in PEA by EMS, coded and intubated in the field, 2x PEA arrests after arrival resolved with CPR, started on Levophed after 2nd ROSC inhouse. Patient found to have upper GI bleed , s/p bedside EGD, 1 ulcer clipped by GI. Now extubated, no longer on Precedex and Librium. Plan: Neuro: Not on sedation Patient currently on O2 via NC History of alcohol use disorder and seizure disorder Continue Folic acid and Thiamine given history of alcohol use Keppra dosage lowered to 250mg IV Q12 Keppra level ordered f/u EEG (06/15) shows an abnormal awake and drowsy EEG which is very slow, indicating encephalopathy or medication effect. Recommend repeat EEG off sedation. Neuro Dr. Rubi consulted, signed off case 06/16 Cardiovascular: ECHO 06/11: EF of 45-50%, Left ventricular diastolic function is abnormal. Transmitral doppler flow pattern is grade I-abnormal relaxation pattern. trace to mild tricuspid regurgitation. Troponin negative HR low 100s Cardizem 60mg Q6 Lisinopril 10mg daily Cardiology Dr. Iglesias consulted, recs appreciated Pulmonary: On O2 NC Duonebs Q4 MAYANK Robitussin 200mg Q4 PRN Solumedrol 20mg IV Q8 CXR 06/23 Small right pleural effusion. Left basilar linear scar/ subsegmental atelectasis. No acute infiltrate. Chest CTA (06/14) showed NO evidence of PE. Extensive right lower lobe consolidation/atelectasis with lesser atelectasis in the right middle lobe and lingula. Multifocal ground-glass opacity. Possible infectious etiology. Fluid/ secretion in right lower lobe bronchus and possible right upper lobe bronchus. Consider aspiration as etiology. Mild mediastinal and right hilar lymphadenopathy. Continue Zosyn 3.375g IV, Vanco 1g Q12 GI: S/p gastric ulcer clipped 06/11 Protonix 40mg IV Q12 carafate 1mg PO QID GI recommends IR and surgery for further bleeding since patient is difficult to treat endoscopically. GI signed off Renal BUN 21 /Cr 0.8 Maintain euvolemia Monitor and replete electrolytes as needed, K repleted Nephrology Dr. Shafer, help appreciated ID Afebrile, White count 9.9 Urine culture 06/13 final no growth (06/11 culture: acintobacter baumannii) Blood cultures 06/12 final no growth (06/11 1 of 2 blood cultures positive for coag negative staph in aerobic bottle only, possible contamination) 06/16 sputum + yeast 06/22 sputum culture + Klebsiella, sensitive to Zosyn Continue Zosyn, Vanco Florastor 250mg PO BID Heme: Hb 12.0/ Hct 35.5 anticoagulation contraindicated given recent bleeding GI ulcer no active signs of bleeding appreciated at this time Endo: maintain euglycemia Integumentary: stage 2 ulcer on sacrum previously identified continue medihoney and optoform dressing as per primary team wound care has been consulted Dental: Right central incisor found in mouth by nurse No dental consult available to see patient while hospitalized Case discussed with Dr. Morfin <Sandeep Morfin - Last Filed: 06/24/18 17:39> CCU Subjective - Physician Review Critical Care Time Spent (in minutes): 30 CCU Objective - Vital Signs / Intake & Output Vital Signs (Last 4 hours): Vital Signs Temp Pulse Resp BP Pulse Ox 06/24/18 16:01 89 24 144/79 95 06/24/18 16:00 92 H 29 H 96 06/24/18 15:57 97.6 F 96 06/24/18 15:01 97 H 32 H 147/76 97 06/24/18 15:00 97 H 36 H 97 06/24/18 14:02 118 H 155/91 H 06/24/18 14:00 112 H 32 H Intake and Output (Last 8hrs): Intake & Output 06/24/18 06/24/18 06/24/18 06:59 14:59 22:59 Intake Total 250 1280 150 Output Total 900 825 Balance -650 455 150 Weight 100 lb Intake: Intake, IV Amount 200 510 Left Proximal Port 50 Internal Jugular Left Wrist 150 500 right hand 10 Oral 50 770 150 Output: Urine 900 825 Condom 900 825 Other: # Bowel Movements 1 0 - Medications Active Medications: Active Medications Generic Name Dose Route Start Last Admin Trade Name Freq PRN Reason Stop Dose Admin Albuterol/Ipratropium 3 ml 06/15/18 00:00 06/24/18 16:12 Duoneb 3 Mg/0.5 Mg (3 Ml) Ud INH 3 ml RQ4 MAYANK Administration Diltiazem HCl 60 mg 06/22/18 17:00 06/24/18 17:05 Cardizem PO 60 mg Q6H MAYANK Administration Folic Acid 1 mg 06/18/18 10:00 06/24/18 09:32 Folic Acid PO 1 mg DAILY MAYANK Administration Guaifenesin 200 mg 06/22/18 15:34 06/24/18 14:21 Robitussin PO 200 mg Q4H PRN Administration Cough and congestion Levetiracetam 250 mg/ Dextrose 102.5 mls @ 420 mls/hr 06/23/18 18:00 05:28 IVPB 420 mls/hr Q12H MAYANK Administration Vancomycin/Sodium Chloride 1 gm in 200 mls @ 133 mls/hr 06/23/18 20:00 07:51 Vancomycin 1 Gm/Ns 200 Ml IVPB 06/28/18 20:01 133 mls/hr Q12H MAYANK Administration Lisinopril 10 mg 06/19/18 15:15 06/24/18 09:32 Zestril PO 10 mg DAILY MAYANK Administration Methylprednisolone 20 mg 06/24/18 17:00 06/24/18 17:04 Solu-Medrol IV 20 mg Q8H MAYANK Administration Multivitamins/Vitamin C 5 ml 06/18/18 10:00 06/24/18 09:35 Multi-Delyn Liquid PO 5 ml DAILY MAYANK Administration Pantoprazole Sodium 40 mg 06/23/18 10:00 06/24/18 09:32 Protonix Ec Tab PO 40 mg Q12 MAYANK Administration Saccharomyces Boulardii 250 mg 06/24/18 10:00 06/24/18 17:05 Florastor PO 250 mg BID MAYANK Administration Sucralfate 1 gm 06/11/18 18:00 06/24/18 17:06 Carafate Oral Susp PO 1 gm QID MAYANK Administration Thiamine HCl 100 mg 06/18/18 10:00 06/24/18 17:03 Vitamin B1 Tab PO 100 mg BID MAYANK Administration - Patient Studies Lab Studies: Microbiology Studies 06/22/18 15:47 Gram Stain - Final Sputum Sputum Culture - Final Klebsiella Pneumoniae Ssp Pneu Lab Studies 06/24/18 06/24/18 Range/Units 06:02 06:01 WBC 9.9 (4.8-10.8) K/uL RBC 3.96 L (4.40-5.90) Mil/uL Hgb 12.0 (12.0-18.0) g/dL Hct 35.5 (35.0-51.0) % MCV 89.8 (80.0-94.0) fL MCH 30.4 (27.0-31.0) pg MCHC 33.9 (33.0-37.0) g/dL RDW 20.1 H (11.5-14.5) % Plt Count 247 (130-400) K/uL MPV 7.8 (7.2-11.7) fL Neut % (Auto) 91.6 H (50.0-75.0) % Lymph % (Auto) 3.9 L (20.0-40.0) % [place] % (Auto) 4.2 (0.0-10.0) % Eos % (Auto) 0.0 (0.0-4.0) % Baso % (Auto) 0.3 (0.0-2.0) % Neut # (Auto) 9.1 H (1.8-7.0) K/uL Lymph # (Auto) 0.4 L (1.0-4.3) K/uL [place] # (Auto) 0.4 (0.0-0.8) K/uL Eos # (Auto) 0.0 (0.0-0.7) K/uL Baso # (Auto) 0.0 (0.0-0.2) K/uL Neutrophils % (Manual) 88 H (50-75) % Band Neutrophils % 1 (0-2) % Lymphocytes % (Manual) 3 L (20-40) % Monocytes % (Manual) 6 (0-10) % Eosinophils % (Manual) TEST NOT PERFORMED Metamyelocytes % 1 H (0-0) % Myelocytes % 1 H (0-0) % Platelet Estimate Normal (NORMAL) Anisocytosis (manual) Moderate Sodium 143 (132-148) mmol/L Potassium 3.2 L (3.6-5.2) mmol/L Chloride 107 (98-107) mmol/L Carbon Dioxide 26 (22-30) mmol/L Anion Gap 14 (10-20) BUN 21 H (9-20) mg/dL Creatinine 0.8 (0.8-1.5) mg/dL Est GFR ( Amer) > 60 Est GFR (Non-Af Amer) > 60 Random Glucose 153 H (75-110) mg/dL Calcium 8.8 (8.6-10.4) mg/dl Phosphorus 3.3 (2.5-4.5) mg/dL Magnesium 1.7 (1.6-2.3) mg/dL Total Bilirubin 0.5 (0.2-1.3) mg/dL AST 24 (17-59) U/L ALT 41 (21-72) U/L Alkaline Phosphatase 98 (38-126) U/L Total Protein 6.0 L (6.3-8.3) g/dL Albumin 3.0 L (3.5-5.0) g/dL Globulin 3.0 (2.2-3.9) gm/dL Albumin/Globulin Ratio 1.0 (1.0-2.1) Laboratory Results - last 24 hr 06/24/18 06/24/18 06:01 06:02 WBC 9.9 RBC 3.96 L Hgb 12.0 Hct 35.5 MCV 89.8 MCH 30.4 MCHC 33.9 RDW 20.1 H Plt Count 247 MPV 7.8 Neut % (Auto) 91.6 H Lymph % (Auto) 3.9 L [place] % (Auto) 4.2 Eos % (Auto) 0.0 Baso % (Auto) 0.3 Neut # (Auto) 9.1 H Lymph # (Auto) 0.4 L [place] # (Auto) 0.4 Eos # (Auto) 0.0 Baso # (Auto) 0.0 Neutrophils % (Manual) 88 H Band Neutrophils % 1 Lymphocytes % (Manual) 3 L Monocytes % (Manual) 6 Eosinophils % (Manual) TEST NOT PERFORMED Metamyelocytes % 1 H Myelocytes % 1 H Platelet Estimate Normal Anisocytosis (manual) Moderate Sodium 143 Potassium 3.2 L Chloride 107 Carbon Dioxide 26 Anion Gap 14 BUN 21 H Creatinine 0.8 Est GFR ( Amer) > 60 Est GFR (Non-Af Amer) > 60 Random Glucose 153 H Calcium 8.8 Phosphorus 3.3 Magnesium 1.7 Total Bilirubin 0.5 AST 24 ALT 41 Alkaline Phosphatase 98 Total Protein 6.0 L Albumin 3.0 L Globulin 3.0 Albumin/Globulin Ratio 1.0 Critical Care Progress Note - Nutrition Nutrition: Nutrition Category Date Time Status Dysphagia/Modified Consistency Diet [DIET] Diets 06/18/18 Lunch Active Attending/Attestation - Attestation I have personally seen and examined this patient.: Yes I have fully participated in the care of the patient.: Yes I have reviewed all pertinent clinical information: Yes Notes (Text): 06/24/18 17:38 Patient seen and examined in the intensive care unit. Assessment and plan as per resident note Continue ICU observation Continue antibiotics Patient is more appropriate and responsive
[2018-06-24] MEDS: Sucralfate 1 gm/10 ml Oral Susp UD PO SCH ×4 (09:32→21:11)
[2018-06-24] MEDS: Pantoprazole 40 mg EC Tab PO SCH ×2 (09:32→21:11)
[2018-06-24] MEDS: Multiple Vitamins Oral Solution PO SCH (09:35)
[2018-06-24] MEDS: Saccharomyces Boulardi 250 mg Cap PO SCH ×2 (09:35→17:05)
--- NOTE | 2018-06-24 09:37 | US ---
Abdominal ultrasound History: Transaminitis. Comparison: CT dated 06/11/2018 Technique: Real-time sonography was performed through the abdomen. Findings: Liver: 17.6 centimeters in length. Increased echogenicity of the hepatic parenchymal cortex suggestive for fatty infiltration versus hepatic parenchymal disease. Clinical correlation. Gallbladder: Cholelithiasis. Top normal wall thickness of 3 millimeters. Negative sonographic La's sign. Prominent common bile duct measuring up to 8 millimeters, prominent. Limited visualization of the pancreas. Spleen measures 10.5 centimeters in length, within normal limits. Visualized aorta and IVC are preserved. Right kidney: 10.9 x 4.5 x 4.9 centimeters. Increased echogenicity of the renal parenchymal cortex. No calculi or hydronephrosis. Left Kidney: 11.1 x 4.7 x 5.9 centimeters. Increased echogenicity of the renal parenchymal cortex. No calculi or hydronephrosis. Lower pole hypoechoic cyst measuring 1.6 x 1.3 x 1.7 centimeters. Impression: Technically limited portable study. 1. Prominent liver measuring 17.6 centimeters in length with associated increased echogenicity of the hepatic parenchymal cortex suggestive for fatty infiltration versus hepatic parenchymal disease. Clinical correlation. 2. Cholelithiasis. Top normal wall thickness of gallbladder wall measuring up to 3 millimeters. Negative sonographic La's sign. 3. Dilated common bile duct measuring up to 8 millimeters. Clinical correlation. 4. Limited visualization of the pancreas. 5. Increased echogenicity of the bilateral renal parenchymal cortices suggestive for medical renal disease. Clinical correlation. 6. Right renal perinephric fluid. Clinical correlation. 7. 1.7 centimeter lower pole left renal cyst.
--- NOTE | 2018-06-24 17:39 | CP.PCM.PN ---
Subjective - Date & Time of Evaluation Date of Evaluation: 06/24/18 Time of Evaluation: 17:35 - Subjective Subjective: Medical Attending Note: Patient seen and examined at bedside. Patient understands he is at the hospital but remains confused. He has already yelled at me to "get the fuck out of here, I dont want to listen to you anymore ". I have explained to him that this is the best I have see him and then he has continue to tell me his dinner demands though he is on dysphagia diet which include "captain crunch cereal, 2 iced teas, ice cream". Objective - Vital Signs/Intake and Output Vital Signs (last 24 hours): Temp Pulse Resp BP Pulse Ox 97.6 F 89 24 144/79 95 06/24/18 15:57 06/24/18 16:01 06/24/18 16:01 06/24/18 16:01 06/24/18 16:01 Intake and Output: 06/24/18 06/24/18 06:59 18:59 Intake Total 500 1430 Output Total 1900 825 Balance -1400 605 - Medications Medications: Current Medications Albuterol/Ipratropium (Duoneb 3 Mg/0.5 Mg (3 Ml) Ud) 3 ml INH RQ4 [facility] Last Admin: 06/24/18 16:12 Dose: 3 ml Diltiazem HCl (Cardizem) 60 mg PO Q6H [facility] Last Admin: 06/24/18 17:05 Dose: 60 mg Folic Acid (Folic Acid) 1 mg PO DAILY [facility] Last Admin: 06/24/18 09:32 Dose: 1 mg Guaifenesin (Robitussin) 200 mg PO Q4H PRN PRN Reason: Cough and congestion Last Admin: 06/24/18 14:21 Dose: 200 mg Levetiracetam 250 mg/ Dextrose 102.5 mls @ 420 mls/hr IVPB Q12H [facility] Last Admin: 06/24/18 05:28 Dose: 420 mls/hr Vancomycin/Sodium Chloride (Vancomycin 1 Gm/Ns 200 Ml) 1 gm in 200 mls @ 133 mls/hr IVPB Q12H [facility] Stop: 06/28/18 20:01 Last Admin: 06/24/18 07:51 Dose: 133 mls/hr Lisinopril (Zestril) 10 mg PO DAILY [facility] Last Admin: 06/24/18 09:32 Dose: 10 mg Methylprednisolone (Solu-Medrol) 20 mg IV Q8H [facility] Last Admin: 06/24/18 17:04 Dose: 20 mg Multivitamins/Vitamin C (Multi-Delyn Liquid) 5 ml PO DAILY [facility] Last Admin: 06/24/18 09:35 Dose: 5 ml Pantoprazole Sodium (Protonix Ec Tab) 40 mg PO Q12 [facility] Last Admin: 06/24/18 09:32 Dose: 40 mg Saccharomyces Boulardii (Florastor) 250 mg PO BID [facility] Last Admin: 06/24/18 17:05 Dose: 250 mg Sucralfate (Carafate Oral Susp) 1 gm PO QID [facility] Last Admin: 06/24/18 17:06 Dose: 1 gm Thiamine HCl (Vitamin B1 Tab) 100 mg PO BID [facility] Last Admin: 06/24/18 17:03 Dose: 100 mg - Labs Labs: 06/24/18 06:02 06/24/18 06:01 PT 13.6 SECONDS (9.7-12.2) H 06/20/18 10:09 INR 1.2 06/20/18 10:09 APTT 40 SECONDS (21-34) H 06/10/18 23:37 - Constitutional Appears: Non-toxic, No Acute Distress, Unkempt, Agitated, Confused - Head Exam Head Exam: NORMAL INSPECTION - Eye Exam Eye Exam: EOMI - Respiratory Exam Respiratory Exam: Rales, Rhonchi, NORMAL BREATHING PATTERN. absent: Wheezes, Respiratory Distress - Cardiovascular Exam Cardiovascular Exam: REGULAR RHYTHM, +S1, +S2 - GI/Abdominal Exam GI & Abdominal Exam: Soft, Normal Bowel Sounds. absent: Distended, Firm, Guarding, Rigid, Tenderness, Rebound - Extremities Exam Extremities Exam: absent: Full ROM, Pedal Edema, Tenderness - Neurological Exam Neurological Exam: Alert, Awake. absent: Oriented x3 - Psychiatric Exam Psychiatric exam: Agitated - Skin Skin Exam: Dry, Normal Color, Warm Assessment and Plan (1) Cardiac arrest Status: Acute (2) Respiratory failure Status: Acute (3) Seizure Status: Acute (4) GI bleeding Status: Acute (5) Hyponatremia Status: Acute (6) Aspiration pneumonia Status: Acute (7) Encephalopathy Status: Acute (8) Prophylactic measure Status: Acute Attending/Attestation - Attestation I have personally seen and examined this patient.: Yes I have fully participated in the care of the patient.: Yes I have reviewed all pertinent clinical information, including history, physical exam and plan: Yes Notes (Text): Patient is on nasal cannula.Patient is coughing up secretions. Patient is not oriented. patient is not aware he is at the hospital and asks for his mother. Patient has cursed at me and his nurse throughout the day. He is required mittens. Patient's sputum culture shows Klebsiella sensitive Meropenem. Patient is off Librium/Precedex. Monitor mental status. White count has normalized. Assessment/Plan 1). Cardiopulmonary Arrest Assessment/Plan * Cardiology Dr. Iglesias meat boner and slicer-->help appreciated * PEA s/p ROSC NSR * Echocardiogram (06/12/18): ejection fraction: 45-50%, left ventricular diastolic function is abnormal. left atrium size looks normal right atrium size looks normal. trace to mild tricupsid regurgitaton * Solumedrol 40 mg IV Q8H (since 06/17/18) * EEG (06/15) shows an abnormal awake and drowsy EEG which is very slow, indicating encephalopathy or medication effect. Recommend repeat EEG off sedation 2). Hyponatremia Assessment/Plan * Nephrology Dr. Shafer on board-->help appreciated * Secondary to Alcohol Abuse * Received 3 NS boluses in ER * Seizure precautions * Normalized 3). Hypokalemia/Hypomagnesemia/Hypophosphotemia Assessment/Plan * Replete as needed 4). Metabolic Acidosis Assessment/Plan * Likely secondary to the Cadriopulmonary Arrest, GI bleed, Respiratory Distress * Resolved 5). Seizure Assessment/Plan * Neurology Dr. Richie Rubi on board-->help appreciated * Risk factor: heavy alcohol use and hyponatremia, hypomagnesium * Head CT (06/11/18): no acute intracranial abnormality. Chronic microvascular ischemic changes. sinus mucosal disease as above * He has a history of alcohol withdrawal seizures * Patient is off Precedex * Keppra 250 mg IV Q12H * Recommend EEG if mental status does not improve after extubation and once off precedex 6). Anemia likely secondary to GI Bleed History of Peptic Ulcer Disease Bleeding Ulcer Assessment/Plan * GI Dr. Ho on consult help appreciated * CT Chest/abdomen/pelvis (06/12/18): distended bowel suggesting an ileus. Markedly limited evaluation of the bowel without oral or intravenous contrast. Suggestion of prior Bilroth 2 procedure. Fluid filled dilatation of small bowel andproximal colon. Fluid filled dilatation of the small bowel and prozimal colon. Fluid in the descending colon without a sharp transition sozne. Portions of transverse colon were not well visualized. * Monitor H/H and transfuse as needed * Carafate 1g qid * S/P EGD POD: 2 anastomotic ulcers with visible vessel s/p APC and 5 clips, one ulcer with visible vessel and adherent clot was not intervened on due to adverse location--->If pt develops further bleeding will need IR and Surgery on board, difficult to treat endoscopically * Monitor H/H: received 2 units on 06/16/18 and is currently stable * protonix 40mg PO BID * No NSAIDS and strong history of alcohol abuse 7). Hypocalcemia Assessment/Plan * Monitor 8). Acute Respiratory Failure Aspiration Pneumonia Assessment/Plan * CT Chest 06/11/18: thinned walled cavity in the right upper lobe which may be the sequelae of prior infection 5mm subpleural nodule within the anterior right middle lobe. Focal consolidation within the inferior right middle lobe. Focal consolidation within the right lower lobe. Patchy ground glass opacities in both lungs which and nonspecific but may secondary to alectasis versus contusion versus pneumonitis. * Chest xray (06/23/18): small right pleural effusion. left basilar linear scar/ subsegmental atelectasis. no acute infiltrate. * Extubated 06/12/18 and Re-intubated on 06/14/18 and extubated 06/17/18 * Solumedrol 20 mg IV Q8H * Patient has productive cough. * Robotussin 200mg POq4H PRN cough and congestion * Zosyn 3.375 g IVPB Q6H (active since 06/14/18) * Vancomycin 1gram IV Q12H (resumed on 06/23/18) * Chest physiotherapy 9) Open Wounds on Sacrum Stage II Assessment/Plan * Turn [id number] * MediHoney with Optifoam Dressing * Latest wound care note: (06/22/18) WOUND CARE NOTE-Patient re-assessed; found to have improving MASD, Moisture associated skin damage to sacral/coccyx regions. Skin continues with blanchable erythema; erosions resolving. recommending to continue aloevesta protective ointment to entire sacral/coccyx regions 3x/day and prn for incontinent episodes. Must reposition this patient frequently to optimize offloading. Will continue to follow. 10) Bilateral Anterior Rib and Sternal Fractures Assessment/Plan * Noted on CT Chest * Secondary to CPR given cardiopulmonary arrest 11) Pneumonia Assessment/Plan * CT Chest 06/11/18: thinned walled cavity in the right upper lobe which may be the sequelae of prior infection 5mm subpleural nodule within the anterior right middle lobe. Focal consolidation within the inferior right middle lobe. Focal consolidation within the right lower lobe. Patchy ground glass opacities in both lungs which and nonspecific but may secondary to alectasis versus contusion versus pneumonitis. * Tracheal Aspirate 06/16/18 shows Yeast Species and Fluconazole 100 mg IV 1x/ day has been ordered through 07/02/18 * NO fevers and vitals are stable 12) Systolic and Diastolic Heart Failure * Echocardiogram 06/12/18 shows EF at 45-50%, left ventricular diastolic function abnormal with Grade I abnormal relaxation pattern, trace to mild ticuspid regurgitation * Lisinopril 10 mg PO 1x/day * Cardizem 60mg PO Q6H * Aspirin contraindication secondary to bleeding ulcer * F/U any recommendations from Cardiology Dr. Iglesias 13) Urinary tract infection-->resolved * Zosyn 3.375g IV Q8H (active since 06/11/18) * Repeat urine culture 06/13/18 showed NO growth 14) Bacteremia-->resolved * Repeat blood culture 06/12/18 is negative at 5 days 15) Alcoholism Alcoholic Liver Disease * Hx heavy use * Off Precedex * off Librium 25 mg PO Q8H 06/22/18 * MVI PO 1x/day * Thiamine 100mg PO BID * Folic acid 1mg PO daily * MVI 5 ml PO daily * Abdominal US report available in the EMR; limited but liver changes 16) Prophylactic measure * Protonix 40 mg PO Q12H * Lactobacillus 1 cap PO 2x/day * Chemical anticoagulation held secondary to GI bleed * Turn [id number] * Aspiration precautions * Seizure precautions * Wound care on board * PT/OT katherin
[2018-06-25] MEDS: Albuterol-Ipratrop 3 mg / 0.5 (3 ml) UD INH SCH ×6 (00:48→19:31)
[2018-06-25] MEDS: MethylPREDNISolone 40 mg Vial IV SCH ×3 (02:00→18:10)
[2018-06-25 06:49] LABS: BASO % 0.1 % (0.0-2.0); HEMOGLOBIN 10.9 g/dL (12.0-18.0); LYMPH # 0.4 K/uL (1.0-4.3); LYMPH % 3.4 % (20.0-40.0); MEAN CELL VOLUME 88.7 fL (80.0-94.0); MEAN CORPUSCULAR HEMOGLOBIN 30.7 pg (27.0-31.0); MEAN CORPUSCULAR HGB CONC 34.6 g/dL (33.0-37.0); MEAN PLATELET VOLUME 7.9 fL (7.2-11.7); MONO # 0.5 K/uL (0.0-0.8); MONO % 4.5 % (0.0-10.0); NEUT # 10.1 K/uL (1.8-7.0); PLATELET COUNT 260 K/uL (130-400); RBC 3.57 Mil/uL (4.40-5.90); RED CELL DISTRIBUTION WIDTH 20.1 % (11.5-14.5)
[2018-06-25 07:04] LABS: ALBUMIN 2.8 g/dL (3.5-5.0); ALT/SGPT 44 U/L (21-72); AST/SGOT 26 U/L (17-59); BLOOD UREA NITROGEN 21 mg/dL (9-20); CALCIUM 8.9 mg/dl (8.6-10.4); GFR NON-AFRICAN AMERICAN > 60
[2018-06-25] MEDS: Vancomycin 1 gm/NS 200 ml 1 GM/200 ML BAG IVPB SCH ×2 (07:40→20:37)
[2018-06-25 08:28] LABS: LYMPHOCYTE 4 % (20-40); MONOCYTE 7 % (0-10); NEUTROPHIL 89 % (50-75); TOTAL CELLS COUNTED 100
[2018-06-25 08:29] LABS: PLATELET ESTIMATE NORMAL (NORMAL)
[2018-06-25 08:30] LABS: ANISOCYTOSIS MODERATE; MICROCYTOSIS SLIGHT; OVALOCYTES SLIGHT; POIKILOCYTOSIS SLIGHT; TEARDROP CELLS SLIGHT
[2018-06-25 08:31] LABS: BURR CELLS SLIGHT; POLYCHROMIC SLIGHT; SCHISTOCYTES SLIGHT
[2018-06-25] MEDS: Sucralfate 1 gm/10 ml Oral Susp UD PO SCH ×4 (09:05→21:29)
[2018-06-25] MEDS: Saccharomyces Boulardi 250 mg Cap PO SCH ×2 (09:06→18:10)
[2018-06-25] MEDS: Pantoprazole 40 mg EC Tab PO SCH ×2 (09:06→21:28)
[2018-06-25] MEDS: Multiple Vitamins Oral Solution PO SCH (09:07)
[2018-06-25] MEDS: Meropenem 1 GM in Sodium Chloride 0.9% 100 ML IVPB SCH ×2 (10:24→18:25)
--- NOTE | 2018-06-25 16:02 | CP.PCM.PN ---
Subjective - Date & Time of Evaluation Date of Evaluation: 06/25/18 Time of Evaluation: 16:00 - Subjective Subjective: Medical Attending Note: Patient seen at bedside. Patient refuses examination. Patient is on mittens. Patient proceeds to be verbally abusive towards me and staff. He has told to "go fuck myself," "fuck you" "you are a cunt" "don't touch me" and equally verbally harsh verbage to the staff. He has requested beer with dinner. I have explained to him he cannot have alcohol, he has a history of ulcers and he can bleed". I have asked him if he is able to cough up his secretions given he is high risk for being re-intubated; which he sighs and is unable to. Note unable to complete full psychial given patient's refusal and aggression. Objective - Vital Signs/Intake and Output Vital Signs (last 24 hours): Temp Pulse Resp BP Pulse Ox 97.6 F 100 H 17 148/74 95 06/25/18 08:00 06/25/18 10:01 06/25/18 10:01 06/25/18 10:01 06/25/18 10:01 Intake and Output: 06/25/18 06/25/18 06:59 18:59 Intake Total 400 340 Output Total 800 Balance -400 340 - Medications Medications: Current Medications Albuterol/Ipratropium (Duoneb 3 Mg/0.5 Mg (3 Ml) Ud) 3 ml INH RQ4 [facility] Last Admin: 06/25/18 11:36 Dose: 3 ml Diltiazem HCl (Cardizem) 60 mg PO Q6H [facility] Last Admin: 06/25/18 10:24 Dose: 60 mg Folic Acid (Folic Acid) 1 mg PO DAILY [facility] Last Admin: 06/25/18 09:06 Dose: 1 mg Guaifenesin (Robitussin) 200 mg PO Q4H PRN PRN Reason: Cough and congestion Last Admin: 06/24/18 18:07 Dose: 200 mg Levetiracetam 250 mg/ Dextrose 102.5 mls @ 420 mls/hr IVPB Q12H [facility] Last Admin: 06/25/18 05:27 Dose: 420 mls/hr Vancomycin/Sodium Chloride (Vancomycin 1 Gm/Ns 200 Ml) 1 gm in 200 mls @ 133 mls/hr IVPB Q12H [facility] Stop: 06/28/18 20:01 Last Admin: 06/25/18 07:40 Dose: 133 mls/hr Meropenem 1 gm/ Sodium (Chloride) 100 mls @ 100 mls/hr IVPB Q8H [facility] PRN Reason: Protocol Last Admin: 06/25/18 10:24 Dose: 100 mls/hr Lisinopril (Zestril) 10 mg PO DAILY [facility] Last Admin: 06/25/18 09:05 Dose: 10 mg Methylprednisolone (Solu-Medrol) 20 mg IV Q8H [facility] Last Admin: 06/25/18 09:07 Dose: 20 mg Multivitamins/Vitamin C (Multi-Delyn Liquid) 5 ml PO DAILY [facility] Last Admin: 06/25/18 09:07 Dose: 5 ml Pantoprazole Sodium (Protonix Ec Tab) 40 mg PO Q12 [facility] Last Admin: 06/25/18 09:06 Dose: 40 mg Saccharomyces Boulardii (Florastor) 250 mg PO BID [facility] Last Admin: 06/25/18 09:06 Dose: 250 mg Sucralfate (Carafate Oral Susp) 1 gm PO QID [facility] Last Admin: 06/25/18 14:25 Dose: 1 gm Thiamine HCl (Vitamin B1 Tab) 100 mg PO BID [facility] Last Admin: 06/25/18 09:05 Dose: 100 mg - Labs Labs: 06/25/18 06:34 06/25/18 06:28 PT 13.6 SECONDS (9.7-12.2) H 06/20/18 10:09 INR 1.2 06/20/18 10:09 APTT 40 SECONDS (21-34) H 06/10/18 23:37 - Constitutional Appears: Non-toxic, Unkempt, Combative, Agitated, Chronically Ill - Head Exam Head Exam: NORMAL INSPECTION - Neurological Exam Neurological Exam: Awake - Psychiatric Exam Psychiatric exam: Agitated, Anxious Assessment and Plan (1) Cardiac arrest Status: Acute (2) Respiratory failure Status: Acute (3) Seizure Status: Acute (4) GI bleeding Status: Acute (5) Hyponatremia Status: Acute (6) Aspiration pneumonia Status: Acute (7) Encephalopathy Status: Acute (8) Prophylactic measure Status: Acute Attending/Attestation - Attestation I have personally seen and examined this patient.: Yes I have fully participated in the care of the patient.: Yes I have reviewed all pertinent clinical information, including history, physical exam and plan: Yes Notes (Text): Patient seen, examined, and case discussed with ICU. Note: patient needs secretions; risk for aspiration pneumonia. ID on case; has switched to Meropenem for aspiration pneumonia. If patient continues with aggression, confusion, etc, will consider possible psych evaluation. Assessment/Plan 1). Cardiopulmonary Arrest Assessment/Plan * Cardiology Dr. Iglesias salesperson hosiery-->help appreciated * PEA s/p ROSC NSR * Echocardiogram (06/12/18): ejection fraction: 45-50%, left ventricular diastolic function is abnormal. left atrium size looks normal right atrium size looks normal. trace to mild tricupsid regurgitaton * Solumedrol 40 mg IV Q8H (since 06/17/18) * EEG (06/15) shows an abnormal awake and drowsy EEG which is very slow, indicating encephalopathy or medication effect. Recommend repeat EEG off sedation 2). Hyponatremia Assessment/Plan * Nephrology Dr. Shafer on board-->help appreciated * Secondary to Alcohol Abuse * Received 3 NS boluses in ER * Seizure precautions * Normalized 3). Hypokalemia/Hypomagnesemia/Hypophosphotemia Assessment/Plan * Replete as needed 4). Metabolic Acidosis Assessment/Plan * Likely secondary to the Cadriopulmonary Arrest, GI bleed, Respiratory Distress * Resolved 5). Seizure Assessment/Plan * Neurology Dr. Richie Rubi on board-->help appreciated * Risk factor: heavy alcohol use and hyponatremia, hypomagnesium * Head CT (06/11/18): no acute intracranial abnormality. Chronic microvascular ischemic changes. sinus mucosal disease as above * He has a history of alcohol withdrawal seizures * Patient is off Precedex * Keppra 250 mg IV Q12H * Recommend EEG if mental status does not improve after extubation and once off precedex 6). Anemia likely secondary to GI Bleed History of Peptic Ulcer Disease Bleeding Ulcer Assessment/Plan * GI Dr. Ho on consult help appreciated * CT Chest/abdomen/pelvis (06/12/18): distended bowel suggesting an ileus. Markedly limited evaluation of the bowel without oral or intravenous contrast. Suggestion of prior Bilroth 2 procedure. Fluid filled dilatation of small bowel andproximal colon. Fluid filled dilatation of the small bowel and prozimal colon. Fluid in the descending colon without a sharp transition sozne. Portions of transverse colon were not well visualized. * Monitor H/H and transfuse as needed * Carafate 1g qid * S/P EGD POD: 2 anastomotic ulcers with visible vessel s/p APC and 5 clips, one ulcer with visible vessel and adherent clot was not intervened on due to adverse location--->If pt develops further bleeding will need IR and Surgery on board, difficult to treat endoscopically * Monitor H/H: received 2 units on 06/16/18 and is currently stable * protonix 40mg PO BID * No NSAIDS and strong history of alcohol abuse 7). Hypocalcemia Assessment/Plan * Monitor 8). Acute Respiratory Failure Aspiration Pneumonia Assessment/Plan * CT Chest 06/11/18: thinned walled cavity in the right upper lobe which may be the sequelae of prior infection 5mm subpleural nodule within the anterior right middle lobe. Focal consolidation within the inferior right middle lobe. Focal consolidation within the right lower lobe. Patchy ground glass opacities in both lungs which and nonspecific but may secondary to alectasis versus contusion versus pneumonitis. * Chest xray (06/23/18): small right pleural effusion. left basilar linear scar/ subsegmental atelectasis. no acute infiltrate. * Extubated 06/12/18 and Re-intubated on 06/14/18 and extubated 06/17/18 * Solumedrol 20 mg IV Q8H * Patient has productive cough. * Robotussin 200mg POq4H PRN cough and congestion * Chest physiotherapy * Meropenem 1gram IV Q8H (active since 06/24/18) * Vancomycin 1 gram IV Q12H (active since 06/23/18) 9) Open Wounds on Sacrum Stage II Assessment/Plan * Turn [id number] * MediHoney with Optifoam Dressing * Latest wound care note: (06/22/18) WOUND CARE NOTE-Patient re-assessed; found to have improving MASD, Moisture associated skin damage to sacral/coccyx regions. Skin continues with blanchable erythema; erosions resolving. recommending to continue aloevesta protective ointment to entire sacral/coccyx regions 3x/day and prn for incontinent episodes. Must reposition this patient frequently to optimize offloading. Will continue to follow. 10) Bilateral Anterior Rib and Sternal Fractures Assessment/Plan * Noted on CT Chest * Secondary to CPR given cardiopulmonary arrest 11) Systolic and Diastolic Heart Failure * Echocardiogram 06/12/18 shows EF at 45-50%, left ventricular diastolic function abnormal with Grade I abnormal relaxation pattern, trace to mild ticuspid regurgitation * Lisinopril 10 mg PO 1x/day * Cardizem 60mg PO Q6H * Aspirin contraindication secondary to bleeding ulcer 12) Urinary tract infection-->resolved * Zosyn 3.375g IV Q8H (active since 06/11/18) * Repeat urine culture 06/13/18 showed NO growth 13) Bacteremia-->resolved * Repeat blood culture 06/12/18 is negative at 5 days 14) Alcoholism Alcoholic Liver Disease * Hx heavy use * Off Precedex * off Librium 25 mg PO Q8H 06/22/18 * MVI PO 1x/day * Thiamine 100mg PO BID * Folic acid 1mg PO daily * MVI 5 ml PO daily * Abdominal US report available in the EMR; limited but liver changes 15) Prophylactic measure * Protonix 40 mg PO Q12H * Lactobacillus 1 cap PO 2x/day * Chemical anticoagulation held secondary to GI bleed * Turn [id number] * Aspiration precautions * Seizure precautions * Wound care on board * PT/OT katherin
--- NOTE | 2018-06-25 16:35 | CP.CCUPN ---
<Alessandro Petty - Last Filed: 06/25/18 17:06> CCU Subjective - Physician Review Subjective (Free Text): 06/25/18 16:33 Patient was seen and examined at beside in the ICU. Remains off sedation, remains confused and oriented only to self. Still has mitts to prevent pulling lines. Repeatedly insists that his sister is standing on other side of sliding glass door (when a computer is resting), waiting to be let out. No acute events reported from overnight. CCU Objective - Vital Signs / Intake & Output Intake and Output (Last 8hrs): Intake & Output 06/25/18 06/25/18 06/25/18 06:59 14:59 22:59 Intake Total 100 340 Output Total 800 Balance -700 340 Weight 45.813 kg Intake: Intake, IV Amount 100 Left Wrist 100 Oral 0 340 Output: Urine 800 Condom 800 Other: # Bowel Movements 1 - Physical Exam Head: Positive for: Atraumatic, Normocephalic Pupils: Positive for: PERRL. Negative for: Non-Reactive, Pinpoint Extroacular Muscles: Positive for: EOMI (not following commands for EOMI testing , but follows staff with eyes through room) Conjunctiva: Positive for: Normal. Negative for: Injected, Icteric Mouth: Positive for: Moist Mucous Membranes. Negative for: Normal Teeth (poor dentition, missing recently dislodged right central incisor) Nose (External): Positive for: Atraumatic. Negative for: Abrasion, Contusion, Laceration Nose (Internal): Positive for: No Active Bleeding. Negative for: Epistaxis Neck: Positive for: Normal Range of Motion, Trachea Midline. Negative for: JVD Respiratory/Chest: Positive for: Rhonchi (mild-moderate ronchourous sounds in all auscultated nolan), Other (limited exam; pt not following commands for deep breathing to auscultate lungs, intermittently talking despite instructions not to while examiner listening). Negative for: Respiratory Distress, Wheezes, Rales Cardiovascular: Positive for: Regular Rate and Rhythm, Normal S1, S2, Peripheal Pulses Present. Negative for: Irregular Rhythm, Tachycardic, Bradycardic Abdomen: Positive for: Normal Bowel Sounds. Negative for: Tenderness (abdomen is soft), Distention Upper Extremity: Positive for: Normal Inspection, NORMAL PULSES, Other (wearing bilateral upper extremity mitts). Negative for: Edema, Swelling, Erythema Lower Extremity: Positive for: Normal Inspection, NORMAL PULSES. Negative for: Edema, Tenderness, Swelling, Erythema, Deformity Neurological: Positive for: GCS=15, Motor Func Grossly Intact Skin: Positive for: Warm, Dry, Normal Color Psychiatric: Positive for: Alert, Other (More alert and awake, but still poor insight, intermittently anxious/agitated due to "sister" on other side of hallway) - Medications Active Medications: Active Medications Generic Name Dose Route Start Last Admin Trade Name Freq PRN Reason Stop Dose Admin Albuterol/Ipratropium 3 ml 06/15/18 00:00 06/25/18 16:16 Duoneb 3 Mg/0.5 Mg (3 Ml) Ud INH 3 ml RQ4 [facility] Administration Diltiazem HCl 60 mg 06/22/18 17:00 06/25/18 10:24 Cardizem PO 60 mg Q6H [facility] Administration Folic Acid 1 mg 06/18/18 10:00 06/25/18 09:06 Folic Acid PO 1 mg DAILY [facility] Administration Guaifenesin 200 mg 06/22/18 15:34 06/24/18 18:07 Robitussin PO 200 mg Q4H PRN Administration Cough and congestion Levetiracetam 250 mg/ Dextrose 102.5 mls @ 420 mls/hr 06/23/18 18:00 05:27 IVPB 420 mls/hr Q12H [facility] Administration Vancomycin/Sodium Chloride 1 gm in 200 mls @ 133 mls/hr 06/23/18 20:00 07:40 Vancomycin 1 Gm/Ns 200 Ml IVPB 06/28/18 20:01 133 mls/hr Q12H [facility] Administration Meropenem 1 gm/ Sodium 100 mls @ 100 mls/hr 06/25/18 10:30 06/25/18 10:24 Chloride IVPB 100 mls/hr Q8H [facility] Administration Protocol Lisinopril 10 mg 06/19/18 15:15 06/25/18 09:05 Zestril PO 10 mg DAILY [facility] Administration Methylprednisolone 20 mg 06/24/18 17:00 06/25/18 09:07 Solu-Medrol IV 20 mg Q8H [facility] Administration Multivitamins/Vitamin C 5 ml 06/18/18 10:00 06/25/18 09:07 Multi-Delyn Liquid PO 5 ml DAILY [facility] Administration Pantoprazole Sodium 40 mg 06/23/18 10:00 06/25/18 09:06 Protonix Ec Tab PO 40 mg Q12 [facility] Administration Saccharomyces Boulardii 250 mg 06/24/18 10:00 06/25/18 09:06 Florastor PO 250 mg BID [facility] Administration Sucralfate 1 gm 06/11/18 18:00 06/25/18 14:25 Carafate Oral Susp PO 1 gm QID [facility] Administration Thiamine HCl 100 mg 06/18/18 10:00 06/25/18 09:05 Vitamin B1 Tab PO 100 mg BID [facility] Administration - Patient Studies Lab Studies: Lab Studies 06/25/18 06/25/18 Range/Units 06:34 06:28 WBC 11.0 H (4.8-10.8) K/uL RBC 3.57 L (4.40-5.90) Mil/uL Hgb 10.9 L (12.0-18.0) g/dL Hct 31.7 L (35.0-51.0) % MCV 88.7 (80.0-94.0) fL MCH 30.7 (27.0-31.0) pg MCHC 34.6 (33.0-37.0) g/dL RDW 20.1 H (11.5-14.5) % Plt Count 260 (130-400) K/uL MPV 7.9 (7.2-11.7) fL Neut % (Auto) 92.0 H (50.0-75.0) % Lymph % (Auto) 3.4 L (20.0-40.0) % Gem % (Auto) 4.5 (0.0-10.0) % Eos % (Auto) 0.0 (0.0-4.0) % Baso % (Auto) 0.1 (0.0-2.0) % Neut # (Auto) 10.1 H (1.8-7.0) K/uL Lymph # (Auto) 0.4 L (1.0-4.3) K/uL Gem # (Auto) 0.5 (0.0-0.8) K/uL Eos # (Auto) 0.0 (0.0-0.7) K/uL Baso # (Auto) 0.0 (0.0-0.2) K/uL Neutrophils % (Manual) 89 H (50-75) % Lymphocytes % (Manual) 4 L (20-40) % Monocytes % (Manual) 7 (0-10) % Platelet Estimate Normal (NORMAL) Polychromasia Slight Poikilocytosis (manual Slight Anisocytosis (manual) Moderate Microcytosis (manual) Slight Macrocytosis (manual) Slight Tear Drop Cells Slight Ovalocytes Slight Tra Cells Slight Schistocytes Slight Sodium 146 (132-148) mmol/L Potassium 3.0 L (3.6-5.2) mmol/L Chloride 110 H (98-107) mmol/L Carbon Dioxide 26 (22-30) mmol/L Anion Gap 12 (10-20) BUN 21 H (9-20) mg/dL Creatinine 0.7 L (0.8-1.5) mg/dL Est GFR ( Amer) > 60 Est GFR (Non-Af Amer) > 60 Random Glucose 127 H (75-110) mg/dL Calcium 8.9 (8.6-10.4) mg/dl Phosphorus 3.1 (2.5-4.5) mg/dL Magnesium 1.6 (1.6-2.3) mg/dL Total Bilirubin 0.3 (0.2-1.3) mg/dL AST 26 (17-59) U/L ALT 44 (21-72) U/L Alkaline Phosphatase 96 (38-126) U/L Total Protein 5.6 L (6.3-8.3) g/dL Albumin 2.8 L (3.5-5.0) g/dL Globulin 2.8 (2.2-3.9) gm/dL Albumin/Globulin Ratio 1.0 (1.0-2.1) Laboratory Results - last 24 hr 06/25/18 06/25/18 06:28 06:34 WBC 11.0 H RBC 3.57 L Hgb 10.9 L Hct 31.7 L MCV 88.7 MCH 30.7 MCHC 34.6 RDW 20.1 H Plt Count 260 MPV 7.9 Neut % (Auto) 92.0 H Lymph % (Auto) 3.4 L Gem % (Auto) 4.5 Eos % (Auto) 0.0 Baso % (Auto) 0.1 Neut # (Auto) 10.1 H Lymph # (Auto) 0.4 L Gem # (Auto) 0.5 Eos # (Auto) 0.0 Baso # (Auto) 0.0 Neutrophils % (Manual) 89 H Lymphocytes % (Manual) 4 L Monocytes % (Manual) 7 Platelet Estimate Normal Polychromasia Slight Poikilocytosis (manual Slight Anisocytosis (manual) Moderate Microcytosis (manual) Slight Macrocytosis (manual) Slight Tear Drop Cells Slight Ovalocytes Slight [place] Cells Slight Schistocytes Slight Sodium 146 Potassium 3.0 L Chloride 110 H Carbon Dioxide 26 Anion Gap 12 BUN 21 H Creatinine 0.7 L Est GFR ( Amer) > 60 Est GFR (Non-Af Amer) > 60 Random Glucose 127 H Calcium 8.9 Phosphorus 3.1 Magnesium 1.6 Total Bilirubin 0.3 AST 26 ALT 44 Alkaline Phosphatase 96 Total Protein 5.6 L Albumin 2.8 L Globulin 2.8 Albumin/Globulin Ratio 1.0 Fingerstick Blood Sugar Results: 158 Review of Systems - Review of Systems Systems not reviewed;Unavailable: Altered Mental Status Critical Care Progress Note - Nutrition Nutrition: Nutrition Category Date Time Status Dysphagia/Modified Consistency Diet [DIET] Diets 06/18/18 Lunch Active Assessment/Plan - Assessment and Plan (Free Text) Assessment: This is a 52 year old male with history of alcohol use disorder, seizure disorder, peptic ulcer disease, partial gastrectomy, COPD and hiatal hernia who came in for PEA cardiac arrest 06/10. Patient had a seizure and was found in PEA by EMS, coded and intubated in the field, 2x PEA arrests after arrival resolved with CPR, started on Levophed after 2nd ROSC inhouse. Patient found to have upper GI bleed, s/p bedside EGD, 1 ulcer clipped by GI. Now extubated, no longer on Precedex and Librium. Continues to be confused and intermittently agitated, appears to have some hallucinations today. Plan: Neuro: -Not on sedation -History of alcohol use disorder and seizure disorder -Continue Folic acid and Thiamine given history of alcohol use -Continue Keppra dosage at 250mg IV Q12 -Keppra level sent, pending results -EEG 06/15 shows an abnormal awake and drowsy EEG which is very slow, indicating encephalopathy or medication effect. Recommend repeat EEG off sedation. -Neuro Dr. Rubi consulted, signed off case 06/16 Cardiovascular: -ECHO 06/11: EF of 45-50%, LV diastolic function abnormal: Transmitral doppler grade I-abnormal relaxation pattern. trace to mild tricuspid regurgitation. -Troponin negative -HR low 100s -Cardizem 60mg Q6 -Lisinopril 10mg daily -Cardiology Dr. Iglesias consulted, recs appreciated; Pulmonary: -On 3L O2 NC, satting well -Continue Duonebs Q4 MAYANK, Robitussin 200mg Q4 PRN, Solumedrol 20mg IV Q8 -CXR 06/23 Small right pleural effusion. Left basilar linear scar/ subsegmental atelectasis. No acute infiltrate. -Chest CTA 06/14 negative for PE. Extensive right lower lobe consolidation vs atelectasis, lesser atelectasis in the right middle lobe/lingula. Multifocal ground-glass opacity. Possible infectious etiology. Fluid/secretion in right lower lobe bronchus and possible right upper lobe bronchus. Consider aspiration as etiology. Mild mediastinal and right hilar lymphadenopathy. -Continue IV Merrem and Vanco GI: -S/p gastric ulcer clipped 06/11 -continue Protonix 40mg IV Q12 and carafate 1mg PO QID -GI recommends IR and surgery for further bleeding since patient is difficult to treat endoscopically. GI signed off Renal -BUN 21 /Cr 0.7 -Maintain euvolemia -Monitor and replete electrolytes as needed, K repleted -Nephrology (Dr. Shafer) following, appreciate all recs; ID -Afebrile, WBCs increased to 11, but more likely 2/2 steroids than infectious process given lack of infectious symptoms -Urine culture 06/13 final no growth (06/11 culture: acintobacter baumannii) -Blood cultures 06/12 final no growth (06/11 1 of 2 blood cultures positive for coag negative staph in aerobic bottle only, possible contamination) -06/16 trach aspiration + yeast -06/22 sputum culture + Klebsiella, sensitive to Zosyn/Merrem -Continue Merrem and Vanco as per ID -Continue Florastor 250mg PO BID Heme: -Hb 10.9/ Hct 31.7 -anticoagulation contraindicated given recent bleeding GI ulcer -no active signs of bleeding appreciated at this time, continue to monitor daily Endo: -maintain euglycemia Integumentary: -stage 2 ulcer on sacrum previously identified -continue medihoney and optoform dressing as per primary team -wound care has been consulted Dental: -Right central incisor found in mouth by nurse previously, no additional teeth found -No dental consult available to see patient while hospitalized Dispo: In ICU, continuing IV abx and IV anti-epileptics, continue to monitor FEN: Pureed diet, Folic acid/thiamine supplementation, electrolytes as needed Access: Peripheral IV Consults: ID, Cardio, GI (signed off), Nephro, Neuro (signed off) Ppx: Protonix for GI, SCDs for DVT (AC contraindicated due to GI bleeding) Code status: Unknown, so Full by default Reviewed and discussed with attending, Dr. Magdaleno <Pili Magdaleno - Last Filed: 06/27/18 12:20> CCU Objective - Vital Signs / Intake & Output Intake and Output (Last 8hrs): Intake & Output 06/26/18 06/27/18 06/27/18 22:59 06:59 14:59 Intake Total 100 400 Output Total 300 Balance 100 100 Intake: Oral 100 400 Output: Urine 300 Condom 300 Other: # Bowel Movements 1 - Medications Active Medications: Active Medications Generic Name Dose Route Start Last Admin Trade Name Freq PRN Reason Stop Dose Admin Albuterol/Ipratropium 3 ml 06/15/18 00:00 06/27/18 07:30 Duoneb 3 Mg/0.5 Mg (3 Ml) Ud INH 3 ml RQ4 [facility] Administration Ciprofloxacin 500 mg 06/27/18 10:00 06/27/18 09:47 Cipro PO 07/02/18 10:01 500 mg BID [facility] Administration Protocol Diltiazem HCl 60 mg 06/22/18 17:00 06/27/18 11:32 Cardizem PO 60 mg Q6H [facility] Administration Folic Acid 1 mg 06/18/18 10:00 06/27/18 09:48 Folic Acid PO 1 mg DAILY [facility] Administration Guaifenesin 200 mg 06/22/18 15:34 06/24/18 18:07 Robitussin PO 200 mg Q4H PRN Administration Cough and congestion Lisinopril 10 mg 06/19/18 15:15 06/27/18 09:48 Zestril PO 10 mg DAILY [facility] Administration Methylprednisolone 20 mg 06/24/18 17:00 09/03/18 09:46 Solu-Medrol IV 20 mg Q8H [facility] Administration Multivitamins/Vitamin C 5 ml 06/18/18 10:00 06/27/18 09:47 Multi-Delyn Liquid PO 5 ml DAILY [facility] Administration Pantoprazole Sodium 40 mg 06/23/18 10:00 06/27/18 09:47 Protonix Ec Tab PO 40 mg Q12 [facility] Administration Saccharomyces Boulardii 250 mg 06/24/18 10:00 06/27/18 09:47 Florastor PO 250 mg BID [facility] Administration Sucralfate 1 gm 06/11/18 18:00 06/27/18 09:46 Carafate Oral Susp PO 1 gm QID [facility] Administration Thiamine HCl 100 mg 06/18/18 10:00 06/27/18 09:48 Vitamin B1 Tab PO 100 mg BID [facility] Administration - Patient Studies Lab Studies: Lab Studies 06/27/18 06/27/18 06/27/18 Range/Units 01:05 01:05 01:05 WBC 12.1 H (4.8-10.8) K/uL RBC 4.04 L (4.40-5.90) Mil/uL Hgb 12.0 (12.0-18.0) g/dL Hct 36.8 (35.0-51.0) % MCV 91.0 (80.0-94.0) fL MCH 29.7 (27.0-31.0) pg MCHC 32.6 L (33.0-37.0) g/dL RDW 20.1 H (11.5-14.5) % Plt Count 221 (130-400) K/uL MPV 7.8 (7.2-11.7) fL Neut % (Auto) 94.3 H (50.0-75.0) % Lymph % (Auto) 2.8 L (20.0-40.0) % Gem % (Auto) 2.8 (0.0-10.0) % Eos % (Auto) 0.0 (0.0-4.0) % Baso % (Auto) 0.1 (0.0-2.0) % Neut # (Auto) 11.4 H (1.8-7.0) K/uL Lymph # (Auto) 0.3 L (1.0-4.3) K/uL Gem # (Auto) 0.3 (0.0-0.8) K/uL Eos # (Auto) 0.0 (0.0-0.7) K/uL Baso # (Auto) 0.0 (0.0-0.2) K/uL Neutrophils % (Manual) 97 H (50-75) % Lymphocytes % (Manual) 2 L (20-40) % Monocytes % (Manual) 1 (0-10) % Platelet Estimate Normal (NORMAL) Anisocytosis (manual) Moderate Macrocytosis (manual) Moderate Sodium 141 (132-148) mmol/L Potassium 4.8 (3.6-5.2) mmol/L Chloride 108 H (98-107) mmol/L Carbon Dioxide 26 (22-30) mmol/L Anion Gap 12 (10-20) BUN 20 (9-20) mg/dL Creatinine 0.7 L (0.8-1.5) mg/dL Est GFR ( Amer) > 60 Est GFR (Non-Af Amer) > 60 Random Glucose 134 H (75-110) mg/dL Calcium 9.0 (8.6-10.4) mg/dl Phosphorus 3.7 (2.5-4.5) mg/dL Magnesium 1.8 (1.6-2.3) mg/dL Total Bilirubin 0.6 (0.2-1.3) mg/dL AST 41 (17-59) U/L ALT 72 (21-72) U/L Alkaline Phosphatase 96 (38-126) U/L Total Protein 5.7 L (6.3-8.3) g/dL Albumin 2.7 L (3.5-5.0) g/dL Globulin 3.0 (2.2-3.9) gm/dL Albumin/Globulin Ratio 0.9 L (1.0-2.1) Random Vancomycin 10.7 ug/mL Levetiracetam mcg/mL 06/23/18 Range/Units 09:06 WBC (4.8-10.8) K/uL RBC (4.40-5.90) Mil/uL Hgb (12.0-18.0) g/dL Hct (35.0-51.0) % MCV (80.0-94.0) fL MCH (27.0-31.0) pg MCHC (33.0-37.0) g/dL RDW (11.5-14.5) % Plt Count (130-400) K/uL MPV (7.2-11.7) fL Neut % (Auto) (50.0-75.0) % Lymph % (Auto) (20.0-40.0) % Gem % (Auto) (0.0-10.0) % Eos % (Auto) (0.0-4.0) % Baso % (Auto) (0.0-2.0) % Neut # (Auto) (1.8-7.0) K/uL Lymph # (Auto) (1.0-4.3) K/uL Gem # (Auto) (0.0-0.8) K/uL Eos # (Auto) (0.0-0.7) K/uL Baso # (Auto) (0.0-0.2) K/uL Neutrophils % (Manual) (50-75) % Lymphocytes % (Manual) (20-40) % Monocytes % (Manual) (0-10) % Platelet Estimate (NORMAL) Anisocytosis (manual) Macrocytosis (manual) Sodium (132-148) mmol/L Potassium (3.6-5.2) mmol/L Chloride (98-107) mmol/L Carbon Dioxide (22-30) mmol/L Anion Gap (10-20) BUN (9-20) mg/dL Creatinine (0.8-1.5) mg/dL Est GFR ( Amer) Est GFR (Non-Af Amer) Random Glucose (75-110) mg/dL Calcium (8.6-10.4) mg/dl Phosphorus (2.5-4.5) mg/dL Magnesium (1.6-2.3) mg/dL Total Bilirubin (0.2-1.3) mg/dL AST (17-59) U/L ALT (21-72) U/L Alkaline Phosphatase (38-126) U/L Total Protein (6.3-8.3) g/dL Albumin (3.5-5.0) g/dL Globulin (2.2-3.9) gm/dL Albumin/Globulin Ratio (1.0-2.1) Random Vancomycin ug/mL Levetiracetam 24.0 mcg/mL Laboratory Results - last 24 hr 06/23/18 06/27/18 06/27/18 09:06 01:05 01:05 WBC 12.1 H RBC 4.04 L Hgb 12.0 Hct 36.8 MCV 91.0 MCH 29.7 MCHC 32.6 L RDW 20.1 H Plt Count 221 MPV 7.8 Neut % (Auto) 94.3 H Lymph % (Auto) 2.8 L Gem % (Auto) 2.8 Eos % (Auto) 0.0 Baso % (Auto) 0.1 Neut # (Auto) 11.4 H Lymph # (Auto) 0.3 L Gem # (Auto) 0.3 Eos # (Auto) 0.0 Baso # (Auto) 0.0 Neutrophils % (Manual) 97 H Lymphocytes % (Manual) 2 L Monocytes % (Manual) 1 Platelet Estimate Normal Anisocytosis (manual) Moderate Macrocytosis (manual) Moderate Sodium 141 Potassium 4.8 Chloride 108 H Carbon Dioxide 26 Anion Gap 12 BUN 20 Creatinine 0.7 L Est GFR ( Amer) > 60 Est GFR (Non-Af Amer) > 60 Random Glucose 134 H Calcium 9.0 Phosphorus 3.7 Magnesium 1.8 Total Bilirubin 0.6 AST 41 ALT 72 Alkaline Phosphatase 96 Total Protein 5.7 L Albumin 2.7 L Globulin 3.0 Albumin/Globulin Ratio 0.9 L Random Vancomycin Levetiracetam 24.0 06/27/18 01:05 WBC RBC Hgb Hct MCV MCH MCHC RDW Plt Count MPV Neut % (Auto) Lymph % (Auto) Gem % (Auto) Eos % (Auto) Baso % (Auto) Neut # (Auto) Lymph # (Auto) Gem # (Auto) Eos # (Auto) Baso # (Auto) Neutrophils % (Manual) Lymphocytes % (Manual) Monocytes % (Manual) Platelet Estimate Anisocytosis (manual) Macrocytosis (manual) Sodium Potassium Chloride Carbon Dioxide Anion Gap BUN Creatinine Est GFR ( Amer) Est GFR (Non-Af Amer) Random Glucose Calcium Phosphorus Magnesium Total Bilirubin AST ALT Alkaline Phosphatase Total Protein Albumin Globulin Albumin/Globulin Ratio Random Vancomycin 10.7 Levetiracetam Critical Care Progress Note - Nutrition Nutrition: Nutrition Category Date Time Status Dysphagia/Modified Consistency Diet [DIET] Diets 06/18/18 Lunch Active Attending/Attestation - Attestation I have personally seen and examined this patient.: Yes I have fully participated in the care of the patient.: Yes I have reviewed all pertinent clinical information: Yes
[2018-06-25] MEDS: Potassium Chloride 20 mEq/15 ml LIQ UD PO SCH ×2 (17:40→20:36)
--- NOTE | 2018-06-25 22:17 | CP.PCM.CON ---
History of Present Illness - History of Present Illness History of Present Illness: dictated Past Patient History - Infectious Disease Hx of Infectious Diseases: None - Past Medical History & Family History Past Medical History?: Yes - Past Social History Smoking Status: Light Smoker < 10 Cigarettes Daily - CARDIAC Hx Hypertension: No - PULMONARY Hx Chronic Obstructive Pulmonary Disease (COPD): Yes - NEUROLOGICAL Hx Seizures: Yes - HEENT Hx HEENT Problems: Yes Other/Comment: hearing loss - RENAL Hx Chronic Kidney Disease: No - ENDOCRINE/METABOLIC Hx Endocrine Disorders: No - HEMATOLOGICAL/ONCOLOGICAL Hx Human Immunodeficiency Virus (HIV): No - INTEGUMENTARY Hx Dermatological Problems: No - MUSCULOSKELETAL/RHEUMATOLOGICAL Hx Back Pain: Yes Hx Falls: Yes Other/Comment: scoliosis - GASTROINTESTINAL HX Swallowing Problems: Yes Hx Ulcer: Yes Other/Comment: removal of portion of intestines - GENITOURINARY/GYNECOLOGICAL Hx Sexually Transmitted Disorders: No - PSYCHIATRIC Hx Substance Use: No - SURGICAL HISTORY Hx Surgeries: Yes Hx Herniorrhaphy: Yes Other/Comment: Endoscopy 08/11/16. - ANESTHESIA Hx Anesthesia: Yes Hx Anesthesia Reactions: No Meds Allergies/Adverse Reactions: Allergies Allergy/AdvReac Type Severity Reaction Status Date / Time No Known Allergies Allergy Verified 06/10/18 23:18 - Medications Medications: Current Medications Albuterol/Ipratropium (Duoneb 3 Mg/0.5 Mg (3 Ml) Ud) 3 ml INH RQ4 [facility] Last Admin: 06/25/18 19:31 Dose: 3 ml Diltiazem HCl (Cardizem) 60 mg PO Q6H [facility] Last Admin: 06/25/18 17:25 Dose: 60 mg Folic Acid (Folic Acid) 1 mg PO DAILY [facility] Last Admin: 06/25/18 09:06 Dose: 1 mg Guaifenesin (Robitussin) 200 mg PO Q4H PRN PRN Reason: Cough and congestion Last Admin: 06/24/18 18:07 Dose: 200 mg Levetiracetam 250 mg/ Dextrose 102.5 mls @ 420 mls/hr IVPB Q12H [facility] Last Admin: 06/25/18 18:05 Dose: 420 mls/hr Vancomycin/Sodium Chloride (Vancomycin 1 Gm/Ns 200 Ml) 1 gm in 200 mls @ 133 mls/hr IVPB Q12H [facility] Stop: 06/28/18 20:01 Last Admin: 06/25/18 20:37 Dose: 133 mls/hr Meropenem 1 gm/ Sodium (Chloride) 100 mls @ 100 mls/hr IVPB Q8H [facility] PRN Reason: Protocol Last Admin: 06/25/18 18:25 Dose: 100 mls/hr Lisinopril (Zestril) 10 mg PO DAILY [facility] Last Admin: 06/25/18 09:05 Dose: 10 mg Methylprednisolone (Solu-Medrol) 20 mg IV Q8H [facility] Last Admin: 06/25/18 18:10 Dose: 20 mg Multivitamins/Vitamin C (Multi-Delyn Liquid) 5 ml PO DAILY [facility] Last Admin: 06/25/18 09:07 Dose: 5 ml Pantoprazole Sodium (Protonix Ec Tab) 40 mg PO Q12 [facility] Last Admin: 06/25/18 21:28 Dose: 40 mg Saccharomyces Boulardii (Florastor) 250 mg PO BID [facility] Last Admin: 06/25/18 18:10 Dose: 250 mg Sucralfate (Carafate Oral Susp) 1 gm PO QID [facility] Last Admin: 06/25/18 21:29 Dose: 1 gm Thiamine HCl (Vitamin B1 Tab) 100 mg PO BID [facility] Last Admin: 06/25/18 18:10 Dose: 100 mg Results - Vital Signs Recent Vital Signs: Last Vital Signs Temp 98.6 F 06/25/18 20:00 Pulse 93 H 06/25/18 21:01 Resp 18 06/25/18 21:01 BP 148/78 06/25/18 21:01 Pulse Ox 100 06/25/18 21:01 - Labs Result Diagrams: 06/25/18 06:34 06/25/18 06:28 Labs: Laboratory Results - last 24 hr 06/25/18 06/25/18 06:28 06:34 WBC 11.0 H RBC 3.57 L Hgb 10.9 L Hct 31.7 L MCV 88.7 MCH 30.7 MCHC 34.6 RDW 20.1 H Plt Count 260 MPV 7.9 Neut % (Auto) 92.0 H Lymph % (Auto) 3.4 L [place] % (Auto) 4.5 Eos % (Auto) 0.0 Baso % (Auto) 0.1 Neut # (Auto) 10.1 H Lymph # (Auto) 0.4 L [place] # (Auto) 0.5 Eos # (Auto) 0.0 Baso # (Auto) 0.0 Neutrophils % (Manual) 89 H Lymphocytes % (Manual) 4 L Monocytes % (Manual) 7 Platelet Estimate Normal Polychromasia Slight Poikilocytosis (manual Slight Anisocytosis (manual) Moderate Microcytosis (manual) Slight Macrocytosis (manual) Slight Tear Drop Cells Slight Ovalocytes Slight Tra Cells Slight Schistocytes Slight Sodium 146 Potassium 3.0 L Chloride 110 H Carbon Dioxide 26 Anion Gap 12 BUN 21 H Creatinine 0.7 L Est GFR ( Amer) > 60 Est GFR (Non-Af Amer) > 60 Random Glucose 127 H Calcium 8.9 Phosphorus 3.1 Magnesium 1.6 Total Bilirubin 0.3 AST 26 ALT 44 Alkaline Phosphatase 96 Total Protein 5.6 L Albumin 2.8 L Globulin 2.8 Albumin/Globulin Ratio 1.0
[2018-06-26] MEDS: Albuterol-Ipratrop 3 mg / 0.5 (3 ml) UD INH SCH ×5 (00:34→19:22)
[2018-06-26] MEDS: MethylPREDNISolone 40 mg Vial IV SCH ×3 (01:02→17:14)
[2018-06-26] MEDS: Meropenem 1 GM in Sodium Chloride 0.9% 100 ML IVPB SCH ×3 (03:04→18:33)
--- NOTE | 2018-06-26 03:08 | CON ---
Copied To: Geno Sutton MD Attending MD: Geno Sutton MD DATE: 06/25/2018 INFECTIOUS DISEASE CONSULTATION REQUESTED BY: Dr. Jimenez and Moraima Toure DO HISTORY OF PRESENT ILLNESS: This patient is a 52-year-old male who has a history of seizure, COPD, hiatal hernia, alcohol abuse, and he was found to have cardiac arrest and respiratory failure at home and was found to have low blood pressure. He was found to have seizures. Then, ACLS was called and he was brought to the hospital. This was on 06/11/2018. Right now, he is in ICU. PAST MEDICAL HISTORY: Significant for seizures, COPD, hiatal hernia, alcohol abuse. PAST SURGICAL HISTORY: Significant for excision of small intestine. SOCIAL HISTORY: Significant for two beers daily for 30 years, 10 cigarettes a day for 30 years, and for recreational drug abuse. ALLERGIES: HE IS NOT ALLERGIC TO ANY MEDICINE. REVIEW OF SYSTEMS: Past medical history is noted from the chart. When he suffered cardiac arrest, he was given CPR, and he developed flail chest. Since then, he is being monitored in critical care. He is extubated now. Past medical history is noted. He has no history of HIV disease. No endocrine problems. He does have back issues with scoliosis. History of falls. GI matos, he has been following problems. He has a gastric ulcer. He also had intestinal surgery in the past. No STDs. No psych problems or substance abuse. He has had surgeries. He also had endoscopy in the past. He is not allergic to any medicine. MEDICATIONS: His medications at the present time are: He is on nebulizer treatment. He is on Cardizem, folic acid, guaifenesin. He is on levetiracetam(Keppra) and lisinopril. I had placed him on meropenem on 06/25/2018, today because his sputum culture came out pretty abnormal. Methylprednisolone, vitamin C, Protonix, Florastor, Carafate, thymine. He has been on vancomycin every 12 hours. PHYSICAL EXAMINATION: VITAL SIGNS: I find his temperature is 98.6. He was still now on Zosyn. Heart rate is 103, blood pressure 139/75, respirations are 23. GENERAL: He is not making sense, and he is pretty confused. I do not know what he is talking. I am half and the nurse is half. It cannot make any sense out of it. He is sometimes getting agitated also according to the nurse here. Otherwise, he is a thin-built male. HEENT: Head is atraumatic, normocephalic. Pupils are reacting to light. NECK: Supple. Triple-lumen had been removed from the left side. He has a dressing there. LUNGS: Clear at this time. HEART: S1, S2 are regular. No murmurs appreciated. ABDOMEN: Soft, nontender. No guarding. No rigidity. EXTREMITIES: Have no edema, clubbing, or cyanosis. LABORATORY DATA: Labs are noted. Labs show white count is 11 today, hemoglobin 10.9, hematocrit 31.7, platelet count is 260. Chemistry shows his sodium is 146; potassium is 3, it is low; creatinine 0.7. LFTs are unremarkable even though he is an alcoholic. His stool occult blood was positive on 06/16/2018. ASSESSMENT AND PLAN: Micro matos, the culture came out sputum on 06/22/2018 which showed Klebsiella which is more sensitive to meropenem than Zosyn, and so it was changed to that. He had other culture positive which was yeast. Sputum on 06/16/2018 was yeast. On 06/13/2018, urine culture negative. Blood cultures x2 were negative on 06/12/2018. On 06/11/2018, he had Acinetobacter in the urine, but that became negative. His last chest x-ray on 06/23/2018 was done which shows small right pleural effusion, left basal linear scar, subsegmental atelectasis, no acute infiltrate. So, the x-ray is better. They also did an ultrasound. Ultrasound was done which showed liver is 17.6 cm, increased echogenicity of parenchymal cortex suggestive of fatty infiltration versus hepatic parenchymal disease. He also has cholelithiasis but no La sign. Has dilated common bile duct of 8 mm. Limited visualization of pancreas. Increased echogenicity of bilateral renal parenchyma and right renal perinephric fluid 1.7 cm lower pole left renal cyst. He did come in with respiratory arrest and failure and seizure disorder, but at this time his x-ray seems to have improved but sputum has Klebsiella. This Klebsiella seems to be very sensitive to Cipro. After one or two days if he looks stable, I think we can always switch him to Cipro orally if tolerated and just complete seven days of the antibiotics that would be sufficient. Geno Sutton MD
[2018-06-26 06:45] LABS: BASO % 0.2 % (0.0-2.0); EOS % 0.1 % (0.0-4.0); HEMOGLOBIN 11.3 g/dL (12.0-18.0); LYMPH # 0.2 K/uL (1.0-4.3); LYMPH % 2.2 % (20.0-40.0); MEAN CELL VOLUME 89.8 fL (80.0-94.0); MEAN CORPUSCULAR HEMOGLOBIN 30.4 pg (27.0-31.0); MEAN CORPUSCULAR HGB CONC 33.8 g/dL (33.0-37.0); MEAN PLATELET VOLUME 7.8 fL (7.2-11.7); MONO # 0.3 K/uL (0.0-0.8); MONO % 2.3 % (0.0-10.0); NEUT # 10.8 K/uL (1.8-7.0); NEUT % 95.2 % (50.0-75.0); NRBC % 0.1 % (0.0-2.0); PLATELET COUNT 245 K/uL (130-400); RBC 3.73 Mil/uL (4.40-5.90); RED CELL DISTRIBUTION WIDTH 20.5 % (11.5-14.5); WHITE BLOOD COUNT 11.3 K/uL (4.8-10.8)
[2018-06-26 06:54] LABS: ALB/GLOB RATIO 0.9 (1.0-2.1); ALBUMIN 2.8 g/dL (3.5-5.0); ALT/SGPT 72 U/L (21-72); AST/SGOT 43 U/L (17-59); BLOOD UREA NITROGEN 17 mg/dL (9-20); CALCIUM 9.2 mg/dl (8.6-10.4); GFR NON-AFRICAN AMERICAN > 60
--- NOTE | 2018-06-26 07:53 | CP.PCM.PN ---
Subjective - Date & Time of Evaluation Date of Evaluation: 06/26/18 Time of Evaluation: 07:50 - Subjective Subjective: Medical Attending Note: Patient seen and examined this morning. Patient continues to remain confused. Patient requests he wants to leave, wants his stuff, reports he wants his cane. When I ask him where he is, he reports he is at [facility]. I did advise him he is at [facility] I ask how his breathing he opens his mouth really wide. I ask who I am, he reports Im a clinical partner but notes I am beautiful. I spoke with his nurse, Toy is quite deconditioned, unable to sit upright in chair. Objective - Vital Signs/Intake and Output Vital Signs (last 24 hours): Temp Pulse Resp BP Pulse Ox 98 F 92 H 18 145/79 100 06/26/18 04:00 06/26/18 06:01 06/26/18 06:01 06/26/18 06:01 06/26/18 06:01 Intake and Output: 06/26/18 06/26/18 06:59 18:59 Intake Total 890 Output Total 1200 Balance -310 - Medications Medications: Current Medications Albuterol/Ipratropium (Duoneb 3 Mg/0.5 Mg (3 Ml) Ud) 3 ml INH RQ4 [facility]ANK Last Admin: 06/26/18 07:45 Dose: Not Given Diltiazem HCl (Cardizem) 60 mg PO Q6H [facility]ANK Last Admin: 06/26/18 05:12 Dose: 60 mg Folic Acid (Folic Acid) 1 mg PO DAILY [facility] Last Admin: 06/25/18 09:06 Dose: 1 mg Guaifenesin (Robitussin) 200 mg PO Q4H PRN PRN Reason: Cough and congestion Last Admin: 06/24/18 18:07 Dose: 200 mg Levetiracetam 250 mg/ Dextrose 102.5 mls @ 420 mls/hr IVPB Q12H [facility] Last Admin: 06/26/18 05:13 Dose: 420 mls/hr Vancomycin/Sodium Chloride (Vancomycin 1 Gm/Ns 200 Ml) 1 gm in 200 mls @ 133 mls/hr IVPB Q12H [facility] Stop: 06/28/18 20:01 Last Admin: 06/25/18 20:37 Dose: 133 mls/hr Meropenem 1 gm/ Sodium (Chloride) 100 mls @ 100 mls/hr IVPB Q8H [facility] PRN Reason: Protocol Last Admin: 06/26/18 03:04 Dose: 100 mls/hr Lisinopril (Zestril) 10 mg PO DAILY [facility] Last Admin: 06/25/18 09:05 Dose: 10 mg Methylprednisolone (Solu-Medrol) 20 mg IV Q8H [facility] Last Admin: 06/26/18 01:02 Dose: 20 mg Multivitamins/Vitamin C (Multi-Delyn Liquid) 5 ml PO DAILY [facility] Last Admin: 06/25/18 09:07 Dose: 5 ml Pantoprazole Sodium (Protonix Ec Tab) 40 mg PO Q12 [facility] Last Admin: 06/25/18 21:28 Dose: 40 mg Saccharomyces Boulardii (Florastor) 250 mg PO BID [facility] Last Admin: 06/25/18 18:10 Dose: 250 mg Sucralfate (Carafate Oral Susp) 1 gm PO QID [facility] Last Admin: 06/25/18 21:29 Dose: 1 gm Thiamine HCl (Vitamin B1 Tab) 100 mg PO BID [facility] Last Admin: 06/25/18 18:10 Dose: 100 mg - Labs Labs: 06/26/18 06:32 06/26/18 06:32 PT 13.6 SECONDS (9.7-12.2) H 06/20/18 10:09 INR 1.2 06/20/18 10:09 APTT 40 SECONDS (21-34) H 06/10/18 23:37 - Constitutional Appears: Unkempt, Agitated, Cachectic, Chronically Ill - Head Exam Head Exam: NORMAL INSPECTION - Eye Exam Eye Exam: EOMI - ENT Exam ENT Exam: Mucous Membranes Moist - Respiratory Exam Respiratory Exam: Decreased Breath Sounds, NORMAL BREATHING PATTERN. absent: Respiratory Distress, Stridor - Cardiovascular Exam Cardiovascular Exam: REGULAR RHYTHM, +S1, +S2 - GI/Abdominal Exam GI & Abdominal Exam: Soft, Normal Bowel Sounds. absent: Distended, Firm, Guarding, Rigid, Tenderness, Rebound - Extremities Exam Extremities Exam: absent: Pedal Edema, Tenderness Additional comments: prevalon boots - Neurological Exam Neurological Exam: Awake. absent: Alert, Oriented x3 - Psychiatric Exam Psychiatric exam: Agitated - Skin Skin Exam: Normal Color, Warm Assessment and Plan (1) Cardiac arrest Status: Acute (2) Respiratory failure Status: Acute (3) Seizure Status: Acute (4) GI bleeding Status: Acute (5) Hyponatremia Status: Acute (6) Aspiration pneumonia Status: Acute (7) Encephalopathy Status: Acute (8) Prophylactic measure Status: Acute Attending/Attestation - Attestation I have personally seen and examined this patient.: Yes I have fully participated in the care of the patient.: Yes I have reviewed all pertinent clinical information, including history, physical exam and plan: Yes Notes (Text): Patient seen, examined, and case discussed with ICU. ID on case; has switched to Meropenem for aspiration pneumonia, can be switched for 7 day course of Cipro and is on IV vancomycin If patient continues with aggression, confusion, and now requesting to leave against medical advice, will get psych consult to make the determination. Assessment/Plan 1). Cardiopulmonary Arrest Assessment/Plan * Cardiology Dr. Iglesias retail loss prevention officer-->help appreciated * PEA s/p ROSC NSR * Echocardiogram (06/12/18): ejection fraction: 45-50%, left ventricular diastolic function is abnormal. left atrium size looks normal right atrium size looks normal. trace to mild tricupsid regurgitaton * Solumedrol 40 mg IV Q8H (since 06/17/18) * EEG (06/15) shows an abnormal awake and drowsy EEG which is very slow, indicating encephalopathy or medication effect. Recommend repeat EEG off sedation 2). Hyponatremia Assessment/Plan * Nephrology Dr. Shafer on board-->help appreciated * Secondary to Alcohol Abuse * Received 3 NS boluses in ER * Seizure precautions * Normalized 3). Hypokalemia/Hypomagnesemia/Hypophosphotemia Assessment/Plan * Replete as needed 4). Metabolic Acidosis Assessment/Plan * Likely secondary to the Cadriopulmonary Arrest, GI bleed, Respiratory Distress * Resolved 5). Seizure Assessment/Plan * Neurology Dr. Richie Rubi on board-->help appreciated * Risk factor: heavy alcohol use and hyponatremia, hypomagnesium * Head CT (06/11/18): no acute intracranial abnormality. Chronic microvascular ischemic changes. sinus mucosal disease as above * He has a history of alcohol withdrawal seizures * Patient is off Precedex * Keppra 250 mg IV Q12H * Recommend EEG if mental status does not improve after extubation and once off precedex 6). Anemia likely secondary to GI Bleed History of Peptic Ulcer Disease Bleeding Ulcer Assessment/Plan * GI Dr. Ho on consult help appreciated * CT Chest/abdomen/pelvis (06/12/18): distended bowel suggesting an ileus. Markedly limited evaluation of the bowel without oral or intravenous contrast. Suggestion of prior Bilroth 2 procedure. Fluid filled dilatation of small bowel andproximal colon. Fluid filled dilatation of the small bowel and prozimal colon. Fluid in the descending colon without a sharp transition sozne. Portions of transverse colon were not well visualized. * Monitor H/H and transfuse as needed * Carafate 1g qid * S/P EGD POD: 2 anastomotic ulcers with visible vessel s/p APC and 5 clips, one ulcer with visible vessel and adherent clot was not intervened on due to adverse location--->If pt develops further bleeding will need IR and Surgery on board, difficult to treat endoscopically * Monitor H/H: received 2 units on 06/16/18 and is currently stable * protonix 40mg PO BID * No NSAIDS and strong history of alcohol abuse 7). Hypocalcemia Assessment/Plan * Monitor 8). Acute Respiratory Failure Aspiration Pneumonia Assessment/Plan * CT Chest 06/11/18: thinned walled cavity in the right upper lobe which may be the sequelae of prior infection 5mm subpleural nodule within the anterior right middle lobe. Focal consolidation within the inferior right middle lobe. Focal consolidation within the right lower lobe. Patchy ground glass opacities in both lungs which and nonspecific but may secondary to alectasis versus contusion versus pneumonitis. * Chest xray (06/23/18): small right pleural effusion. left basilar linear scar/ subsegmental atelectasis. no acute infiltrate. * Extubated 06/12/18 and Re-intubated on 06/14/18 and extubated 06/17/18 * Solumedrol 20 mg IV Q8H * Patient has productive cough. * Robotussin 200mg POq4H PRN cough and congestion * Chest physiotherapy * Meropenem 1gram IV Q8H (active since 06/24/18) * Vancomycin 1 gram IV Q12H (active since 06/23/18) 9) Open Wounds on Sacrum Stage II Assessment/Plan * Turn [id number] * MediHoney with Optifoam Dressing * Latest wound care note: (06/22/18) WOUND CARE NOTE-Patient re-assessed; found to have improving MASD, Moisture associated skin damage to sacral/coccyx regions. Skin continues with blanchable erythema; erosions resolving. recommending to continue aloevesta protective ointment to entire sacral/coccyx regions 3x/day and prn for incontinent episodes. Must reposition this patient frequently to optimize offloading. Will continue to follow. 10) Bilateral Anterior Rib and Sternal Fractures Assessment/Plan * Noted on CT Chest * Secondary to CPR given cardiopulmonary arrest 11) Systolic and Diastolic Heart Failure * Echocardiogram 06/12/18 shows EF at 45-50%, left ventricular diastolic function abnormal with Grade I abnormal relaxation pattern, trace to mild ticuspid regurgitation * Lisinopril 10 mg PO 1x/day * Cardizem 60mg PO Q6H * Aspirin contraindication secondary to bleeding ulcer 12) Urinary tract infection-->resolved * Zosyn 3.375g IV Q8H (active since 06/11/18) * Repeat urine culture 06/13/18 showed NO growth 13) Bacteremia-->resolved * Repeat blood culture 06/12/18 is negative at 5 days 14) Alcoholism Alcoholic Liver Disease * Hx heavy use * Off Precedex * off Librium 25 mg PO Q8H 06/22/18 * MVI PO 1x/day * Thiamine 100mg PO BID * Folic acid 1mg PO daily * MVI 5 ml PO daily * Abdominal US report available in the EMR; limited but liver changes 15) Prophylactic measure * Protonix 40 mg PO Q12H * Lactobacillus 1 cap PO 2x/day * Chemical anticoagulation held secondary to GI bleed * Turn [id number] * Aspiration precautions * Seizure precautions * Wound care on board * PT/OT gabal
[2018-06-26] MEDS ORDERED: Magnesium Sulfate 1 gm in D5W 1 GM/100 ML BAG IVPB ONE (07:56)
[2018-06-26 08:32] LABS: ANISOCYTOSIS MODERATE; BANDS 1 % (0-2); LYMPHOCYTE 3 % (20-40); MICROCYTOSIS SLIGHT; MONOCYTE 3 % (0-10); NEUTROPHIL 93 % (50-75); PLATELET ESTIMATE NORMAL (NORMAL); POIKILOCYTOSIS SLIGHT; TOTAL CELLS COUNTED 100
[2018-06-26 08:33] LABS: OVALOCYTES SLIGHT; POLYCHROMIC SLIGHT; SCHISTOCYTES SLIGHT; TEARDROP CELLS SLIGHT
[2018-06-26] MEDS: Saccharomyces Boulardi 250 mg Cap PO SCH ×2 (09:12→17:14)
[2018-06-26] MEDS: Pantoprazole 40 mg EC Tab PO SCH ×2 (09:14→21:45)
[2018-06-26] MEDS: Sucralfate 1 gm/10 ml Oral Susp UD PO SCH ×4 (09:14→21:45)
[2018-06-26] MEDS: Multiple Vitamins Oral Solution PO SCH (09:14)
--- NOTE | 2018-06-26 13:28 | PCM.PSYCH ---
Initial Psychiatric Evaluation - Initial Psychiatric Evaluation Chief Complaint (in patient's own words): "My cousin is here, we'll go" History of Present Illness and Precipitating Events: The patient is seen, chart reviewed and case discussed. This is a 52-year-old male, protein for cardiac arrest and he was in alcohol withdrawal but currently he is delirious and has no more withdrawal symptoms. Consultation was requested for his capacity evaluation. The patient is still disoriented, he told us that the nurse was his cousin and that they would leave together. And he said other illogical things and was unable to provide meaningful information or answer questions properly. As per staff he is fluctuating in his sensorium, sleep and orientation. He is frequently agitated and sometimes uncooperative. Past history is positive for 30 years of alcoholism. It's unclear if she received any treatment in the past Medical history is positive for withdrawal seizures, COPD, hiatal hernia and now cardiac arrest for which he was resuscitated Family psych history unknown Current Medications: Active Medications Generic Name Dose Route Start Last Admin Trade Name Murphyq PRN Reason Stop Dose Admin Albuterol/Ipratropium 3 ml 06/15/18 00:00 06/26/18 07:45 Duoneb 3 Mg/0.5 Mg (3 Ml) Ud INH Not Given RQ4 MAYANK Diltiazem HCl 60 mg 06/22/18 17:00 06/26/18 05:12 Cardizem PO 60 mg Q6H MAYANK Administration Folic Acid 1 mg 06/18/18 10:00 06/26/18 09:14 Folic Acid PO 1 mg DAILY [facility] Administration Guaifenesin 200 mg 06/22/18 15:34 06/24/18 18:07 Robitussin PO 200 mg Q4H PRN Administration Cough and congestion Levetiracetam 250 mg/ Dextrose 102.5 mls @ 420 mls/hr 06/23/18 18:00 05:13 IVPB 420 mls/hr Q12H [facility] Administration Vancomycin/Sodium Chloride 1 gm in 200 mls @ 133 mls/hr 06/23/18 20:00 20:37 Vancomycin 1 Gm/Ns 200 Ml IVPB 06/28/18 20:01 133 mls/hr Q12H [facility] Administration Meropenem 1 gm/ Sodium 100 mls @ 100 mls/hr 06/25/18 10:30 06/26/18 03:04 Chloride IVPB 100 mls/hr Q8H [facility] Administration Protocol Lisinopril 10 mg 06/19/18 15:15 06/26/18 09:12 Zestril PO 10 mg DAILY [facility] Administration Methylprednisolone 20 mg 06/24/18 17:00 06/26/18 08:15 Solu-Medrol IV 20 mg Q8H [facility] Administration Multivitamins/Vitamin C 5 ml 06/18/18 10:00 06/26/18 09:14 Multi-Delyn Liquid PO 5 ml DAILY [facility] Administration Pantoprazole Sodium 40 mg 06/23/18 10:00 06/26/18 09:14 Protonix Ec Tab PO 40 mg Q12 [facility] Administration Saccharomyces Boulardii 250 mg 06/24/18 10:00 06/26/18 09:12 Florastor PO 250 mg BID [facility] Administration Sucralfate 1 gm 06/11/18 18:00 06/26/18 09:14 Carafate Oral Susp PO 1 gm QID [facility] Administration Thiamine HCl 100 mg 06/18/18 10:00 06/26/18 09:14 Vitamin B1 Tab PO 100 mg BID [facility] Administration Past Psychiatric History - Past Psychiatric History Previous Treatment History: None Pertinent Medical Hx (Current Medical&Sleep Prob, Allergies): Allergies Allergy/AdvReac Type Severity Reaction Status Date / Time No Known Allergies Allergy Verified 06/10/18 23:18 No Known Home Med 08/11/16 Review of Systems - Neurological Neurological: Confusion - Psychiatric Psychiatric: Abnormal Sleep Pattern, Confusion, Irritability, Mood Swings. absent: Homicidal Ideation, Suicidal Ideation Mental Status Examination - Personal Presentation Personal Presentation: Looks older than stated age - Affect Affect: Constricted - Motor Activity Motor Activity: Psychomotor Agitation - Reliability in Providing Information Reliability in Providing Information: Poor, due to alteration in thoughts - Speech Speech: Disorganized - Mood Mood: Anxious - Formal Thought Process Formal Thought Process: Loosening of associations - Cognitive Functions Orientation: Place Sensorium: Drowsy Attention/Concentration: Easily distracted Abstract Thinking: [place] Estimate of Intelligence: Average Judgement: Imparied, as evidence by: Poor judgement Memory: Recent impaired, as evidence by: Inability to recall events of the day, Remote impaired as evidenced by: Inability to recall sig life events - Risk Risk: Diminished functioning - Strength & Assets Inventory Strength & Assets Inventory: Family support - Limitations Limitations: Other DSM 5 DX - DSM 5 DSM 5 Diagnosis: Delirium Alcohol use disorder - severe - Recommended/Plan of Treatment Treatment Recommendations and Plan of Treatment: Pt does NOT have the capacity to make medical decisions or leave Support and psychoed Continue treating underlying conditions family involvement may help Frequent orientations Haldol 2 mg or Ativan 1 or 2 mg as needed for agitation 32 min
--- NOTE | 2018-06-26 13:42 | CP.CCUPN ---
<Alessandro Petty - Last Filed: 06/26/18 19:29> CCU Subjective - Physician Review Subjective (Free Text): 06/26/18 19:29 Patient was seen and examined at beside in the ICU. No acute events reported overnight. Remains off sedation, remains confused and oriented only to self, but overall mentation appears improved. Still has mitts to prevent pulling lines. Repeatedly insists on going home, when reminded that he is severely conditioned, he says he can walk with a cane. Transferred to telemetry. CCU Objective - Vital Signs / Intake & Output Vital Signs (Last 4 hours): Vital Signs Temp Pulse Resp BP Pulse Ox 06/26/18 12:01 98 H 19 139/77 100 06/26/18 12:00 98.6 F 98 H 18 100 06/26/18 11:01 99 H 16 131/67 06/26/18 11:00 94 H 22 100 06/26/18 10:01 82 18 112/59 L 06/26/18 10:00 83 18 Intake and Output (Last 8hrs): Intake & Output 06/25/18 06/26/18 06/26/18 22:59 06:59 14:59 Intake Total 1220 350 Output Total 900 1200 Balance 320 -850 Weight 45.586 kg Intake: Intake, IV Amount 500 200 Left Wrist 500 200 Oral 720 150 Output: Urine 900 1200 Condom 900 1200 Other: # Bowel Movements 0 - Physical Exam Head: Positive for: Atraumatic, Normocephalic Pupils: Positive for: PERRL. Negative for: Non-Reactive, Pinpoint Extroacular Muscles: Positive for: EOMI (not following commands for EOMI testing , but follows staff with eyes through room) Conjunctiva: Positive for: Normal. Negative for: Injected, Icteric Mouth: Positive for: Moist Mucous Membranes. Negative for: Normal Teeth (poor dentition, missing recently dislodged right central incisor) Nose (External): Positive for: Atraumatic. Negative for: Abrasion, Contusion, Laceration Nose (Internal): Positive for: No Active Bleeding. Negative for: Epistaxis Neck: Positive for: Normal Range of Motion, Trachea Midline. Negative for: JVD Respiratory/Chest: Positive for: Rhonchi (mild-moderate ronchourous sounds in all auscultated nolan), Other (limited exam; pt not following commands for deep breathing to auscultate lungs, intermittently talking despite instructions not to while examiner listening). Negative for: Respiratory Distress, Wheezes, Rales Cardiovascular: Positive for: Regular Rate and Rhythm, Normal S1, S2, Peripheal Pulses Present. Negative for: Irregular Rhythm, Tachycardic, Bradycardic Abdomen: Positive for: Normal Bowel Sounds. Negative for: Tenderness (abdomen is soft), Distention Upper Extremity: Positive for: Normal Inspection, NORMAL PULSES, Other (wearing bilateral upper extremity mitts). Negative for: Edema, Swelling, Erythema Lower Extremity: Positive for: Normal Inspection, NORMAL PULSES. Negative for: Edema, Tenderness, Swelling, Erythema, Deformity Neurological: Positive for: GCS=15, Motor Func Grossly Intact Skin: Positive for: Warm, Dry, Normal Color Psychiatric: Positive for: Alert, Other (More alert and awake, but still poor insight, intermittently anxious/agitated due to wanting to go home) - Medications Active Medications: Active Medications Generic Name Dose Route Start Last Admin Trade Name Freq PRN Reason Stop Dose Admin Albuterol/Ipratropium 3 ml 06/15/18 00:00 06/26/18 07:45 Duoneb 3 Mg/0.5 Mg (3 Ml) Ud INH Not Given RQ4 [facility]ANK Diltiazem HCl 60 mg 06/22/18 17:00 06/26/18 05:12 Cardizem PO 60 mg Q6H [facility] Administration Folic Acid 1 mg 06/18/18 10:00 06/26/18 09:14 Folic Acid PO 1 mg DAILY [facility] Administration Guaifenesin 200 mg 06/22/18 15:34 06/24/18 18:07 Robitussin PO 200 mg Q4H PRN Administration Cough and congestion Levetiracetam 250 mg/ Dextrose 102.5 mls @ 420 mls/hr 06/23/18 18:00 05:13 IVPB 420 mls/hr Q12H [facility] Administration Vancomycin/Sodium Chloride 1 gm in 200 mls @ 133 mls/hr 06/23/18 20:00 20:37 Vancomycin 1 Gm/Ns 200 Ml IVPB 06/28/18 20:01 133 mls/hr Q12H [facility] Administration Meropenem 1 gm/ Sodium 100 mls @ 100 mls/hr 06/25/18 10:30 06/26/18 03:04 Chloride IVPB 100 mls/hr Q8H [facility]ANK Administration Protocol Lisinopril 10 mg 06/19/18 15:15 06/26/18 09:12 Zestril PO 10 mg DAILY [facility] Administration Methylprednisolone 20 mg 06/24/18 17:00 06/26/18 08:15 Solu-Medrol IV 20 mg Q8H [facility]ANK Administration Multivitamins/Vitamin C 5 ml 06/18/18 10:00 06/26/18 09:14 Multi-Delyn Liquid PO 5 ml DAILY [facility] Administration Pantoprazole Sodium 40 mg 06/23/18 10:00 06/26/18 09:14 Protonix Ec Tab PO 40 mg Q12 [facility] Administration Saccharomyces Boulardii 250 mg 06/24/18 10:00 06/26/18 09:12 Florastor PO 250 mg BID [facility] Administration Sucralfate 1 gm 06/11/18 18:00 06/26/18 09:14 Carafate Oral Susp PO 1 gm QID [facility] Administration Thiamine HCl 100 mg 06/18/18 10:00 06/26/18 09:14 Vitamin B1 Tab PO 100 mg BID MAYANK Administration - Patient Studies Lab Studies: Lab Studies 06/26/18 06/26/18 06/26/18 Range/Units 10:43 06:32 06:32 WBC 11.3 H (4.8-10.8) K/uL RBC 3.73 L (4.40-5.90) Mil/uL Hgb 11.3 L (12.0-18.0) g/dL Hct 33.5 L (35.0-51.0) % MCV 89.8 (80.0-94.0) fL MCH 30.4 (27.0-31.0) pg MCHC 33.8 (33.0-37.0) g/dL RDW 20.5 H (11.5-14.5) % Plt Count 245 (130-400) K/uL MPV 7.8 (7.2-11.7) fL Neut % (Auto) 95.2 H (50.0-75.0) % Lymph % (Auto) 2.2 L (20.0-40.0) % Kent % (Auto) 2.3 (0.0-10.0) % Eos % (Auto) 0.1 (0.0-4.0) % Baso % (Auto) 0.2 (0.0-2.0) % Neut # (Auto) 10.8 H (1.8-7.0) K/uL Lymph # (Auto) 0.2 L (1.0-4.3) K/uL Kent # (Auto) 0.3 (0.0-0.8) K/uL Eos # (Auto) 0.0 (0.0-0.7) K/uL Baso # (Auto) 0.0 (0.0-0.2) K/uL Neutrophils % (Manual) 93 H (50-75) % Band Neutrophils % 1 (0-2) % Lymphocytes % (Manual) 3 L (20-40) % Monocytes % (Manual) 3 (0-10) % Platelet Estimate Normal (NORMAL) Polychromasia Slight Poikilocytosis (manual Slight Anisocytosis (manual) Moderate Microcytosis (manual) Slight Macrocytosis (manual) Slight Tear Drop Cells Slight Ovalocytes Slight Schistocytes Slight Sodium 142 (132-148) mmol/L Potassium 4.4 (3.6-5.2) mmol/L Chloride 108 H (98-107) mmol/L Carbon Dioxide 28 (22-30) mmol/L Anion Gap 11 (10-20) BUN 17 (9-20) mg/dL Creatinine 0.7 L (0.8-1.5) mg/dL Est GFR ( Amer) > 60 Est GFR (Non-Af Amer) > 60 Random Glucose 122 H (75-110) mg/dL Calcium 9.2 (8.6-10.4) mg/dl Phosphorus 3.4 (2.5-4.5) mg/dL Magnesium 1.5 L (1.6-2.3) mg/dL Total Bilirubin 0.3 (0.2-1.3) mg/dL AST 43 (17-59) U/L ALT 72 D (21-72) U/L Alkaline Phosphatase 108 (38-126) U/L Total Protein 5.8 L (6.3-8.3) g/dL Albumin 2.8 L (3.5-5.0) g/dL Globulin 3.0 (2.2-3.9) gm/dL Albumin/Globulin Ratio 0.9 L (1.0-2.1) Vancomycin Trough 22.7 H (5.0-10.0) ug/mL Laboratory Results - last 24 hr 06/26/18 06/26/18 06/26/18 06:32 06:32 10:43 WBC 11.3 H RBC 3.73 L Hgb 11.3 L Hct 33.5 L MCV 89.8 MCH 30.4 MCHC 33.8 RDW 20.5 H Plt Count 245 MPV 7.8 Neut % (Auto) 95.2 H Lymph % (Auto) 2.2 L Kent % (Auto) 2.3 Eos % (Auto) 0.1 Baso % (Auto) 0.2 Neut # (Auto) 10.8 H Lymph # (Auto) 0.2 L Kent # (Auto) 0.3 Eos # (Auto) 0.0 Baso # (Auto) 0.0 Neutrophils % (Manual) 93 H Band Neutrophils % 1 Lymphocytes % (Manual) 3 L Monocytes % (Manual) 3 Platelet Estimate Normal Polychromasia Slight Poikilocytosis (manual Slight Anisocytosis (manual) Moderate Microcytosis (manual) Slight Macrocytosis (manual) Slight Tear Drop Cells Slight Ovalocytes Slight Schistocytes Slight Sodium 142 Potassium 4.4 Chloride 108 H Carbon Dioxide 28 Anion Gap 11 BUN 17 Creatinine 0.7 L Est GFR ( Amer) > 60 Est GFR (Non-Af Amer) > 60 Random Glucose 122 H Calcium 9.2 Phosphorus 3.4 Magnesium 1.5 L Total Bilirubin 0.3 AST 43 ALT 72 D Alkaline Phosphatase 108 Total Protein 5.8 L Albumin 2.8 L Globulin 3.0 Albumin/Globulin Ratio 0.9 L Vancomycin Trough 22.7 H Fingerstick Blood Sugar Results: 158 Review of Systems - Review of Systems Systems not reviewed;Unavailable: Altered Mental Status Critical Care Progress Note - Nutrition Nutrition: Nutrition Category Date Time Status Dysphagia/Modified Consistency Diet [DIET] Diets 06/18/18 Lunch Active Assessment/Plan - Assessment and Plan (Free Text) Assessment: This is a 52 year old male with history of alcohol use disorder, seizure disorder, peptic ulcer disease, partial gastrectomy, COPD and hiatal hernia who came in for PEA cardiac arrest 06/10. Patient had a seizure and was found in PEA by EMS, coded and intubated in the field, 2x PEA arrests after arrival resolved with CPR, started on Levophed after 2nd ROSC inhouse. Patient found to have upper GI bleed, s/p bedside EGD, 1 ulcer clipped by GI. Remains extubated, no longer on Precedex and Librium. Improved mentation today, transferred to telemetry. Plan: Neuro: -Not on sedation -History of alcohol use disorder and seizure disorder -Continue Folic acid and Thiamine given history of alcohol use -Continue Keppra dosage at 250mg IV Q12 -Keppra level sent, pending results -EEG 06/15 shows an abnormal awake and drowsy EEG which is very slow, indicating encephalopathy or medication effect. Recommend repeat EEG off sedation. -Neuro Dr. Rubi consulted, signed off case 06/16 Cardiovascular: -ECHO 06/11: EF of 45-50%, LV diastolic function abnormal: Transmitral doppler grade I-abnormal relaxation pattern. trace to mild tricuspid regurgitation. -Troponin negative -HR consistently 100s-110's -continue Cardizem, Lisinopril -Cardiology Dr. Iglesias consulted, recs appreciated; Pulmonary: -On 3L O2 NC, satting well -Continue Duonebs Q4 MAYANK, Robitussin 200mg Q4 PRN, Solumedrol 20mg IV Q8 -CXR 06/23 Small right pleural effusion. Left basilar linear scar/ subsegmental atelectasis. No acute infiltrate. -Chest CTA 06/14 negative for PE. Extensive right lower lobe consolidation vs atelectasis, lesser atelectasis in the right middle lobe/lingula. Multifocal ground-glass opacity. Possible infectious etiology. Fluid/secretion in right lower lobe bronchus and possible right upper lobe bronchus. Consider aspiration as etiology. Mild mediastinal and right hilar lymphadenopathy. -Continue IV Merrem, Vanco discontinued as per ID GI: -S/p gastric ulcer clipped 06/11 -continue Protonix 40mg IV Q12 and carafate 1mg PO QID -GI recommends IR and surgery for further bleeding since patient is difficult to treat endoscopically. GI signed off Renal -BUN 17 /Cr 0.7 -Maintain euvolemia -Monitor and replete electrolytes as needed -Nephrology (Dr. Shafer) following, appreciate all recs; ID -Afebrile, WBCs 11.3, but more likely 2/2 steroids than infectious process given lack of infectious symptoms -Urine culture 06/13 final no growth (06/11 culture: acintobacter baumannii) -Blood cultures 06/12 final no growth (06/11 1 of 2 blood cultures positive for coag negative staph in aerobic bottle only, possible contamination) -06/16 trach aspiration + yeast -06/22 sputum culture + Klebsiella, sensitive to Zosyn/Merrem -Continue Merrem as per ID, Vanco discontinued -Continue Florastor 250mg PO BID Heme: -Hb 11.3/ Hct 33.5 -anticoagulation contraindicated given recent bleeding GI ulcer -no active signs of bleeding appreciated at this time, continue to monitor daily Endo: -maintain euglycemia Integumentary: -stage 2 ulcer on sacrum previously identified -continue medihoney and optoform dressing as per primary team -wound care has been consulted Dental: -Right central incisor found in mouth by nurse previously, no additional teeth found -No dental consult available to see patient while hospitalized Psych: -due to pending downgrade and patient's repeated desire to leave, evaluated by Psych to assess capacity -as per Psych, DOES NOT have capacity, Haldol or Ativan prn for agitation Dispo: Continue IV abx as per ID and anti-epileptics, transferred to telemetry FEN: Pureed diet, Folic acid/thiamine supplementation, electrolytes as needed Access: Peripheral IV Consults: ID, Cardio, GI (signed off), Nephro, Neuro (signed off), Psych Ppx: Protonix for GI, SCDs for DVT (AC contraindicated due to GI bleeding) Code status: Unknown, so Full by default Reviewed and discussed with attending, Dr. Magdaleno <Pili Magdaleno - Last Filed: 06/27/18 12:20> CCU Objective - Vital Signs / Intake & Output Intake and Output (Last 8hrs): Intake & Output 06/26/18 06/27/18 06/27/18 22:59 06:59 14:59 Intake Total 100 400 Output Total 300 Balance 100 100 Intake: Oral 100 400 Output: Urine 300 Condom 300 Other: # Bowel Movements 1 - Medications Active Medications: Active Medications Generic Name Dose Route Start Last Admin Trade Name Freq PRN Reason Stop Dose Admin Albuterol/Ipratropium 3 ml 06/15/18 00:00 06/27/18 07:30 Duoneb 3 Mg/0.5 Mg (3 Ml) Ud INH 3 ml RQ4 [facility]ANK Administration Ciprofloxacin 500 mg 06/27/18 10:00 06/27/18 09:47 Cipro PO 07/02/18 10:01 500 mg BID MAYANK Administration Protocol Diltiazem HCl 60 mg 06/22/18 17:00 06/27/18 11:32 Cardizem PO 60 mg Q6H MAYANK Administration Folic Acid 1 mg 06/18/18 10:00 06/27/18 09:48 Folic Acid PO 1 mg DAILY [facility] Administration Guaifenesin 200 mg 06/22/18 15:34 06/24/18 18:07 Robitussin PO 200 mg Q4H PRN Administration Cough and congestion Lisinopril 10 mg 06/19/18 15:15 06/27/18 09:48 Zestril PO 10 mg DAILY [facility] Administration Methylprednisolone 20 mg 06/24/18 17:00 06/27/18 09:46 Solu-Medrol IV 20 mg Q8H [facility]ANK Administration Multivitamins/Vitamin C 5 ml 06/18/18 10:00 06/27/18 09:47 Multi-Delyn Liquid PO 5 ml DAILY [facility] Administration Pantoprazole Sodium 40 mg 06/23/18 10:00 06/27/18 09:47 Protonix Ec Tab PO 40 mg Q12 [facility]ANK Administration Saccharomyces Boulardii 250 mg 06/24/18 10:00 06/27/18 09:47 Florastor PO 250 mg BID MAYANK Administration Sucralfate 1 gm 06/11/18 18:00 06/27/18 09:46 Carafate Oral Susp PO 1 gm QID [facility] Administration Thiamine HCl 100 mg 06/18/18 10:00 06/27/18 09:48 Vitamin B1 Tab PO 100 mg BID MAYANK Administration - Patient Studies Lab Studies: Lab Studies 06/27/18 06/27/18 06/27/18 Range/Units 01:05 01:05 01:05 WBC 12.1 H (4.8-10.8) K/uL RBC 4.04 L (4.40-5.90) Mil/uL Hgb 12.0 (12.0-18.0) g/dL Hct 36.8 (35.0-51.0) % MCV 91.0 (80.0-94.0) fL MCH 29.7 (27.0-31.0) pg MCHC 32.6 L (33.0-37.0) g/dL RDW 20.1 H (11.5-14.5) % Plt Count 221 (130-400) K/uL MPV 7.8 (7.2-11.7) fL Neut % (Auto) 94.3 H (50.0-75.0) % Lymph % (Auto) 2.8 L (20.0-40.0) % Kent % (Auto) 2.8 (0.0-10.0) % Eos % (Auto) 0.0 (0.0-4.0) % Baso % (Auto) 0.1 (0.0-2.0) % Neut # (Auto) 11.4 H (1.8-7.0) K/uL Lymph # (Auto) 0.3 L (1.0-4.3) K/uL Kent # (Auto) 0.3 (0.0-0.8) K/uL Eos # (Auto) 0.0 (0.0-0.7) K/uL Baso # (Auto) 0.0 (0.0-0.2) K/uL Neutrophils % (Manual) 97 H (50-75) % Lymphocytes % (Manual) 2 L (20-40) % Monocytes % (Manual) 1 (0-10) % Platelet Estimate Normal (NORMAL) Anisocytosis (manual) Moderate Macrocytosis (manual) Moderate Sodium 141 (132-148) mmol/L Potassium 4.8 (3.6-5.2) mmol/L Chloride 108 H (98-107) mmol/L Carbon Dioxide 26 (22-30) mmol/L Anion Gap 12 (10-20) BUN 20 (9-20) mg/dL Creatinine 0.7 L (0.8-1.5) mg/dL Est GFR ( Amer) > 60 Est GFR (Non-Af Amer) > 60 Random Glucose 134 H (75-110) mg/dL Calcium 9.0 (8.6-10.4) mg/dl Phosphorus 3.7 (2.5-4.5) mg/dL Magnesium 1.8 (1.6-2.3) mg/dL Total Bilirubin 0.6 (0.2-1.3) mg/dL AST 41 (17-59) U/L ALT 72 (21-72) U/L Alkaline Phosphatase 96 (38-126) U/L Total Protein 5.7 L (6.3-8.3) g/dL Albumin 2.7 L (3.5-5.0) g/dL Globulin 3.0 (2.2-3.9) gm/dL Albumin/Globulin Ratio 0.9 L (1.0-2.1) Random Vancomycin 10.7 ug/mL Levetiracetam mcg/mL 06/23/18 Range/Units 09:06 WBC (4.8-10.8) K/uL RBC (4.40-5.90) Mil/uL Hgb (12.0-18.0) g/dL Hct (35.0-51.0) % MCV (80.0-94.0) fL MCH (27.0-31.0) pg MCHC (33.0-37.0) g/dL RDW (11.5-14.5) % Plt Count (130-400) K/uL MPV (7.2-11.7) fL Neut % (Auto) (50.0-75.0) % Lymph % (Auto) (20.0-40.0) % Kent % (Auto) (0.0-10.0) % Eos % (Auto) (0.0-4.0) % Baso % (Auto) (0.0-2.0) % Neut # (Auto) (1.8-7.0) K/uL Lymph # (Auto) (1.0-4.3) K/uL Kent # (Auto) (0.0-0.8) K/uL Eos # (Auto) (0.0-0.7) K/uL Baso # (Auto) (0.0-0.2) K/uL Neutrophils % (Manual) (50-75) % Lymphocytes % (Manual) (20-40) % Monocytes % (Manual) (0-10) % Platelet Estimate (NORMAL) Anisocytosis (manual) Macrocytosis (manual) Sodium (132-148) mmol/L Potassium (3.6-5.2) mmol/L Chloride (98-107) mmol/L Carbon Dioxide (22-30) mmol/L Anion Gap (10-20) BUN (9-20) mg/dL Creatinine (0.8-1.5) mg/dL Est GFR ( Amer) Est GFR (Non-Af Amer) Random Glucose (75-110) mg/dL Calcium (8.6-10.4) mg/dl Phosphorus (2.5-4.5) mg/dL Magnesium (1.6-2.3) mg/dL Total Bilirubin (0.2-1.3) mg/dL AST (17-59) U/L ALT (21-72) U/L Alkaline Phosphatase (38-126) U/L Total Protein (6.3-8.3) g/dL Albumin (3.5-5.0) g/dL Globulin (2.2-3.9) gm/dL Albumin/Globulin Ratio (1.0-2.1) Random Vancomycin ug/mL Levetiracetam 24.0 mcg/mL Laboratory Results - last 24 hr 06/23/18 06/27/18 06/27/18 09:06 01:05 01:05 WBC 12.1 H RBC 4.04 L Hgb 12.0 Hct 36.8 MCV 91.0 MCH 29.7 MCHC 32.6 L RDW 20.1 H Plt Count 221 MPV 7.8 Neut % (Auto) 94.3 H Lymph % (Auto) 2.8 L Kent % (Auto) 2.8 Eos % (Auto) 0.0 Baso % (Auto) 0.1 Neut # (Auto) 11.4 H Lymph # (Auto) 0.3 L Kent # (Auto) 0.3 Eos # (Auto) 0.0 Baso # (Auto) 0.0 Neutrophils % (Manual) 97 H Lymphocytes % (Manual) 2 L Monocytes % (Manual) 1 Platelet Estimate Normal Anisocytosis (manual) Moderate Macrocytosis (manual) Moderate Sodium 141 Potassium 4.8 Chloride 108 H Carbon Dioxide 26 Anion Gap 12 BUN 20 Creatinine 0.7 L Est GFR ( Amer) > 60 Est GFR (Non-Af Amer) > 60 Random Glucose 134 H Calcium 9.0 Phosphorus 3.7 Magnesium 1.8 Total Bilirubin 0.6 AST 41 ALT 72 Alkaline Phosphatase 96 Total Protein 5.7 L Albumin 2.7 L Globulin 3.0 Albumin/Globulin Ratio 0.9 L Random Vancomycin Levetiracetam 24.0 06/27/18 01:05 WBC RBC Hgb Hct MCV MCH MCHC RDW Plt Count MPV Neut % (Auto) Lymph % (Auto) Kent % (Auto) Eos % (Auto) Baso % (Auto) Neut # (Auto) Lymph # (Auto) Kent # (Auto) Eos # (Auto) Baso # (Auto) Neutrophils % (Manual) Lymphocytes % (Manual) Monocytes % (Manual) Platelet Estimate Anisocytosis (manual) Macrocytosis (manual) Sodium Potassium Chloride Carbon Dioxide Anion Gap BUN Creatinine Est GFR ( Amer) Est GFR (Non-Af Amer) Random Glucose Calcium Phosphorus Magnesium Total Bilirubin AST ALT Alkaline Phosphatase Total Protein Albumin Globulin Albumin/Globulin Ratio Random Vancomycin 10.7 Levetiracetam Critical Care Progress Note - Nutrition Nutrition: Nutrition Category Date Time Status Dysphagia/Modified Consistency Diet [DIET] Diets 06/18/18 Lunch Active Attending/Attestation - Attestation I have personally seen and examined this patient.: Yes I have fully participated in the care of the patient.: Yes I have reviewed all pertinent clinical information: Yes
--- NOTE | 2018-06-26 15:41 | CP.PCM.PN ---
Subjective - Date & Time of Evaluation Date of Evaluation: 06/26/18 Time of Evaluation: 03:40 - Subjective Subjective: DICTATED Objective - Vital Signs/Intake and Output Vital Signs (last 24 hours): Temp Pulse Resp BP Pulse Ox 98.6 F 108 H 31 H 143/88 100 06/26/18 12:00 06/26/18 15:01 06/26/18 15:01 06/26/18 15:01 06/26/18 13:00 Intake and Output: 06/26/18 06/26/18 06:59 18:59 Intake Total 890 Output Total 1200 Balance -310 - Medications Medications: Current Medications Albuterol/Ipratropium (Duoneb 3 Mg/0.5 Mg (3 Ml) Ud) 3 ml INH RQ4 [facility] Last Admin: 06/26/18 07:45 Dose: Not Given Diltiazem HCl (Cardizem) 60 mg PO Q6H [facility] Last Admin: 06/26/18 05:12 Dose: 60 mg Folic Acid (Folic Acid) 1 mg PO DAILY [facility] Last Admin: 06/26/18 09:14 Dose: 1 mg Guaifenesin (Robitussin) 200 mg PO Q4H PRN PRN Reason: Cough and congestion Last Admin: 06/24/18 18:07 Dose: 200 mg Levetiracetam 250 mg/ Dextrose 102.5 mls @ 420 mls/hr IVPB Q12H [facility] Last Admin: 06/26/18 05:13 Dose: 420 mls/hr Meropenem 1 gm/ Sodium (Chloride) 100 mls @ 100 mls/hr IVPB Q8H [facility]ANK PRN Reason: Protocol Last Admin: 06/26/18 03:04 Dose: 100 mls/hr Lisinopril (Zestril) 10 mg PO DAILY [facility] Last Admin: 06/26/18 09:12 Dose: 10 mg Methylprednisolone (Solu-Medrol) 20 mg IV Q8H [facility] Last Admin: 06/26/18 08:15 Dose: 20 mg Multivitamins/Vitamin C (Multi-Delyn Liquid) 5 ml PO DAILY [facility] Last Admin: 06/26/18 09:14 Dose: 5 ml Pantoprazole Sodium (Protonix Ec Tab) 40 mg PO Q12 [facility] Last Admin: 06/26/18 09:14 Dose: 40 mg Saccharomyces Boulardii (Florastor) 250 mg PO BID [facility] Last Admin: 06/26/18 09:12 Dose: 250 mg Sucralfate (Carafate Oral Susp) 1 gm PO QID [facility] Last Admin: 06/26/18 09:14 Dose: 1 gm Thiamine HCl (Vitamin B1 Tab) 100 mg PO BID [facility] Last Admin: 06/26/18 09:14 Dose: 100 mg - Labs Labs: 06/26/18 06:32 06/26/18 06:32 PT 13.6 SECONDS (9.7-12.2) H 06/20/18 10:09 INR 1.2 06/20/18 10:09 APTT 40 SECONDS (21-34) H 06/10/18 23:37
[2018-06-27] MEDS: MethylPREDNISolone 40 mg Vial IV SCH ×3 (01:00→17:23)
[2018-06-27] MEDS: Albuterol-Ipratrop 3 mg / 0.5 (3 ml) UD INH SCH ×6 (01:04→19:35)
[2018-06-27 01:14] LABS: BASO % 0.1 % (0.0-2.0); LYMPH # 0.3 K/uL (1.0-4.3); LYMPH % 2.8 % (20.0-40.0); MEAN CORPUSCULAR HEMOGLOBIN 29.7 pg (27.0-31.0); MEAN CORPUSCULAR HGB CONC 32.6 g/dL (33.0-37.0); MEAN PLATELET VOLUME 7.8 fL (7.2-11.7); MONO # 0.3 K/uL (0.0-0.8); MONO % 2.8 % (0.0-10.0); NEUT # 11.4 K/uL (1.8-7.0); NEUT % 94.3 % (50.0-75.0); PLATELET COUNT 221 K/uL (130-400); RBC 4.04 Mil/uL (4.40-5.90); RED CELL DISTRIBUTION WIDTH 20.1 % (11.5-14.5); WHITE BLOOD COUNT 12.1 K/uL (4.8-10.8)
[2018-06-27 01:30] LABS: LYMPHOCYTE 2 % (20-40); MONOCYTE 1 % (0-10); NEUTROPHIL 97 % (50-75); PLATELET ESTIMATE NORMAL (NORMAL); TOTAL CELLS COUNTED 100
[2018-06-27 01:31] LABS: ANISOCYTOSIS MODERATE
[2018-06-27 01:32] LABS: ALB/GLOB RATIO 0.9 (1.0-2.1); ALBUMIN 2.7 g/dL (3.5-5.0); GFR NON-AFRICAN AMERICAN > 60
[2018-06-27 01:38] LABS: ALT/SGPT 72 U/L (21-72); AST/SGOT 41 U/L (17-59); BLOOD UREA NITROGEN 20 mg/dL (9-20)
--- NOTE | 2018-06-27 02:10 | PN ---
Copied To: Geno Sutton MD Attending MD: Geno Sutton MD DATE: 06/26/2018 SUBJECTIVE: The patient is a 52-year-old male. He is awake and alert, but he seems to be confused. He is in no respiratory distress. He wants a bottle of beer. He says it is lying there. I do not know if he was hallucinating, but that is all he was talking about. PHYSICAL EXAMINATION: GENERAL: T-max is 97.8, heart rate of 102, blood pressure 136/74, respirations are 19. HEENT: Head is atraumatic and normocephalic. NECK: Supple. LUNGS: Clear. Occasional rhonchi. HEART: S1, S2 are regular. No murmurs appreciated. ABDOMEN: Soft, nontender. No guarding. No rigidity present. EXTREMITIES: Have no edema. CENTRAL NERVOUS SYSTEM: He is alert and awake, but gets intermittently agitated. LABORATORY DATA: Labs are noted. Labs show white count is 11.3, hemoglobin is stable, platelets are 245. His chemistry is unremarkable. Creatinine 0.7. ASSESSMENT AND PLAN: Micro wire, his sputum showed Klebsiella and yeast. Since it showed Klebsiella pneumoniae, I have placed him on meropenem, but is very sensitive. His chest x-ray was noted. Chest x-ray, he had on 06/23/2018 showed small right effusion, left basilar linear scar, segmental atelectasis, no acute infiltrates. We started the meropenem 06/25/2018. We will follow. We will switch to Cipro by mouth very soon once he is transferred. Geno Sutton MD
[2018-06-27] MEDS: Sucralfate 1 gm/10 ml Oral Susp UD PO SCH ×4 (09:46→21:00)
[2018-06-27] MEDS: Pantoprazole 40 mg EC Tab PO SCH ×2 (09:47→21:00)
[2018-06-27] MEDS: Multiple Vitamins Oral Solution PO SCH (09:47)
[2018-06-27] MEDS: Saccharomyces Boulardi 250 mg Cap PO SCH ×2 (09:47→17:24)
--- NOTE | 2018-06-27 17:51 | CP.PCM.PN ---
Subjective - Date & Time of Evaluation Date of Evaluation: 06/27/18 Time of Evaluation: 13:30 - Subjective Subjective: Hospitalist Progress Note Patient was seen and examined at 1:30 PM with his mother present and this was ok with him Patient had to be redirected multiple times when going over ROS questions as he kept on asking when he could leave, if he could borrow some money, asking multiple times if he could outside for a smoke, and then speaking at length about he [place] [facility]. However he did answer NO to FULL ROS questions. Patient still very agitated at times: throwing his food earlier this morning and asking for other food items with repeatedly using the "F" word General: AAO x 3, NAD HEENT: NCA, PERRLA, EOMI, NO lymphadenopathy, NO thyromegaly, NO pharyngeal erythema/exudate Cardio: heart sounds are very faint however this exam is limited (NS1 and NS2, NO M/R/G) Respiratory: Course breath sounds diffusely GI: BSx4, Soft, NO HSM, NO guarding/rebound tenderness, ND, NT Ext: Radial pulses are strong and equal, Pedal pulses are weak, NO edema, Capillary Refill is 3 seconds, Bilateral lower legs with multiple round dry eschars Skin: Stage II Sacral Ulcer without any surrounding signs of cellulitis Assessment/Plan 1). Cardiopulmonary Arrest Assessment/Plan * Cardiology Dr. Iglesias bone plant supervisor-->help appreciated * PEA s/p ROSC NSR * Echocardiogram (06/12/18): ejection fraction: 45-50%, left ventricular diastolic function is abnormal. left atrium size looks normal right atrium size looks normal. trace to mild tricupsid regurgitaton * Solumedrol 40 mg IV Q8H (since 06/17/18) * EEG (06/15) shows an abnormal awake and drowsy EEG which is very slow, indicating encephalopathy or medication effect. Repeat EEG? * 2). Hyponatremia Assessment/Plan * Nephrology Dr. Shafer on board-->help appreciated * Secondary to Alcohol Abuse * Received 3 NS boluses in ER * Seizure precautions * Normalized 3). Hypokalemia/Hypomagnesemia/Hypophosphotemia Assessment/Plan * Replete as needed 4). Metabolic Acidosis Assessment/Plan * Likely secondary to the Cadriopulmonary Arrest, GI bleed, Respiratory Distress * Resolved 5). Seizure Assessment/Plan * Neurology Dr. Richie uRbi on board-->help appreciated * Risk factor: heavy alcohol use and hyponatremia, hypomagnesium * Head CT (06/11/18): no acute intracranial abnormality. Chronic microvascular ischemic changes. sinus mucosal disease as above * He has a history of alcohol withdrawal seizures * Patient is off Precedex * Keppra 250 mg PO Q12H * Recommend EEG if mental status does not improve after extubation and once off precedex 6). Anemia likely secondary to GI Bleed History of Peptic Ulcer Disease Bleeding Ulcer Assessment/Plan * GI Dr. Ho on consult help appreciated * CT Chest/abdomen/pelvis (06/12/18): distended bowel suggesting an ileus. Markedly limited evaluation of the bowel without oral or intravenous contrast. Suggestion of prior Bilroth 2 procedure. Fluid filled dilatation of small bowel andproximal colon. Fluid filled dilatation of the small bowel and prozimal colon. Fluid in the descending colon without a sharp transition sozne. Portions of transverse colon were not well visualized. * Monitor H/H and transfuse as needed * Carafate 1g qid * S/P EGD POD: 2 anastomotic ulcers with visible vessel s/p APC and 5 clips, one ulcer with visible vessel and adherent clot was not intervened on due to adverse location--->If pt develops further bleeding will need IR and Surgery on board, difficult to treat endoscopically * Monitor H/H: received 2 units on 06/16/18 and is currently stable * Protonix 40mg PO BID * No NSAIDS and strong history of alcohol abuse 7). Hypocalcemia Assessment/Plan * Monitor 8). Acute Respiratory Failure Aspiration Pneumonia Assessment/Plan * CT Chest 06/11/18: thinned walled cavity in the right upper lobe which may be the sequelae of prior infection 5mm subpleural nodule within the anterior right middle lobe. Focal consolidation within the inferior right middle lobe. Focal consolidation within the right lower lobe. Patchy ground glass opacities in both lungs which and nonspecific but may secondary to alectasis versus contusion versus pneumonitis. * Chest xray (06/23/18): small right pleural effusion. left basilar linear scar/ subsegmental atelectasis. no acute infiltrate. * Extubated 06/12/18 and Re-intubated on 06/14/18 and extubated 06/17/18 * Patient has productive cough * Robotussin 200mg POq4H PRN cough and congestion * Chest physiotherapy * Tracheal Aspirate 06/16/18 showed Yeast and was treated with Fluconazole 100 IV and was discontinued once repeat Sputum 06/22/18 showed Klebsiella which is sensitive to Ciprofloxacin * Was treated with Meropenem 1gram IV Q8H and Vancomycin 1 gram IV Q12H and NOW to complete Cipro 500 mg PO 2x/day through 07/02/18 9) Open Wounds on Sacrum Stage II Assessment/Plan * Turn [id number] * MediHoney with Optifoam Dressing * Latest wound care note: (06/22/18) WOUND CARE NOTE-Patient re-assessed; found to have improving MASD, Moisture associated skin damage to sacral/coccyx regions. Skin continues with blanchable erythema; erosions resolving. recommending to continue aloevesta protective ointment to entire sacral/coccyx regions 3x/day and prn for incontinent episodes. Must reposition this patient frequently to optimize offloading. Will continue to follow. 10) Bilateral Anterior Rib and Sternal Fractures Assessment/Plan * Noted on CT Chest * Secondary to CPR given cardiopulmonary arrest 11) Systolic and Diastolic Heart Failure * Echocardiogram 06/12/18 shows EF at 45-50%, left ventricular diastolic function abnormal with Grade I abnormal relaxation pattern, trace to mild ticuspid regurgitation * Lisinopril 10 mg PO 1x/day * Cardizem 60mg PO Q6H * Aspirin contraindication secondary to bleeding ulcer 12) Urinary tract infection-->resolved * Treated with Zosyn 3.375g IV Q8H * Repeat urine culture 06/13/18 showed NO growth 13) Bacteremia-->resolved * Repeat blood culture 06/12/18 is negative at 5 days 14) Alcoholism Alcoholic Liver Disease * Hx heavy use * Off Precedex * Off Librium 25 mg PO Q8H 06/22/18 * MVI PO 1x/day * Thiamine 100mg PO BID * Folic acid 1mg PO daily * MVI 5 ml PO daily * Abdominal US report available in the EMR: limited but liver changes 15) Prophylactic measure * Protonix 40 mg PO Q12H * Lactobacillus 1 cap PO 2x/day * Chemical anticoagulation held secondary to GI bleed * Turn [id number] * Aspiration precautions * Seizure precautions * Wound care on board * PT/OT eval Prem J. Noland, D.O. Objective - Vital Signs/Intake and Output Vital Signs (last 24 hours): Temp Pulse Resp BP Pulse Ox 98.1 F 122 H 22 120/69 99 06/27/18 12:00 06/27/18 14:00 06/27/18 14:00 06/27/18 12:49 06/27/18 14:00 Intake and Output: 06/27/18 06/27/18 06:59 18:59 Intake Total 500 Output Total 300 Balance 200 - Medications Medications: Current Medications Albuterol/Ipratropium (Duoneb 3 Mg/0.5 Mg (3 Ml) Ud) 3 ml INH RQ4 [facility] Last Admin: 06/27/18 15:38 Dose: Not Given Ciprofloxacin (Cipro) 500 mg PO BID [facility] PRN Reason: Protocol Stop: 07/02/18 10:01 Last Admin: 06/27/18 17:24 Dose: 500 mg Diltiazem HCl (Cardizem) 60 mg PO Q6H [facility] Last Admin: 06/27/18 11:32 Dose: 60 mg Folic Acid (Folic Acid) 1 mg PO DAILY [facility] Last Admin: 06/27/18 09:48 Dose: 1 mg Guaifenesin (Robitussin) 200 mg PO Q4H PRN PRN Reason: Cough and congestion Last Admin: 06/24/18 18:07 Dose: 200 mg Haloperidol Lactate (Haldol) 2 mg IVP Q6H PRN PRN Reason: Agitation Last Admin: 06/27/18 17:10 Dose: 2 mg Levetiracetam (Keppra) 250 mg PO BID [facility] Last Admin: 06/27/18 17:24 Dose: 250 mg Lisinopril (Zestril) 10 mg PO DAILY [facility] Last Admin: 06/27/18 09:48 Dose: 10 mg Methylprednisolone (Solu-Medrol) 20 mg IV Q8H [facility] Last Admin: 06/27/18 17:23 Dose: 20 mg Multivitamins/Vitamin C (Multi-Delyn Liquid) 5 ml PO DAILY [facility] Last Admin: 06/27/18 09:47 Dose: 5 ml Pantoprazole Sodium (Protonix Ec Tab) 40 mg PO Q12 [facility] Last Admin: 06/27/18 09:47 Dose: 40 mg Saccharomyces Boulardii (Florastor) 250 mg PO BID [facility] Last Admin: 06/27/18 17:24 Dose: 250 mg Sucralfate (Carafate Oral Susp) 1 gm PO QID [facility] Last Admin: 06/27/18 17:24 Dose: 1 gm Thiamine HCl (Vitamin B1 Tab) 100 mg PO BID [facility] Last Admin: 06/27/18 17:26 Dose: 100 mg - Labs Labs: 06/27/18 01:05 06/27/18 01:05 PT 13.6 SECONDS (9.7-12.2) H 06/20/18 10:09 INR 1.2 06/20/18 10:09 APTT 40 SECONDS (21-34) H 06/10/18 23:37
[2018-06-27] MEDS: Lactobacillus Acidophilus 500 MU Cap PO SCH (18:53)
--- NOTE | 2018-06-27 19:57 | CP.PCM.PN ---
Subjective - Date & Time of Evaluation Date of Evaluation: 06/27/18 Time of Evaluation: 14:20 - Subjective Subjective: dictated Objective - Vital Signs/Intake and Output Vital Signs (last 24 hours): Temp Pulse Resp BP Pulse Ox 98 F 111 H 23 129/67 99 06/27/18 16:00 06/27/18 18:00 06/27/18 18:00 06/27/18 17:13 06/27/18 16:00 Intake and Output: 06/27/18 06/28/18 18:59 06:59 Intake Total 400 Output Total 381 Balance 19 - Medications Medications: Current Medications Albuterol/Ipratropium (Duoneb 3 Mg/0.5 Mg (3 Ml) Ud) 3 ml INH RQ4 [facility] Last Admin: 06/27/18 19:35 Dose: 3 ml Ciprofloxacin (Cipro) 500 mg PO BID [facility] PRN Reason: Protocol Stop: 07/02/18 10:01 Last Admin: 06/27/18 17:24 Dose: 500 mg Diltiazem HCl (Cardizem) 60 mg PO Q6H [facility] Last Admin: 06/27/18 18:29 Dose: 60 mg Folic Acid (Folic Acid) 1 mg PO DAILY [facility] Last Admin: 06/27/18 09:48 Dose: 1 mg Guaifenesin (Robitussin) 200 mg PO Q4H PRN PRN Reason: Cough and congestion Last Admin: 06/24/18 18:07 Dose: 200 mg Haloperidol Lactate (Haldol) 2 mg IVP Q6H PRN PRN Reason: Agitation Last Admin: 06/27/18 17:10 Dose: 2 mg Lactobacillus Acidophilus (Bacid Acidophilus) 1 cap PO BID [facility] Last Admin: 06/27/18 18:53 Dose: 1 cap Levetiracetam (Keppra) 250 mg PO BID [facility] Last Admin: 06/27/18 17:24 Dose: 250 mg Lisinopril (Zestril) 10 mg PO DAILY [facility] Last Admin: 06/27/18 09:48 Dose: 10 mg Methylprednisolone (Solu-Medrol) 20 mg IV Q8H [facility] Last Admin: 06/27/18 17:23 Dose: 20 mg Multivitamins/Vitamin C (Multi-Delyn Liquid) 5 ml PO DAILY [facility] Last Admin: 06/27/18 09:47 Dose: 5 ml Pantoprazole Sodium (Protonix Ec Tab) 40 mg PO Q12 [facility] Last Admin: 06/27/18 09:47 Dose: 40 mg Sucralfate (Carafate Oral Susp) 1 gm PO QID [facility] Last Admin: 06/27/18 17:24 Dose: 1 gm Thiamine HCl (Vitamin B1 Tab) 100 mg PO BID [facility] Last Admin: 06/27/18 17:26 Dose: 100 mg - Labs Labs: 06/27/18 01:05 06/27/18 01:05 PT 13.6 SECONDS (9.7-12.2) H 06/20/18 10:09 INR 1.2 06/20/18 10:09 APTT 40 SECONDS (21-34) H 06/10/18 23:37
[2018-06-28] MEDS: MethylPREDNISolone 40 mg Vial IV SCH ×3 (00:15→17:26)
[2018-06-28] MEDS: Albuterol-Ipratrop 3 mg / 0.5 (3 ml) UD INH SCH ×6 (00:46→23:29)
--- NOTE | 2018-06-28 01:20 | PN ---
Copied To: Geno Sutton MD Attending MD: Geno Sutton MD DATE: 06/27/2018 SUBJECTIVE: The patient was seen today. He wanted to eat and he says he wanted Pepsi, otherwise he wanted a sandwich and he says he is fine. I was told he cannot eat solids, so he remains weak, but he is able to communicate. PHYSICAL EXAMINATION: VITAL SIGNS: T max is 98, blood pressure is , respirations are 22, saturation 99. HEENT: Head is atraumatic, normocephalic. NECK: Supple. LUNGS: Clear. Occasional rhonchi. HEART: S1, S2 are regular. CHEST: He has a flail chest. ABDOMEN: Soft, nontender. No guarding, no rigidity present. LABORATORY DATA: Labs show white count is 12.1 today and hemoglobin 12, hematocrit 36.8 and platelet count is 221. ASSESSMENT AND PLAN: He is on Merrem at this time and we will switch over to Cipro soon if he remains stable, Cipro p.o., that would complete the course. He has history of alcohol abuse and came in after a cardiac arrest and has been here for several days from 06/11/2018. Geno Sutton MD
[2018-06-28] MEDS: Pantoprazole 40 mg EC Tab PO SCH ×2 (10:10→21:45)
[2018-06-28] MEDS: Multiple Vitamins Oral Solution PO SCH (10:10)
[2018-06-28] MEDS: Sucralfate 1 gm/10 ml Oral Susp UD PO SCH ×4 (10:12→21:38)
[2018-06-28] MEDS: Lactobacillus Acidophilus 500 MU Cap PO SCH ×2 (12:25→17:26)
--- NOTE | 2018-06-28 18:16 | CP.PCM.PN ---
Subjective - Date & Time of Evaluation Date of Evaluation: 06/28/18 Time of Evaluation: 18:00 - Subjective Subjective: Hospitalist Progress Note Patient was seen and examined at 6:00 PM 06/28/18 Spoke with Nurse Yadira: Patient tolerated his meals However very beligerant, cursing at time at her and other nurses, throwing punches all of which required the use of Haldol General: resting comfortably at the time of my exam and cooperative with exam. Believes that he has at home and it is June 11 1918 HEENT: NCA, PERRLA, EOMI, NO lymphadenopathy, NO thyromegaly, NO pharyngeal erythema/exudate Cardio: heart sounds are very faint however this exam is limited (NS1 and NS2, NO M/R/G) Respiratory: Course breath sounds diffusely GI: BSx4, Soft, NO HSM, NO guarding/rebound tenderness, ND, NT Ext: Radial pulses are strong and equal, Pedal pulses are weak, NO edema, Capillary Refill is 3 seconds, Bilateral lower legs with multiple round dry eschars Skin: Stage II Sacral Ulcer without any surrounding signs of cellulitis Assessment/Plan 1). Cardiopulmonary Arrest Assessment/Plan * Cardiology Dr. Iglesias employee communications coordinator-->help appreciated * PEA s/p ROSC NSR * Echocardiogram (06/12/18): ejection fraction: 45-50%, left ventricular diastolic function is abnormal. left atrium size looks normal right atrium size looks normal. trace to mild tricupsid regurgitaton * Solumedrol 40 mg IV Q8H (since 06/17/18) * EEG (06/15) shows an abnormal awake and drowsy EEG which is very slow, indicating encephalopathy or medication effect. Repeat EEG? * 2). Hyponatremia Assessment/Plan * Nephrology Dr. Shafer on board-->help appreciated * Secondary to Alcohol Abuse * Received 3 NS boluses in ER * Seizure precautions * Normalized 3). Hypokalemia/Hypomagnesemia/Hypophosphotemia Assessment/Plan * Replete as needed 4). Metabolic Acidosis Assessment/Plan * Likely secondary to the Cadriopulmonary Arrest, GI bleed, Respiratory Distress * Resolved 5). Seizure Assessment/Plan * Neurology Dr. Richie Rubi on board-->help appreciated * Risk factor: heavy alcohol use and hyponatremia, hypomagnesium * Head CT (06/11/18): no acute intracranial abnormality. Chronic microvascular ischemic changes. sinus mucosal disease as above * He has a history of alcohol withdrawal seizures * Patient is off Precedex * Keppra 250 mg PO Q12H * Recommend EEG if mental status does not improve after extubation and once off precedex 6). Anemia likely secondary to GI Bleed History of Peptic Ulcer Disease Bleeding Ulcer Assessment/Plan * GI Dr. Ho on consult help appreciated * CT Chest/abdomen/pelvis (06/12/18): distended bowel suggesting an ileus. Markedly limited evaluation of the bowel without oral or intravenous contrast. Suggestion of prior Bilroth 2 procedure. Fluid filled dilatation of small bowel andproximal colon. Fluid filled dilatation of the small bowel and prozimal colon. Fluid in the descending colon without a sharp transition sozne. Portions of transverse colon were not well visualized. * Monitor H/H and transfuse as needed * Carafate 1g qid * S/P EGD POD: 2 anastomotic ulcers with visible vessel s/p APC and 5 clips, one ulcer with visible vessel and adherent clot was not intervened on due to adverse location--->If pt develops further bleeding will need IR and Surgery on board, difficult to treat endoscopically * Monitor H/H: received 2 units on 06/16/18 and is currently stable * Protonix 40mg PO BID * No NSAIDS and strong history of alcohol abuse 7). Hypocalcemia Assessment/Plan * Monitor 8). Acute Respiratory Failure Aspiration Pneumonia Assessment/Plan * CT Chest 06/11/18: thinned walled cavity in the right upper lobe which may be the sequelae of prior infection 5mm subpleural nodule within the anterior right middle lobe. Focal consolidation within the inferior right middle lobe. Focal consolidation within the right lower lobe. Patchy ground glass opacities in both lungs which and nonspecific but may secondary to alectasis versus contusion versus pneumonitis. * Chest xray (06/23/18): small right pleural effusion. left basilar linear scar/ subsegmental atelectasis. no acute infiltrate. * Extubated 06/12/18 and Re-intubated on 06/14/18 and extubated 06/17/18 * Patient has productive cough * Robotussin 200mg POq4H PRN cough and congestion * Chest physiotherapy * Tracheal Aspirate 06/16/18 showed Yeast and was treated with Fluconazole 100 IV and was discontinued once repeat Sputum 06/22/18 showed Klebsiella which is sensitive to Ciprofloxacin * Was treated with Meropenem 1gram IV Q8H and Vancomycin 1 gram IV Q12H and NOW to complete Cipro 500 mg PO 2x/day through 07/02/18 9) Open Wounds on Sacrum Stage II Assessment/Plan * Turn [id number] * MediHoney with Optifoam Dressing * Latest wound care note: (06/22/18) WOUND CARE NOTE-Patient re-assessed; found to have improving MASD, Moisture associated skin damage to sacral/coccyx regions. Skin continues with blanchable erythema; erosions resolving. recommending to continue aloevesta protective ointment to entire sacral/coccyx regions 3x/day and prn for incontinent episodes. Must reposition this patient frequently to optimize offloading. Will continue to follow. 10) Bilateral Anterior Rib and Sternal Fractures Assessment/Plan * Noted on CT Chest * Secondary to CPR given cardiopulmonary arrest 11) Systolic and Diastolic Heart Failure * Echocardiogram 06/12/18 shows EF at 45-50%, left ventricular diastolic function abnormal with Grade I abnormal relaxation pattern, trace to mild ticuspid regurgitation * Lisinopril 10 mg PO 1x/day * Cardizem 60mg PO Q6H * Aspirin contraindication secondary to bleeding ulcer 12) Urinary tract infection-->resolved * Treated with Zosyn 3.375g IV Q8H * Repeat urine culture 06/13/18 showed NO growth 13) Bacteremia-->resolved * Repeat blood culture 06/12/18 is negative at 5 days 14) Alcoholism Alcoholic Liver Disease * Hx heavy use * Off Precedex * Off Librium 25 mg PO Q8H 06/22/18 * MVI PO 1x/day * Thiamine 100mg PO BID * Folic acid 1mg PO daily * MVI 5 ml PO daily * Abdominal US report available in the EMR: limited but liver changes 15) Prophylactic measure * Protonix 40 mg PO Q12H * Lactobacillus 1 cap PO 2x/day * Chemical anticoagulation held secondary to GI bleed * Haldol 2 mg IV Q6H PRN Agitation * Turn [id number] * Aspiration precautions * Seizure precautions * Wound care on board * PT/OT eval Considering that the patient is now not aware of the correct date and believes that he is at home and not at the hospital (on the day prior he was asking me to discharge him from here the hospital so that he could go home and help take care of his mother), I have ordered CT Head without contrast. Prem Noland D.O. Objective - Vital Signs/Intake and Output Vital Signs (last 24 hours): Temp Pulse Resp BP Pulse Ox 98.5 F 100 H 26 H 136/69 98 06/28/18 12:00 06/28/18 12:03 06/28/18 12:03 06/28/18 12:03 06/28/18 12:03 Intake and Output: 06/28/18 06/28/18 06:59 18:59 Intake Total 460 Output Total 1000 Balance -540 - Medications Medications: Current Medications Albuterol/Ipratropium (Duoneb 3 Mg/0.5 Mg (3 Ml) Ud) 3 ml INH RQ4 [facility] Last Admin: 06/28/18 15:38 Dose: 3 ml Ciprofloxacin (Cipro) 500 mg PO BID [facility] PRN Reason: Protocol Stop: 07/02/18 10:01 Last Admin: 06/28/18 17:27 Dose: 500 mg Diltiazem HCl (Cardizem) 60 mg PO Q6H [facility] Last Admin: 06/28/18 17:27 Dose: 60 mg Folic Acid (Folic Acid) 1 mg PO DAILY [facility] Last Admin: 06/28/18 10:11 Dose: 1 mg Guaifenesin (Robitussin) 200 mg PO Q4H PRN PRN Reason: Cough and congestion Last Admin: 06/24/18 18:07 Dose: 200 mg Haloperidol Lactate (Haldol) 2 mg IVP Q6H PRN PRN Reason: Agitation Last Admin: 06/28/18 12:25 Dose: 2 mg Lactobacillus Acidophilus (Bacid Acidophilus) 1 cap PO BID [facility] Last Admin: 06/28/18 17:26 Dose: 1 cap Levetiracetam (Keppra) 250 mg PO BID [facility] Last Admin: 06/28/18 17:27 Dose: 250 mg Lisinopril (Zestril) 10 mg PO DAILY [facility] Last Admin: 06/28/18 10:10 Dose: 10 mg Methylprednisolone (Solu-Medrol) 20 mg IV Q8H [facility] Last Admin: 06/28/18 17:26 Dose: 20 mg Multivitamins/Vitamin C (Multi-Delyn Liquid) 5 ml PO DAILY [facility] Last Admin: 06/28/18 10:10 Dose: 5 ml Pantoprazole Sodium (Protonix Ec Tab) 40 mg PO Q12 [facility] Last Admin: 06/28/18 10:10 Dose: 40 mg Sucralfate (Carafate Oral Susp) 1 gm PO QID [facility] Last Admin: 06/28/18 17:26 Dose: 1 gm Thiamine HCl (Vitamin B1 Tab) 100 mg PO BID [facility] Last Admin: 06/28/18 17:26 Dose: 100 mg - Labs Labs: 06/27/18 01:05 06/27/18 01:05 PT 13.6 SECONDS (9.7-12.2) H 06/20/18 10:09 INR 1.2 06/20/18 10:09 APTT 40 SECONDS (21-34) H 06/10/18 23:37
--- NOTE | 2018-06-28 22:10 | CP.PCM.PN ---
Subjective - Date & Time of Evaluation Date of Evaluation: 06/28/18 Time of Evaluation: 16:00 - Subjective Subjective: dictated Objective - Vital Signs/Intake and Output Vital Signs (last 24 hours): Temp Pulse Resp BP Pulse Ox 98.1 F 101 H 18 119/83 99 06/28/18 20:00 06/28/18 20:00 06/28/18 20:00 06/28/18 20:00 06/28/18 20:00 Intake and Output: 06/28/18 06/29/18 18:59 06:59 Intake Total 400 Output Total 700 Balance -300 - Medications Medications: Current Medications Albuterol/Ipratropium (Duoneb 3 Mg/0.5 Mg (3 Ml) Ud) 3 ml INH RQ4 [facility] Last Admin: 06/28/18 19:24 Dose: Not Given Ciprofloxacin (Cipro) 500 mg PO BID [facility] PRN Reason: Protocol Stop: 07/02/18 10:01 Last Admin: 06/28/18 17:27 Dose: 500 mg Diltiazem HCl (Cardizem) 60 mg PO Q6H [facility] Last Admin: 06/28/18 17:27 Dose: 60 mg Folic Acid (Folic Acid) 1 mg PO DAILY [facility] Last Admin: 06/28/18 10:11 Dose: 1 mg Guaifenesin (Robitussin) 200 mg PO Q4H PRN PRN Reason: Cough and congestion Last Admin: 06/24/18 18:07 Dose: 200 mg Haloperidol Lactate (Haldol) 2 mg IVP Q6H PRN PRN Reason: Agitation Last Admin: 06/28/18 18:46 Dose: 2 mg Lactobacillus Acidophilus (Bacid Acidophilus) 1 cap PO BID [facility] Last Admin: 06/28/18 17:26 Dose: 1 cap Levetiracetam (Keppra) 250 mg PO BID [facility] Last Admin: 06/28/18 17:27 Dose: 250 mg Lisinopril (Zestril) 10 mg PO DAILY [facility] Last Admin: 06/28/18 10:10 Dose: 10 mg Methylprednisolone (Solu-Medrol) 20 mg IV Q8H [facility] Last Admin: 06/28/18 17:26 Dose: 20 mg Multivitamins/Vitamin C (Multi-Delyn Liquid) 5 ml PO DAILY [facility] Last Admin: 06/28/18 10:10 Dose: 5 ml Pantoprazole Sodium (Protonix Ec Tab) 40 mg PO Q12 [facility] Last Admin: 06/28/18 21:45 Dose: 40 mg Sucralfate (Carafate Oral Susp) 1 gm PO QID [facility] Last Admin: 06/28/18 21:38 Dose: 1 gm Thiamine HCl (Vitamin B1 Tab) 100 mg PO BID [facility] Last Admin: 06/28/18 17:26 Dose: 100 mg - Labs Labs: 06/27/18 01:05 06/27/18 01:05 PT 13.6 SECONDS (9.7-12.2) H 06/20/18 10:09 INR 1.2 06/20/18 10:09 APTT 40 SECONDS (21-34) H 06/10/18 23:37
[2018-06-29] MEDS: MethylPREDNISolone 40 mg Vial IV SCH ×3 (01:00→17:25)
[2018-06-29] MEDS: Albuterol-Ipratrop 3 mg / 0.5 (3 ml) UD INH SCH ×5 (03:07→20:54)
--- NOTE | 2018-06-29 03:27 | PN ---
Copied To: Geno Sutton MD Attending MD: Geno Sutton MD DATE: 06/28/2018 SUBJECTIVE: The patient remains confused, awake. He is asking for food, he was eating yogurt when I saw him and he thinks that he has some visual hallucinations, and he was throwing punches at all and he was agitated. PHYSICAL EXAMINATION: HEENT: Head is atraumatic, normocephalic. NECK: Supple. LUNGS: He did have some rhonchi. HEART: S1, S2. Tachycardic. ABDOMEN: Soft, nontender. No guarding, no rigidity present. EXTREMITIES: Had no edema. LABORATORY DATA: White count is 12.1, hemoglobin 12, hematocrit 36.8, platelets are 221, BUN is 20, creatinine 0.7. ASSESSMENT AND PLAN: At this time, the patient has had Klebsiella in the sputum and he is on Cipro and he was switched to Cipro p.o. recently, will continue that and we will follow. He needs at least five days of Cipro. Geno Sutton MD
[2018-06-29] MEDS: Pantoprazole 40 mg EC Tab PO SCH ×2 (09:16→21:50)
[2018-06-29] MEDS: Lactobacillus Acidophilus 500 MU Cap PO SCH ×4 (09:21→19:30)
[2018-06-29] MEDS: Multiple Vitamins Oral Solution PO SCH (09:21)
[2018-06-29] MEDS: Sucralfate 1 gm/10 ml Oral Susp UD PO SCH ×4 (09:24→21:49)
--- NOTE | 2018-06-29 10:07 | CT ---
Date of service: 06/29/2018 PROCEDURE: CT HEAD WITHOUT CONTRAST. HISTORY: Change in Mental Status COMPARISON: Noncontrast head CT 06/11/2018. TECHNIQUE: Axial computed tomography images were obtained through the head/brain without intravenous contrast. Radiation dose: Total exam DLP = 922.88 mGy-cm. This CT exam was performed using one or more of the following dose reduction techniques: Automated exposure control, adjustment of the mA and/or kV according to patient size, and/or use of iterative reconstruction technique. FINDINGS: HEMORRHAGE: No intracranial hemorrhage. BRAIN: Expanded ventricular sulcal and cisternal spaces are identified compatible with mild diffuse cerebral atrophy. Further, borderline periventricular white matter lucency is question once again suggesting limited chronic microangiopathy. These findings appears somewhat advanced for the patient's stated age of 52 years and clinical correlation is advised. There is no mass effect or cortical edema. There is no significant finding in the posterior fossa with the brainstem unremarkable. No suspicious extra-axial collection. VENTRICLES: Unremarkable. No hydrocephalus. CALVARIUM: The calvarium is intact as well skullbase with incidental deformity of the right zygomatic arch reiterated. PARANASAL SINUSES: Unremarkable as visualized. No significant inflammatory changes. MASTOID AIR CELLS: Unremarkable as visualized. No inflammatory changes. OTHER FINDINGS: None. IMPRESSION: Stable diffuse cerebral atrophy and limited chronic microangiopathy, though somewhat advanced for the patient's stated age of 52 years. Clinically correlate further. No definite acute intracranial findings grossly. Exam stable compared prior head CT 06/11/2018.
--- NOTE | 2018-06-29 11:28 | CP.PCM.PN ---
Subjective - Date & Time of Evaluation Date of Evaluation: 06/29/18 Time of Evaluation: 11:00 - Subjective Subjective: Hospitalist Progress Note Patient was seen at 11:00 AM 06/29/18 Spoke with Nurse Yadira: Patient tolerated his meals and moving his bowels Continues to have bilateral hand mittens on due to his combative behavior During my conversation with patient today he stated that he needed pants so that he could leave He knows that he is in [facility] Would not answer questions posed to him and stated that he wanted to speak with his mother who he stated was outside his room. When I explained to him that his mother was not here he became upset stating that "these fucking people were not listening to me" He was swinging his arms around at me therefore exam was not attempted today Spoke with Psychiatrist Dr. Huerta and explained to him my concerns about the possibility of schizophrenia. Dr. Huerta opinion is that this is likely related to his history of alcohol abuse. However he did recommend starting him on low dose Abilify at 5 mg PO 1x/day and this has been ordered. Spoke with Learning And Development Specialist Leonila and expressed to her my concerns about termite treater placement for this patient as in his current state I do not believe that he has the ability to care for himself. She has arranged for [facility] in [place] and we are awaiting insurance authorization and once approved will transfer him there after he completes treatment with Ciprofloxacin (please see Assessment and Plan #8 below) CT Head w/o contrast 06/29/18: stable diffuse cerebral atrophy and limited chronic microangiopathy though somewhat advanced for the patient's stated age of 52 years. NO definite acute intracranial findings. Stable when compared to Assessment/Plan 1). Cardiopulmonary Arrest Assessment/Plan * Cardiology Dr. Iglesias environmental adviser-->help appreciated * PEA s/p ROSC NSR * Echocardiogram (06/12/18): ejection fraction: 45-50%, left ventricular diastolic function is abnormal. left atrium size looks normal right atrium size looks normal. trace to mild tricupsid regurgitaton * Solumedrol 40 mg IV Q8H (since 06/17/18) * EEG (06/15) shows an abnormal awake and drowsy EEG which is very slow, indicating encephalopathy or medication effect. Repeat EEG? * 2). Hyponatremia Assessment/Plan * Nephrology Dr. Shafer on board-->help appreciated * Secondary to Alcohol Abuse * Received 3 NS boluses in ER * Seizure precautions * Normalized 3). Hypokalemia/Hypomagnesemia/Hypophosphotemia Assessment/Plan * Replete as needed 4). Metabolic Acidosis Assessment/Plan * Likely secondary to the Cadriopulmonary Arrest, GI bleed, Respiratory Distress * Resolved 5). Seizure Assessment/Plan * Neurology Dr. Richie Rubi on board-->help appreciated * Risk factor: heavy alcohol use and hyponatremia, hypomagnesium * Head CT (06/11/18): no acute intracranial abnormality. Chronic microvascular ischemic changes. sinus mucosal disease as above * He has a history of alcohol withdrawal seizures * Patient is off Precedex * Keppra 250 mg PO Q12H * Recommend EEG if mental status does not improve after extubation and once off precedex 6). Anemia likely secondary to GI Bleed History of Peptic Ulcer Disease Bleeding Ulcer Assessment/Plan * GI Dr. Ho on consult help appreciated * CT Chest/abdomen/pelvis (06/12/18): distended bowel suggesting an ileus. Markedly limited evaluation of the bowel without oral or intravenous contrast. Suggestion of prior Bilroth 2 procedure. Fluid filled dilatation of small bowel andproximal colon. Fluid filled dilatation of the small bowel and prozimal colon. Fluid in the descending colon without a sharp transition sozne. Portions of transverse colon were not well visualized. * Monitor H/H and transfuse as needed * Carafate 1g qid * S/P EGD POD: 2 anastomotic ulcers with visible vessel s/p APC and 5 clips, one ulcer with visible vessel and adherent clot was not intervened on due to adverse location--->If pt develops further bleeding will need IR and Surgery on board, difficult to treat endoscopically * Monitor H/H: received 2 units on 06/16/18 and is currently stable * Protonix 40mg PO BID * No NSAIDS and strong history of alcohol abuse 7). Hypocalcemia Assessment/Plan * Monitor 8). Acute Respiratory Failure Aspiration Pneumonia Assessment/Plan * CT Chest 06/11/18: thinned walled cavity in the right upper lobe which may be the sequelae of prior infection 5mm subpleural nodule within the anterior right middle lobe. Focal consolidation within the inferior right middle lobe. Focal consolidation within the right lower lobe. Patchy ground glass opacities in both lungs which and nonspecific but may secondary to alectasis versus contusion versus pneumonitis. * Chest xray (06/23/18): small right pleural effusion. left basilar linear scar/ subsegmental atelectasis. no acute infiltrate. * Extubated 06/12/18 and Re-intubated on 06/14/18 and extubated 06/17/18 * Patient has productive cough * Robotussin 200mg POq4H PRN cough and congestion * Chest physiotherapy * Tracheal Aspirate 06/16/18 showed Yeast and was treated with Fluconazole 100 IV and was discontinued once repeat Sputum 06/22/18 showed Klebsiella which is sensitive to Ciprofloxacin * Was treated with Meropenem 1gram IV Q8H and Vancomycin 1 gram IV Q12H and NOW to complete Cipro 500 mg PO 2x/day through 07/02/18 9) Open Wounds on Sacrum Stage II Assessment/Plan * Turn [id number] * MediHoney with Optifoam Dressing * Latest wound care note: (06/22/18) WOUND CARE NOTE-Patient re-assessed; found to have improving MASD, Moisture associated skin damage to sacral/coccyx regions. Skin continues with blanchable erythema; erosions resolving. recommending to continue aloevesta protective ointment to entire sacral/coccyx regions 3x/day and prn for incontinent episodes. Must reposition this patient frequently to optimize offloading. Will continue to follow. 10) Bilateral Anterior Rib and Sternal Fractures Assessment/Plan * Noted on CT Chest * Secondary to CPR given cardiopulmonary arrest 11) Systolic and Diastolic Heart Failure * Echocardiogram 06/12/18 shows EF at 45-50%, left ventricular diastolic function abnormal with Grade I abnormal relaxation pattern, trace to mild ticuspid regurgitation * Lisinopril 10 mg PO 1x/day * Cardizem 60mg PO Q6H * Aspirin contraindication secondary to bleeding ulcer 12) Urinary tract infection-->resolved * Treated with Zosyn 3.375g IV Q8H * Repeat urine culture 06/13/18 showed NO growth 13) Bacteremia-->resolved * Repeat blood culture 06/12/18 is negative at 5 days 14) Alcoholism Alcoholic Liver Disease * Hx heavy use * Off Precedex * Off Librium 25 mg PO Q8H 06/22/18 * MVI PO 1x/day * Thiamine 100mg PO BID * Folic acid 1mg PO daily * MVI 5 ml PO daily * Abdominal US report available in the EMR: limited but liver changes 15) Prophylactic measure * Protonix 40 mg PO Q12H * Lactobacillus 1 cap PO 2x/day * Chemical anticoagulation held secondary to GI bleed * Haldol 2 mg IV Q6H PRN Agitation * Turn [id number] * Aspiration precautions * Seizure precautions * Wound care on board * PT/OT katherin Noland D.O. Objective - Vital Signs/Intake and Output Vital Signs (last 24 hours): Temp Pulse Resp BP Pulse Ox 98.3 F 98 H 21 138/85 100 06/29/18 04:00 06/29/18 04:00 06/29/18 04:00 06/29/18 04:00 06/29/18 04:00 Intake and Output: 06/29/18 06/29/18 06:59 18:59 Intake Total 420 Output Total 1000 Balance -580 - Medications Medications: Current Medications Albuterol/Ipratropium (Duoneb 3 Mg/0.5 Mg (3 Ml) Ud) 3 ml INH RQ4 [facility] Last Admin: 06/29/18 07:10 Dose: 3 ml Ciprofloxacin (Cipro) 500 mg PO BID [facility] PRN Reason: Protocol Stop: 07/02/18 10:01 Last Admin: 06/29/18 09:20 Dose: 500 mg Diltiazem HCl (Cardizem) 60 mg PO Q6H [facility] Last Admin: 06/29/18 05:41 Dose: 60 mg Folic Acid (Folic Acid) 1 mg PO DAILY [facility] Last Admin: 06/29/18 09:15 Dose: 1 mg Guaifenesin (Robitussin) 200 mg PO Q4H PRN PRN Reason: Cough and congestion Last Admin: 06/24/18 18:07 Dose: 200 mg Haloperidol Lactate (Haldol) 2 mg IVP Q6H PRN PRN Reason: Agitation Last Admin: 06/28/18 18:46 Dose: 2 mg Lactobacillus Acidophilus (Bacid Acidophilus) 1 cap PO BID [facility] Last Admin: 06/28/18 17:26 Dose: 1 cap Levetiracetam (Keppra) 250 mg PO BID [facility] Last Admin: 06/29/18 09:15 Dose: 250 mg Lisinopril (Zestril) 10 mg PO DAILY [facility] Last Admin: 06/29/18 09:19 Dose: 10 mg Lorazepam (Ativan) 2 mg IVP Q6H PRN PRN Reason: Anxiety Methylprednisolone (Solu-Medrol) 20 mg IV Q8H [facility] Last Admin: 06/29/18 09:15 Dose: 20 mg Multivitamins/Vitamin C (Multi-Delyn Liquid) 5 ml PO DAILY [facility] Last Admin: 06/29/18 09:21 Dose: 5 ml Pantoprazole Sodium (Protonix Ec Tab) 40 mg PO Q12 [facility] Last Admin: 06/29/18 09:16 Dose: 40 mg Sucralfate (Carafate Oral Susp) 1 gm PO QID [facility] Last Admin: 06/29/18 09:24 Dose: 1 gm Thiamine HCl (Vitamin B1 Tab) 100 mg PO BID [facility] Last Admin: 06/29/18 09:19 Dose: 100 mg - Labs Labs: 06/27/18 01:05 06/27/18 01:05 PT 13.6 SECONDS (9.7-12.2) H 06/20/18 10:09 INR 1.2 06/20/18 10:09 APTT 40 SECONDS (21-34) H 06/10/18 23:37
[2018-06-29 11:57] LABS: BASO % 0.1 % (0.0-2.0); HEMOGLOBIN 13.1 g/dL (12.0-18.0); LYMPH # 0.5 K/uL (1.0-4.3); LYMPH % 3.2 % (20.0-40.0); MEAN CELL VOLUME 89.2 fL (80.0-94.0); MEAN CORPUSCULAR HEMOGLOBIN 30.2 pg (27.0-31.0); MEAN CORPUSCULAR HGB CONC 33.9 g/dL (33.0-37.0); MEAN PLATELET VOLUME 7.4 fL (7.2-11.7); MONO # 0.5 K/uL (0.0-0.8); MONO % 3.5 % (0.0-10.0); NEUT # 14.2 K/uL (1.8-7.0); NEUT % 93.2 % (50.0-75.0); PLATELET COUNT 243 K/uL (130-400); RBC 4.32 Mil/uL (4.40-5.90); RED CELL DISTRIBUTION WIDTH 19.4 % (11.5-14.5); WHITE BLOOD COUNT 15.2 K/uL (4.8-10.8)
[2018-06-29 12:09] LABS: ALB/GLOB RATIO 1.1 (1.0-2.1); ALT/SGPT 86 U/L (21-72); AST/SGOT 39 U/L (17-59); BLOOD UREA NITROGEN 25 mg/dL (9-20); CALCIUM 8.9 mg/dl (8.6-10.4); GFR NON-AFRICAN AMERICAN > 60
[2018-06-29 12:23] LABS: LYMPHOCYTE 7 % (20-40); MONOCYTE 6 % (0-10); NEUTROPHIL 87 % (50-75); PLATELET ESTIMATE NORMAL (NORMAL); TOTAL CELLS COUNTED 100
[2018-06-29 12:25] LABS: ANISOCYTOSIS SLIGHT; BURR CELLS SLIGHT; POIKILOCYTOSIS SLIGHT
[2018-06-30] MEDS: MethylPREDNISolone 40 mg Vial IV SCH ×3 (00:18→17:47)
[2018-06-30] MEDS: Albuterol-Ipratrop 3 mg / 0.5 (3 ml) UD INH SCH ×5 (00:41→16:59)
--- NOTE | 2018-06-30 08:32 | CP.PCM.PN ---
Subjective - Date & Time of Evaluation Date of Evaluation: 06/30/18 Time of Evaluation: 08:15 - Subjective Subjective: Hospitalist Progress Note Patient was seen at 8:15 AM 06/30/18 Spoke with Nurse Yadira: When she was tending to him this morning he called her a "cunt" He is refusing labs At the time of my attempted exam, he asked me "why are you doing this to my mother" and when I asked him to clarify he would not answer. I asked his permission to examine him and he stated "leave me alone" and then would not answer any ROS questions therefore exam was not performed Spoke with Metal Coater Leonila 06/29/18 and Artist Consultant Monse and expressed to her my concerns about terminal operations manager placement for this patient as in his current state I do not believe that he has the ability to care for himself. She has arranged for [facility] in [place] and we are awaiting insurance authorization and once approved will transfer him there after he completes treatment with Ciprofloxacin (please see Assessment and Plan #8 below) CT Head w/o contrast 06/29/18: stable diffuse cerebral atrophy and limited chronic microangiopathy though somewhat advanced for the patient's stated age of 52 years. NO definite acute intracranial findings. Stable when compared to Assessment/Plan 1). Cardiopulmonary Arrest Assessment/Plan * Cardiology Dr. Iglesias weight loss sales consultant-->help appreciated * PEA s/p ROSC NSR * Echocardiogram (06/12/18): ejection fraction: 45-50%, left ventricular diastolic function is abnormal. left atrium size looks normal right atrium size looks normal. trace to mild tricupsid regurgitaton * Solumedrol 40 mg IV Q8H (since 06/17/18) * EEG (06/15) shows an abnormal awake and drowsy EEG which is very slow, indicating encephalopathy or medication effect. Repeat EEG? * 2). Hyponatremia Assessment/Plan * Nephrology Dr. Shafer on board-->help appreciated * Secondary to Alcohol Abuse * Received 3 NS boluses in ER * Seizure precautions * Normalized 3). Hypokalemia/Hypomagnesemia/Hypophosphotemia Assessment/Plan * Replete as needed 4). Metabolic Acidosis Assessment/Plan * Likely secondary to the Cadriopulmonary Arrest, GI bleed, Respiratory Distress * Resolved 5). Seizure Assessment/Plan * Neurology Dr. Richie Rubi on board-->help appreciated * Risk factor: heavy alcohol use and hyponatremia, hypomagnesium * Head CT (06/11/18): no acute intracranial abnormality. Chronic microvascular ischemic changes. sinus mucosal disease as above * He has a history of alcohol withdrawal seizures * Patient is off Precedex * Keppra 250 mg PO Q12H * Recommend EEG if mental status does not improve after extubation and once off precedex 6). Anemia likely secondary to GI Bleed History of Peptic Ulcer Disease Bleeding Ulcer Assessment/Plan * GI Dr. Ho on consult help appreciated * CT Chest/abdomen/pelvis (06/12/18): distended bowel suggesting an ileus. Markedly limited evaluation of the bowel without oral or intravenous contrast. Suggestion of prior Bilroth 2 procedure. Fluid filled dilatation of small bowel andproximal colon. Fluid filled dilatation of the small bowel and prozimal colon. Fluid in the descending colon without a sharp transition sozne. Portions of transverse colon were not well visualized. * Monitor H/H and transfuse as needed * Carafate 1g qid * S/P EGD POD: 2 anastomotic ulcers with visible vessel s/p APC and 5 clips, one ulcer with visible vessel and adherent clot was not intervened on due to adverse location--->If pt develops further bleeding will need IR and Surgery on board, difficult to treat endoscopically * Monitor H/H: received 2 units on 06/16/18 and is currently stable * Protonix 40mg PO BID * No NSAIDS and strong history of alcohol abuse 7). Hypocalcemia Assessment/Plan * Monitor 8). Acute Respiratory Failure Aspiration Pneumonia Assessment/Plan * CT Chest 06/11/18: thinned walled cavity in the right upper lobe which may be the sequelae of prior infection 5mm subpleural nodule within the anterior right middle lobe. Focal consolidation within the inferior right middle lobe. Focal consolidation within the right lower lobe. Patchy ground glass opacities in both lungs which and nonspecific but may secondary to alectasis versus contusion versus pneumonitis. * Chest xray (06/23/18): small right pleural effusion. left basilar linear scar/ subsegmental atelectasis. no acute infiltrate. * Extubated 06/12/18 and Re-intubated on 06/14/18 and extubated 06/17/18 * Patient has productive cough * Robotussin 200mg POq4H PRN cough and congestion * Chest physiotherapy * Tracheal Aspirate 06/16/18 showed Yeast and was treated with Fluconazole 100 IV and was discontinued once repeat Sputum 06/22/18 showed Klebsiella which is sensitive to Ciprofloxacin * Was treated with Meropenem 1gram IV Q8H and Vancomycin 1 gram IV Q12H and NOW to complete Cipro 500 mg PO 2x/day through 07/02/18 9) Open Wounds on Sacrum Stage II Assessment/Plan * Turn [id number] * MediHoney with Optifoam Dressing * Latest wound care note: (06/22/18) WOUND CARE NOTE-Patient re-assessed; found to have improving MASD, Moisture associated skin damage to sacral/coccyx regions. Skin continues with blanchable erythema; erosions resolving. recommending to continue aloevesta protective ointment to entire sacral/coccyx regions 3x/day and prn for incontinent episodes. Must reposition this patient frequently to optimize offloading. Will continue to follow. 10) Bilateral Anterior Rib and Sternal Fractures Assessment/Plan * Noted on CT Chest * Secondary to CPR given cardiopulmonary arrest 11) Systolic and Diastolic Heart Failure * Echocardiogram 06/12/18 shows EF at 45-50%, left ventricular diastolic function abnormal with Grade I abnormal relaxation pattern, trace to mild ticuspid regurgitation * Lisinopril 10 mg PO 1x/day * Cardizem 60mg PO Q6H * Aspirin contraindication secondary to bleeding ulcer 12) Urinary tract infection-->resolved * Treated with Zosyn 3.375g IV Q8H * Repeat urine culture 06/13/18 showed NO growth 13) Bacteremia-->resolved * Repeat blood culture 06/12/18 is negative at 5 days 14) Alcoholism Alcoholic Liver Disease * Hx heavy use * Off Precedex * Off Librium 25 mg PO Q8H 06/22/18 * MVI PO 1x/day * Thiamine 100mg PO BID * Folic acid 1mg PO daily * MVI 5 ml PO daily * Abdominal US report available in the EMR: limited but liver changes 15) Prophylactic measure * Protonix 40 mg PO Q12H * Lactobacillus 1 cap PO 2x/day * Chemical anticoagulation held secondary to GI bleed * Haldol 2 mg IV Q6H PRN Agitation * Turn [id number] * Aspiration precautions * Seizure precautions * Wound care on board * PT/OT katherin Noland D.O. Objective - Vital Signs/Intake and Output Vital Signs (last 24 hours): Temp Pulse Resp BP Pulse Ox 98.1 F 127 H 31 H 129/82 100 06/30/18 04:00 06/30/18 06:00 06/30/18 06:00 06/30/18 04:18 06/30/18 04:00 Intake and Output: 06/30/18 06/30/18 06:59 18:59 Intake Total 640 Output Total 2100 Balance -1460 - Medications Medications: Current Medications Albuterol/Ipratropium (Duoneb 3 Mg/0.5 Mg (3 Ml) Ud) 3 ml INH RQ4 [facility] Last Admin: 06/30/18 07:51 Dose: Not Given Aripiprazole (Abilify) 5 mg PO HS [facility] Last Admin: 06/29/18 21:49 Dose: 5 mg Ciprofloxacin (Cipro) 500 mg PO BID [facility] PRN Reason: Protocol Stop: 07/02/18 10:01 Last Admin: 06/29/18 09:20 Dose: 500 mg Diltiazem HCl (Cardizem) 60 mg PO Q6H [facility] Last Admin: 06/30/18 05:51 Dose: 60 mg Folic Acid (Folic Acid) 1 mg PO DAILY [facility] Last Admin: 06/29/18 09:15 Dose: 1 mg Guaifenesin (Robitussin) 200 mg PO Q4H PRN PRN Reason: Cough and congestion Last Admin: 06/24/18 18:07 Dose: 200 mg Haloperidol Lactate (Haldol) 2 mg IVP Q6H PRN PRN Reason: Agitation Last Admin: 06/29/18 21:58 Dose: 2 mg Lactobacillus Acidophilus (Bacid Acidophilus) 1 cap PO BID [facility] Last Admin: 06/29/18 19:30 Dose: 1 cap Levetiracetam (Keppra) 250 mg PO BID [facility] Last Admin: 06/29/18 17:25 Dose: 250 mg Lisinopril (Zestril) 10 mg PO DAILY [facility] Last Admin: 06/29/18 09:19 Dose: 10 mg Lorazepam (Ativan) 2 mg IVP Q6H PRN PRN Reason: Anxiety Methylprednisolone (Solu-Medrol) 20 mg IV Q8H [facility] Last Admin: 06/30/18 00:18 Dose: 20 mg Multivitamins/Vitamin C (Multi-Delyn Liquid) 5 ml PO DAILY [facility] Last Admin: 06/29/18 09:21 Dose: 5 ml Pantoprazole Sodium (Protonix Ec Tab) 40 mg PO Q12 [facility] Last Admin: 06/29/18 21:50 Dose: 40 mg Sucralfate (Carafate Oral Susp) 1 gm PO QID [facility] Last Admin: 06/29/18 21:49 Dose: 1 gm Thiamine HCl (Vitamin B1 Tab) 100 mg PO BID [facility] Last Admin: 06/29/18 17:26 Dose: 100 mg - Labs Labs: 06/29/18 11:49 06/29/18 11:49 PT 13.6 SECONDS (9.7-12.2) H 06/20/18 10:09 INR 1.2 06/20/18 10:09 APTT 40 SECONDS (21-34) H 06/10/18 23:37
[2018-06-30] MEDS: Sucralfate 1 gm/10 ml Oral Susp UD PO SCH ×4 (10:18→22:10)
[2018-06-30] MEDS: Lactobacillus Acidophilus 500 MU Cap PO SCH ×2 (10:19→17:47)
[2018-06-30] MEDS: Pantoprazole 40 mg EC Tab PO SCH ×2 (10:19→22:01)
[2018-06-30] MEDS: Multiple Vitamins Oral Solution PO SCH (10:19)
[2018-06-30] MEDS: guaiFENesin 200 mg/10 ml Syrup UD PO PRN (22:01)
[2018-07-01] MEDS: Albuterol-Ipratrop 3 mg / 0.5 (3 ml) UD INH SCH ×7 (00:05→23:42)
[2018-07-01] MEDS: MethylPREDNISolone 40 mg Vial IV SCH ×2 (01:48→09:22)
[2018-07-01 08:30] LABS: BASO % 0.1 % (0.0-2.0); HEMOGLOBIN 13.7 g/dL (12.0-18.0); LYMPH # 0.4 K/uL (1.0-4.3); LYMPH % 2.6 % (20.0-40.0); MEAN CELL VOLUME 87.4 fL (80.0-94.0); MEAN CORPUSCULAR HEMOGLOBIN 30.5 pg (27.0-31.0); MEAN CORPUSCULAR HGB CONC 34.8 g/dL (33.0-37.0); MEAN PLATELET VOLUME 7.7 fL (7.2-11.7); MONO # 0.3 K/uL (0.0-0.8); MONO % 2.1 % (0.0-10.0); NEUT # 15.8 K/uL (1.8-7.0); NEUT % 95.2 % (50.0-75.0); NRBC % 0.1 % (0.0-2.0); PLATELET COUNT 215 K/uL (130-400); RED CELL DISTRIBUTION WIDTH 19.4 % (11.5-14.5); WHITE BLOOD COUNT 16.6 K/uL (4.8-10.8)
[2018-07-01 08:43] LABS: BLOOD UREA NITROGEN 26 mg/dL (9-20); GFR NON-AFRICAN AMERICAN > 60
--- NOTE | 2018-07-01 10:09 | CP.PCM.PN ---
<Thomas Springer - Last Filed: 07/01/18 17:47> Subjective - Date & Time of Evaluation Date of Evaluation: 07/01/18 Time of Evaluation: 10:09 - Subjective Subjective: PGY-[address] Noland Pt seen and examined at bedside. No acute events overnight. Patient tolerating PO meals. Review of systems cannot be accurately obtained due to does not cooperate and answer questions accurately. Patient awaiting insurance approval to go to [facility], her he does have a bed waiting for him at this time. Objective - Vital Signs/Intake and Output Vital Signs (last 24 hours): Temp Pulse Resp BP Pulse Ox 98 F 115 H 20 130/85 100 07/01/18 07:39 07/01/18 07:39 07/01/18 07:39 07/01/18 07:39 07/01/18 07:39 Intake and Output: 07/01/18 07/01/18 06:59 18:59 Intake Total 150 Output Total 450 Balance -300 - Medications Medications: Current Medications Albuterol/Ipratropium (Duoneb 3 Mg/0.5 Mg (3 Ml) Ud) 3 ml INH RQ4 [facility] Last Admin: 07/01/18 07:36 Dose: 3 ml Aripiprazole (Abilify) 5 mg PO HS [facility] Last Admin: 06/30/18 22:01 Dose: 5 mg Ciprofloxacin (Cipro) 500 mg PO BID [facility] PRN Reason: Protocol Stop: 07/02/18 10:01 Last Admin: 06/30/18 17:47 Dose: 500 mg Diltiazem HCl (Cardizem) 60 mg PO Q6H [facility] Last Admin: 07/01/18 05:45 Dose: 60 mg Folic Acid (Folic Acid) 1 mg PO DAILY [facility] Last Admin: 06/30/18 10:19 Dose: 1 mg Guaifenesin (Robitussin) 200 mg PO Q4H PRN PRN Reason: Cough and congestion Last Admin: 06/30/18 22:01 Dose: 200 mg Haloperidol Lactate (Haldol) 2 mg IVP Q6H PRN PRN Reason: Agitation Last Admin: 06/29/18 21:58 Dose: 2 mg Lactobacillus Acidophilus (Bacid Acidophilus) 1 cap PO BID [facility] Last Admin: 06/30/18 17:47 Dose: 1 cap Levetiracetam (Keppra) 250 mg PO BID [facility] Last Admin: 06/30/18 17:50 Dose: 250 mg Lisinopril (Zestril) 10 mg PO DAILY [facility] Last Admin: 06/30/18 10:19 Dose: 10 mg Lorazepam (Ativan) 2 mg IVP Q6H PRN PRN Reason: Anxiety Last Admin: 07/01/18 01:48 Dose: 2 mg Methylprednisolone (Solu-Medrol) 20 mg IV Q8H [facility] Last Admin: 07/01/18 01:48 Dose: 20 mg Multivitamins/Vitamin C (Multi-Delyn Liquid) 5 ml PO DAILY [facility] Last Admin: 06/30/18 10:19 Dose: 5 ml Pantoprazole Sodium (Protonix Ec Tab) 40 mg PO Q12 [facility] Last Admin: 06/30/18 22:01 Dose: 40 mg Sucralfate (Carafate Oral Susp) 1 gm PO QID [facility] Last Admin: 06/30/18 22:10 Dose: 1 gm Thiamine HCl (Vitamin B1 Tab) 100 mg PO BID [facility] Last Admin: 06/30/18 17:47 Dose: 100 mg - Labs Labs: 07/01/18 08:19 07/01/18 08:19 PT 13.6 SECONDS (9.7-12.2) H 06/20/18 10:09 INR 1.2 06/20/18 10:09 APTT 40 SECONDS (21-34) H 06/10/18 23:37 - Head Exam Head Exam: ATRAUMATIC, NORMAL INSPECTION - Eye Exam Eye Exam: EOMI, Normal appearance - ENT Exam ENT Exam: Mucous Membranes Moist, Normal Exam - Respiratory Exam Respiratory Exam: Clear to Ausculation Bilateral, NORMAL BREATHING PATTERN - Cardiovascular Exam Cardiovascular Exam: REGULAR RHYTHM, +S1, +S2 - GI/Abdominal Exam GI & Abdominal Exam: Soft, Normal Bowel Sounds. absent: Tenderness - Extremities Exam Extremities Exam: Normal Capillary Refill. absent: Pedal Edema, Tenderness - Neurological Exam Neurological Exam: Altered, Awake, CN II-XII Intact. absent: Oriented x3 - Skin Skin Exam: Dry, Intact, Normal Color, Warm Assessment and Plan - Assessment and Plan (Free Text) Assessment: Assessment/Plan 1). 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 left atrium size looks normal right atrium size looks normal. trace to mild tricupsid regurgitaton * Solumedrol 40 mg IV Q8H (since 06/17/18) * EEG (06/15) shows an abnormal awake and drowsy EEG which is very slow, indicating encephalopathy or medication effect. Repeat EEG? * 2). Hyponatremia Assessment/Plan * Nephrology Dr. Shafer on board-->help appreciated * Secondary to Alcohol Abuse * Received 3 NS boluses in ER * Seizure precautions * Normalized 3). Hypokalemia/Hypomagnesemia/Hypophosphotemia Assessment/Plan * Replete as needed 4). Metabolic Acidosis Assessment/Plan * Likely secondary to the Cadriopulmonary Arrest, GI bleed, Respiratory Distress * Resolved 5). Seizure Assessment/Plan * Neurology Dr. Richie Rubi on board-->help appreciated * Risk factor: heavy alcohol use and hyponatremia, hypomagnesium * Head CT (06/11/18): no acute intracranial abnormality. Chronic microvascular ischemic changes. sinus mucosal disease as above * He has a history of alcohol withdrawal seizures * Patient is off Precedex * Keppra 250 mg PO Q12H * Recommend EEG if mental status does not improve after extubation and once off precedex 6). Anemia likely secondary to GI Bleed History of Peptic Ulcer Disease Bleeding Ulcer Assessment/Plan * GI Dr. Ho on consult help appreciated * CT Chest/abdomen/pelvis (06/12/18): distended bowel suggesting an ileus. Markedly limited evaluation of the bowel without oral or intravenous contrast. Suggestion of prior Bilroth 2 procedure. Fluid filled dilatation of small bowel andproximal colon. Fluid filled dilatation of the small bowel and prozimal colon. Fluid in the descending colon without a sharp transition sozne. Portions of transverse colon were not well visualized. * Monitor H/H and transfuse as needed * Carafate 1g qid * S/P EGD POD: 2 anastomotic ulcers with visible vessel s/p APC and 5 clips, one ulcer with visible vessel and adherent clot was not intervened on due to adverse location--->If pt develops further bleeding will need IR and Surgery on board, difficult to treat endoscopically * Monitor H/H: received 2 units on 06/16/18 and is currently stable * Protonix 40mg PO BID * No NSAIDS and strong history of alcohol abuse 7). Hypocalcemia Assessment/Plan * Monitor 8). Acute Respiratory Failure Aspiration Pneumonia Assessment/Plan * CT Chest 06/11/18: thinned walled cavity in the right upper lobe which may be the sequelae of prior infection 5mm subpleural nodule within the anterior right middle lobe. Focal consolidation within the inferior right middle lobe. Focal consolidation within the right lower lobe. Patchy ground glass opacities in both lungs which and nonspecific but may secondary to alectasis versus contusion versus pneumonitis. * Chest xray (06/23/18): small right pleural effusion. left basilar linear scar/ subsegmental atelectasis. no acute infiltrate. * Extubated 06/12/18 and Re-intubated on 06/14/18 and extubated 06/17/18 * Patient has productive cough * Robotussin 200mg POq4H PRN cough and congestion * Chest physiotherapy * Tracheal Aspirate 06/16/18 showed Yeast and was treated with Fluconazole 100 IV and was discontinued once repeat Sputum 06/22/18 showed Klebsiella which is sensitive to Ciprofloxacin * Was treated with Meropenem 1gram IV Q8H and Vancomycin 1 gram IV Q12H and NOW to complete Cipro 500 mg PO 2x/day through 07/02/18 * Salumedrol d/c'd due to increasing WBC count. Pt remains afebrile. Prednisone taper started today at 50mg PO, to decrease by 10mg each day until finished. 9) Open Wounds on Sacrum Stage II Assessment/Plan * Turn [id number] * MediHoney with Optifoam Dressing * Latest wound care note: (06/22/18) WOUND CARE NOTE-Patient re-assessed; found to have improving MASD, Moisture associated skin damage to sacral/coccyx regions. Skin continues with blanchable erythema; erosions resolving. recommending to continue aloevesta protective ointment to entire sacral/coccyx regions 3x/day and prn for incontinent episodes. Must reposition this patient frequently to optimize offloading. Will continue to follow. 10) Bilateral Anterior Rib and Sternal Fractures Assessment/Plan * Noted on CT Chest * Secondary to CPR given cardiopulmonary arrest 11) Systolic and Diastolic Heart Failure * Echocardiogram 06/12/18 shows EF at 45-50%, left ventricular diastolic function abnormal with Grade I abnormal relaxation pattern, trace to mild ticuspid regurgitation * Lisinopril 10 mg PO 1x/day * Cardizem 60mg PO Q6H * Aspirin contraindication secondary to bleeding ulcer 12) Urinary tract infection-->resolved * Treated with Zosyn 3.375g IV Q8H * Repeat urine culture 06/13/18 showed NO growth 13) Bacteremia-->resolved * Repeat blood culture 06/12/18 is negative at 5 days 14) Alcoholism Alcoholic Liver Disease * Hx heavy use * Off Precedex * Off Librium 25 mg PO Q8H 06/22/18 * MVI PO 1x/day * Thiamine 100mg PO BID * Folic acid 1mg PO daily * MVI 5 ml PO daily * Abdominal US report available in the EMR: limited but liver changes 15) Prophylactic measure * Protonix 40 mg PO Q12H * Lactobacillus 1 cap PO 2x/day * Chemical anticoagulation held secondary to GI bleed * Haldol 2 mg IV Q6H PRN Agitation * Turn [id number] * Aspiration precautions * Seizure precautions * Wound care on board * PT/OT eval <Prem Noland - Last Filed: 07/02/18 18:59> Objective - Vital Signs/Intake and Output Vital Signs (last 24 hours): Temp Pulse Resp BP Pulse Ox 98.1 F 104 H 20 149/75 98 07/02/18 08:00 07/02/18 08:00 07/02/18 08:00 07/02/18 08:00 07/02/18 08:00 Intake and Output: 07/02/18 07/02/18 06:59 18:59 Intake Total 500 Output Total 800 200 Balance -800 300 - Medications Medications: Current Medications Albuterol/Ipratropium (Duoneb 3 Mg/0.5 Mg (3 Ml) Ud) 3 ml INH RQ4 [facility] Last Admin: 07/02/18 16:52 Dose: Not Given Aripiprazole (Abilify) 5 mg PO HS [facility] Last Admin: 07/01/18 21:37 Dose: 5 mg Diltiazem HCl (Cardizem) 60 mg PO Q6H [facility] Last Admin: 07/02/18 17:33 Dose: 60 mg Folic Acid (Folic Acid) 1 mg PO DAILY [facility] Last Admin: 07/02/18 10:32 Dose: 1 mg Guaifenesin (Robitussin) 200 mg PO Q4H PRN PRN Reason: Cough and congestion Last Admin: 06/30/18 22:01 Dose: 200 mg Haloperidol Lactate (Haldol) 2 mg IVP Q6H PRN PRN Reason: Agitation Last Admin: 06/29/18 21:58 Dose: 2 mg Lactobacillus Acidophilus (Bacid Acidophilus) 1 cap PO BID [facility] Last Admin: 07/02/18 17:33 Dose: 1 cap Levetiracetam (Keppra) 250 mg PO BID [facility] Last Admin: 07/02/18 17:33 Dose: 250 mg Lisinopril (Zestril) 10 mg PO DAILY [facility] Last Admin: 07/02/18 10:32 Dose: 10 mg Lorazepam (Ativan) 2 mg IVP Q6H PRN PRN Reason: Anxiety Last Admin: 07/02/18 07:37 Dose: 2 mg Multivitamins/Vitamin C (Multi-Delyn Liquid) 5 ml PO DAILY [facility] Last Admin: 07/02/18 10:33 Dose: Not Given Mupirocin (Bactroban 2% Nasal) 0.25 gm KAYA BID [facility] Last Admin: 07/02/18 10:33 Dose: 0.25 gm Pantoprazole Sodium (Protonix Ec Tab) 40 mg PO Q12 [facility] Last Admin: 07/02/18 10:32 Dose: 40 mg Prednisone (Prednisone Tab) 40 mg PO ONCE ONE Stop: 07/03/18 10:01 Prednisone (Prednisone Tab) 30 mg PO ONCE ONE Stop: 07/04/18 10:01 Prednisone (Prednisone Tab) 20 mg PO ONCE ONE Stop: 07/05/18 10:01 Prednisone (Prednisone Tab) 10 mg PO ONCE ONE Stop: 07/06/18 10:01 Sucralfate (Carafate Oral Susp) 1 gm PO QID [facility] Last Admin: 07/02/18 17:33 Dose: 1 gm Thiamine HCl (Vitamin B1 Tab) 100 mg PO BID [facility] Last Admin: 07/02/18 17:33 Dose: 100 mg - Labs Labs: 07/02/18 07:39 07/02/18 07:39 PT 13.6 SECONDS (9.7-12.2) H 06/20/18 10:09 INR 1.2 06/20/18 10:09 APTT 40 SECONDS (21-34) H 06/10/18 23:37 Attending/Attestation - Attestation I have personally seen and examined this patient.: Yes I have fully participated in the care of the patient.: Yes I have reviewed all pertinent clinical information, including history, physical exam and plan: Yes Notes (Text): 07/02/18 18:59 This is late entry. Care of this patient was gone over in detail with resident Dr. Springer during rounds. Prem Noland D.O.
[2018-07-01 10:23] LABS: ANISOCYTOSIS MODERATE; BANDS 2 % (0-2); LYMPHOCYTE 2 % (20-40); MONOCYTE 2 % (0-10); NEUTROPHIL 94 % (50-75); PLATELET ESTIMATE NORMAL (NORMAL); POIKILOCYTOSIS SLIGHT; TOTAL CELLS COUNTED 100
[2018-07-01 10:24] LABS: BURR CELLS MODERATE; OVALOCYTES SLIGHT
[2018-07-01] MEDS: Sucralfate 1 gm/10 ml Oral Susp UD PO SCH ×4 (10:33→21:37)
[2018-07-01] MEDS: Multiple Vitamins Oral Solution PO SCH (10:33)
[2018-07-01] MEDS: Lactobacillus Acidophilus 500 MU Cap PO SCH ×2 (10:33→18:40)
[2018-07-01] MEDS: Pantoprazole 40 mg EC Tab PO SCH ×2 (10:35→21:37)
--- NOTE | 2018-07-02 01:15 | CP.PCM.PN ---
Addendum entered and electronically signed by Lorenzo Hirsch DO 07/02/18 10:23: Disposition: Pending authorization. Possible D/C to [facility] 07/04. Original Note: <Ricardo Torres M - Last Filed: 07/02/18 07:00> Subjective - Date & Time of Evaluation Date of Evaluation: 07/02/18 Time of Evaluation: 01:40 - Subjective Subjective: PGY-[address] Noland Pt seen and examined at bedside. No acute events overnight. Patient tolerating PO meals. Unable to obtain ROS accurately due to does not cooperate and answer questions accurately. Patient awaiting insurance approval to go to [facility], he does have a bed waiting for him at this time. Objective - Vital Signs/Intake and Output Vital Signs (last 24 hours): Temp Pulse Resp BP Pulse Ox 97.4 F L 108 H 20 110/72 100 07/01/18 23:30 07/01/18 23:30 07/01/18 23:30 07/01/18 23:30 07/01/18 23:30 Intake and Output: 07/01/18 07/02/18 18:59 06:59 Output Total 400 Balance -400 - Medications Medications: Current Medications Albuterol/Ipratropium (Duoneb 3 Mg/0.5 Mg (3 Ml) Ud) 3 ml INH RQ4 [facility] Last Admin: 07/01/18 23:42 Dose: Not Given Aripiprazole (Abilify) 5 mg PO HS [facility] Last Admin: 07/01/18 21:37 Dose: 5 mg Ciprofloxacin (Cipro) 500 mg PO BID [facility] PRN Reason: Protocol Stop: 07/02/18 10:01 Last Admin: 07/01/18 18:40 Dose: 500 mg Diltiazem HCl (Cardizem) 60 mg PO Q6H [facility] Last Admin: 07/01/18 22:30 Dose: 60 mg Folic Acid (Folic Acid) 1 mg PO DAILY [facility] Last Admin: 07/01/18 11:15 Dose: 1 mg Guaifenesin (Robitussin) 200 mg PO Q4H PRN PRN Reason: Cough and congestion Last Admin: 06/30/18 22:01 Dose: 200 mg Haloperidol Lactate (Haldol) 2 mg IVP Q6H PRN PRN Reason: Agitation Last Admin: 06/29/18 21:58 Dose: 2 mg Lactobacillus Acidophilus (Bacid Acidophilus) 1 cap PO BID [facility] Last Admin: 07/01/18 18:40 Dose: 1 cap Levetiracetam (Keppra) 250 mg PO BID [facility] Last Admin: 07/01/18 18:41 Dose: 250 mg Lisinopril (Zestril) 10 mg PO DAILY [facility] Last Admin: 07/01/18 10:35 Dose: 10 mg Lorazepam (Ativan) 2 mg IVP Q6H PRN PRN Reason: Anxiety Last Admin: 07/01/18 01:48 Dose: 2 mg Multivitamins/Vitamin C (Multi-Delyn Liquid) 5 ml PO DAILY [facility] Last Admin: 07/01/18 10:33 Dose: 5 ml Mupirocin (Bactroban 2% Nasal) 0.25 gm KAYA BID [facility] Pantoprazole Sodium (Protonix Ec Tab) 40 mg PO Q12 [facility] Last Admin: 07/01/18 21:37 Dose: 40 mg Prednisone (Prednisone Tab) 50 mg PO ONCE ONE Stop: 07/02/18 10:01 Prednisone (Prednisone Tab) 40 mg PO ONCE ONE Stop: 07/03/18 10:01 Prednisone (Prednisone Tab) 30 mg PO ONCE ONE Stop: 07/04/18 10:01 Prednisone (Prednisone Tab) 20 mg PO ONCE ONE Stop: 07/05/18 10:01 Prednisone (Prednisone Tab) 10 mg PO ONCE ONE Stop: 07/06/18 10:01 Sucralfate (Carafate Oral Susp) 1 gm PO QID [facility] Last Admin: 07/01/18 21:37 Dose: 1 gm Thiamine HCl (Vitamin B1 Tab) 100 mg PO BID [facility] Last Admin: 07/01/18 18:40 Dose: 100 mg - Labs Labs: 07/01/18 08:19 07/01/18 08:19 PT 13.6 SECONDS (9.7-12.2) H 06/20/18 10:09 INR 1.2 06/20/18 10:09 APTT 40 SECONDS (21-34) H 06/10/18 23:37 - Constitutional Appears: Non-toxic, No Acute Distress - Head Exam Head Exam: ATRAUMATIC, NORMAL INSPECTION, NORMOCEPHALIC - Eye Exam Eye Exam: EOMI, Normal appearance - ENT Exam ENT Exam: Mucous Membranes Moist - Neck Exam Neck Exam: Normal Inspection - Respiratory Exam Respiratory Exam: Clear to Ausculation Bilateral, NORMAL BREATHING PATTERN. absent: Rales, Rhonchi, Wheezes - Cardiovascular Exam Cardiovascular Exam: +S1, +S2. absent: Murmur - GI/Abdominal Exam GI & Abdominal Exam: Soft, Normal Bowel Sounds - Extremities Exam Extremities Exam: Full ROM, Normal Inspection. absent: Calf Tenderness, Pedal Edema - Neurological Exam Neurological Exam: Alert, Awake, Oriented x3 - Psychiatric Exam Psychiatric exam: Normal Affect, Normal Mood - Skin Skin Exam: Dry, Intact, Normal Color, Warm Assessment and Plan - Assessment and Plan (Free Text) Assessment: 1). Cardiopulmonary Arrest Assessment/Plan * Cardiology Dr. Iglesias director consumer affairs-->help appreciated * PEA s/p ROSC NSR * Echocardiogram (06/12/18): ejection fraction: 45-50%, left ventricular diastolic function is abnormal. left atrium size looks normal right atrium size looks normal. trace to mild tricupsid regurgitaton * Solumedrol 40 mg IV Q8H (since 06/17/18) * EEG (06/15) shows an abnormal awake and drowsy EEG which is very slow, indicating encephalopathy or medication effect. Repeat EEG? * 2). Hyponatremia Assessment/Plan * Nephrology Dr. Shafer on board-->help appreciated * Secondary to Alcohol Abuse * Received 3 NS boluses in ER * Seizure precautions * Normalized 3). Hypokalemia/Hypomagnesemia/Hypophosphotemia Assessment/Plan * Replete as needed 4). Metabolic Acidosis Assessment/Plan * Likely secondary to the Cadriopulmonary Arrest, GI bleed, Respiratory Distress * Resolved 5). Seizure Assessment/Plan * Neurology Dr. Richie Rubi on board-->help appreciated * Risk factor: heavy alcohol use and hyponatremia, hypomagnesium * Head CT (06/11/18): no acute intracranial abnormality. Chronic microvascular ischemic changes. sinus mucosal disease as above * He has a history of alcohol withdrawal seizures * Patient is off Precedex * Keppra 250 mg PO Q12H * Recommend EEG if mental status does not improve after extubation and once off precedex 6). Anemia likely secondary to GI Bleed History of Peptic Ulcer Disease Bleeding Ulcer Assessment/Plan * GI Dr. Ho on consult help appreciated * CT Chest/abdomen/pelvis (06/12/18): distended bowel suggesting an ileus. Markedly limited evaluation of the bowel without oral or intravenous contrast. Suggestion of prior Bilroth 2 procedure. Fluid filled dilatation of small bowel andproximal colon. Fluid filled dilatation of the small bowel and prozimal colon. Fluid in the descending colon without a sharp transition sozne. Portions of transverse colon were not well visualized. * Monitor H/H and transfuse as needed * Carafate 1g qid * S/P EGD POD: 2 anastomotic ulcers with visible vessel s/p APC and 5 clips, one ulcer with visible vessel and adherent clot was not intervened on due to adverse location--->If pt develops further bleeding will need IR and Surgery on board, difficult to treat endoscopically * Monitor H/H: received 2 units on 06/16/18 and is currently stable * Protonix 40mg PO BID * No NSAIDS and strong history of alcohol abuse 7). Hypocalcemia Assessment/Plan * Monitor 8). Acute Respiratory Failure Aspiration Pneumonia Assessment/Plan * CT Chest 06/11/18: thinned walled cavity in the right upper lobe which may be the sequelae of prior infection 5mm subpleural nodule within the anterior right middle lobe. Focal consolidation within the inferior right middle lobe. Focal consolidation within the right lower lobe. Patchy ground glass opacities in both lungs which and nonspecific but may secondary to alectasis versus contusion versus pneumonitis. * Chest xray (06/23/18): small right pleural effusion. left basilar linear scar/ subsegmental atelectasis. no acute infiltrate. * Extubated 06/12/18 and Re-intubated on 06/14/18 and extubated 06/17/18 * Patient has productive cough * Robotussin 200mg POq4H PRN cough and congestion * Chest physiotherapy * Tracheal Aspirate 06/16/18 showed Yeast and was treated with Fluconazole 100 IV and was discontinued once repeat Sputum 06/22/18 showed Klebsiella which is sensitive to Ciprofloxacin * Was treated with Meropenem 1gram IV Q8H and Vancomycin 1 gram IV Q12H and NOW to complete Cipro 500 mg PO 2x/day through 07/02/18 * Salumedrol d/c'd due to increasing WBC count. Pt remains afebrile. Prednisone taper started today at 50mg PO, to decrease by 10mg each day until finished. 9) Open Wounds on Sacrum Stage II Assessment/Plan * Turn [id number] * MediHoney with Optifoam Dressing * Latest wound care note: (06/22/18) WOUND CARE NOTE-Patient re-assessed; found to have improving MASD, Moisture associated skin damage to sacral/coccyx regions. Skin continues with blanchable erythema; erosions resolving. recommending to continue aloevesta protective ointment to entire sacral/coccyx regions 3x/day and prn for incontinent episodes. Must reposition this patient frequently to optimize offloading. Will continue to follow. 10) Bilateral Anterior Rib and Sternal Fractures Assessment/Plan * Noted on CT Chest * Secondary to CPR given cardiopulmonary arrest 11) Systolic and Diastolic Heart Failure * Echocardiogram 06/12/18 shows EF at 45-50%, left ventricular diastolic function abnormal with Grade I abnormal relaxation pattern, trace to mild ticuspid regurgitation * Lisinopril 10 mg PO 1x/day * Cardizem 60mg PO Q6H * Aspirin contraindication secondary to bleeding ulcer 12) Urinary tract infection-->resolved * Treated with Zosyn 3.375g IV Q8H * Repeat urine culture 06/13/18 showed NO growth 13) Bacteremia-->resolved * Repeat blood culture 06/12/18 is negative at 5 days 14) Alcoholism Alcoholic Liver Disease * Hx heavy use * Off Precedex * Off Librium 25 mg PO Q8H 06/22/18 * MVI PO 1x/day * Thiamine 100mg PO BID * Folic acid 1mg PO daily * MVI 5 ml PO daily * Abdominal US report available in the EMR: limited but liver changes 15) Prophylactic measure * Protonix 40 mg PO Q12H * Lactobacillus 1 cap PO 2x/day * Chemical anticoagulation held secondary to GI bleed * Haldol 2 mg IV Q6H PRN Agitation * Turn [id number] * Aspiration precautions * Seizure precautions * Wound care on board * PT/OT katherin Castañeda D/w Dr. Ludin Torres PGY1 <Prem Noland - Last Filed: 07/02/18 19:06> Objective - Vital Signs/Intake and Output Vital Signs (last 24 hours): Temp Pulse Resp BP Pulse Ox 98.1 F 104 H 20 149/75 98 07/02/18 08:00 07/02/18 08:00 07/02/18 08:00 07/02/18 08:00 07/02/18 08:00 Intake and Output: 07/02/18 07/02/18 06:59 18:59 Intake Total 500 Output Total 800 200 Balance -800 300 - Medications Medications: Current Medications Albuterol/Ipratropium (Duoneb 3 Mg/0.5 Mg (3 Ml) Ud) 3 ml INH RQ4 [facility] Last Admin: 07/02/18 16:52 Dose: Not Given Aripiprazole (Abilify) 5 mg PO HS [facility] Last Admin: 07/01/18 21:37 Dose: 5 mg Diltiazem HCl (Cardizem) 60 mg PO Q6H [facility] Last Admin: 07/02/18 17:33 Dose: 60 mg Folic Acid (Folic Acid) 1 mg PO DAILY [facility] Last Admin: 07/02/18 10:32 Dose: 1 mg Guaifenesin (Robitussin) 200 mg PO Q4H PRN PRN Reason: Cough and congestion Last Admin: 06/30/18 22:01 Dose: 200 mg Haloperidol Lactate (Haldol) 2 mg IVP Q6H PRN PRN Reason: Agitation Last Admin: 06/29/18 21:58 Dose: 2 mg Lactobacillus Acidophilus (Bacid Acidophilus) 1 cap PO BID [facility] Last Admin: 07/02/18 17:33 Dose: 1 cap Levetiracetam (Keppra) 250 mg PO BID [facility] Last Admin: 07/02/18 17:33 Dose: 250 mg Lisinopril (Zestril) 10 mg PO DAILY [facility] Last Admin: 07/02/18 10:32 Dose: 10 mg Lorazepam (Ativan) 2 mg IVP Q6H PRN PRN Reason: Anxiety Last Admin: 07/02/18 07:37 Dose: 2 mg Multivitamins/Vitamin C (Multi-Delyn Liquid) 5 ml PO DAILY [facility] Last Admin: 07/02/18 10:33 Dose: Not Given Mupirocin (Bactroban 2% Nasal) 0.25 gm KAYA BID [facility] Last Admin: 07/02/18 10:33 Dose: 0.25 gm Pantoprazole Sodium (Protonix Ec Tab) 40 mg PO Q12 [facility] Last Admin: 07/02/18 10:32 Dose: 40 mg Prednisone (Prednisone Tab) 40 mg PO ONCE ONE Stop: 07/03/18 10:01 Prednisone (Prednisone Tab) 30 mg PO ONCE ONE Stop: 07/04/18 10:01 Prednisone (Prednisone Tab) 20 mg PO ONCE ONE Stop: 07/05/18 10:01 Prednisone (Prednisone Tab) 10 mg PO ONCE ONE Stop: 07/06/18 10:01 Sucralfate (Carafate Oral Susp) 1 gm PO QID [facility] Last Admin: 07/02/18 17:33 Dose: 1 gm Thiamine HCl (Vitamin B1 Tab) 100 mg PO BID [facility] Last Admin: 07/02/18 17:33 Dose: 100 mg - Labs Labs: 07/02/18 07:39 07/02/18 07:39 PT 13.6 SECONDS (9.7-12.2) H 06/20/18 10:09 INR 1.2 06/20/18 10:09 APTT 40 SECONDS (21-34) H 06/10/18 23:37 Attending/Attestation - Attestation I have personally seen and examined this patient.: Yes I have fully participated in the care of the patient.: Yes I have reviewed all pertinent clinical information, including history, physical exam and plan: Yes Notes (Text): 07/02/18 18:59 Hospitalist Progress Note Patient was seen and examined at 12:15 PM 07/02/18 Spoke with patient's Sister Jenifer ([phone]) who was at bedside and went over patient's diagnosises. 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 Newest story is that he relayed that there was a burgarly in his room last night. He is pending for [facility] at [facility]: resting comfortably at the time of my exam and cooperative with exam. Continues to call me "The Fucker" HEENT: NCA, PERRLA, EOMI, NO lymphadenopathy, NO thyromegaly, NO pharyngeal erythema/exudate Cardio: heart sounds are very faint however this exam is limited (NS1 and NS2, NO M/R/G) Respiratory: Course breath sounds diffusely GI: BSx4, Soft, NO HSM, NO guarding/rebound tenderness, ND, NT Ext: Radial pulses are strong and equal, Pedal pulses are weak, NO edema, Capillary Refill is 3 seconds, Bilateral lower legs with multiple round dry eschars Skin: Stage II Sacral Ulcer without any surrounding signs of cellulitis Assessment/Plan 1). Cardiopulmonary Arrest Assessment/Plan * Cardiology Dr. Iglesias director consumer affairs-->help appreciated * PEA s/p ROSC NSR * Echocardiogram (06/12/18): ejection fraction: 45-50%, left ventricular diastolic function is abnormal. left atrium size looks normal right atrium size looks normal. trace to mild tricupsid regurgitaton * Solumedrol 40 mg IV Q8H (since 06/17/18) * EEG (06/15) shows an abnormal awake and drowsy EEG which is very slow, indicating encephalopathy or medication effect. Repeat EEG? * 2). Hyponatremia Assessment/Plan * Nephrology Dr. Shafer on board-->help appreciated * Secondary to Alcohol Abuse * Received 3 NS boluses in ER * Seizure precautions * Normalized 3). Hypokalemia/Hypomagnesemia/Hypophosphotemia Assessment/Plan * Replete as needed 4). Metabolic Acidosis Assessment/Plan * Likely secondary to the Cadriopulmonary Arrest, GI bleed, Respiratory Distress * Resolved 5). Seizure Assessment/Plan * Neurology Dr. Richie Rubi on board-->help appreciated * Risk factor: heavy alcohol use and hyponatremia, hypomagnesium * Head CT (06/11/18): no acute intracranial abnormality. Chronic microvascular ischemic changes. sinus mucosal disease as above * He has a history of alcohol withdrawal seizures * Patient is off Precedex * Keppra 250 mg PO Q12H * Recommend EEG if mental status does not improve after extubation and once off precedex 6). Anemia likely secondary to GI Bleed History of Peptic Ulcer Disease Bleeding Ulcer Assessment/Plan * GI Dr. Ho on consult help appreciated * CT Chest/abdomen/pelvis (06/12/18): distended bowel suggesting an ileus. Markedly limited evaluation of the bowel without oral or intravenous contrast. Suggestion of prior Bilroth 2 procedure. Fluid filled dilatation of small bowel andproximal colon. Fluid filled dilatation of the small bowel and prozimal colon. Fluid in the descending colon without a sharp transition sozne. Portions of transverse colon were not well visualized. * Monitor H/H and transfuse as needed * Carafate 1g qid * S/P EGD POD: 2 anastomotic ulcers with visible vessel s/p APC and 5 clips, one ulcer with visible vessel and adherent clot was not intervened on due to adverse location--->If pt develops further bleeding will need IR and Surgery on board, difficult to treat endoscopically * Monitor H/H: received 2 units on 06/16/18 and is currently stable * Protonix 40mg PO BID * No NSAIDS and strong history of alcohol abuse 7). Hypocalcemia Assessment/Plan * Monitor 8). Acute Respiratory Failure Aspiration Pneumonia Assessment/Plan * CT Chest 06/11/18: thinned walled cavity in the right upper lobe which may be the sequelae of prior infection 5mm subpleural nodule within the anterior right middle lobe. Focal consolidation within the inferior right middle lobe. Focal consolidation within the right lower lobe. Patchy ground glass opacities in both lungs which and nonspecific but may secondary to alectasis versus contusion versus pneumonitis. * Chest xray (06/23/18): small right pleural effusion. left basilar linear scar/ subsegmental atelectasis. no acute infiltrate. * Extubated 06/12/18 and Re-intubated on 06/14/18 and extubated 06/17/18 * Patient has productive cough * Robotussin 200mg POq4H PRN cough and congestion * Chest physiotherapy * Tracheal Aspirate 06/16/18 showed Yeast and was treated with Fluconazole 100 IV and was discontinued once repeat Sputum 06/22/18 showed Klebsiella which is sensitive to Ciprofloxacin * Was treated with Meropenem 1gram IV Q8H and Vancomycin 1 gram IV Q12H and NOW to complete Cipro 500 mg PO 2x/day through 07/02/18 9) Open Wounds on Sacrum Stage II Assessment/Plan * Turn [id number] * MediHoney with Optifoam Dressing * Latest wound care note: (06/22/18) WOUND CARE NOTE-Patient re-assessed; found to have improving MASD, Moisture associated skin damage to sacral/coccyx regions. Skin continues with blanchable erythema; erosions resolving. recommending to continue aloevesta protective ointment to entire sacral/coccyx regions 3x/day and prn for incontinent episodes. Must reposition this patient frequently to optimize offloading. Will continue to follow. 10) Bilateral Anterior Rib and Sternal Fractures Assessment/Plan * Noted on CT Chest * Secondary to CPR given cardiopulmonary arrest 11) Systolic and Diastolic Heart Failure * Echocardiogram 06/12/18 shows EF at 45-50%, left ventricular diastolic function abnormal with Grade I abnormal relaxation pattern, trace to mild ticuspid regurgitation * Lisinopril 10 mg PO 1x/day * Cardizem 60mg PO Q6H * Aspirin contraindication secondary to bleeding ulcer 12) Urinary tract infection-->resolved * Treated with Zosyn 3.375g IV Q8H * Repeat urine culture 06/13/18 showed NO growth 13) Bacteremia-->resolved * Repeat blood culture 06/12/18 is negative at 5 days 14) 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
[2018-07-02] MEDS: Albuterol-Ipratrop 3 mg / 0.5 (3 ml) UD INH SCH ×5 (03:07→19:01)
[2018-07-02 08:05] LABS: BASO % 0.3 % (0.0-2.0); EOS % 0.1 % (0.0-4.0); HEMOGLOBIN 14.2 g/dL (12.0-18.0); LYMPH # 1.6 K/uL (1.0-4.3); LYMPH % 9.4 % (20.0-40.0); MEAN CELL VOLUME 87.7 fL (80.0-94.0); MEAN CORPUSCULAR HEMOGLOBIN 30.3 pg (27.0-31.0); MEAN CORPUSCULAR HGB CONC 34.5 g/dL (33.0-37.0); MEAN PLATELET VOLUME 7.7 fL (7.2-11.7); MONO # 0.9 K/uL (0.0-0.8); MONO % 5.2 % (0.0-10.0); NEUT # 14.1 K/uL (1.8-7.0); PLATELET COUNT 206 K/uL (130-400); RBC 4.69 Mil/uL (4.40-5.90); WHITE BLOOD COUNT 16.6 K/uL (4.8-10.8)
[2018-07-02 08:13] LABS: BLOOD UREA NITROGEN 26 mg/dL (9-20); CALCIUM 8.9 mg/dl (8.6-10.4); GFR NON-AFRICAN AMERICAN > 60
[2018-07-02] MEDS: Lactobacillus Acidophilus 500 MU Cap PO SCH ×2 (10:32→17:33)
[2018-07-02] MEDS: Sucralfate 1 gm/10 ml Oral Susp UD PO SCH ×4 (10:32→22:32)
[2018-07-02] MEDS: Pantoprazole 40 mg EC Tab PO SCH ×2 (10:32→22:32)
[2018-07-02] MEDS: Mupirocin 2% Ointment (NASAL) NAS SCH ×2 (10:33→22:32)
[2018-07-02] MEDS: Multiple Vitamins Oral Solution PO SCH (10:33)
[2018-07-02 11:40] LABS: LYMPHOCYTE 9 % (20-40); MONOCYTE 8 % (0-10); NEUTROPHIL 83 % (50-75); TOTAL CELLS COUNTED 100
[2018-07-02 11:41] LABS: ANISOCYTOSIS MODERATE; HYPOCHROMIC SLIGHT; PLATELET ESTIMATE NORMAL (NORMAL); POIKILOCYTOSIS SLIGHT; POLYCHROMIC SLIGHT
[2018-07-02 11:42] LABS: BURR CELLS SLIGHT; OVALOCYTES SLIGHT; SCHISTOCYTES SLIGHT
[2018-07-03] MEDS: Albuterol-Ipratrop 3 mg / 0.5 (3 ml) UD INH SCH ×6 (00:05→20:19)
[2018-07-03 08:00] LABS: BASO % 0.2 % (0.0-2.0); EOS % 0.3 % (0.0-4.0); HEMOGLOBIN 12.9 g/dL (12.0-18.0); LYMPH % 13.8 % (20.0-40.0); MEAN CELL VOLUME 86.5 fL (80.0-94.0); MEAN CORPUSCULAR HEMOGLOBIN 30.3 pg (27.0-31.0); MEAN PLATELET VOLUME 7.9 fL (7.2-11.7); MONO # 0.7 K/uL (0.0-0.8); MONO % 4.9 % (0.0-10.0); NEUT # 11.5 K/uL (1.8-7.0); NEUT % 80.8 % (50.0-75.0); NRBC % 0.1 % (0.0-2.0); RBC 4.25 Mil/uL (4.40-5.90); RED CELL DISTRIBUTION WIDTH 19.9 % (11.5-14.5); WHITE BLOOD COUNT 14.2 K/uL (4.8-10.8)
[2018-07-03 08:21] LABS: BLOOD UREA NITROGEN 26 mg/dL (9-20); CALCIUM 8.8 mg/dl (8.6-10.4); GFR NON-AFRICAN AMERICAN > 60
--- NOTE | 2018-07-03 09:05 | CP.PCM.PN ---
<Kelsi Phillips - Last Filed: 07/03/18 09:14> Subjective - Date & Time of Evaluation Date of Evaluation: 07/03/18 Time of Evaluation: 08:00 - Subjective Subjective: PGY3 Progress Note for Dr. Prem Noland: Patient was seen and examined at bedside. No acute events overnight. He states he slept well and feels refreshed this morning. He has no comaplints at this time. He would like his right hand freddy changed because it is dirty. He is able to eat without problems and is having regular bowel movements. He is not oriented to time and stated today is August 12. He was awake and was able to denied headaches, changes in vision, SOB, chest pain, pain or swelling in the extremities. He states that he does have some minor abdominal pain that comes and goes not associated with meals. Denies N/V. Patient awaiting insurance approval to go to [facility], he does have a bed waiting for him at this time. Objective - Vital Signs/Intake and Output Vital Signs (last 24 hours): Temp Pulse Resp BP Pulse Ox 98.0 F 85 20 120/69 100 07/03/18 08:48 07/03/18 08:48 07/03/18 08:48 07/03/18 08:48 07/03/18 08:48 - Medications Medications: Current Medications Albuterol/Ipratropium (Duoneb 3 Mg/0.5 Mg (3 Ml) Ud) 3 ml INH RQ4 MAYANK Last Admin: 07/03/18 07:22 Dose: Not Given Aripiprazole (Abilify) 5 mg PO HS MAYANK Last Admin: 07/02/18 22:38 Dose: 5 mg Diltiazem HCl (Cardizem) 60 mg PO Q6H [facility] Last Admin: 07/03/18 05:37 Dose: 60 mg Folic Acid (Folic Acid) 1 mg PO DAILY [facility] Last Admin: 07/02/18 10:32 Dose: 1 mg Guaifenesin (Robitussin) 200 mg PO Q4H PRN PRN Reason: Cough and congestion Last Admin: 06/30/18 22:01 Dose: 200 mg Haloperidol Lactate (Haldol) 2 mg IVP Q6H PRN PRN Reason: Agitation Last Admin: 06/29/18 21:58 Dose: 2 mg Lactobacillus Acidophilus (Bacid Acidophilus) 1 cap PO BID [facility] Last Admin: 07/02/18 17:33 Dose: 1 cap Levetiracetam (Keppra) 250 mg PO BID [facility] Last Admin: 07/02/18 17:33 Dose: 250 mg Lisinopril (Zestril) 10 mg PO DAILY [facility] Last Admin: 07/02/18 10:32 Dose: 10 mg Lorazepam (Ativan) 2 mg IVP Q6H PRN PRN Reason: Anxiety Last Admin: 07/02/18 07:37 Dose: 2 mg Multivitamins/Vitamin C (Multi-Delyn Liquid) 5 ml PO DAILY [facility] Last Admin: 07/02/18 10:33 Dose: Not Given Mupirocin (Bactroban 2% Nasal) 0.25 gm KAYA BID [facility] Last Admin: 07/02/18 22:32 Dose: 0.25 gm Pantoprazole Sodium (Protonix Ec Tab) 40 mg PO Q12 [facility] Last Admin: 07/02/18 22:32 Dose: 40 mg Prednisone (Prednisone Tab) 40 mg PO ONCE ONE Stop: 07/03/18 10:01 Prednisone (Prednisone Tab) 30 mg PO ONCE ONE Stop: 07/04/18 10:01 Prednisone (Prednisone Tab) 20 mg PO ONCE ONE Stop: 07/05/18 10:01 Prednisone (Prednisone Tab) 10 mg PO ONCE ONE Stop: 07/06/18 10:01 Sucralfate (Carafate Oral Susp) 1 gm PO QID [facility] Last Admin: 07/02/18 22:32 Dose: 1 gm Thiamine HCl (Vitamin B1 Tab) 100 mg PO BID [facility] Last Admin: 07/02/18 17:33 Dose: 100 mg - Labs Labs: 07/03/18 07:46 07/03/18 07:49 PT 13.6 SECONDS (9.7-12.2) H 06/20/18 10:09 INR 1.2 06/20/18 10:09 APTT 40 SECONDS (21-34) H 06/10/18 23:37 - Constitutional Appears: Non-toxic, No Acute Distress, Cachectic, Chronically Ill - Head Exam Head Exam: ATRAUMATIC, NORMAL INSPECTION - Eye Exam Eye Exam: EOMI, Normal appearance Pupil Exam: NORMAL ACCOMODATION - Respiratory Exam Respiratory Exam: Clear to Ausculation Bilateral, NORMAL BREATHING PATTERN. absent: Respiratory Distress Additional comments: on NC - Cardiovascular Exam Cardiovascular Exam: REGULAR RHYTHM, +S1, +S2, Murmur - GI/Abdominal Exam GI & Abdominal Exam: Soft, Normal Bowel Sounds. absent: Distended, Firm, Guarding, Tenderness - Extremities Exam Extremities Exam: Normal Inspection - Back Exam Back Exam: NORMAL INSPECTION Additional comments: stage 2 sacral ulcer - Neurological Exam Neurological Exam: Alert, Awake. absent: Normal Gait, Oriented x3 - Psychiatric Exam Psychiatric exam: Normal Affect, Normal Mood Assessment and Plan - Assessment and Plan (Free Text) Assessment: Alcohol Use Disorder - severe Alcoholic Liver Disease * Hx heavy use * Off Precedex * Off Librium 25 mg PO Q8H 06/22/18 * MVI PO 1x/day * Thiamine 100mg PO BID * Folic acid 1mg PO daily * Abdominal US report available in the EMR: limited but liver changes Systolic and Diastolic Heart Failure * Echocardiogram 06/12/18 shows EF at 45-50%, left ventricular diastolic function abnormal with Grade I abnormal relaxation pattern, trace to mild ticuspid regurgitation * Lisinopril 10 mg PO daily * Cardizem 60mg PO Q6H * Aspirin contraindication secondary to bleeding ulcer Seizure * Neurology Dr. Richie Rubi on board-->help appreciated * Risk factor: heavy alcohol use and hyponatremia, hypomagnesium * Head CT (06/11/18): no acute intracranial abnormality. Chronic microvascular ischemic changes. sinus mucosal disease as above * He has a history of alcohol withdrawal seizures * Patient is off Precedex * Keppra 250 mg PO Q12H * Recommend EEG if mental status does not improve after extubation and once off precedex Anemia likely secondary to GI Bleed History of Peptic Ulcer Disease Bleeding Ulcer * GI Dr. Ho on consult help appreciated * CT Chest/abdomen/pelvis (06/12/18): distended bowel suggesting an ileus. Markedly limited evaluation of the bowel without oral or intravenous contrast. Suggestion of prior Bilroth 2 procedure. Fluid filled dilatation of small bowel andproximal colon. Fluid filled dilatation of the small bowel and prozimal colon. Fluid in the descending colon without a sharp transition sozne. Portions of transverse colon were not well visualized. * Monitor H/H and transfuse as needed * Carafate 1g qid * S/P EGD POD: 2 anastomotic ulcers with visible vessel s/p APC and 5 clips, one ulcer with visible vessel and adherent clot was not intervened on due to adverse location--->If pt develops further bleeding will need IR and Surgery on board, difficult to treat endoscopically * Monitor H/H: received 2 units on 06/16/18 and is currently stable * Protonix 40mg PO BID * No NSAIDS and strong history of alcohol abuse Acute Respiratory Failure Likely secondary to Aspiration Pneumonia * CT Chest 06/11/18: thinned walled cavity in the right upper lobe which may be the sequelae of prior infection 5mm subpleural nodule within the anterior right middle lobe. Focal consolidation within the inferior right middle lobe. Focal consolidation within the right lower lobe. Patchy ground glass opacities in both lungs which and nonspecific but may secondary to alectasis versus contusion versus pneumonitis. * Chest xray (06/23/18): small right pleural effusion. left basilar linear scar/ subsegmental atelectasis. no acute infiltrate. * Extubated 06/12/18 and Re-intubated on 06/14/18 and extubated 06/17/18 * Patient has productive cough * Robotussin 200mg POq4H PRN cough and congestion * Chest physiotherapy * Tracheal Aspirate 06/16/18 showed Yeast and was treated with Fluconazole 100 IV and was discontinued once repeat Sputum 06/22/18 showed Klebsiella which is sensitive to Ciprofloxacin * Was treated with Meropenem 1gram IV Q8H and Vancomycin 1 gram IV Q12H and NOW to complete Cipro 500 mg PO 2x/day through 07/02/18 * Salumedrol d/c'd due to increasing WBC count. Prednisone taper started 06/01 to be completed on 06/05 Open Wounds on Sacrum Stage II * Turn [id number] * MediHoney with Optifoam Dressing * Latest wound care note: (06/22/18) WOUND CARE NOTE-Patient re-assessed; found to have improving MASD, Moisture associated skin damage to sacral/coccyx regions. Skin continues with blanchable erythema; erosions resolving. recommending to continue aloevesta protective ointment to entire sacral/coccyx regions 3x/day and prn for incontinent episodes. Must reposition this patient frequently to optimize offloading. Will continue to follow. Cardiopulmonary Arrest * Cardiology Dr. Iglesias consulted, help appreciated * PEA s/p ROSC NSR * Echocardiogram (06/12/18): ejection fraction: 45-50%, left ventricular diastolic function is abnormal. left atrium size looks normal right atrium size looks normal. trace to mild tricupsid regurgitaton * Solumedrol 40 mg IV Q8H (since 06/17/18) * EEG (06/15) shows an abnormal awake and drowsy EEG which is very slow, indicating encephalopathy or medication effect. Repeat EEG? Hypokalemia/Hypomagnesemia/Hypophosphotemia Assessment/Plan * Replete as needed Bilateral Anterior Rib and Sternal Fractures * Noted on CT Chest * Secondary to CPR given cardiopulmonary arrest Metabolic Acidosis --> resolved * Likely secondary to the Cadriopulmonary Arrest, GI bleed, Respiratory Distress Hypocalcemia --> Resolved Hyponatremia --> resolved * Nephrology Dr. Sahfer on board-->help appreciated * Secondary to Alcohol Abuse * Received 3 NS boluses in ER * Seizure precautions * Normalized Urinary tract infection-->resolved * Treated with Zosyn 3.375g IV Q8H * Repeat urine culture 06/13/18 showed NO growth Bacteremia-->resolved * Repeat blood culture 06/12/18 is negative at 5 days Prophylactic measure * Protonix 40 mg PO Q12H * Lactobacillus 1 cap PO 2x/day * Chemical anticoagulation held secondary to GI bleed * Haldol 2 mg IV Q6H PRN Agitation * Turn [id number] * Aspiration precautions * Seizure precautions * Wound care on board * PT/OT eval Disposition: Pending authorization. Possible D/C to [facility] Mon 07/04. <Prem Noland - Last Filed: 07/03/18 10:58> Objective - Vital Signs/Intake and Output Vital Signs (last 24 hours): Temp Pulse Resp BP Pulse Ox 98.0 F 85 20 120/69 100 07/03/18 08:48 07/03/18 08:48 07/03/18 08:48 07/03/18 08:48 07/03/18 08:48 - Medications Medications: Current Medications Albuterol/Ipratropium (Duoneb 3 Mg/0.5 Mg (3 Ml) Ud) 3 ml INH RQ4 [facility] Last Admin: 07/03/18 07:22 Dose: Not Given Aripiprazole (Abilify) 5 mg PO HS [facility] Last Admin: 07/02/18 22:38 Dose: 5 mg Diltiazem HCl (Cardizem) 60 mg PO Q6H [facility] Last Admin: 07/03/18 05:37 Dose: 60 mg Folic Acid (Folic Acid) 1 mg PO DAILY [facility] Last Admin: 07/03/18 09:26 Dose: 1 mg Guaifenesin (Robitussin) 200 mg PO Q4H PRN PRN Reason: Cough and congestion Last Admin: 06/30/18 22:01 Dose: 200 mg Haloperidol Lactate (Haldol) 2 mg IVP Q6H PRN PRN Reason: Agitation Last Admin: 06/29/18 21:58 Dose: 2 mg Lactobacillus Acidophilus (Bacid Acidophilus) 1 cap PO BID [facility] Last Admin: 07/03/18 09:26 Dose: 1 cap Levetiracetam (Keppra) 250 mg PO BID [facility] Last Admin: 07/03/18 09:26 Dose: 250 mg Lisinopril (Zestril) 10 mg PO DAILY [facility] Last Admin: 07/03/18 09:26 Dose: 10 mg Lorazepam (Ativan) 2 mg IVP Q6H PRN PRN Reason: Anxiety Last Admin: 07/02/18 07:37 Dose: 2 mg Multivitamins/Vitamin C (Multi-Delyn Liquid) 5 ml PO DAILY [facility] Last Admin: 07/03/18 09:26 Dose: 5 ml Mupirocin (Bactroban 2% Nasal) 0.25 gm KAYA BID [facility] Last Admin: 07/03/18 09:26 Dose: 0.25 gm Pantoprazole Sodium (Protonix Ec Tab) 40 mg PO Q12 [facility] Last Admin: 07/03/18 09:26 Dose: 40 mg Prednisone (Prednisone Tab) 30 mg PO ONCE ONE Stop: 07/04/18 10:01 Prednisone (Prednisone Tab) 20 mg PO ONCE ONE Stop: 07/05/18 10:01 Prednisone (Prednisone Tab) 10 mg PO ONCE ONE Stop: 07/06/18 10:01 Sucralfate (Carafate Oral Susp) 1 gm PO QID [facility] Last Admin: 07/03/18 09:26 Dose: 1 gm Thiamine HCl (Vitamin B1 Tab) 100 mg PO BID [facility] Last Admin: 07/03/18 09:26 Dose: 100 mg - Labs Labs: 07/03/18 07:46 07/03/18 07:49 PT 13.6 SECONDS (9.7-12.2) H 06/20/18 10:09 INR 1.2 06/20/18 10:09 APTT 40 SECONDS (21-34) H 06/10/18 23:37 Attending/Attestation - Attestation I have personally seen and examined this patient.: Yes I have fully participated in the care of the patient.: Yes I have reviewed all pertinent clinical information, including history, physical exam and plan: Yes Notes (Text): 07/03/18 10:50 Hospitalist Progress Note Patient was seen and examined at 10:45 AM 07/03/18 Patient was asleep but arousable. Did not know who I was. Was not verbally abusive today. Not aware of date and time. Ate well. Had bowel movement as per my conversation with EDUCATIONAL COORDINATOR who cleaned this morning and there was NO skin breakdown on any of the bony prominences 07/02/18: Spoke with patient's Sister Jenifer ([phone]) who was at bedside and went over patient's diagnosises. 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 Newest story is that he relayed that there was a burgarly in his room last night. He is pending for [facility] Placement at [facility]: resting comfortably at the time of my exam and cooperative with exam. HEENT: NCA, PERRLA, EOMI, NO lymphadenopathy, NO thyromegaly, NO pharyngeal erythema/exudate Cardio: heart sounds are very faint however this exam is limited (NS1 and NS2, NO M/R/G) Respiratory: Course breath sounds diffusely GI: BSx4, Soft, NO HSM, NO guarding/rebound tenderness, ND, NT Ext: Radial pulses are strong and equal, Pedal pulses are weak, NO edema, Capillary Refill is 3 seconds, Bilateral lower legs with multiple round dry eschars Skin: NO skin breakdown noted by EDUCATIONAL COORDINATOR who cleaned him this morning 07/03/18 Assessment/Plan 1). Cardiopulmonary Arrest Assessment/Plan * Cardiology Dr. Iglesias director operations broadcast-->help appreciated * PEA s/p ROSC NSR * Echocardiogram (06/12/18): ejection fraction: 45-50%, left ventricular diastolic function is abnormal. left atrium size looks normal right atrium size looks normal. trace to mild tricupsid regurgitaton * EEG (06/15) shows an abnormal awake and drowsy EEG which is very slow, indicating encephalopathy or medication effect. * Prednisone Taper to finish on 07/06/18 2). Hyponatremia Assessment/Plan * Nephrology Dr. Shafer on board-->help appreciated * Secondary to Alcohol Abuse * Received 3 NS boluses in ER * Seizure precautions * Normalized 3). Hypokalemia/Hypomagnesemia/Hypophosphotemia Assessment/Plan * Replete as needed 4). Metabolic Acidosis Assessment/Plan * Likely secondary to the Cadriopulmonary Arrest, GI bleed, Respiratory Distress * Resolved 5). Seizure Assessment/Plan * Neurology Dr. Richie Rubi on board-->help appreciated * Risk factor: heavy alcohol use and hyponatremia, hypomagnesium * Head CT (06/11/18): no acute intracranial abnormality. Chronic microvascular ischemic changes. sinus mucosal disease as above * He has a history of alcohol withdrawal seizures * Patient is off Precedex * Keppra 250 mg PO Q12H * EEG (06/15) shows an abnormal awake and drowsy EEG which is very slow, indicating encephalopathy or medication effect. 6). Anemia likely secondary to GI Bleed History of Peptic Ulcer Disease Bleeding Ulcer Assessment/Plan * GI Dr. Ho on consult help appreciated * CT Chest/abdomen/pelvis (06/12/18): distended bowel suggesting an ileus. Markedly limited evaluation of the bowel without oral or intravenous contrast. Suggestion of prior Bilroth 2 procedure. Fluid filled dilatation of small bowel andproximal colon. Fluid filled dilatation of the small bowel and prozimal colon. Fluid in the descending colon without a sharp transition sozne. Portions of transverse colon were not well visualized. * Monitor H/H and transfuse as needed * Carafate 1g qid * S/P EGD POD: 2 anastomotic ulcers with visible vessel s/p APC and 5 clips, one ulcer with visible vessel and adherent clot was not intervened on due to adverse location--->If pt develops further bleeding will need IR and Surgery on board, difficult to treat endoscopically * Monitor H/H: received 2 units on 06/16/18 and is currently stable * Protonix 40mg PO BID * No NSAIDS and strong history of alcohol abuse 7). Hypocalcemia Assessment/Plan * Monitor 8). Acute Respiratory Failure Aspiration Pneumonia Assessment/Plan * CT Chest 06/11/18: thinned walled cavity in the right upper lobe which may be the sequelae of prior infection 5mm subpleural nodule within the anterior right middle lobe. Focal consolidation within the inferior right middle lobe. Focal consolidation within the right lower lobe. Patchy ground glass opacities in both lungs which and nonspecific but may secondary to alectasis versus contusion versus pneumonitis. * Chest xray (06/23/18): small right pleural effusion. left basilar linear scar/ subsegmental atelectasis. no acute infiltrate. * Extubated 06/12/18 and Re-intubated on 06/14/18 and extubated 06/17/18 * Patient has productive cough * Robotussin 200mg POq4H PRN cough and congestion * Chest physiotherapy * Tracheal Aspirate 06/16/18 showed Yeast and was treated with Fluconazole 100 IV and was discontinued once repeat Sputum 06/22/18 showed Klebsiella which is sensitive to Ciprofloxacin * Was treated with Meropenem 1gram IV Q8H and Vancomycin 1 gram IV Q12H and completed Cipro 500 mg PO 2x/day through 07/02/18 9) Open Wounds on Sacrum Stage II Assessment/Plan * Turn [id number] * Treated with [facility] with Optifoam Dressing * Wound care note: (06/22/18) WOUND CARE NOTE-Patient re-assessed; found to have improving MASD, Moisture associated skin damage to sacral/coccyx regions. Skin continues with blanchable erythema; erosions resolving. recommending to continue aloevesta protective ointment to entire sacral/coccyx regions 3x/day and prn for incontinent episodes. Must reposition this patient frequently to optimize offloading. Will continue to follow. 10) Bilateral Anterior Rib and Sternal Fractures Assessment/Plan * Noted on CT Chest * Secondary to CPR given cardiopulmonary arrest 11) Systolic and Diastolic Heart Failure * Echocardiogram 06/12/18 shows EF at 45-50%, left ventricular diastolic function abnormal with Grade I abnormal relaxation pattern, trace to mild ticuspid regurgitation * Lisinopril 10 mg PO 1x/day * Cardizem 60mg PO Q6H * Aspirin contraindication secondary to bleeding ulcer 12) Urinary tract infection-->resolved * Treated with Zosyn 3.375g IV Q8H * Repeat urine culture 06/13/18 showed NO growth 13) Bacteremia-->resolved * Repeat blood culture 06/12/18 is negative at 5 days 14) 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
[2018-07-03] MEDS: Mupirocin 2% Ointment (NASAL) NAS SCH ×2 (09:26→17:18)
[2018-07-03] MEDS: Lactobacillus Acidophilus 500 MU Cap PO SCH ×2 (09:26→17:18)
[2018-07-03] MEDS: Multiple Vitamins Oral Solution PO SCH (09:26)
[2018-07-03] MEDS: Sucralfate 1 gm/10 ml Oral Susp UD PO SCH ×4 (09:26→22:03)
[2018-07-03] MEDS: Pantoprazole 40 mg EC Tab PO SCH ×2 (09:26→22:02)
--- NOTE | 2018-07-03 19:31 | CP.PCM.PCO ---
Physician Communication Note - Physician Communication Note Physician Communication Note: Please see above
[2018-07-04] MEDS: Albuterol-Ipratrop 3 mg / 0.5 (3 ml) UD INH SCH ×6 (00:26→20:14)
[2018-07-04] MEDS: Sucralfate 1 gm/10 ml Oral Susp UD PO SCH ×4 (10:00→21:24)
[2018-07-04] MEDS ORDERED: Sodium Chloride 0.9% 500 ML IV ONE ×5 (10:09→20:29)
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
[2018-07-04] MEDS: Multiple Vitamins Oral Solution PO SCH (10:42)
[2018-07-04] MEDS: Pantoprazole 40 mg EC Tab PO SCH ×2 (10:42→21:24)
[2018-07-04] MEDS: Lactobacillus Acidophilus 500 MU Cap PO SCH ×2 (10:42→18:00)
[2018-07-04] MEDS: Mupirocin 2% Ointment (NASAL) NAS SCH ×2 (10:43→21:24)
[2018-07-04] MEDS ORDERED: Glucagon Recombinant 1 mg Inj IM STA (11:24)
[2018-07-04 13:06] LABS: BASO # 0.1 K/uL (0.0-0.2); BASO % 0.2 % (0.0-2.0); EOS # 0.2 K/uL (0.0-0.7); EOS % 0.4 % (0.0-4.0); HEMOGLOBIN 12.7 g/dL (12.0-18.0); LYMPH # 2.3 K/uL (1.0-4.3); LYMPH % 6.7 % (20.0-40.0); MEAN CORPUSCULAR HEMOGLOBIN 30.1 pg (27.0-31.0); MEAN CORPUSCULAR HGB CONC 33.5 g/dL (33.0-37.0); MONO # 0.8 K/uL (0.0-0.8); MONO % 2.3 % (0.0-10.0); NEUT # 30.7 K/uL (1.8-7.0); NEUT % 90.4 % (50.0-75.0); NRBC % 0.1 % (0.0-2.0); PLATELET COUNT 195 K/uL (130-400); RBC 4.21 Mil/uL (4.40-5.90)
[2018-07-04 13:14] LABS: MEAN CELL VOLUME 89.7 fL (80.0-94.0)
[2018-07-04 13:24] LABS: BLOOD UREA NITROGEN 29 mg/dL (9-20); CALCIUM 8.1 mg/dl (8.6-10.4); GFR NON-AFRICAN AMERICAN > 60
[2018-07-04 14:08] LABS: ANISOCYTOSIS MODERATE; BANDS 6 % (0-2); LYMPHOCYTE 7 % (20-40); MONOCYTE 3 % (0-10); NEUTROPHIL 83 % (50-75); OVALOCYTES SLIGHT; PLATELET ESTIMATE NORMAL (NORMAL); POIKILOCYTOSIS SLIGHT; POLYCHROMIC SLIGHT; REACTIVE LYMPHOCYTES 1 % (0-0); TOTAL CELLS COUNTED 100
[2018-07-04 14:09] LABS: TEARDROP CELLS SLIGHT; TOXIC GRANULATION PRESENT
[2018-07-04] MEDS ORDERED: Piperacillin/Tazobact 3.375 GM in Sodium Chloride 100 ML IVPB SCH (15:00)
[2018-07-04 15:40] LABS: SQUAMOUS EPITHIAL 1 /hpf (0-5); URINE BACTERIA RARE (<OCC); URINE BILIRUBIN NEGATIVE (NEGATIVE); URINE BLOOD NEGATIVE (NEGATIVE); URINE CLARITY Clear (Clear); URINE COLOR Yellow (YELLOW); URINE GLUCOSE (UA) NORMAL (Normal); URINE LEUKOCYTE ESTERASE NEG Leu/uL (Negative); URINE PROTEIN NEGATIVE (NEGATIVE); URINE UROBILINOGEN NORMAL mg/dL (0.2-1.0)
[2018-07-04] MEDS ORDERED: Sodium Chloride 0.9% 500 ML IV SCH (16:30)
[2018-07-04] MEDS ORDERED: Albumin Human 25% (12.5 gm/50 ml) IV ONE (16:35)
--- NOTE | 2018-07-04 16:37 | RAD ---
Date of service: 07/04/2018 HISTORY: Aspiration risk White count COMPARISON: 06/23/2018. FINDINGS: LUNGS: The lungs are well inflated. There is discoid atelectasis in the left lung base. No focal consolidation. PLEURA: No significant pleural effusion identified, no pneumothorax apparent. CARDIOVASCULAR: Normal. OSSEOUS STRUCTURES: Stable. VISUALIZED UPPER ABDOMEN: Normal. OTHER FINDINGS: None. IMPRESSION: No acute findings.
[2018-07-04 16:44] LABS: ARTERIAL BLOOD GAS HCO3 22.7 mmol/L (21-28); ARTERIAL BLOOD GAS O2 SAT 99.2 % (95-98); ARTERIAL BLOOD GAS PCO2 33 mm/Hg (35-45); ARTERIAL BLOOD GAS PH 7.41 (7.35-7.45); ARTERIAL BLOOD GAS PO2 138 mm/Hg (80-100); ARTERIAL BLOOD GAS TCO2 21.9 mmol/L (22-28)
[2018-07-04] MEDS: Piperacillin/Tazobact 3.375 GM in Sodium Chloride 100 ML IVPB SCH ×2 (17:03→22:56)
[2018-07-04] MEDS ORDERED: Sodium Chloride 0.9% 1,000 ML IV ONE ×2 (17:45→20:20)
[2018-07-04] MEDS ORDERED: Sodium Chloride 0.9% 1,000 ML IV SCH (18:45)
--- NOTE | 2018-07-04 18:46 | PCM.RRT ---
<Thomas Springer - Last Filed: 07/04/18 18:43> SHEET [employer] WORKER [employer]PRENTICE Nurses Assessment - Situation Date: 07/04/18 Time SHEET METAL WORKER APPRENTICE was called: 16:25 SHEET METAL WORKER APPRENTICE Responder Arrival Time:: 16:30 SHEET METAL WORKER APPRENTICE Location:: Med/Surg Room Number: 557A [employer] WORKER APPRENTICE Reason for Call: Hypotension SHEET MET[employer] WORKER APPRENTICE Called By: RN - IV IV Inserted during SHEET METAL WORKER APPRENTICE?: No IV Fluids Initiated During SHEET METAL WORKER APPRENTICE?: 500cc bolus of Normal Saline New IV Insertion Tolerance: Excellent - Respiratory SHEET MET[employer] WORKER APPRENTICE Delivery Method: Nasal Cannula @L/min Oxygen Flow Rate: 5 Received Nebulizer Treatments: No Was the Patient Ventilated with Bag/Mask 100% O2?: No Secretions Suctioned?: Yes (mucoid secretion) Was the Patient Intubated?: No Was the Patient Placed on a Ventilator?: No - Ventilator Settings SAO2 %: 100 - Medication Medications Administered During SHEET MET[employer] WORKER APPRENTICE: No - Diagnostic Test Ordered EKG: No Chest X-Ray: No CT Scan: No - Stat Labs Ordered SHEET MET[employer] WORKER APPRENTICE Stat Labs Ordered: ABG CPR started during SHEET METAL WORKER APPRENTICE?: No - Vital Signs Vital Signs: Rapid Response Vital Sign Blood Pressure 76/58 Pulse Rate 122 Respiratory Rate 25 Temperature 98.7 F Oxygen Saturation 95 - Sepsis Screen Part 1 Sepsis Screen Part 1: Hypotensive - Sepsis Screen Part 2 Sepsis Screen Part 2: WBC over 12,000 - Time SHEET [employer] WORKER APPRENTICE Ended Time SHEET METAL WORKER APPRENTICE Ended: 16:45 - Vital Signs at end of SHEET MET[employer] WORKER APPRENTICE Vital Signs at end of SHEET MET[employer] WORKER APPRENTICE: Rapid Response End Vital Sign Blood Pressure 91/57 Pulse Rate 114 Respiratory Rate 22 Temperature 98.6 F O2 Sat by Pulse Oximetry 98 - Recommendations 5) SHEET [employer] WORKER APPRENTICE Level of Care Recommendations: Transfer to ICU Notifications: Attending Physician I.Reason for SHEET METAL WORKER APPRENTICE - A) Acute Change in Patient: (Select all that apply): Acute change in SBP below (76/53) - Neurological Status (Select all that apply): Alert, Responsive, Verbal, Disoriented, Confused, Weakness. absent: Oriented, Follows Commands, Lethargic, Aggressive Other (Please specify): Patient is disoriented and confused at baseline - Respiratory Oxygen Delivery Method: Nasal Cannula @L/min Oxygen Flow Rate: 5 - Constitutional Appears: Unkempt, Older Than Stated Age, Confused, Chronically Ill. absent: Non -toxic, Combative - Head Head Exam: ATRAUMATIC, NORMAL INSPECTION - Eyes Eye Exam: EOMI, Normal appearance - Respiratory Exam Respiratory Exam: Clear to Ausculation Bilateral, NORMAL BREATHING PATTERN - Cardiovascular Exam Cardiovascular Exam: Tachycardia, REGULAR RHYTHM, +S1, +S2 - GI/Abdominal Exam GI & Abdominal Exam: Soft, Normal Bowel Sounds. absent: Tenderness - Neurological Exam Neurological Exam: Alert, Awake, CN II-XII Intact. absent: Oriented x3 - Extremities Exam Extremities Exam: Normal Capillary Refill. absent: Pedal Edema, Tenderness Plan - Assessment of Findings&Treatment Plan PGY-1 SHEET MET[employer] WORKER APPRENTICE Note for Dr. Toure SHEET METAL WORKER APPRENTICE was called at 4:26 for persistent hypotension. Patient received 500 cc NS bolus x2 prior to SHEET METAL WORKER APPRENTICE. Additional 500CC bolus administered during SHEET METAL WORKER APPRENTICE, patient put on 250 CC/hr maintenance fluids after third bolus. ICU came to see the patient - Dr. Magdaleno. Maintenance fluids were initiated per Dr. Magdaleno as well as albumin 25% 50mL x1 bolus. ABG w/ shock panel ordered STAT. VITALS: 16:28: * BP 76/53 * HR 118 * Temp 98.4 16:31: * BP 98/68 * HR 118 * Temp 98.7 ICU team to reassess and determine whether patient needs ICU transfer. <Moraima Toure V - Last Filed: 07/04/18 19:57> SHE[employer] WORKER APPRENTICE Nurses Assessment - Vital Signs Vital Signs: Rapid Response Vital Sign Blood Pressure 76/58 Pulse Rate 122 Respiratory Rate 25 Temperature 98.7 F Oxygen Saturation 95 - Vital Signs at end of SHEET METAL WORKER APPRENTICE Vital Signs at end of SHEET METAL WORKER APPRENTICE: Rapid Response End Vital Sign Blood Pressure 91/57 Pulse Rate 114 Respiratory Rate 22 Temperature 98.6 F O2 Sat by Pulse Oximetry 98 Attending/Attestation - Attestation I have personally seen and examined this patient.: Yes I have fully participated in the care of the patient.: Yes I have reviewed all pertinent clinical information, including history, physical exam and plan: Yes Notes (Text): patient seen, examined, and case discussed with resident, and icu. Patient noted hypotension refractory to fluid boluses. ABG with shock obtained. lactate: 2.0 Further orders by ICU including 3rd additional bolus, additional liter maintenance, and albumin. Patient endorsed to both night hospitalist and night ICU doctor for further evaluation. CT head repeated given patient's baseline is usually more awake, alert, and cursing staff. Patient's mental status improved since this morning but not how wendy seen him previously when he was in the ICU.
--- NOTE | 2018-07-04 19:02 | CP.PCM.PN ---
Subjective - Date & Time of Evaluation Date of Evaluation: 07/04/18 Time of Evaluation: 14:00 - Subjective Subjective: dictated Objective - Vital Signs/Intake and Output Vital Signs (last 24 hours): Temp Pulse Resp BP Pulse Ox 98.6 F 118 H 22 91/60 L 100 07/04/18 18:00 07/04/18 18:27 07/04/18 18:27 07/04/18 18:27 07/04/18 18:27 - Medications Medications: Current Medications Albuterol/Ipratropium (Duoneb 3 Mg/0.5 Mg (3 Ml) Ud) 3 ml INH RQ4 [facility] Last Admin: 07/04/18 15:56 Dose: Not Given Aripiprazole (Abilify) 5 mg PO HS [facility] Last Admin: 07/03/18 22:02 Dose: 5 mg Diltiazem HCl (Cardizem) 60 mg PO Q6H [facility] Last Admin: 07/04/18 05:13 Dose: Not Given Folic Acid (Folic Acid) 1 mg PO DAILY [facility] Last Admin: 07/04/18 10:43 Dose: 1 mg Guaifenesin (Robitussin) 200 mg PO Q4H PRN PRN Reason: Cough and congestion Last Admin: 06/30/18 22:01 Dose: 200 mg Haloperidol Lactate (Haldol) 2 mg IVP Q6H PRN PRN Reason: Agitation Last Admin: 06/29/18 21:58 Dose: 2 mg Piperacillin Sod/Tazobactam (Sod 3.375 gm/ Sodium Chloride) 100 mls @ 200 mls/ hr IVPB Q6H [facility] PRN Reason: Protocol Last Admin: 07/04/18 17:03 Dose: 200 mls/hr Sodium Chloride (Sodium Chloride 0.9%) 1,000 mls @ 250 mls/hr IV .Q4H ONE Stop: 07/04/18 21:44 Last Admin: 07/04/18 17:00 Dose: 250 mls/hr Sodium Chloride (Sodium Chloride 0.9%) 1,000 mls @ 70 mls/hr IV .[id number] [facility] Lactobacillus Acidophilus (Bacid Acidophilus) 1 cap PO BID [facility] Last Admin: 07/04/18 10:42 Dose: 1 cap Levetiracetam (Keppra) 250 mg PO BID [facility] Last Admin: 07/04/18 10:43 Dose: 250 mg Lisinopril (Zestril) 10 mg PO DAILY [facility] Last Admin: 07/04/18 11:34 Dose: Not Given Lorazepam (Ativan) 2 mg IVP Q6H PRN PRN Reason: Anxiety Last Admin: 07/04/18 04:24 Dose: 2 mg Multivitamins/Vitamin C (Multi-Delyn Liquid) 5 ml PO DAILY [facility] Last Admin: 07/04/18 10:42 Dose: 5 ml Mupirocin (Bactroban 2% Nasal) 0.25 gm KAYA BID [facility] Last Admin: 07/04/18 10:43 Dose: 0.25 gm Pantoprazole Sodium (Protonix Ec Tab) 40 mg PO Q12 [facility] Last Admin: 07/04/18 10:42 Dose: 40 mg Prednisone (Prednisone Tab) 20 mg PO ONCE ONE Stop: 07/05/18 10:01 Prednisone (Prednisone Tab) 10 mg PO ONCE ONE Stop: 07/06/18 10:01 Sucralfate (Carafate Oral Susp) 1 gm PO QID [facility] Last Admin: 07/04/18 13:43 Dose: 1 gm Thiamine HCl (Vitamin B1 Tab) 100 mg PO BID [facility] Last Admin: 07/04/18 10:43 Dose: 100 mg - Labs Labs: 07/04/18 12:57 07/04/18 12:57 PT 13.6 SECONDS (9.7-12.2) H 06/20/18 10:09 INR 1.2 06/20/18 10:09 APTT 40 SECONDS (21-34) H 06/10/18 23:37
--- NOTE | 2018-07-04 19:51 | CP.CCUPN ---
CCU Subjective - Physician Review Subjective (Free Text): Critical care progress note Patient seen on the floors after rapid response called for hypotension, despite NS 500cc bolus x2. Patient denies chest pain, shortness of breath and did not offer any complaints. Patient was resting comfortably in bed. 07/04/18 19:51 CCU Objective - Vital Signs / Intake & Output Vital Signs (Last 4 hours): Vital Signs Temp Pulse Resp BP Pulse Ox 07/04/18 18:27 118 H 22 91/60 L 100 07/04/18 18:00 98.6 F 118 H 22 86/58 L 87 L Intake and Output (Last 8hrs): Intake & Output 07/04/18 07/04/18 07/04/18 06:59 14:59 22:59 Output Total 350 Balance -350 Output: Urine 350 Condom 350 Other: # Bowel Movements 0 - Physical Exam Head: Positive for: Atraumatic, Normocephalic Pupils: Negative for: Non-Reactive, Pinpoint Extroacular Muscles: Positive for: EOMI Conjunctiva: Positive for: Normal. Negative for: Injected, Icteric Mouth: Positive for: Moist Mucous Membranes. Negative for: Normal Teeth (poor dentition, missing recently dislodged right central incisor) Nose (External): Positive for: Atraumatic. Negative for: Abrasion, Contusion, Laceration Nose (Internal): Negative for: Epistaxis Neck: Negative for: JVD Respiratory/Chest: Positive for: Clear to Auscultation. Negative for: Respiratory Distress, Wheezes, Rales Cardiovascular: Positive for: Regular Rate and Rhythm, Normal S1, S2, Peripheal Pulses Present, Tachycardic. Negative for: Irregular Rhythm, Bradycardic Abdomen: Positive for: Normal Bowel Sounds. Negative for: Tenderness (abdomen is soft), Distention Upper Extremity: Positive for: Normal Inspection, NORMAL PULSES. Negative for: Edema, Swelling, Erythema Lower Extremity: Positive for: Normal Inspection, NORMAL PULSES. Negative for: Edema, Tenderness, Swelling, Erythema, Deformity Neurological: Positive for: GCS=15, Motor Func Grossly Intact Skin: Positive for: Warm, Dry, Normal Color Psychiatric: Positive for: Alert - Medications Active Medications: Active Medications Generic Name Dose Route Start Last Admin Trade Name Freq PRN Reason Stop Dose Admin Albuterol/Ipratropium 3 ml 06/15/18 00:00 07/04/18 15:56 Duoneb 3 Mg/0.5 Mg (3 Ml) Ud INH Not Given RQ4 [facility] Aripiprazole 5 mg 06/29/18 22:00 07/03/18 22:02 Abilify PO 5 mg HS [facility] Administration Diltiazem HCl 60 mg 06/22/18 17:00 07/04/18 05:13 Cardizem PO Not Given Q6H [facility] Folic Acid 1 mg 06/18/18 10:00 07/04/18 10:43 Folic Acid PO 1 mg DAILY [facility] Administration Guaifenesin 200 mg 06/22/18 15:34 06/30/18 22:01 Robitussin PO 200 mg Q4H PRN Administration Cough and congestion Haloperidol Lactate 2 mg 06/27/18 16:59 06/29/18 21:58 Haldol IVP 2 mg Q6H PRN Administration Agitation Piperacillin Sod/Tazobactam 100 mls @ 200 mls/hr 07/04/18 16:00 07/04/18 17: 03 Sod 3.375 gm/ Sodium Chloride IVPB 200 mls/hr Q6H [facility] Administration Protocol Sodium Chloride 1,000 mls @ 250 mls/hr 07/04/18 17:45 07/04/18 17:00 Sodium Chloride 0.9% IV 07/04/18 21:44 250 mls/hr .Q4H ONE Administration Sodium Chloride 1,000 mls @ 70 mls/hr 07/04/18 18:45 Sodium Chloride 0.9% IV .[id number] [facility] Vancomycin/Sodium Chloride 1 gm in 200 mls @ 166.6 mls/hr 07/04/18 20:00 Vancomycin 1 Gm/Ns 200 Ml IVPB 07/09/18 20:01 Q12H [facility] Protocol Lactobacillus Acidophilus 1 cap 06/27/18 18:00 07/04/18 10:42 Bacid Acidophilus PO 1 cap BID [facility] Administration Levetiracetam 250 mg 06/27/18 18:00 07/04/18 10:43 Keppra PO 250 mg BID [facility] Administration Lisinopril 10 mg 06/19/18 15:15 07/04/18 11:34 Zestril PO Not Given DAILY [facility] Lorazepam 2 mg 06/29/18 11:01 07/04/18 04:24 Ativan IVP 2 mg Q6H PRN Administration Anxiety Multivitamins/Vitamin C 5 ml 06/18/18 10:00 07/04/18 10:42 Multi-Delyn Liquid PO 5 ml DAILY [facility] Administration Mupirocin 0.25 gm 07/02/18 10:00 07/04/18 10:43 Bactroban 2% Nasal KAYA 0.25 gm BID [facility] Administration Pantoprazole Sodium 40 mg 06/23/18 10:00 07/04/18 10:42 Protonix Ec Tab PO 40 mg Q12 [facility] Administration Prednisone 20 mg 07/05/18 10:00 Prednisone Tab PO 07/05/18 10:01 ONCE ONE Prednisone 10 mg 07/06/18 10:00 Prednisone Tab PO 07/06/18 10:01 ONCE ONE Sucralfate 1 gm 06/11/18 18:00 07/04/18 13:43 Carafate Oral Susp PO 1 gm QID [facility] Administration Thiamine HCl 100 mg 06/18/18 10:00 07/04/18 10:43 Vitamin B1 Tab PO 100 mg BID [facility] Administration - Patient Studies Lab Studies: Lab Studies 07/04/18 07/04/18 07/04/18 Range/Units 16:47 16:41 15:24 WBC (4.8-10.8) K/uL RBC (4.40-5.90) Mil/uL Hgb (12.0-18.0) g/dL Hct (35.0-51.0) % MCV (80.0-94.0) fL MCH (27.0-31.0) pg MCHC (33.0-37.0) g/dL RDW (11.5-14.5) % Plt Count (130-400) K/uL MPV (7.2-11.7) fL Neut % (Auto) (50.0-75.0) % Lymph % (Auto) (20.0-40.0) % [place] % (Auto) (0.0-10.0) % Eos % (Auto) (0.0-4.0) % Baso % (Auto) (0.0-2.0) % Neut # (Auto) (1.8-7.0) K/uL Lymph # (Auto) (1.0-4.3) K/uL [place] # (Auto) (0.0-0.8) K/uL Eos # (Auto) (0.0-0.7) K/uL Baso # (Auto) (0.0-0.2) K/uL Neutrophils % (Manual) (50-75) % Band Neutrophils % (0-2) % Lymphocytes % (Manual) (20-40) % Reactive Lymphs % (0-0) % Monocytes % (Manual) (0-10) % Toxic Granulation Platelet Estimate (NORMAL) Polychromasia Poikilocytosis (manual Anisocytosis (manual) Tear Drop Cells Ovalocytes Puncture Site Lra pCO2 33 L (35-45) mm/Hg pO2 138 H (80-100) mm/Hg HCO3 22.7 (21-28) mmol/L ABG pH 7.41 (7.35-7.45) ABG Total CO2 21.9 L (22-28) mmol/L ABG O2 Saturation 99.2 H (95-98) % ABG Base Excess -2.9 L (-2.0-3.0) mmol/L Obb Test Na ABG Potassium 4.1 (3.6-5.2) mmol/L Glucose 147 H (75-110) mg/dl Lactate 2.0 (0.7-2.1) mmol/L Liter Flow 4.0 Sodium 134.0 (132-148) mmol/L Potassium (3.6-5.2) mmol/L Chloride 106.0 (98-107) mmol/L Carbon Dioxide (22-30) mmol/L Anion Gap (10-20) BUN (9-20) mg/dL Creatinine (0.8-1.5) mg/dL Est GFR ( Amer) Est GFR (Non-Af Amer) Random Glucose (75-110) mg/dL Calcium (8.6-10.4) mg/dl Ammonia (9-33) umol/L Procalcitonin (0.19-0.49) NG/ML Arterial Blood Potassium 4.1 (3.6-5.2) mmol/L Urine Color Yellow (YELLOW) Urine Clarity Clear (Clear) Urine pH 7.0 (5.0-8.0) Ur Specific [place] 1.014 (1.003-1.030) Urine Protein Negative (NEGATIVE) mg/dL Urine Glucose (UA) Normal (Normal) mg/dL Urine Ketones Negative (NEGATIVE) mg/dL Urine Blood Negative (NEGATIVE) Urine Nitrate Negative (NEGATIVE) Urine Bilirubin Negative (NEGATIVE) Urine Urobilinogen Normal (0.2-1.0) mg/dL Ur Leukocyte Esterase Neg (Negative) Cherelle/uL Urine WBC (Auto) 3 (0-5) /hpf Urine RBC (Auto) 1 (0-3) /hpf Ur Squamous Epith Cells 1 (0-5) /hpf Urine Bacteria Rare (<OCC) Stool Occult Blood Positive H (NEGATIVE) 07/04/18 07/04/18 07/04/18 Range/Units 15:24 15:24 12:57 WBC (4.8-10.8) K/uL RBC (4.40-5.90) Mil/uL Hgb (12.0-18.0) g/dL Hct (35.0-51.0) % MCV (80.0-94.0) fL MCH (27.0-31.0) pg MCHC (33.0-37.0) g/dL RDW (11.5-14.5) % Plt Count (130-400) K/uL MPV (7.2-11.7) fL Neut % (Auto) (50.0-75.0) % Lymph % (Auto) (20.0-40.0) % [place] % (Auto) (0.0-10.0) % Eos % (Auto) (0.0-4.0) % Baso % (Auto) (0.0-2.0) % Neut # (Auto) (1.8-7.0) K/uL Lymph # (Auto) (1.0-4.3) K/uL [place] # (Auto) (0.0-0.8) K/uL Eos # (Auto) (0.0-0.7) K/uL Baso # (Auto) (0.0-0.2) K/uL Neutrophils % (Manual) (50-75) % Band Neutrophils % (0-2) % Lymphocytes % (Manual) (20-40) % Reactive Lymphs % (0-0) % Monocytes % (Manual) (0-10) % Toxic Granulation Platelet Estimate (NORMAL) Polychromasia Poikilocytosis (manual Anisocytosis (manual) Tear Drop Cells Ovalocytes Puncture Site pCO2 (35-45) mm/Hg pO2 (80-100) mm/Hg HCO3 (21-28) mmol/L ABG pH (7.35-7.45) ABG Total CO2 (22-28) mmol/L ABG O2 Saturation (95-98) % ABG Base Excess (-2.0-3.0) mmol/L Bob Test ABG Potassium (3.6-5.2) mmol/L Glucose (75-110) mg/dl Lactate (0.7-2.1) mmol/L Liter Flow Sodium 133 (132-148) mmol/L Potassium 3.9 (3.6-5.2) mmol/L Chloride 98 (98-107) mmol/L Carbon Dioxide 25 (22-30) mmol/L Anion Gap 14 (10-20) BUN 29 H (9-20) mg/dL Creatinine 1.0 (0.8-1.5) mg/dL Est GFR ( Amer) > 60 Est GFR (Non-Af Amer) > 60 Random Glucose 148 H (75-110) mg/dL Calcium 8.1 L (8.6-10.4) mg/dl Ammonia < 9 L (9-33) umol/L Procalcitonin 0.83 H (0.19-0.49) NG/ML Arterial Blood Potassium (3.6-5.2) mmol/L Urine Color (YELLOW) Urine Clarity (Clear) Urine pH (5.0-8.0) Ur Specific [place] (1.003-1.030) Urine Protein (NEGATIVE) mg/dL Urine Glucose (UA) (Normal) mg/dL Urine Ketones (NEGATIVE) mg/dL Urine Blood (NEGATIVE) Urine Nitrate (NEGATIVE) Urine Bilirubin (NEGATIVE) Urine Urobilinogen (0.2-1.0) mg/dL Ur Leukocyte Esterase (Negative) Cherelle/uL Urine WBC (Auto) (0-5) /hpf Urine RBC (Auto) (0-3) /hpf Ur Squamous Epith Cells (0-5) /hpf Urine Bacteria (<OCC) Stool Occult Blood (NEGATIVE) 07/04/18 Range/Units 12:57 WBC 34.0 H D (4.8-10.8) K/uL RBC 4.21 L (4.40-5.90) Mil/uL Hgb 12.7 (12.0-18.0) g/dL Hct 37.8 (35.0-51.0) % MCV 89.7 D (80.0-94.0) fL MCH 30.1 (27.0-31.0) pg MCHC 33.5 (33.0-37.0) g/dL RDW 20.0 H (11.5-14.5) % Plt Count 195 (130-400) K/uL MPV 8.0 (7.2-11.7) fL Neut % (Auto) 90.4 H (50.0-75.0) % Lymph % (Auto) 6.7 L (20.0-40.0) % [place] % (Auto) 2.3 (0.0-10.0) % Eos % (Auto) 0.4 (0.0-4.0) % Baso % (Auto) 0.2 (0.0-2.0) % Neut # (Auto) 30.7 H (1.8-7.0) K/uL Lymph # (Auto) 2.3 (1.0-4.3) K/uL [place] # (Auto) 0.8 (0.0-0.8) K/uL Eos # (Auto) 0.2 (0.0-0.7) K/uL Baso # (Auto) 0.1 (0.0-0.2) K/uL Neutrophils % (Manual) 83 H (50-75) % Band Neutrophils % 6 H (0-2) % Lymphocytes % (Manual) 7 L (20-40) % Reactive Lymphs % 1 H (0-0) % Monocytes % (Manual) 3 (0-10) % Toxic Granulation Present Platelet Estimate Normal (NORMAL) Polychromasia Slight Poikilocytosis (manual Slight Anisocytosis (manual) Moderate Tear Drop Cells Slight Ovalocytes Slight Puncture Site pCO2 (35-45) mm/Hg pO2 (80-100) mm/Hg HCO3 (21-28) mmol/L ABG pH (7.35-7.45) ABG Total CO2 (22-28) mmol/L ABG O2 Saturation (95-98) % ABG Base Excess (-2.0-3.0) mmol/L Bob Test ABG Potassium (3.6-5.2) mmol/L Glucose (75-110) mg/dl Lactate (0.7-2.1) mmol/L Liter Flow Sodium (132-148) mmol/L Potassium (3.6-5.2) mmol/L Chloride (98-107) mmol/L Carbon Dioxide (22-30) mmol/L Anion Gap (10-20) BUN (9-20) mg/dL Creatinine (0.8-1.5) mg/dL Est GFR ( Amer) Est GFR (Non-Af Amer) Random Glucose (75-110) mg/dL Calcium (8.6-10.4) mg/dl Ammonia (9-33) umol/L Procalcitonin (0.19-0.49) NG/ML Arterial Blood Potassium (3.6-5.2) mmol/L Urine Color (YELLOW) Urine Clarity (Clear) Urine pH (5.0-8.0) Ur Specific [place] (1.003-1.030) Urine Protein (NEGATIVE) mg/dL Urine Glucose (UA) (Normal) mg/dL Urine Ketones (NEGATIVE) mg/dL Urine Blood (NEGATIVE) Urine Nitrate (NEGATIVE) Urine Bilirubin (NEGATIVE) Urine Urobilinogen (0.2-1.0) mg/dL Ur Leukocyte Esterase (Negative) Cherelle/uL Urine WBC (Auto) (0-5) /hpf Urine RBC (Auto) (0-3) /hpf Ur Squamous Epith Cells (0-5) /hpf Urine Bacteria (<OCC) Stool Occult Blood (NEGATIVE) Laboratory Results - last 24 hr 07/04/18 07/04/18 07/04/18 12:57 12:57 15:24 WBC 34.0 H D RBC 4.21 L Hgb 12.7 Hct 37.8 MCV 89.7 D MCH 30.1 MCHC 33.5 RDW 20.0 H Plt Count 195 MPV 8.0 Neut % (Auto) 90.4 H Lymph % (Auto) 6.7 L [place] % (Auto) 2.3 Eos % (Auto) 0.4 Baso % (Auto) 0.2 Neut # (Auto) 30.7 H Lymph # (Auto) 2.3 [place] # (Auto) 0.8 Eos # (Auto) 0.2 Baso # (Auto) 0.1 Neutrophils % (Manual) 83 H Band Neutrophils % 6 H Lymphocytes % (Manual) 7 L Reactive Lymphs % 1 H Monocytes % (Manual) 3 Toxic Granulation Present Platelet Estimate Normal Polychromasia Slight Poikilocytosis (manual Slight Anisocytosis (manual) Moderate Tear Drop Cells Slight Ovalocytes Slight Puncture Site pCO2 pO2 HCO3 ABG pH ABG Total CO2 ABG O2 Saturation ABG Base Excess Bob Test ABG Potassium Glucose Lactate Liter Flow Sodium 133 Potassium 3.9 Chloride 98 Carbon Dioxide 25 Anion Gap 14 BUN 29 H Creatinine 1.0 Est GFR ( Amer) > 60 Est GFR (Non-Af Amer) > 60 Random Glucose 148 H Calcium 8.1 L Ammonia < 9 L Procalcitonin Arterial Blood Potassium Urine Color Urine Clarity Urine pH Ur Specific [place] Urine Protein Urine Glucose (UA) Urine Ketones Urine Blood Urine Nitrate Urine Bilirubin Urine Urobilinogen Ur Leukocyte Esterase Urine WBC (Auto) Urine RBC (Auto) Ur Squamous Epith Cells Urine Bacteria Stool Occult Blood 07/04/18 07/04/18 07/04/18 15:24 15:24 16:41 WBC RBC Hgb Hct MCV MCH MCHC RDW Plt Count MPV Neut % (Auto) Lymph % (Auto) [place] % (Auto) Eos % (Auto) Baso % (Auto) Neut # (Auto) Lymph # (Auto) [place] # (Auto) Eos # (Auto) Baso # (Auto) Neutrophils % (Manual) Band Neutrophils % Lymphocytes % (Manual) Reactive Lymphs % Monocytes % (Manual) Toxic Granulation Platelet Estimate Polychromasia Poikilocytosis (manual Anisocytosis (manual) Tear Drop Cells Ovalocytes Puncture Site Lra pCO2 33 L pO2 138 H HCO3 22.7 ABG pH 7.41 ABG Total CO2 21.9 L ABG O2 Saturation 99.2 H ABG Base Excess -2.9 L Bob Test Na ABG Potassium 4.1 Glucose 147 H Lactate 2.0 Liter Flow 4.0 Sodium 134.0 Potassium Chloride 106.0 Carbon Dioxide Anion Gap BUN Creatinine Est GFR ( Amer) Est GFR (Non-Af Amer) Random Glucose Calcium Ammonia Procalcitonin 0.83 H Arterial Blood Potassium 4.1 Urine Color Yellow Urine Clarity Clear Urine pH 7.0 Ur Specific [place] 1.014 Urine Protein Negative Urine Glucose (UA) Normal Urine Ketones Negative Urine Blood Negative Urine Nitrate Negative Urine Bilirubin Negative Urine Urobilinogen Normal Ur Leukocyte Esterase Neg Urine WBC (Auto) 3 Urine RBC (Auto) 1 Ur Squamous Epith Cells 1 Urine Bacteria Rare Stool Occult Blood 07/04/18 16:47 WBC RBC Hgb Hct MCV MCH MCHC RDW Plt Count MPV Neut % (Auto) Lymph % (Auto) [place] % (Auto) Eos % (Auto) Baso % (Auto) Neut # (Auto) Lymph # (Auto) [place] # (Auto) Eos # (Auto) Baso # (Auto) Neutrophils % (Manual) Band Neutrophils % Lymphocytes % (Manual) Reactive Lymphs % Monocytes % (Manual) Toxic Granulation Platelet Estimate Polychromasia Poikilocytosis (manual Anisocytosis (manual) Tear Drop Cells Ovalocytes Puncture Site pCO2 pO2 HCO3 ABG pH ABG Total CO2 ABG O2 Saturation ABG Base Excess Bob Test ABG Potassium Glucose Lactate Liter Flow Sodium Potassium Chloride Carbon Dioxide Anion Gap BUN Creatinine Est GFR ( Amer) Est GFR (Non-Af Amer) Random Glucose Calcium Ammonia Procalcitonin Arterial Blood Potassium Urine Color Urine Clarity Urine pH Ur Specific [place] Urine Protein Urine Glucose (UA) Urine Ketones Urine Blood Urine Nitrate Urine Bilirubin Urine Urobilinogen Ur Leukocyte Esterase Urine WBC (Auto) Urine RBC (Auto) Ur Squamous Epith Cells Urine Bacteria Stool Occult Blood Positive H Fingerstick Blood Sugar Results: 158 Critical Care Progress Note - Nutrition Nutrition: Nutrition Category Date Time Status Dysphagia/Modified Consistency Diet [DIET] Diets 06/18/18 Lunch Active Assessment/Plan - Assessment and Plan (Free Text) Assessment: 52 year old male with history of alcohol abuse, seizure disorder, PUD, partial gastrectomy, COPD and hiatal hernia who was evaluated for hypotension with systolic BP in 70s. Plan: Hypotension In addition to NS 500cc bolus x2, additional NS 500cc bolus ordered. Patient's BP improved to 98/68 Started on NS 250cc/hr IV Albumin ordered ABG shock panel ordered which revealed lactate 2.0 Continue to monitor patient to determine if patient requires ICU monitoring. Case discussed with Dr. Magdaleno
[2018-07-04 20:38] LABS: BASO % 0.2 % (0.0-2.0); EOS % 0.1 % (0.0-4.0); HEMOGLOBIN 10.8 g/dL (12.0-18.0); LYMPH # 0.6 K/uL (1.0-4.3); LYMPH % 5.1 % (20.0-40.0); MEAN CORPUSCULAR HEMOGLOBIN 29.9 pg (27.0-31.0); MEAN CORPUSCULAR HGB CONC 33.6 g/dL (33.0-37.0); MEAN PLATELET VOLUME 8.2 fL (7.2-11.7); MONO # 0.4 K/uL (0.0-0.8); NEUT # 11.1 K/uL (1.8-7.0); NEUT % 91.6 % (50.0-75.0); NRBC % 0.1 % (0.0-2.0); RBC 3.61 Mil/uL (4.40-5.90); RED CELL DISTRIBUTION WIDTH 20.1 % (11.5-14.5)
[2018-07-04 20:39] LABS: PLATELET COUNT 112 K/uL (130-400); WHITE BLOOD COUNT 12.1 K/uL (4.8-10.8)
[2018-07-04 20:56] LABS: ALB/GLOB RATIO 1.2 (1.0-2.1); ALBUMIN 2.5 g/dL (3.5-5.0); ALT/SGPT 83 U/L (21-72); AST/SGOT 54 U/L (17-59); BLOOD UREA NITROGEN 27 mg/dL (9-20); CALCIUM 7.8 mg/dl (8.6-10.4); GFR NON-AFRICAN AMERICAN > 60
[2018-07-04 21:12] LABS: EOSINOPHIL 1 % (0-4); LYMPHOCYTE 3 % (20-40); MONOCYTE 2 % (0-10); NEUTROPHIL 94 % (50-75); TOTAL CELLS COUNTED 100
[2018-07-04 21:13] LABS: ANISOCYTOSIS SLIGHT; HYPOCHROMIC SLIGHT; PLATELET ESTIMATE DECREASED (NORMAL); POLYCHROMIC SLIGHT
[2018-07-04] MEDS: Vancomycin 1 gm/NS 200 ml 1 GM/200 ML BAG IVPB SCH (21:17)
[2018-07-04] MEDS ORDERED: hydrOXYzine HCl 25 mg/ml Inj IM ONE (22:20)
--- NOTE | 2018-07-04 23:36 | PN ---
DATE: 07/04/2018 SUBJECTIVE: The patient was seen today. He was having a midline placed and he was pretty drowsy. He has received Ativan. He was hypotensive. I think, he also had an [employer] after I left and he was started on antibiotics as x-ray was worsened. His WBC was above. His mother was outside with me and telling me, he has been drinking since his son and has drinking problem and did not want to come to the hospital until he was really worsening in his symptoms. PHYSICAL EXAMINATION: VITAL SIGNS: So when I am writing the note I see his vitals are 91/60, heart rate of 118, temperature 98.6 and saturation 100%. HEENT: Head is atraumatic. GENERAL: He was drowsy. NECK: Supple. LUNGS: Have decreased breath sounds. HEART: S1 tachy. ABDOMEN: Soft, nontender. No guarding, no rigidity present. EXTREMITIES: Have no edema. LABORATORY DATA: His white count was 34,000 today, hemoglobin 12.7, hematocrit 37.8, neutrophils are 83, bands are 6, BUN is 29, creatinine is 1. Occult blood remains positive. His hemoglobin; however, is 12.7 at this time. Chest x-ray, no acute finding. Had a chest x-ray; as the patient's white count was increased, he has no findings there on this x-ray today. His white count has gone up to 34,000. ASSESSMENT AND PLAN: He does have history of seizure disorder. So, we will leave him on vancomycin and Zosyn at this time and we will follow. We will need blood cultures again if possible may be aspirating, may be clostridium difficile but no diarrhea reported. He is hypotensive, needs fluids and needs to be monitored. Geno Sutton MD
--- NOTE | 2018-07-05 00:25 | PCM.PYCHPN ---
Psychiatric Progress Note - Psychiatric Progress Note Patient seen today, length of contact: 16 min Patient Chief Complaint: (Pt is cursing) Seen for follow up and capacity eval Problems Identified/Issues Discussed: He is seen again He is somewhat more oriented but still odd, labile, angry, non-stop cursing, cussing and not making sense. He vaguely knows why he is here (points to his heart) but doesn't know the consequences of leaving early. He at times doesn't make sense Denies SI He says he needs "a drink right now" Mental Status Examination - Cognitive Function Orientation: Place, Time (somewhat) Memory: Impaired Attention: Poor Concentration: Poor Association: Loose Fund of Knowledge: WNL - Mood Mood: Anxious, Other (very [place]) - Affect Affect: Constricted, Other (angry) - Speech Speech: Slurred - Formal Thought Process Formal Thought Process: Loosening of associations - Suicidal Ideation Suicidal Ideation: No - Homicidal Ideation Homicidal Ideation: No Goal/Treatment Plan - Goal/Treatment Plan Need for Continued Stay: Discharge may exacerbated symptoms, Severe functional impairment, Other (medical) Progress Toward Problem(s) and Goals/Treatment Plan: Pt does NOT have the capacity to make medical decisions or leave Support and psychoed Continue treating underlying conditions family involvement may help Frequent orientations Haldol 2 mg or Ativan 1 or 2 mg as needed for agitation
[2018-07-05] MEDS: Albuterol-Ipratrop 3 mg / 0.5 (3 ml) UD INH SCH ×4 (00:50→19:56)
[2018-07-05] MEDS: Piperacillin/Tazobact 3.375 GM in Sodium Chloride 100 ML IVPB SCH ×4 (03:17→21:58)
--- NOTE | 2018-07-05 06:59 | CT ---
Date of service: 07/04/2018 PROCEDURE: CT HEAD WITHOUT CONTRAST. HISTORY: change in mental status COMPARISON: CT head dated 06/11/2018 TECHNIQUE: Axial computed tomography images were obtained through the head/brain without intravenous contrast. Radiation dose: Total exam DLP = 1094 mGy-cm. This CT exam was performed using one or more of the following dose reduction techniques: Automated exposure control, adjustment of the mA and/or kV according to patient size, and/or use of iterative reconstruction technique. FINDINGS: HEMORRHAGE: No intracranial hemorrhage. BRAIN: Moderate atrophy. Scattered focal lucencies in the subcortical and periventricular white matter suggestive for chronic microvascular ischemic change. VENTRICLES: Unremarkable. No hydrocephalus. CALVARIUM: Unremarkable. PARANASAL SINUSES: Scattered mild mucosal thickening of the paranasal sinuses. MASTOID AIR CELLS: Small amount of fluid in the left mastoid air cells. OTHER FINDINGS: Atherosclerotic disease of the intracranial arteries. IMPRESSION: Chronic microvascular ischemic changes. Atrophy. If symptoms persists, consider correlation with MRI. These findings were preliminarily reported at 8:29 p.m. on 07/04/[address] Deon Thomas from [facility].
[2018-07-05] MEDS: Vancomycin 1 gm/NS 200 ml 1 GM/200 ML BAG IVPB SCH ×2 (07:09→19:22)
[2018-07-05 07:34] LABS: EOS # 0.1 K/uL (0.0-0.7); MEAN CORPUSCULAR HGB CONC 34.5 g/dL (33.0-37.0); MONO # 0.4 K/uL (0.0-0.8); MONO % 3.5 % (0.0-10.0)
[2018-07-05 07:36] LABS: ALBUMIN 2.4 g/dL (3.5-5.0); ALT/SGPT 83 U/L (21-72); AST/SGOT 53 U/L (17-59); BLOOD UREA NITROGEN 21 mg/dL (9-20); CALCIUM 8.3 mg/dl (8.6-10.4); GFR NON-AFRICAN AMERICAN > 60
[2018-07-05 08:01] LABS: BASO % 0.1 % (0.0-2.0); EOS % 1.2 % (0.0-4.0); HEMOGLOBIN 11.1 g/dL (12.0-18.0); LYMPH # 2.1 K/uL (1.0-4.3); LYMPH % 19.8 % (20.0-40.0); MEAN CELL VOLUME 88.7 fL (80.0-94.0); MEAN CORPUSCULAR HEMOGLOBIN 30.6 pg (27.0-31.0); NEUT # 7.9 K/uL (1.8-7.0); NEUT % 75.4 % (50.0-75.0); RBC 3.64 Mil/uL (4.40-5.90); RED CELL DISTRIBUTION WIDTH 20.4 % (11.5-14.5); WHITE BLOOD COUNT 10.4 K/uL (4.8-10.8)
--- NOTE | 2018-07-05 09:48 | CP.PCM.PN ---
<Thomas Springer - Last Filed: 07/05/18 15:15> Subjective - Date & Time of Evaluation Date of Evaluation: 07/05/18 Time of Evaluation: 09:43 - Subjective Subjective: PGY-[address] Maddox Patient was seen and examined today at bedside. Per nursing, no acute events overnight. Patient is cursing throughout the encounter and continues to state that he would like to go home. He also reports that he wants food and that they haven't been bringing him anything. Patient refuses to answer questions and cooperate with medical staff. Denies headache, chest pain, shortness of breath, nausea, vomiting, diarrhea. Objective - Vital Signs/Intake and Output Vital Signs (last 24 hours): Temp Pulse Resp BP Pulse Ox 98.4 F 111 H 22 132/86 97 07/04/18 21:19 07/04/18 23:35 07/04/18 21:19 07/04/18 23:25 07/04/18 21:19 Intake and Output: 07/05/18 07/05/18 06:59 18:59 Intake Total 2500 Balance 2500 - Medications Medications: Current Medications Albuterol/Ipratropium (Duoneb 3 Mg/0.5 Mg (3 Ml) Ud) 3 ml INH RQ4 [facility] Last Admin: 07/05/18 03:37 Dose: Not Given Aripiprazole (Abilify) 5 mg PO HS [facility] Last Admin: 07/04/18 21:26 Dose: 5 mg Diltiazem HCl (Cardizem) 60 mg PO Q6H [facility] Last Admin: 07/04/18 05:13 Dose: Not Given Folic Acid (Folic Acid) 1 mg PO DAILY [facility] Last Admin: 07/04/18 10:43 Dose: 1 mg Guaifenesin (Robitussin) 200 mg PO Q4H PRN PRN Reason: Cough and congestion Last Admin: 06/30/18 22:01 Dose: 200 mg Haloperidol Lactate (Haldol) 2 mg IVP Q6H PRN PRN Reason: Agitation Last Admin: 06/29/18 21:58 Dose: 2 mg Piperacillin Sod/Tazobactam (Sod 3.375 gm/ Sodium Chloride) 100 mls @ 200 mls/ hr IVPB Q6H [facility] PRN Reason: Protocol Last Admin: 07/05/18 03:17 Dose: 200 mls/hr Sodium Chloride (Sodium Chloride 0.9%) 1,000 mls @ 70 mls/hr IV .[id number] [facility] Last Admin: 07/04/18 19:54 Dose: 70 mls/hr Vancomycin/Sodium Chloride (Vancomycin 1 Gm/Ns 200 Ml) 1 gm in 200 mls @ 166.6 mls/hr IVPB Q12H [facility] PRN Reason: Protocol Stop: 07/09/18 20:01 Last Admin: 07/05/18 07:09 Dose: 166.6 mls/hr Lactobacillus Acidophilus (Bacid Acidophilus) 1 cap PO BID [facility] Last Admin: 07/04/18 18:00 Dose: Not Given Levetiracetam (Keppra) 250 mg PO BID [facility] Last Admin: 07/04/18 18:00 Dose: Not Given Lisinopril (Zestril) 10 mg PO DAILY [facility] Last Admin: 07/04/18 11:34 Dose: Not Given Lorazepam (Ativan) 2 mg IVP Q6H PRN PRN Reason: Anxiety Last Admin: 07/04/18 04:24 Dose: 2 mg Multivitamins/Vitamin C (Multi-Delyn Liquid) 5 ml PO DAILY [facility] Last Admin: 07/04/18 10:42 Dose: 5 ml Mupirocin (Bactroban 2% Nasal) 0.25 gm KAYA BID [facility] Last Admin: 07/04/18 21:24 Dose: 0.25 gm Pantoprazole Sodium (Protonix Ec Tab) 40 mg PO Q12 [facility] Last Admin: 07/04/18 21:24 Dose: 40 mg Prednisone (Prednisone Tab) 20 mg PO ONCE ONE Stop: 07/05/18 10:01 Prednisone (Prednisone Tab) 10 mg PO ONCE ONE Stop: 07/06/18 10:01 Sucralfate (Carafate Oral Susp) 1 gm PO QID [facility] Last Admin: 07/04/18 21:24 Dose: 1 gm Thiamine HCl (Vitamin B1 Tab) 100 mg PO BID [facility] Last Admin: 07/04/18 18:00 Dose: Not Given - Labs Labs: 07/05/18 06:52 07/05/18 06:52 PT 13.6 SECONDS (9.7-12.2) H 06/20/18 10:09 INR 1.2 06/20/18 10:09 APTT 40 SECONDS (21-34) H 06/10/18 23:37 - Head Exam Head Exam: ATRAUMATIC, NORMAL INSPECTION - Eye Exam Eye Exam: EOMI Pupil Exam: NORMAL ACCOMODATION, PERRL - ENT Exam ENT Exam: Mucous Membranes Moist, Normal Exam - Respiratory Exam Respiratory Exam: Clear to Ausculation Bilateral, NORMAL BREATHING PATTERN - GI/Abdominal Exam GI & Abdominal Exam: Soft, Normal Bowel Sounds. absent: Tenderness - Extremities Exam Extremities Exam: Normal Capillary Refill. absent: Pedal Edema - Neurological Exam Neurological Exam: Altered, Awake. absent: Alert, Oriented x3 Additional comments: Pt at baseline mental state for this admission - Psychiatric Exam Psychiatric exam: Agitated - Skin Skin Exam: Dry, Intact, Normal Color, Warm Assessment and Plan - Assessment and Plan (Free Text) Assessment: 1). Cardiopulmonary Arrest Assessment/Plan * Cardiology Dr. Iglesias actionscript developer-->help appreciated * PEA s/p ROSC NSR * Echocardiogram (06/12/18): ejection fraction: 45-50%, left ventricular diastolic function is abnormal. left atrium size looks normal right atrium size looks normal. trace to mild tricupsid regurgitaton * EEG (06/15) shows an abnormal awake and drowsy EEG which is very slow, indicating encephalopathy or medication effect. * Prednisone Taper to finish on 07/06/18 2) Hypotension/Leukocytosis * 07/04 - OPTICIAN APPRENTICE CALLED for Hypotension * Patient was persistently hypotensive throughout the day 70s/50s - 98/68 * Pt placed in [place] position * Dr. Magdaleno evaluated the patient at bedside * -S/p 500cc NS bolus x3, currently receiving 250cc/hr NS * -Albumin 25% 50mL bolus x1 * -Reasses and potential transfer to ICU * -IV Zosyn 3.375 IVPB Q6 * ID (Dr. Sutton) * Zosyn 3.375 IVPB Q6 continued, Started Vancomycin 1 gm IVPB Q12 * Will check Vanc trough tomorrow 6:30am 30 min before next scheduled dose * Will continue to reassess the patient and adjust ABx * Pt remains on telemetry * Afebrile * BP meds remain held (Lisinopril and Cardizem) * IV fluids held * Repeat CXR (07/05) - "Chronic linear/curvilinear scarring left lung base, essentially unchanged. * White count resolved (10.4 from 34) * Platelets remain low (115) * UA unremarkable * F/u blood cultures * Haldol and Ativan had been held yesterday 2/2 hypotension --> * RESUMED: Haldol 1mg IVP q6 and Ativan 1mg IVP q6 prn for agitation 3). Hyponatremia Assessment/Plan * Nephrology Dr. Shafer on board-->help appreciated * Secondary to Alcohol Abuse * Received 3 NS boluses in ER * Seizure precautions * Normalized 4). Hypokalemia/Hypomagnesemia/Hypophosphotemia Assessment/Plan * Replete as needed 5). Metabolic Acidosis Assessment/Plan * Likely secondary to the Cadriopulmonary Arrest, GI bleed, Respiratory Distress * Resolved 6). Seizure Assessment/Plan * Neurology Dr. Richie Rubi on board-->help appreciated * Risk factor: heavy alcohol use and hyponatremia, hypomagnesium * Head CT (06/11/18): no acute intracranial abnormality. Chronic microvascular ischemic changes. sinus mucosal disease as above * He has a history of alcohol withdrawal seizures * Patient is off Precedex * Keppra 250 mg PO Q12H * EEG (06/15) shows an abnormal awake and drowsy EEG which is very slow, indicating encephalopathy or medication effect. * Psych reconsulted (Dr. Huerta) - determine if patient lacks capacity for medical decision making 7). Anemia likely secondary to GI Bleed History of Peptic Ulcer Disease Bleeding Ulcer Assessment/Plan * GI Dr. Ho on consult help appreciated * CT Chest/abdomen/pelvis (06/12/18): distended bowel suggesting an ileus. Markedly limited evaluation of the bowel without oral or intravenous contrast. Suggestion of prior Bilroth 2 procedure. Fluid filled dilatation of small bowel andproximal colon. Fluid filled dilatation of the small bowel and prozimal colon. Fluid in the descending colon without a sharp transition sozne. Portions of transverse colon were not well visualized. * Monitor H/H and transfuse as needed * Carafate 1g qid * S/P EGD POD: 2 anastomotic ulcers with visible vessel s/p APC and 5 clips, one ulcer with visible vessel and adherent clot was not intervened on due to adverse location--->If pt develops further bleeding will need IR and Surgery on board, difficult to treat endoscopically * Monitor H/H: received 2 units on 06/16/18 and is currently stable * Protonix 40mg PO BID * No NSAIDS and strong history of alcohol abuse * 07/04 - OPTICIAN APPRENTICE CALLED for Hypotension * Patient was persistently hypotensive throughout the day 70s/50s - 98/ * Pt placed in [place] position * Dr. Magdaleno evaluated the patient at bedside * -S/p 500cc NS bolus x3, currently receiving 250cc/hr NS * -Albumin 25% 50mL bolus x1 * -Reasses and potential transfer to ICU * -IV Zosyn 3.375 IVPB Q6 * 8). Hypocalcemia Assessment/Plan * Monitor 9). Acute Respiratory Failure Aspiration Pneumonia Assessment/Plan * CT Chest 06/11/18: thinned walled cavity in the right upper lobe which may be the sequelae of prior infection 5mm subpleural nodule within the anterior right middle lobe. Focal consolidation within the inferior right middle lobe. Focal consolidation within the right lower lobe. Patchy ground glass opacities in both lungs which and nonspecific but may secondary to alectasis versus contusion versus pneumonitis. * Chest xray (06/23/18): small right pleural effusion. left basilar linear scar/ subsegmental atelectasis. no acute infiltrate. * Extubated 06/12/18 and Re-intubated on 06/14/18 and extubated 06/17/18 * Patient has productive cough * Robotussin 200mg POq4H PRN cough and congestion * Chest physiotherapy * Tracheal Aspirate 06/16/18 showed Yeast and was treated with Fluconazole 100 IV and was discontinued once repeat Sputum 06/22/18 showed Klebsiella which is sensitive to Ciprofloxacin * Was treated with Meropenem 1gram IV Q8H and Vancomycin 1 gram IV Q12H and completed Cipro 500 mg PO 2x/day through 07/02/18 10) Open Wounds on Sacrum Stage II Assessment/Plan * Turn [id number] * Treated with MediHoney with Optifoam Dressing * Wound care note: (06/22/18) WOUND CARE NOTE-Patient re-assessed; found to have improving MASD, Moisture associated skin damage to sacral/coccyx regions. Skin continues with blanchable erythema; erosions resolving. recommending to continue aloevesta protective ointment to entire sacral/coccyx regions 3x/day and prn for incontinent episodes. Must reposition this patient frequently to optimize offloading. Will continue to follow. 11) Bilateral Anterior Rib and Sternal Fractures Assessment/Plan * Noted on CT Chest * Secondary to CPR given cardiopulmonary arrest 12) Systolic and Diastolic Heart Failure * Echocardiogram 06/12/18 shows EF at 45-50%, left ventricular diastolic function abnormal with Grade I abnormal relaxation pattern, trace to mild ticuspid regurgitation * Lisinopril 10 mg PO 1x/day * Cardizem 60mg PO Q6H * Aspirin contraindication secondary to bleeding ulcer 13) Urinary tract infection-->resolved * Treated with Zosyn 3.375g IV Q8H * Repeat urine culture 06/13/18 showed NO growth 14) Bacteremia-->resolved * Repeat blood culture 06/12/18 is negative at 5 days 15) 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) * Hx heavy use * Off Precedex * Off Librium 25 mg PO Q8H 06/22/18 * Abilify 5 mg PO 1x/day * MVI PO 1x/day * Thiamine 100mg PO BID * Folic acid 1mg PO daily * Abdominal US report available in the EMR: limited but liver changes 16) Prophylactic measure * Protonix 40 mg PO Q12H * Lactobacillus 1 cap PO 2x/day * Chemical anticoagulation held secondary to GI bleed * Haldol 2 mg IV Q6H PRN Agitation * Turn [id number] * Aspiration precautions * Seizure precautions * Wound care on board * PT/OT eval <Moraima Toure V - Last Filed: 07/05/18 17:11> Objective - Vital Signs/Intake and Output Vital Signs (last 24 hours): Temp Pulse Resp BP Pulse Ox 98.0 F 105 H 20 126/79 98 07/05/18 08:00 07/05/18 08:00 07/05/18 08:00 07/05/18 08:00 07/05/18 08:00 Intake and Output: 07/05/18 07/05/18 06:59 18:59 Intake Total 2500 Balance 2500 - Medications Medications: Current Medications Albuterol/Ipratropium (Duoneb 3 Mg/0.5 Mg (3 Ml) Ud) 3 ml INH RQ4 [facility] Last Admin: 07/05/18 16:05 Dose: Not Given Aripiprazole (Abilify) 5 mg PO HS [facility] Last Admin: 07/04/18 21:26 Dose: 5 mg Diltiazem HCl (Cardizem) 60 mg PO Q6H [facility] Last Admin: 07/04/18 05:13 Dose: Not Given Folic Acid (Folic Acid) 1 mg PO DAILY [facility] Last Admin: 07/05/18 11:00 Dose: 1 mg Guaifenesin (Robitussin) 200 mg PO Q4H PRN PRN Reason: Cough and congestion Last Admin: 06/30/18 22:01 Dose: 200 mg Haloperidol Lactate (Haldol) 1 mg IVP Q6H PRN PRN Reason: Agitation Last Admin: 07/05/18 12:00 Dose: 1 mg Piperacillin Sod/Tazobactam (Sod 3.375 gm/ Sodium Chloride) 100 mls @ 200 mls/ hr IVPB Q6H [facility] PRN Reason: Protocol Last Admin: 07/05/18 16:39 Dose: 200 mls/hr Vancomycin/Sodium Chloride (Vancomycin 1 Gm/Ns 200 Ml) 1 gm in 200 mls @ 166.6 mls/hr IVPB Q12H [facility] PRN Reason: Protocol Stop: 07/09/18 20:01 Last Admin: 07/05/18 07:09 Dose: 166.6 mls/hr Lactobacillus Acidophilus (Bacid Acidophilus) 1 cap PO BID [facility] Last Admin: 07/05/18 10:35 Dose: 1 cap Levetiracetam (Keppra) 250 mg PO BID [facility] Last Admin: 07/05/18 10:30 Dose: 250 mg Lisinopril (Zestril) 10 mg PO DAILY [facility] Last Admin: 07/04/18 11:34 Dose: Not Given Lorazepam (Ativan) 1 mg IVP Q6H PRN PRN Reason: Agitation Last Admin: 07/05/18 12:01 Dose: 1 mg Multivitamins/Vitamin C (Multi-Delyn Liquid) 5 ml PO DAILY [facility] Last Admin: 07/05/18 10:30 Dose: 5 ml Mupirocin (Bactroban 2% Nasal) 0.25 gm KAYA BID [facility] Last Admin: 07/05/18 10:30 Dose: 0.25 gm Pantoprazole Sodium (Protonix Ec Tab) 40 mg PO Q12 [facility] Last Admin: 07/05/18 12:30 Dose: 40 mg Prednisone (Prednisone Tab) 10 mg PO ONCE ONE Stop: 07/06/18 10:01 Sucralfate (Carafate Oral Susp) 1 gm PO QID [facility] Last Admin: 07/05/18 14:22 Dose: 1 gm Thiamine HCl (Vitamin B1 Tab) 100 mg PO BID [facility] Last Admin: 07/05/18 10:30 Dose: 100 mg - Labs Labs: 07/05/18 11:41 07/05/18 06:52 PT 13.6 SECONDS (9.7-12.2) H 06/20/18 10:09 INR 1.2 06/20/18 10:09 APTT 40 SECONDS (21-34) H 06/10/18 23:37 Assessment and Plan (1) Cardiac arrest Status: Acute (2) Respiratory failure Status: Acute (3) Seizure Status: Acute (4) GI bleeding Status: Acute (5) Hyponatremia Status: Acute (6) Aspiration pneumonia Status: Acute (7) Encephalopathy Status: Acute (8) Prophylactic measure Status: Acute Attending/Attestation - Attestation I have personally seen and examined this patient.: Yes I have fully participated in the care of the patient.: Yes I have reviewed all pertinent clinical information, including history, physical exam and plan: Yes Notes (Text): Patient seen, examined, and case discussed with biomedical engineering professor. Patient seen this morning. Patient is very awake, verbally abusive towards, proceeds to curse at us. I have personally been called "cunt" and told to "go fuck myself" etc jargon of this nature. Patient's mother not present at bedside. Patient does not remember events from yesterday. He does not remember his mother was here yesterday. Patient noted to trying to put his mittens off. patient's one to one is present at bedside. Discussed with pulmonary, to continue nebulizer treatments to relieve congestion , no acute changes noted in chest xray. We will need to f/u cultures ordered on 07/04/18. Patient had mild rise in procalcitonin. Patient is presently on Zosyn and Vancomycin IV per ID. Patient's white count has normalized. Patient sent to finish last dose of prednisone tomorrow. Patient given his level of agitation and presently hemodynamically stable; will restart his Haldol 1mg IV Q6H PRN agitation and his Ativan 1mg IV Q6H PRN agitation. Assessment/Plan 1). Cardiopulmonary Arrest Assessment/Plan * Cardiology Dr. Iglesias actionscript developer-->help appreciated * PEA s/p ROSC NSR * Echocardiogram (06/12/18): ejection fraction: 45-50%, left ventricular diastolic function is abnormal. left atrium size looks normal right atrium size looks normal. trace to mild tricupsid regurgitaton * EEG (06/15) shows an abnormal awake and drowsy EEG which is very slow, indicating encephalopathy or medication effect. Recommend repeat EEG off sedation * patient is on steroid taper * Prednisone 20mg PO once today * Prednisone 10mg one 07/06/18 2). Hyponatremia-->resolved Assessment/Plan 3). Hypokalemia/Hypomagnesemia/Hypophosphotemia Assessment/Plan * Replete as needed 4). Metabolic Acidosis Assessment/Plan * Likely secondary to the Cadriopulmonary Arrest, GI bleed, Respiratory Distress * Resolved 5). Seizure Assessment/Plan * Neurology Dr. Richie Rubi on board-->help appreciated * Risk factor: heavy alcohol use and hyponatremia, hypomagnesium * Head CT (06/11/18): no acute intracranial abnormality. Chronic microvascular ischemic changes. sinus mucosal disease as above * He has a history of alcohol withdrawal seizures * Keppra 250 mg PO Q12H * Seizure precautions 6). Anemia likely secondary to GI Bleed History of Peptic Ulcer Disease Bleeding Ulcer Assessment/Plan * GI Dr. Ho on consult help appreciated * CT Chest/abdomen/pelvis (06/12/18): distended bowel suggesting an ileus. Markedly limited evaluation of the bowel without oral or intravenous contrast. Suggestion of prior Bilroth 2 procedure. Fluid filled dilatation of small bowel andproximal colon. Fluid filled dilatation of the small bowel and prozimal colon. Fluid in the descending colon without a sharp transition sozne. Portions of transverse colon were not well visualized. * Monitor H/H and transfuse as needed * Carafate 1g qid * S/P EGD POD: 2 anastomotic ulcers with visible vessel s/p APC and 5 clips, one ulcer with visible vessel and adherent clot was not intervened on due to adverse location--->If pt develops further bleeding will need IR and Surgery on board, difficult to treat endoscopically * Monitor H/H: received 2 units on 06/16/18 and is currently stable * protonix 40mg PO BID * No NSAIDS and strong history of alcohol abuse * Patient's H/H remains stable; continue to monitor 7). Hypocalcemia Assessment/Plan * Monitor 8). Acute Respiratory Failure Aspiration Pneumonia Assessment/Plan * CT Chest 06/11/18: thinned walled cavity in the right upper lobe which may be the sequelae of prior infection 5mm subpleural nodule within the anterior right middle lobe. Focal consolidation within the inferior right middle lobe. Focal consolidation within the right lower lobe. Patchy ground glass opacities in both lungs which and nonspecific but may secondary to alectasis versus contusion versus pneumonitis. * Chest xray (06/23/18): small right pleural effusion. left basilar linear scar/ subsegmental atelectasis. no acute infiltrate. * Extubated 06/12/18 and Re-intubated on 06/14/18 and extubated 06/17/18 * Patient has productive cough. * Robotussin 200mg POq4H PRN cough and congestion * Chest physiotherapy * patient is on steroid taper * Prednisone 20mg PO once today * Prednisone 10mg one * Aspiration precautions 9) Open Wounds on Sacrum Stage II Assessment/Plan * Turn [id number] * MediHoney with Optifoam Dressing * Latest wound care note: (06/22/18) WOUND CARE NOTE-Patient re-assessed; found to have improving MASD, Moisture associated skin damage to sacral/coccyx regions. Skin continues with blanchable erythema; erosions resolving. recommending to continue aloevesta protective ointment to entire sacral/coccyx regions 3x/day and prn for incontinent episodes. Must reposition this patient frequently to optimize offloading. Will continue to follow. 10) Bilateral Anterior Rib and Sternal Fractures Assessment/Plan * Noted on CT Chest * Secondary to CPR given cardiopulmonary arrest 11) Systolic and Diastolic Heart Failure Assessment/Plan * Echocardiogram 06/12/18 shows EF at 45-50%, left ventricular diastolic function abnormal with Grade I abnormal relaxation pattern, trace to mild ticuspid regurgitation * hold Lisinopril 10 mg PO 1x/day given hypotension * hold Cardizem 60mg PO Q6H given hypotension * Aspirin contraindication secondary to bleeding ulcer 12) Urinary tract infection-->resolved * Zosyn 3.375g IV Q8H (active since 06/11/18) * Repeat urine culture 06/13/18 showed NO growth 13) Bacteremia-->resolved * Repeat blood culture 06/12/18 is negative at 5 days 14) Alcoholism Alcoholic Liver Disease Assessment/Plan * Hx heavy use * Off Precedex * off Librium 25 mg PO Q8H 06/22/18 * MVI PO 1x/day * Thiamine 100mg PO BID * Folic acid 1mg PO daily * MVI 5 ml PO daily * Abdominal US report available in the EMR; limited but liver changes 15) Leukocytosis Assessment/Plan * patient has elevated white count yesterday * Normalized today * patient is on predisone taper from Solumedrol * patient is on steroid taper * Prednisone 20mg PO once today * Prednisone 10mg once tomorrow * However he remains at high risk for aspiration pneumonia; no reports of diarrhea per staff * Blood culture (07/04/18): no growth * procalcitonin: 0.83 * Urine culture (07/04/18): pending * Zosyn 3.375 IV Q6H (active since 07/04/18) * Vanocmycin 1gm IVPB Q12H (active since 07/04/18) 16) Hypotension Assessment/Plan * held Cardizem and Lisinopril 07/04/18 for hypotension noted 07/04/18 * Blood pressure improved with IV fluids 17) Prophylactic measure * Protonix 40 mg PO Q12H * Lactobacillus 1 cap PO 2x/day * Chemical anticoagulation held secondary to GI bleed * Turn [id number] * Aspiration precautions * Seizure precautions * Wound care on board * PT/OT eval * Mother and Sister Jenifer ([phone]) are decision-makers for the patient. * Plan is for intermediate * Did speak with case management today that we will need to f/u cultures from
--- NOTE | 2018-07-05 09:50 | RAD ---
Date of service: 07/05/2018 HISTORY: cough COMPARISON: No prior. FINDINGS: LUNGS: Chronic linear/curvilinear scarring left lung base essentially unchanged. PLEURA: No significant pleural effusion identified, no pneumothorax apparent. CARDIOVASCULAR: Normal. OSSEOUS STRUCTURES: Re- demonstrated are ORIF changes left humeral head and neck VISUALIZED UPPER ABDOMEN: Normal. OTHER FINDINGS: None. IMPRESSION: Chronic linear/curvilinear scarring left lung base essentially unchanged.
[2018-07-05] MEDS: Multiple Vitamins Oral Solution PO SCH (10:30)
[2018-07-05] MEDS: Mupirocin 2% Ointment (NASAL) NAS SCH ×2 (10:30→17:37)
[2018-07-05] MEDS: Sucralfate 1 gm/10 ml Oral Susp UD PO SCH ×4 (10:30→21:59)
[2018-07-05] MEDS: Lactobacillus Acidophilus 500 MU Cap PO SCH ×2 (10:35→17:37)
[2018-07-05 11:54] LABS: BASO % 0.3 % (0.0-2.0); EOS # 0.1 K/uL (0.0-0.7); EOS % 1.1 % (0.0-4.0); HEMOGLOBIN 11.3 g/dL (12.0-18.0); LYMPH # 2.5 K/uL (1.0-4.3); LYMPH % 21.7 % (20.0-40.0); MEAN CELL VOLUME 88.6 fL (80.0-94.0); MEAN CORPUSCULAR HEMOGLOBIN 30.5 pg (27.0-31.0); MEAN CORPUSCULAR HGB CONC 34.4 g/dL (33.0-37.0); MEAN PLATELET VOLUME 7.5 fL (7.2-11.7); MONO # 0.4 K/uL (0.0-0.8); MONO % 3.5 % (0.0-10.0); NEUT # 8.4 K/uL (1.8-7.0); NEUT % 73.4 % (50.0-75.0); RBC 3.69 Mil/uL (4.40-5.90); RED CELL DISTRIBUTION WIDTH 20.4 % (11.5-14.5); WHITE BLOOD COUNT 11.5 K/uL (4.8-10.8)
[2018-07-05] MEDS: Pantoprazole 40 mg EC Tab PO SCH ×2 (12:30→21:59)
--- NOTE | 2018-07-05 14:45 | CP.PCM.PN ---
Subjective - Date & Time of Evaluation Date of Evaluation: 07/05/18 Time of Evaluation: 14:15 - Subjective Subjective: dictated Objective - Vital Signs/Intake and Output Vital Signs (last 24 hours): Temp Pulse Resp BP Pulse Ox 98.4 F 111 H 22 132/86 97 07/04/18 21:19 07/04/18 23:35 07/04/18 21:19 07/04/18 23:25 07/04/18 21:19 Intake and Output: 07/05/18 07/05/18 06:59 18:59 Intake Total 2500 Balance 2500 - Medications Medications: Current Medications Albuterol/Ipratropium (Duoneb 3 Mg/0.5 Mg (3 Ml) Ud) 3 ml INH RQ4 [facility] Last Admin: 07/05/18 03:37 Dose: Not Given Aripiprazole (Abilify) 5 mg PO HS [facility] Last Admin: 07/04/18 21:26 Dose: 5 mg Diltiazem HCl (Cardizem) 60 mg PO Q6H [facility] Last Admin: 07/04/18 05:13 Dose: Not Given Folic Acid (Folic Acid) 1 mg PO DAILY [facility] Last Admin: 07/05/18 11:00 Dose: 1 mg Guaifenesin (Robitussin) 200 mg PO Q4H PRN PRN Reason: Cough and congestion Last Admin: 06/30/18 22:01 Dose: 200 mg Haloperidol Lactate (Haldol) 1 mg IVP Q6H PRN PRN Reason: Agitation Last Admin: 07/05/18 12:00 Dose: 1 mg Piperacillin Sod/Tazobactam (Sod 3.375 gm/ Sodium Chloride) 100 mls @ 200 mls/ hr IVPB Q6H [facility] PRN Reason: Protocol Last Admin: 07/05/18 11:00 Dose: 200 mls/hr Vancomycin/Sodium Chloride (Vancomycin 1 Gm/Ns 200 Ml) 1 gm in 200 mls @ 166.6 mls/hr IVPB Q12H [facility] PRN Reason: Protocol Stop: 07/09/18 20:01 Last Admin: 07/05/18 07:09 Dose: 166.6 mls/hr Lactobacillus Acidophilus (Bacid Acidophilus) 1 cap PO BID [facility] Last Admin: 07/05/18 10:35 Dose: 1 cap Levetiracetam (Keppra) 250 mg PO BID [facility] Last Admin: 07/05/18 10:30 Dose: 250 mg Lisinopril (Zestril) 10 mg PO DAILY [facility] Last Admin: 07/04/18 11:34 Dose: Not Given Lorazepam (Ativan) 1 mg IVP Q6H PRN PRN Reason: Agitation Last Admin: 07/05/18 12:01 Dose: 1 mg Multivitamins/Vitamin C (Multi-Delyn Liquid) 5 ml PO DAILY [facility] Last Admin: 07/05/18 10:30 Dose: 5 ml Mupirocin (Bactroban 2% Nasal) 0.25 gm KAYA BID [facility] Last Admin: 07/05/18 10:30 Dose: 0.25 gm Pantoprazole Sodium (Protonix Ec Tab) 40 mg PO Q12 [facility] Last Admin: 07/05/18 12:30 Dose: 40 mg Prednisone (Prednisone Tab) 10 mg PO ONCE ONE Stop: 07/06/18 10:01 Sucralfate (Carafate Oral Susp) 1 gm PO QID [facility] Last Admin: 07/05/18 14:22 Dose: 1 gm Thiamine HCl (Vitamin B1 Tab) 100 mg PO BID [facility] Last Admin: 07/05/18 10:30 Dose: 100 mg - Labs Labs: 07/05/18 11:41 07/05/18 06:52 PT 13.6 SECONDS (9.7-12.2) H 06/20/18 10:09 INR 1.2 06/20/18 10:09 APTT 40 SECONDS (21-34) H 06/10/18 23:37
--- NOTE | 2018-07-06 00:30 | PN ---
DATE: 07/05/2018 SUBJECTIVE: Doroteo Clancy was awake and alert this morning according to the attending and he had today because of hypotension and we have placed him on IV antibiotics. He remains drowsy at this time as he received Haldol and he is on one-to-one. He was aggressive and he was throwing things on the doctors according to the one-to-one watching lady. PHYSICAL EXAMINATION: VITAL SIGNS: T-max is 98.5, heart rate of 102, blood pressure 105/66, respirations are 20. GENERAL: He gives verbal abuse and sometimes gets agitated. HEENT: Head is atraumatic. NECK: Supple. LUNGS: Have occasional crackles and rales. CHEST: He has flail chest. HEART: S1, S2 are tachycardic. ABDOMEN: Soft, nontender. No guarding. No rigidity present. EXTREMITIES: Have no edema, clubbing or cyanosis. LABORATORY DATA: At this time, his white count is now better. Yesterday, he had 34,000 and today it has decreased and septic workup is pending at this time and we will follow that tomorrow. ASSESSMENT AND PLAN: The patient came in with pneumonia and was restarted on IV antibiotics. He did have Klebsiella at one point. Geno Sutton MD
[2018-07-06] MEDS: Albuterol-Ipratrop 3 mg / 0.5 (3 ml) UD INH SCH ×7 (00:56→23:37)
[2018-07-06] MEDS: Piperacillin/Tazobact 3.375 GM in Sodium Chloride 100 ML IVPB SCH ×4 (04:00→23:03)
[2018-07-06 08:20] LABS: ALB/GLOB RATIO 1.1 (1.0-2.1); ALBUMIN 2.6 g/dL (3.5-5.0); ALT/SGPT 64 U/L (21-72); AST/SGOT 42 U/L (17-59); BLOOD UREA NITROGEN 18 mg/dL (9-20); CALCIUM 8.5 mg/dl (8.6-10.4); GFR NON-AFRICAN AMERICAN > 60
[2018-07-06 08:22] LABS: BASO % 0.1 % (0.0-2.0); EOS # 0.2 K/uL (0.0-0.7); EOS % 1.7 % (0.0-4.0); HEMOGLOBIN 11.3 g/dL (12.0-18.0); LYMPH # 2.4 K/uL (1.0-4.3); MEAN CELL VOLUME 88.2 fL (80.0-94.0); MEAN CORPUSCULAR HEMOGLOBIN 30.5 pg (27.0-31.0); MEAN CORPUSCULAR HGB CONC 34.6 g/dL (33.0-37.0); MEAN PLATELET VOLUME 7.7 fL (7.2-11.7); MONO # 0.4 K/uL (0.0-0.8); MONO % 3.7 % (0.0-10.0); NEUT # 7.1 K/uL (1.8-7.0); NEUT % 70.5 % (50.0-75.0); RBC 3.7 Mil/uL (4.40-5.90); RED CELL DISTRIBUTION WIDTH 20.1 % (11.5-14.5); WHITE BLOOD COUNT 10.1 K/uL (4.8-10.8)
[2018-07-06] MEDS: Lactobacillus Acidophilus 500 MU Cap PO SCH ×2 (09:36→17:38)
[2018-07-06] MEDS: Mupirocin 2% Ointment (NASAL) NAS SCH ×2 (09:36→17:38)
[2018-07-06] MEDS: Multiple Vitamins Oral Solution PO SCH (09:37)
[2018-07-06] MEDS: Pantoprazole 40 mg EC Tab PO SCH ×2 (09:37→21:59)
[2018-07-06] MEDS: Sucralfate 1 gm/10 ml Oral Susp UD PO SCH ×4 (09:37→21:54)
[2018-07-06] MEDS ORDERED: Potassium Chloride 20 mEq ER Tab PO STA (12:49)
[2018-07-06] MEDS: Magnesium Sulfate 1 gm in D5W 1 GM/100 ML BAG IVPB SCH ×2 (13:05→14:31)
--- NOTE | 2018-07-06 15:37 | CP.PCM.PN ---
<Thomas Springer - Last Filed: 07/06/18 15:24> Subjective - Date & Time of Evaluation Date of Evaluation: 07/06/18 Time of Evaluation: 15:39 - Subjective Subjective: PGY-[address] Toure Patient was seen and examined today at bedside. Per nursing, no acute changes overnight. Patient refuses to cooperate with questions and exams. Admits to headache. Denies chest pain, shortness of breath, nausea, vomiting, diarrhea. Objective - Vital Signs/Intake and Output Vital Signs (last 24 hours): Temp Pulse Resp BP Pulse Ox 97.4 F L 121 H 22 138/87 98 07/06/18 08:00 07/06/18 08:00 07/06/18 08:00 07/06/18 08:00 07/06/18 08:00 Intake and Output: 07/06/18 07/06/18 06:59 18:59 Intake Total 900 Output Total 600 Balance -600 900 - Medications Medications: Current Medications Albuterol/Ipratropium (Duoneb 3 Mg/0.5 Mg (3 Ml) Ud) 3 ml INH RQ4 [facility] Last Admin: 07/06/18 11:16 Dose: Not Given Aripiprazole (Abilify) 5 mg PO HS [facility] Last Admin: 07/05/18 21:59 Dose: 5 mg Diltiazem HCl (Cardizem) 30 mg PO Q6 [facility] Folic Acid (Folic Acid) 1 mg PO DAILY [facility] Last Admin: 07/06/18 09:37 Dose: 1 mg Guaifenesin (Robitussin) 200 mg PO Q4H PRN PRN Reason: Cough and congestion Last Admin: 06/30/18 22:01 Dose: 200 mg Haloperidol Lactate (Haldol) 1 mg IVP Q6H PRN PRN Reason: Agitation Last Admin: 07/05/18 12:00 Dose: 1 mg Piperacillin Sod/Tazobactam (Sod 3.375 gm/ Sodium Chloride) 100 mls @ 200 mls/ hr IVPB Q6H [facility] PRN Reason: Protocol Last Admin: 07/06/18 09:35 Dose: 200 mls/hr Vancomycin/Sodium Chloride (Vancomycin 1 Gm/Ns 200 Ml) 1 gm in 200 mls @ 166.6 mls/hr IVPB Q12H [facility] PRN Reason: Protocol Stop: 07/09/18 20:01 Last Admin: 07/05/18 19:22 Dose: 166.6 mls/hr Lactobacillus Acidophilus (Bacid Acidophilus) 1 cap PO BID [facility] Last Admin: 07/06/18 09:36 Dose: 1 cap Levetiracetam (Keppra) 250 mg PO BID [facility] Last Admin: 07/06/18 09:37 Dose: 250 mg Lisinopril (Zestril) 10 mg PO DAILY [facility] Last Admin: 07/04/18 11:34 Dose: Not Given Lorazepam (Ativan) 1 mg IVP Q6H PRN PRN Reason: Agitation Last Admin: 07/06/18 07:54 Dose: 1 mg Multivitamins/Vitamin C (Multi-Delyn Liquid) 5 ml PO DAILY [facility] Last Admin: 07/06/18 09:37 Dose: 5 ml Mupirocin (Bactroban 2% Nasal) 0.25 gm KAYA BID [facility] Last Admin: 07/06/18 09:36 Dose: 0.25 gm Pantoprazole Sodium (Protonix Ec Tab) 40 mg PO Q12 [facility] Last Admin: 07/06/18 09:37 Dose: 40 mg Sucralfate (Carafate Oral Susp) 1 gm PO QID [facility] Last Admin: 07/06/18 13:05 Dose: 1 gm Thiamine HCl (Vitamin B1 Tab) 100 mg PO BID [facility] Last Admin: 07/06/18 09:37 Dose: 100 mg - Labs Labs: 07/06/18 07:46 07/06/18 07:46 PT 13.6 SECONDS (9.7-12.2) H 06/20/18 10:09 INR 1.2 06/20/18 10:09 APTT 40 SECONDS (21-34) H 06/10/18 23:37 - Constitutional Appears: Non-toxic, No Acute Distress, Unkempt, Older Than Stated Age, Agitated , Confused, Cachectic, Chronically Ill - Head Exam Head Exam: ATRAUMATIC, NORMAL INSPECTION - Eye Exam Eye Exam: EOMI, Normal appearance - Respiratory Exam Respiratory Exam: Clear to Ausculation Bilateral, NORMAL BREATHING PATTERN - GI/Abdominal Exam GI & Abdominal Exam: Soft, Normal Bowel Sounds. absent: Tenderness - Extremities Exam Extremities Exam: absent: Pedal Edema, Tenderness - Neurological Exam Neurological Exam: Awake. absent: Alert, Oriented x3 Additional comments: At baseline mental status - Skin Skin Exam: Dry, Intact, Normal Color Assessment and Plan - Assessment and Plan (Free Text) Assessment: 1). Cardiopulmonary Arrest Assessment/Plan * Cardiology Dr. Iglesias manager credit collections-->help appreciated * PEA s/p ROSC NSR * Echocardiogram (06/12/18): ejection fraction: 45-50%, left ventricular diastolic function is abnormal. left atrium size looks normal right atrium size looks normal. trace to mild tricupsid regurgitaton * EEG (06/15) shows an abnormal awake and drowsy EEG which is very slow, indicating encephalopathy or medication effect. * Prednisone taper completed today * On telemetry 2) Hypotension/Leukocytosis * 07/04 - PRIMER INSERTING MACHINE ADJUSTER CALLED for Hypotension * Patient was persistently hypotensive throughout the day 70s/50s - * Pt placed in [place] position * Dr. Magdaleno evaluated the patient at bedside * -S/p 500cc NS bolus x3, currently receiving 250cc/hr NS * -Albumin 25% 50mL bolus x1 * -Reasses and potential transfer to ICU * -IV Zosyn 3.375 IVPB Q6 * ID (Dr. Sutton) * Zosyn 3.375 IVPB Q6 continued, Vancomycin discontinued * Vanc trough 30 min before last dose 07/06 - 21.5 * F/u random vancomycin level * Will continue to reassess the patient and adjust ABx * BP has remained stable at 100s/70s * Pt remains on telemetry * Afebrile * BP Meds * Lisinopril remains held * Cardizem restarted at 30 PO Q6 * IV fluids held * Repeat CXR (07/05) - "Chronic linear/curvilinear scarring left lung base, essentially unchanged. * White count resolved (10.4 from 34) * Platelets remain low (117) - possibly 2/2 Zosyn? * UA unremarkable * Blood cultures negative at 24 hours * Haldol and Ativan had been held yesterday 2/2 hypotension --> * RESUMED: Haldol 1mg IVP q6 and Ativan 1mg IVP q6 prn for agitation * Procalcitonin .83 on 07/04 --> f/u procal tomorrow morning 3). Hyponatremia Assessment/Plan * Nephrology Dr. Mughni on board-->help appreciated * Secondary to Alcohol Abuse * Received 3 NS boluses in ER * Seizure precautions * Normalized 4). Hypokalemia/Hypomagnesemia/Hypophosphotemia Assessment/Plan * Replete as needed 5). Metabolic Acidosis Assessment/Plan * Likely secondary to the Cadriopulmonary Arrest, GI bleed, Respiratory Distress * Resolved 6). Seizure Assessment/Plan * Neurology Dr. Richie Rubi on board-->help appreciated * Risk factor: heavy alcohol use and hyponatremia, hypomagnesium * Head CT (06/11/18): no acute intracranial abnormality. Chronic microvascular ischemic changes. sinus mucosal disease as above * He has a history of alcohol withdrawal seizures * Patient is off Precedex * Keppra 250 mg PO Q12H * EEG (06/15) shows an abnormal awake and drowsy EEG which is very slow, indicating encephalopathy or medication effect. * Psych reconsulted (Dr. Huerta) - Pt lacks capacity to make medical decisions for himself 7). Anemia likely secondary to GI Bleed History of Peptic Ulcer Disease Bleeding Ulcer Assessment/Plan * GI Dr. Ho on consult help appreciated * CT Chest/abdomen/pelvis (06/12/18): distended bowel suggesting an ileus. Markedly limited evaluation of the bowel without oral or intravenous contrast. Suggestion of prior Bilroth 2 procedure. Fluid filled dilatation of small bowel andproximal colon. Fluid filled dilatation of the small bowel and prozimal colon. Fluid in the descending colon without a sharp transition sozne. Portions of transverse colon were not well visualized. * Monitor H/H and transfuse as needed * Carafate 1g qid * S/P EGD POD: 2 anastomotic ulcers with visible vessel s/p APC and 5 clips, one ulcer with visible vessel and adherent clot was not intervened on due to adverse location--->If pt develops further bleeding will need IR and Surgery on board, difficult to treat endoscopically * Monitor H/H: received 2 units on 06/16/18 and is currently stable * Protonix 40mg PO BID * No NSAIDS and strong history of alcohol abuse * 07/04 - PRIM[employer] INSERTING MACHINE ADJUSTER CALLED for Hypotension * Patient was persistently hypotensive throughout the day 70s/50s - 98/68 * Pt placed in [place] position * Dr. Magdaleno evaluated the patient at bedside * -S/p 500cc NS bolus x3, currently receiving 250cc/hr NS * -Albumin 25% 50mL bolus x1 * -Reasses and potential transfer to ICU * -IV Zosyn 3.375 IVPB Q6 * Thrombocytopenia - has been consistently low in the 110s (117 today - 07/06) -- > possible 2/2 Zosyn? 8). Hypocalcemia Assessment/Plan * Monitor 9). Acute Respiratory Failure Aspiration Pneumonia Assessment/Plan * CT Chest 06/11/18: thinned walled cavity in the right upper lobe which may be the sequelae of prior infection 5mm subpleural nodule within the anterior right middle lobe. Focal consolidation within the inferior right middle lobe. Focal consolidation within the right lower lobe. Patchy ground glass opacities in both lungs which and nonspecific but may secondary to alectasis versus contusion versus pneumonitis. * Chest xray (06/23/18): small right pleural effusion. left basilar linear scar/ subsegmental atelectasis. no acute infiltrate. * Extubated 06/12/18 and Re-intubated on 06/14/18 and extubated 06/17/18 * Patient has productive cough * Robotussin 200mg POq4H PRN cough and congestion * Chest physiotherapy * Tracheal Aspirate 06/16/18 showed Yeast and was treated with Fluconazole 100 IV and was discontinued once repeat Sputum 06/22/18 showed Klebsiella which is sensitive to Ciprofloxacin * Was treated with Meropenem 1gram IV Q8H and Vancomycin 1 gram IV Q12H and completed Cipro 500 mg PO 2x/day through 07/02/18 10) Open Wounds on Sacrum Stage II Assessment/Plan * Turn [id number] * Treated with [facility] with Optifoam Dressing * Wound care note: (06/22/18) WOUND CARE NOTE-Patient re-assessed; found to have improving MASD, Moisture associated skin damage to sacral/coccyx regions. Skin continues with blanchable erythema; erosions resolving. recommending to continue aloevesta protective ointment to entire sacral/coccyx regions 3x/day and prn for incontinent episodes. Must reposition this patient frequently to optimize offloading. Will continue to follow. 11) Bilateral Anterior Rib and Sternal Fractures Assessment/Plan * Noted on CT Chest * Secondary to CPR given cardiopulmonary arrest 12) Systolic and Diastolic Heart Failure * Echocardiogram 06/12/18 shows EF at 45-50%, left ventricular diastolic function abnormal with Grade I abnormal relaxation pattern, trace to mild ticuspid regurgitation * Lisinopril 10 mg PO 1x/day * Cardizem 30mg PO Q6H * Aspirin contraindication secondary to bleeding ulcer 13) Urinary tract infection-->resolved * Treated with Zosyn 3.375g IV Q8H * Repeat urine culture 06/13/18 showed NO growth 14) Bacteremia-->resolved * Repeat blood culture 06/12/18 is negative at 5 days 15) 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 Tejal Springer PGY-1 <Moraima Toure V - Last Filed: 07/06/18 20:24> Objective - Vital Signs/Intake and Output Vital Signs (last 24 hours): Temp Pulse Resp BP Pulse Ox 98.8 F 127 H 20 114/80 95 07/06/18 15:00 07/06/18 15:00 07/06/18 15:00 07/06/18 15:00 07/06/18 15:00 Intake and Output: 07/06/18 07/07/18 18:59 06:59 Intake Total 900 Balance 900 - Medications Medications: Current Medications Albuterol/Ipratropium (Duoneb 3 Mg/0.5 Mg (3 Ml) Ud) 3 ml INH RQ4 [facility] Last Admin: 07/06/18 19:42 Dose: Not Given Aripiprazole (Abilify) 5 mg PO HS [facility] Last Admin: 07/05/18 21:59 Dose: 5 mg Diltiazem HCl (Cardizem) 30 mg PO Q6H [facility] Folic Acid (Folic Acid) 1 mg PO DAILY [facility] Last Admin: 07/06/18 09:37 Dose: 1 mg Guaifenesin (Robitussin) 200 mg PO Q4H PRN PRN Reason: Cough and congestion Last Admin: 06/30/18 22:01 Dose: 200 mg Haloperidol Lactate (Haldol) 1 mg IVP Q6H PRN PRN Reason: Agitation Last Admin: 07/05/18 12:00 Dose: 1 mg Piperacillin Sod/Tazobactam (Sod 3.375 gm/ Sodium Chloride) 100 mls @ 200 mls/ hr IVPB Q6H [facility] PRN Reason: Protocol Last Admin: 07/06/18 16:56 Dose: 200 mls/hr Vancomycin HCl 1 gm/ Sodium (Chloride) 250 mls @ 166.7 mls/hr IVPB Q12H [facility] PRN Reason: Protocol Lactobacillus Acidophilus (Bacid Acidophilus) 1 cap PO BID [facility] Last Admin: 07/06/18 17:38 Dose: 1 cap Levetiracetam (Keppra) 250 mg PO BID [facility] Last Admin: 07/06/18 17:38 Dose: 250 mg Lisinopril (Zestril) 10 mg PO DAILY [facility] Last Admin: 07/04/18 11:34 Dose: Not Given Lorazepam (Ativan) 1 mg IVP Q6H PRN PRN Reason: Agitation Last Admin: 07/06/18 07:54 Dose: 1 mg Multivitamins (Hexavitamin) 1 tab PO DAILY [facility] Mupirocin (Bactroban 2% Nasal) 0.25 gm KAYA BID [facility] Last Admin: 07/06/18 17:38 Dose: 0.25 gm Pantoprazole Sodium (Protonix Ec Tab) 40 mg PO Q12 [facility] Last Admin: 07/06/18 09:37 Dose: 40 mg Sucralfate (Carafate Oral Susp) 1 gm PO QID [facility] Last Admin: 07/06/18 17:38 Dose: 1 gm Thiamine HCl (Vitamin B1 Tab) 100 mg PO BID [facility] Last Admin: 07/06/18 17:38 Dose: 100 mg - Labs Labs: 07/06/18 07:46 07/06/18 07:46 PT 13.6 SECONDS (9.7-12.2) H 06/20/18 10:09 INR 1.2 06/20/18 10:09 APTT 40 SECONDS (21-34) H 06/10/18 23:37 Assessment and Plan (1) Cardiac arrest Status: Acute (2) Respiratory failure Status: Acute (3) Seizure Status: Acute (4) GI bleeding Status: Acute (5) Hyponatremia Status: Acute (6) Aspiration pneumonia Status: Acute (7) Encephalopathy Status: Acute (8) Prophylactic measure Status: Acute Attending/Attestation - Attestation I have personally seen and examined this patient.: Yes I have fully participated in the care of the patient.: Yes I have reviewed all pertinent clinical information, including history, physical exam and plan: Yes Notes (Text): Patient seen, examined, and case discussed with infertility medical assistant. Patient seen this morning. Patient sitting upright in chart. Patient reports he feels tired. Patient is calm compared to yesterday. We had restarted his Haldol and Ativan as needed medication given his blood pressure improvement. Patient's mother not present today. Patient's vancomycin held this morning because of the elevated trough. We will order random vancomycin level and if appropriate, will restart tonight. Electrolytes repleted. f/u cultures ordered on 07/04/18. Patient had mild rise in procalcitonin. Patient's white count has normalized. Patient sent to finish last dose of prednisone today. Will restart cardizem at low dose given his tachycardia and blood pressure has normalized. Assessment/Plan 1). Cardiopulmonary Arrest Assessment/Plan * Cardiology Dr. Iglesias manager credit collections-->help appreciated * PEA s/p ROSC NSR * Echocardiogram (06/12/18): ejection fraction: 45-50%, left ventricular diastolic function is abnormal. left atrium size looks normal right atrium size looks normal. trace to mild tricupsid regurgitaton * EEG (06/15) shows an abnormal awake and drowsy EEG which is very slow, indicating encephalopathy or medication effect. Recommend repeat EEG off sedation * patient is on steroid taper * Prednisone 10mg one 07/06/18; then will complete. 2). Hyponatremia-->resolved Assessment/Plan 3). Hypokalemia/Hypomagnesemia/Hypophosphotemia Assessment/Plan * Replete as needed 4). Metabolic Acidosis Assessment/Plan * Likely secondary to the Cadriopulmonary Arrest, GI bleed, Respiratory Distress * Resolved 5). Seizure Assessment/Plan * Neurology Dr. Richie Rubi on board-->help appreciated * Risk factor: heavy alcohol use and hyponatremia, hypomagnesium * Head CT (06/11/18): no acute intracranial abnormality. Chronic microvascular ischemic changes. sinus mucosal disease as above * He has a history of alcohol withdrawal seizures * Keppra 250 mg PO Q12H * Seizure precautions 6). Anemia likely secondary to GI Bleed History of Peptic Ulcer Disease Bleeding Ulcer Assessment/Plan * GI Dr. Ho on consult help appreciated * CT Chest/abdomen/pelvis (06/12/18): distended bowel suggesting an ileus. Markedly limited evaluation of the bowel without oral or intravenous contrast. Suggestion of prior Bilroth 2 procedure. Fluid filled dilatation of small bowel andproximal colon. Fluid filled dilatation of the small bowel and prozimal colon. Fluid in the descending colon without a sharp transition sozne. Portions of transverse colon were not well visualized. * Monitor H/H and transfuse as needed * Carafate 1g qid * S/P EGD POD: 2 anastomotic ulcers with visible vessel s/p APC and 5 clips, one ulcer with visible vessel and adherent clot was not intervened on due to adverse location--->If pt develops further bleeding will need IR and Surgery on board, difficult to treat endoscopically * Monitor H/H: received 2 units on 06/16/18 and is currently stable * protonix 40mg PO BID * No NSAIDS and strong history of alcohol abuse * Patient's H/H remains stable; continue to monitor 7). Hypocalcemia Assessment/Plan * Monitor 8). Acute Respiratory Failure Aspiration Pneumonia Assessment/Plan * CT Chest 06/11/18: thinned walled cavity in the right upper lobe which may be the sequelae of prior infection 5mm subpleural nodule within the anterior right middle lobe. Focal consolidation within the inferior right middle lobe. Focal consolidation within the right lower lobe. Patchy ground glass opacities in both lungs which and nonspecific but may secondary to alectasis versus contusion versus pneumonitis. * Chest xray (06/23/18): small right pleural effusion. left basilar linear scar/ subsegmental atelectasis. no acute infiltrate. * Extubated 06/12/18 and Re-intubated on 06/14/18 and extubated 06/17/18 * Patient is on nebulizer treatment; however he has been refusing with PT. * Patient has productive cough. * Robotussin 200mg POq4H PRN cough and congestion * Chest physiotherapy * patient is on steroid taper * Prednisone 10mg one today and then done * Aspiration precautions 9) Open Wounds on Sacrum Stage II Assessment/Plan * Turn [id number] * MediHoney with Optifoam Dressing * Latest wound care note: (06/22/18) WOUND CARE NOTE-Patient re-assessed; found to have improving MASD, Moisture associated skin damage to sacral/coccyx regions. Skin continues with blanchable erythema; erosions resolving. recommending to continue aloevesta protective ointment to entire sacral/coccyx regions 3x/day and prn for incontinent episodes. Must reposition this patient frequently to optimize offloading. Will continue to follow. 10) Bilateral Anterior Rib and Sternal Fractures Assessment/Plan * Noted on CT Chest * Secondary to CPR given cardiopulmonary arrest 11) Systolic and Diastolic Heart Failure Assessment/Plan * Echocardiogram 06/12/18 shows EF at 45-50%, left ventricular diastolic function abnormal with Grade I abnormal relaxation pattern, trace to mild ticuspid regurgitation * hold Lisinopril 10 mg PO 1x/day given hypotension * Restart Cardizem 30mg PO Q6H (hold SBP<100 and HR<60) * Aspirin contraindication secondary to bleeding ulcer 12) Urinary tract infection-->resolved * Repeat urine culture 06/13/18 showed NO growth * Completed antibiotic for UTI 13) Bacteremia-->resolved * Repeat blood culture 06/12/18 is negative at 5 days 14) Alcoholism Alcoholic Liver Disease Assessment/Plan * Hx heavy use * Off Precedex * off Librium 25 mg PO Q8H 06/22/18 * MVI PO 1x/day * Thiamine 100mg PO BID * Folic acid 1mg PO daily * MVI 5 ml PO daily * Abdominal US report available in the EMR; limited but liver changes 15) Leukocytosis Assessment/Plan * patient has elevated white count on 07/04/18 * patient is on predisone taper from Solumedrol * Prednisone 10mg once today * However he remains at high risk for aspiration pneumonia; no reports of diarrhea per staff * Blood culture (07/04/18): no growth after 48 hours * Blood culture (07/05/18): no growth after 24 hours * procalcitonin: 0.83 * Zosyn 3.375 IV Q6H (active since 07/04/18) * Vanocmycin 1gm IVPB Q12H (active since 07/04/18) * held due to elevated vancomycin trough * Random vancomycin level: 14-->restart tonight's dose 16) Hypotension-->resolved Assessment/Plan * held Cardizem and Lisinopril 07/04/18 for hypotension noted 07/04/18; Blood pressure improved with IV fluids * Will introduce anti-hypertensives since blood pressure has normalized but patient remains tachycardic 17) Prophylactic measure * Protonix 40 mg PO Q12H * Lactobacillus 1 cap PO 2x/day * Chemical anticoagulation held secondary to GI bleed * Turn [id number] * Aspiration precautions * Seizure precautions * Wound care on board * PT/OT eval * Mother and Sister Jenifer ([phone]) are decision-makers for the patient. * Plan is for penitentiary * Did speak with case management yesterday that we will need to f/u cultures from 07/04/18
[2018-07-06 16:22] VITALS: RESP 20
--- NOTE | 2018-07-06 21:46 | CP.PCM.PN ---
Subjective - Date & Time of Evaluation Date of Evaluation: 07/06/18 Time of Evaluation: 16:25 - Subjective Subjective: dictated Objective - Vital Signs/Intake and Output Vital Signs (last 24 hours): Temp Pulse Resp BP Pulse Ox 98.8 F 127 H 20 114/80 95 07/06/18 15:00 07/06/18 15:00 07/06/18 15:00 07/06/18 15:00 07/06/18 15:00 Intake and Output: 07/06/18 07/07/18 18:59 06:59 Intake Total 900 Balance 900 - Medications Medications: Current Medications Albuterol/Ipratropium (Duoneb 3 Mg/0.5 Mg (3 Ml) Ud) 3 ml INH RQ4 [facility] Last Admin: 07/06/18 19:42 Dose: Not Given Aripiprazole (Abilify) 5 mg PO HS [facility] Last Admin: 07/05/18 21:59 Dose: 5 mg Diltiazem HCl (Cardizem) 30 mg PO Q6H [facility] Folic Acid (Folic Acid) 1 mg PO DAILY [facility] Last Admin: 07/06/18 09:37 Dose: 1 mg Guaifenesin (Robitussin) 200 mg PO Q4H PRN PRN Reason: Cough and congestion Last Admin: 06/30/18 22:01 Dose: 200 mg Haloperidol Lactate (Haldol) 1 mg IVP Q6H PRN PRN Reason: Agitation Last Admin: 07/05/18 12:00 Dose: 1 mg Piperacillin Sod/Tazobactam (Sod 3.375 gm/ Sodium Chloride) 100 mls @ 200 mls/ hr IVPB Q6H [facility] PRN Reason: Protocol Last Admin: 07/06/18 16:56 Dose: 200 mls/hr Vancomycin/Sodium Chloride (Vancomycin 1 Gm/Ns 200 Ml) 1 gm in 200 mls @ 133 mls/hr IVPB Q12H [facility] PRN Reason: Protocol Stop: 07/11/18 21:01 Lactobacillus Acidophilus (Bacid Acidophilus) 1 cap PO BID [facility] Last Admin: 07/06/18 17:38 Dose: 1 cap Levetiracetam (Keppra) 250 mg PO BID [facility] Last Admin: 07/06/18 17:38 Dose: 250 mg Lisinopril (Zestril) 10 mg PO DAILY [facility] Last Admin: 07/04/18 11:34 Dose: Not Given Lorazepam (Ativan) 1 mg IVP Q6H PRN PRN Reason: Agitation Last Admin: 07/06/18 21:32 Dose: 1 mg Multivitamins (Hexavitamin) 1 tab PO DAILY [facility] Mupirocin (Bactroban 2% Nasal) 0.25 gm KAYA BID [facility] Last Admin: 07/06/18 17:38 Dose: 0.25 gm Pantoprazole Sodium (Protonix Ec Tab) 40 mg PO Q12 [facility] Last Admin: 07/06/18 09:37 Dose: 40 mg Sucralfate (Carafate Oral Susp) 1 gm PO QID [facility] Last Admin: 07/06/18 17:38 Dose: 1 gm Thiamine HCl (Vitamin B1 Tab) 100 mg PO BID [facility] Last Admin: 07/06/18 17:38 Dose: 100 mg - Labs Labs: 07/06/18 07:46 07/06/18 07:46 PT 13.6 SECONDS (9.7-12.2) H 06/20/18 10:09 INR 1.2 06/20/18 10:09 APTT 40 SECONDS (21-34) H 06/10/18 23:37
[2018-07-06] MEDS: Vancomycin 1 gm/NS 200 ml 1 GM/200 ML BAG IVPB SCH (21:53)
--- NOTE | 2018-07-07 02:29 | PN ---
DATE: 07/06/2018 SUBJECTIVE: The patient is afebrile. He is feeling better. He was asking for food. He is still on one-to-one, and he has as he throws things on the floor. He says he is feeling better. PHYSICAL EXAMINATION: VITAL SIGNS: T-max is 98.8, pulse is 127, still blood pressure 114/80, respirations are 20. HEENT: Head is atraumatic, normocephalic. NECK: Supple. LUNGS: Mostly clear at this time. HEART: S1, S2 are regular. ABDOMEN: Soft, nontender. No guarding, no rigidity present. EXTREMITIES: Have no edema. ASSESSMENT AND PLAN: He is doing better on this. His hypotension is better. We have started him on Zosyn and vancomycin trough is being followed at this time. Labs show white count is 10.1, hemoglobin 11.3, hematocrit 32.6, platelets are 117, but they are coming up. Blood urea nitrogen is 8, creatinine is 0.9. It was up yesterday, now the random is 14.9. So, I guess he needs much lesser dose if it is needed, however, let see what his x-ray report shows. X-ray shows chronic linear scarring left lung base is essentially unchanged. So at this time his last sputum had gram negative, I am going to hold back on the vancomycin, and I would continue Zosyn for now and see how we deal. At least, we will give him seven days and today is the third day. We will follow. Geno Sutton MD
[2018-07-07] MEDS: Albuterol-Ipratrop 3 mg / 0.5 (3 ml) UD INH SCH ×6 (03:11→23:31)
[2018-07-07] MEDS: Piperacillin/Tazobact 3.375 GM in Sodium Chloride 100 ML IVPB SCH ×4 (04:02→22:49)
[2018-07-07 08:16] LABS: BASO % 0.1 % (0.0-2.0); EOS # 0.2 K/uL (0.0-0.7); EOS % 1.8 % (0.0-4.0); LYMPH % 21.3 % (20.0-40.0); MEAN CELL VOLUME 89.8 fL (80.0-94.0); MEAN CORPUSCULAR HEMOGLOBIN 30.4 pg (27.0-31.0); MEAN CORPUSCULAR HGB CONC 33.9 g/dL (33.0-37.0); MEAN PLATELET VOLUME 7.7 fL (7.2-11.7); MONO # 0.3 K/uL (0.0-0.8); MONO % 3.2 % (0.0-10.0); NEUT % 73.6 % (50.0-75.0); RBC 4.4 Mil/uL (4.40-5.90); RED CELL DISTRIBUTION WIDTH 20.6 % (11.5-14.5); WHITE BLOOD COUNT 9.6 K/uL (4.8-10.8)
[2018-07-07 08:32] LABS: HEMOGLOBIN 13.4 g/dL (12.0-18.0)
[2018-07-07 08:55] LABS: ALB/GLOB RATIO 1.1 (1.0-2.1); ALBUMIN 3.1 g/dL (3.5-5.0); ALT/SGPT 64 U/L (21-72); AST/SGOT 58 U/L (17-59); BLOOD UREA NITROGEN 11 mg/dL (9-20); CALCIUM 8.9 mg/dl (8.6-10.4); GFR NON-AFRICAN AMERICAN > 60
[2018-07-07] MEDS: Vancomycin 1 gm/NS 200 ml 1 GM/200 ML BAG IVPB SCH ×2 (10:04→21:07)
[2018-07-07] MEDS: Sucralfate 1 gm/10 ml Oral Susp UD PO SCH ×4 (10:04→21:09)
[2018-07-07] MEDS: Multiple Vitamins Tab PO SCH (10:04)
[2018-07-07] MEDS: Mupirocin 2% Ointment (NASAL) NAS SCH ×2 (10:04→18:02)
[2018-07-07] MEDS: Lactobacillus Acidophilus 500 MU Cap PO SCH ×2 (10:04→18:02)
[2018-07-07] MEDS: Pantoprazole 40 mg EC Tab PO SCH ×2 (10:04→21:09)
--- NOTE | 2018-07-07 14:50 | CP.PCM.PN ---
<Thomas Springer - Last Filed: 07/07/18 15:15> Subjective - Date & Time of Evaluation Date of Evaluation: 07/07/18 Time of Evaluation: 14:47 - Subjective Subjective: PGY-[address] Toure Patient was seen and examined today at bedside. Per nursing, no acute changes overnight. Patient appears to be confused, calling the medical staff the wrong names. Patient was yelling and demanding for his food and demanding to go home. Patient's mother was at bedside, states concern over patient going to stay in a half-way. Discussed possible option of negative spot[facility] assisted living as an alternative to half-way. Pt denies headache, chest pain, shortness of breath, nausea, vomiting, diarrhea, constipation. Objective - Vital Signs/Intake and Output Vital Signs (last 24 hours): Temp Pulse Resp BP Pulse Ox 98 F 103 H 20 108/67 95 07/07/18 08:46 07/07/18 08:46 07/07/18 08:46 07/07/18 08:46 07/07/18 08:46 Intake and Output: 07/07/18 07/07/18 06:59 18:59 Intake Total 600 950 Output Total 1350 400 Balance -750 550 - Medications Medications: Current Medications Albuterol/Ipratropium (Duoneb 3 Mg/0.5 Mg (3 Ml) Ud) 3 ml INH RQ4 [facility] Last Admin: 07/07/18 11:13 Dose: Not Given Aripiprazole (Abilify) 5 mg PO HS [facility] Last Admin: 07/06/18 21:59 Dose: Not Given Diltiazem HCl (Cardizem) 30 mg PO Q6H [facility] Last Admin: 07/07/18 13:18 Dose: 30 mg Folic Acid (Folic Acid) 1 mg PO DAILY [facility] Last Admin: 07/07/18 10:04 Dose: 1 mg Guaifenesin (Robitussin) 200 mg PO Q4H PRN PRN Reason: Cough and congestion Last Admin: 06/30/18 22:01 Dose: 200 mg Haloperidol Lactate (Haldol) 2 mg IVP Q6H PRN PRN Reason: Agitation Piperacillin Sod/Tazobactam (Sod 3.375 gm/ Sodium Chloride) 100 mls @ 200 mls/ hr IVPB Q6H [facility] PRN Reason: Protocol Last Admin: 07/07/18 10:04 Dose: 200 mls/hr Vancomycin/Sodium Chloride (Vancomycin 1 Gm/Ns 200 Ml) 1 gm in 200 mls @ 133 mls/hr IVPB Q12H [facility] PRN Reason: Protocol Stop: 07/11/18 21:01 Last Admin: 07/07/18 10:04 Dose: 133 mls/hr Lactobacillus Acidophilus (Bacid Acidophilus) 1 cap PO BID [facility] Last Admin: 07/07/18 10:04 Dose: 1 cap Levetiracetam (Keppra) 250 mg PO BID [facility] Last Admin: 07/07/18 10:04 Dose: 250 mg Lisinopril (Zestril) 10 mg PO DAILY [facility] Last Admin: 07/04/18 11:34 Dose: Not Given Lorazepam (Ativan) 1 mg IVP Q6H PRN PRN Reason: Agitation Last Admin: 07/07/18 08:28 Dose: 1 mg Multivitamins (Hexavitamin) 1 tab PO DAILY [facility] Last Admin: 07/07/18 10:04 Dose: 1 tab Mupirocin (Bactroban 2% Nasal) 0.25 gm KAYA BID [facility] Last Admin: 07/07/18 10:04 Dose: 0.25 gm Pantoprazole Sodium (Protonix Ec Tab) 40 mg PO Q12 [facility] Last Admin: 07/07/18 10:04 Dose: 40 mg Sucralfate (Carafate Oral Susp) 1 gm PO QID [facility] Last Admin: 07/07/18 13:07 Dose: 1 gm Thiamine HCl (Vitamin B1 Tab) 100 mg PO BID [facility] Last Admin: 07/07/18 10:04 Dose: 100 mg - Labs Labs: 07/07/18 07:47 07/07/18 07:47 PT 13.6 SECONDS (9.7-12.2) H 06/20/18 10:09 INR 1.2 06/20/18 10:09 APTT 40 SECONDS (21-34) H 06/10/18 23:37 - Constitutional Appears: Agitated, Chronically Ill, Other (Frail) - Head Exam Head Exam: ATRAUMATIC, NORMAL INSPECTION - Eye Exam Eye Exam: EOMI, Normal appearance Pupil Exam: NORMAL ACCOMODATION, PERRL - ENT Exam ENT Exam: Mucous Membranes Moist - Respiratory Exam Respiratory Exam: Clear to Ausculation Bilateral. absent: Rales, Rhonchi, Wheezes - Cardiovascular Exam Cardiovascular Exam: REGULAR RHYTHM, RRR, +S1, +S2. absent: Murmur - GI/Abdominal Exam GI & Abdominal Exam: Soft, Normal Bowel Sounds. absent: Distended, Firm, Tenderness - Extremities Exam Extremities Exam: absent: Pedal Edema Additional comments: Cool to touch, radial pulses and posterior tibial pulses equal and intact - Neurological Exam Neurological Exam: Alert, Awake. absent: Oriented x3 Additional comments: Confused. At baseline mental/cognitive state - Psychiatric Exam Psychiatric exam: Agitated - Skin Skin Exam: Dry, Intact, Normal Color, Warm Assessment and Plan - Assessment and Plan (Free Text) Assessment: 1). Cardiopulmonary Arrest Assessment/Plan * Cardiology Dr. Iglesias salon shampoo assistant-->help appreciated * PEA s/p ROSC NSR * Echocardiogram (06/12/18): ejection fraction: 45-50%, left ventricular diastolic function is abnormal. left atrium size looks normal right atrium size looks normal. trace to mild tricupsid regurgitaton * EEG (06/15) shows an abnormal awake and drowsy EEG which is very slow, indicating encephalopathy or medication effect. * Prednisone taper completed * Tele monitor renewed, possible d/c tele tomorrow 2) Hypotension/Leukocytosis * 07/04 - [employer] CALLED for Hypotension * Patient was persistently hypotensive throughout the day 70s/50s - * Pt placed in [place] position * Dr. Magdaleno evaluated the patient at bedside * -S/p 500cc NS bolus x3, currently receiving 250cc/hr NS * -Albumin 25% 50mL bolus x1 * -Reasses and potential transfer to ICU * -IV Zosyn 3.375 IVPB Q6 * ID (Dr. Sutton) * Zosyn 3.375 IVPB Q6 continued, Vancomycin discontinued * --Zoysyn day 4 of 7. Will complete Zosyn course on Wednesday. * Vanc trough 30 min before last dose 07/06 - 21.5 * F/u random vancomycin level --> 14.6 * Will continue to reassess the patient and adjust ABx * BP has remained stable at 100s/70s * Tele monitor renewed, possible d/c tele tomorrow * Afebrile * BP Meds * Lisinopril remains held * Cardizem restarted at 30 PO Q6 * IV fluids held * Repeat CXR (07/05) - "Chronic linear/curvilinear scarring left lung base, essentially unchanged." * White count resolved (9.6 from 34) * Platelets remain low (106) - possibly 2/2 Zosyn? * UA unremarkable * Blood cultures negative at 48 hours * Haldol and Ativan had been held during [employer] 2/2 hypotension --> * RESUMED: Haldol increased to 2mg IVP q6 from 1mg Q6 * Ativan 1mg IVP q6 prn for agitation * Procalcitonin .83 on 07/04 --> f/u procal tomorrow morning 3). Hyponatremia Assessment/Plan * Nephrology Dr. Shafer on board-->help appreciated * Secondary to Alcohol Abuse * Received 3 NS boluses in ER * Seizure precautions * Normalized 4). Hypokalemia/Hypomagnesemia/Hypophosphotemia Assessment/Plan * Replete as needed 5). Metabolic Acidosis Assessment/Plan * Likely secondary to the Cadriopulmonary Arrest, GI bleed, Respiratory Distress * Resolved 6). Seizure Assessment/Plan * Neurology Dr. Richie Rubi on board-->help appreciated * Risk factor: heavy alcohol use and hyponatremia, hypomagnesium * Head CT (06/11/18): no acute intracranial abnormality. Chronic microvascular ischemic changes. sinus mucosal disease as above * He has a history of alcohol withdrawal seizures * Patient is off Precedex * Keppra 250 mg PO Q12H * EEG (06/15) shows an abnormal awake and drowsy EEG which is very slow, indicating encephalopathy or medication effect. * Psych reconsulted (Dr. Huerta) - Pt lacks capacity to make medical decisions for himself 7). Anemia likely secondary to GI Bleed History of Peptic Ulcer Disease Bleeding Ulcer Assessment/Plan * GI Dr. Ho on consult help appreciated * CT Chest/abdomen/pelvis (06/12/18): distended bowel suggesting an ileus. Markedly limited evaluation of the bowel without oral or intravenous contrast. Suggestion of prior Bilroth 2 procedure. Fluid filled dilatation of small bowel andproximal colon. Fluid filled dilatation of the small bowel and prozimal colon. Fluid in the descending colon without a sharp transition sozne. Portions of transverse colon were not well visualized. * Monitor H/H and transfuse as needed * Carafate 1g qid * S/P EGD POD: 2 anastomotic ulcers with visible vessel s/p APC and 5 clips, one ulcer with visible vessel and adherent clot was not intervened on due to adverse location--->If pt develops further bleeding will need IR and Surgery on board, difficult to treat endoscopically * Monitor H/H: received 2 units on 06/16/18 and is currently stable * HgB 8.3 today, up from 7.7 * Protonix 40mg PO BID * No NSAIDS and strong history of alcohol abuse * 07/04 - [employer] CALLED for Hypotension * Patient was persistently hypotensive throughout the day 70s/50s - * Pt placed in [place] position * Dr. Magdaleno evaluated the patient at bedside * -S/p 500cc NS bolus x3, currently receiving 250cc/hr NS * -Albumin 25% 50mL bolus x1 * -IV Zosyn 3.375 IVPB Q6 * Pt ultimately was NOT transfered back to ICU * Thrombocytopenia - has been consistently low in the 110s (106 today - 07/06) -- > possible 2/2 Zosyn * Zosyn day 01/29 - will finish course on Wednesday 8). Hypocalcemia Assessment/Plan * Monitor 9). Acute Respiratory Failure Aspiration Pneumonia Assessment/Plan * CT Chest 06/11/18: thinned walled cavity in the right upper lobe which may be the sequelae of prior infection 5mm subpleural nodule within the anterior right middle lobe. Focal consolidation within the inferior right middle lobe. Focal consolidation within the right lower lobe. Patchy ground glass opacities in both lungs which and nonspecific but may secondary to alectasis versus contusion versus pneumonitis. * Chest xray (06/23/18): small right pleural effusion. left basilar linear scar/ subsegmental atelectasis. no acute infiltrate. * Extubated 06/12/18 and Re-intubated on 06/14/18 and extubated 06/17/18 * Patient has productive cough * Robotussin 200mg POq4H PRN cough and congestion * Chest physiotherapy * Tracheal Aspirate 06/16/18 showed Yeast and was treated with Fluconazole 100 IV and was discontinued once repeat Sputum 06/22/18 showed Klebsiella which is sensitive to Ciprofloxacin * Was treated with Meropenem 1gram IV Q8H and Vancomycin 1 gram IV Q12H and completed Cipro 500 mg PO 2x/day through 07/02/18 * Patient is refusing his albuterol treatments. This puts the patient at higher risk for aspiration pneumonia, for which he is already at high risk. 10) Open Wounds on Sacrum Stage II Assessment/Plan * Turn [id number] * Treated with MediHoney with Optifoam Dressing * Wound care note: (06/22/18) WOUND CARE NOTE-Patient re-assessed; found to have improving MASD, Moisture associated skin damage to sacral/coccyx regions. Skin continues with blanchable erythema; erosions resolving. recommending to continue aloevesta protective ointment to entire sacral/coccyx regions 3x/day and prn for incontinent episodes. Must reposition this patient frequently to optimize offloading. Will continue to follow. 11) Bilateral Anterior Rib and Sternal Fractures Assessment/Plan * Noted on CT Chest * Secondary to CPR given cardiopulmonary arrest 12) Systolic and Diastolic Heart Failure * Echocardiogram 06/12/18 shows EF at 45-50%, left ventricular diastolic function abnormal with Grade I abnormal relaxation pattern, trace to mild ticuspid regurgitation * Lisinopril 10 mg PO 1x/day * Cardizem 30mg PO Q6H * Aspirin contraindication secondary to bleeding ulcer 13) Urinary tract infection-->resolved * Treated with Zosyn 3.375g IV Q8H * Repeat urine culture 06/13/18 showed NO growth 14) Bacteremia-->resolved * Repeat blood culture 06/12/18 is negative at 5 days 15) 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 His blood pressure has been stable today. Will continue with Zosyn course to treat possible infection and follow procal. Plan for patient to be discharged to half-way following hospital course, case management will discuss with patient's mother who will make medical decisions for the patient. Assessment/Plan Discussed with Dr. Tejal Springer PGY-1 <Moraima Toure V - Last Filed: 07/08/18 07:39> Objective - Vital Signs/Intake and Output Vital Signs (last 24 hours): Temp Pulse Resp BP Pulse Ox 98.4 F 116 H 20 119/70 96 07/07/18 16:00 07/08/18 04:35 07/07/18 16:00 07/07/18 20:00 07/07/18 16:00 Intake and Output: 07/08/18 07/08/18 06:59 18:59 Intake Total 900 Output Total 0 Balance 900 - Medications Medications: Current Medications Albuterol/Ipratropium (Duoneb 3 Mg/0.5 Mg (3 Ml) Ud) 3 ml INH RQ4 [facility] Last Admin: 07/08/18 03:22 Dose: Not Given Aripiprazole (Abilify) 5 mg PO HS [facility] Last Admin: 07/07/18 21:09 Dose: 5 mg Diltiazem HCl (Cardizem) 30 mg PO Q6H [facility] Last Admin: 07/08/18 02:33 Dose: Not Given Folic Acid (Folic Acid) 1 mg PO DAILY [facility] Last Admin: 07/07/18 10:04 Dose: 1 mg Guaifenesin (Robitussin) 200 mg PO Q4H PRN PRN Reason: Cough and congestion Last Admin: 06/30/18 22:01 Dose: 200 mg Haloperidol Lactate (Haldol) 2 mg IVP Q6H PRN PRN Reason: Agitation Piperacillin Sod/Tazobactam (Sod 3.375 gm/ Sodium Chloride) 100 mls @ 200 mls/ hr IVPB Q6H [facility] PRN Reason: Protocol Stop: 07/11/18 16:01 Last Admin: 07/08/18 04:00 Dose: 200 mls/hr Vancomycin/Sodium Chloride (Vancomycin 1 Gm/Ns 200 Ml) 1 gm in 200 mls @ 133 mls/hr IVPB Q12H [facility] PRN Reason: Protocol Stop: 07/11/18 21:01 Last Admin: 07/07/18 21:07 Dose: 133 mls/hr Lactobacillus Acidophilus (Bacid Acidophilus) 1 cap PO BID [facility] Last Admin: 07/07/18 18:02 Dose: 1 cap Levetiracetam (Keppra) 250 mg PO BID [facility] Last Admin: 07/07/18 18:02 Dose: 250 mg Lisinopril (Zestril) 10 mg PO DAILY [facility] Last Admin: 07/04/18 11:34 Dose: Not Given Lorazepam (Ativan) 1 mg IVP Q6H PRN PRN Reason: Agitation Last Admin: 07/08/18 00:49 Dose: 1 mg Multivitamins (Hexavitamin) 1 tab PO DAILY [facility] Last Admin: 07/07/18 10:04 Dose: 1 tab Mupirocin (Bactroban 2% Nasal) 0.25 gm KAYA BID [facility] Last Admin: 07/07/18 18:02 Dose: 0.25 gm Pantoprazole Sodium (Protonix Ec Tab) 40 mg PO Q12 [facility] Last Admin: 07/07/18 21:09 Dose: 40 mg Sucralfate (Carafate Oral Susp) 1 gm PO QID [facility] Last Admin: 07/07/18 21:09 Dose: 1 gm Thiamine HCl (Vitamin B1 Tab) 100 mg PO BID [facility] Last Admin: 07/07/18 18:01 Dose: 100 mg - Labs Labs: 07/07/18 07:47 07/07/18 07:47 PT 13.6 SECONDS (9.7-12.2) H 06/20/18 10:09 INR 1.2 06/20/18 10:09 APTT 40 SECONDS (21-34) H 06/10/18 23:37 Assessment and Plan (1) Cardiac arrest Status: Acute (2) Respiratory failure Status: Acute (3) Seizure Status: Acute (4) GI bleeding Status: Acute (5) Hyponatremia Status: Acute (6) Aspiration pneumonia Status: Acute (7) Encephalopathy Status: Acute (8) Prophylactic measure Status: Acute Attending/Attestation - Attestation I have personally seen and examined this patient.: Yes I have fully participated in the care of the patient.: Yes I have reviewed all pertinent clinical information, including history, physical exam and plan: Yes Notes (Text): This is a late computer entry for 07/07/2018. Patient seen, examined, and case discussed with medical billing manager. Patient seen this afternoon with his mother at bedside. Patient again is noted to be very verbally abusive. Patient noted to be upset that he is not received additional food meals in spite of eating his lunch. Patient noted again to be cursing at us and at his mother at bedside. Patient's blood pressure is borderline normal and bladder heart rate remains mildly tachycardic. We will increase patient's Haldol back to 2 mg IV every 6 hours as needed for agitation. Patient has completed steroid taper yesterday. Patient to continue Zosyn for total 7 days. ID has recommended for vancomycin to be held. Spoken with case and social human services assistants this morning as well. Patient does not meet requirements for half-way. However he does have [id number] benefits and to be eligible for long-term care facility. His mother would be the de facto decision-maker since he cannot make decisions per psych. I have spoken with mother at bedside and indicated to her that there is form set the case and social human services assistants will need to help set up her son for long-term care facility. We will continue to monitor cultures from July 04 to ensure that they remain negative. We will repeat pro calcitonin tomorrow. Assessment/Plan 1). Cardiopulmonary Arrest Assessment/Plan * Cardiology Dr. Iglesias salon shampoo assistant-->help appreciated * PEA s/p ROSC NSR * Echocardiogram (06/12/18): ejection fraction: 45-50%, left ventricular diastolic function is abnormal. left atrium size looks normal right atrium size looks normal. trace to mild tricupsid regurgitaton * EEG (06/15) shows an abnormal awake and drowsy EEG which is very slow, indicating encephalopathy or medication effect. Recommend repeat EEG off sedation * Patient has completed steroid taper. 2). Hyponatremia-->resolved Assessment/Plan 3). Hypokalemia/Hypomagnesemia/Hypophosphotemia Assessment/Plan * Replete as needed 4). Metabolic Acidosis Assessment/Plan * Likely secondary to the Cadriopulmonary Arrest, GI bleed, Respiratory Distress * Resolved 5). Seizure Assessment/Plan * Neurology Dr. Richie Rubi on board-->help appreciated * Risk factor: heavy alcohol use and hyponatremia, hypomagnesium * Head CT (06/11/18): no acute intracranial abnormality. Chronic microvascular ischemic changes. sinus mucosal disease as above * He has a history of alcohol withdrawal seizures and seizures prior chair alcohol per mother. * Keppra 250 mg PO Q12H * Seizure precautions 6). Anemia likely secondary to GI Bleed History of Peptic Ulcer Disease Bleeding Ulcer Assessment/Plan * GI Dr. Ho on consult help appreciated * CT Chest/abdomen/pelvis (06/12/18): distended bowel suggesting an ileus. Markedly limited evaluation of the bowel without oral or intravenous contrast. Suggestion of prior Bilroth 2 procedure. Fluid filled dilatation of small bowel andproximal colon. Fluid filled dilatation of the small bowel and prozimal colon. Fluid in the descending colon without a sharp transition sozne. Portions of transverse colon were not well visualized. * Monitor H/H and transfuse as needed * Carafate 1g qid * S/P EGD POD: 2 anastomotic ulcers with visible vessel s/p APC and 5 clips, one ulcer with visible vessel and adherent clot was not intervened on due to adverse location--->If pt develops further bleeding will need IR and Surgery on board, difficult to treat endoscopically * Monitor H/H: received 2 units on 06/16/18 and is currently stable * protonix 40mg PO BID * No NSAIDS and strong history of alcohol abuse * Patient's H/H remains stable; continue to monitor 7). Hypocalcemia Assessment/Plan * Monitor 8). Acute Respiratory Failure Aspiration Pneumonia Assessment/Plan * CT Chest 06/11/18: thinned walled cavity in the right upper lobe which may be the sequelae of prior infection 5mm subpleural nodule within the anterior right middle lobe. Focal consolidation within the inferior right middle lobe. Focal consolidation within the right lower lobe. Patchy ground glass opacities in both lungs which and nonspecific but may secondary to alectasis versus contusion versus pneumonitis. * Chest xray (06/23/18): small right pleural effusion. left basilar linear scar/ subsegmental atelectasis. no acute infiltrate. * Extubated 06/12/18 and Re-intubated on 06/14/18 and extubated 06/17/18 * Patient is on nebulizer treatment; however he has been refusing with PT. I have reiterated to both mother and patient at bedside that he should not be refusing nebulizer treatments because he remains at high risk for aspiration. * Patient has productive cough. * Robotussin 200mg POq4H PRN cough and congestion * Chest physiotherapy * Has completed steroid taper * Aspiration precautions 9) Open Wounds on Sacrum Stage II Assessment/Plan * Turn [id number] * MediHoney with Optifoam Dressing * Latest wound care note: (06/22/18) WOUND CARE NOTE-Patient re-assessed; found to have improving MASD, Moisture associated skin damage to sacral/coccyx regions. Skin continues with blanchable erythema; erosions resolving. recommending to continue aloevesta protective ointment to entire sacral/coccyx regions 3x/day and prn for incontinent episodes. Must reposition this patient frequently to optimize offloading. Will continue to follow. 10) Bilateral Anterior Rib and Sternal Fractures Assessment/Plan * Noted on CT Chest * Secondary to CPR given cardiopulmonary arrest 11) Systolic and Diastolic Heart Failure Assessment/Plan * Echocardiogram 06/12/18 shows EF at 45-50%, left ventricular diastolic function abnormal with Grade I abnormal relaxation pattern, trace to mild ticuspid regurgitation * hold Lisinopril 10 mg PO 1x/day given hypotension * Continue Cardizem 30mg PO Q6H (hold SBP<100 and HR<60) * Aspirin contraindication secondary to bleeding ulcer 12) Urinary tract infection-->resolved * Repeat urine culture 06/13/18 showed NO growth * Completed antibiotic for UTI 13) Bacteremia-->resolved * Repeat blood culture 06/12/18 is negative at 5 days 14) Alcoholism Alcoholic Liver Disease Assessment/Plan * Hx heavy use * Off Precedex * off Librium 25 mg PO Q8H 06/22/18 * MVI PO 1x/day * Thiamine 100mg PO BID * Folic acid 1mg PO daily * MVI 5 ml PO daily * Abdominal US report available in the EMR; limited but liver changes 15) Leukocytosis Assessment/Plan * patient has elevated white count on 07/04/18 * Has completed steroid taper * However he remains at high risk for aspiration pneumonia; no reports of diarrhea per staff * Blood culture (07/04/18): no growth * procalcitonin: 0.83 from July 04, we will repeat tomorrow's blood work. * Zosyn 3.375 IV Q6H (active since 07/04/18) to complete until July 11. * Discontinue vancomycin Vanocmycin 1gm IVPB Q12H (active since 07/04/18) 16) Hypotension-->resolved Assessment/Plan * held Cardizem and Lisinopril 07/04/18 for hypotension noted 07/04/18; Blood pressure improved with IV fluids * Will introduce anti-hypertensives since blood pressure has normalized but patient remains tachycardic 17) Prophylactic measure * Protonix 40 mg PO Q12H * Lactobacillus 1 cap PO 2x/day * Chemical anticoagulation held secondary to GI bleed * Turn [id number] * Aspiration precautions * Seizure precautions * Wound care on board * PT/OT eval * Mother and Sister Jenifer ([phone]) are decision-makers for the patient. Disposition: Plan is for long-term care facility because patient has benefits. Patient not eligible for half-way. Patient unable to make medical decisions per psych therefore decision making through the mother.
[2018-07-08] MEDS: Albuterol-Ipratrop 3 mg / 0.5 (3 ml) UD INH SCH ×5 (03:22→19:59)
[2018-07-08] MEDS: Piperacillin/Tazobact 3.375 GM in Sodium Chloride 100 ML IVPB SCH ×4 (04:00→22:07)
[2018-07-08 08:05] LABS: BASO % 0.3 % (0.0-2.0); EOS # 0.1 K/uL (0.0-0.7); HEMOGLOBIN 13.6 g/dL (12.0-18.0); MONO # 0.3 K/uL (0.0-0.8); NEUT % 76.9 % (50.0-75.0)
[2018-07-08 08:23] LABS: EOS % 1.6 % (0.0-4.0); LYMPH # 1.5 K/uL (1.0-4.3); LYMPH % 18.1 % (20.0-40.0); MEAN CELL VOLUME 89.5 fL (80.0-94.0); MEAN CORPUSCULAR HEMOGLOBIN 30.7 pg (27.0-31.0); MEAN CORPUSCULAR HGB CONC 34.3 g/dL (33.0-37.0); MEAN PLATELET VOLUME 8.2 fL (7.2-11.7); MONO % 3.1 % (0.0-10.0); NEUT # 6.4 K/uL (1.8-7.0); NRBC % 0.2 % (0.0-2.0); RBC 4.44 Mil/uL (4.40-5.90); WHITE BLOOD COUNT 8.3 K/uL (4.8-10.8)
[2018-07-08 08:43] LABS: ALB/GLOB RATIO 1.1 (1.0-2.1); ALBUMIN 3.5 g/dL (3.5-5.0); ALT/SGPT 52 U/L (21-72); AST/SGOT 44 U/L (17-59); BLOOD UREA NITROGEN 12 mg/dL (9-20); GFR NON-AFRICAN AMERICAN > 60
--- NOTE | 2018-07-08 09:25 | CP.PCM.PN ---
<ShankarMichaela Y - Last Filed: 07/08/18 19:08> Subjective - Date & Time of Evaluation Date of Evaluation: 07/08/18 Time of Evaluation: 07:15 - Subjective Subjective: PGY-1 Medicine Progress Note for Dr. Toure Patient was seen and examined today at bedside. Per nursing, patient was agitated all night and did not sleep. Patient was administered Ativan 1mg every 6 hours to help calm him down. He refused duoneb treatment and cardizem per nursing. At bedside, patient was agitated and demanding food. He refused to cooperate with questions and exam. Objective - Vital Signs/Intake and Output Vital Signs (last 24 hours): Temp Pulse Resp BP Pulse Ox 98.5 F 107 H 20 108/73 100 07/08/18 08:22 07/08/18 08:22 07/08/18 08:22 07/08/18 08:22 07/08/18 08:22 Intake and Output: 07/08/18 07/08/18 06:59 18:59 Intake Total 900 Output Total 0 Balance 900 - Medications Medications: Current Medications Albuterol/Ipratropium (Duoneb 3 Mg/0.5 Mg (3 Ml) Ud) 3 ml INH RQ4 [facility] Last Admin: 07/08/18 08:20 Dose: Not Given Aripiprazole (Abilify) 5 mg PO HS [facility] Last Admin: 07/07/18 21:09 Dose: 5 mg Diltiazem HCl (Cardizem) 30 mg PO Q6H [facility] Last Admin: 07/08/18 02:33 Dose: Not Given Folic Acid (Folic Acid) 1 mg PO DAILY [facility] Last Admin: 07/07/18 10:04 Dose: 1 mg Guaifenesin (Robitussin) 200 mg PO Q4H PRN PRN Reason: Cough and congestion Last Admin: 06/30/18 22:01 Dose: 200 mg Haloperidol Lactate (Haldol) 2 mg IVP Q6H PRN PRN Reason: Agitation Piperacillin Sod/Tazobactam (Sod 3.375 gm/ Sodium Chloride) 100 mls @ 200 mls/ hr IVPB Q6H [facility] PRN Reason: Protocol Stop: 07/11/18 16:01 Last Admin: 07/08/18 04:00 Dose: 200 mls/hr Vancomycin/Sodium Chloride (Vancomycin 1 Gm/Ns 200 Ml) 1 gm in 200 mls @ 133 mls/hr IVPB Q12H [facility] PRN Reason: Protocol Stop: 07/11/18 21:01 Last Admin: 07/07/18 21:07 Dose: 133 mls/hr Lactobacillus Acidophilus (Bacid Acidophilus) 1 cap PO BID [facility] Last Admin: 07/07/18 18:02 Dose: 1 cap Levetiracetam (Keppra) 250 mg PO BID [facility] Last Admin: 07/07/18 18:02 Dose: 250 mg Lisinopril (Zestril) 10 mg PO DAILY [facility] Last Admin: 07/04/18 11:34 Dose: Not Given Lorazepam (Ativan) 1 mg IVP Q6H PRN PRN Reason: Agitation Last Admin: 07/08/18 00:49 Dose: 1 mg Multivitamins (Hexavitamin) 1 tab PO DAILY [facility] Last Admin: 07/07/18 10:04 Dose: 1 tab Mupirocin (Bactroban 2% Nasal) 0.25 gm KAYA BID [facility] Last Admin: 07/07/18 18:02 Dose: 0.25 gm Pantoprazole Sodium (Protonix Ec Tab) 40 mg PO Q12 [facility] Last Admin: 07/07/18 21:09 Dose: 40 mg Sucralfate (Carafate Oral Susp) 1 gm PO QID [facility] Last Admin: 07/07/18 21:09 Dose: 1 gm Thiamine HCl (Vitamin B1 Tab) 100 mg PO BID [facility] Last Admin: 07/07/18 18:01 Dose: 100 mg - Labs Labs: 07/08/18 07:48 07/08/18 07:48 PT 13.6 SECONDS (9.7-12.2) H 06/20/18 10:09 INR 1.2 06/20/18 10:09 APTT 40 SECONDS (21-34) H 06/10/18 23:37 - Constitutional Appears: Agitated, Confused, Cachectic - Head Exam Head Exam: ATRAUMATIC, NORMOCEPHALIC - Respiratory Exam Respiratory Exam: Clear to Ausculation Bilateral. absent: Rales, Rhonchi, Wheezes - Cardiovascular Exam Cardiovascular Exam: Tachycardia, +S1, +S2 Additional comments: healed scar in R clavicular region - GI/Abdominal Exam GI & Abdominal Exam: Soft. absent: Distended, Guarding, Tenderness, Rebound Additional comments: well healed midline incision scar - Exam Additional comments: condom cath in place, draining well - Extremities Exam Extremities Exam: absent: Calf Tenderness, Pedal Edema Additional comments: wearing mitts, R midline, LE bilaterally cold to touch - Neurological Exam Neurological Exam: Alert. absent: Oriented x3 - Skin Skin Exam: Dry, Intact, Warm Assessment and Plan - Assessment and Plan (Free Text) Assessment: Patient is a 52 year old male with past medical history of of seizures, COPD, hiatal hernia, alcohol abuse, presenting for cardiac arrest and respiratory failure. Patient is currently being medically managed and will complete his antibiotic course on Tuesday 07/10. Patient discharge to correction placement is pending documentation verification with [facility]. Plan: 1). Cardiopulmonary Arrest Assessment/Plan * Cardiology Dr. Iglesias cardiovascular surgeon-->help appreciated * PEA s/p ROSC NSR * Echocardiogram (06/12/18): ejection fraction: 45-50%, left ventricular diastolic function is abnormal. left atrium size looks normal right atrium size looks normal. trace to mild tricupsid regurgitaton * EEG (06/15) shows an abnormal awake and drowsy EEG which is very slow, indicating encephalopathy or medication effect. * Prednisone taper completed * Tele monitor renewed, possible d/c tele tomorrow. should not d/c tele if still refusing Duonebs and cardizem. 2) Hypotension/Leukocytosis * 07/04 - TUB WASH OPERATOR CALLED for Hypotension * Patient was persistently hypotensive throughout the day 70s/50s - 98/68 * Pt placed in [place] position * Dr. Magdaleno evaluated the patient at bedside * -S/p 500cc NS bolus x3, stopped 250cc/hr NS * -Albumin 25% 50mL bolus x1 * -Reasses and potential transfer to ICU * -IV Zosyn 3.375 IVPB Q6 * ID (Dr. Sutton) * Zosyn 3.375 IVPB Q6 continued, Vancomycin discontinued * --Zosyn day 5 of 7. Will complete Zosyn course on Wednesday. * vanc trough appropriate while on antibiotic * Will continue to reassess the patient and adjust ABx * BP has remained stable at 100s/70s * Tele monitor renewed, possible d/c tele tomorrow * Afebrile * BP Meds * Lisinopril remains held * Cardizem restarted at 30mg PO Q6 * IV fluids d/c'd * Repeat CXR (07/05) - "Chronic linear/curvilinear scarring left lung base, essentially unchanged." * White count resolved (9.6 from 34) * Platelets remain low (116) - possibly 2/2 Zosyn? * UA unremarkable * Blood cultures negative at 72 hours * Haldol and Ativan had been held during TUB WASH OPERATOR 2/2 hypotension --> * RESUMED: Haldol increased to 2mg IVP q6 from 1mg Q6, has not needed * Ativan 1mg IVP q6 prn for agitation, uses at least every other dose * Procalcitonin: 0.83 (07/04) --> 0.71 (07/07) 3). Hyponatremia- resolved Assessment/Plan * Nephrology Dr. Shafer on board-->help appreciated * Secondary to Alcohol Abuse * Received 3 NS boluses in ER * Seizure precautions * Normalized 4). Hypokalemia/Hypomagnesemia/Hypophosphotemia Assessment/Plan * Replete as needed * continue to monitor with AM labs 5). Metabolic Acidosis-resolved Assessment/Plan * Likely secondary to the Cadriopulmonary Arrest, GI bleed, Respiratory Distress * Resolved 6). Seizure Assessment/Plan * Neurology Dr. Richie Rubi on board-->help appreciated * Risk factor: heavy alcohol use and hyponatremia, hypomagnesium * Head CT (06/11/18): no acute intracranial abnormality. Chronic microvascular ischemic changes. sinus mucosal disease as above * He has a history of alcohol withdrawal seizures * Patient is off Precedex * Keppra 250 mg PO Q12H * EEG (06/15) shows an abnormal awake and drowsy EEG which is very slow, indicating encephalopathy or medication effect. * Psych reconsulted (Dr. Huerta) - Pt lacks capacity to make medical decisions for himself 7). Anemia likely secondary to GI Bleed History of Peptic Ulcer Disease Bleeding Ulcer Assessment/Plan * GI Dr. Ho on consult help appreciated * CT Chest/abdomen/pelvis (06/12/18): distended bowel suggesting an ileus. Markedly limited evaluation of the bowel without oral or intravenous contrast. Suggestion of prior Bilroth 2 procedure. Fluid filled dilatation of small bowel andproximal colon. Fluid filled dilatation of the small bowel and prozimal colon. Fluid in the descending colon without a sharp transition sozne. Portions of transverse colon were not well visualized. * Monitor H/H and transfuse as needed * Carafate 1g qid * S/P EGD POD: 2 anastomotic ulcers with visible vessel s/p APC and 5 clips, one ulcer with visible vessel and adherent clot was not intervened on due to adverse location--->If pt develops further bleeding will need IR and Surgery on board, difficult to treat endoscopically * Monitor H/H: received 2 units on 06/16/18 and is currently stable * Protonix 40mg PO BID * No NSAIDS and strong history of alcohol abuse * 07/04 - TUB WASH OPERATOR CALLED for Hypotension * Patient was persistently hypotensive throughout the day 70s/50s - * Pt placed in [place] position * Dr. Magdaleno evaluated the patient at bedside * -S/p 500cc NS bolus x3, * -Albumin 25% 50mL bolus x1 * -IV Zosyn 3.375 IVPB Q6 * Pt ultimately was NOT transfered back to ICU * Thrombocytopenia - has been consistently low in the 110s (106 today - 07/06) -- > possible 2/2 Zosyn * Zosyn day 02/28 - will finish course on Wednesday 8). Hypocalcemia Assessment/Plan * Monitor 9). Acute Respiratory Failure Aspiration Pneumonia Assessment/Plan * CT Chest 06/11/18: thinned walled cavity in the right upper lobe which may be the sequelae of prior infection 5mm subpleural nodule within the anterior right middle lobe. Focal consolidation within the inferior right middle lobe. Focal consolidation within the right lower lobe. Patchy ground glass opacities in both lungs which and nonspecific but may secondary to alectasis versus contusion versus pneumonitis. * Chest xray (06/23/18): small right pleural effusion. left basilar linear scar/ subsegmental atelectasis. no acute infiltrate. * Extubated 06/12/18 and Re-intubated on 06/14/18 and extubated 06/17/18 * Patient has productive cough * Robotussin 200mg POq4H PRN cough and congestion * Chest physiotherapy * Tracheal Aspirate 06/16/18 showed Yeast and was treated with Fluconazole 100 IV and was discontinued once repeat Sputum 06/22/18 showed Klebsiella which is sensitive to Ciprofloxacin * Was treated with Meropenem 1gram IV Q8H and Vancomycin 1 gram IV Q12H and completed Cipro 500 mg PO 2x/day through 07/02/18 * Patient is refusing his albuterol treatments. This puts the patient at higher risk for aspiration pneumonia, for which he is already at high risk. 10) Open Wounds on Sacrum Stage II Assessment/Plan * Turn [id number] * Treated with MediHoney with Optifoam Dressing * Wound care note: (06/22/18) WOUND CARE NOTE-Patient re-assessed; found to have improving MASD, Moisture associated skin damage to sacral/coccyx regions. Skin continues with blanchable erythema; erosions resolving. recommending to continue aloevesta protective ointment to entire sacral/coccyx regions 3x/day and prn for incontinent episodes. Must reposition this patient frequently to optimize offloading. Will continue to follow. 11) Bilateral Anterior Rib and Sternal Fractures Assessment/Plan * Noted on CT Chest * Secondary to CPR given cardiopulmonary arrest 12) Systolic and Diastolic Heart Failure * Echocardiogram 06/12/18 shows EF at 45-50%, left ventricular diastolic function abnormal with Grade I abnormal relaxation pattern, trace to mild ticuspid regurgitation * Lisinopril 10 mg PO 1x/day * Refused Cardizem 30mg PO Q6H on 07/08 AM, accepted PM dose * Aspirin contraindication secondary to bleeding ulcer 13) Urinary tract infection-->resolved * Treated with Zosyn 3.375g IV Q8H * Repeat urine culture 06/13/18 showed NO growth 14) Bacteremia-->resolved * Repeat blood culture 06/12/18 is negative at 5 days 15) 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 His blood pressure has been stable today. Will continue with Zosyn course to treat possible infection and follow procal. Plan for patient to be discharged to retirement following hospital course, case management will discuss with patient's mother who will make medical decisions for the patient. Patient has been accepted to [facility], however needs to be 24 hour observation off Haldol and Ativan IV. Patient has not needed the Haldol, will observe how he behaves without Ativan prn. Assessment/Plan Discussed with Dr. Tejal Shankar PGY-1 <Moraima Toure V - Last Filed: 07/10/18 20:07> Objective - Vital Signs/Intake and Output Vital Signs (last 24 hours): Temp Pulse Resp BP Pulse Ox 98.1 F 104 H 20 130/83 100 07/09/18 08:00 07/09/18 08:00 07/09/18 08:00 07/09/18 08:00 07/09/18 08:00 - Labs Labs: 07/09/18 14:32 07/09/18 14:32 PT 13.6 SECONDS (9.7-12.2) H 06/20/18 10:09 INR 1.2 06/20/18 10:09 APTT 40 SECONDS (21-34) H 06/10/18 23:37 Assessment and Plan (1) Cardiac arrest Status: Acute (2) Respiratory failure Status: Acute (3) Seizure Status: Acute (4) GI bleeding Status: Acute (5) Hyponatremia Status: Acute (6) Aspiration pneumonia Status: Acute (7) Encephalopathy Status: Acute (8) Prophylactic measure Status: Acute Attending/Attestation - Attestation I have personally seen and examined this patient.: Yes I have fully participated in the care of the patient.: Yes I have reviewed all pertinent clinical information, including history, physical exam and plan: Yes Notes (Text): This is a late computer entry for 07/08/2018. Patient seen, examined, and case discussed with medical collections representative. Patient seen this afternoon. Patient is at his baseline. Patient again is noted to be very verbally abusive. Patient noted to be upset that he is not received additional food meals in spite of eating his lunch. I spoke with case management and social services aide. They have obtained a spot for him at [facility]; however, patient cannot be on Haldol/Ativan IV or IM but can support mittens. We will observe him for 24 hours off the Haldol/Ativan IV dose. [facility] will support PICC line which is good for 28 days per case management. Patient to finish 5 more days of IV abx to cover for aspiration pneumonia. I have spoken with patient's mother Rony over the phone indicated that patient does have a spot and his medications were adjusted during hospitalization. Assessment/Plan 1). Cardiopulmonary Arrest Assessment/Plan * Cardiology Dr. Iglesias cardiovascular surgeon-->help appreciated * PEA s/p ROSC NSR * Echocardiogram (06/12/18): ejection fraction: 45-50%, left ventricular diastolic function is abnormal. left atrium size looks normal right atrium size looks normal. trace to mild tricupsid regurgitaton * EEG (06/15) shows an abnormal awake and drowsy EEG which is very slow, indicating encephalopathy or medication effect. Recommend repeat EEG off sedation * Patient has completed steroid taper. 2). Hyponatremia-->resolved Assessment/Plan 3). Hypokalemia/Hypomagnesemia/Hypophosphotemia Assessment/Plan * Replete as needed 4). Metabolic Acidosis Assessment/Plan * Likely secondary to the Cadriopulmonary Arrest, GI bleed, Respiratory Distress * Resolved 5). Seizure Assessment/Plan * Neurology Dr. Richie Rubi on board-->help appreciated * Risk factor: heavy alcohol use and hyponatremia, hypomagnesium * Head CT (06/11/18): no acute intracranial abnormality. Chronic microvascular ischemic changes. sinus mucosal disease as above * He has a history of alcohol withdrawal seizures and seizures prior chair alcohol per mother. * Keppra 250 mg PO Q12H * Seizure precautions 6). Anemia likely secondary to GI Bleed History of Peptic Ulcer Disease Bleeding Ulcer Assessment/Plan * GI Dr. Ho on consult help appreciated * CT Chest/abdomen/pelvis (06/12/18): distended bowel suggesting an ileus. Markedly limited evaluation of the bowel without oral or intravenous contrast. Suggestion of prior Bilroth 2 procedure. Fluid filled dilatation of small bowel andproximal colon. Fluid filled dilatation of the small bowel and prozimal colon. Fluid in the descending colon without a sharp transition sozne. Portions of transverse colon were not well visualized. * Monitor H/H and transfuse as needed * Carafate 1g qid * S/P EGD POD: 2 anastomotic ulcers with visible vessel s/p APC and 5 clips, one ulcer with visible vessel and adherent clot was not intervened on due to adverse location--->If pt develops further bleeding will need IR and Surgery on board, difficult to treat endoscopically * Monitor H/H: received 2 units on 06/16/18 and is currently stable * protonix 40mg PO BID * No NSAIDS and strong history of alcohol abuse * Patient's H/H remains stable; continue to monitor 7). Hypocalcemia Assessment/Plan * Monitor 8). Acute Respiratory Failure Aspiration Pneumonia Assessment/Plan * CT Chest 06/11/18: thinned walled cavity in the right upper lobe which may be the sequelae of prior infection 5mm subpleural nodule within the anterior right middle lobe. Focal consolidation within the inferior right middle lobe. Focal consolidation within the right lower lobe. Patchy ground glass opacities in both lungs which and nonspecific but may secondary to alectasis versus contusion versus pneumonitis. * Chest xray (06/23/18): small right pleural effusion. left basilar linear scar/ subsegmental atelectasis. no acute infiltrate. * Extubated 06/12/18 and Re-intubated on 06/14/18 and extubated 06/17/18 * Patient is on nebulizer treatment; however he has been refusing with PT. I have reiterated to both mother and patient at bedside that he should not be refusing nebulizer treatments because he remains at high risk for aspiration. * Patient has productive cough. * Robotussin 200mg POq4H PRN cough and congestion * Chest physiotherapy * Has completed steroid taper * Aspiration precautions 9) Open Wounds on Sacrum Stage II Assessment/Plan * Turn [id number] * MediHoney with Optifoam Dressing * Latest wound care note: (06/22/18) WOUND CARE NOTE-Patient re-assessed; found to have improving MASD, Moisture associated skin damage to sacral/coccyx regions. Skin continues with blanchable erythema; erosions resolving. recommending to continue aloevesta protective ointment to entire sacral/coccyx regions 3x/day and prn for incontinent episodes. Must reposition this patient frequently to optimize offloading. Will continue to follow. 10) Bilateral Anterior Rib and Sternal Fractures Assessment/Plan * Noted on CT Chest * Secondary to CPR given cardiopulmonary arrest 11) Systolic and Diastolic Heart Failure Assessment/Plan * Echocardiogram 06/12/18 shows EF at 45-50%, left ventricular diastolic function abnormal with Grade I abnormal relaxation pattern, trace to mild ticuspid regurgitation * hold Lisinopril 10 mg PO 1x/day given hypotension * Continue Cardizem 30mg PO Q6H (hold SBP<100 and HR<60) * Aspirin contraindication secondary to bleeding ulcer 12) Urinary tract infection-->resolved * Repeat urine culture 06/13/18 showed NO growth * Completed antibiotic for UTI 13) Bacteremia-->resolved * Repeat blood culture 06/12/18 is negative at 5 days 14) Alcoholism Alcoholic Liver Disease Assessment/Plan * Hx heavy use * Off Precedex * off Librium 25 mg PO Q8H 06/22/18 * MVI PO 1x/day * Thiamine 100mg PO BID * Folic acid 1mg PO daily * MVI 5 ml PO daily * Abdominal US report available in the EMR; limited but liver changes 15) Leukocytosis Assessment/Plan * patient has elevated white count on 07/04/18 * Has completed steroid taper * However he remains at high risk for aspiration pneumonia; no reports of diarrhea per staff * Blood culture (07/04/18): no growth * procalcitonin: 0.83 from July 04, we will repeat tomorrow's blood work. * Zosyn 3.375 IV Q6H (active since 07/04/18) to complete until July 11. * Discontinue vancomycin Vanocmycin 1gm IVPB Q12H (active since 07/04/18) 16) Hypotension-->resolved Assessment/Plan * held Cardizem and Lisinopril 07/04/18 for hypotension noted 07/04/18; Blood pressure improved with IV fluids * Will introduce anti-hypertensives since blood pressure has normalized but patient remains tachycardic 17) Prophylactic measure * Protonix 40 mg PO Q12H * Lactobacillus 1 cap PO 2x/day * Chemical anticoagulation held secondary to GI bleed * Turn [id number] * Aspiration precautions * Seizure precautions * Wound care on board * PT/OT eval * Mother and Sister Jenifer ([phone]) are decision-makers for the patient. Disposition: Plan is for long-term care facility because patient has benefits. Patient unable to make medical decisions per psych therefore decision making through the mother. Patient will need to be off Haldol/Ativan for 24 hours prior to discharge.
[2018-07-08] MEDS: Pantoprazole 40 mg EC Tab PO SCH ×2 (10:17→22:10)
[2018-07-08] MEDS: Multiple Vitamins Tab PO SCH (10:17)
[2018-07-08] MEDS: Lactobacillus Acidophilus 500 MU Cap PO SCH ×2 (10:17→17:32)
[2018-07-08] MEDS: Mupirocin 2% Ointment (NASAL) NAS SCH ×2 (10:18→17:32)
[2018-07-08] MEDS: Sucralfate 1 gm/10 ml Oral Susp UD PO SCH ×4 (10:19→22:04)
--- NOTE | 2018-07-08 14:17 | CP.PCM.PN ---
Subjective - Date & Time of Evaluation Date of Evaluation: 07/08/18 Time of Evaluation: 13:00 - Subjective Subjective: dictated Objective - Vital Signs/Intake and Output Vital Signs (last 24 hours): Temp Pulse Resp BP Pulse Ox 98.5 F 107 H 20 108/73 100 07/08/18 08:22 07/08/18 08:22 07/08/18 08:22 07/08/18 08:22 07/08/18 08:22 Intake and Output: 07/08/18 07/08/18 06:59 18:59 Intake Total 900 Output Total 0 Balance 900 - Medications Medications: Current Medications Albuterol/Ipratropium (Duoneb 3 Mg/0.5 Mg (3 Ml) Ud) 3 ml INH RQ4 [facility] Last Admin: 07/08/18 11:44 Dose: Not Given Aripiprazole (Abilify) 5 mg PO HS [facility] Last Admin: 07/07/18 21:09 Dose: 5 mg Diltiazem HCl (Cardizem) 30 mg PO Q6H [facility] Last Admin: 07/08/18 13:22 Dose: 30 mg Folic Acid (Folic Acid) 1 mg PO DAILY [facility] Last Admin: 07/08/18 10:17 Dose: 1 mg Guaifenesin (Robitussin) 200 mg PO Q4H PRN PRN Reason: Cough and congestion Last Admin: 06/30/18 22:01 Dose: 200 mg Haloperidol Lactate (Haldol) 2 mg IVP Q6H PRN PRN Reason: Agitation Piperacillin Sod/Tazobactam (Sod 3.375 gm/ Sodium Chloride) 100 mls @ 200 mls/ hr IVPB Q6H [facility] PRN Reason: Protocol Stop: 07/11/18 16:01 Last Admin: 07/08/18 10:18 Dose: 200 mls/hr Vancomycin/Sodium Chloride (Vancomycin 1 Gm/Ns 200 Ml) 1 gm in 200 mls @ 133 mls/hr IVPB Q12H [facility] PRN Reason: Protocol Stop: 07/11/18 21:01 Last Admin: 07/07/18 21:07 Dose: 133 mls/hr Lactobacillus Acidophilus (Bacid Acidophilus) 1 cap PO BID [facility] Last Admin: 07/08/18 10:17 Dose: 1 cap Levetiracetam (Keppra) 250 mg PO BID [facility] Last Admin: 07/08/18 10:17 Dose: 250 mg Lisinopril (Zestril) 10 mg PO DAILY [facility] Last Admin: 07/04/18 11:34 Dose: Not Given Lorazepam (Ativan) 1 mg IVP Q6H PRN PRN Reason: Agitation Last Admin: 07/08/18 00:49 Dose: 1 mg Multivitamins (Hexavitamin) 1 tab PO DAILY [facility] Last Admin: 07/08/18 10:17 Dose: 1 tab Mupirocin (Bactroban 2% Nasal) 0.25 gm KAYA BID [facility] Last Admin: 07/08/18 10:18 Dose: 0.25 gm Pantoprazole Sodium (Protonix Ec Tab) 40 mg PO Q12 [facility] Last Admin: 07/08/18 10:17 Dose: 40 mg Sucralfate (Carafate Oral Susp) 1 gm PO QID [facility] Last Admin: 07/08/18 13:33 Dose: Not Given Thiamine HCl (Vitamin B1 Tab) 100 mg PO BID [facility] Last Admin: 07/08/18 10:17 Dose: 100 mg - Labs Labs: 07/08/18 07:48 07/08/18 07:48 PT 13.6 SECONDS (9.7-12.2) H 06/20/18 10:09 INR 1.2 06/20/18 10:09 APTT 40 SECONDS (21-34) H 06/10/18 23:37
--- NOTE | 2018-07-08 23:14 | PN ---
DATE: 07/08/2018 SUBJECTIVE: The patient, Doroteo Clancy, was very much awake and alert. He was trying to find his channels on the television. PHYSICAL EXAMINATION: VITAL SIGNS: T-max was 99.5, heart rate of 100, still remains tachycardic, blood pressure is 117/77, respirations are 20. HEENT: Head is atraumatic, normocephalic. NECK: Supple. LUNGS: Clear. No crackles or rales present. HEART: S1 and S2, tachycardic, rate of 100. ABDOMEN: Soft, nontender. No guarding, no rigidity present. EXTREMITIES: Have no edema. White count is 8.3, hemoglobin 13.6, hematocrit 39.7, platelet count is 116. Sodium is 139, potassium 3.9, chlorides are 104, BUN is 12, creatinine 0.7. Blood cultures are negative. Sputum had Klebsiella. ASSESSMENT AND PLAN: He will be going on five days of Zosyn as they have found a rehabilitation for him. Impression is he did have respiratory failure, has improved. Has Klebsiella pneumonia. He will be going for rehabilitation. Geno Sutton MD
[2018-07-09] MEDS: Albuterol-Ipratrop 3 mg / 0.5 (3 ml) UD INH SCH ×6 (00:50→19:24)
[2018-07-09] MEDS: Piperacillin/Tazobact 3.375 GM in Sodium Chloride 100 ML IVPB SCH ×3 (03:25→17:51)
[2018-07-09 07:23] LABS: ALBUMIN 3.1 g/dL (3.5-5.0); ALT/SGPT 46 U/L (21-72); AST/SGOT 30 U/L (17-59); BLOOD UREA NITROGEN 7 mg/dL (9-20); CALCIUM 8.7 mg/dl (8.6-10.4); GFR NON-AFRICAN AMERICAN > 60
--- NOTE | 2018-07-09 08:41 | CP.PCM.PN ---
Subjective - Date & Time of Evaluation Date of Evaluation: 07/09/18 Time of Evaluation: 08:39 - Subjective Subjective: PGY-1 Medicine Progress Note for Dr. Toure Patient was seen and examined today at bedside. At bedside, patient was agitated and demanding food. He refused to cooperate with questions and exam. Objective - Vital Signs/Intake and Output Vital Signs (last 24 hours): Temp Pulse Resp BP Pulse Ox 98.2 F 96 H 20 128/77 98 07/08/18 23:30 07/08/18 23:30 07/08/18 23:30 07/08/18 23:30 07/08/18 23:30 Intake and Output: 07/09/18 07/09/18 06:59 18:59 Output Total 600 Balance -600 - Medications Medications: Current Medications Albuterol/Ipratropium (Duoneb 3 Mg/0.5 Mg (3 Ml) Ud) 3 ml INH RQ4 [facility] Last Admin: 07/09/18 07:37 Dose: Not Given Aripiprazole (Abilify) 5 mg PO HS [facility] Last Admin: 07/08/18 22:10 Dose: 5 mg Diltiazem HCl (Cardizem) 30 mg PO Q6H [facility] Last Admin: 07/09/18 02:02 Dose: Not Given Folic Acid (Folic Acid) 1 mg PO DAILY [facility] Last Admin: 07/08/18 10:17 Dose: 1 mg Guaifenesin (Robitussin) 200 mg PO Q4H PRN PRN Reason: Cough and congestion Last Admin: 06/30/18 22:01 Dose: 200 mg Piperacillin Sod/Tazobactam (Sod 3.375 gm/ Sodium Chloride) 100 mls @ 200 mls/ hr IVPB Q6H [facility] PRN Reason: Protocol Stop: 07/11/18 16:01 Last Admin: 07/09/18 03:25 Dose: 200 mls/hr Vancomycin/Sodium Chloride (Vancomycin 1 Gm/Ns 200 Ml) 1 gm in 200 mls @ 133 mls/hr IVPB Q12H [facility] PRN Reason: Protocol Stop: 07/11/18 21:01 Last Admin: 07/07/18 21:07 Dose: 133 mls/hr Lactobacillus Acidophilus (Bacid Acidophilus) 1 cap PO BID [facility] Last Admin: 07/08/18 17:32 Dose: 1 cap Levetiracetam (Keppra) 250 mg PO BID [facility] Last Admin: 07/08/18 17:32 Dose: 250 mg Lisinopril (Zestril) 10 mg PO DAILY [facility] Last Admin: 07/04/18 11:34 Dose: Not Given Multivitamins (Hexavitamin) 1 tab PO DAILY [facility] Last Admin: 07/08/18 10:17 Dose: 1 tab Mupirocin (Bactroban 2% Nasal) 0.25 gm KAYA BID [facility] Last Admin: 07/08/18 17:32 Dose: 0.25 gm Pantoprazole Sodium (Protonix Ec Tab) 40 mg PO Q12 [facility] Last Admin: 07/08/18 22:10 Dose: 40 mg Sucralfate (Carafate Oral Susp) 1 gm PO QID [facility] Last Admin: 07/08/18 22:04 Dose: Not Given Thiamine HCl (Vitamin B1 Tab) 100 mg PO BID [facility] Last Admin: 07/08/18 17:32 Dose: 100 mg - Labs Labs: 07/08/18 07:48 07/09/18 06:55 PT 13.6 SECONDS (9.7-12.2) H 06/20/18 10:09 INR 1.2 06/20/18 10:09 APTT 40 SECONDS (21-34) H 06/10/18 23:37 - Additional Findings Additional findings: - Constitutional Appears: Agitated, Confused, Cachectic - Head Exam Head Exam: ATRAUMATIC, NORMOCEPHALIC - Respiratory Exam Respiratory Exam: Clear to Ausculation Bilateral. absent: Rales, Rhonchi, Wheezes - Cardiovascular Exam Cardiovascular Exam: Tachycardia, +S1, +S2 Additional comments: healed scar in R clavicular region - GI/Abdominal Exam GI & Abdominal Exam: Soft. absent: Distended, Guarding, Tenderness, Rebound Additional comments: well healed midline incision scar - Exam Additional comments: condom cath in place, draining well - Extremities Exam Extremities Exam: absent: Calf Tenderness, Pedal Edema Additional comments: wearing mitts, R midline, LE bilaterally cold to touch - Neurological Exam Neurological Exam: Alert. absent: Oriented x3 - Skin Skin Exam: Dry, Intact, Warm Assessment and Plan - Assessment and Plan (Free Text) Assessment: Patient is a 52 year old male with past medical history of of seizures, COPD, hiatal hernia, alcohol abuse, presenting for cardiac arrest and respiratory failure. Patient is currently being medically managed and will complete his antibiotic course on Tuesday 07/10. 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 Plan: 1). Cardiopulmonary Arrest Assessment/Plan * Cardiology Dr. Iglesias cook mayonnaise-->help appreciated * PEA s/p ROSC NSR * Echocardiogram (06/12/18): ejection fraction: 45-50%, left ventricular diastolic function is abnormal. left atrium size looks normal right atrium size looks normal. trace to mild tricupsid regurgitaton * EEG (06/15) shows an abnormal awake and drowsy EEG which is very slow, indicating encephalopathy or medication effect. * Prednisone taper completed * Tele monitor renewed, possible d/c tele tomorrow. should not d/c tele if still refusing Duonebs and cardizem. 2) Hypotension/Leukocytosis * 07/04 - CLOUD OPERATIONS ENGINEER CALLED for Hypotension * Patient was persistently hypotensive throughout the day 70s/50s - * Pt placed in [place] position * Dr. Magdaleno evaluated the patient at bedside * -S/p 500cc NS bolus x3, stopped 250cc/hr NS * -Albumin 25% 50mL bolus x1 * -Reasses and potential transfer to ICU * -IV Zosyn 3.375 IVPB Q6 * ID (Dr. Sutton) * Zosyn 3.375 IVPB Q6 continued, Vancomycin discontinued * --Zosyn day 5 of 7. Will complete Zosyn course on Wednesday. * vanc trough appropriate while on antibiotic * Will continue to reassess the patient and adjust ABx * BP has remained stable at 100s/70s * Tele monitor renewed, possible d/c tele tomorrow * Afebrile * BP Meds * Lisinopril remains held * Cardizem restarted at 30mg PO Q6 * IV fluids d/c'd * Repeat CXR (07/05) - "Chronic linear/curvilinear scarring left lung base, essentially unchanged." * White count resolved (9.6 from 34) * Platelets remain low (116) - possibly 2/2 Zosyn? * UA unremarkable * Blood cultures negative at 72 hours * Haldol and Ativan had been held during CLOUD OPERATIONS ENGINEER 2/2 hypotension --> * RESUMED: Haldol increased to 2mg IVP q6 from 1mg Q6, has not needed * Ativan 1mg IVP q6 prn for agitation, uses at least every other dose * Procalcitonin: 0.83 (07/04) --> 0.71 (07/07) 3). Hyponatremia- resolved Assessment/Plan * Nephrology Dr. Shafer on board-->help appreciated * Secondary to Alcohol Abuse * Received 3 NS boluses in ER * Seizure precautions * Normalized 4). Hypokalemia/Hypomagnesemia/Hypophosphotemia Assessment/Plan * Replete as needed * continue to monitor with AM labs 5). Metabolic Acidosis-resolved Assessment/Plan * Likely secondary to the Cadriopulmonary Arrest, GI bleed, Respiratory Distress * Resolved 6). Seizure Assessment/Plan * Neurology Dr. Richie Rubi on board-->help appreciated * Risk factor: heavy alcohol use and hyponatremia, hypomagnesium * Head CT (06/11/18): no acute intracranial abnormality. Chronic microvascular ischemic changes. sinus mucosal disease as above * He has a history of alcohol withdrawal seizures * Patient is off Precedex * Keppra 250 mg PO Q12H * EEG (06/15) shows an abnormal awake and drowsy EEG which is very slow, indicating encephalopathy or medication effect. * Psych reconsulted (Dr. Huerta) - Pt lacks capacity to make medical decisions for himself 7). Anemia likely secondary to GI Bleed History of Peptic Ulcer Disease Bleeding Ulcer Assessment/Plan * GI Dr. Ho on consult help appreciated * CT Chest/abdomen/pelvis (06/12/18): distended bowel suggesting an ileus. Markedly limited evaluation of the bowel without oral or intravenous contrast. Suggestion of prior Bilroth 2 procedure. Fluid filled dilatation of small bowel andproximal colon. Fluid filled dilatation of the small bowel and prozimal colon. Fluid in the descending colon without a sharp transition sozne. Portions of transverse colon were not well visualized. * Monitor H/H and transfuse as needed * Carafate 1g qid * S/P EGD POD: 2 anastomotic ulcers with visible vessel s/p APC and 5 clips, one ulcer with visible vessel and adherent clot was not intervened on due to adverse location--->If pt develops further bleeding will need IR and Surgery on board, difficult to treat endoscopically * Monitor H/H: received 2 units on 06/16/18 and is currently stable * Protonix 40mg PO BID * No NSAIDS and strong history of alcohol abuse * 07/04 - CLOUD OPERATIONS ENGINEER CALLED for Hypotension * Patient was persistently hypotensive throughout the day 70s/50s - 98/ * Pt placed in [place] position * Dr. Magdaleno evaluated the patient at bedside * -S/p 500cc NS bolus x3, * -Albumin 25% 50mL bolus x1 * -IV Zosyn 3.375 IVPB Q6 * Pt ultimately was NOT transfered back to ICU * Thrombocytopenia - has been consistently low in the 110s (106 today - 07/06) -- > possible 2/2 Zosyn * Zosyn day 02/28 - will finish course on Wednesday 8). Hypocalcemia Assessment/Plan * Monitor 9). Acute Respiratory Failure Aspiration Pneumonia Assessment/Plan * CT Chest 06/11/18: thinned walled cavity in the right upper lobe which may be the sequelae of prior infection 5mm subpleural nodule within the anterior right middle lobe. Focal consolidation within the inferior right middle lobe. Focal consolidation within the right lower lobe. Patchy ground glass opacities in both lungs which and nonspecific but may secondary to alectasis versus contusion versus pneumonitis. * Chest xray (06/23/18): small right pleural effusion. left basilar linear scar/ subsegmental atelectasis. no acute infiltrate. * Extubated 06/12/18 and Re-intubated on 06/14/18 and extubated 06/17/18 * Patient has productive cough * Robotussin 200mg POq4H PRN cough and congestion * Chest physiotherapy * Tracheal Aspirate 06/16/18 showed Yeast and was treated with Fluconazole 100 IV and was discontinued once repeat Sputum 06/22/18 showed Klebsiella which is sensitive to Ciprofloxacin * Was treated with Meropenem 1gram IV Q8H and Vancomycin 1 gram IV Q12H and completed Cipro 500 mg PO 2x/day through 07/02/18 * Patient is refusing his albuterol treatments. This puts the patient at higher risk for aspiration pneumonia, for which he is already at high risk. 10) Open Wounds on Sacrum Stage II Assessment/Plan * Turn [id number] * Treated with MediHoney with Optifoam Dressing * Wound care note: (06/22/18) WOUND CARE NOTE-Patient re-assessed; found to have improving MASD, Moisture associated skin damage to sacral/coccyx regions. Skin continues with blanchable erythema; erosions resolving. recommending to continue aloevesta protective ointment to entire sacral/coccyx regions 3x/day and prn for incontinent episodes. Must reposition this patient frequently to optimize offloading. Will continue to follow. 11) Bilateral Anterior Rib and Sternal Fractures Assessment/Plan * Noted on CT Chest * Secondary to CPR given cardiopulmonary arrest 12) Systolic and Diastolic Heart Failure * Echocardiogram 06/12/18 shows EF at 45-50%, left ventricular diastolic function abnormal with Grade I abnormal relaxation pattern, trace to mild ticuspid regurgitation * Lisinopril 10 mg PO 1x/day * Refused Cardizem 30mg PO Q6H on 07/08 AM, accepted PM dose * Aspirin contraindication secondary to bleeding ulcer 13) Urinary tract infection-->resolved * Treated with Zosyn 3.375g IV Q8H * Repeat urine culture 06/13/18 showed NO growth 14) Bacteremia-->resolved * Repeat blood culture 06/12/18 is negative at 5 days 15) 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 His blood pressure has been stable today. Will continue with Zosyn course to treat possible infection and follow procal. Plan for [facility] following [facility] course, case management will discuss with patient's mother who will make medical decisions for the patient. Patient has been accepted to [facility], however needs to be 24 hour observation off Haldol and Ativan IV. Patient has not needed the Haldol, will observe how he behaves without Ativan prn. Assessment/Plan Discussed with Dr. Tejal Hilton PGY-1
[2018-07-09 08:44] VITALS: BP 130/83; PULSE 104; TEMP 98.1; O2SAT 100
[2018-07-09] MEDS: Multiple Vitamins Tab PO SCH (11:24)
[2018-07-09] MEDS: Lactobacillus Acidophilus 500 MU Cap PO SCH ×2 (11:24→17:51)
[2018-07-09] MEDS: Mupirocin 2% Ointment (NASAL) NAS SCH ×2 (11:24→17:51)
[2018-07-09] MEDS: Pantoprazole 40 mg EC Tab PO SCH (11:24)
[2018-07-09 12:35] LABS: EOS # 0.2 K/uL (0.0-0.7); MEAN CELL VOLUME 88.7 fL (80.0-94.0); MEAN PLATELET VOLUME 7.9 fL (7.2-11.7); MONO # 0.4 K/uL (0.0-0.8); NRBC % 0.1 % (0.0-2.0); RED CELL DISTRIBUTION WIDTH 20.5 % (11.5-14.5)
[2018-07-09 12:42] LABS: BASO % 0.2 % (0.0-2.0); EOS % 2.9 % (0.0-4.0); LYMPH # 1.4 K/uL (1.0-4.3); MEAN CORPUSCULAR HEMOGLOBIN 30.7 pg (27.0-31.0); MEAN CORPUSCULAR HGB CONC 34.6 g/dL (33.0-37.0); MONO % 5.2 % (0.0-10.0); NEUT # 5.5 K/uL (1.8-7.0); NEUT % 72.7 % (50.0-75.0); RBC 3.38 Mil/uL (4.40-5.90); WHITE BLOOD COUNT 7.6 K/uL (4.8-10.8)
[2018-07-09 12:46] LABS: HEMOGLOBIN 10.4 g/dL (12.0-18.0)
[2018-07-09] MEDS: Sucralfate 1 gm/10 ml Oral Susp UD PO SCH ×3 (14:11→17:51)
[2018-07-09 14:37] LABS: BASO % 0.3 % (0.0-2.0); EOS # 0.2 K/uL (0.0-0.7); EOS % 2.6 % (0.0-4.0); HEMOGLOBIN 10.2 g/dL (12.0-18.0); LYMPH # 1.4 K/uL (1.0-4.3); LYMPH % 17.8 % (20.0-40.0); MEAN CORPUSCULAR HEMOGLOBIN 30.8 pg (27.0-31.0); MEAN PLATELET VOLUME 7.8 fL (7.2-11.7); MONO # 0.3 K/uL (0.0-0.8); MONO % 4.5 % (0.0-10.0); NEUT # 5.7 K/uL (1.8-7.0); NEUT % 74.8 % (50.0-75.0); RBC 3.33 Mil/uL (4.40-5.90); RED CELL DISTRIBUTION WIDTH 20.6 % (11.5-14.5); WHITE BLOOD COUNT 7.6 K/uL (4.8-10.8)
[2018-07-09 14:50] LABS: BLOOD UREA NITROGEN 9 mg/dL (9-20); CALCIUM 8.4 mg/dl (8.6-10.4); GFR NON-AFRICAN AMERICAN > 60
--- NOTE | 2018-07-09 20:00 | CP.PCM.PN ---
Subjective - Date & Time of Evaluation Date of Evaluation: 07/09/18 Time of Evaluation: 14:00 - Subjective Subjective: dictated Objective - Vital Signs/Intake and Output Vital Signs (last 24 hours): Temp Pulse Resp BP Pulse Ox 98.1 F 104 H 20 130/83 100 07/09/18 08:00 07/09/18 08:00 07/09/18 08:00 07/09/18 08:00 07/09/18 08:00 - Medications Medications: Current Medications Albuterol/Ipratropium (Duoneb 3 Mg/0.5 Mg (3 Ml) Ud) 3 ml INH RQ4 [facility] Last Admin: 07/09/18 19:24 Dose: Not Given Aripiprazole (Abilify) 5 mg PO HS [facility] Last Admin: 07/08/18 22:10 Dose: 5 mg Aripiprazole (Abilify) 5 mg PO DAILY [facility] Diltiazem HCl (Cardizem) 30 mg PO Q6H [facility] Last Admin: 07/09/18 14:10 Dose: 30 mg Folic Acid (Folic Acid) 1 mg PO DAILY [facility] Last Admin: 07/09/18 11:24 Dose: 1 mg Guaifenesin (Robitussin) 200 mg PO Q4H PRN PRN Reason: Cough and congestion Last Admin: 06/30/18 22:01 Dose: 200 mg Piperacillin Sod/Tazobactam (Sod 3.375 gm/ Sodium Chloride) 100 mls @ 200 mls/ hr IVPB Q6H [facility] PRN Reason: Protocol Stop: 07/11/18 16:01 Last Admin: 07/09/18 17:51 Dose: 200 mls/hr Vancomycin/Sodium Chloride (Vancomycin 1 Gm/Ns 200 Ml) 1 gm in 200 mls @ 133 mls/hr IVPB Q12H [facility] PRN Reason: Protocol Stop: 07/11/18 21:01 Last Admin: 07/07/18 21:07 Dose: 133 mls/hr Lactobacillus Acidophilus (Bacid Acidophilus) 1 cap PO BID [facility] Last Admin: 07/09/18 17:51 Dose: 1 cap Levetiracetam (Keppra) 250 mg PO BID [facility] Last Admin: 07/09/18 17:51 Dose: 250 mg Lisinopril (Zestril) 10 mg PO DAILY [facility] Last Admin: 07/04/18 11:34 Dose: Not Given Multivitamins (Hexavitamin) 1 tab PO DAILY [facility] Last Admin: 07/09/18 11:24 Dose: 1 tab Mupirocin (Bactroban 2% Nasal) 0.25 gm KAYA BID [facility] Last Admin: 07/09/18 17:51 Dose: 0.25 gm Pantoprazole Sodium (Protonix Ec Tab) 40 mg PO Q12 [facility] Last Admin: 07/09/18 11:24 Dose: 40 mg Sucralfate (Carafate Oral Susp) 1 gm PO QID [facility] Last Admin: 07/09/18 17:51 Dose: 1 gm Thiamine HCl (Vitamin B1 Tab) 100 mg PO BID [facility] Last Admin: 07/09/18 17:51 Dose: 100 mg - Labs Labs: 07/09/18 14:32 07/09/18 14:32 PT 13.6 SECONDS (9.7-12.2) H 06/20/18 10:09 INR 1.2 06/20/18 10:09 APTT 40 SECONDS (21-34) H 06/10/18 23:37
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
--- NOTE | 2018-07-09 23:24 | CP.PCM.DIS ---
<Frank Hilton - Last Filed: 07/09/18 23:54> Provider - Provider Date of Admission: 06/11/18 00:28 Attending physician: Moraima Toure DO Time Spent in preparation of Discharge (in minutes): 45 Diagnosis - Discharge Diagnosis (1) Abdominal pain Status: Acute Priority: Medium (2) Cardiac arrest Status: Acute Priority: Medium (3) Abrasion Status: Acute Priority: Medium (4) Alcohol abuse Status: Acute Priority: Medium (5) Alcohol dependence Status: Acute Priority: Medium (6) Alcohol withdrawal Status: Acute Priority: Medium (7) Anemia Status: Acute Priority: Medium Hospital Course - Lab Results Lab Results: Micro Results 07/04/18 16:45 Blood-Thru Central Line Blood Culture - Final NO GROWTH AFTER 5 DAYS 07/04/18 16:45 Blood-Thru Central Line Gram Stain - Final TEST NOT PERFORMED 07/04/18 15:10 Blood-Thru Central Line Blood Culture - Final NO GROWTH AFTER 5 DAYS 07/04/18 15:10 Blood-Thru Central Line Gram Stain - Final TEST NOT PERFORMED 06/30/18 20:35 Naris MRSA Culture - Final MRSA DETECTED 06/22/18 15:47 Sputum Gram Stain - Final 06/22/18 15:47 Sputum Sputum Culture - Final Klebsiella Pneumoniae Ssp Pneu 06/16/18 17:11 Trachasp Gram Stain - Final 06/16/18 17:11 Trachasp Sputum Culture - Final Yeast Species 06/12/18 22:42 Blood Blood Culture - Final NO GROWTH AFTER 5 DAYS 06/12/18 22:42 Blood Gram Stain - Final TEST NOT PERFORMED 06/12/18 22:42 Blood Blood Culture - Final NO GROWTH AFTER 5 DAYS 06/12/18 22:42 Blood Gram Stain - Final TEST NOT PERFORMED 06/11/18 17:15 Blood-Venous Blood Culture - Final NO GROWTH AFTER 5 DAYS 06/11/18 17:15 Blood-Venous Gram Stain - Final TEST NOT PERFORMED 06/11/18 17:00 Blood-Venous S.aureus & Coag-Neg Staph PNA FISH - Final 06/11/18 17:00 Blood-Venous Blood Culture - Final Coagulase Neg Staphylococcus 06/11/18 17:00 Blood-Venous Gram Stain - Final 06/13/18 06:20 Urine,Catheterized Urine Culture - Final No Growth (<1,000 CFU/ML) 06/11/18 Unknown Urine,Catheterized Urine Culture - Final Acinetobacter Baumannii 06/11/18 03:20 Nose MRSA Culture (Admit) - Final MRSA NOT DETECTED Most Recent Lab Values WBC 7.6 K/uL (4.8-10.8) 07/09/18 14:32 RBC 3.33 Mil/uL (4.40-5.90) L 07/09/18 14:32 Hgb 10.2 g/dL (12.0-18.0) L 07/09/18 14:32 Hct 29.3 % (35.0-51.0) L 07/09/18 14:32 MCV 88.0 fL (80.0-94.0) 07/09/18 14:32 MCH 30.8 pg (27.0-31.0) 07/09/18 14:32 MCHC 35.0 g/dL (33.0-37.0) 07/09/18 14:32 RDW 20.6 % (11.5-14.5) H 07/09/18 14:32 Plt Count 110 K/uL (130-400) L 07/09/18 14:32 MPV 7.8 fL (7.2-11.7) 07/09/18 14:32 Neut % (Auto) 74.8 % (50.0-75.0) 07/09/18 14:32 Lymph % (Auto) 17.8 % (20.0-40.0) L 07/09/18 14:32 [place] % (Auto) 4.5 % (0.0-10.0) 07/09/18 14:32 Eos % (Auto) 2.6 % (0.0-4.0) 07/09/18 14:32 Baso % (Auto) 0.3 % (0.0-2.0) 07/09/18 14:32 Neut # (Auto) 5.7 K/uL (1.8-7.0) 07/09/18 14:32 Lymph # (Auto) 1.4 K/uL (1.0-4.3) 07/09/18 14:32 [place] # (Auto) 0.3 K/uL (0.0-0.8) 07/09/18 14:32 Eos # (Auto) 0.2 K/uL (0.0-0.7) 07/09/18 14:32 Baso # (Auto) 0.0 K/uL (0.0-0.2) 07/09/18 14:32 Neutrophils % (Manual) 94 % (50-75) H 07/04/18 20:28 Band Neutrophils % 6 % (0-2) H 07/04/18 12:57 Lymphocytes % (Manual) 3 % (20-40) L 07/04/18 20:28 Reactive Lymphs % 1 % (0-0) H 07/04/18 12:57 Monocytes % (Manual) 2 % (0-10) 07/04/18 20:28 Eosinophils % (Manual) 1 % (0-4) 07/04/18 20:28 Metamyelocytes % 1 % (0-0) H 06/24/18 06:02 Myelocytes % 1 % (0-0) H 06/24/18 06:02 Nucleated RBC % 1 % (0-0) H 06/11/18 12:41 Differential Comment 07/08/18 07:48 Toxic Granulation Present 07/04/18 12:57 Platelet Estimate Decreased (NORMAL) L 07/04/18 20:28 Large Platelets Present 06/19/18 05:46 Polychromasia Slight 07/04/18 20:28 Hypochromasia (manual) Slight 07/04/18 20:28 Poikilocytosis (manual Slight 07/04/18 12:57 Basophilic Stippling Slight 06/11/18 12:41 Anisocytosis (manual) Slight 07/04/18 20:28 Microcytosis (manual) Slight 06/26/18 06:32 Macrocytosis (manual) Moderate 06/27/18 01:05 Target Cells Slight 06/15/18 06:14 Tear Drop Cells Slight 07/04/18 12:57 Ovalocytes Slight 07/04/18 12:57 Tra Cells Slight 07/02/18 07:39 Schistocytes Slight 07/02/18 07:39 PT 13.6 SECONDS (9.7-12.2) H 06/20/18 10:09 INR 1.2 06/20/18 10:09 APTT 40 SECONDS (21-34) H 06/10/18 23:37 Puncture Site Lra 07/04/18 16:41 pCO2 33 mm/Hg (35-45) L 07/04/18 16:41 pO2 138 mm/Hg (80-100) H 07/04/18 16:41 HCO3 22.7 mmol/L (21-28) 07/04/18 16:41 ABG pH 7.41 (7.35-7.45) 07/04/18 16:41 ABG Total CO2 21.9 mmol/L (22-28) L 07/04/18 16:41 ABG O2 Saturation 99.2 % (95-98) H 07/04/18 16:41 ABG Base Excess -2.9 mmol/L (-2.0-3.0) L 07/04/18 16:41 ABG Hemoglobin 9.6 g/dL (11.7-17.4) L 06/17/18 14:36 ABG Carboxyhemoglobin 1.6 % (0.5-1.5) H 06/17/18 14:36 POC ABG HHb (Measured) 0.5 % (0.0-5.0) 06/17/18 14:36 ABG Methemoglobin 0.6 % (0.0-3.0) 06/17/18 14:36 Bob Test Na 07/04/18 16:41 ABG Potassium 4.1 mmol/L (3.6-5.2) 07/04/18 16:41 A-a O2 Difference 157.0 mm/Hg 06/23/18 07:27 Respiratory Index 1.9 06/23/18 07:27 Hgb O2 Saturation 97.3 % (95.0-98.0) 06/17/18 14:36 Sodium 134.0 mmol/l (132-148) 07/04/18 16:41 Chloride 106.0 mmol/L (98-107) 07/04/18 16:41 Glucose 147 mg/dl (75-110) H 07/04/18 16:41 Lactate 2.0 mmol/L (0.7-2.1) 07/04/18 16:41 Liter Flow 4.0 07/04/18 16:41 Vent Mode Bipap 06/23/18 07:27 Mechanical Rate 16 06/17/18 05:11 FiO2 40.0 % 06/23/18 07:27 Tidal Volume 420 06/17/18 05:11 PEEP 5 06/17/18 16:02 Pressure Support 10 06/17/18 16:02 Inspiratory BiPAP 12 06/23/18 07:27 Expiratory BiPAP 6 06/23/18 07:27 Crit Value Called To Berhane rn 06/16/18 05:18 Crit Value Called By Alejandra forestry pilot 06/16/18 05:18 Crit Value Read Back Y 06/16/18 05:18 Blood Gas Notified Time 540 06/16/18 05:18 Sodium 133 mmol/L (132-148) 07/09/18 14:32 Potassium 3.9 mmol/L (3.6-5.2) 07/09/18 14:32 Chloride 102 mmol/L (98-107) 07/09/18 14:32 Carbon Dioxide 22 mmol/L (22-30) 07/09/18 14:32 Anion Gap 14 (10-20) 07/09/18 14:32 BUN 9 mg/dL (9-20) 07/09/18 14:32 Creatinine 0.7 mg/dL (0.8-1.5) L 07/09/18 14:32 Est GFR ( Amer) > 60 07/09/18 14:32 Est GFR (Non-Af Amer) > 60 07/09/18 14:32 POC Glucose (mg/dL) 158 mg/dL (65-110) H 06/10/18 23:20 Random Glucose 158 mg/dL (75-110) H 07/09/18 14:32 Hemoglobin A1c 5.1 % (4.2-6.5) 06/19/18 05:46 Lactic Acid 1.2 mmol/L (0.7-2.1) 06/15/18 00:37 Calcium 8.4 mg/dl (8.6-10.4) L 07/09/18 14:32 Phosphorus 3.0 mg/dL (2.5-4.5) 07/09/18 06:55 Magnesium 1.4 mg/dL (1.6-2.3) L 07/09/18 06:55 Total Bilirubin 0.7 mg/dL (0.2-1.3) 07/09/18 06:55 AST 30 U/L (17-59) 07/09/18 06:55 ALT 46 U/L (21-72) 07/09/18 06:55 Alkaline Phosphatase 101 U/L (38-126) 07/09/18 06:55 Ammonia < 9 umol/L (9-33) L 07/04/18 15:24 Troponin I < 0.0120 ng/mL (0.00-0.120) 06/15/18 00:37 NT-Pro-B Natriuret Pep 3480 pg/mL (0-900) H 06/10/18 23:37 Total Protein 6.1 g/dL (6.3-8.3) L 07/09/18 06:55 Albumin 3.1 g/dL (3.5-5.0) L 07/09/18 06:55 Globulin 3.0 gm/dL (2.2-3.9) 07/09/18 06:55 Albumin/Globulin Ratio 1.0 (1.0-2.1) 07/09/18 06:55 Triglycerides 107 mg/dL (0-149) 06/12/18 06:22 Cholesterol 108 mg/dL (0-199) 06/12/18 06:22 LDL Cholesterol Direct < 30 mg/dL (0-129) 06/12/18 06:22 HDL Cholesterol 39 mg/dL (30-70) 06/12/18 06:22 Procalcitonin 0.71 NG/ML (0.19-0.49) H 07/07/18 08:51 Free T4 0.98 ng/dL (0.78-2.19) 06/12/18 06:22 TSH 3rd Generation 2.92 mIU/L (0.46-4.68) 06/11/18 08:27 Cortisol AM Sample 52.9 ug/dL (4.46-22.7) H 06/11/18 08:27 Arterial Blood Potassium 4.1 mmol/L (3.6-5.2) 07/04/18 16:41 Urine Color Yellow (YELLOW) 07/04/18 15:24 Urine Clarity Clear (Clear) 07/04/18 15:24 Urine pH 7.0 (5.0-8.0) 07/04/18 15:24 Ur Specific [place] 1.014 (1.003-1.030) 07/04/18 15:24 Urine Protein Negative mg/dL (NEGATIVE) 07/04/18 15:24 Urine Glucose (UA) Normal mg/dL (Normal) 07/04/18 15:24 Urine Ketones Negative mg/dL (NEGATIVE) 07/04/18 15:24 Urine Blood Negative (NEGATIVE) 07/04/18 15:24 Urine Nitrate Negative (NEGATIVE) 07/04/18 15:24 Urine Bilirubin Negative (NEGATIVE) 07/04/18 15:24 Urine Urobilinogen Normal mg/dL (0.2-1.0) 07/04/18 15:24 Ur Leukocyte Esterase Neg Cherelle/uL (Negative) 07/04/18 15:24 Urine WBC (Auto) 3 /hpf (0-5) 07/04/18 15:24 Urine RBC (Auto) 1 /hpf (0-3) 07/04/18 15:24 Ur Squamous Epith Cells 1 /hpf (0-5) 07/04/18 15:24 Urine Bacteria Rare (<OCC) 07/04/18 15:24 Hyaline Casts 6-10 /lpf (0-2) H 06/11/18 00:39 Urine Osmolality 298 mosm/kg (300-1000) L 06/12/18 11:56 Ur Random Creatinine 12.4 mg/dL 06/11/18 08:27 Ur Random Sodium 80 mmol/L 06/12/18 11:56 Stool Occult Blood Positive (NEGATIVE) H 07/04/18 16:47 Vancomycin Trough 21.5 ug/mL (5.0-10.0) H 07/05/18 15:20 Random Vancomycin 14.6 ug/mL 07/06/18 13:32 Levetiracetam 24.0 mcg/mL 06/23/18 09:06 Alcohol, Quantitative < 10 mg/dl (0-10) 06/11/18 00:07 Blood Type A POSITIVE 06/16/18 08:35 Antibody Screen Negative 06/16/18 08:35 - Hospital Course Hospital Course: PYG1 Discharge Summary for Dr. Toure Resident History & Physical for Hospitalist Service Patient is a 52 year old male with past medical history seizures, COPD, hiatal hernia, partial gastrectomy, peptic ulcer disease, alcohol abuse presenting with chief complaint of PEA cardiac arrest and respiratory failure on 06/10. History was obtained from patient's sister and prior records as patient was sedated and intubated upon arrival. Patient was complaining of shortness of breath and was found to have low blood pressure around 9PM. However he refused to go to the hospital for evaluation. He was then found to have seizures after which the ambulance was called. ACLS protocol was initiated, patient received 1 amp epi with ROSC. Patient was intubated and arrived at ED. Patient has long history of alcohol abuse and seizures likely secondary to alcohol withdrawal. Patient is reportedly non compliant with his seizure medications. Past medical history: seizures, COPD, hiatal hernia, alcohol abuse Past surgical: excision of small intestine Social: two 24 oz. beers daily for 30 years, 10 cigarettes a day for 30 years, no recreational drug use Allergies: NKDA PMD: Dr. Rodríguez ED and Hospital Course: Patient was subsequently admitted to ICU for close monitoring. Abd/pelvis CT shows distended bowel suggesting an ileus. s/o central line placement. Levophed drip. Patient admitted to ICU. Patient was treated for seizures likely secondary to alcohol withdrawal. Head CT shows no acute intracranial abnormality. Chronic microvascular ischemic changes. Sinus mucosal disease. Keppra 500 mg IVPB Q12H. Patient was found to be anemic. Hgb 7.7. 1 unit PRBCs given. Monitored and transfused as needed. FOBT was positive, GI consulted. Electrolytes were monitored and repleted as needed. EEG 06/15 shows an abnormal awake and drowsy EEG which is very slow, indicating encephalopathy or medication effect. Recommend repeat EEG off sedation.Neuro Dr. Rubi consulted, recommended follow-up out-patient. HR consistently 100s-110' s. Continued Cardizem, Lisinopril. Cardiology Dr. Iglesias consulted. ECHO 06/11: EF of 45-50%, LV diastolic function abnormal: Transmitral doppler grade I- abnormal relaxation pattern. trace to mild tricuspid regurgitation. Troponin negative. Patient was receiving 3L O2 NC, satting well. Patient received duonebs Q4 MAYANK, Robitussin 200mg Q4 PRN, Solumedrol 20mg IV Q8. CXR 06/23 Small right pleural effusion. Left basilar linear scar/ subsegmental atelectasis. No acute infiltrate. -Chest CTA 06/14 negative for PE. Extensive right lower lobe consolidation vs atelectasis, lesser atelectasis in the right middle lobe/lingula. Multifocal ground-glass opacity. Possible infectious etiology. Fluid/secretion in right lower lobe bronchus and possible right upper lobe bronchus. Consider aspiration as etiology. Mild mediastinal and right hilar lymphadenopathy. Continued IV Merrem, Vanco discontinued as per ID. Patient found to have upper GI bleed, s/p bedside EGD, 1 ulcer clipped by GI. Remains extubated, no longer on Precedex and Librium. Improved mentation on 06/26/18. Thus, patient was transferred to telemetry. Was treated with Meropenem 1gram IV Q8H and Vancomycin 1 gram IV Q12H and completed Cipro 500 mg PO 2x/day through 07/02/18. Please see progress notes and complete chart for details. on 07/04 LACING STRING CUTTER was called at 4:26 for persistent hypotension. Patient received 500 cc NS bolus x2 prior to LACING STRING CUTTER. Additional 500CC bolus administered during LACING STRING CUTTER, patient put on 250 CC/hr maintenance fluids after third bolus. CT head repeated given patient's baseline is usually more awake, alert, and cursing staff. Patient's mental status improved. Please see chart for more detail. On subsequent days, patient was being medically managed and was completing his antibiotic course on Tuesday 07/10. Patient discharge to fdc placement is pending documentation verification with LT[facility]. On day of discharge, patient was seen and examined. Per nursing, patient was agitated all night and did not sleep. Patient was administered Ativan to help calm him down. Patient was refusing duoneb treatment and cardizem per nursing. At bedside, patient was agitated and demanding food and was verbalizing profanities towards nurse and physician. He refused to cooperate with questions and exam. Patient currently medically stable. Patient was hemodynamically stable for discharge to rehab facility. Case management discussed with patient' s mother who makes medical decisions for the patient. Patient has been accepted to [facility]. Please see complete chart for more detailed summary and for discharge medications. Discussed with Dr. Tejal Hilton PGY1 Discharge Exam - Head Exam Head Exam: ATRAUMATIC, NORMOCEPHALIC - Additional Findings Additional findings: - Constitutional Appears: Agitated, Confused, Cachectic - Head Exam Head Exam: ATRAUMATIC, NORMOCEPHALIC - Respiratory Exam Respiratory Exam: Clear to Ausculation Bilateral. absent: Rales, Rhonchi, Wheezes - Cardiovascular Exam Cardiovascular Exam: Tachycardia, +S1, +S2 Additional comments: healed scar in R clavicular region - GI/Abdominal Exam GI & Abdominal Exam: Soft. absent: Distended, Guarding, Tenderness, Rebound Additional comments: well healed midline incision scar - Exam Additional comments: condom cath in place, draining well - Extremities Exam Extremities Exam: absent: Calf Tenderness, Pedal Edema Additional comments: wearing mitts, R midline, LE bilaterally cold to touch - Neurological Exam Neurological Exam: Alert. absent: Oriented x3 - Skin Skin Exam: Dry, Intact, Warm Discharge Plan - Discharge Medications Prescriptions: levETIRAcetam [Keppra] 250 mg PO BID #60 tab LORazepam [Ativan] 1 mg PO Q6 PRN #20 tab PRN Reason: Agitation Piperacillin/Tazobact [Zosyn] 3.375 gm IVPB Q6H 4 Days vial - Follow Up Plan Condition: CRITICAL Disposition: REHAB FACILITY/REHAB UNIT Instructions: Sudden Cardiac Arrest, Metabolic Acidosis, Seizures, Adult (DC), Sepsis, Adult (DC), Acute Abdominal Pain (DC), Acute Abdominal Pain (GEN) Referrals: Non [facility] Provider, [Non-Staff] - <Moraima Toure V - Last Filed: 07/10/18 20:19> Provider - Provider Date of Admission: 06/11/18 00:28 Attending physician: Moraima Toure DO Diagnosis - Discharge Diagnosis (1) Cardiac arrest Status: Acute Priority: Medium (2) Respiratory failure Status: Acute (3) Seizure Status: Acute (4) GI bleeding Status: Acute (5) Hyponatremia Status: Acute (6) Aspiration pneumonia Status: Acute (7) Encephalopathy Status: Acute (8) Prophylactic measure Status: Acute Hospital Course - Lab Results Lab Results: Micro Results 07/04/18 16:45 Blood-Thru Central Line Blood Culture - Final NO GROWTH AFTER 5 DAYS 07/04/18 16:45 Blood-Thru Central Line Gram Stain - Final TEST NOT PERFORMED 07/04/18 15:10 Blood-Thru Central Line Blood Culture - Final NO GROWTH AFTER 5 DAYS 07/04/18 15:10 Blood-Thru Central Line Gram Stain - Final TEST NOT PERFORMED 06/30/18 20:35 Naris MRSA Culture - Final MRSA DETECTED 06/22/18 15:47 Sputum Gram Stain - Final 06/22/18 15:47 Sputum Sputum Culture - Final Klebsiella Pneumoniae Ssp Pneu 06/16/18 17:11 Trachasp Gram Stain - Final 06/16/18 17:11 Trachasp Sputum Culture - Final Yeast Species 06/12/18 22:42 Blood Blood Culture - Final NO GROWTH AFTER 5 DAYS 06/12/18 22:42 Blood Gram Stain - Final TEST NOT PERFORMED 06/12/18 22:42 Blood Blood Culture - Final NO GROWTH AFTER 5 DAYS 06/12/18 22:42 Blood Gram Stain - Final TEST NOT PERFORMED 06/11/18 17:15 Blood-Venous Blood Culture - Final NO GROWTH AFTER 5 DAYS 06/11/18 17:15 Blood-Venous Gram Stain - Final TEST NOT PERFORMED 06/11/18 17:00 Blood-Venous S.aureus & Coag-Neg Staph PNA FISH - Final 06/11/18 17:00 Blood-Venous Blood Culture - Final Coagulase Neg Staphylococcus 06/11/18 17:00 Blood-Venous Gram Stain - Final 06/13/18 06:20 Urine,Catheterized Urine Culture - Final No Growth (<1,000 CFU/ML) 06/11/18 Unknown Urine,Catheterized Urine Culture - Final Acinetobacter Baumannii 06/11/18 03:20 Nose MRSA Culture (Admit) - Final MRSA NOT DETECTED Most Recent Lab Values WBC 7.6 K/uL (4.8-10.8) 07/09/18 14:32 RBC 3.33 Mil/uL (4.40-5.90) L 07/09/18 14:32 Hgb 10.2 g/dL (12.0-18.0) L 07/09/18 14:32 Hct 29.3 % (35.0-51.0) L 07/09/18 14:32 MCV 88.0 fL (80.0-94.0) 07/09/18 14:32 MCH 30.8 pg (27.0-31.0) 07/09/18 14:32 MCHC 35.0 g/dL (33.0-37.0) 07/09/18 14:32 RDW 20.6 % (11.5-14.5) H 07/09/18 14:32 Plt Count 110 K/uL (130-400) L 07/09/18 14:32 MPV 7.8 fL (7.2-11.7) 07/09/18 14:32 Neut % (Auto) 74.8 % (50.0-75.0) 07/09/18 14:32 Lymph % (Auto) 17.8 % (20.0-40.0) L 07/09/18 14:32 [place] % (Auto) 4.5 % (0.0-10.0) 07/09/18 14:32 Eos % (Auto) 2.6 % (0.0-4.0) 07/09/18 14:32 Baso % (Auto) 0.3 % (0.0-2.0) 07/09/18 14:32 Neut # (Auto) 5.7 K/uL (1.8-7.0) 07/09/18 14:32 Lymph # (Auto) 1.4 K/uL (1.0-4.3) 07/09/18 14:32 [place] # (Auto) 0.3 K/uL (0.0-0.8) 07/09/18 14:32 Eos # (Auto) 0.2 K/uL (0.0-0.7) 07/09/18 14:32 Baso # (Auto) 0.0 K/uL (0.0-0.2) 07/09/18 14:32 Neutrophils % (Manual) 94 % (50-75) H 07/04/18 20:28 Band Neutrophils % 6 % (0-2) H 07/04/18 12:57 Lymphocytes % (Manual) 3 % (20-40) L 07/04/18 20:28 Reactive Lymphs % 1 % (0-0) H 07/04/18 12:57 Monocytes % (Manual) 2 % (0-10) 07/04/18 20:28 Eosinophils % (Manual) 1 % (0-4) 07/04/18 20:28 Metamyelocytes % 1 % (0-0) H 06/24/18 06:02 Myelocytes % 1 % (0-0) H 06/24/18 06:02 Nucleated RBC % 1 % (0-0) H 06/11/18 12:41 Differential Comment 07/08/18 07:48 Toxic Granulation Present 07/04/18 12:57 Platelet Estimate Decreased (NORMAL) L 07/04/18 20:28 Large Platelets Present 06/19/18 05:46 Polychromasia Slight 07/04/18 20:28 Hypochromasia (manual) Slight 07/04/18 20:28 Poikilocytosis (manual Slight 07/04/18 12:57 Basophilic Stippling Slight 06/11/18 12:41 Anisocytosis (manual) Slight 07/04/18 20:28 Microcytosis (manual) Slight 06/26/18 06:32 Macrocytosis (manual) Moderate 06/27/18 01:05 Target Cells Slight 06/15/18 06:14 Tear Drop Cells Slight 07/04/18 12:57 Ovalocytes Slight 07/04/18 12:57 Bryan Cells Slight 07/02/18 07:39 Schistocytes Slight 07/02/18 07:39 PT 13.6 SECONDS (9.7-12.2) H 06/20/18 10:09 INR 1.2 06/20/18 10:09 APTT 40 SECONDS (21-34) H 06/10/18 23:37 Puncture Site Lra 07/04/18 16:41 pCO2 33 mm/Hg (35-45) L 07/04/18 16:41 pO2 138 mm/Hg (80-100) H 07/04/18 16:41 HCO3 22.7 mmol/L (21-28) 07/04/18 16:41 ABG pH 7.41 (7.35-7.45) 07/04/18 16:41 ABG Total CO2 21.9 mmol/L (22-28) L 07/04/18 16:41 ABG O2 Saturation 99.2 % (95-98) H 07/04/18 16:41 ABG Base Excess -2.9 mmol/L (-2.0-3.0) L 07/04/18 16:41 ABG Hemoglobin 9.6 g/dL (11.7-17.4) L 06/17/18 14:36 ABG Carboxyhemoglobin 1.6 % (0.5-1.5) H 06/17/18 14:36 POC ABG HHb (Measured) 0.5 % (0.0-5.0) 06/17/18 14:36 ABG Methemoglobin 0.6 % (0.0-3.0) 06/17/18 14:36 Bob Test Na 07/04/18 16:41 ABG Potassium 4.1 mmol/L (3.6-5.2) 07/04/18 16:41 A-a O2 Difference 157.0 mm/Hg 06/23/18 07:27 Respiratory Index 1.9 06/23/18 07:27 Hgb O2 Saturation 97.3 % (95.0-98.0) 06/17/18 14:36 Sodium 134.0 mmol/l (132-148) 07/04/18 16:41 Chloride 106.0 mmol/L (98-107) 07/04/18 16:41 Glucose 147 mg/dl (75-110) H 07/04/18 16:41 Lactate 2.0 mmol/L (0.7-2.1) 07/04/18 16:41 Liter Flow 4.0 07/04/18 16:41 Vent Mode Bipap 06/23/18 07:27 Mechanical Rate 16 06/17/18 05:11 FiO2 40.0 % 06/23/18 07:27 Tidal Volume 420 06/17/18 05:11 PEEP 5 06/17/18 16:02 Pressure Support 10 06/17/18 16:02 Inspiratory BiPAP 12 06/23/18 07:27 Expiratory BiPAP 6 06/23/18 07:27 Crit Value Called To Berhane rn 06/16/18 05:18 Crit Value Called By Alejandra forestry pilot 06/16/18 05:18 Crit Value Read Back Y 06/16/18 05:18 Blood Gas Notified Time 540 06/16/18 05:18 Sodium 133 mmol/L (132-148) 07/09/18 14:32 Potassium 3.9 mmol/L (3.6-5.2) 07/09/18 14:32 Chloride 102 mmol/L (98-107) 07/09/18 14:32 Carbon Dioxide 22 mmol/L (22-30) 07/09/18 14:32 Anion Gap 14 (10-20) 07/09/18 14:32 BUN 9 mg/dL (9-20) 07/09/18 14:32 Creatinine 0.7 mg/dL (0.8-1.5) L 07/09/18 14:32 Est GFR ( Amer) > 60 07/09/18 14:32 Est GFR (Non-Af Amer) > 60 07/09/18 14:32 POC Glucose (mg/dL) 158 mg/dL (65-110) H 06/10/18 23:20 Random Glucose 158 mg/dL (75-110) H 07/09/18 14:32 Hemoglobin A1c 5.1 % (4.2-6.5) 06/19/18 05:46 Lactic Acid 1.2 mmol/L (0.7-2.1) 06/15/18 00:37 Calcium 8.4 mg/dl (8.6-10.4) L 07/09/18 14:32 Phosphorus 3.0 mg/dL (2.5-4.5) 07/09/18 06:55 Magnesium 1.4 mg/dL (1.6-2.3) L 07/09/18 06:55 Total Bilirubin 0.7 mg/dL (0.2-1.3) 07/09/18 06:55 AST 30 U/L (17-59) 07/09/18 06:55 ALT 46 U/L (21-72) 07/09/18 06:55 Alkaline Phosphatase 101 U/L (38-126) 07/09/18 06:55 Ammonia < 9 umol/L (9-33) L 07/04/18 15:24 Troponin I < 0.0120 ng/mL (0.00-0.120) 06/15/18 00:37 NT-Pro-B Natriuret Pep 3480 pg/mL (0-900) H 06/10/18 23:37 Total Protein 6.1 g/dL (6.3-8.3) L 07/09/18 06:55 Albumin 3.1 g/dL (3.5-5.0) L 07/09/18 06:55 Globulin 3.0 gm/dL (2.2-3.9) 07/09/18 06:55 Albumin/Globulin Ratio 1.0 (1.0-2.1) 07/09/18 06:55 Triglycerides 107 mg/dL (0-149) 06/12/18 06:22 Cholesterol 108 mg/dL (0-199) 06/12/18 06:22 LDL Cholesterol Direct < 30 mg/dL (0-129) 06/12/18 06:22 HDL Cholesterol 39 mg/dL (30-70) 08/19/18 06:22 Procalcitonin 0.71 NG/ML (0.19-0.49) H 07/07/18 08:51 Free T4 0.98 ng/dL (0.78-2.19) 06/12/18 06:22 TSH 3rd Generation 2.92 mIU/L (0.46-4.68) 06/11/18 08:27 Cortisol AM Sample 52.9 ug/dL (4.46-22.7) H 06/11/18 08:27 Arterial Blood Potassium 4.1 mmol/L (3.6-5.2) 07/04/18 16:41 Urine Color Yellow (YELLOW) 07/04/18 15:24 Urine Clarity Clear (Clear) 07/04/18 15:24 Urine pH 7.0 (5.0-8.0) 07/04/18 15:24 Ur Specific [place] 1.014 (1.003-1.030) 07/04/18 15:24 Urine Protein Negative mg/dL (NEGATIVE) 07/04/18 15:24 Urine Glucose (UA) Normal mg/dL (Normal) 07/04/18 15:24 Urine Ketones Negative mg/dL (NEGATIVE) 07/04/18 15:24 Urine Blood Negative (NEGATIVE) 07/04/18 15:24 Urine Nitrate Negative (NEGATIVE) 07/04/18 15:24 Urine Bilirubin Negative (NEGATIVE) 07/04/18 15:24 Urine Urobilinogen Normal mg/dL (0.2-1.0) 07/04/18 15:24 Ur Leukocyte Esterase Neg Cherelle/uL (Negative) 07/04/18 15:24 Urine WBC (Auto) 3 /hpf (0-5) 07/04/18 15:24 Urine RBC (Auto) 1 /hpf (0-3) 07/04/18 15:24 Ur Squamous Epith Cells 1 /hpf (0-5) 07/04/18 15:24 Urine Bacteria Rare (<OCC) 07/04/18 15:24 Hyaline Casts 6-10 /lpf (0-2) H 06/11/18 00:39 Urine Osmolality 298 mosm/kg (300-1000) L 06/12/18 11:56 Ur Random Creatinine 12.4 mg/dL 06/11/18 08:27 Ur Random Sodium 80 mmol/L 06/12/18 11:56 Stool Occult Blood Positive (NEGATIVE) H 07/04/18 16:47 Vancomycin Trough 21.5 ug/mL (5.0-10.0) H 07/05/18 15:20 Random Vancomycin 14.6 ug/mL 07/06/18 13:32 Levetiracetam 24.0 mcg/mL 06/23/18 09:06 Alcohol, Quantitative < 10 mg/dl (0-10) 06/11/18 00:07 Blood Type A POSITIVE 06/16/18 08:35 Antibody Screen Negative 06/16/18 08:35 Attending/Attestation - Attestation I have personally seen and examined this patient.: Yes I have fully participated in the care of the patient.: Yes I have reviewed all pertinent clinical information, including history, physical exam and plan: Yes Notes (Text): This is a late computer entry for 07/09/2018. Patient seen, examined, and case discussed with medical administrative technician. Patient seen this morning. He remains medically stable. He demanding for chocolate pudding. Refusing nebulizer treatments. Patient's H/H is stable. Remains at 10s which is his normal following his prior ulcer bleeding; prior 13 is likely hemoconcentrated. I spoke with his sister Jenifer ([phone]) in regards to patient's diagnoses and medications changes. Advised her brother cannot take alcohol and cannot take NSAIDs given his ulcers. She is also aware that given the cardiopulmonary arrest her brother, seizure, and alcohol use, it is likely this is the cognitive status of her brother that those events and comorbidities will take a toil on the brain. Lastly, I did speak with her and let her know he will be continuing the IV abx for aspiration pneumonia but he is a fellow who remains at high risk given that cannot cough up his phlegm and refuses his nebulizer treatments. Patient is medically stable. Patient finish Zosyn IV for 4 more days to cover for aspiration pneumonia. Patient to be transportted with mittens and has ativan PO as needed if further episodes of agitation. This a summary of patient's hospitalization. Please see EMR for further details of record. Discharge Diagnoses 1). Cardiopulmonary Arrest-->Stabilized Assessment/Plan * Cardiology Dr. Iglesias retail operations specialist-->help appreciated * PEA s/p ROSC NSR * Echocardiogram (06/12/18): ejection fraction: 45-50%, left ventricular diastolic function is abnormal. left atrium size looks normal right atrium size looks normal. trace to mild tricupsid regurgitaton * EEG (06/15) shows an abnormal awake and drowsy EEG which is very slow, indicating encephalopathy or medication effect. Recommend repeat EEG off sedation * Patient has completed steroid taper. 2). Hyponatremia-->resolved Assessment/Plan 3). Hypokalemia/Hypomagnesemia/Hypophosphotemia-->resolved Assessment/Plan * Replete as needed 4). Metabolic Acidosis-Resolved Assessment/Plan * Likely secondary to the Cadriopulmonary Arrest, GI bleed, Respiratory Distress * Resolved 5). Seizure disorder-->Stable Assessment/Plan * Neurology Dr. Richie Rubi on board-->help appreciated * Risk factor: heavy alcohol use and hyponatremia, hypomagnesium * Head CT (06/11/18): no acute intracranial abnormality. Chronic microvascular ischemic changes. sinus mucosal disease as above * He has a history of alcohol withdrawal seizures and seizures prior chair alcohol per mother. * Keppra 250 mg PO Q12H * Seizure precautions 6). Anemia likely secondary to GI Bleed-->Stable History of Peptic Ulcer Disease--Stable Bleeding Ulcer-->Stable Assessment/Plan * GI Dr. Ho on consult help appreciated * CT Chest/abdomen/pelvis (06/12/18): distended bowel suggesting an ileus. Markedly limited evaluation of the bowel without oral or intravenous contrast. Suggestion of prior Bilroth 2 procedure. Fluid filled dilatation of small bowel andproximal colon. Fluid filled dilatation of the small bowel and prozimal colon. Fluid in the descending colon without a sharp transition sozne. Portions of transverse colon were not well visualized. * Monitor H/H and transfuse as needed * Carafate 1g qid * S/P EGD POD: 2 anastomotic ulcers with visible vessel s/p APC and 5 clips, one ulcer with visible vessel and adherent clot was not intervened on due to adverse location--->If pt develops further bleeding will need IR and Surgery on board, difficult to treat endoscopically * Monitor H/H: received 2 units on 06/16/18 and is currently stable * protonix 40mg PO BID * No NSAIDS and strong history of alcohol abuse * Patient's H/H remains stable; continue to monitor 7). Hypocalcemia-->Stable Assessment/Plan * Monitor 8). Acute Respiratory Failure-->Resolved Aspiration Pneumonia-->Stable Assessment/Plan * CT Chest 06/11/18: thinned walled cavity in the right upper lobe which may be the sequelae of prior infection 5mm subpleural nodule within the anterior right middle lobe. Focal consolidation within the inferior right middle lobe. Focal consolidation within the right lower lobe. Patchy ground glass opacities in both lungs which and nonspecific but may secondary to alectasis versus contusion versus pneumonitis. * Chest xray (06/23/18): small right pleural effusion. left basilar linear scar/ subsegmental atelectasis. no acute infiltrate. * Extubated 06/12/18 and Re-intubated on 06/14/18 and extubated 06/17/18 * Patient is on nebulizer treatment; however he has been refusing with PT. I have reiterated to both mother and patient at bedside that he should not be refusing nebulizer treatments because he remains at high risk for aspiration. * Patient has productive cough. * Robotussin 200mg POq4H PRN cough and congestion * Chest physiotherapy * Has completed steroid taper * Aspiration precautions * Patient to complete IV abx 4 more days for aspiration pneumonia 9) Open Wounds on Sacrum Stage II-->stable Assessment/Plan * Turn P3Wofon * MediHoney with Optifoam Dressing * Latest wound care note: (06/22/18) WOUND CARE NOTE-Patient re-assessed; found to have improving MASD, Moisture associated skin damage to sacral/coccyx regions. Skin continues with blanchable erythema; erosions resolving. recommending to continue aloevesta protective ointment to entire sacral/coccyx regions 3x/day and prn for incontinent episodes. Must reposition this patient frequently to optimize offloading. Will continue to follow. 10) Bilateral Anterior Rib and Sternal Fractures--Stable Assessment/Plan * Noted on CT Chest * Secondary to CPR given cardiopulmonary arrest 11) Systolic and Diastolic Heart Failure-->stable Assessment/Plan * Echocardiogram 06/12/18 shows EF at 45-50%, left ventricular diastolic function abnormal with Grade I abnormal relaxation pattern, trace to mild ticuspid regurgitation * hold Lisinopril 10 mg PO 1x/day given hypotension * Continue Cardizem 30mg PO Q6H (hold SBP<100 and HR<60) * Aspirin contraindication secondary to bleeding ulcer 12) Urinary tract infection-->resolved * Repeat urine culture 06/13/18 showed NO growth * Completed antibiotic for UTI 13) Bacteremia-->resolved * Repeat blood culture 06/12/18 is negative at 5 days 14) Alcoholism Alcoholic Liver Disease Assessment/Plan * Hx heavy use * Off Precedex * off Librium 25 mg PO Q8H 06/22/18 * MVI PO 1x/day * Thiamine 100mg PO BID * Folic acid 1mg PO daily * MVI 5 ml PO daily * Abdominal US report available in the EMR; limited but liver changes 15) Leukocytosis-->resolved Assessment/Plan * patient has elevated white count on 07/04/18 * Has completed steroid taper * However he remains at high risk for aspiration pneumonia; no reports of diarrhea per staff * Blood culture (07/04/18): no growth * procalcitonin: 0.83 from July 04, we will repeat tomorrow's blood work. * Zosyn 3.375 IV Q6H (active since 07/04/18) to complete until July 11. * Discontinue vancomycin 16) Hypotension-->resolved Assessment/Plan * held Cardizem and Lisinopril 07/04/18 for hypotension noted 07/04/18; Blood pressure improved with IV fluids * Will introduce anti-hypertensives since blood pressure has normalized but patient remains tachycardic 17) Prophylactic measure * Protonix 40 mg PO Q12H * Lactobacillus 1 cap PO 2x/day * Chemical anticoagulation held secondary to GI bleed * Turn [id number] * Aspiration precautions * Seizure precautions * Wound care on board * PT/OT eval * Mother and Sister Jenifer ([phone]) are decision-makers for the patient.
== END 2018-07-09 21:51 | DRG 882 ==
LOC: SUPCPDRO 23:16 → C.ER 23:16 → C.9E 06-11 00:28 → C.9I 06-11 00:28 → C.5S 06-30 19:39
PROVIDERS: ADMIT Hospitalist; ATTEND Hospitalist
PROC: 5A1945Z Respiratory Ventilation, 24-96 Consecutive Hours (ICD-10-PCS; 2018-06-10)
PROC: 0D568ZZ Destruction of Stomach, Via Natural or Artificial Opening Endoscopic (ICD-10-PCS; 2018-06-11)
PROC: 05HN33Z Insertion of Infusion Device into Left Internal Jugular Vein, Percutaneous Approach (ICD-10-PCS; 2018-06-11)
PROC: 30233N1 Transfusion of Nonautologous Red Blood Cells into Peripheral Vein, Percutaneous Approach (ICD-10-PCS; 2018-06-11)
PROC: 0W3P8ZZ Control Bleeding in Gastrointestinal Tract, Via Natural or Artificial Opening Endoscopic (ICD-10-PCS; principal; 2018-06-11 15:00)
PROC: 5A09457 Assistance with Respiratory Ventilation, 24-96 Consecutive Hours, Continuous Positive Airway Pressure (ICD-10-PCS; 2018-06-12)
PROC: 3E0336Z Introduction of Nutritional Substance into Peripheral Vein, Percutaneous Approach (ICD-10-PCS; 2018-06-14)
PROC: 0BH18EZ Insertion of Endotracheal Airway into Trachea, Via Natural or Artificial Opening Endoscopic (ICD-10-PCS; 2018-06-14)
PROC: 5A1945Z Respiratory Ventilation, 24-96 Consecutive Hours (ICD-10-PCS; 2018-06-14)
PROC: 3E0G76Z Introduction of Nutritional Substance into Upper GI, Via Natural or Artificial Opening (ICD-10-PCS; 2018-06-15)
DX: J96.01 Acute respiratory failure with hypoxia (principal); I46.9 Cardiac arrest, cause unspecified; G93.1 Anoxic brain damage, not elsewhere classified; I50.40 Unspecified combined systolic (congestive) and diastolic (congestive) heart failure; J15.0 Pneumonia due to Klebsiella pneumoniae; J69.0 Pneumonitis due to inhalation of food and vomit; K25.4 Chronic or unspecified gastric ulcer with hemorrhage; R78.81 Bacteremia; F10.239 Alcohol dependence with withdrawal, unspecified; E87.1 Hypo-osmolality and hyponatremia; E87.2 Acidosis; E87.6 Hypokalemia; D50.0 Iron deficiency anemia secondary to blood loss (chronic); J44.0 Chronic obstructive pulmonary disease with (acute) lower respiratory infection; J98.11 Atelectasis; N39.0 Urinary tract infection, site not specified; R57.9 Shock, unspecified; S22.20XA Unspecified fracture of sternum, initial encounter for closed fracture; S22.5XXA Flail chest, initial encounter for closed fracture; G40.509 Epileptic seizures related to external causes, not intractable, without status epilepticus; L89.152 Pressure ulcer of sacral region, stage 2; F10.26 Alcohol dependence with alcohol-induced persisting amnestic disorder; E83.51 Hypocalcemia; E83.42 Hypomagnesemia; E83.39 Other disorders of phosphorus metabolism; I95.9 Hypotension, unspecified; E26.1 Secondary hyperaldosteronism; K70.9 Alcoholic liver disease, unspecified; I95.81 Postprocedural hypotension; K80.20 Calculus of gallbladder without cholecystitis without obstruction; M41.9 Scoliosis, unspecified; N28.1 Cyst of kidney, acquired; F17.210 Nicotine dependence, cigarettes, uncomplicated; Y65.8 Other specified misadventures during surgical and medical care; Y90.0 Blood alcohol level of less than 20 mg/100 ml; H91.90 Unspecified hearing loss, unspecified ear; Z79.899 Other long term (current) drug therapy; Z87.11 Personal history of peptic ulcer disease; Z90.3 Acquired absence of stomach [part of]; Z91.14 Patient's other noncompliance with medication regimen; Z91.19 Patient's noncompliance with other medical treatment and regimen

== ENCOUNTER 2018-07-10 21:43 | Emergency (ER) | payer OTHER ==
--- NOTE | 2018-07-10 21:52 | C.PDOC ---
History Of Present Illness 52 year old male is brought to the ED for his Usp for evaluation of a fall. Patient reports he remembers the event. Patient denies LOC, visual changes , numbness, weakness, CP, SOB, nausea, vomit, dizziness. Time Seen by Provider: 07/10/18 21:52 Chief Complaint (Nursing): Medical Clearance History Per: Patient, Other (Usp) History/Exam Limitations: no limitations Onset/Duration Of Symptoms: Hrs Current Symptoms Are (Timing): Still Present Severity: Mild Recent travel outside of the [place]: No Additional History Per: Patient, Usp Past Medical History Reviewed: Historical Data, Nursing Documentation, Vital Signs Vital Signs: Last Vital Signs Temp 99 F 07/10/18 21:53 Pulse 106 H 07/10/18 21:53 Resp 17 07/10/18 21:53 BP 106/66 07/10/18 21:53 Pulse Ox 97 07/10/18 21:53 - Medical History PMH: COPD, Hiatal Hernia, Seizures Denies: HIV, HTN, Chronic Kidney Disease, Sexually Transmitted Disease Surgical History: No Surg Hx - [facility] Procedures EXCISION OF SMALL INTESTINE, ENDO, DIAGN (08/09/16) TETANUS TOXOID ADMINIST (11/20/14) Family History: States: Unknown Family Hx - Social History Hx Tobacco Use: Yes Hx Alcohol Use: Yes Hx Substance Use: No - Immunization History Hx Tetanus Toxoid Vaccination: No Hx Influenza Vaccination: No Hx Pneumococcal Vaccination: No Review Of Systems Constitutional: Negative for: Fever, Chills Eyes: Negative for: Vision Change Cardiovascular: Negative for: Chest Pain, Palpitations Respiratory: Negative for: Shortness of Breath Gastrointestinal: Negative for: Nausea, Vomiting Neurological: Positive for: Headache. Negative for: Weakness, Numbness, Dizziness Physical Exam - Physical Exam Appears: Non-toxic Skin: Warm, Dry Head: Normacephalic, Tenderness (mild occipital) Eye(s): bilateral: Normal Inspection Oral Mucosa: Moist Neck: Supple Chest: Symmetrical Cardiovascular: Rhythm Regular Respiratory: No Rales, No Rhonchi, No Wheezing Gastrointestinal/Abdominal: Soft, No Tenderness, No Guarding, No Rebound Back: No Vertebral Tenderness Extremity: No Tenderness, Capillary Refill (< 2 seconds), No Swelling Extremity: Bilateral: Atraumatic, Normal Color And Temperature, Normal ROM (all extremities), Other (PICC line right arm) Neurological/Psych: Oriented x3, Normal Speech, Other (non focal) ED Course And Treatment Pulse Ox Interpretation: Normal Progress Note: Plan: - Ct head Reevaluation Time: 23:19 Reassessment Condition: Improved Disposition Counseled Patient/Family Regarding: Studies Performed, Diagnosis, Need For Followup - Disposition Referrals: Deepa Sorenson MD [Staff Provider] - Disposition: HOME/ ROUTINE Disposition Time: 21:52 Condition: FAIR Instructions: Contusion (DC) Forms: [employer] (Upper Sorbian) - Clinical Impression Clinical Impression: Fall, Head contusion - Scribe Statement The provider has reviewed the documentation as recorded by the Scribe Isaac Oshea All medical record entries made by the Scribe were at my direction and personally dictated by me. I have reviewed the chart and agree that the record accurately reflects my personal performance of the history, physical exam, medical decision making, and the department course for this patient. I have also personally directed, reviewed, and agree with the discharge instructions and disposition.
[2018-07-10 21:55] VITALS: BMI 28.0
[2018-07-11 03:19] VITALS: BP 116/65; PULSE 110; RESP 20; TEMP 99.5; O2SAT 99
--- NOTE | 2018-07-11 08:32 | CT ---
Date of service: 07/10/2018 PROCEDURE: CT HEAD WITHOUT CONTRAST. HISTORY: fall COMPARISON: CT head dated 07/04/2018 TECHNIQUE: Axial computed tomography images were obtained through the head/brain without intravenous contrast. Radiation dose: Total exam DLP = 1071 mGy-cm. This CT exam was performed using one or more of the following dose reduction techniques: Automated exposure control, adjustment of the mA and/or kV according to patient size, and/or use of iterative reconstruction technique. FINDINGS: HEMORRHAGE: No intracranial hemorrhage. BRAIN: Cerebral and cerebellar atrophy. Scattered focal lucencies in the subcortical and periventricular white matter suggestive for chronic microvascular ischemic change. Bilateral basal ganglia lacunar infarcts. VENTRICLES: Unremarkable. No hydrocephalus. CALVARIUM: Unremarkable. Probable chronic deformity in the right zygomatic arch. PARANASAL SINUSES: Unremarkable as visualized. No significant inflammatory changes. MASTOID AIR CELLS: Unremarkable as visualized. No inflammatory changes. OTHER FINDINGS: Intracranial arterial calcifications. IMPRESSION: Cerebral and cerebellar atrophy. Chronic microvascular ischemic changes. If focal neurologic deficit persists, consider correlation with MRI. These findings were preliminarily reported at 11:16 p.m. on 07/10/[address] Darnell Franco from [facility].
== END 2018-07-11 03:19 | disposition home or self-care (01) ==
LOC: MERGE 21:43 → C.ER 21:43
DX: S00.83XA Contusion of other part of head, initial encounter (principal); W19.XXXA Unspecified fall, initial encounter; Y92.129 Unspecified place in nursing home as the place of occurrence of the external cause

== ENCOUNTER 2019-03-01 08:33 | Inpatient (IN) | payer OTHER ==
[2019-03-01 08:52] VITALS: BMI 25.8
[2019-03-01] MEDS ORDERED: Sodium Chloride 0.9% 1,000 ML IV ONE ×2 (09:03→12:45)
--- NOTE | 2019-03-01 10:34 | CT ---
Date of service: 03/01/2019 PROCEDURE: CT HEAD WITHOUT CONTRAST. HISTORY: AMS COMPARISON: Noncontrast head CT performed 07/10/18 TECHNIQUE: Axial computed tomography images were obtained through the head/brain without intravenous contrast. Radiation dose: Total exam DLP = 1451.43 mGy-cm. This CT exam was performed using one or more of the following dose reduction techniques: Automated exposure control, adjustment of the mA and/or kV according to patient size, and/or use of iterative reconstruction technique. FINDINGS: Examination limited by motion and streak artifact. HEMORRHAGE: No intracranial hemorrhage. BRAIN: Diffuse atrophy with prominence of the ventricles and sulci noted. No mass effect or edema. Intracranial atherosclerosis. Scattered tiny bilateral basal ganglia lacunar type infarcts. Scattered periventricular and subcortical white matter hypodensities, which are nonspecific, but often seen with chronic microvascular ischemic disease. Please note that MRI with diffusion imaging is more sensitive in the detection of acute ischemic event. VENTRICLES: No hydrocephalus. CALVARIUM: Unremarkable. PARANASAL SINUSES: Mucosal thickening of the ethmoid air cells/sphenoid sinuses. MASTOID AIR CELLS: Unremarkable as visualized. No inflammatory changes. OTHER FINDINGS: None. IMPRESSION: Examination limited by streak and motion artifact. Generalized atrophy. Chronic microvascular ischemic changes.
--- NOTE | 2019-03-01 10:39 | RAD ---
Date of service: 03/01/2019 PROCEDURE: CHEST RADIOGRAPH, 1 VIEW HISTORY: AMS COMPARISON: Is FINDINGS: LUNGS: The lungs are well inflated. There is multifocal patchy airspace disease in the right lung and left mid lung, worse in the right lower lobe. PLEURA: No pneumothorax or pleural effusion. CARDIOVASCULAR: The heart is normal in size. No aortic atherosclerotic calcifications present. OSSEOUS STRUCTURES: Within normal limits for the patient's age. VISUALIZED UPPER ABDOMEN: Normal. OTHER FINDINGS: None. IMPRESSION: Findings are most compatible with multifocal pneumonia, worse in the right lower lobe. Follow-up after medical management is recommended to ensure complete resolution.
[2019-03-01 11:04] LABS: BASO # 0.1 K/uL (0.0-0.2); BASO % 0.5 % (0.0-2.0); EOS % 0.1 % (0.0-4.0); LYMPH # 0.7 K/uL (1.0-4.3); LYMPH % 5.6 % (20.0-40.0); MEAN CORPUSCULAR HEMOGLOBIN 32.5 pg (27.0-31.0); MEAN CORPUSCULAR HGB CONC 36.1 g/dL (33.0-37.0); MONO # 0.7 K/uL (0.0-0.8); MONO % 5.6 % (0.0-10.0); NEUT # 11.2 K/uL (1.8-7.0); NEUT % 88.2 % (50.0-75.0); PLATELET COUNT 185 K/uL (130-400); RBC 3.76 Mil/uL (4.40-5.90); RED CELL DISTRIBUTION WIDTH 14.9 % (11.5-14.5)
[2019-03-01 11:05] LABS: HEMOGLOBIN 12.2 g/dL (12.0-18.0); WHITE BLOOD COUNT 12.7 K/uL (4.8-10.8)
[2019-03-01 11:08] LABS: SQUAMOUS EPITHIAL 1 /hpf (0-5); URINE BILIRUBIN NEGATIVE (NEGATIVE); URINE BLOOD 1+ (NEGATIVE); URINE CLARITY Clear (Clear); URINE COLOR Straw (YELLOW); URINE GLUCOSE (UA) NORMAL (Normal); URINE LEUKOCYTE ESTERASE NEG Leu/uL (Negative); URINE PROTEIN 1+ mg/dL (NEGATIVE); URINE UROBILINOGEN NORMAL mg/dL (0.2-1.0)
[2019-03-01 11:10] LABS: VENOUS BLOOD GAS BASE EXCESS -6.3 mmol/L (0.0-2.0); VENOUS BLOOD GAS PCO2 32 mmHg (40-60); VENOUS BLOOD GAS PO2 46 mm/Hg (30-55); VENOUS BLOOD PH 7.36 (7.32-7.43)
[2019-03-01 11:12] LABS: INR 1.1; PROTHROMBIN TIME 11.7 SECONDS (9.7-12.2)
[2019-03-01 11:31] LABS: BARBITURATES, UR NEGATIVE (NEGATIVE); BENZODIAZEPINES, UR NEGATIVE (NEGATIVE); OPIATES, UR NEGATIVE (NEGATIVE); PHENCYCLIDINE, UR NEGATIVE (NEGATIVE)
[2019-03-01 11:36] LABS: BANDS 3 % (0-2); LYMPHOCYTE 9 % (20-40); MONOCYTE 6 % (0-10); NEUTROPHIL 82 % (50-75); PLATELET ESTIMATE NORMAL (NORMAL); TOTAL CELLS COUNTED 100
[2019-03-01 11:37] LABS: BURR CELLS SLIGHT; OVALOCYTES SLIGHT; POIKILOCYTOSIS SLIGHT
[2019-03-01] MEDS ORDERED: Sodium Chloride 0.9% 1,000 ML ONE ×2 (11:41→12:50)
[2019-03-01] MEDS ORDERED: cefTRIAXone IV 1 gm in Dextros 50 ML IV STA (11:42)
[2019-03-01] MEDS ORDERED: Azithromycin 500mg/250ML NS 500 MG/250 ML BAG IV STA (11:42)
[2019-03-01 11:56] LABS: ALB/GLOB RATIO 1.4 (1.0-2.1); ALBUMIN 3.6 g/dL (3.5-5.0); ALT/SGPT 34 U/L (21-72); AST/SGOT 108 U/L (17-59); BLOOD UREA NITROGEN 9 mg/dL (9-20); CALCIUM 8.5 mg/dl (8.6-10.4); GFR NON-AFRICAN AMERICAN > 60; LIPASE 47 U/L (23-300)
[2019-03-01] MEDS ORDERED: Azithromycin 500mg/250ML NS 500 MG/250 ML BAG IVPB ONE (12:14)
--- NOTE | 2019-03-01 13:03 | C.PDOC ---
History Of Present Illness 53 y/o male,w/PMhx of HTN, ETOH abuse, seizures, cardiac arrest (2017)brought to ER by ALS for altered mental status. As per EMS, patient was found with change in mental status by his home health aide in the morning. Patient is awake and alert. However, HPI is limited because patient is non-verbal at this time. Chief Complaint (Nursing): Altered Mental Status History Per: EMS History/Exam Limitations: Other (pt is non-verbal at this time) Onset/Duration Of Symptoms: Days Current Symptoms Are (Timing): Still Present Severity: Moderate Past Medical History Reviewed: Historical Data, Nursing Documentation, Vital Signs Vital Signs: Last Vital Signs Temp 98.7 F 03/01/19 08:35 Pulse 102 H 03/01/19 12:09 Resp 18 03/01/19 12:09 BP 134/86 03/01/19 12:09 Pulse Ox 100 03/01/19 12:09 Primary Care Provider: Non [facility] Provider, - Medical History PMH: COPD, Depression, Hiatal Hernia, HTN, Seizures Denies: Diabetes, Hepatitis, HIV, Chronic Kidney Disease, Sexually Transmitted Disease Other Surgeries: Hx of surgeries - [facility] Procedures ASSISTANCE WITH RESPIRATORY VENTILATION, 24-96 HRS, CPAP (06/11/18) CONTROL BLEEDING IN GASTROINTESTINAL TRACT, ENDO (06/11/18) DESTRUCTION OF STOMACH, ENDO (06/11/18) EXCISION OF SMALL INTESTINE, ENDO, DIAGN (08/09/16) INSERT INFUSION DEV IN L INT JUGULAR VEIN, PERC (06/11/18) INSERTION OF ENDOTRACHEAL AIRWAY INTO TRACHEA, ENDO (06/11/18) INTRODUCTION OF NUTRITIONAL INTO PERIPH VEIN, PERC APPROACH (06/11/18) INTRODUCTION OF NUTRITIONAL INTO UP GI, VIA OPENING (06/11/18) RESPIRATORY VENTILATION, 24-96 CONSECUTIVE HOURS (06/11/18) TETANUS TOXOID ADMINIST (11/20/14) TRANSFUSE NONAUT RED BLOOD CELLS IN PERIPH VEIN, PERC (07/16/18) Family History: States: No Known Family Hx - Social History Hx Tobacco Use: Yes Hx Alcohol Use: No Hx Substance Use: No - Immunization History Hx Tetanus Toxoid Vaccination: No Hx Influenza Vaccination: No Hx Pneumococcal Vaccination: No Review Of Systems Review Of Systems: ROS cannot be obtained secondary to pt's inabilty to answer questions. Physical Exam - Physical Exam Appears: Other (awake,alert,non-verbal) Skin: Normal Color, Warm, Dry Head: Atraumatic, Normacephalic Eye(s): bilateral: PERRL, EOMI Nose: Normal Oral Mucosa: Moist Neck: Supple Chest: Symmetrical Cardiovascular: Rhythm Regular Respiratory: Rales (faint rales in bilateral bases), No Rhonchi, No Wheezing Gastrointestinal/Abdominal: Bowel Sounds (hyperactive bowel sounds), Soft, No Tenderness, Distention, No Guarding, No Rebound Neurological/Psych: Other (awake,alert,non-verbal) ED Course And Treatment - Laboratory Results Result Diagrams: 03/08/19 06:35 03/08/19 06:35 Lab Results: pO2 46 mm/Hg (30-55) 03/01/19 11:06 VBG pH 7.36 (7.32-7.43) 03/01/19 11:06 VBG pCO2 32 mmHg (40-60) L 03/01/19 11:06 VBG HCO3 19.5 mmol/L 03/01/19 11:06 VBG Total CO2 19.1 mmol/L (22-28) L 03/01/19 11:06 VBG O2 Sat (Calc) 85.4 % (40-65) H 03/01/19 11:06 VBG Base Excess -6.3 mmol/L (0.0-2.0) L 03/01/19 11:06 VBG Potassium 3.5 mmol/L (3.6-5.2) L 03/01/19 11:06 Sodium 110.0 mmol/l (132-148) L* 03/01/19 11:06 Chloride 80.0 mmol/L (98-107) L 03/01/19 11:06 Glucose 62 mg/dl (75-110) L 03/01/19 11:06 Lactate 1.2 mmol/L (0.7-2.1) 03/01/19 11:06 Crit Value Called To yang Rogers 03/01/19 11:06 Crit Value Called By shawnee Gibbons 03/01/19 11:06 Crit Value Read Back Y 03/01/19 11:06 Blood Gas Notified Time 1109 03/01/19 11:06 PT 11.7 SECONDS (9.7-12.2) 03/01/19 10:58 INR 1.1 03/01/19 10:58 APTT 30.0 SECONDS (21-34) 03/01/19 10:58 Troponin I < 0.0120 ng/mL (0.00-0.120) 03/01/19 10:58 Total Bilirubin 1.8 mg/dL (0.2-1.3) H 03/01/19 10:58 AST 108 U/L (17-59) H D 03/01/19 10:58 ALT 34 U/L (21-72) 03/01/19 10:58 Alkaline Phosphatase 118 U/L (38-126) 03/01/19 10:58 Total Protein 6.2 g/dL (6.3-8.3) L 03/01/19 10:58 Albumin 3.6 g/dL (3.5-5.0) 03/01/19 10:58 Globulin 2.6 gm/dL (2.2-3.9) 03/01/19 10:58 Albumin/Globulin Ratio 1.4 (1.0-2.1) 03/01/19 10:58 Lipase 47 U/L (23-300) 03/01/19 10:58 Urine Color Straw (YELLOW) 03/01/19 10:58 Urine Clarity Clear (Clear) 03/01/19 10:58 Urine pH 7.0 (5.0-8.0) 03/01/19 10:58 Ur Specific Bear 1.004 (1.003-1.030) 03/01/19 10:58 Urine Protein 1+ mg/dL (NEGATIVE) H 03/01/19 10:58 Urine Glucose (UA) Normal mg/dL (Normal) 03/01/19 10:58 Urine Ketones 1+ mg/dL (NEGATIVE) H 03/01/19 10:58 Urine Blood 1+ (NEGATIVE) H 03/01/19 10:58 Urine Nitrate Negative (NEGATIVE) 03/01/19 10:58 Urine Bilirubin Negative (NEGATIVE) 03/01/19 10:58 Urine Urobilinogen Normal mg/dL (0.2-1.0) 03/01/19 10:58 Ur Leukocyte Esterase Neg Cherelle/uL (Negative) 03/01/19 10:58 Urine RBC (Auto) < 1 /hpf (0-3) 03/01/19 10:58 Ur Squamous Epith Cells 1 /hpf (0-5) 03/01/19 10:58 ECG: Interpreted By Me, Viewed By Me Interpretation Of ECG: NSR with normal intervals, normal axises, and no ST elevations Rate From EC O2 Sat by Pulse Oximetry: 100 (RA) Pulse Ox Interpretation: Normal - Other Rad CXR X-Ray: Viewed By Me, Read By Radiologist Interpretation: Date of service: 03/01/2019. PROCEDURE: CHEST RADIOGRAPH, 1 VIEW. HISTORY: AMS. COMPARISON: Is. FINDINGS: LUNGS: The lungs are well inflated. There is multifocal patchy airspace disease in the right lung and left mid lung, worse in the right lower lobe. PLEURA: No pneumothorax or pleural effusion. CARDIOVASCULAR: The heart is normal in size. No aortic atherosclerotic calcifications present. OSSEOUS STRUCTURES: Within normal limits for the patient's age. VISUALIZED UPPER ABDOMEN: Normal. OTHER FINDINGS: None. IMPRESSION: Findings are most compatible with multifocal pneumonia, worse in the right lower lobe. Follow-up after medical management is recommended to ensure complete resolution. - CT Scan/US CT-Head Other Rad Studies (CT/US): Read By Radiologist, Radiology Report Reviewed CT/US Interpretation: Date of service: 03/01/2019. PROCEDURE: CT HEAD WITHOUT CONTRAST. HISTORY: AMS. COMPARISON: Noncontrast head CT performed 07/10/18. TECHNIQUE: Axial computed tomography images were obtained through the head/brain without intravenous contrast. Radiation dose: Total exam DLP = 1451.43 mGy-cm. This CT exam was performed using one or more of the following dose reduction techniques: Automated exposure control, adjustment of the mA and/or kV according to patient size, and/or use of iterative reconstruction technique. FINDINGS: Examination limited by motion and streak artifact. HEMORRHAGE: No intracranial hemorrhage. BRAIN: Diffuse atrophy with prominence of the ventricles and sulci noted. No mass effect or edema. Intracranial atherosclerosis. Scattered tiny bilateral basal ganglia lacunar type infarcts. Scattered periventricular and subcortical white matter hypodensities, which are nonspecific, but often seen with chronic microvascular ischemic disease. Please note that MRI with diffusion imaging is more sensitive in the detection of acute ischemic event. VENTRICLES: No hydrocephalus. CALVARIUM: Unremarkable. PARANASAL SINUSES: Mucosal thickening of the ethmoid air cells/sphenoid sinuses. MASTOID AIR CELLS: Unremarkable as visualized. No inflammatory changes. OTHER FINDINGS: None. IMPRESSION: Examination limited by streak and motion artifact. Generalized atrophy. Chronic microvascular ischemic changes. Medical Decision Making Medical Decision Making: Plan: --Labs --UA --CXR --CT-Head --Urine Culture --Blood Culture --IV Fluids --Ativan IV --Zithromax IV --Rocephin IV Updates: 12:35 pm Case d/w Dr. Sorenson who accepts patient to his [facility]. Will consult ICU. Case discussed with . evaluated patient and accept the patient to the ICU. states he will place central line on patient in ICU. Disposition - Disposition Disposition: HOSPITALIZED Disposition Time: 12:35 Condition: SERIOUS - POA Present On Arrival: None - Clinical Impression Clinical Impression: Altered mental status, Hyponatremia, Pneumonia - Scribe Statement The provider has reviewed the documentation as recorded by the Monique Bolden Provider Attestation: All medical record entries made by the Monique were at my direction and personally dictated by me. I have reviewed the chart and agree that the record accurately reflects my personal performance of the history, physical exam, medical decision making, and the department course for this patient. I have also personally directed, reviewed, and agree with the discharge instructions and disposition.
--- NOTE | 2019-03-01 13:18 | CP.PCM.CON ---
<Rocky Mena - Last Filed: 03/01/19 16:35> History of Present Illness - History of Present Illness History of Present Illness: PGY-1 Critical Care Progress Note for Dr. Morfin Patient is a 53 year old male with history of alcohol abuse, seizure disorder, cardiac arrest (2017), PUD s/p partial gastrectomy, HTN, COPD, hiatal hernia, brought in by ALS for altered mental status with unknown onset of time. Patient was found by home health aid this morning, nonverbal and restless, constantly moving all extremities. Per ED note, patient was found with dried feces on his distal lower extremities and smell of pungent urine. Na 107, BG on arrival 92. 12 pt ROS unattainable due to mental status. PMHx: alcohol abuse, seizure disorder, cardiac arrest (2017), PUD s/p partial gastrectomy, HTN, COPD, hiatal hernia PSHx: partial gastrectomy, hx of L arm and leg fracture s/p plate and prema placement respectively Allergies: NKDA Home Medications: reviewed Family Hx: noncontributory Social Hx: alcohol abuse, 10 cigarettes daily x 20 years, no illicit drug use Review of Systems - Review of Systems Systems not reviewed;Unavailable: Altered Mental Status Past Patient History - Infectious Disease Hx of Infectious Diseases: MRSA - Past Medical History & Family History Past Medical History?: Yes - Past Social History Smoking Status: Never Smoked - CARDIAC Hx Hypertension: Yes - PULMONARY Hx Chronic Obstructive Pulmonary Disease (COPD): Yes - NEUROLOGICAL Hx Seizures: Yes - HEENT Hx HEENT Problems: Yes Other/Comment: hearing loss - RENAL Hx Chronic Kidney Disease: No - ENDOCRINE/METABOLIC Hx Endocrine Disorders: No - HEMATOLOGICAL/ONCOLOGICAL Hx Human Immunodeficiency Virus (HIV): No - INTEGUMENTARY Hx Dermatological Problems: No - MUSCULOSKELETAL/RHEUMATOLOGICAL Hx Back Pain: Yes Hx Falls: Yes Other/Comment: scoliosis,, RIGHT WRIST CLOSED FRACTURE - GASTROINTESTINAL Other/Comment: GI BLEEDING - GENITOURINARY/GYNECOLOGICAL Hx Sexually Transmitted Disorders: No - PSYCHIATRIC Hx Depression: Yes Hx Substance Use: No - SURGICAL HISTORY Other/Comment: Endoscopy 08/11/16. - ANESTHESIA Hx Anesthesia: Yes Hx Anesthesia Reactions: No Meds Allergies/Adverse Reactions: Allergies Allergy/AdvReac Type Severity Reaction Status Date / Time No Known Allergies Allergy Verified 07/14/18 13:15 - Medications Medications: Current Medications Sodium Chloride (Sodium Chloride 0.9%) 1,000 mls @ 100 mls/hr IV .Q10H ONE Stop: 03/01/19 19:02 Last Admin: 03/01/19 11:30 Dose: 100 mls/hr Sodium Chloride (Sodium Chloride 0.9%) 1,000 mls @ 1,000 mls/hr IV .Q1H ONE Stop: 03/01/19 13:44 Last Admin: 03/01/19 12:50 Dose: 1,000 mls/hr Physical Exam - Constitutional Appears: Confused - Head Exam Head Exam: ATRAUMATIC, NORMAL INSPECTION, NORMOCEPHALIC - Eye Exam Eye Exam: EOMI, Normal appearance, PERRL Pupil Exam: NORMAL ACCOMODATION - ENT Exam ENT Exam: Mucous Membranes Moist, Normal Exam - Neck Exam Neck exam: Positive for: Full Rom, Normal Inspection - Respiratory Exam Respiratory Exam: Rales, NORMAL BREATHING PATTERN. absent: Accessory Muscle Use, Rhonchi, Wheezes, Respiratory Distress - Cardiovascular Exam Cardiovascular Exam: REGULAR RHYTHM, +S1, +S2 - GI/Abdominal Exam GI & Abdominal Exam: Hyperactive Bowel Sounds, Soft. absent: Distended, Firm, Guarding, Rebound, Rigid, Tenderness - Extremities Exam Extremities exam: Positive for: normal capillary refill, normal inspection, pedal pulses present. Negative for: calf tenderness, pedal edema - Back Exam Back exam: NORMAL INSPECTION - Neurological Exam Neurological exam: Alert Additional comments: awake, alert, nonverbal - Skin Skin Exam: Dry, Intact, Normal Color, Warm Results - Vital Signs Recent Vital Signs: Last Vital Signs Temp 98.7 F 03/01/19 08:35 Pulse 102 H 03/01/19 12:09 Resp 18 03/01/19 12:09 BP 134/86 03/01/19 12:09 Pulse Ox 100 03/01/19 13:10 - Labs Result Diagrams: 03/01/19 10:58 03/01/19 10:58 Labs: Laboratory Results - last 24 hr 03/01/19 03/01/19 03/01/19 08:51 10:58 10:58 WBC 12.7 H D RBC 3.76 L Hgb 12.2 D Hct 33.8 L MCV 90.0 D MCH 32.5 H MCHC 36.1 RDW 14.9 H Plt Count 185 MPV 7.0 L Neut % (Auto) 88.2 H Lymph % (Auto) 5.6 L [place] % (Auto) 5.6 Eos % (Auto) 0.1 Baso % (Auto) 0.5 Neut # (Auto) 11.2 H Lymph # (Auto) 0.7 L [place] # (Auto) 0.7 Eos # (Auto) 0.0 Baso # (Auto) 0.1 Neutrophils % (Manual) 82 H Band Neutrophils % 3 H Lymphocytes % (Manual) 9 L Monocytes % (Manual) 6 Platelet Estimate Normal Poikilocytosis (manual Slight Ovalocytes Slight Tra Cells Slight PT 11.7 INR 1.1 APTT 30.0 pO2 VBG pH VBG pCO2 VBG HCO3 VBG Total CO2 VBG O2 Sat (Calc) VBG Base Excess VBG Potassium Glucose Lactate Crit Value Called To Crit Value Called By Crit Value Read Back Blood Gas Notified Time Sodium Potassium Chloride Carbon Dioxide Anion Gap BUN Creatinine Est GFR ( Amer) Est GFR (Non-Af Amer) POC Glucose (mg/dL) 92 Random Glucose Calcium Total Bilirubin AST ALT Alkaline Phosphatase Troponin I Total Protein Albumin Globulin Albumin/Globulin Ratio Lipase Venous Blood Potassium Urine Color Urine Clarity Urine pH Ur Specific [place] Urine Protein Urine Glucose (UA) Urine Ketones Urine Blood Urine Nitrate Urine Bilirubin Urine Urobilinogen Ur Leukocyte Esterase Urine RBC (Auto) Ur Squamous Epith Cells Urine Opiates Screen Urine Methadone Screen Ur Barbiturates Screen Ur Phencyclidine Scrn Ur Amphetamines Screen U Benzodiazepines Scrn U Oth Cocaine Metabols U Cannabinoids Screen 03/01/19 03/01/19 03/01/19 10:58 10:58 10:58 WBC RBC Hgb Hct MCV MCH MCHC RDW Plt Count MPV Neut % (Auto) Lymph % (Auto) [place] % (Auto) Eos % (Auto) Baso % (Auto) Neut # (Auto) Lymph # (Auto) [place] # (Auto) Eos # (Auto) Baso # (Auto) Neutrophils % (Manual) Band Neutrophils % Lymphocytes % (Manual) Monocytes % (Manual) Platelet Estimate Poikilocytosis (manual Ovalocytes Tra Cells PT INR APTT pO2 VBG pH VBG pCO2 VBG HCO3 VBG Total CO2 VBG O2 Sat (Calc) VBG Base Excess VBG Potassium Glucose Lactate Crit Value Called To Crit Value Called By Crit Value Read Back Blood Gas Notified Time Sodium 107 L* Potassium 4.2 Chloride 73 L D Carbon Dioxide 19 L Anion Gap 20 BUN 9 Creatinine 0.5 L Est GFR ( Amer) > 60 Est GFR (Non-Af Amer) > 60 POC Glucose (mg/dL) Random Glucose 74 L D Calcium 8.5 L Total Bilirubin 1.8 H AST 108 H D ALT 34 Alkaline Phosphatase 118 Troponin I < 0.0120 Total Protein 6.2 L Albumin 3.6 Globulin 2.6 Albumin/Globulin Ratio 1.4 Lipase 47 Venous Blood Potassium Urine Color Straw Urine Clarity Clear Urine pH 7.0 Ur Specific [place] 1.004 Urine Protein 1+ H Urine Glucose (UA) Normal Urine Ketones 1+ H Urine Blood 1+ H Urine Nitrate Negative Urine Bilirubin Negative Urine Urobilinogen Normal Ur Leukocyte Esterase Neg Urine RBC (Auto) < 1 Ur Squamous Epith Cells 1 Urine Opiates Screen Negative Urine Methadone Screen Negative Ur Barbiturates Screen Negative Ur Phencyclidine Scrn Negative Ur Amphetamines Screen Negative U Benzodiazepines Scrn Negative U Oth Cocaine Metabols Negative U Cannabinoids Screen Negative 03/01/19 11:06 WBC RBC Hgb Hct MCV MCH MCHC RDW Plt Count MPV Neut % (Auto) Lymph % (Auto) [place] % (Auto) Eos % (Auto) Baso % (Auto) Neut # (Auto) Lymph # (Auto) [place] # (Auto) Eos # (Auto) Baso # (Auto) Neutrophils % (Manual) Band Neutrophils % Lymphocytes % (Manual) Monocytes % (Manual) Platelet Estimate Poikilocytosis (manual Ovalocytes Tra Cells PT INR APTT pO2 46 VBG pH 7.36 VBG pCO2 32 L VBG HCO3 19.5 VBG Total CO2 19.1 L VBG O2 Sat (Calc) 85.4 H VBG Base Excess -6.3 L VBG Potassium 3.5 L Glucose 62 L Lactate 1.2 Crit Value Called To yang Rogers Crit Value Called By shawnee Gibbons Crit Value Read Back Y Blood Gas Notified Time 1109 Sodium 110.0 L* Potassium Chloride 80.0 L Carbon Dioxide Anion Gap BUN Creatinine Est GFR ( Amer) Est GFR (Non-Af Amer) POC Glucose (mg/dL) Random Glucose Calcium Total Bilirubin AST ALT Alkaline Phosphatase Troponin I Total Protein Albumin Globulin Albumin/Globulin Ratio Lipase Venous Blood Potassium 3.5 L Urine Color Urine Clarity Urine pH Ur Specific [place] Urine Protein Urine Glucose (UA) Urine Ketones Urine Blood Urine Nitrate Urine Bilirubin Urine Urobilinogen Ur Leukocyte Esterase Urine RBC (Auto) Ur Squamous Epith Cells Urine Opiates Screen Urine Methadone Screen Ur Barbiturates Screen Ur Phencyclidine Scrn Ur Amphetamines Screen U Benzodiazepines Scrn U Oth Cocaine Metabols U Cannabinoids Screen Assessment & Plan - Assessment and Plan (Free Text) Assessment: 53 yo male with pmhx of alcohol abuse, seizure disorder, cardiac arrest (2017), HTN, COPD brought in by ALS for AMS, unknown onset of time. Na 107 on admission. Plan: Neuro -on mechanical vent FIO2 100, PEEP 5 -sedated, on propofol gtt -seizure disorder -resume home keppra 500 mg q12 IVPB -hx of alcohol abuse -ativan 1 mg q4 prn Pulm -multifocal pneumonia on CXR, worse in RLL -f/u blood, sputum cultures -vanc/zosyn for empiric coverage CV -rate controlled -home cardizem held Heme -no acute issues Endo -no acute issues GI -protonix 40 mg IVP q12 Renal -hyponatremic, Na 107 -Nephrology (Dr. Shafer) on case -f/u urine, serum lytes ID -leukocytosis, bandemia -f/u sputum, blood cultures -vanc/zosyn PPx, Diet, Disposition -DVT: scds, heparin -GI: protonix 40 mg IVP q12 -Diet: NPO -swallow eval Case discussed with Dr. Navjot Mena DO, PGY-1 <Sandeep Morfin - Last Filed: 03/01/19 17:08> Meds - Medications Medications: Current Medications Heparin Sodium (Porcine) (Heparin) 5,000 units SC Q8 MAYANK Sodium Chloride (Sodium Chloride 0.9%) 1,000 mls @ 100 mls/hr IV .Q10H ONE Stop: 03/01/19 19:02 Last Admin: 03/01/19 11:30 Dose: 100 mls/hr Piperacillin Sod/Tazobactam Sod (Zosyn 3.375 Gm Iv Premix) 3.375 gm in 50 mls @ 100 mls/hr IVPB Q6H MAYANK; Protocol Last Admin: 05/08/19 16:23 Dose: 100 mls/hr Vancomycin HCl 1 gm/ Sodium (Chloride) 250 mls @ 166.7 mls/hr IVPB Q24H MAYANK; Protocol Propofol (Diprivan) 1,000 mg in 100 mls @ 2.313 mls/hr IV .Q24H PRN; Protocol PRN Reason: TITRATE PER MD ORDER Last Titration: 03/01/19 15:15 Dose: 60 mcg/kg/min, 27.76 mls/hr Levetiracetam 500 mg/ Dextrose 105 mls @ 420 mls/hr IVPB Q12H MAYANK Last Admin: 03/01/19 16:08 Dose: 420 mls/hr Dextrose/Sodium Chloride (Dextrose 5%/0.9% Ns 1000 Ml) 1,000 mls @ 100 mls/hr IV .Q10H MAYANK Last Admin: 03/01/19 15:48 Dose: 100 mls/hr Lorazepam (Ativan) 1 mg IVP Q6H PRN PRN Reason: Anxiety Pantoprazole Sodium (Protonix Inj) 40 mg IVP Q12 MAYANK Results - Vital Signs Recent Vital Signs: Last Vital Signs Temp 98.7 F 03/01/19 08:35 Pulse 97 H 03/01/19 15:31 Resp 18 03/01/19 13:21 BP 142/70 03/01/19 13:21 Pulse Ox 97 03/01/19 15:31 - Labs Result Diagrams: 03/01/19 10:58 03/01/19 10:58 Labs: Laboratory Results - last 24 hr 03/01/19 03/01/19 03/01/19 08:51 10:58 10:58 WBC 12.7 H D RBC 3.76 L Hgb 12.2 D Hct 33.8 L MCV 90.0 D MCH 32.5 H MCHC 36.1 RDW 14.9 H Plt Count 185 MPV 7.0 L Neut % (Auto) 88.2 H Lymph % (Auto) 5.6 L [place] % (Auto) 5.6 Eos % (Auto) 0.1 Baso % (Auto) 0.5 Neut # (Auto) 11.2 H Lymph # (Auto) 0.7 L [place] # (Auto) 0.7 Eos # (Auto) 0.0 Baso # (Auto) 0.1 Neutrophils % (Manual) 82 H Band Neutrophils % 3 H Lymphocytes % (Manual) 9 L Monocytes % (Manual) 6 Platelet Estimate Normal Poikilocytosis (manual Slight Ovalocytes Slight Tra Cells Slight PT 11.7 INR 1.1 APTT 30.0 pO2 VBG pH VBG pCO2 VBG HCO3 VBG Total CO2 VBG O2 Sat (Calc) VBG Base Excess VBG Potassium Glucose Lactate Crit Value Called To Crit Value Called By Crit Value Read Back Blood Gas Notified Time Sodium Potassium Chloride Carbon Dioxide Anion Gap BUN Creatinine Est GFR ( Amer) Est GFR (Non-Af Amer) POC Glucose (mg/dL) 92 Random Glucose Serum Osmolality Calcium Total Bilirubin AST ALT Alkaline Phosphatase Troponin I Total Protein Albumin Globulin Albumin/Globulin Ratio Lipase Venous Blood Potassium Urine Color Urine Clarity Urine pH Ur Specific [place] Urine Protein Urine Glucose (UA) Urine Ketones Urine Blood Urine Nitrate Urine Bilirubin Urine Urobilinogen Ur Leukocyte Esterase Urine RBC (Auto) Ur Squamous Epith Cells Urine Osmolality Urine Opiates Screen Urine Methadone Screen Ur Barbiturates Screen Ur Phencyclidine Scrn Ur Amphetamines Screen U Benzodiazepines Scrn U Oth Cocaine Metabols U Cannabinoids Screen 03/01/19 03/01/19 03/01/19 10:58 10:58 10:58 WBC RBC Hgb Hct MCV MCH MCHC RDW Plt Count MPV Neut % (Auto) Lymph % (Auto) [place] % (Auto) Eos % (Auto) Baso % (Auto) Neut # (Auto) Lymph # (Auto) [place] # (Auto) Eos # (Auto) Baso # (Auto) Neutrophils % (Manual) Band Neutrophils % Lymphocytes % (Manual) Monocytes % (Manual) Platelet Estimate Poikilocytosis (manual Ovalocytes [place] Cells PT INR APTT pO2 VBG pH VBG pCO2 VBG HCO3 VBG Total CO2 VBG O2 Sat (Calc) VBG Base Excess VBG Potassium Glucose Lactate Crit Value Called To Crit Value Called By Crit Value Read Back Blood Gas Notified Time Sodium 107 L* Potassium 4.2 Chloride 73 L D Carbon Dioxide 19 L Anion Gap 20 BUN 9 Creatinine 0.5 L Est GFR ( Amer) > 60 Est GFR (Non-Af Amer) > 60 POC Glucose (mg/dL) Random Glucose 74 L D Serum Osmolality Calcium 8.5 L Total Bilirubin 1.8 H AST 108 H D ALT 34 Alkaline Phosphatase 118 Troponin I < 0.0120 Total Protein 6.2 L Albumin 3.6 Globulin 2.6 Albumin/Globulin Ratio 1.4 Lipase 47 Venous Blood Potassium Urine Color Straw Urine Clarity Clear Urine pH 7.0 Ur Specific [place] 1.004 Urine Protein 1+ H Urine Glucose (UA) Normal Urine Ketones 1+ H Urine Blood 1+ H Urine Nitrate Negative Urine Bilirubin Negative Urine Urobilinogen Normal Ur Leukocyte Esterase Neg Urine RBC (Auto) < 1 Ur Squamous Epith Cells 1 Urine Osmolality Urine Opiates Screen Negative Urine Methadone Screen Negative Ur Barbiturates Screen Negative Ur Phencyclidine Scrn Negative Ur Amphetamines Screen Negative U Benzodiazepines Scrn Negative U Oth Cocaine Metabols Negative U Cannabinoids Screen Negative 03/01/19 03/01/19 03/01/19 11:06 16:20 16:27 WBC RBC Hgb Hct MCV MCH MCHC RDW Plt Count MPV Neut % (Auto) Lymph % (Auto) [place] % (Auto) Eos % (Auto) Baso % (Auto) Neut # (Auto) Lymph # (Auto) [place] # (Auto) Eos # (Auto) Baso # (Auto) Neutrophils % (Manual) Band Neutrophils % Lymphocytes % (Manual) Monocytes % (Manual) Platelet Estimate Poikilocytosis (manual Ovalocytes Tra Cells PT INR APTT pO2 46 VBG pH 7.36 VBG pCO2 32 L VBG HCO3 19.5 VBG Total CO2 19.1 L VBG O2 Sat (Calc) 85.4 H VBG Base Excess -6.3 L VBG Potassium 3.5 L Glucose 62 L Lactate 1.2 Crit Value Called To yang Rogers Crit Value Called By shawnee Gibbons Crit Value Read Back Y Blood Gas Notified Time 1109 Sodium 110.0 L* Potassium Chloride 80.0 L Carbon Dioxide Anion Gap BUN Creatinine Est GFR ( Amer) Est GFR (Non-Af Amer) POC Glucose (mg/dL) Random Glucose Serum Osmolality 224 L Calcium Total Bilirubin AST ALT Alkaline Phosphatase Troponin I Total Protein Albumin Globulin Albumin/Globulin Ratio Lipase Venous Blood Potassium 3.5 L Urine Color Urine Clarity Urine pH Ur Specific [place] Urine Protein Urine Glucose (UA) Urine Ketones Urine Blood Urine Nitrate Urine Bilirubin Urine Urobilinogen Ur Leukocyte Esterase Urine RBC (Auto) Ur Squamous Epith Cells Urine Osmolality 127 L Urine Opiates Screen Urine Methadone Screen Ur Barbiturates Screen Ur Phencyclidine Scrn Ur Amphetamines Screen U Benzodiazepines Scrn U Oth Cocaine Metabols U Cannabinoids Screen Attending/Attestation - Attestation I have personally seen and examined this patient.: Yes I have fully participated in the care of the patient.: Yes I have reviewed all pertinent clinical information: Yes Notes (Text): 03/01/19 17:06 Patient seen and examined 53-year-old male with extensive past medical history presented with change in mental status and found to have hyponatremia and pneumonia. Patient intubated in the ICU for worsening shortness of breath and copious secretions Follow-up sodium and start 3% sodium chloride Tracheal aspirate for culture and sensitivity IV antibiotics NG tube feeding IV sedation DVT and stress ulcer prophylaxis
[2019-03-01] MEDS ORDERED: Succinylcholine Chloride 20 mg/ml Syr (5 ml) IV ONE (14:54)
[2019-03-01] MEDS ORDERED: Etomidate 20 mg/10ml Inj IV ONE (14:55)
[2019-03-01] MEDS ORDERED: Propofol 10 mg/ml 1,000 MG/100 ML VIAL IV PRN (14:55)
[2019-03-01] MEDS ORDERED: Dextrose 5%/0.9% NS 1,000 ML IV SCH (15:45)
--- NOTE | 2019-03-01 16:12 | RAD ---
Date of service: 03/01/2019 HISTORY: central line COMPARISON: 03/01/2019 at 9:49 a.m. TECHNIQUE: 1 view obtained. FINDINGS: LUNGS: Right infrahilar opacity, new since earlier examination. Possible pneumonia versus subsegmental atelectasis. There is linear subsegmental atelectasis at the left lung base, new since earlier examination. PLEURA: No significant pleural effusion identified, no pneumothorax apparent. CARDIOVASCULAR: No aortic atherosclerotic calcification present. Normal cardiac size. ET tube appropriately positioned with its tipl 2.6 cm above tracheal lila. A nasogastric tube extends to the left upper quadrant of the abdomen. A right IJ central venous catheter is noted. OSSEOUS STRUCTURES: No significant abnormalities. VISUALIZED UPPER ABDOMEN: Normal. OTHER FINDINGS: None. IMPRESSION: Right infrahilar opacity common nonspecific. Left basilar linear atelectasis. ET tube and NG tube are appropriately positioned.
[2019-03-01] MEDS: Piperacill/Tazo 3.375gm in Dex 3.375 GM/50 ML BAG IVPB SCH ×2 (16:23→22:00)
[2019-03-01 17:03] LABS: OSMOLALITY,URINE 127 mosm/kg (300-1000)
[2019-03-01 17:10] LABS: BLOOD UREA NITROGEN 8 mg/dL (9-20); CALCIUM 7.5 mg/dl (8.6-10.4); GFR NON-AFRICAN AMERICAN > 60
[2019-03-01] MEDS ORDERED: Sodium Chloride 3% 500 ML IV SCH (17:15)
--- NOTE | 2019-03-01 17:18 | PCM.PROC ---
Procedures Attestation:: I certify that I have explained the specified Operation(s) or Procedure(s), risks, benefits and reasonable alternatives to the Patient and/or other person responsible. The opportunity was given to ask questions and all questions answered - Central Line Placement Right Internal Jugular Triple Lumen Catheter Aseptic technique was employed throughout the procedure: Hand Hygiene done prior to procedure, Full sterile barriers (mask, hair cover, sterile gown, sterile gloves), Chloraprep Antiseptic: 30 second prep for IJ or SC sites CVP Time Out Performed: Yes Pt. Placed on Pulse Ox Monitor: Yes Central Line Prep: Chlorhexidine-Alcohol Combination Local Anesthesia Used: Lidocaine 1% Amount of Anesthesia Used (mls): 3 Ultrasound Used for Placement: Yes Central Line Lumen Inserted: triple Central Line Length: 16 cm Post Procedure: Sutured in Place, Good Blood Return, All Ports Aspirated, Flushed, Capped, Sterile Dressing Applied Secured by: Suture Post procedure dressing: Chlorhexidine disc (Biopatch) Post Procedure X-Ray: Yes Patient Tolerated Procedure: Well
--- NOTE | 2019-03-01 17:19 | PCM.PROC ---
Procedures Attestation:: I certify that I have explained the specified Operation(s) or Procedure(s), risks, benefits and reasonable alternatives to the Patient and/or other person responsible. The opportunity was given to ask questions and all questions answered - Intubation Time Out Performed: Yes Sedative: Etomidate, Other Mg Given: 20 Paralytic: Succinylholine Mg Given: 50 Laryngoscope: Rafael ET Tube Size: 8.0 ET Tube Uncuffed: Yes ET Tube Secured [place]: Teeth ET Tube Placement Confirmation: Visualized Passing Through Cords, Breath Sounds Equal Bilaterally, No Breath Sounds Over Epigastrum, Confirmation w/Capnometry Patient Tolerated Procedure: Well Procedure Immediate Complications: None
[2019-03-01] MEDS ORDERED: Dextrose 50% SYRINGE Inj (50 ml) IV STA (17:20)
[2019-03-01 17:21] LABS: ARTERIAL BLOOD GAS HCO3 20.9 mmol/L (21-28); ARTERIAL BLOOD GAS O2 SAT 99.3 % (95-98); ARTERIAL BLOOD GAS PCO2 32 mm/Hg (35-45); ARTERIAL BLOOD GAS PH 7.38 (7.35-7.45); ARTERIAL BLOOD GAS PO2 355 mm/Hg (80-100); ARTERIAL BLOOD GAS TCO2 19.9 mmol/L (22-28)
[2019-03-01] MEDS ORDERED: Dextrose 50% SYRINGE Inj (50 ml) ONE (17:26)
[2019-03-01] MEDS: Propofol 10 mg/ml 1,000 MG/100 ML VIAL IV PRN (18:24)
[2019-03-01 22:22] LABS: BLOOD UREA NITROGEN 6 mg/dL (9-20); CALCIUM 7.9 mg/dl (8.6-10.4); GFR NON-AFRICAN AMERICAN > 60
[2019-03-02] MEDS: Propofol 10 mg/ml 1,000 MG/100 ML VIAL IV PRN ×3 (01:00→17:23)
[2019-03-02 03:07] LABS: BLOOD UREA NITROGEN 6 mg/dL (9-20); CALCIUM 7.9 mg/dl (8.6-10.4); GFR NON-AFRICAN AMERICAN > 60
[2019-03-02] MEDS: Piperacill/Tazo 3.375gm in Dex 3.375 GM/50 ML BAG IVPB SCH ×4 (04:00→21:38)
[2019-03-02] MEDS ORDERED: Magnesium Sulfate 1 gm in D5W 1 GM/100 ML BAG IVPB ONE (05:00)
[2019-03-02] MEDS ORDERED: Potassium Phosphate 15 MMOLE in Sodium Chloride 0.9% 250 ML IV ONE (05:30)
[2019-03-02 05:35] LABS: ARTERIAL BLOOD GAS HCO3 22.2 mmol/L (21-28); ARTERIAL BLOOD GAS HEMOGLOBIN 6.8 g/dL (11.7-17.4); ARTERIAL BLOOD GAS O2 SAT 94.5 % (95-98); ARTERIAL BLOOD GAS PCO2 28 mm/Hg (35-45); ARTERIAL BLOOD GAS PH 7.46 (7.35-7.45); ARTERIAL BLOOD GAS PO2 50 mm/Hg (80-100); ARTERIAL BLOOD GAS TCO2 20.8 mmol/L (22-28)
--- NOTE | 2019-03-02 06:32 | CON ---
DATE: 03/01/2019 NEPHROLOGY CONSULTATION LOCATION: [facility]. HISTORY OF PRESENT ILLNESS: The patient is a 53-year-old male with past medical history of alcohol abuse, seizure disorder, status post cardiac arrest (2017), peptic ulcer disease, status post partial gastrectomy, hypertension, COPD, brought in by EMS for altered mental status from home. Nephrology is being consulted for severe hyponatremia. History is limited as the patient is currently intubated. The patient apparently was found with dried feces on his lower extremities and with smell of pungent urine. The patient in ED was found to be awake and alert, but was reportedly nonverbal. The patient was subsequently admitted to ICU. In ICU, the patient was intubated for worsening shortness of breath and for having copious secretions. In ED, the patient was given 1 liter normal saline bolus followed by 100 mL per hour normal saline. In ICU, central venous catheter placed, and the patient just started on hypertonic saline this evening. PAST MEDICAL HISTORY: As above. SOCIAL HISTORY: Alcohol abuse, cigarette user. FAMILY HISTORY: Noncontributory. PHYSICAL EXAMINATION: VITAL SIGNS: Blood pressure 139/72, heart rate 99, respirations 20, temperature 98.7, and O2 saturation 98% on nasal cannula oxygen. GENERAL: The patient is currently intubated and sedated. HEENT: Large neck circumference. No cervical lymphadenopathy. RESPIRATORY: Rales present bilaterally. CARDIOVASCULAR: Heart sounds S1 and S2 normal. No murmurs. No gallops. No rubs. GASTROINTESTINAL: Abdomen is soft and nondistended. GENITOURINARY: No bladder distention with condom catheter on. EXTREMITIES: No leg edema. SKIN: Warm. No cyanosis. NEUROLOGIC: The patient is sedated. PSYCHIATRIC: The patient is currently not agitated. LABORATORY DATA: CBC; WBC 12.7, hemoglobin 12.2, hematocrit 33.8, and platelets 185. Chemistry panel; sodium 107 on presentation, potassium 4.2, chloride 73, bicarb 19, BUN 9, creatinine 0.5, glucose 74, calcium 8.5, T-bilirubin 1.8, AST 108, ALT 34, albumin 3.6. Urine studies; urine drawn approximately three hours after presentation; urine sodium 21, urine osmolality 127. UA; 1+ protein, 1+ blood, 1+ ketones. Chest x-ray directly visualized showing bilateral opacities. ASSESSMENT AND PLAN: 1. Severe hyponatremia likely secondary to volume depletion with relatively low urine sodium and urine osmolality reflective of having been given over 1 liter normal saline bolus. The patient currently having brisk diuresis making about 200 mL urine output per hour. We will stop hypertonic saline. Need to check BMP every 4 hours. Goal should be no more than 8 mEq ____ sodium in 24-hour period. 2. Metabolic acidosis, relatively mild, had mildly increased anion gap component although lactate level is normal. We will continue to monitor. 3. Altered mental status. The patient with possible pneumonia, currently on vancomycin and Zosyn. We will check random vancomycin level tomorrow. Checking CK level for evidence of rhabdomyolysis. Thank you for this referral. We will be following closely. Messi Shafer MD
[2019-03-02 06:53] LABS: BASO % 0.6 % (0.0-2.0); EOS % 0.7 % (0.0-4.0); HEMOGLOBIN 10.5 g/dL (12.0-18.0); LYMPH # 0.9 K/uL (1.0-4.3); LYMPH % 12.9 % (20.0-40.0); MEAN CELL VOLUME 90.2 fL (80.0-94.0); MEAN CORPUSCULAR HEMOGLOBIN 32.1 pg (27.0-31.0); MEAN CORPUSCULAR HGB CONC 35.6 g/dL (33.0-37.0); MEAN PLATELET VOLUME 7.1 fL (7.2-11.7); MONO # 0.4 K/uL (0.0-0.8); MONO % 5.9 % (0.0-10.0); NEUT # 5.5 K/uL (1.8-7.0); NEUT % 79.9 % (50.0-75.0); RBC 3.27 Mil/uL (4.40-5.90); RED CELL DISTRIBUTION WIDTH 14.9 % (11.5-14.5); WHITE BLOOD COUNT 6.9 K/uL (4.8-10.8)
[2019-03-02 08:10] LABS: BLOOD UREA NITROGEN 6 mg/dL (9-20); CALCIUM 7.7 mg/dl (8.6-10.4); GFR NON-AFRICAN AMERICAN > 60
[2019-03-02] MEDS: Magnesium Sulfate 1 gm in D5W 1 GM/100 ML BAG IVPB SCH (09:06)
--- NOTE | 2019-03-02 11:01 | RAD ---
Date of service: 03/02/2019 HISTORY: Intubated COMPARISON: 03/01/2019 TECHNIQUE: 1 view obtained. FINDINGS: LUNGS: No active pulmonary disease. PLEURA: Blunting of left costophrenic angle may reflect small pleural effusion. Right costophrenic angle is clear. CARDIOVASCULAR: There is atherosclerotic calcification of the thoracic aorta. Normal heart size. ET tube and NG tube are grossly unchanged in position. Right IJ central venous catheter unchanged. No pulmonary vascular congestion. OSSEOUS STRUCTURES: No significant abnormalities. VISUALIZED UPPER ABDOMEN: Normal. OTHER FINDINGS: None. IMPRESSION: Possible small left pleural effusion. Lines and tubes unchanged
--- NOTE | 2019-03-02 11:57 | CP.CCUPN ---
<Rocky Mena - Last Filed: 03/02/19 11:52> CCU Subjective - Physician Review Subjective (Free Text): 03/02/19 11:52 PGY-1 Critical Care Progress Note for Dr. Pitts Seen and examined at bedside this AM. On mechanical ventilation RR 12, TV 500, PEEP 5, FIO2 50 sedated, on propofol gtt hypertonic saline on hold this AM for sodium correction rate tracheal aspirate for culture and sensitivity vanc/zosyn for empiric coverage CCU Objective - Vital Signs / Intake & Output Vital Signs (Last 4 hours): Vital Signs Temp Pulse Resp BP Pulse Ox 03/02/19 11:00 73 16 104/52 L 100 03/02/19 10:30 71 13 100 03/02/19 10:17 70 16 113/56 L 100 03/02/19 10:00 65 12 100 03/02/19 09:40 66 12 84/49 L 100 03/02/19 09:30 68 12 100 03/02/19 09:00 72 12 100 03/02/19 08:58 84 16 93/60 L 100 03/02/19 08:30 70 13 100 03/02/19 08:00 97.9 F 68 12 100 Intake and Output (Last 8hrs): Intake & Output 03/01/19 03/02/19 03/02/19 22:59 06:59 14:59 Intake Total 824.4 570.24 747.06 Output Total 300 1800 300 Balance 524.4 -1229.76 447.06 Weight 28.939 kg 63 kg Intake: IV 20 115.24 13.76 Intake, IV Amount 654.4 295.0 603.3 Left Hand 55.4 Right Internal Jugular 250 200 Right Medial Port 250 181 352 Internal Jugular Right Proximal Port 99.0 114.0 51.3 Internal Jugular Tube Feeding 100 160 130 Other 50 Output: Urine 300 1800 300 Condom 300 1800 300 Emesis 0 Other: # Bowel Movements 0 - Medications Active Medications: Active Medications Generic Name Dose Route Start Last Admin Trade Name Freq PRN Reason Stop Dose Admin Heparin Sodium (Porcine) 5,000 units 03/01/19 22:00 03/02/19 06:24 Heparin SC 5,000 units Q8 MAYANK Administration Piperacillin Sod/Tazobactam Sod 3.375 gm in 50 mls @ 100 mls/hr 03/01/19 16:00 03/02/19 09:20 Zosyn 3.375 Gm Iv Premix IVPB 100 mls/hr Q6H MAYANK Administration Protocol Vancomycin HCl 1 gm/ Sodium 250 mls @ 166.7 mls/hr 03/01/19 17:00 03/01/19 17:43 Chloride IVPB 166.7 mls/hr Q24H MAYANK Administration Protocol Levetiracetam 500 mg/ Dextrose 105 mls @ 420 mls/hr 03/01/19 15:15 03/02/19 03:15 IVPB 420 mls/hr Q12H MAYANK Administration Sodium Chloride 500 mls @ 25 mls/hr 03/01/19 17:15 03/01/19 17:38 Hypertonic Saline 3% IV 25 mls/hr .Q20H MAYANK Administration Propofol 1,000 mg in 100 mls @ 1.905 mls/hr 03/01/19 18:22 03/02/19 10:30 Diprivan IV 15 mcg/kg/min .Q24H PRN 5.715 mls/hr TITRATE PER MD ORDER Titration Protocol 5 MCG/KG/MIN Lorazepam 1 mg 03/01/19 15:04 03/02/19 00:33 Ativan IVP 1 mg Q6H PRN Administration Anxiety Pantoprazole Sodium 40 mg 03/01/19 22:00 03/02/19 09:20 Protonix Inj IVP 40 mg Q12 MAYANK Administration - Patient Studies Lab Studies: Microbiology Studies 03/01/19 16:20 Gram Stain - Final Trachasp Lab Studies 03/02/19 03/02/19 03/02/19 Range/Units 06:47 06:46 05:25 WBC 6.9 (4.8-10.8) K/uL RBC 3.27 L (4.40-5.90) Mil/uL Hgb 10.5 L (12.0-18.0) g/dL Hct 29.5 L (35.0-51.0) % MCV 90.2 (80.0-94.0) fL MCH 32.1 H (27.0-31.0) pg MCHC 35.6 (33.0-37.0) g/dL RDW 14.9 H (11.5-14.5) % Plt Count 164 (130-400) K/uL MPV 7.1 L (7.2-11.7) fL Neut % (Auto) 79.9 H (50.0-75.0) % Lymph % (Auto) 12.9 L (20.0-40.0) % [place] % (Auto) 5.9 (0.0-10.0) % Eos % (Auto) 0.7 (0.0-4.0) % Baso % (Auto) 0.6 (0.0-2.0) % Neut # (Auto) 5.5 (1.8-7.0) K/uL Lymph # (Auto) 0.9 L (1.0-4.3) K/uL [place] # (Auto) 0.4 (0.0-0.8) K/uL Eos # (Auto) 0.0 (0.0-0.7) K/uL Baso # (Auto) 0.0 (0.0-0.2) K/uL Puncture Site Rba pCO2 28 L (35-45) mm/Hg pO2 50 L (80-100) mm/Hg HCO3 22.2 (21-28) mmol/L ABG pH 7.46 H (7.35-7.45) ABG Total CO2 20.8 L (22-28) mmol/L ABG O2 Saturation 94.5 L (95-98) % ABG Base Excess -3.5 L (-2.0-3.0) mmol/L ABG Hemoglobin 6.8 L (11.7-17.4) g/dL ABG Carboxyhemoglobin 1.5 (0.5-1.5) % POC ABG HHb (Measured) 5.4 H (0.0-5.0) % ABG Methemoglobin 0.0 (0.0-3.0) % Bob Test Na ABG Potassium (3.6-5.2) mmol/L A-a O2 Difference 272.0 mm/Hg Respiratory Index 5.4 Hgb O2 Saturation 93.2 L (95.0-98.0) % Glucose (75-110) mg/dl Lactate (0.7-2.1) mmol/L Vent Mode Prvc Mechanical Rate 12 FiO2 50.0 % Tidal Volume 500 PEEP 5 Crit Value Called To Crit Value Called By Crit Value Read Back Blood Gas Notified Time Sodium 118 L* (132-148) mmol/L Potassium 3.3 L (3.6-5.2) mmol/L Chloride 88 L (98-107) mmol/L Carbon Dioxide 18 L (22-30) mmol/L Anion Gap 14 (10-20) BUN 6 L (9-20) mg/dL Creatinine 0.6 L (0.8-1.5) mg/dL Est GFR ( Amer) > 60 Est GFR (Non-Af Amer) > 60 Random Glucose 83 (75-110) mg/dL Serum Osmolality (272-300) mosm/kg Calcium 7.7 L (8.6-10.4) mg/dl Phosphorus (2.5-4.5) mg/dL Magnesium (1.6-2.3) mg/dL Total Bilirubin (0.2-1.3) mg/dL AST (17-59) U/L ALT (21-72) U/L Alkaline Phosphatase (38-126) U/L Ammonia (9-33) umol/L Total Creatine Kinase (55-170) U/L Total Protein (6.3-8.3) g/dL Albumin (3.5-5.0) g/dL Globulin (2.2-3.9) gm/dL Albumin/Globulin Ratio (1.0-2.1) Lipase (23-300) U/L Arterial Blood Potassium (3.6-5.2) mmol/L Urine Osmolality (300-1000) mosm/kg Ur Random Sodium mmol/L Alcohol, Quantitative (0-10) mg/dl 03/02/19 03/01/19 03/01/19 Range/Units 02:36 21:58 17:18 WBC (4.8-10.8) K/uL RBC (4.40-5.90) Mil/uL Hgb (12.0-18.0) g/dL Hct (35.0-51.0) % MCV (80.0-94.0) fL MCH (27.0-31.0) pg MCHC (33.0-37.0) g/dL RDW (11.5-14.5) % Plt Count (130-400) K/uL MPV (7.2-11.7) fL Neut % (Auto) (50.0-75.0) % Lymph % (Auto) (20.0-40.0) % [place] % (Auto) (0.0-10.0) % Eos % (Auto) (0.0-4.0) % Baso % (Auto) (0.0-2.0) % Neut # (Auto) (1.8-7.0) K/uL Lymph # (Auto) (1.0-4.3) K/uL [place] # (Auto) (0.0-0.8) K/uL Eos # (Auto) (0.0-0.7) K/uL Baso # (Auto) (0.0-0.2) K/uL Puncture Site Rba pCO2 32 L (35-45) mm/Hg pO2 355 H (80-100) mm/Hg HCO3 20.9 L (21-28) mmol/L ABG pH 7.38 (7.35-7.45) ABG Total CO2 19.9 L (22-28) mmol/L ABG O2 Saturation 99.3 H (95-98) % ABG Base Excess -5.2 L (-2.0-3.0) mmol/L ABG Hemoglobin (11.7-17.4) g/dL ABG Carboxyhemoglobin (0.5-1.5) % POC ABG HHb (Measured) (0.0-5.0) % ABG Methemoglobin (0.0-3.0) % Bob Test Na ABG Potassium 2.8 L (3.6-5.2) mmol/L A-a O2 Difference 318.0 mm/Hg Respiratory Index 0.9 Hgb O2 Saturation (95.0-98.0) % Glucose 71 L (75-110) mg/dl Lactate 0.5 L (0.7-2.1) mmol/L Vent Mode Prvc Mechanical Rate 12 FiO2 100.0 % Tidal Volume 500 PEEP 5 Crit Value Called To Navjot olmedo Crit Value Called By Yoselin Crit Value Read Back Y Blood Gas Notified Time 1726 Sodium 117 L* 115 L* 110.0 L* (132-148) mmol/L Potassium 3.2 L 3.7 (3.6-5.2) mmol/L Chloride 88 L 85 L 84.0 L (98-107) mmol/L Carbon Dioxide 22 21 L (22-30) mmol/L Anion Gap 11 13 (10-20) BUN 6 L 6 L (9-20) mg/dL Creatinine 0.6 L 0.5 L (0.8-1.5) mg/dL Est GFR ( Amer) > 60 > 60 Est GFR (Non-Af Amer) > 60 > 60 Random Glucose 79 73 L (75-110) mg/dL Serum Osmolality (272-300) mosm/kg Calcium 7.9 L 7.9 L (8.6-10.4) mg/dl Phosphorus 1.7 L (2.5-4.5) mg/dL Magnesium 1.4 L (1.6-2.3) mg/dL Total Bilirubin (0.2-1.3) mg/dL AST (17-59) U/L ALT (21-72) U/L Alkaline Phosphatase (38-126) U/L Ammonia (9-33) umol/L Total Creatine Kinase 975 H (55-170) U/L Total Protein (6.3-8.3) g/dL Albumin (3.5-5.0) g/dL Globulin (2.2-3.9) gm/dL Albumin/Globulin Ratio (1.0-2.1) Lipase (23-300) U/L Arterial Blood Potassium 2.8 L (3.6-5.2) mmol/L Urine Osmolality (300-1000) mosm/kg Ur Random Sodium mmol/L Alcohol, Quantitative (0-10) mg/dl 03/01/19 03/01/19 03/01/19 Range/Units 16:27 16:27 16:27 WBC (4.8-10.8) K/uL RBC (4.40-5.90) Mil/uL Hgb (12.0-18.0) g/dL Hct (35.0-51.0) % MCV (80.0-94.0) fL MCH (27.0-31.0) pg MCHC (33.0-37.0) g/dL RDW (11.5-14.5) % Plt Count (130-400) K/uL MPV (7.2-11.7) fL Neut % (Auto) (50.0-75.0) % Lymph % (Auto) (20.0-40.0) % [place] % (Auto) (0.0-10.0) % Eos % (Auto) (0.0-4.0) % Baso % (Auto) (0.0-2.0) % Neut # (Auto) (1.8-7.0) K/uL Lymph # (Auto) (1.0-4.3) K/uL [place] # (Auto) (0.0-0.8) K/uL Eos # (Auto) (0.0-0.7) K/uL Baso # (Auto) (0.0-0.2) K/uL Puncture Site pCO2 (35-45) mm/Hg pO2 (80-100) mm/Hg HCO3 (21-28) mmol/L ABG pH (7.35-7.45) ABG Total CO2 (22-28) mmol/L ABG O2 Saturation (95-98) % ABG Base Excess (-2.0-3.0) mmol/L ABG Hemoglobin (11.7-17.4) g/dL ABG Carboxyhemoglobin (0.5-1.5) % POC ABG HHb (Measured) (0.0-5.0) % ABG Methemoglobin (0.0-3.0) % Bob Test ABG Potassium (3.6-5.2) mmol/L A-a O2 Difference mm/Hg Respiratory Index Hgb O2 Saturation (95.0-98.0) % Glucose (75-110) mg/dl Lactate (0.7-2.1) mmol/L Vent Mode Mechanical Rate FiO2 % Tidal Volume PEEP Crit Value Called To Crit Value Called By Crit Value Read Back Blood Gas Notified Time Sodium 111 L* (132-148) mmol/L Potassium 3.1 L (3.6-5.2) mmol/L Chloride 81 L (98-107) mmol/L Carbon Dioxide 19 L (22-30) mmol/L Anion Gap 15 (10-20) BUN 8 L (9-20) mg/dL Creatinine 0.5 L (0.8-1.5) mg/dL Est GFR ( Amer) > 60 Est GFR (Non-Af Amer) > 60 Random Glucose 65 L (75-110) mg/dL Serum Osmolality 224 L (272-300) mosm/kg Calcium 7.5 L (8.6-10.4) mg/dl Phosphorus (2.5-4.5) mg/dL Magnesium (1.6-2.3) mg/dL Total Bilirubin (0.2-1.3) mg/dL AST (17-59) U/L ALT (21-72) U/L Alkaline Phosphatase (38-126) U/L Ammonia < 9 L (9-33) umol/L Total Creatine Kinase (55-170) U/L Total Protein (6.3-8.3) g/dL Albumin (3.5-5.0) g/dL Globulin (2.2-3.9) gm/dL Albumin/Globulin Ratio (1.0-2.1) Lipase (23-300) U/L Arterial Blood Potassium (3.6-5.2) mmol/L Urine Osmolality (300-1000) mosm/kg Ur Random Sodium mmol/L Alcohol, Quantitative < 10 (0-10) mg/dl 03/01/19 03/01/19 Range/Units 16:20 10:58 WBC (4.8-10.8) K/uL RBC (4.40-5.90) Mil/uL Hgb (12.0-18.0) g/dL Hct (35.0-51.0) % MCV (80.0-94.0) fL MCH (27.0-31.0) pg MCHC (33.0-37.0) g/dL RDW (11.5-14.5) % Plt Count (130-400) K/uL MPV (7.2-11.7) fL Neut % (Auto) (50.0-75.0) % Lymph % (Auto) (20.0-40.0) % [place] % (Auto) (0.0-10.0) % Eos % (Auto) (0.0-4.0) % Baso % (Auto) (0.0-2.0) % Neut # (Auto) (1.8-7.0) K/uL Lymph # (Auto) (1.0-4.3) K/uL [place] # (Auto) (0.0-0.8) K/uL Eos # (Auto) (0.0-0.7) K/uL Baso # (Auto) (0.0-0.2) K/uL Puncture Site pCO2 (35-45) mm/Hg pO2 (80-100) mm/Hg HCO3 (21-28) mmol/L ABG pH (7.35-7.45) ABG Total CO2 (22-28) mmol/L ABG O2 Saturation (95-98) % ABG Base Excess (-2.0-3.0) mmol/L ABG Hemoglobin (11.7-17.4) g/dL ABG Carboxyhemoglobin (0.5-1.5) % POC ABG HHb (Measured) (0.0-5.0) % ABG Methemoglobin (0.0-3.0) % Bob Test ABG Potassium (3.6-5.2) mmol/L A-a O2 Difference mm/Hg Respiratory Index Hgb O2 Saturation (95.0-98.0) % Glucose (75-110) mg/dl Lactate (0.7-2.1) mmol/L Vent Mode Mechanical Rate FiO2 % Tidal Volume PEEP Crit Value Called To Crit Value Called By Crit Value Read Back Blood Gas Notified Time Sodium 107 L* (132-148) mmol/L Potassium 4.2 (3.6-5.2) mmol/L Chloride 73 L D (98-107) mmol/L Carbon Dioxide 19 L (22-30) mmol/L Anion Gap 20 (10-20) BUN 9 (9-20) mg/dL Creatinine 0.5 L (0.8-1.5) mg/dL Est GFR ( Amer) > 60 Est GFR (Non-Af Amer) > 60 Random Glucose 74 L D (75-110) mg/dL Serum Osmolality (272-300) mosm/kg Calcium 8.5 L (8.6-10.4) mg/dl Phosphorus (2.5-4.5) mg/dL Magnesium (1.6-2.3) mg/dL Total Bilirubin 1.8 H (0.2-1.3) mg/dL AST 108 H D (17-59) U/L ALT 34 (21-72) U/L Alkaline Phosphatase 118 (38-126) U/L Ammonia (9-33) umol/L Total Creatine Kinase (55-170) U/L Total Protein 6.2 L (6.3-8.3) g/dL Albumin 3.6 (3.5-5.0) g/dL Globulin 2.6 (2.2-3.9) gm/dL Albumin/Globulin Ratio 1.4 (1.0-2.1) Lipase 47 (23-300) U/L Arterial Blood Potassium (3.6-5.2) mmol/L Urine Osmolality 127 L (300-1000) mosm/kg Ur Random Sodium 21 mmol/L Alcohol, Quantitative (0-10) mg/dl Laboratory Results - last 24 hr 03/01/19 03/01/19 03/01/19 10:58 16:20 16:27 WBC RBC Hgb Hct MCV MCH MCHC RDW Plt Count MPV Neut % (Auto) Lymph % (Auto) [place] % (Auto) Eos % (Auto) Baso % (Auto) Neut # (Auto) Lymph # (Auto) [place] # (Auto) Eos # (Auto) Baso # (Auto) Puncture Site pCO2 pO2 HCO3 ABG pH ABG Total CO2 ABG O2 Saturation ABG Base Excess ABG Hemoglobin ABG Carboxyhemoglobin POC ABG HHb (Measured) ABG Methemoglobin Bob Test ABG Potassium A-a O2 Difference Respiratory Index Hgb O2 Saturation Glucose Lactate Vent Mode Mechanical Rate FiO2 Tidal Volume PEEP Crit Value Called To Crit Value Called By Crit Value Read Back Blood Gas Notified Time Sodium 107 L* Potassium 4.2 Chloride 73 L D Carbon Dioxide 19 L Anion Gap 20 BUN 9 Creatinine 0.5 L Est GFR ( Amer) > 60 Est GFR (Non-Af Amer) > 60 Random Glucose 74 L D Serum Osmolality Calcium 8.5 L Phosphorus Magnesium Total Bilirubin 1.8 H AST 108 H D ALT 34 Alkaline Phosphatase 118 Ammonia < 9 L Total Creatine Kinase Total Protein 6.2 L Albumin 3.6 Globulin 2.6 Albumin/Globulin Ratio 1.4 Lipase 47 Arterial Blood Potassium Urine Osmolality 127 L Ur Random Sodium 21 Alcohol, Quantitative 03/01/19 03/01/19 03/01/19 16:27 16:27 17:18 WBC RBC Hgb Hct MCV MCH MCHC RDW Plt Count MPV Neut % (Auto) Lymph % (Auto) [place] % (Auto) Eos % (Auto) Baso % (Auto) Neut # (Auto) Lymph # (Auto) [place] # (Auto) Eos # (Auto) Baso # (Auto) Puncture Site Rba pCO2 32 L pO2 355 H HCO3 20.9 L ABG pH 7.38 ABG Total CO2 19.9 L ABG O2 Saturation 99.3 H ABG Base Excess -5.2 L ABG Hemoglobin ABG Carboxyhemoglobin POC ABG HHb (Measured) ABG Methemoglobin Bob Test Na ABG Potassium 2.8 L A-a O2 Difference 318.0 Respiratory Index 0.9 Hgb O2 Saturation Glucose 71 L Lactate 0.5 L Vent Mode Prvc Mechanical Rate 12 FiO2 100.0 Tidal Volume 500 PEEP 5 Crit Value Called To Navjot olmedo Crit Value Called By Yoselin Crit Value Read Back Y Blood Gas Notified Time 1721 Sodium 111 L* 110.0 L* Potassium 3.1 L Chloride 81 L 84.0 L Carbon Dioxide 19 L Anion Gap 15 BUN 8 L Creatinine 0.5 L Est GFR ( Amer) > 60 Est GFR (Non-Af Amer) > 60 Random Glucose 65 L Serum Osmolality 224 L Calcium 7.5 L Phosphorus Magnesium Total Bilirubin AST ALT Alkaline Phosphatase Ammonia Total Creatine Kinase Total Protein Albumin Globulin Albumin/Globulin Ratio Lipase Arterial Blood Potassium 2.8 L Urine Osmolality Ur Random Sodium Alcohol, Quantitative < 10 03/01/19 03/02/19 03/02/19 21:58 02:36 05:25 WBC RBC Hgb Hct MCV MCH MCHC RDW Plt Count MPV Neut % (Auto) Lymph % (Auto) [place] % (Auto) Eos % (Auto) Baso % (Auto) Neut # (Auto) Lymph # (Auto) [place] # (Auto) Eos # (Auto) Baso # (Auto) Puncture Site Rba pCO2 28 L pO2 50 L HCO3 22.2 ABG pH 7.46 H ABG Total CO2 20.8 L ABG O2 Saturation 94.5 L ABG Base Excess -3.5 L ABG Hemoglobin 6.8 L ABG Carboxyhemoglobin 1.5 POC ABG HHb (Measured) 5.4 H ABG Methemoglobin 0.0 Bob Test Na ABG Potassium A-a O2 Difference 272.0 Respiratory Index 5.4 Hgb O2 Saturation 93.2 L Glucose Lactate Vent Mode Prvc Mechanical Rate 12 FiO2 50.0 Tidal Volume 500 PEEP 5 Crit Value Called To Crit Value Called By Crit Value Read Back Blood Gas Notified Time Sodium 115 L* 117 L* Potassium 3.7 3.2 L Chloride 85 L 88 L Carbon Dioxide 21 L 22 Anion Gap 13 11 BUN 6 L 6 L Creatinine 0.5 L 0.6 L Est GFR ( Amer) > 60 > 60 Est GFR (Non-Af Amer) > 60 > 60 Random Glucose 73 L 79 Serum Osmolality Calcium 7.9 L 7.9 L Phosphorus 1.7 L Magnesium 1.4 L Total Bilirubin AST ALT Alkaline Phosphatase Ammonia Total Creatine Kinase 975 H Total Protein Albumin Globulin Albumin/Globulin Ratio Lipase Arterial Blood Potassium Urine Osmolality Ur Random Sodium Alcohol, Quantitative 03/02/19 03/02/19 06:46 06:47 WBC 6.9 RBC 3.27 L Hgb 10.5 L Hct 29.5 L MCV 90.2 MCH 32.1 H MCHC 35.6 RDW 14.9 H Plt Count 164 MPV 7.1 L Neut % (Auto) 79.9 H Lymph % (Auto) 12.9 L [place] % (Auto) 5.9 Eos % (Auto) 0.7 Baso % (Auto) 0.6 Neut # (Auto) 5.5 Lymph # (Auto) 0.9 L [place] # (Auto) 0.4 Eos # (Auto) 0.0 Baso # (Auto) 0.0 Puncture Site pCO2 pO2 HCO3 ABG pH ABG Total CO2 ABG O2 Saturation ABG Base Excess ABG Hemoglobin ABG Carboxyhemoglobin POC ABG HHb (Measured) ABG Methemoglobin Bob Test ABG Potassium A-a O2 Difference Respiratory Index Hgb O2 Saturation Glucose Lactate Vent Mode Mechanical Rate FiO2 Tidal Volume PEEP Crit Value Called To Crit Value Called By Crit Value Read Back Blood Gas Notified Time Sodium 118 L* Potassium 3.3 L Chloride 88 L Carbon Dioxide 18 L Anion Gap 14 BUN 6 L Creatinine 0.6 L Est GFR ( Amer) > 60 Est GFR (Non-Af Amer) > 60 Random Glucose 83 Serum Osmolality Calcium 7.7 L Phosphorus Magnesium Total Bilirubin AST ALT Alkaline Phosphatase Ammonia Total Creatine Kinase Total Protein Albumin Globulin Albumin/Globulin Ratio Lipase Arterial Blood Potassium Urine Osmolality Ur Random Sodium Alcohol, Quantitative Radiology Impressions: Radiology Impressions Chest X-Ray 03/01/19 15:31 IMPRESSION: Right infrahilar opacity common nonspecific. Left basilar linear atelectasis. ET tube and NG tube are appropriately positioned. Chest X-Ray 03/02/19 07:00 IMPRESSION: Possible small left pleural effusion. Lines and tubes unchanged Fingerstick Blood Sugar Results: 165 Review of Systems - Review of Systems All systems: reviewed and no additional remarkable complaints except Review of Systems: as per HPI Critical Care Progress Note - Nutrition Nutrition: Nutrition Category Date Time Status NPO Diet [DIET] Diets 03/01/19 Dinner Active Assessment/Plan - Assessment and Plan (Free Text) Assessment: 53 yo male with pmhx of alcohol abuse, seizure disorder, cardiac arrest (2017), HTN, COPD brought in by ALS for AMS, unknown onset of time. Na 107 on admission. Plan: Neuro -on mechanical vent FIO2 100, PEEP 5 -sedated, on propofol gtt -seizure disorder -resume home keppra 500 mg q12 IVPB -hx of alcohol abuse -ativan 1 mg q4 prn Pulm -multifocal pneumonia on CXR, worse in RLL -f/u blood, sputum cultures -vanc/zosyn for empiric coverage CV -rate controlled -home cardizem held Heme -no acute issues Endo -no acute issues GI -protonix 40 mg IVP q12 Renal -hyponatremic, Na 118 (03/02) -Nephrology (Dr. Shafer) on case -f/u urine, serum lytes ID -leukocytosis, bandemia -f/u sputum, blood cultures -vanc/zosyn PPx, Diet, Disposition -DVT: scds, heparin -GI: protonix 40 mg IVP q12 -Diet: tube feeds Case discussed with Dr. Navjot Mena DO, PGY-1 <Hardeep Pitts M - Last Filed: 03/02/19 16:17> CCU Objective - Vital Signs / Intake & Output Vital Signs (Last 4 hours): Vital Signs Pulse Resp BP Pulse Ox 03/02/19 15:00 69 12 100 03/02/19 14:40 76 14 106/53 L 100 03/02/19 14:30 73 13 100 03/02/19 14:00 67 12 100 03/02/19 13:40 73 10 L 101/57 L 03/02/19 13:30 69 10 L 100 03/02/19 13:00 77 15 100 03/02/19 12:40 75 14 113/54 L 03/02/19 12:30 68 12 100 Intake and Output (Last 8hrs): Intake & Output 03/02/19 03/02/19 03/02/19 06:59 14:59 22:59 Intake Total 570.24 1954.16 635.7 Output Total 1800 300 0 Balance -1229.76 1654.16 635.7 Weight 63 lb 12.8 oz 138 lb 14.259 oz Intake: IV 115.24 13.76 Intake, IV Amount 295.0 1720.4 605.7 Right Internal Jugular 1200 500 Right Medial Port 181 452 100 Internal Jugular Right Proximal Port 114.0 68.4 5.7 Internal Jugular Tube Feeding 160 220 30 Output: Urine 1800 300 Condom 1800 300 Emesis 0 0 Other: # Bowel Movements 0 0 - Medications Active Medications: Active Medications Generic Name Dose Route Start Last Admin Trade Name Freq PRN Reason Stop Dose Admin Heparin Sodium (Porcine) 5,000 units 03/01/19 22:00 03/02/19 14:20 Heparin SC 5,000 units Q8 MYAANK Administration Piperacillin Sod/Tazobactam Sod 3.375 gm in 50 mls @ 100 mls/hr 03/01/19 16:00 03/02/19 15:19 Zosyn 3.375 Gm Iv Premix IVPB 100 mls/hr Q6H MAYANK Administration Protocol Vancomycin HCl 1 gm/ Sodium 250 mls @ 166.7 mls/hr 03/01/19 17:00 03/01/19 17:43 Chloride IVPB 166.7 mls/hr Q24H MAYANK Administration Protocol Levetiracetam 500 mg/ Dextrose 105 mls @ 420 mls/hr 03/01/19 15:15 03/02/19 14:29 IVPB 420 mls/hr Q12H MAYANK Administration Sodium Chloride 500 mls @ 25 mls/hr 03/01/19 17:15 03/01/19 17:38 Hypertonic Saline 3% IV 25 mls/hr .Q20H MAYANK Administration Propofol 1,000 mg in 100 mls @ 1.905 mls/hr 03/01/19 18:22 03/02/19 10:30 Diprivan IV 15 mcg/kg/min .Q24H PRN 5.715 mls/hr TITRATE PER MD ORDER Titration Protocol 5 MCG/KG/MIN Dextrose 1,000 mls @ 500 mls/hr 03/02/19 13:00 03/02/19 14:01 Dextrose 5% In Water 1000 Ml IV 03/02/19 16:59 500 mls/hr .Q2H MAYANK Administration Lorazepam 1 mg 03/01/19 15:04 03/02/19 00:33 Ativan IVP 1 mg Q6H PRN Administration Anxiety Pantoprazole Sodium 40 mg 03/01/19 22:00 03/02/19 09:20 Protonix Inj IVP 40 mg Q12 MAYANK Administration - Patient Studies Lab Studies: Microbiology Studies 03/01/19 13:48 Blood Culture - Preliminary Blood NO GROWTH AFTER 24 HOURS 03/01/19 13:48 Blood Culture - Preliminary Blood NO GROWTH AFTER 24 HOURS 03/01/19 16:20 Gram Stain - Final Trachasp Lab Studies 03/02/19 03/02/19 03/02/19 Range/Units 11:53 06:47 06:46 WBC 6.9 (4.8-10.8) K/uL RBC 3.27 L (4.40-5.90) Mil/uL Hgb 10.5 L (12.0-18.0) g/dL Hct 29.5 L (35.0-51.0) % MCV 90.2 (80.0-94.0) fL MCH 32.1 H (27.0-31.0) pg MCHC 35.6 (33.0-37.0) g/dL RDW 14.9 H (11.5-14.5) % Plt Count 164 (130-400) K/uL MPV 7.1 L (7.2-11.7) fL Neut % (Auto) 79.9 H (50.0-75.0) % Lymph % (Auto) 12.9 L (20.0-40.0) % [place] % (Auto) 5.9 (0.0-10.0) % Eos % (Auto) 0.7 (0.0-4.0) % Baso % (Auto) 0.6 (0.0-2.0) % Neut # (Auto) 5.5 (1.8-7.0) K/uL Lymph # (Auto) 0.9 L (1.0-4.3) K/uL [place] # (Auto) 0.4 (0.0-0.8) K/uL Eos # (Auto) 0.0 (0.0-0.7) K/uL Baso # (Auto) 0.0 (0.0-0.2) K/uL Puncture Site pCO2 (35-45) mm/Hg pO2 (80-100) mm/Hg HCO3 (21-28) mmol/L ABG pH (7.35-7.45) ABG Total CO2 (22-28) mmol/L ABG O2 Saturation (95-98) % ABG Base Excess (-2.0-3.0) mmol/L ABG Hemoglobin (11.7-17.4) g/dL ABG Carboxyhemoglobin (0.5-1.5) % POC ABG HHb (Measured) (0.0-5.0) % ABG Methemoglobin (0.0-3.0) % Bob Test ABG Potassium (3.6-5.2) mmol/L A-a O2 Difference mm/Hg Respiratory Index Hgb O2 Saturation (95.0-98.0) % Glucose (75-110) mg/dl Lactate (0.7-2.1) mmol/L Vent Mode Mechanical Rate FiO2 % Tidal Volume PEEP Crit Value Called To Crit Value Called By Crit Value Read Back Blood Gas Notified Time Sodium 121 L 118 L* (132-148) mmol/L Potassium 3.1 L 3.3 L (3.6-5.2) mmol/L Chloride 90 L 88 L (98-107) mmol/L Carbon Dioxide 22 18 L (22-30) mmol/L Anion Gap 12 14 (10-20) BUN 6 L 6 L (9-20) mg/dL Creatinine 0.6 L 0.6 L (0.8-1.5) mg/dL Est GFR ( Amer) > 60 > 60 Est GFR (Non-Af Amer) > 60 > 60 Random Glucose 106 D 83 (75-110) mg/dL Serum Osmolality (272-300) mosm/kg Calcium 8.1 L 7.7 L (8.6-10.4) mg/dl Phosphorus (2.5-4.5) mg/dL Magnesium (1.6-2.3) mg/dL Ammonia (9-33) umol/L Total Creatine Kinase (55-170) U/L Arterial Blood Potassium (3.6-5.2) mmol/L Urine Osmolality (300-1000) mosm/kg Ur Random Sodium mmol/L Alcohol, Quantitative (0-10) mg/dl 03/02/19 03/02/19 03/01/19 Range/Units 05:25 02:36 21:58 WBC (4.8-10.8) K/uL RBC (4.40-5.90) Mil/uL Hgb (12.0-18.0) g/dL Hct (35.0-51.0) % MCV (80.0-94.0) fL MCH (27.0-31.0) pg MCHC (33.0-37.0) g/dL RDW (11.5-14.5) % Plt Count (130-400) K/uL MPV (7.2-11.7) fL Neut % (Auto) (50.0-75.0) % Lymph % (Auto) (20.0-40.0) % [place] % (Auto) (0.0-10.0) % Eos % (Auto) (0.0-4.0) % Baso % (Auto) (0.0-2.0) % Neut # (Auto) (1.8-7.0) K/uL Lymph # (Auto) (1.0-4.3) K/uL [place] # (Auto) (0.0-0.8) K/uL Eos # (Auto) (0.0-0.7) K/uL Baso # (Auto) (0.0-0.2) K/uL Puncture Site Rba pCO2 28 L (35-45) mm/Hg pO2 50 L (80-100) mm/Hg HCO3 22.2 (21-28) mmol/L ABG pH 7.46 H (7.35-7.45) ABG Total CO2 20.8 L (22-28) mmol/L ABG O2 Saturation 94.5 L (95-98) % ABG Base Excess -3.5 L (-2.0-3.0) mmol/L ABG Hemoglobin 6.8 L (11.7-17.4) g/dL ABG Carboxyhemoglobin 1.5 (0.5-1.5) % POC ABG HHb (Measured) 5.4 H (0.0-5.0) % ABG Methemoglobin 0.0 (0.0-3.0) % Bob Test Na ABG Potassium (3.6-5.2) mmol/L A-a O2 Difference 272.0 mm/Hg Respiratory Index 5.4 Hgb O2 Saturation 93.2 L (95.0-98.0) % Glucose (75-110) mg/dl Lactate (0.7-2.1) mmol/L Vent Mode Prvc Mechanical Rate 12 FiO2 50.0 % Tidal Volume 500 PEEP 5 Crit Value Called To Crit Value Called By Crit Value Read Back Blood Gas Notified Time Sodium 117 L* 115 L* (132-148) mmol/L Potassium 3.2 L 3.7 (3.6-5.2) mmol/L Chloride 88 L 85 L (98-107) mmol/L Carbon Dioxide 22 21 L (22-30) mmol/L Anion Gap 11 13 (10-20) BUN 6 L 6 L (9-20) mg/dL Creatinine 0.6 L 0.5 L (0.8-1.5) mg/dL Est GFR ( Amer) > 60 > 60 Est GFR (Non-Af Amer) > 60 > 60 Random Glucose 79 73 L (75-110) mg/dL Serum Osmolality (272-300) mosm/kg Calcium 7.9 L 7.9 L (8.6-10.4) mg/dl Phosphorus 1.7 L (2.5-4.5) mg/dL Magnesium 1.4 L (1.6-2.3) mg/dL Ammonia (9-33) umol/L Total Creatine Kinase 975 H (55-170) U/L Arterial Blood Potassium (3.6-5.2) mmol/L Urine Osmolality (300-1000) mosm/kg Ur Random Sodium mmol/L Alcohol, Quantitative (0-10) mg/dl 03/01/19 03/01/19 03/01/19 Range/Units 17:18 16:27 16:27 WBC (4.8-10.8) K/uL RBC (4.40-5.90) Mil/uL Hgb (12.0-18.0) g/dL Hct (35.0-51.0) % MCV (80.0-94.0) fL MCH (27.0-31.0) pg MCHC (33.0-37.0) g/dL RDW (11.5-14.5) % Plt Count (130-400) K/uL MPV (7.2-11.7) fL Neut % (Auto) (50.0-75.0) % Lymph % (Auto) (20.0-40.0) % [place] % (Auto) (0.0-10.0) % Eos % (Auto) (0.0-4.0) % Baso % (Auto) (0.0-2.0) % Neut # (Auto) (1.8-7.0) K/uL Lymph # (Auto) (1.0-4.3) K/uL [place] # (Auto) (0.0-0.8) K/uL Eos # (Auto) (0.0-0.7) K/uL Baso # (Auto) (0.0-0.2) K/uL Puncture Site Rba pCO2 32 L (35-45) mm/Hg pO2 355 H (80-100) mm/Hg HCO3 20.9 L (21-28) mmol/L ABG pH 7.38 (7.35-7.45) ABG Total CO2 19.9 L (22-28) mmol/L ABG O2 Saturation 99.3 H (95-98) % ABG Base Excess -5.2 L (-2.0-3.0) mmol/L ABG Hemoglobin (11.7-17.4) g/dL ABG Carboxyhemoglobin (0.5-1.5) % POC ABG HHb (Measured) (0.0-5.0) % ABG Methemoglobin (0.0-3.0) % Bob Test Na ABG Potassium 2.8 L (3.6-5.2) mmol/L A-a O2 Difference 318.0 mm/Hg Respiratory Index 0.9 Hgb O2 Saturation (95.0-98.0) % Glucose 71 L (75-110) mg/dl Lactate 0.5 L (0.7-2.1) mmol/L Vent Mode Prvc Mechanical Rate 12 FiO2 100.0 % Tidal Volume 500 PEEP 5 Crit Value Called To Navjot olmedo Crit Value Called By Yoselin Crit Value Read Back Y Blood Gas Notified Time 1721 Sodium 110.0 L* 111 L* (132-148) mmol/L Potassium 3.1 L (3.6-5.2) mmol/L Chloride 84.0 L 81 L (98-107) mmol/L Carbon Dioxide 19 L (22-30) mmol/L Anion Gap 15 (10-20) BUN 8 L (9-20) mg/dL Creatinine 0.5 L (0.8-1.5) mg/dL Est GFR ( Amer) > 60 Est GFR (Non-Af Amer) > 60 Random Glucose 65 L (75-110) mg/dL Serum Osmolality 224 L (272-300) mosm/kg Calcium 7.5 L (8.6-10.4) mg/dl Phosphorus (2.5-4.5) mg/dL Magnesium (1.6-2.3) mg/dL Ammonia (9-33) umol/L Total Creatine Kinase (55-170) U/L Arterial Blood Potassium 2.8 L (3.6-5.2) mmol/L Urine Osmolality (300-1000) mosm/kg Ur Random Sodium mmol/L Alcohol, Quantitative < 10 (0-10) mg/dl 03/01/19 03/01/19 Range/Units 16:27 16:20 WBC (4.8-10.8) K/uL RBC (4.40-5.90) Mil/uL Hgb (12.0-18.0) g/dL Hct (35.0-51.0) % MCV (80.0-94.0) fL MCH (27.0-31.0) pg MCHC (33.0-37.0) g/dL RDW (11.5-14.5) % Plt Count (130-400) K/uL MPV (7.2-11.7) fL Neut % (Auto) (50.0-75.0) % Lymph % (Auto) (20.0-40.0) % [place] % (Auto) (0.0-10.0) % Eos % (Auto) (0.0-4.0) % Baso % (Auto) (0.0-2.0) % Neut # (Auto) (1.8-7.0) K/uL Lymph # (Auto) (1.0-4.3) K/uL [place] # (Auto) (0.0-0.8) K/uL Eos # (Auto) (0.0-0.7) K/uL Baso # (Auto) (0.0-0.2) K/uL Puncture Site pCO2 (35-45) mm/Hg pO2 (80-100) mm/Hg HCO3 (21-28) mmol/L ABG pH (7.35-7.45) ABG Total CO2 (22-28) mmol/L ABG O2 Saturation (95-98) % ABG Base Excess (-2.0-3.0) mmol/L ABG Hemoglobin (11.7-17.4) g/dL ABG Carboxyhemoglobin (0.5-1.5) % POC ABG HHb (Measured) (0.0-5.0) % ABG Methemoglobin (0.0-3.0) % Bob Test ABG Potassium (3.6-5.2) mmol/L A-a O2 Difference mm/Hg Respiratory Index Hgb O2 Saturation (95.0-98.0) % Glucose (75-110) mg/dl Lactate (0.7-2.1) mmol/L Vent Mode Mechanical Rate FiO2 % Tidal Volume PEEP Crit Value Called To Crit Value Called By Crit Value Read Back Blood Gas Notified Time Sodium (132-148) mmol/L Potassium (3.6-5.2) mmol/L Chloride (98-107) mmol/L Carbon Dioxide (22-30) mmol/L Anion Gap (10-20) BUN (9-20) mg/dL Creatinine (0.8-1.5) mg/dL Est GFR ( Amer) Est GFR (Non-Af Amer) Random Glucose (75-110) mg/dL Serum Osmolality (272-300) mosm/kg Calcium (8.6-10.4) mg/dl Phosphorus (2.5-4.5) mg/dL Magnesium (1.6-2.3) mg/dL Ammonia < 9 L (9-33) umol/L Total Creatine Kinase (55-170) U/L Arterial Blood Potassium (3.6-5.2) mmol/L Urine Osmolality 127 L (300-1000) mosm/kg Ur Random Sodium 21 mmol/L Alcohol, Quantitative (0-10) mg/dl Laboratory Results - last 24 hr 03/01/19 03/01/19 03/01/19 16:20 16:27 16:27 WBC RBC Hgb Hct MCV MCH MCHC RDW Plt Count MPV Neut % (Auto) Lymph % (Auto) [place] % (Auto) Eos % (Auto) Baso % (Auto) Neut # (Auto) Lymph # (Auto) [place] # (Auto) Eos # (Auto) Baso # (Auto) Puncture Site pCO2 pO2 HCO3 ABG pH ABG Total CO2 ABG O2 Saturation ABG Base Excess ABG Hemoglobin ABG Carboxyhemoglobin POC ABG HHb (Measured) ABG Methemoglobin Bob Test ABG Potassium A-a O2 Difference Respiratory Index Hgb O2 Saturation Glucose Lactate Vent Mode Mechanical Rate FiO2 Tidal Volume PEEP Crit Value Called To Crit Value Called By Crit Value Read Back Blood Gas Notified Time Sodium 111 L* Potassium 3.1 L Chloride 81 L Carbon Dioxide 19 L Anion Gap 15 BUN 8 L Creatinine 0.5 L Est GFR ( Amer) > 60 Est GFR (Non-Af Amer) > 60 Random Glucose 65 L Serum Osmolality Calcium 7.5 L Phosphorus Magnesium Ammonia < 9 L Total Creatine Kinase Arterial Blood Potassium Urine Osmolality 127 L Ur Random Sodium 21 Alcohol, Quantitative < 10 03/01/19 03/01/19 03/01/19 16:27 17:18 21:58 WBC RBC Hgb Hct MCV MCH MCHC RDW Plt Count MPV Neut % (Auto) Lymph % (Auto) [place] % (Auto) Eos % (Auto) Baso % (Auto) Neut # (Auto) Lymph # (Auto) [place] # (Auto) Eos # (Auto) Baso # (Auto) Puncture Site Rba pCO2 32 L pO2 355 H HCO3 20.9 L ABG pH 7.38 ABG Total CO2 19.9 L ABG O2 Saturation 99.3 H ABG Base Excess -5.2 L ABG Hemoglobin ABG Carboxyhemoglobin POC ABG HHb (Measured) ABG Methemoglobin Bob Test Na ABG Potassium 2.8 L A-a O2 Difference 318.0 Respiratory Index 0.9 Hgb O2 Saturation Glucose 71 L Lactate 0.5 L Vent Mode Prvc Mechanical Rate 12 FiO2 100.0 Tidal Volume 500 PEEP 5 Crit Value Called To Navjot olmedo Crit Value Called By Yoselin Crit Value Read Back Y Blood Gas Notified Time 1721 Sodium 110.0 L* 115 L* Potassium 3.7 Chloride 84.0 L 85 L Carbon Dioxide 21 L Anion Gap 13 BUN 6 L Creatinine 0.5 L Est GFR ( Amer) > 60 Est GFR (Non-Af Amer) > 60 Random Glucose 73 L Serum Osmolality 224 L Calcium 7.9 L Phosphorus Magnesium Ammonia Total Creatine Kinase 975 H Arterial Blood Potassium 2.8 L Urine Osmolality Ur Random Sodium Alcohol, Quantitative 03/02/19 03/02/19 03/02/19 02:36 05:25 06:46 WBC RBC Hgb Hct MCV MCH MCHC RDW Plt Count MPV Neut % (Auto) Lymph % (Auto) [place] % (Auto) Eos % (Auto) Baso % (Auto) Neut # (Auto) Lymph # (Auto) [place] # (Auto) Eos # (Auto) Baso # (Auto) Puncture Site Rba pCO2 28 L pO2 50 L HCO3 22.2 ABG pH 7.46 H ABG Total CO2 20.8 L ABG O2 Saturation 94.5 L ABG Base Excess -3.5 L ABG Hemoglobin 6.8 L ABG Carboxyhemoglobin 1.5 POC ABG HHb (Measured) 5.4 H ABG Methemoglobin 0.0 Bob Test Na ABG Potassium A-a O2 Difference 272.0 Respiratory Index 5.4 Hgb O2 Saturation 93.2 L Glucose Lactate Vent Mode Prvc Mechanical Rate 12 FiO2 50.0 Tidal Volume 500 PEEP 5 Crit Value Called To Crit Value Called By Crit Value Read Back Blood Gas Notified Time Sodium 117 L* 118 L* Potassium 3.2 L 3.3 L Chloride 88 L 88 L Carbon Dioxide 22 18 L Anion Gap 11 14 BUN 6 L 6 L Creatinine 0.6 L 0.6 L Est GFR ( Amer) > 60 > 60 Est GFR (Non-Af Amer) > 60 > 60 Random Glucose 79 83 Serum Osmolality Calcium 7.9 L 7.7 L Phosphorus 1.7 L Magnesium 1.4 L Ammonia Total Creatine Kinase Arterial Blood Potassium Urine Osmolality Ur Random Sodium Alcohol, Quantitative 03/02/19 03/02/19 06:47 11:53 WBC 6.9 RBC 3.27 L Hgb 10.5 L Hct 29.5 L MCV 90.2 MCH 32.1 H MCHC 35.6 RDW 14.9 H Plt Count 164 MPV 7.1 L Neut % (Auto) 79.9 H Lymph % (Auto) 12.9 L [place] % (Auto) 5.9 Eos % (Auto) 0.7 Baso % (Auto) 0.6 Neut # (Auto) 5.5 Lymph # (Auto) 0.9 L [place] # (Auto) 0.4 Eos # (Auto) 0.0 Baso # (Auto) 0.0 Puncture Site pCO2 pO2 HCO3 ABG pH ABG Total CO2 ABG O2 Saturation ABG Base Excess ABG Hemoglobin ABG Carboxyhemoglobin POC ABG HHb (Measured) ABG Methemoglobin Bob Test ABG Potassium A-a O2 Difference Respiratory Index Hgb O2 Saturation Glucose Lactate Vent Mode Mechanical Rate FiO2 Tidal Volume PEEP Crit Value Called To Crit Value Called By Crit Value Read Back Blood Gas Notified Time Sodium 121 L Potassium 3.1 L Chloride 90 L Carbon Dioxide 22 Anion Gap 12 BUN 6 L Creatinine 0.6 L Est GFR ( Amer) > 60 Est GFR (Non-Af Amer) > 60 Random Glucose 106 D Serum Osmolality Calcium 8.1 L Phosphorus Magnesium Ammonia Total Creatine Kinase Arterial Blood Potassium Urine Osmolality Ur Random Sodium Alcohol, Quantitative Radiology Impressions: Radiology Impressions Chest X-Ray 03/01/19 15:31 IMPRESSION: Right infrahilar opacity common nonspecific. Left basilar linear atelectasis. ET tube and NG tube are appropriately positioned. Chest X-Ray 03/02/19 07:00 IMPRESSION: Possible small left pleural effusion. Lines and tubes unchanged Critical Care Progress Note - Nutrition Nutrition: Nutrition Category Date Time Status NPO Diet [DIET] Diets 03/01/19 Dinner Active Attending/Attestation - Attestation I have personally seen and examined this patient.: Yes I have fully participated in the care of the patient.: Yes I have reviewed all pertinent clinical information: Yes Notes (Text): 03/02/19 16:17 Today: February The Patient was seen and examined at the bedside, Medical records reviewed, and management issues were discussed and formulated with the house staff. I have reviewed all the relevant clinical, laboratory, hemodynamic, radiographic data and medications Events reviewed Pain issues, skin care, head of the bed elevation, glycemic control were addressed. Agree with above resident's assessment and treatment plans of care as transcribed in Dr. Mena's note.
[2019-03-02 12:19] LABS: BLOOD UREA NITROGEN 6 mg/dL (9-20); CALCIUM 8.1 mg/dl (8.6-10.4); GFR NON-AFRICAN AMERICAN > 60
[2019-03-02] MEDS: Potassium Chloride 20 mEq/15 ml LIQ UD PO SCH ×2 (14:02→16:00)
--- NOTE | 2019-03-02 18:24 | CP.PCM.PN ---
Subjective - Date & Time of Evaluation Date of Evaluation: 03/02/19 Time of Evaluation: 13:00 - Subjective Subjective: Patient still intubated; not agitated; Objective - Vital Signs/Intake and Output Vital Signs (last 24 hours): Temp Pulse Resp BP Pulse Ox 97.7 F 69 12 106/53 L 100 03/02/19 16:00 03/02/19 15:00 03/02/19 15:00 03/02/19 14:40 03/02/19 16:00 Intake and Output: 03/02/19 03/02/19 06:59 18:59 Intake Total 936.04 3136.96 Output Total 1999 1460 Balance -1063.96 1676.96 - Medications Medications: Current Medications Heparin Sodium (Porcine) (Heparin) 5,000 units SC Q8 MAYANK Last Admin: 03/02/19 14:20 Dose: 5,000 units Piperacillin Sod/Tazobactam Sod (Zosyn 3.375 Gm Iv Premix) 3.375 gm in 50 mls @ 100 mls/hr IVPB Q6H MAYANK; Protocol Last Admin: 03/02/19 15:19 Dose: 100 mls/hr Vancomycin HCl 1 gm/ Sodium (Chloride) 250 mls @ 166.7 mls/hr IVPB Q24H MAYANK; Protocol Last Admin: 03/02/19 16:17 Dose: 166.7 mls/hr Levetiracetam 500 mg/ Dextrose 105 mls @ 420 mls/hr IVPB Q12H MAYANK Last Admin: 03/02/19 14:29 Dose: 420 mls/hr Sodium Chloride (Hypertonic Saline 3%) 500 mls @ 25 mls/hr IV .Q20H MAYANK Last Admin: 03/01/19 17:38 Dose: 25 mls/hr Propofol (Diprivan) 1,000 mg in 100 mls @ 1.905 mls/hr IV .Q24H PRN; Protocol PRN Reason: TITRATE PER MD ORDER Last Admin: 03/02/19 17:23 Dose: 35 mcg/kg/min, 13.335 mls/hr Lorazepam (Ativan) 1 mg IVP Q6H PRN PRN Reason: Anxiety Last Admin: 03/02/19 00:33 Dose: 1 mg Pantoprazole Sodium (Protonix Inj) 40 mg IVP Q12 MAYANK Last Admin: 03/02/19 09:20 Dose: 40 mg - Labs Labs: 03/02/19 06:47 03/02/19 11:53 PT 11.7 SECONDS (9.7-12.2) 03/01/19 10:58 INR 1.1 03/01/19 10:58 APTT 30.0 SECONDS (21-34) 03/01/19 10:58 - Constitutional Appears: Non-toxic, No Acute Distress - Eye Exam Eye Exam: Normal appearance. absent: Scleral icterus - Respiratory Exam Respiratory Exam: Clear to Ausculation Bilateral. absent: Respiratory Distress - Cardiovascular Exam Cardiovascular Exam: RRR, +S1, +S2 - GI/Abdominal Exam GI & Abdominal Exam: Soft. absent: Distended - Exam Exam: absent: Bladder Distension - Extremities Exam Additional comments: no leg edema; - Neurological Exam Neurological Exam: Alert, Awake - Psychiatric Exam Psychiatric exam: absent: Agitated - Skin Skin Exam: Warm. absent: Cyanosis Assessment and Plan (1) Hyponatremia Assessment & Plan: Rapid overcorrection of hyponatremia consistent with correction of volume depletion (and shutting off ADH with ensuing free water diuresis); giving desmopressin 2 mcg IV today and 2L D5W over 4 hrs to reverse overcorrection; goal is for overall serum Na increase of 12 by this evening (ie. 107 -> 119); Status: Acute (2) Hypokalemia Assessment & Plan: Continue to replenish aggressively via IV and PO route; Status: Acute
[2019-03-02 18:32] LABS: BLOOD UREA NITROGEN 5 mg/dL (9-20); CALCIUM 7.5 mg/dl (8.6-10.4); GFR NON-AFRICAN AMERICAN > 60
[2019-03-03 00:40] LABS: BLOOD UREA NITROGEN 4 mg/dL (9-20); CALCIUM 7.5 mg/dl (8.6-10.4); GFR NON-AFRICAN AMERICAN > 60
[2019-03-03 03:42] LABS: ABG ALLEN TEST POS; ARTERIAL BLOOD GAS HCO3 21.4 mmol/L (21-28); ARTERIAL BLOOD GAS PCO2 32 mm/Hg (35-45); ARTERIAL BLOOD GAS PH 7.39 (7.35-7.45); ARTERIAL BLOOD GAS PO2 198 mm/Hg (80-100); ARTERIAL BLOOD GAS TCO2 20.4 mmol/L (22-28)
[2019-03-03] MEDS: MethylPREDNISolone 40 mg Vial IVP SCH ×3 (03:45→18:53)
[2019-03-03] MEDS: Albuterol-Ipratrop 3 mg / 0.5 (3 ml) UD INH SCH ×5 (03:47→19:29)
[2019-03-03] MEDS: Piperacill/Tazo 3.375gm in Dex 3.375 GM/50 ML BAG IVPB SCH ×4 (04:47→21:30)
[2019-03-03 06:17] LABS: BASO % 0.4 % (0.0-2.0); EOS % 0.2 % (0.0-4.0); HEMOGLOBIN 10.3 g/dL (12.0-18.0); LYMPH # 0.3 K/uL (1.0-4.3); MEAN CELL VOLUME 91.9 fL (80.0-94.0); MEAN CORPUSCULAR HEMOGLOBIN 33.2 pg (27.0-31.0); MEAN CORPUSCULAR HGB CONC 36.1 g/dL (33.0-37.0); MEAN PLATELET VOLUME 7.7 fL (7.2-11.7); MONO # 0.2 K/uL (0.0-0.8); MONO % 2.7 % (0.0-10.0); NEUT # 6.4 K/uL (1.8-7.0); NEUT % 92.7 % (50.0-75.0); PLATELET COUNT 153 K/uL (130-400); RED CELL DISTRIBUTION WIDTH 15.4 % (11.5-14.5); WHITE BLOOD COUNT 6.9 K/uL (4.8-10.8)
[2019-03-03 06:32] LABS: B-TYPE NATRIURETIC PEPTIDE 1790 pg/mL (0-900)
--- NOTE | 2019-03-03 06:35 | HP ---
HISTORY OF PRESENT ILLNESS: A 53-year-old male who has a complaint of altered mental status, weakness with respiratory failure. The patient seen in the ER, intubated. The patient found to have severe hyponatremia, sodium 108. The patient is sedated and ventilated. PHYSICAL EXAMINATION: VITAL SIGNS: Temperature of 98, pulse 90, blood pressure 120/70. HEENT: Within normal limits. NECK: Supple. CHEST: Symmetrical. HEART: Regular. ABDOMEN: Distended. EXTREMITIES: No edema. IMPRESSION AND PLAN: The patient suffers from respiratory failure, , hyponatremia. Patient bed rest, evaluation, . Deepa Sorenson MD
[2019-03-03] MEDS ORDERED: Potassium Phosphate 15 MMOLE in Dextrose 5% In Water 250 ML IVPB ONE (06:37)
[2019-03-03 06:45] LABS: ALB/GLOB RATIO 1.2 (1.0-2.1); ALBUMIN 2.9 g/dL (3.5-5.0); ALT/SGPT 35 U/L (21-72); AST/SGOT 54 U/L (17-59); BLOOD UREA NITROGEN 4 mg/dL (9-20); CALCIUM 7.7 mg/dl (8.6-10.4); GFR NON-AFRICAN AMERICAN > 60
[2019-03-03 08:19] LABS: BANDS 2 % (0-2); LYMPHOCYTE 4 % (20-40); MONOCYTE 2 % (0-10); NEUTROPHIL 92 % (50-75); PLATELET ESTIMATE NORMAL (NORMAL); TOTAL CELLS COUNTED 100
[2019-03-03 08:20] LABS: ANISOCYTOSIS SLIGHT
[2019-03-03 08:21] LABS: BURR CELLS MODERATE; POIKILOCYTOSIS SLIGHT
--- NOTE | 2019-03-03 08:54 | RAD ---
Date of service: 03/03/2019 PROCEDURE: CHEST RADIOGRAPH, 1 VIEW HISTORY: intubated COMPARISON: 03/02/2019 FINDINGS: Right IJV line terminates in the SVC. LUNGS: The lungs are well inflated. There is moderate pulmonary venous congestion. There is bibasilar atelectasis. No lobar pneumonia. PLEURA: No pneumothorax or pleural effusion. CARDIOVASCULAR: The heart is normal in size. No aortic atherosclerotic calcifications present. OSSEOUS STRUCTURES: Within normal limits for the patient's age. VISUALIZED UPPER ABDOMEN: Normal. OTHER FINDINGS: None. IMPRESSION: Moderate pulmonary venous congestion. No active pulmonary disease. Right IJV line terminates in the SVC.
[2019-03-03 12:42] LABS: BLOOD UREA NITROGEN 3 mg/dL (9-20); CALCIUM 8.1 mg/dl (8.6-10.4); GFR NON-AFRICAN AMERICAN > 60
--- NOTE | 2019-03-03 13:15 | CP.CCUPN ---
<Rocky Mena - Last Filed: 03/03/19 13:15> CCU Subjective - Physician Review Subjective (Free Text): 03/03/19 13:04 PGY-1 Critical Care Progress Note for Dr. Morfin Patient seen and examined at bedside this AM. 53 yo male with extensive past medical history presented with change in mental status and found to have hyponatremia and pneumonia. Patient intubated in the ICU for worsening shortness of breath and copious secretions Patient self-extubated overnight despite sedation, mittens OGT removed, airways aggressively suctioned saturating well on NC 3L this am, continue to monitor off sedation swallow eval performed, continues to cough up secretions suctioning prn, NPO for now, ice chips/thin sips of water ok Na 119, fluid restriction follow further Nephro recs IV antibiotics DVT and stress ulcer ppx CCU Objective - Vital Signs / Intake & Output Vital Signs (Last 4 hours): Vital Signs Temp Pulse Resp BP Pulse Ox 03/03/19 12:01 77 24 105/61 03/03/19 12:00 98.3 F 81 18 98 03/03/19 11:30 70 11 L 116/62 100 03/03/19 11:00 76 21 114/57 L 03/03/19 10:30 78 20 112/57 L 100 03/03/19 10:00 86 23 105/64 92 L 03/03/19 09:30 77 19 114/56 L 100 Intake and Output (Last 8hrs): Intake & Output 03/02/19 03/03/19 03/03/19 22:59 06:59 14:59 Intake Total 1702.4 856.5 462.5 Output Total 1160 800 300 Balance 542.4 56.5 162.5 Weight 63.5 kg Intake: IV 189 Intake, IV Amount 1333.4 856.5 462.5 Right Internal Jugular 900 800 462.5 Right Medial Port 350 Internal Jugular Right Proximal Port 83.4 56.5 Internal Jugular Oral 0 Tube Feeding 180 Output: Urine 1160 800 300 Condom 1160 Urine, Voided 800 300 Emesis 0 0 Other: # Bowel Movements 0 0 - Medications Active Medications: Active Medications Generic Name Dose Route Start Last Admin Trade Name Freq PRN Reason Stop Dose Admin Albuterol/Ipratropium 3 ml 03/03/19 04:00 03/03/19 08:02 Duoneb 3 Mg/0.5 Mg (3 Ml) Ud INH 3 ml RQ4 MAYANK Administration Heparin Sodium (Porcine) 5,000 units 03/01/19 22:00 03/03/19 05:00 Heparin SC Not Given Q8 MAYANK Piperacillin Sod/Tazobactam Sod 3.375 gm in 50 mls @ 100 mls/hr 03/01/19 16:00 03/03/19 09:32 Zosyn 3.375 Gm Iv Premix IVPB 100 mls/hr Q6H MAYANK Administration Protocol Vancomycin HCl 1 gm/ Sodium 250 mls @ 166.7 mls/hr 03/01/19 17:00 03/02/19 16:17 Chloride IVPB 166.7 mls/hr Q24H MAYANK Administration Protocol Levetiracetam 500 mg/ Dextrose 105 mls @ 420 mls/hr 03/01/19 15:15 03/03/19 03:45 IVPB 420 mls/hr Q12H MAYANK Administration Dexmedetomidine HCl 200 mcg/ 50 mls @ 3.15 mls/hr 03/03/19 07:03 Sodium Chloride IV TITR PRN Agitation Protocol 0.2 MCG/KG/HR Methylprednisolone 40 mg 03/03/19 03:45 03/03/19 11:10 Solu-Medrol IVP 40 mg Q8H MAYANK Administration Pantoprazole Sodium 40 mg 03/01/19 22:00 03/03/19 09:32 Protonix Inj IVP 40 mg Q12 MAYANK Administration - Patient Studies Lab Studies: Microbiology Studies 03/01/19 16:20 Gram Stain - Final Trachasp Sputum Culture - Final NORMAL ORAL TOY 03/01/19 10:58 Urine Culture - Final Urine Random 10-50,000 CFU/ML. MULTIPLE SPECIES. PROBABLE CONTAMINATION. 03/01/19 13:48 Blood Culture - Preliminary Blood NO GROWTH AFTER 24 HOURS 03/01/19 13:48 Blood Culture - Preliminary Blood NO GROWTH AFTER 24 HOURS Lab Studies 03/03/19 03/03/19 03/03/19 Range/Units 12:17 06:02 06:02 WBC (4.8-10.8) K/uL RBC (4.40-5.90) Mil/uL Hgb (12.0-18.0) g/dL Hct (35.0-51.0) % MCV (80.0-94.0) fL MCH (27.0-31.0) pg MCHC (33.0-37.0) g/dL RDW (11.5-14.5) % Plt Count (130-400) K/uL MPV (7.2-11.7) fL Neut % (Auto) (50.0-75.0) % Lymph % (Auto) (20.0-40.0) % [place] % (Auto) (0.0-10.0) % Eos % (Auto) (0.0-4.0) % Baso % (Auto) (0.0-2.0) % Neut # (Auto) (1.8-7.0) K/uL Lymph # (Auto) (1.0-4.3) K/uL [place] # (Auto) (0.0-0.8) K/uL Eos # (Auto) (0.0-0.7) K/uL Baso # (Auto) (0.0-0.2) K/uL Neutrophils % (Manual) (50-75) % Band Neutrophils % (0-2) % Lymphocytes % (Manual) (20-40) % Monocytes % (Manual) (0-10) % Platelet Estimate (NORMAL) Poikilocytosis (manual Basophilic Stippling Anisocytosis (manual) [place] Cells Puncture Site pCO2 (35-45) mm/Hg pO2 (80-100) mm/Hg HCO3 (21-28) mmol/L ABG pH (7.35-7.45) ABG Total CO2 (22-28) mmol/L ABG O2 Saturation (95-98) % ABG Base Excess (-2.0-3.0) mmol/L Bob Test ABG Potassium (3.6-5.2) mmol/L A-a O2 Difference mm/Hg Respiratory Index Glucose (75-110) mg/dl Lactate (0.7-2.1) mmol/L Liter Flow FiO2 % Crit Value Called To Crit Value Called By Crit Value Read Back Blood Gas Notified Time Sodium 119 L* 120 L* (132-148) mmol/L Potassium 4.0 3.7 (3.6-5.2) mmol/L Chloride 89 L 89 L (98-107) mmol/L Carbon Dioxide 20 L 21 L (22-30) mmol/L Anion Gap 15 13 (10-20) BUN 3 L 4 L (9-20) mg/dL Creatinine 0.6 L 0.6 L (0.8-1.5) mg/dL Est GFR ( Amer) > 60 > 60 Est GFR (Non-Af Amer) > 60 > 60 POC Glucose (mg/dL) (65-110) mg/dL Random Glucose 174 H D 137 H D (75-110) mg/dL Calcium 8.1 L 7.7 L (8.6-10.4) mg/dl Phosphorus 2.0 L (2.5-4.5) mg/dL Magnesium 1.7 (1.6-2.3) mg/dL Total Bilirubin 0.5 (0.2-1.3) mg/dL AST 54 (17-59) U/L ALT 35 (21-72) U/L Alkaline Phosphatase 98 (38-126) U/L NT-Pro-B Natriuret Pep 1790 H (0-900) pg/mL Total Protein 5.3 L (6.3-8.3) g/dL Albumin 2.9 L (3.5-5.0) g/dL Globulin 2.4 (2.2-3.9) gm/dL Albumin/Globulin Ratio 1.2 (1.0-2.1) Arterial Blood Potassium (3.6-5.2) mmol/L Random Vancomycin 10.2 ug/mL 03/03/19 03/03/19 03/03/19 Range/Units 06:02 05:46 03:38 WBC 6.9 (4.8-10.8) K/uL RBC 3.10 L (4.40-5.90) Mil/uL Hgb 10.3 L (12.0-18.0) g/dL Hct 28.5 L (35.0-51.0) % MCV 91.9 (80.0-94.0) fL MCH 33.2 H (27.0-31.0) pg MCHC 36.1 (33.0-37.0) g/dL RDW 15.4 H (11.5-14.5) % Plt Count 153 (130-400) K/uL MPV 7.7 (7.2-11.7) fL Neut % (Auto) 92.7 H (50.0-75.0) % Lymph % (Auto) 4.0 L (20.0-40.0) % [place] % (Auto) 2.7 (0.0-10.0) % Eos % (Auto) 0.2 (0.0-4.0) % Baso % (Auto) 0.4 (0.0-2.0) % Neut # (Auto) 6.4 (1.8-7.0) K/uL Lymph # (Auto) 0.3 L (1.0-4.3) K/uL [place] # (Auto) 0.2 (0.0-0.8) K/uL Eos # (Auto) 0.0 (0.0-0.7) K/uL Baso # (Auto) 0.0 (0.0-0.2) K/uL Neutrophils % (Manual) 92 H (50-75) % Band Neutrophils % 2 (0-2) % Lymphocytes % (Manual) 4 L (20-40) % Monocytes % (Manual) 2 (0-10) % Platelet Estimate Normal (NORMAL) Poikilocytosis (manual Slight Basophilic Stippling Slight Anisocytosis (manual) Slight [place] Cells Moderate Puncture Site Rr pCO2 32 L (35-45) mm/Hg pO2 198 H (80-100) mm/Hg HCO3 21.4 (21-28) mmol/L ABG pH 7.39 (7.35-7.45) ABG Total CO2 20.4 L (22-28) mmol/L ABG O2 Saturation 99.0 H (95-98) % ABG Base Excess -4.6 L (-2.0-3.0) mmol/L Bob Test Pos ABG Potassium 3.3 L (3.6-5.2) mmol/L A-a O2 Difference 475.0 mm/Hg Respiratory Index 2.4 Glucose 125 H (75-110) mg/dl Lactate 0.4 L (0.7-2.1) mmol/L Liter Flow 15.0 FiO2 100.0 % Crit Value Called To June rn Crit Value Called By Alejandra tow truck dispatcher Crit Value Read Back Y Blood Gas Notified Time 342 Sodium 117.0 L* (132-148) mmol/L Potassium (3.6-5.2) mmol/L Chloride 92.0 L (98-107) mmol/L Carbon Dioxide (22-30) mmol/L Anion Gap (10-20) BUN (9-20) mg/dL Creatinine (0.8-1.5) mg/dL Est GFR ( Amer) Est GFR (Non-Af Amer) POC Glucose (mg/dL) 188 H (65-110) mg/dL Random Glucose (75-110) mg/dL Calcium (8.6-10.4) mg/dl Phosphorus (2.5-4.5) mg/dL Magnesium (1.6-2.3) mg/dL Total Bilirubin (0.2-1.3) mg/dL AST (17-59) U/L ALT (21-72) U/L Alkaline Phosphatase (38-126) U/L NT-Pro-B Natriuret Pep (0-900) pg/mL Total Protein (6.3-8.3) g/dL Albumin (3.5-5.0) g/dL Globulin (2.2-3.9) gm/dL Albumin/Globulin Ratio (1.0-2.1) Arterial Blood Potassium 3.3 L (3.6-5.2) mmol/L Random Vancomycin ug/mL 03/03/19 03/02/19 03/02/19 Range/Units 00:13 23:54 19:42 WBC (4.8-10.8) K/uL RBC (4.40-5.90) Mil/uL Hgb (12.0-18.0) g/dL Hct (35.0-51.0) % MCV (80.0-94.0) fL MCH (27.0-31.0) pg MCHC (33.0-37.0) g/dL RDW (11.5-14.5) % Plt Count (130-400) K/uL MPV (7.2-11.7) fL Neut % (Auto) (50.0-75.0) % Lymph % (Auto) (20.0-40.0) % [place] % (Auto) (0.0-10.0) % Eos % (Auto) (0.0-4.0) % Baso % (Auto) (0.0-2.0) % Neut # (Auto) (1.8-7.0) K/uL Lymph # (Auto) (1.0-4.3) K/uL [place] # (Auto) (0.0-0.8) K/uL Eos # (Auto) (0.0-0.7) K/uL Baso # (Auto) (0.0-0.2) K/uL Neutrophils % (Manual) (50-75) % Band Neutrophils % (0-2) % Lymphocytes % (Manual) (20-40) % Monocytes % (Manual) (0-10) % Platelet Estimate (NORMAL) Poikilocytosis (manual Basophilic Stippling Anisocytosis (manual) Tra Cells Puncture Site pCO2 (35-45) mm/Hg pO2 (80-100) mm/Hg HCO3 (21-28) mmol/L ABG pH (7.35-7.45) ABG Total CO2 (22-28) mmol/L ABG O2 Saturation (95-98) % ABG Base Excess (-2.0-3.0) mmol/L Bob Test ABG Potassium (3.6-5.2) mmol/L A-a O2 Difference mm/Hg Respiratory Index Glucose (75-110) mg/dl Lactate (0.7-2.1) mmol/L Liter Flow FiO2 % Crit Value Called To Crit Value Called By Crit Value Read Back Blood Gas Notified Time Sodium 120 L* (132-148) mmol/L Potassium 3.6 (3.6-5.2) mmol/L Chloride 90 L (98-107) mmol/L Carbon Dioxide 23 (22-30) mmol/L Anion Gap 10 (10-20) BUN 4 L (9-20) mg/dL Creatinine 0.7 L (0.8-1.5) mg/dL Est GFR ( Amer) > 60 Est GFR (Non-Af Amer) > 60 POC Glucose (mg/dL) 117 H (65-110) mg/dL Random Glucose 114 H D (75-110) mg/dL Calcium 7.5 L (8.6-10.4) mg/dl Phosphorus 2.2 L (2.5-4.5) mg/dL Magnesium 2.1 (1.6-2.3) mg/dL Total Bilirubin (0.2-1.3) mg/dL AST (17-59) U/L ALT (21-72) U/L Alkaline Phosphatase (38-126) U/L NT-Pro-B Natriuret Pep (0-900) pg/mL Total Protein (6.3-8.3) g/dL Albumin (3.5-5.0) g/dL Globulin (2.2-3.9) gm/dL Albumin/Globulin Ratio (1.0-2.1) Arterial Blood Potassium (3.6-5.2) mmol/L Random Vancomycin ug/mL 03/02/19 03/02/19 03/02/19 Range/Units 18:13 17:58 12:07 WBC (4.8-10.8) K/uL RBC (4.40-5.90) Mil/uL Hgb (12.0-18.0) g/dL Hct (35.0-51.0) % MCV (80.0-94.0) fL MCH (27.0-31.0) pg MCHC (33.0-37.0) g/dL RDW (11.5-14.5) % Plt Count (130-400) K/uL MPV (7.2-11.7) fL Neut % (Auto) (50.0-75.0) % Lymph % (Auto) (20.0-40.0) % [place] % (Auto) (0.0-10.0) % Eos % (Auto) (0.0-4.0) % Baso % (Auto) (0.0-2.0) % Neut # (Auto) (1.8-7.0) K/uL Lymph # (Auto) (1.0-4.3) K/uL [place] # (Auto) (0.0-0.8) K/uL Eos # (Auto) (0.0-0.7) K/uL Baso # (Auto) (0.0-0.2) K/uL Neutrophils % (Manual) (50-75) % Band Neutrophils % (0-2) % Lymphocytes % (Manual) (20-40) % Monocytes % (Manual) (0-10) % Platelet Estimate (NORMAL) Poikilocytosis (manual Basophilic Stippling Anisocytosis (manual) [place] Cells Puncture Site pCO2 (35-45) mm/Hg pO2 (80-100) mm/Hg HCO3 (21-28) mmol/L ABG pH (7.35-7.45) ABG Total CO2 (22-28) mmol/L ABG O2 Saturation (95-98) % ABG Base Excess (-2.0-3.0) mmol/L Bob Test ABG Potassium (3.6-5.2) mmol/L A-a O2 Difference mm/Hg Respiratory Index Glucose (75-110) mg/dl Lactate (0.7-2.1) mmol/L Liter Flow FiO2 % Crit Value Called To Crit Value Called By Crit Value Read Back Blood Gas Notified Time Sodium 120 L* (132-148) mmol/L Potassium 4.4 (3.6-5.2) mmol/L Chloride 93 L (98-107) mmol/L Carbon Dioxide 21 L (22-30) mmol/L Anion Gap 10 (10-20) BUN 5 L (9-20) mg/dL Creatinine 0.7 L (0.8-1.5) mg/dL Est GFR ( Amer) > 60 Est GFR (Non-Af Amer) > 60 POC Glucose (mg/dL) 82 114 H (65-110) mg/dL Random Glucose 75 D (75-110) mg/dL Calcium 7.5 L (8.6-10.4) mg/dl Phosphorus (2.5-4.5) mg/dL Magnesium (1.6-2.3) mg/dL Total Bilirubin (0.2-1.3) mg/dL AST (17-59) U/L ALT (21-72) U/L Alkaline Phosphatase (38-126) U/L NT-Pro-B Natriuret Pep (0-900) pg/mL Total Protein (6.3-8.3) g/dL Albumin (3.5-5.0) g/dL Globulin (2.2-3.9) gm/dL Albumin/Globulin Ratio (1.0-2.1) Arterial Blood Potassium (3.6-5.2) mmol/L Random Vancomycin ug/mL 03/02/19 03/01/19 03/01/19 Range/Units 06:44 23:19 17:48 WBC (4.8-10.8) K/uL RBC (4.40-5.90) Mil/uL Hgb (12.0-18.0) g/dL Hct (35.0-51.0) % MCV (80.0-94.0) fL MCH (27.0-31.0) pg MCHC (33.0-37.0) g/dL RDW (11.5-14.5) % Plt Count (130-400) K/uL MPV (7.2-11.7) fL Neut % (Auto) (50.0-75.0) % Lymph % (Auto) (20.0-40.0) % [place] % (Auto) (0.0-10.0) % Eos % (Auto) (0.0-4.0) % Baso % (Auto) (0.0-2.0) % Neut # (Auto) (1.8-7.0) K/uL Lymph # (Auto) (1.0-4.3) K/uL [place] # (Auto) (0.0-0.8) K/uL Eos # (Auto) (0.0-0.7) K/uL Baso # (Auto) (0.0-0.2) K/uL Neutrophils % (Manual) (50-75) % Band Neutrophils % (0-2) % Lymphocytes % (Manual) (20-40) % Monocytes % (Manual) (0-10) % Platelet Estimate (NORMAL) Poikilocytosis (manual Basophilic Stippling Anisocytosis (manual) Tra Cells Puncture Site pCO2 (35-45) mm/Hg pO2 (80-100) mm/Hg HCO3 (21-28) mmol/L ABG pH (7.35-7.45) ABG Total CO2 (22-28) mmol/L ABG O2 Saturation (95-98) % ABG Base Excess (-2.0-3.0) mmol/L Bob Test ABG Potassium (3.6-5.2) mmol/L A-a O2 Difference mm/Hg Respiratory Index Glucose (75-110) mg/dl Lactate (0.7-2.1) mmol/L Liter Flow FiO2 % Crit Value Called To Crit Value Called By Crit Value Read Back Blood Gas Notified Time Sodium (132-148) mmol/L Potassium (3.6-5.2) mmol/L Chloride (98-107) mmol/L Carbon Dioxide (22-30) mmol/L Anion Gap (10-20) BUN (9-20) mg/dL Creatinine (0.8-1.5) mg/dL Est GFR ( Amer) Est GFR (Non-Af Amer) POC Glucose (mg/dL) 91 78 165 H (65-110) mg/dL Random Glucose (75-110) mg/dL Calcium (8.6-10.4) mg/dl Phosphorus (2.5-4.5) mg/dL Magnesium (1.6-2.3) mg/dL Total Bilirubin (0.2-1.3) mg/dL AST (17-59) U/L ALT (21-72) U/L Alkaline Phosphatase (38-126) U/L NT-Pro-B Natriuret Pep (0-900) pg/mL Total Protein (6.3-8.3) g/dL Albumin (3.5-5.0) g/dL Globulin (2.2-3.9) gm/dL Albumin/Globulin Ratio (1.0-2.1) Arterial Blood Potassium (3.6-5.2) mmol/L Random Vancomycin ug/mL Laboratory Results - last 24 hr 03/01/19 03/01/19 03/02/19 17:48 23:19 06:44 WBC RBC Hgb Hct MCV MCH MCHC RDW Plt Count MPV Neut % (Auto) Lymph % (Auto) [place] % (Auto) Eos % (Auto) Baso % (Auto) Neut # (Auto) Lymph # (Auto) [place] # (Auto) Eos # (Auto) Baso # (Auto) Neutrophils % (Manual) Band Neutrophils % Lymphocytes % (Manual) Monocytes % (Manual) Platelet Estimate Poikilocytosis (manual Basophilic Stippling Anisocytosis (manual) Tra Cells Puncture Site pCO2 pO2 HCO3 ABG pH ABG Total CO2 ABG O2 Saturation ABG Base Excess Bob Test ABG Potassium A-a O2 Difference Respiratory Index Glucose Lactate Liter Flow FiO2 Crit Value Called To Crit Value Called By Crit Value Read Back Blood Gas Notified Time Sodium Potassium Chloride Carbon Dioxide Anion Gap BUN Creatinine Est GFR ( Amer) Est GFR (Non-Af Amer) POC Glucose (mg/dL) 165 H 78 91 Random Glucose Calcium Phosphorus Magnesium Total Bilirubin AST ALT Alkaline Phosphatase NT-Pro-B Natriuret Pep Total Protein Albumin Globulin Albumin/Globulin Ratio Arterial Blood Potassium Random Vancomycin 03/02/19 03/02/19 03/02/19 12:07 17:58 18:13 WBC RBC Hgb Hct MCV MCH MCHC RDW Plt Count MPV Neut % (Auto) Lymph % (Auto) [place] % (Auto) Eos % (Auto) Baso % (Auto) Neut # (Auto) Lymph # (Auto) [place] # (Auto) Eos # (Auto) Baso # (Auto) Neutrophils % (Manual) Band Neutrophils % Lymphocytes % (Manual) Monocytes % (Manual) Platelet Estimate Poikilocytosis (manual Basophilic Stippling Anisocytosis (manual) Tra Cells Puncture Site pCO2 pO2 HCO3 ABG pH ABG Total CO2 ABG O2 Saturation ABG Base Excess Bob Test ABG Potassium A-a O2 Difference Respiratory Index Glucose Lactate Liter Flow FiO2 Crit Value Called To Crit Value Called By Crit Value Read Back Blood Gas Notified Time Sodium 120 L* Potassium 4.4 Chloride 93 L Carbon Dioxide 21 L Anion Gap 10 BUN 5 L Creatinine 0.7 L Est GFR ( Amer) > 60 Est GFR (Non-Af Amer) > 60 POC Glucose (mg/dL) 114 H 82 Random Glucose 75 D Calcium 7.5 L Phosphorus Magnesium Total Bilirubin AST ALT Alkaline Phosphatase NT-Pro-B Natriuret Pep Total Protein Albumin Globulin Albumin/Globulin Ratio Arterial Blood Potassium Random Vancomycin 03/02/19 03/02/19 03/03/19 19:42 23:54 00:13 WBC RBC Hgb Hct MCV MCH MCHC RDW Plt Count MPV Neut % (Auto) Lymph % (Auto) [place] % (Auto) Eos % (Auto) Baso % (Auto) Neut # (Auto) Lymph # (Auto) [place] # (Auto) Eos # (Auto) Baso # (Auto) Neutrophils % (Manual) Band Neutrophils % Lymphocytes % (Manual) Monocytes % (Manual) Platelet Estimate Poikilocytosis (manual Basophilic Stippling Anisocytosis (manual) [place] Cells Puncture Site pCO2 pO2 HCO3 ABG pH ABG Total CO2 ABG O2 Saturation ABG Base Excess Bob Test ABG Potassium A-a O2 Difference Respiratory Index Glucose Lactate Liter Flow FiO2 Crit Value Called To Crit Value Called By Crit Value Read Back Blood Gas Notified Time Sodium 120 L* Potassium 3.6 Chloride 90 L Carbon Dioxide 23 Anion Gap 10 BUN 4 L Creatinine 0.7 L Est GFR ( Amer) > 60 Est GFR (Non-Af Amer) > 60 POC Glucose (mg/dL) 117 H Random Glucose 114 H D Calcium 7.5 L Phosphorus 2.2 L Magnesium 2.1 Total Bilirubin AST ALT Alkaline Phosphatase NT-Pro-B Natriuret Pep Total Protein Albumin Globulin Albumin/Globulin Ratio Arterial Blood Potassium Random Vancomycin 03/03/19 03/03/19 03/03/19 03:38 05:46 06:02 WBC 6.9 RBC 3.10 L Hgb 10.3 L Hct 28.5 L MCV 91.9 MCH 33.2 H MCHC 36.1 RDW 15.4 H Plt Count 153 MPV 7.7 Neut % (Auto) 92.7 H Lymph % (Auto) 4.0 L [place] % (Auto) 2.7 Eos % (Auto) 0.2 Baso % (Auto) 0.4 Neut # (Auto) 6.4 Lymph # (Auto) 0.3 L [place] # (Auto) 0.2 Eos # (Auto) 0.0 Baso # (Auto) 0.0 Neutrophils % (Manual) 92 H Band Neutrophils % 2 Lymphocytes % (Manual) 4 L Monocytes % (Manual) 2 Platelet Estimate Normal Poikilocytosis (manual Slight Basophilic Stippling Slight Anisocytosis (manual) Slight Tra Cells Moderate Puncture Site Rr pCO2 32 L pO2 198 H HCO3 21.4 ABG pH 7.39 ABG Total CO2 20.4 L ABG O2 Saturation 99.0 H ABG Base Excess -4.6 L Bob Test Pos ABG Potassium 3.3 L A-a O2 Difference 475.0 Respiratory Index 2.4 Glucose 125 H Lactate 0.4 L Liter Flow 15.0 FiO2 100.0 Crit Value Called To June soria Crit Value Called By Alejandra tow truck dispatcher Crit Value Read Back Y Blood Gas Notified Time 342 Sodium 117.0 L* Potassium Chloride 92.0 L Carbon Dioxide Anion Gap BUN Creatinine Est GFR ( Amer) Est GFR (Non-Af Amer) POC Glucose (mg/dL) 188 H Random Glucose Calcium Phosphorus Magnesium Total Bilirubin AST ALT Alkaline Phosphatase NT-Pro-B Natriuret Pep Total Protein Albumin Globulin Albumin/Globulin Ratio Arterial Blood Potassium 3.3 L Random Vancomycin 03/03/19 03/03/19 03/03/19 06:02 06:02 12:17 WBC RBC Hgb Hct MCV MCH MCHC RDW Plt Count MPV Neut % (Auto) Lymph % (Auto) [place] % (Auto) Eos % (Auto) Baso % (Auto) Neut # (Auto) Lymph # (Auto) [place] # (Auto) Eos # (Auto) Baso # (Auto) Neutrophils % (Manual) Band Neutrophils % Lymphocytes % (Manual) Monocytes % (Manual) Platelet Estimate Poikilocytosis (manual Basophilic Stippling Anisocytosis (manual) [place] Cells Puncture Site pCO2 pO2 HCO3 ABG pH ABG Total CO2 ABG O2 Saturation ABG Base Excess Bob Test ABG Potassium A-a O2 Difference Respiratory Index Glucose Lactate Liter Flow FiO2 Crit Value Called To Crit Value Called By Crit Value Read Back Blood Gas Notified Time Sodium 120 L* 119 L* Potassium 3.7 4.0 Chloride 89 L 89 L Carbon Dioxide 21 L 20 L Anion Gap 13 15 BUN 4 L 3 L Creatinine 0.6 L 0.6 L Est GFR ( Amer) > 60 > 60 Est GFR (Non-Af Amer) > 60 > 60 POC Glucose (mg/dL) Random Glucose 137 H D 174 H D Calcium 7.7 L 8.1 L Phosphorus 2.0 L Magnesium 1.7 Total Bilirubin 0.5 AST 54 ALT 35 Alkaline Phosphatase 98 NT-Pro-B Natriuret Pep 1790 H Total Protein 5.3 L Albumin 2.9 L Globulin 2.4 Albumin/Globulin Ratio 1.2 Arterial Blood Potassium Random Vancomycin 10.2 Radiology Impressions: Radiology Impressions Chest X-Ray 03/03/19 07:00 IMPRESSION: Moderate pulmonary venous congestion. No active pulmonary disease. Right IJV line terminates in the SVC. Fingerstick Blood Sugar Results: 208 Review of Systems - Review of Systems All systems: reviewed and no additional remarkable complaints except Review of Systems: as per HPI Critical Care Progress Note - Nutrition Nutrition: Nutrition Category Date Time Status NPO Diet [DIET] Diets 03/01/19 Dinner Active Assessment/Plan - Assessment and Plan (Free Text) Assessment: 53-year-old male with extensive past medical history presented with change in mental status and found to have hyponatremia and pneumonia. Patient intubated in the ICU for worsening shortness of breath and copious secretions. Self- extubated overnight, currently saturating well on NC 3L. Plan: Neuro -self extubated overnight -saturating well on 3L NC, continue to monitor -off sedation -alcohol induced seizure disorder -keppra 500 mg q12 IVPB Pulm -multifocal pneumonia on CXR, worse in RLL -blood, sputum cultures negative thus far -vanc/zosyn for empiric coverage CV -rate controlled -home cardizem held Heme -no acute issues Endo -no acute issues GI -protonix 40 mg IVP q12 Renal -hyponatremic, Na 119 -Nephrology (Dr. Shafer) on case -fluid restriction -f/u urine, serum lytes ID -PNA -vanc/zosyn PPx, Diet, Disposition -DVT: scds, heparin -GI: protonix 40 mg IVP q12 -Diet: tube feeds Case discussed with Dr. Navjot Mena DO, PGY-1 <Sandeep Morfin S - Last Filed: 03/03/19 16:26> CCU Subjective - Physician Review Critical Care Time Spent (in minutes): 45 CCU Objective - Vital Signs / Intake & Output Vital Signs (Last 4 hours): Vital Signs Temp Pulse Resp BP Pulse Ox 03/03/19 16:00 98.3 F 81 19 117/61 100 03/03/19 15:30 77 18 116/56 L 100 03/03/19 15:00 84 20 116/62 97 03/03/19 14:31 85 20 115/64 98 03/03/19 14:30 86 20 100 03/03/19 14:00 84 18 107/61 100 03/03/19 13:30 75 17 113/59 L 100 03/03/19 13:00 71 14 117/62 03/03/19 12:30 76 21 114/63 100 Intake and Output (Last 8hrs): Intake & Output 03/03/19 03/03/19 03/03/19 06:59 14:59 22:59 Intake Total 856.5 462.5 267 Output Total 800 300 0 Balance 56.5 162.5 267 Weight 139 lb 15.896 oz Intake: Intake, IV Amount 856.5 462.5 267 Right Internal Jugular 800 462.5 267 Right Proximal Port 56.5 Internal Jugular Oral 0 0 Output: Urine 800 300 0 Urine, Voided 800 300 0 Emesis 0 0 Other: # Bowel Movements 0 0 - Medications Active Medications: Active Medications Generic Name Dose Route Start Last Admin Trade Name Freq PRN Reason Stop Dose Admin Albuterol/Ipratropium 3 ml 03/03/19 04:00 03/03/19 15:39 Duoneb 3 Mg/0.5 Mg (3 Ml) Ud INH Not Given RQ4 MAYANK Desmopressin Acetate 2 mcg 03/03/19 17:00 Ddavp SC 03/03/19 17:01 ONCE ONE Heparin Sodium (Porcine) 5,000 units 03/01/19 22:00 03/03/19 14:32 Heparin SC 5,000 units Q8 MAYANK Administration Piperacillin Sod/Tazobactam Sod 3.375 gm in 50 mls @ 100 mls/hr 03/01/19 16:00 03/03/19 15:21 Zosyn 3.375 Gm Iv Premix IVPB 100 mls/hr Q6H MAYANK Administration Protocol Vancomycin HCl 1 gm/ Sodium 250 mls @ 166.7 mls/hr 03/01/19 17:00 03/03/19 16:04 Chloride IVPB 166.7 mls/hr Q24H MAYANK Administration Protocol Levetiracetam 500 mg/ Dextrose 105 mls @ 420 mls/hr 03/01/19 15:15 03/03/19 14:33 IVPB 420 mls/hr Q12H MAYANK Administration Dexmedetomidine HCl 200 mcg/ 50 mls @ 3.15 mls/hr 03/03/19 07:03 Sodium Chloride IV TITR PRN Agitation Protocol 0.2 MCG/KG/HR Sodium Chloride 500 mls @ 25 mls/hr 03/03/19 17:00 Hypertonic Saline 3% IV 03/04/19 12:59 .Q20H ONE Methylprednisolone 40 mg 03/03/19 03:45 03/03/19 11:10 Solu-Medrol IVP 40 mg Q8H MAYANK Administration Pantoprazole Sodium 40 mg 03/01/19 22:00 03/03/19 09:32 Protonix Inj IVP 40 mg Q12 MAYANK Administration - Patient Studies Lab Studies: Microbiology Studies 03/01/19 13:48 Blood Culture - Preliminary Blood NO GROWTH AFTER 48 HOURS 03/01/19 13:48 Blood Culture - Preliminary Blood NO GROWTH AFTER 48 HOURS 03/01/19 16:53 MRSA Culture (Admit) - Final [place] MRSA NOT DETECTED 03/01/19 16:20 Gram Stain - Final Trachasp Sputum Culture - Final NORMAL ORAL TOY 03/01/19 10:58 Urine Culture - Final Urine Random 10-50,000 CFU/ML. MULTIPLE SPECIES. PROBABLE CONTAMINATION. Lab Studies 03/03/19 03/03/19 03/03/19 Range/Units 12:17 06:02 06:02 WBC (4.8-10.8) K/uL RBC (4.40-5.90) Mil/uL Hgb (12.0-18.0) g/dL Hct (35.0-51.0) % MCV (80.0-94.0) fL MCH (27.0-31.0) pg MCHC (33.0-37.0) g/dL RDW (11.5-14.5) % Plt Count (130-400) K/uL MPV (7.2-11.7) fL Neut % (Auto) (50.0-75.0) % Lymph % (Auto) (20.0-40.0) % [place] % (Auto) (0.0-10.0) % Eos % (Auto) (0.0-4.0) % Baso % (Auto) (0.0-2.0) % Neut # (Auto) (1.8-7.0) K/uL Lymph # (Auto) (1.0-4.3) K/uL [place] # (Auto) (0.0-0.8) K/uL Eos # (Auto) (0.0-0.7) K/uL Baso # (Auto) (0.0-0.2) K/uL Neutrophils % (Manual) (50-75) % Band Neutrophils % (0-2) % Lymphocytes % (Manual) (20-40) % Monocytes % (Manual) (0-10) % Platelet Estimate (NORMAL) Poikilocytosis (manual Basophilic Stippling Anisocytosis (manual) [place] Cells Puncture Site pCO2 (35-45) mm/Hg pO2 (80-100) mm/Hg HCO3 (21-28) mmol/L ABG pH (7.35-7.45) ABG Total CO2 (22-28) mmol/L ABG O2 Saturation (95-98) % ABG Base Excess (-2.0-3.0) mmol/L Bob Test ABG Potassium (3.6-5.2) mmol/L A-a O2 Difference mm/Hg Respiratory Index Glucose (75-110) mg/dl Lactate (0.7-2.1) mmol/L Liter Flow FiO2 % Crit Value Called To Crit Value Called By Crit Value Read Back Blood Gas Notified Time Sodium 119 L* 120 L* (132-148) mmol/L Potassium 4.0 3.7 (3.6-5.2) mmol/L Chloride 89 L 89 L (98-107) mmol/L Carbon Dioxide 20 L 21 L (22-30) mmol/L Anion Gap 15 13 (10-20) BUN 3 L 4 L (9-20) mg/dL Creatinine 0.6 L 0.6 L (0.8-1.5) mg/dL Est GFR ( Amer) > 60 > 60 Est GFR (Non-Af Amer) > 60 > 60 POC Glucose (mg/dL) (65-110) mg/dL Random Glucose 174 H D 137 H D (75-110) mg/dL Calcium 8.1 L 7.7 L (8.6-10.4) mg/dl Phosphorus 2.0 L (2.5-4.5) mg/dL Magnesium 1.7 (1.6-2.3) mg/dL Total Bilirubin 0.5 (0.2-1.3) mg/dL AST 54 (17-59) U/L ALT 35 (21-72) U/L Alkaline Phosphatase 98 (38-126) U/L NT-Pro-B Natriuret Pep 1790 H (0-900) pg/mL Total Protein 5.3 L (6.3-8.3) g/dL Albumin 2.9 L (3.5-5.0) g/dL Globulin 2.4 (2.2-3.9) gm/dL Albumin/Globulin Ratio 1.2 (1.0-2.1) Arterial Blood Potassium (3.6-5.2) mmol/L Random Vancomycin 10.2 ug/mL 05/10/19 05/10/19 05/10/19 Range/Units 06:02 05:46 03:38 WBC 6.9 (4.8-10.8) K/uL RBC 3.10 L (4.40-5.90) Mil/uL Hgb 10.3 L (12.0-18.0) g/dL Hct 28.5 L (35.0-51.0) % MCV 91.9 (80.0-94.0) fL MCH 33.2 H (27.0-31.0) pg MCHC 36.1 (33.0-37.0) g/dL RDW 15.4 H (11.5-14.5) % Plt Count 153 (130-400) K/uL MPV 7.7 (7.2-11.7) fL Neut % (Auto) 92.7 H (50.0-75.0) % Lymph % (Auto) 4.0 L (20.0-40.0) % [place] % (Auto) 2.7 (0.0-10.0) % Eos % (Auto) 0.2 (0.0-4.0) % Baso % (Auto) 0.4 (0.0-2.0) % Neut # (Auto) 6.4 (1.8-7.0) K/uL Lymph # (Auto) 0.3 L (1.0-4.3) K/uL [place] # (Auto) 0.2 (0.0-0.8) K/uL Eos # (Auto) 0.0 (0.0-0.7) K/uL Baso # (Auto) 0.0 (0.0-0.2) K/uL Neutrophils % (Manual) 92 H (50-75) % Band Neutrophils % 2 (0-2) % Lymphocytes % (Manual) 4 L (20-40) % Monocytes % (Manual) 2 (0-10) % Platelet Estimate Normal (NORMAL) Poikilocytosis (manual Slight Basophilic Stippling Slight Anisocytosis (manual) Slight Tra Cells Moderate Puncture Site Rr pCO2 32 L (35-45) mm/Hg pO2 198 H (80-100) mm/Hg HCO3 21.4 (21-28) mmol/L ABG pH 7.39 (7.35-7.45) ABG Total CO2 20.4 L (22-28) mmol/L ABG O2 Saturation 99.0 H (95-98) % ABG Base Excess -4.6 L (-2.0-3.0) mmol/L Bob Test Pos ABG Potassium 3.3 L (3.6-5.2) mmol/L A-a O2 Difference 475.0 mm/Hg Respiratory Index 2.4 Glucose 125 H (75-110) mg/dl Lactate 0.4 L (0.7-2.1) mmol/L Liter Flow 15.0 FiO2 100.0 % Crit Value Called To June rn Crit Value Called By Alejandra tow truck dispatcher Crit Value Read Back Y Blood Gas Notified Time 342 Sodium 117.0 L* (132-148) mmol/L Potassium (3.6-5.2) mmol/L Chloride 92.0 L (98-107) mmol/L Carbon Dioxide (22-30) mmol/L Anion Gap (10-20) BUN (9-20) mg/dL Creatinine (0.8-1.5) mg/dL Est GFR ( Amer) Est GFR (Non-Af Amer) POC Glucose (mg/dL) 188 H (65-110) mg/dL Random Glucose (75-110) mg/dL Calcium (8.6-10.4) mg/dl Phosphorus (2.5-4.5) mg/dL Magnesium (1.6-2.3) mg/dL Total Bilirubin (0.2-1.3) mg/dL AST (17-59) U/L ALT (21-72) U/L Alkaline Phosphatase (38-126) U/L NT-Pro-B Natriuret Pep (0-900) pg/mL Total Protein (6.3-8.3) g/dL Albumin (3.5-5.0) g/dL Globulin (2.2-3.9) gm/dL Albumin/Globulin Ratio (1.0-2.1) Arterial Blood Potassium 3.3 L (3.6-5.2) mmol/L Random Vancomycin ug/mL 03/03/19 03/02/19 03/02/19 Range/Units 00:13 23:54 19:42 WBC (4.8-10.8) K/uL RBC (4.40-5.90) Mil/uL Hgb (12.0-18.0) g/dL Hct (35.0-51.0) % MCV (80.0-94.0) fL MCH (27.0-31.0) pg MCHC (33.0-37.0) g/dL RDW (11.5-14.5) % Plt Count (130-400) K/uL MPV (7.2-11.7) fL Neut % (Auto) (50.0-75.0) % Lymph % (Auto) (20.0-40.0) % [place] % (Auto) (0.0-10.0) % Eos % (Auto) (0.0-4.0) % Baso % (Auto) (0.0-2.0) % Neut # (Auto) (1.8-7.0) K/uL Lymph # (Auto) (1.0-4.3) K/uL [place] # (Auto) (0.0-0.8) K/uL Eos # (Auto) (0.0-0.7) K/uL Baso # (Auto) (0.0-0.2) K/uL Neutrophils % (Manual) (50-75) % Band Neutrophils % (0-2) % Lymphocytes % (Manual) (20-40) % Monocytes % (Manual) (0-10) % Platelet Estimate (NORMAL) Poikilocytosis (manual Basophilic Stippling Anisocytosis (manual) Tra Cells Puncture Site pCO2 (35-45) mm/Hg pO2 (80-100) mm/Hg HCO3 (21-28) mmol/L ABG pH (7.35-7.45) ABG Total CO2 (22-28) mmol/L ABG O2 Saturation (95-98) % ABG Base Excess (-2.0-3.0) mmol/L Bob Test ABG Potassium (3.6-5.2) mmol/L A-a O2 Difference mm/Hg Respiratory Index Glucose (75-110) mg/dl Lactate (0.7-2.1) mmol/L Liter Flow FiO2 % Crit Value Called To Crit Value Called By Crit Value Read Back Blood Gas Notified Time Sodium 120 L* (132-148) mmol/L Potassium 3.6 (3.6-5.2) mmol/L Chloride 90 L (98-107) mmol/L Carbon Dioxide 23 (22-30) mmol/L Anion Gap 10 (10-20) BUN 4 L (9-20) mg/dL Creatinine 0.7 L (0.8-1.5) mg/dL Est GFR ( Amer) > 60 Est GFR (Non-Af Amer) > 60 POC Glucose (mg/dL) 117 H (65-110) mg/dL Random Glucose 114 H D (75-110) mg/dL Calcium 7.5 L (8.6-10.4) mg/dl Phosphorus 2.2 L (2.5-4.5) mg/dL Magnesium 2.1 (1.6-2.3) mg/dL Total Bilirubin (0.2-1.3) mg/dL AST (17-59) U/L ALT (21-72) U/L Alkaline Phosphatase (38-126) U/L NT-Pro-B Natriuret Pep (0-900) pg/mL Total Protein (6.3-8.3) g/dL Albumin (3.5-5.0) g/dL Globulin (2.2-3.9) gm/dL Albumin/Globulin Ratio (1.0-2.1) Arterial Blood Potassium (3.6-5.2) mmol/L Random Vancomycin ug/mL 03/02/19 03/02/19 03/02/19 Range/Units 18:13 17:58 12:07 WBC (4.8-10.8) K/uL RBC (4.40-5.90) Mil/uL Hgb (12.0-18.0) g/dL Hct (35.0-51.0) % MCV (80.0-94.0) fL MCH (27.0-31.0) pg MCHC (33.0-37.0) g/dL RDW (11.5-14.5) % Plt Count (130-400) K/uL MPV (7.2-11.7) fL Neut % (Auto) (50.0-75.0) % Lymph % (Auto) (20.0-40.0) % [place] % (Auto) (0.0-10.0) % Eos % (Auto) (0.0-4.0) % Baso % (Auto) (0.0-2.0) % Neut # (Auto) (1.8-7.0) K/uL Lymph # (Auto) (1.0-4.3) K/uL [place] # (Auto) (0.0-0.8) K/uL Eos # (Auto) (0.0-0.7) K/uL Baso # (Auto) (0.0-0.2) K/uL Neutrophils % (Manual) (50-75) % Band Neutrophils % (0-2) % Lymphocytes % (Manual) (20-40) % Monocytes % (Manual) (0-10) % Platelet Estimate (NORMAL) Poikilocytosis (manual Basophilic Stippling Anisocytosis (manual) [place] Cells Puncture Site pCO2 (35-45) mm/Hg pO2 (80-100) mm/Hg HCO3 (21-28) mmol/L ABG pH (7.35-7.45) ABG Total CO2 (22-28) mmol/L ABG O2 Saturation (95-98) % ABG Base Excess (-2.0-3.0) mmol/L Bob Test ABG Potassium (3.6-5.2) mmol/L A-a O2 Difference mm/Hg Respiratory Index Glucose (75-110) mg/dl Lactate (0.7-2.1) mmol/L Liter Flow FiO2 % Crit Value Called To Crit Value Called By Crit Value Read Back Blood Gas Notified Time Sodium 120 L* (132-148) mmol/L Potassium 4.4 (3.6-5.2) mmol/L Chloride 93 L (98-107) mmol/L Carbon Dioxide 21 L (22-30) mmol/L Anion Gap 10 (10-20) BUN 5 L (9-20) mg/dL Creatinine 0.7 L (0.8-1.5) mg/dL Est GFR ( Amer) > 60 Est GFR (Non-Af Amer) > 60 POC Glucose (mg/dL) 82 114 H (65-110) mg/dL Random Glucose 75 D (75-110) mg/dL Calcium 7.5 L (8.6-10.4) mg/dl Phosphorus (2.5-4.5) mg/dL Magnesium (1.6-2.3) mg/dL Total Bilirubin (0.2-1.3) mg/dL AST (17-59) U/L ALT (21-72) U/L Alkaline Phosphatase (38-126) U/L NT-Pro-B Natriuret Pep (0-900) pg/mL Total Protein (6.3-8.3) g/dL Albumin (3.5-5.0) g/dL Globulin (2.2-3.9) gm/dL Albumin/Globulin Ratio (1.0-2.1) Arterial Blood Potassium (3.6-5.2) mmol/L Random Vancomycin ug/mL 03/02/19 03/01/19 03/01/19 Range/Units 06:44 23:19 17:48 WBC (4.8-10.8) K/uL RBC (4.40-5.90) Mil/uL Hgb (12.0-18.0) g/dL Hct (35.0-51.0) % MCV (80.0-94.0) fL MCH (27.0-31.0) pg MCHC (33.0-37.0) g/dL RDW (11.5-14.5) % Plt Count (130-400) K/uL MPV (7.2-11.7) fL Neut % (Auto) (50.0-75.0) % Lymph % (Auto) (20.0-40.0) % [place] % (Auto) (0.0-10.0) % Eos % (Auto) (0.0-4.0) % Baso % (Auto) (0.0-2.0) % Neut # (Auto) (1.8-7.0) K/uL Lymph # (Auto) (1.0-4.3) K/uL [place] # (Auto) (0.0-0.8) K/uL Eos # (Auto) (0.0-0.7) K/uL Baso # (Auto) (0.0-0.2) K/uL Neutrophils % (Manual) (50-75) % Band Neutrophils % (0-2) % Lymphocytes % (Manual) (20-40) % Monocytes % (Manual) (0-10) % Platelet Estimate (NORMAL) Poikilocytosis (manual Basophilic Stippling Anisocytosis (manual) [place] Cells Puncture Site pCO2 (35-45) mm/Hg pO2 (80-100) mm/Hg HCO3 (21-28) mmol/L ABG pH (7.35-7.45) ABG Total CO2 (22-28) mmol/L ABG O2 Saturation (95-98) % ABG Base Excess (-2.0-3.0) mmol/L Bob Test ABG Potassium (3.6-5.2) mmol/L A-a O2 Difference mm/Hg Respiratory Index Glucose (75-110) mg/dl Lactate (0.7-2.1) mmol/L Liter Flow FiO2 % Crit Value Called To Crit Value Called By Crit Value Read Back Blood Gas Notified Time Sodium (132-148) mmol/L Potassium (3.6-5.2) mmol/L Chloride (98-107) mmol/L Carbon Dioxide (22-30) mmol/L Anion Gap (10-20) BUN (9-20) mg/dL Creatinine (0.8-1.5) mg/dL Est GFR ( Amer) Est GFR (Non-Af Amer) POC Glucose (mg/dL) 91 78 165 H (65-110) mg/dL Random Glucose (75-110) mg/dL Calcium (8.6-10.4) mg/dl Phosphorus (2.5-4.5) mg/dL Magnesium (1.6-2.3) mg/dL Total Bilirubin (0.2-1.3) mg/dL AST (17-59) U/L ALT (21-72) U/L Alkaline Phosphatase (38-126) U/L NT-Pro-B Natriuret Pep (0-900) pg/mL Total Protein (6.3-8.3) g/dL Albumin (3.5-5.0) g/dL Globulin (2.2-3.9) gm/dL Albumin/Globulin Ratio (1.0-2.1) Arterial Blood Potassium (3.6-5.2) mmol/L Random Vancomycin ug/mL Laboratory Results - last 24 hr 03/01/19 03/01/19 03/02/19 17:48 23:19 06:44 WBC RBC Hgb Hct MCV MCH MCHC RDW Plt Count MPV Neut % (Auto) Lymph % (Auto) [place] % (Auto) Eos % (Auto) Baso % (Auto) Neut # (Auto) Lymph # (Auto) [place] # (Auto) Eos # (Auto) Baso # (Auto) Neutrophils % (Manual) Band Neutrophils % Lymphocytes % (Manual) Monocytes % (Manual) Platelet Estimate Poikilocytosis (manual Basophilic Stippling Anisocytosis (manual) [place] Cells Puncture Site pCO2 pO2 HCO3 ABG pH ABG Total CO2 ABG O2 Saturation ABG Base Excess Bob Test ABG Potassium A-a O2 Difference Respiratory Index Glucose Lactate Liter Flow FiO2 Crit Value Called To Crit Value Called By Crit Value Read Back Blood Gas Notified Time Sodium Potassium Chloride Carbon Dioxide Anion Gap BUN Creatinine Est GFR ( Amer) Est GFR (Non-Af Amer) POC Glucose (mg/dL) 165 H 78 91 Random Glucose Calcium Phosphorus Magnesium Total Bilirubin AST ALT Alkaline Phosphatase NT-Pro-B Natriuret Pep Total Protein Albumin Globulin Albumin/Globulin Ratio Arterial Blood Potassium Random Vancomycin 03/02/19 03/02/19 03/02/19 12:07 17:58 18:13 WBC RBC Hgb Hct MCV MCH MCHC RDW Plt Count MPV Neut % (Auto) Lymph % (Auto) [place] % (Auto) Eos % (Auto) Baso % (Auto) Neut # (Auto) Lymph # (Auto) [place] # (Auto) Eos # (Auto) Baso # (Auto) Neutrophils % (Manual) Band Neutrophils % Lymphocytes % (Manual) Monocytes % (Manual) Platelet Estimate Poikilocytosis (manual Basophilic Stippling Anisocytosis (manual) [place] Cells Puncture Site pCO2 pO2 HCO3 ABG pH ABG Total CO2 ABG O2 Saturation ABG Base Excess Bob Test ABG Potassium A-a O2 Difference Respiratory Index Glucose Lactate Liter Flow FiO2 Crit Value Called To Crit Value Called By Crit Value Read Back Blood Gas Notified Time Sodium 120 L* Potassium 4.4 Chloride 93 L Carbon Dioxide 21 L Anion Gap 10 BUN 5 L Creatinine 0.7 L Est GFR ( Amer) > 60 Est GFR (Non-Af Amer) > 60 POC Glucose (mg/dL) 114 H 82 Random Glucose 75 D Calcium 7.5 L Phosphorus Magnesium Total Bilirubin AST ALT Alkaline Phosphatase NT-Pro-B Natriuret Pep Total Protein Albumin Globulin Albumin/Globulin Ratio Arterial Blood Potassium Random Vancomycin 03/02/19 03/02/19 03/03/19 19:42 23:54 00:13 WBC RBC Hgb Hct MCV MCH MCHC RDW Plt Count MPV Neut % (Auto) Lymph % (Auto) [place] % (Auto) Eos % (Auto) Baso % (Auto) Neut # (Auto) Lymph # (Auto) [place] # (Auto) Eos # (Auto) Baso # (Auto) Neutrophils % (Manual) Band Neutrophils % Lymphocytes % (Manual) Monocytes % (Manual) Platelet Estimate Poikilocytosis (manual Basophilic Stippling Anisocytosis (manual) [place] Cells Puncture Site pCO2 pO2 HCO3 ABG pH ABG Total CO2 ABG O2 Saturation ABG Base Excess Bob Test ABG Potassium A-a O2 Difference Respiratory Index Glucose Lactate Liter Flow FiO2 Crit Value Called To Crit Value Called By Crit Value Read Back Blood Gas Notified Time Sodium 120 L* Potassium 3.6 Chloride 90 L Carbon Dioxide 23 Anion Gap 10 BUN 4 L Creatinine 0.7 L Est GFR ( Amer) > 60 Est GFR (Non-Af Amer) > 60 POC Glucose (mg/dL) 117 H Random Glucose 114 H D Calcium 7.5 L Phosphorus 2.2 L Magnesium 2.1 Total Bilirubin AST ALT Alkaline Phosphatase NT-Pro-B Natriuret Pep Total Protein Albumin Globulin Albumin/Globulin Ratio Arterial Blood Potassium Random Vancomycin 03/03/19 03/03/19 03/03/19 03:38 05:46 06:02 WBC 6.9 RBC 3.10 L Hgb 10.3 L Hct 28.5 L MCV 91.9 MCH 33.2 H MCHC 36.1 RDW 15.4 H Plt Count 153 MPV 7.7 Neut % (Auto) 92.7 H Lymph % (Auto) 4.0 L [place] % (Auto) 2.7 Eos % (Auto) 0.2 Baso % (Auto) 0.4 Neut # (Auto) 6.4 Lymph # (Auto) 0.3 L [place] # (Auto) 0.2 Eos # (Auto) 0.0 Baso # (Auto) 0.0 Neutrophils % (Manual) 92 H Band Neutrophils % 2 Lymphocytes % (Manual) 4 L Monocytes % (Manual) 2 Platelet Estimate Normal Poikilocytosis (manual Slight Basophilic Stippling Slight Anisocytosis (manual) Slight Tra Cells Moderate Puncture Site Rr pCO2 32 L pO2 198 H HCO3 21.4 ABG pH 7.39 ABG Total CO2 20.4 L ABG O2 Saturation 99.0 H ABG Base Excess -4.6 L Bob Test Pos ABG Potassium 3.3 L A-a O2 Difference 475.0 Respiratory Index 2.4 Glucose 125 H Lactate 0.4 L Liter Flow 15.0 FiO2 100.0 Crit Value Called To June rn Crit Value Called By Alejandra tow truck dispatcher Crit Value Read Back Y Blood Gas Notified Time 342 Sodium 117.0 L* Potassium Chloride 92.0 L Carbon Dioxide Anion Gap BUN Creatinine Est GFR ( Amer) Est GFR (Non-Af Amer) POC Glucose (mg/dL) 188 H Random Glucose Calcium Phosphorus Magnesium Total Bilirubin AST ALT Alkaline Phosphatase NT-Pro-B Natriuret Pep Total Protein Albumin Globulin Albumin/Globulin Ratio Arterial Blood Potassium 3.3 L Random Vancomycin 03/03/19 03/03/19 03/03/19 06:02 06:02 12:17 WBC RBC Hgb Hct MCV MCH MCHC RDW Plt Count MPV Neut % (Auto) Lymph % (Auto) [place] % (Auto) Eos % (Auto) Baso % (Auto) Neut # (Auto) Lymph # (Auto) [place] # (Auto) Eos # (Auto) Baso # (Auto) Neutrophils % (Manual) Band Neutrophils % Lymphocytes % (Manual) Monocytes % (Manual) Platelet Estimate Poikilocytosis (manual Basophilic Stippling Anisocytosis (manual) [place] Cells Puncture Site pCO2 pO2 HCO3 ABG pH ABG Total CO2 ABG O2 Saturation ABG Base Excess Bob Test ABG Potassium A-a O2 Difference Respiratory Index Glucose Lactate Liter Flow FiO2 Crit Value Called To Crit Value Called By Crit Value Read Back Blood Gas Notified Time Sodium 120 L* 119 L* Potassium 3.7 4.0 Chloride 89 L 89 L Carbon Dioxide 21 L 20 L Anion Gap 13 15 BUN 4 L 3 L Creatinine 0.6 L 0.6 L Est GFR ( Amer) > 60 > 60 Est GFR (Non-Af Amer) > 60 > 60 POC Glucose (mg/dL) Random Glucose 137 H D 174 H D Calcium 7.7 L 8.1 L Phosphorus 2.0 L Magnesium 1.7 Total Bilirubin 0.5 AST 54 ALT 35 Alkaline Phosphatase 98 NT-Pro-B Natriuret Pep 1790 H Total Protein 5.3 L Albumin 2.9 L Globulin 2.4 Albumin/Globulin Ratio 1.2 Arterial Blood Potassium Random Vancomycin 10.2 Radiology Impressions: Radiology Impressions Chest X-Ray 03/03/19 07:00 IMPRESSION: Moderate pulmonary venous congestion. No active pulmonary disease. Right IJV line terminates in the SVC. Critical Care Progress Note - Nutrition Nutrition: Nutrition Category Date Time Status NPO Diet [DIET] Diets 03/01/19 Dinner Active Attending/Attestation - Attestation I have personally seen and examined this patient.: Yes I have fully participated in the care of the patient.: Yes I have reviewed all pertinent clinical information: Yes Notes (Text): 03/03/19 16:26 Patient seen and examined in the intensive care unit. Case discussed with housestaff in the morning rounds. Patient self extubated in the morning No respiratory distress Saturating well Swallowing evaluation Continue antibiotics for pneumonia Follow-up chest x-ray and ABG
--- NOTE | 2019-03-03 13:18 | CP.PCM.PN ---
<Ed Claire - Last Filed: 03/03/19 15:07> Subjective - Date & Time of Evaluation Date of Evaluation: 03/03/19 Time of Evaluation: 09:30 - Subjective Subjective: Nephrology progress note Patient seen at bedside in no acute distress. As per nursing notes patient self extubated. Patient states he is hungry. Swallow evaluation to be done by speech pathologist. Attempting to speak in full sentences but still not that intelligible. Physical Exam - Constitutional Appears: Non-toxic, No Acute Distress - Eye Exam Eye Exam: Normal appearance. absent: Scleral icterus - Respiratory Exam Respiratory Exam: Clear to Ausculation Bilateral. absent: Respiratory Distress - Cardiovascular Exam Cardiovascular Exam: RRR, +S1, +S2 - GI/Abdominal Exam GI & Abdominal Exam: Soft. absent: Distended - Exam Exam: absent: Bladder Distension - Extremities Exam Additional comments: no leg edema; - Neurological Exam Neurological Exam: Alert, Awake - Psychiatric Exam Psychiatric exam: absent: Agitated - Skin Skin Exam: Warm. absent: Cyanosis Objective - Vital Signs/Intake and Output Vital Signs (last 24 hours): Temp Pulse Resp BP Pulse Ox 98.3 F 71 14 117/62 100 03/03/19 12:00 03/03/19 13:00 03/03/19 13:00 03/03/19 13:00 03/03/19 12:30 Intake and Output: 03/03/19 03/03/19 06:59 18:59 Intake Total 1369.1 462.5 Output Total 800 300 Balance 569.1 162.5 - Medications Medications: Current Medications Albuterol/Ipratropium (Duoneb 3 Mg/0.5 Mg (3 Ml) Ud) 3 ml INH RQ4 MAYANK Last Admin: 03/03/19 08:02 Dose: 3 ml Heparin Sodium (Porcine) (Heparin) 5,000 units SC Q8 MAYANK Last Admin: 03/03/19 05:00 Dose: Not Given Piperacillin Sod/Tazobactam Sod (Zosyn 3.375 Gm Iv Premix) 3.375 gm in 50 mls @ 100 mls/hr IVPB Q6H MAYANK; Protocol Last Admin: 03/03/19 09:32 Dose: 100 mls/hr Vancomycin HCl 1 gm/ Sodium (Chloride) 250 mls @ 166.7 mls/hr IVPB Q24H MAYANK; Protocol Last Admin: 03/02/19 16:17 Dose: 166.7 mls/hr Levetiracetam 500 mg/ Dextrose 105 mls @ 420 mls/hr IVPB Q12H [facility]ANK Last Admin: 03/03/19 03:45 Dose: 420 mls/hr Dexmedetomidine HCl 200 mcg/ (Sodium Chloride) 50 mls @ 3.15 mls/hr IV TITR PRN; Protocol PRN Reason: Agitation Methylprednisolone (Solu-Medrol) 40 mg IVP Q8H MAYANK Last Admin: 03/03/19 11:10 Dose: 40 mg Pantoprazole Sodium (Protonix Inj) 40 mg IVP Q12 [facility]ANK Last Admin: 03/03/19 09:32 Dose: 40 mg - Labs Labs: 03/03/19 06:02 03/03/19 12:17 PT 11.7 SECONDS (9.7-12.2) 03/01/19 10:58 INR 1.1 03/01/19 10:58 APTT 30.0 SECONDS (21-34) 03/01/19 10:58 Assessment and Plan - Assessment and Plan (Free Text) Assessment: Hyponatremia D5W discontinued Will recheck BMP to determine hyponatremia status Will collect Urine Osm to determine if ADH effect of desmopressin is still under effect <Messi Shafer - Last Filed: 03/04/19 05:48> Objective - Vital Signs/Intake and Output Vital Signs (last 24 hours): Temp Pulse Resp BP Pulse Ox 98.4 F 81 19 116/64 97 03/04/19 00:00 03/04/19 04:30 03/04/19 04:30 03/04/19 04:30 03/04/19 04:30 Intake and Output: 03/03/19 03/04/19 18:59 06:59 Intake Total 867.5 344.58 Output Total 500 370 Balance 367.5 -25.42 - Medications Medications: Current Medications Albuterol/Ipratropium (Duoneb 3 Mg/0.5 Mg (3 Ml) Ud) 3 ml INH RQ4 MAYANK Last Admin: 03/04/19 00:31 Dose: 3 ml Heparin Sodium (Porcine) (Heparin) 5,000 units SC Q8 [facility]ANK Last Admin: 03/03/19 21:04 Dose: 5,000 units Piperacillin Sod/Tazobactam Sod (Zosyn 3.375 Gm Iv Premix) 3.375 gm in 50 mls @ 100 mls/hr IVPB Q6H [facility]ANK; Protocol Last Admin: 03/04/19 03:30 Dose: 100 mls/hr Vancomycin HCl 1 gm/ Sodium (Chloride) 250 mls @ 166.7 mls/hr IVPB Q24H [facility]ANK; Protocol Last Admin: 03/03/19 16:04 Dose: 166.7 mls/hr Levetiracetam 500 mg/ Dextrose 105 mls @ 420 mls/hr IVPB Q12H [facility] Last Admin: 03/04/19 03:15 Dose: 420 mls/hr Dexmedetomidine HCl 200 mcg/ (Sodium Chloride) 50 mls @ 3.15 mls/hr IV TITR PRN; Protocol PRN Reason: Agitation Last Titration: 03/04/19 04:44 Dose: 0.4 mcg/kg/hr, 6.3 mls/hr Sodium Chloride (Hypertonic Saline 3%) 500 mls @ 25 mls/hr IV .Q20H ONE Stop: 03/04/19 12:59 Last Admin: 03/03/19 16:26 Dose: 25 mls/hr Methylprednisolone (Solu-Medrol) 40 mg IVP Q8H [facility]ANK Last Admin: 03/04/19 03:38 Dose: 40 mg Pantoprazole Sodium (Protonix Inj) 40 mg IVP Q12 [facility]ANK Last Admin: 03/03/19 21:04 Dose: 40 mg - Labs Labs: 03/03/19 06:02 03/03/19 22:03 PT 11.7 SECONDS (9.7-12.2) 03/01/19 10:58 INR 1.1 03/01/19 10:58 APTT 30.0 SECONDS (21-34) 03/01/19 10:58 Assessment and Plan (1) Hyponatremia Status: Acute (2) Hypokalemia Status: Acute Attending/Attestation - Attestation I have personally seen and examined this patient.: Yes I have fully participated in the care of the patient.: Yes I have reviewed all pertinent clinical information, including history, physical exam and plan: Yes Notes (Text): Patient seen and examined; I agree with the resident's note as above with the following additions/edits: 53 yo M w/ pmh of alcohol abuse, seizure disorder, cardiac arrest (2017), PUD s/p partial gastrectomy, HTN, COPD, admitted with AMS, nephrology following for severe hyponatremia; Patient self-extubated overnight; failed swallow eval; somewhat agitated at times but is overall coherent; Hyponatremia course consistent with intravascular volume depletion as is evidenced by rapid rise in serum Na and brisk diuresis following saline bolus on admission; desmopressin and D5W boluses given yesterday to lower back serum Na to safe range; serum Na continues to decrease today under the effect of desmopressin; therefore, we are restarting hypertonic saline while giving another dose of desmopressin (in order to prevent rapid rise is serum Na); Still with evidence of volume depletion yesterday with hypotension at times; hypertonic saline will help correct volume deficit as well; -restarting hypertonic 3% saline at 25 cc/hr; will titrate to achieve goal rate of rise of serum Na of 6-8 meq in 24 hr period; -desmopressin 2 mcg subcu x 1; will monitor effect with repeat urine osm; -continue bmp q6h;
[2019-03-03] MEDS ORDERED: Sodium Chloride 3% 500 ML IV ONE (17:00)
[2019-03-03] MEDS ORDERED: Desmopressin 4 mcg/ml Inj (1 ml) SC ONE (17:00)
[2019-03-03 18:27] LABS: BLOOD UREA NITROGEN 3 mg/dL (9-20); CALCIUM 8.2 mg/dl (8.6-10.4); GFR NON-AFRICAN AMERICAN > 60
[2019-03-03 22:25] LABS: BLOOD UREA NITROGEN 3 mg/dL (9-20); CALCIUM 8.2 mg/dl (8.6-10.4); GFR NON-AFRICAN AMERICAN > 60
[2019-03-03] MEDS: Dexmedetomidine Hydrochloride 200 MCG in Sodium Chloride 0.9% 48 ML IV PRN (22:45)
[2019-03-04] MEDS: Albuterol-Ipratrop 3 mg / 0.5 (3 ml) UD INH SCH ×6 (00:31→19:16)
[2019-03-04] MEDS: Piperacill/Tazo 3.375gm in Dex 3.375 GM/50 ML BAG IVPB SCH ×4 (03:30→21:01)
[2019-03-04] MEDS: MethylPREDNISolone 40 mg Vial IVP SCH (03:38)
[2019-03-04 06:02] LABS: BASO % 0.2 % (0.0-2.0); EOS % 0.2 % (0.0-4.0); HEMOGLOBIN 9.4 g/dL (12.0-18.0); LYMPH # 0.4 K/uL (1.0-4.3); LYMPH % 5.4 % (20.0-40.0); MEAN CELL VOLUME 92.9 fL (80.0-94.0); MEAN CORPUSCULAR HEMOGLOBIN 32.4 pg (27.0-31.0); MEAN CORPUSCULAR HGB CONC 34.8 g/dL (33.0-37.0); MEAN PLATELET VOLUME 7.8 fL (7.2-11.7); MONO # 0.2 K/uL (0.0-0.8); MONO % 3.2 % (0.0-10.0); NEUT # 6.3 K/uL (1.8-7.0); PLATELET COUNT 138 K/uL (130-400); RBC 2.91 Mil/uL (4.40-5.90); RED CELL DISTRIBUTION WIDTH 15.1 % (11.5-14.5); WHITE BLOOD COUNT 6.9 K/uL (4.8-10.8)
[2019-03-04 06:25] LABS: ALB/GLOB RATIO 1.3 (1.0-2.1); ALBUMIN 3.1 g/dL (3.5-5.0); ALT/SGPT 34 U/L (21-72); AST/SGOT 36 U/L (17-59); BLOOD UREA NITROGEN 3 mg/dL (9-20); CALCIUM 8.2 mg/dl (8.6-10.4); GFR NON-AFRICAN AMERICAN > 60
[2019-03-04] MEDS: Dexmedetomidine Hydrochloride 200 MCG in Sodium Chloride 0.9% 48 ML IV PRN ×3 (08:01→23:54)
--- NOTE | 2019-03-04 08:35 | CP.CCUPN ---
CCU Subjective - Physician Review Events Since Last Encounter (Free Text): 03/04/19 08:34 Patient is a 53-year-old male with history of alcoholic abuse, seizure disorder, history of cardiac arrest in 2017 and also had a history of partial gastrectomy for ulcer disease, hypertension, COPD brought in because of the altered mental status. While he was admitted to the hospital patient was noted to have a severe hyponatremia. He was intubated and extubated. Patient last night had an episode of agitation and he was placed on Precedex drips. Currently patient is awake. He is more responding. Comfortable. He is feeling hungry. Denies any abdominal pain. No vomiting noted On examination: Vital signs are stable otherwise. Chest bilateral good air entry Heart sounds are regular Nontender abdomen. No pedal edema [employer] alert awake oriented I reviewed the patient's labs. Sodium is 124 now. Renal functions are normal. Chest x-ray mild congestive changes noted Assessment and recommendation: Patient is a 53-year-old male with a history of alcoholism. History of seizure disorder. Respiratory cardiac arrest in the past. Admitted now with the altered mental status. Unclear source. Seizure disorder possible. Less likely sepsis. No cultures are positive. Hyponatremia. We will discontinue the 3% saline. This will start the patient on feeding. Taper the Precedex drip. We will continue the current treatment out of bed to chair and will follow the patient CCU Objective - Vital Signs / Intake & Output Vital Signs (Last 4 hours): Vital Signs Temp Pulse Resp BP Pulse Ox 03/04/19 08:00 98.3 F 70 14 117/59 L 98 03/04/19 07:30 71 14 108/50 L 94 L 03/04/19 07:00 73 15 120/62 03/04/19 06:31 79 19 121/63 96 03/04/19 06:30 75 17 96 03/04/19 06:00 70 14 111/59 L 95 03/04/19 05:30 74 15 112/66 94 L 03/04/19 05:01 78 18 123/67 96 Intake and Output (Last 8hrs): Intake & Output 03/03/19 03/04/19 03/04/19 22:59 06:59 14:59 Intake Total 560 402.18 91.32 Output Total 450 120 Balance 110 282.18 91.32 Weight 139 lb Intake: IV 21.28 28.72 Intake, IV Amount 550 380.9 62.6 Right Distal Port 150 200 50 Internal Jugular Right Internal Jugular 350 Right Medial Port 50 30.9 12.6 Internal Jugular Right Proximal Port 150 Internal Jugular Oral 10 0 Output: Urine 450 120 Urine, Voided 450 120 Emesis 0 Other: # Bowel Movements 0 - Medications Active Medications: Active Medications Generic Name Dose Route Start Last Admin Trade Name Freq PRN Reason Stop Dose Admin Albuterol/Ipratropium 3 ml 03/03/19 04:00 03/04/19 07:41 Duoneb 3 Mg/0.5 Mg (3 Ml) Ud INH 3 ml RQ4 MAYANK Administration Heparin Sodium (Porcine) 5,000 units 03/01/19 22:00 03/04/19 07:44 Heparin SC 5,000 units Q8 MAYANK Administration Piperacillin Sod/Tazobactam Sod 3.375 gm in 50 mls @ 100 mls/hr 03/01/19 16:00 03/04/19 03:30 Zosyn 3.375 Gm Iv Premix IVPB 100 mls/hr Q6H MAYANK Administration Protocol Levetiracetam 500 mg/ Dextrose 105 mls @ 420 mls/hr 03/01/19 15:15 03/04/19 03:15 IVPB 420 mls/hr Q12H MAYANK Administration Dexmedetomidine HCl 200 mcg/ 50 mls @ 3.15 mls/hr 03/03/19 07:03 03/04/19 08:01 Sodium Chloride IV 0.4 mcg/kg/hr TITR PRN 6.3 mls/hr Agitation Administration Protocol 0.2 MCG/KG/HR - Patient Studies Lab Studies: Microbiology Studies 03/01/19 13:48 Blood Culture - Preliminary Blood NO GROWTH AFTER 48 HOURS 03/01/19 13:48 Blood Culture - Preliminary Blood NO GROWTH AFTER 48 HOURS 03/01/19 16:53 MRSA Culture (Admit) - Final Naris MRSA NOT DETECTED 03/01/19 16:20 Gram Stain - Final Trachasp Sputum Culture - Final NORMAL ORAL TOY Lab Studies 03/04/19 03/04/19 03/03/19 Range/Units 05:52 05:47 22:03 WBC 6.9 (4.8-10.8) K/uL RBC 2.91 L (4.40-5.90) Mil/uL Hgb 9.4 L (12.0-18.0) g/dL Hct 27.0 L (35.0-51.0) % MCV 92.9 (80.0-94.0) fL MCH 32.4 H (27.0-31.0) pg MCHC 34.8 (33.0-37.0) g/dL RDW 15.1 H (11.5-14.5) % Plt Count 138 (130-400) K/uL MPV 7.8 (7.2-11.7) fL Neut % (Auto) 91.0 H (50.0-75.0) % Lymph % (Auto) 5.4 L (20.0-40.0) % [place] % (Auto) 3.2 (0.0-10.0) % Eos % (Auto) 0.2 (0.0-4.0) % Baso % (Auto) 0.2 (0.0-2.0) % Neut # (Auto) 6.3 (1.8-7.0) K/uL Lymph # (Auto) 0.4 L (1.0-4.3) K/uL [place] # (Auto) 0.2 (0.0-0.8) K/uL Eos # (Auto) 0.0 (0.0-0.7) K/uL Baso # (Auto) 0.0 (0.0-0.2) K/uL Sodium 124 L 122 L (132-148) mmol/L Potassium 3.7 3.6 (3.6-5.2) mmol/L Chloride 93 L 91 L (98-107) mmol/L Carbon Dioxide 21 L 21 L (22-30) mmol/L Anion Gap 14 14 (10-20) BUN 3 L 3 L (9-20) mg/dL Creatinine 0.7 L 0.6 L (0.8-1.5) mg/dL Est GFR ( Amer) > 60 > 60 Est GFR (Non-Af Amer) > 60 > 60 Random Glucose 171 H 206 H D (75-110) mg/dL Calcium 8.2 L 8.2 L (8.6-10.4) mg/dl Phosphorus 3.0 (2.5-4.5) mg/dL Magnesium 1.6 (1.6-2.3) mg/dL Total Bilirubin 0.3 (0.2-1.3) mg/dL AST 36 (17-59) U/L ALT 34 (21-72) U/L Alkaline Phosphatase 83 (38-126) U/L Total Protein 5.4 L (6.3-8.3) g/dL Albumin 3.1 L (3.5-5.0) g/dL Globulin 2.4 (2.2-3.9) gm/dL Albumin/Globulin Ratio 1.3 (1.0-2.1) Urine Osmolality (300-1000) mosm/kg 03/03/19 03/03/19 03/03/19 Range/Units 18:07 17:30 12:17 WBC (4.8-10.8) K/uL RBC (4.40-5.90) Mil/uL Hgb (12.0-18.0) g/dL Hct (35.0-51.0) % MCV (80.0-94.0) fL MCH (27.0-31.0) pg MCHC (33.0-37.0) g/dL RDW (11.5-14.5) % Plt Count (130-400) K/uL MPV (7.2-11.7) fL Neut % (Auto) (50.0-75.0) % Lymph % (Auto) (20.0-40.0) % [place] % (Auto) (0.0-10.0) % Eos % (Auto) (0.0-4.0) % Baso % (Auto) (0.0-2.0) % Neut # (Auto) (1.8-7.0) K/uL Lymph # (Auto) (1.0-4.3) K/uL [place] # (Auto) (0.0-0.8) K/uL Eos # (Auto) (0.0-0.7) K/uL Baso # (Auto) (0.0-0.2) K/uL Sodium 121 L 119 L* (132-148) mmol/L Potassium 3.8 4.0 (3.6-5.2) mmol/L Chloride 90 L 89 L (98-107) mmol/L Carbon Dioxide 20 L 20 L (22-30) mmol/L Anion Gap 16 15 (10-20) BUN 3 L 3 L (9-20) mg/dL Creatinine 0.7 L 0.6 L (0.8-1.5) mg/dL Est GFR ( Amer) > 60 > 60 Est GFR (Non-Af Amer) > 60 > 60 Random Glucose 164 H 174 H D (75-110) mg/dL Calcium 8.2 L 8.1 L (8.6-10.4) mg/dl Phosphorus (2.5-4.5) mg/dL Magnesium (1.6-2.3) mg/dL Total Bilirubin (0.2-1.3) mg/dL AST (17-59) U/L ALT (21-72) U/L Alkaline Phosphatase (38-126) U/L Total Protein (6.3-8.3) g/dL Albumin (3.5-5.0) g/dL Globulin (2.2-3.9) gm/dL Albumin/Globulin Ratio (1.0-2.1) Urine Osmolality 236 L (300-1000) mosm/kg Laboratory Results - last 24 hr 03/03/19 03/03/19 03/03/19 12:17 17:30 18:07 WBC RBC Hgb Hct MCV MCH MCHC RDW Plt Count MPV Neut % (Auto) Lymph % (Auto) [place] % (Auto) Eos % (Auto) Baso % (Auto) Neut # (Auto) Lymph # (Auto) [place] # (Auto) Eos # (Auto) Baso # (Auto) Sodium 119 L* 121 L Potassium 4.0 3.8 Chloride 89 L 90 L Carbon Dioxide 20 L 20 L Anion Gap 15 16 BUN 3 L 3 L Creatinine 0.6 L 0.7 L Est GFR ( Amer) > 60 > 60 Est GFR (Non-Af Amer) > 60 > 60 Random Glucose 174 H D 164 H Calcium 8.1 L 8.2 L Phosphorus Magnesium Total Bilirubin AST ALT Alkaline Phosphatase Total Protein Albumin Globulin Albumin/Globulin Ratio Urine Osmolality 236 L 03/03/19 03/04/19 03/04/19 22:03 05:47 05:52 WBC 6.9 RBC 2.91 L Hgb 9.4 L Hct 27.0 L MCV 92.9 MCH 32.4 H MCHC 34.8 RDW 15.1 H Plt Count 138 MPV 7.8 Neut % (Auto) 91.0 H Lymph % (Auto) 5.4 L [place] % (Auto) 3.2 Eos % (Auto) 0.2 Baso % (Auto) 0.2 Neut # (Auto) 6.3 Lymph # (Auto) 0.4 L [place] # (Auto) 0.2 Eos # (Auto) 0.0 Baso # (Auto) 0.0 Sodium 122 L 124 L Potassium 3.6 3.7 Chloride 91 L 93 L Carbon Dioxide 21 L 21 L Anion Gap 14 14 BUN 3 L 3 L Creatinine 0.6 L 0.7 L Est GFR ( Amer) > 60 > 60 Est GFR (Non-Af Amer) > 60 > 60 Random Glucose 206 H D 171 H Calcium 8.2 L 8.2 L Phosphorus 3.0 Magnesium 1.6 Total Bilirubin 0.3 AST 36 ALT 34 Alkaline Phosphatase 83 Total Protein 5.4 L Albumin 3.1 L Globulin 2.4 Albumin/Globulin Ratio 1.3 Urine Osmolality Radiology Impressions: Radiology Impressions Chest X-Ray 03/03/19 07:00 IMPRESSION: Moderate pulmonary venous congestion. No active pulmonary disease. Right IJV line terminates in the SVC. Fingerstick Blood Sugar Results: 180 Critical Care Progress Note - Nutrition Nutrition: Nutrition Category Date Time Status Heart Healthy Diet [DIET] Diets 03/04/19 Breakfast Ordered
[2019-03-04 09:00] LABS: LYMPHOCYTE 6 % (20-40); MONOCYTE 3 % (0-10); NEUTROPHIL 91 % (50-75); PLATELET ESTIMATE NORMAL (NORMAL); TOTAL CELLS COUNTED 100
[2019-03-04 09:01] LABS: ANISOCYTOSIS SLIGHT; BURR CELLS SLIGHT; OVALOCYTES SLIGHT; POIKILOCYTOSIS SLIGHT
[2019-03-04 09:03] LABS: TOXIC GRANULATION PRESENT
[2019-03-04 12:34] LABS: BLOOD UREA NITROGEN 5 mg/dL (9-20); CALCIUM 7.8 mg/dl (8.6-10.4); GFR NON-AFRICAN AMERICAN > 60
--- NOTE | 2019-03-04 16:19 | CARD ---
APPROVED REPORT Date of service: 03/01/2019 EKG Measurement Heart [id number] <Conclusion> Normal sinus rhythm Possible Left atrial enlargement Cannot rule out Anterior infarct, age undetermined Abnormal ECG
[2019-03-04 20:19] LABS: BLOOD UREA NITROGEN 9 mg/dL (9-20); CALCIUM 8.7 mg/dl (8.6-10.4); GFR NON-AFRICAN AMERICAN > 60
--- NOTE | 2019-03-04 23:09 | CP.PCM.PN ---
Subjective - Date & Time of Evaluation Date of Evaluation: 03/04/19 Time of Evaluation: 16:00 - Subjective Subjective: Patient tolerating PO intake; no reported vomiting/diarrhea; Objective - Vital Signs/Intake and Output Vital Signs (last 24 hours): Temp Pulse Resp BP Pulse Ox 98.1 F 99 H 17 123/63 99 03/04/19 20:00 03/04/19 20:00 03/04/19 09:00 03/04/19 19:30 03/04/19 20:00 Intake and Output: 03/04/19 03/05/19 18:59 06:59 Intake Total 868.32 174.4 Output Total 800 250 Balance 68.32 -75.6 - Medications Medications: Current Medications Albuterol/Ipratropium (Duoneb 3 Mg/0.5 Mg (3 Ml) Ud) 3 ml INH RQ4 MAYANK Last Admin: 03/04/19 19:16 Dose: 3 ml Heparin Sodium (Porcine) (Heparin) 5,000 units SC Q8 MAYANK Last Admin: 03/04/19 21:01 Dose: 5,000 units Piperacillin Sod/Tazobactam Sod (Zosyn 3.375 Gm Iv Premix) 3.375 gm in 50 mls @ 100 mls/hr IVPB Q6H MAYANK; Protocol Last Admin: 03/04/19 21:01 Dose: 100 mls/hr Levetiracetam 500 mg/ Dextrose 105 mls @ 420 mls/hr IVPB Q12H MAYANK Last Admin: 03/04/19 14:24 Dose: 420 mls/hr Dexmedetomidine HCl 200 mcg/ (Sodium Chloride) 50 mls @ 3.15 mls/hr IV TITR PRN; Protocol PRN Reason: Agitation Last Titration: 03/04/19 21:02 Dose: 0.8 mcg/kg/hr, 12.6 mls/hr - Labs Labs: 03/04/19 05:52 03/04/19 19:55 PT 11.7 SECONDS (9.7-12.2) 03/01/19 10:58 INR 1.1 03/01/19 10:58 APTT 30.0 SECONDS (21-34) 03/01/19 10:58 - Constitutional Appears: Non-toxic, No Acute Distress - Eye Exam Eye Exam: Normal appearance. absent: Scleral icterus - Respiratory Exam Respiratory Exam: Clear to Ausculation Bilateral. absent: Respiratory Distress - Cardiovascular Exam Cardiovascular Exam: RRR, +S1, +S2 - GI/Abdominal Exam GI & Abdominal Exam: Soft. absent: Distended - Extremities Exam Additional comments: mild proximal leg edema; - Neurological Exam Neurological Exam: Alert, Awake - Psychiatric Exam Psychiatric exam: absent: Agitated - Skin Skin Exam: Warm. absent: Cyanosis Assessment and Plan (1) Hyponatremia Assessment & Plan: Improving on hypertonic saline, desmopressin given yesterday to prevent sudden rise in serum sodium; now off all IVF, will continue to monitor serum Na, should continue to rise with effect of desmopressin wearing off; Status: Acute (2) Hypokalemia Assessment & Plan: Corrected, continue to monitor and supplement prn; Status: Acute
[2019-03-05] MEDS: Albuterol-Ipratrop 3 mg / 0.5 (3 ml) UD INH SCH ×6 (00:38→19:37)
[2019-03-05] MEDS: Piperacill/Tazo 3.375gm in Dex 3.375 GM/50 ML BAG IVPB SCH ×4 (03:05→21:17)
[2019-03-05 05:45] LABS: BASO % 0.2 % (0.0-2.0); EOS % 0.6 % (0.0-4.0); HEMOGLOBIN 9.8 g/dL (12.0-18.0); LYMPH # 1.7 K/uL (1.0-4.3); MEAN CELL VOLUME 93.1 fL (80.0-94.0); MEAN CORPUSCULAR HEMOGLOBIN 32.4 pg (27.0-31.0); MEAN CORPUSCULAR HGB CONC 34.8 g/dL (33.0-37.0); MEAN PLATELET VOLUME 7.7 fL (7.2-11.7); MONO # 0.5 K/uL (0.0-0.8); MONO % 9.2 % (0.0-10.0); NEUT # 3.4 K/uL (1.8-7.0); RBC 3.04 Mil/uL (4.40-5.90); RED CELL DISTRIBUTION WIDTH 15.2 % (11.5-14.5); WHITE BLOOD COUNT 5.6 K/uL (4.8-10.8)
[2019-03-05 06:04] LABS: BLOOD UREA NITROGEN 11 mg/dL (9-20); CALCIUM 8.7 mg/dl (8.6-10.4); GFR NON-AFRICAN AMERICAN > 60
--- NOTE | 2019-03-05 08:51 | CP.CCUPN ---
CCU Subjective - Physician Review Events Since Last Encounter (Free Text): 03/05/19 08:50 Patient is a 53-year-old male with history of alcoholic abuse, seizure disorder, history of cardiac arrest in 2017 and also had a history of partial gastrectomy for ulcer disease, hypertension, COPD brought in because of the altered mental status. While he was admitted to the hospital patient was noted to have a severe hyponatremia. He was intubated and extubated. Patient is currently still on Precedex drips. He is awake responding comfortable. He able to eat yesterday. On examination: Vital signs are currently stable. Chest bilateral good air entry Heart sounds regular Nontender abdomen. 1+ pedal edema in the legs noted I reviewed the patient's labs. Potassium, magnesium on the low side. Being supplemented Assessment and recommendation: Patient is a 53-year-old male with a history of alcoholism. History of seizure disorder. Respiratory cardiac arrest in the past. Admitted now with the altered mental status. Unclear source. Seizure disorder possible. Less likely sepsis. No cultures are positive. Hyponatremia. Likely alcohol induced withdrawal symptoms, will monitor for the. We will discontinue Precedex drips. Librium, Ativan as needed. Out of bed to chair. Supplement potassium and magnesium. And will follow up the patient will monitor 1 more day in the intensive care unit CCU Objective - Vital Signs / Intake & Output Vital Signs (Last 4 hours): Vital Signs Pulse Resp BP Pulse Ox 03/05/19 06:00 60 13 99 03/05/19 05:34 57 L 10 L 127/67 95 03/05/19 05:00 61 12 97 Intake and Output (Last 8hrs): Intake & Output 03/04/19 03/05/19 03/05/19 22:59 06:59 14:59 Intake Total 673.7 528.5 Output Total 750 1100 Balance -76.3 -571.5 Intake: IV 35 37 Intake, IV Amount 248.7 241.5 Right Distal Port 200 150 Internal Jugular Right Medial Port 48.7 91.5 Internal Jugular Oral 390 250 Output: Urine 750 1100 Urine, Voided 750 1100 Other: # Bowel Movements 0 - Medications Active Medications: Active Medications Generic Name Dose Route Start Last Admin Trade Name Freq PRN Reason Stop Dose Admin Albuterol/Ipratropium 3 ml 03/03/19 04:00 03/05/19 07:56 Duoneb 3 Mg/0.5 Mg (3 Ml) Ud INH 3 ml RQ4 MAYANK Administration Chlordiazepoxide 5 mg 03/05/19 14:00 Librium PO 03/07/19 14:01 Q8 MAYANK Heparin Sodium (Porcine) 5,000 units 03/01/19 22:00 03/05/19 05:41 Heparin SC 5,000 units Q8 MAYANK Administration Piperacillin Sod/Tazobactam Sod 3.375 gm in 50 mls @ 100 mls/hr 03/01/19 16:00 03/05/19 03:05 Zosyn 3.375 Gm Iv Premix IVPB 100 mls/hr Q6H MAYANK Administration Protocol Levetiracetam 500 mg/ Dextrose 105 mls @ 420 mls/hr 03/01/19 15:15 03/05/19 03:04 IVPB 420 mls/hr Q12H MAYANK Administration Magnesium Sulfate/Dextrose 1 gm in 100 mls @ 300 mls/hr 03/05/19 09:00 Magnesium Sulfate 1 Gm/100 Ml D5w IVPB 03/05/19 09:49 Q30M MAYANK Potassium Chloride 20 meq in 100 mls @ 50 mls/hr 03/05/19 08:47 Potassium Chloride 20 Meq/100 Ml IVPB 03/05/19 10:46 ONCE ONE Lorazepam 1 mg 03/05/19 08:49 Ativan IVP Q6H PRN Anxiety - Patient Studies Lab Studies: Microbiology Studies 03/01/19 13:48 Blood Culture - Preliminary Blood NO GROWTH AFTER 3 DAYS 03/01/19 13:48 Blood Culture - Preliminary Blood NO GROWTH AFTER 3 DAYS Lab Studies 03/05/19 03/05/19 03/04/19 Range/Units 05:37 05:37 19:55 WBC 5.6 (4.8-10.8) K/uL RBC 3.04 L (4.40-5.90) Mil/uL Hgb 9.8 L (12.0-18.0) g/dL Hct 28.3 L (35.0-51.0) % MCV 93.1 (80.0-94.0) fL MCH 32.4 H (27.0-31.0) pg MCHC 34.8 (33.0-37.0) g/dL RDW 15.2 H (11.5-14.5) % Plt Count 161 (130-400) K/uL MPV 7.7 (7.2-11.7) fL Neut % (Auto) 60.0 (50.0-75.0) % Lymph % (Auto) 30.0 (20.0-40.0) % [place] % (Auto) 9.2 (0.0-10.0) % Eos % (Auto) 0.6 (0.0-4.0) % Baso % (Auto) 0.2 (0.0-2.0) % Neut # (Auto) 3.4 (1.8-7.0) K/uL Lymph # (Auto) 1.7 (1.0-4.3) K/uL [place] # (Auto) 0.5 (0.0-0.8) K/uL Eos # (Auto) 0.0 (0.0-0.7) K/uL Baso # (Auto) 0.0 (0.0-0.2) K/uL Neutrophils % (Manual) (50-75) % Lymphocytes % (Manual) (20-40) % Monocytes % (Manual) (0-10) % Toxic Granulation Platelet Estimate (NORMAL) Poikilocytosis (manual Anisocytosis (manual) Ovalocytes Colony Cells Sodium 130 L 128 L (132-148) mmol/L Potassium 3.4 L 3.6 (3.6-5.2) mmol/L Chloride 96 L 97 L (98-107) mmol/L Carbon Dioxide 23 21 L (22-30) mmol/L Anion Gap 15 14 (10-20) BUN 11 9 (9-20) mg/dL Creatinine 0.7 L 0.8 (0.8-1.5) mg/dL Est GFR ( Amer) > 60 > 60 Est GFR (Non-Af Amer) > 60 > 60 Random Glucose 104 106 D (75-110) mg/dL Calcium 8.7 8.7 (8.6-10.4) mg/dl Phosphorus 2.9 (2.5-4.5) mg/dL Magnesium 1.5 L (1.6-2.3) mg/dL 03/04/19 03/04/19 Range/Units 12:14 05:52 WBC (4.8-10.8) K/uL RBC (4.40-5.90) Mil/uL Hgb (12.0-18.0) g/dL Hct (35.0-51.0) % MCV (80.0-94.0) fL MCH (27.0-31.0) pg MCHC (33.0-37.0) g/dL RDW (11.5-14.5) % Plt Count (130-400) K/uL MPV (7.2-11.7) fL Neut % (Auto) (50.0-75.0) % Lymph % (Auto) (20.0-40.0) % [place] % (Auto) (0.0-10.0) % Eos % (Auto) (0.0-4.0) % Baso % (Auto) (0.0-2.0) % Neut # (Auto) (1.8-7.0) K/uL Lymph # (Auto) (1.0-4.3) K/uL [place] # (Auto) (0.0-0.8) K/uL Eos # (Auto) (0.0-0.7) K/uL Baso # (Auto) (0.0-0.2) K/uL Neutrophils % (Manual) 91 H (50-75) % Lymphocytes % (Manual) 6 L (20-40) % Monocytes % (Manual) 3 (0-10) % Toxic Granulation Present Platelet Estimate Normal (NORMAL) Poikilocytosis (manual Slight Anisocytosis (manual) Slight Ovalocytes Slight Colony Cells Slight Sodium 126 L (132-148) mmol/L Potassium 3.8 (3.6-5.2) mmol/L Chloride 93 L (98-107) mmol/L Carbon Dioxide 20 L (22-30) mmol/L Anion Gap 16 (10-20) BUN 5 L (9-20) mg/dL Creatinine 0.6 L (0.8-1.5) mg/dL Est GFR ( Amer) > 60 Est GFR (Non-Af Amer) > 60 Random Glucose 150 H (75-110) mg/dL Calcium 7.8 L (8.6-10.4) mg/dl Phosphorus (2.5-4.5) mg/dL Magnesium (1.6-2.3) mg/dL Laboratory Results - last 24 hr 03/04/19 03/04/19 03/04/19 05:52 12:14 19:55 WBC RBC Hgb Hct MCV MCH MCHC RDW Plt Count MPV Neut % (Auto) Lymph % (Auto) [place] % (Auto) Eos % (Auto) Baso % (Auto) Neut # (Auto) Lymph # (Auto) [place] # (Auto) Eos # (Auto) Baso # (Auto) Neutrophils % (Manual) 91 H Lymphocytes % (Manual) 6 L Monocytes % (Manual) 3 Toxic Granulation Present Platelet Estimate Normal Poikilocytosis (manual Slight Anisocytosis (manual) Slight Ovalocytes Slight Tra Cells Slight Sodium 126 L 128 L Potassium 3.8 3.6 Chloride 93 L 97 L Carbon Dioxide 20 L 21 L Anion Gap 16 14 BUN 5 L 9 Creatinine 0.6 L 0.8 Est GFR ( Amer) > 60 > 60 Est GFR (Non-Af Amer) > 60 > 60 Random Glucose 150 H 106 D Calcium 7.8 L 8.7 Phosphorus Magnesium 03/05/19 03/05/19 05:37 05:37 WBC 5.6 RBC 3.04 L Hgb 9.8 L Hct 28.3 L MCV 93.1 MCH 32.4 H MCHC 34.8 RDW 15.2 H Plt Count 161 MPV 7.7 Neut % (Auto) 60.0 Lymph % (Auto) 30.0 [place] % (Auto) 9.2 Eos % (Auto) 0.6 Baso % (Auto) 0.2 Neut # (Auto) 3.4 Lymph # (Auto) 1.7 [place] # (Auto) 0.5 Eos # (Auto) 0.0 Baso # (Auto) 0.0 Neutrophils % (Manual) Lymphocytes % (Manual) Monocytes % (Manual) Toxic Granulation Platelet Estimate Poikilocytosis (manual Anisocytosis (manual) Ovalocytes Tra Cells Sodium 130 L Potassium 3.4 L Chloride 96 L Carbon Dioxide 23 Anion Gap 15 BUN 11 Creatinine 0.7 L Est GFR ( Amer) > 60 Est GFR (Non-Af Amer) > 60 Random Glucose 104 Calcium 8.7 Phosphorus 2.9 Magnesium 1.5 L Fingerstick Blood Sugar Results: 158 Critical Care Progress Note - Nutrition Nutrition: Nutrition Category Date Time Status Heart Healthy Diet [DIET] Diets 03/04/19 Breakfast Active
[2019-03-05] MEDS: Magnesium Sulfate 1 gm in D5W 1 GM/100 ML BAG IVPB SCH ×2 (09:00→09:30)
[2019-03-06] MEDS: Albuterol-Ipratrop 3 mg / 0.5 (3 ml) UD INH SCH ×4 (00:34→11:08)
[2019-03-06] MEDS: Piperacill/Tazo 3.375gm in Dex 3.375 GM/50 ML BAG IVPB SCH ×4 (03:59→22:00)
[2019-03-06 05:43] LABS: BASO % 0.4 % (0.0-2.0); EOS # 0.3 K/uL (0.0-0.7); EOS % 3.2 % (0.0-4.0); HEMOGLOBIN 11.6 g/dL (12.0-18.0); LYMPH # 1.9 K/uL (1.0-4.3); LYMPH % 21.8 % (20.0-40.0); MEAN CELL VOLUME 94.3 fL (80.0-94.0); MEAN CORPUSCULAR HEMOGLOBIN 31.8 pg (27.0-31.0); MEAN CORPUSCULAR HGB CONC 33.8 g/dL (33.0-37.0); MEAN PLATELET VOLUME 7.1 fL (7.2-11.7); MONO # 0.9 K/uL (0.0-0.8); MONO % 10.4 % (0.0-10.0); NEUT # 5.4 K/uL (1.8-7.0); NEUT % 64.2 % (50.0-75.0); RBC 3.65 Mil/uL (4.40-5.90); RED CELL DISTRIBUTION WIDTH 15.3 % (11.5-14.5); WHITE BLOOD COUNT 8.5 K/uL (4.8-10.8)
[2019-03-06 05:59] LABS: BLOOD UREA NITROGEN 11 mg/dL (9-20); GFR NON-AFRICAN AMERICAN > 60
[2019-03-06] MEDS: Magnesium Sulfate 1 gm in D5W 1 GM/100 ML BAG IVPB SCH ×2 (09:20→09:42)
--- NOTE | 2019-03-06 10:00 | PCM.PSYCH ---
Initial Psychiatric Evaluation - Initial Psychiatric Evaluation History of Present Illness and Precipitating Events: Patient is a 53 year old male with history of alcohol abuse, seizure disorder, cardiac arrest (2017), PUD s/p partial gastrectomy, HTN, COPD, hiatal hernia, brought in by ALS for altered mental status. Today psych was consulted. Current Medications: Active Medications Generic Name Dose Route Start Last Admin Trade Name Freq PRN Reason Stop Dose Admin Albuterol/Ipratropium 3 ml 03/03/19 04:00 03/06/19 07:32 Duoneb 3 Mg/0.5 Mg (3 Ml) Ud INH 3 ml RQ4 MAYANK Administration Chlordiazepoxide 5 mg 03/05/19 14:00 03/06/19 05:53 Librium PO 03/07/19 14:01 5 mg Q8 MAYANK Administration Heparin Sodium (Porcine) 5,000 units 03/01/19 22:00 03/06/19 05:51 Heparin SC 5,000 units Q8 MAYANK Administration Piperacillin Sod/Tazobactam Sod 3.375 gm in 50 mls @ 100 mls/hr 03/01/19 16:00 03/06/19 09:00 Zosyn 3.375 Gm Iv Premix IVPB 100 mls/hr Q6H MAYANK Administration Protocol Levetiracetam 500 mg/ Dextrose 105 mls @ 420 mls/hr 03/01/19 15:15 03/06/19 03:00 IVPB 420 mls/hr Q12H MAYANK Administration Magnesium Sulfate/Dextrose 1 gm in 100 mls @ 200 mls/hr 03/06/19 09:15 03/06/19 09:42 Magnesium Sulfate 1 Gm/100 Ml D5w IVPB 03/06/19 10:14 200 mls/hr Q30M MAYANK Administration Lorazepam 1 mg 03/05/19 08:49 03/06/19 01:56 Ativan IVP 1 mg Q6H PRN Administration Anxiety Past Psychiatric History - Past Psychiatric History Pertinent Medical Hx (Current Medical&Sleep Prob, Allergies): Allergies Allergy/AdvReac Type Severity Reaction Status Date / Time No Known Allergies Allergy Verified 07/14/18 13:15 Lactobacillus Acidophilus [Bacid Acidophilus] 1 cap PO DAILY #30 cap 07/09/18 Mupirocin 2% Nasal [Bactroban 2% Nasal] 0.25 gm KAYA BID tube 07/09/18 Sucralfate [Carafate Oral Susp] 1 gm PO QID udc 07/09/18 guaiFENesin [Robitussin] 200 mg PO Q4H PRN udc 07/09/18 ARIPiprazole [Abilify] 5 mg PO 07/14/18 Albuterol/Ipratropium [Duoneb 3 mg/0.5 mg (3 ml) UD] 07/14/18 Pantoprazole Sodium [Protonix] 40 mg PO 07/14/18 diltiaZEM [Cardizem] 30 mg PO 07/14/18 levETIRAcetam [Keppra] 07/14/18 Divalproex [Depakote DR (*BID*)] 250 mg PO BID tcp 07/18/18 Mirtazapine [Remeron] 15 mg PO HS tab 07/18/18 Multimineral/Multivitamin [Therapeutic-M Tab] 1 tab PO 0800 tab 07/18/18 risperiDONE [RisperDAL Oral Soln] 1 mg PO BID ml 07/18/18
--- NOTE | 2019-03-06 11:06 | CP.PCM.PN ---
Subjective - Date & Time of Evaluation Date of Evaluation: 03/06/19 Time of Evaluation: 11:04 - Subjective Subjective: PGY-3 for Carole Gunn Pt sleeping but easily awaken. Not motivated to answer questions. Able to make needs know. No acute complaint. Objective - Vital Signs/Intake and Output Vital Signs (last 24 hours): Temp Pulse Resp BP Pulse Ox 97.8 F 66 14 148/70 96 03/06/19 07:41 03/06/19 07:00 03/06/19 07:00 03/06/19 06:34 03/06/19 07:00 Intake and Output: 03/06/19 03/06/19 06:59 18:59 Intake Total 840 Output Total 1500 Balance -660 - Medications Medications: Current Medications Albuterol/Ipratropium (Duoneb 3 Mg/0.5 Mg (3 Ml) Ud) 3 ml INH RQ4 MAYANK Last Admin: 03/06/19 07:32 Dose: 3 ml Chlordiazepoxide (Librium) 5 mg PO Q8 MAYANK Stop: 03/07/19 14:01 Last Admin: 03/06/19 05:53 Dose: 5 mg Heparin Sodium (Porcine) (Heparin) 5,000 units SC Q8 MAYANK Last Admin: 03/06/19 05:51 Dose: 5,000 units Piperacillin Sod/Tazobactam Sod (Zosyn 3.375 Gm Iv Premix) 3.375 gm in 50 mls @ 100 mls/hr IVPB Q6H MAYANK; Protocol Last Admin: 03/06/19 09:00 Dose: 100 mls/hr Levetiracetam 500 mg/ Dextrose 105 mls @ 420 mls/hr IVPB Q12H MAYANK Last Admin: 03/06/19 03:00 Dose: 420 mls/hr Lorazepam (Ativan) 1 mg IVP Q6H PRN PRN Reason: Anxiety Last Admin: 03/06/19 01:56 Dose: 1 mg - Labs Labs: 03/06/19 05:36 03/06/19 05:36 PT 11.7 SECONDS (9.7-12.2) 03/01/19 10:58 INR 1.1 03/01/19 10:58 APTT 30.0 SECONDS (21-34) 03/01/19 10:58 - Constitutional Appears: No Acute Distress - Head Exam Head Exam: ATRAUMATIC, NORMAL INSPECTION, NORMOCEPHALIC - Eye Exam Eye Exam: EOMI, Normal appearance, PERRL. absent: Scleral icterus Pupil Exam: NORMAL ACCOMODATION - ENT Exam ENT Exam: Mucous Membranes Moist - Neck Exam Additional comments: supple - Respiratory Exam Respiratory Exam: Clear to Ausculation Bilateral. absent: Rales, Rhonchi, Wheezes - Cardiovascular Exam Cardiovascular Exam: REGULAR RHYTHM, +S1, +S2 - GI/Abdominal Exam GI & Abdominal Exam: Soft, Normal Bowel Sounds. absent: Tenderness Additional comments: mid-line scar healed well - Extremities Exam Extremities Exam: absent: Calf Tenderness, Pedal Edema - Neurological Exam Neurological Exam: Alert, Awake - Psychiatric Exam Psychiatric exam: Normal Affect, Normal Mood - Skin Skin Exam: Dry, Warm Assessment and Plan - Assessment and Plan (Free Text) Plan: Mr Clancy, 53M, with PMHx alcohol abuse, seizure disorder, cardiac arrest (2017), PUD s/p partial gastrectomy, HTN, COPD, hiatal hernia, brought in by ALS for altered mental status with unknown onset of time (found by home health aid). UDS and ETOH neg on admission. (1) Hypoosmotic Hypovolemic Hyponatermia 107 on admission - stable at Na 130 Persistent hyponatermia - mild s/p hypertonic saline with desmopressin adjustment, now off IVF AMS resolved Samantha, [facility] strict i.o (2) Hypokalemia Corrected, continue to monitor and supplement prn s/r/d/w Dr Shafer
[2019-03-07] MEDS: Albuterol-Ipratrop 3 mg / 0.5 (3 ml) UD INH SCH ×8 (00:56→23:32)
[2019-03-07 02:49] VITALS: RESP 20
[2019-03-07] MEDS: Piperacill/Tazo 3.375gm in Dex 3.375 GM/50 ML BAG IVPB SCH ×4 (04:09→21:06)
[2019-03-07 06:47] LABS: BASO % 0.1 % (0.0-2.0); HEMOGLOBIN 12.1 g/dL (12.0-18.0); LYMPH # 0.6 K/uL (1.0-4.3); LYMPH % 7.5 % (20.0-40.0); MEAN CELL VOLUME 93.2 fL (80.0-94.0); MEAN CORPUSCULAR HGB CONC 34.3 g/dL (33.0-37.0); MONO # 0.2 K/uL (0.0-0.8); NEUT % 89.4 % (50.0-75.0); PLATELET COUNT 263 K/uL (130-400); RBC 3.76 Mil/uL (4.40-5.90); RED CELL DISTRIBUTION WIDTH 15.1 % (11.5-14.5); WHITE BLOOD COUNT 7.8 K/uL (4.8-10.8)
--- NOTE | 2019-03-07 07:27 | CP.PCM.PN ---
Subjective - Date & Time of Evaluation Date of Evaluation: 03/07/19 Time of Evaluation: 11:04 - Subjective Subjective: Medicine Note for Dr. Sorenson's Service Patient was seen and examined at bedside. Patient will not respond to any questions. Objective - Vital Signs/Intake and Output Vital Signs (last 24 hours): Temp Pulse Resp BP Pulse Ox 97.8 F 94 H 20 133/72 96 03/06/19 23:15 03/07/19 05:13 03/06/19 23:15 03/06/19 23:15 03/06/19 23:15 - Medications Medications: Current Medications Albuterol/Ipratropium (Duoneb 3 Mg/0.5 Mg (3 Ml) Ud) 3 ml INH RQ4 [facility] Last Admin: 03/07/19 04:11 Dose: Not Given Chlordiazepoxide (Librium) 5 mg PO Q8 [facility] Stop: 03/07/19 14:01 Last Admin: 03/07/19 06:23 Dose: 5 mg Heparin Sodium (Porcine) (Heparin) 5,000 units SC Q8 [facility] Last Admin: 03/07/19 06:23 Dose: 5,000 units Piperacillin Sod/Tazobactam Sod (Zosyn 3.375 Gm Iv Premix) 3.375 gm in 50 mls @ 100 mls/hr IVPB Q6H [facility]; Protocol Last Admin: 03/07/19 04:09 Dose: 100 mls/hr Levetiracetam (Keppra) 500 mg PO BID [facility] Last Admin: 03/06/19 17:03 Dose: 500 mg Lorazepam (Ativan) 1 mg IVP Q6H PRN PRN Reason: Anxiety Last Admin: 03/06/19 22:01 Dose: 1 mg Zolpidem Tartrate (Ambien) 5 mg PO HS PRN PRN Reason: Insomnia Last Admin: 03/06/19 20:42 Dose: 5 mg - Labs Labs: 03/07/19 06:40 03/06/19 05:36 PT 11.7 SECONDS (9.7-12.2) 03/01/19 10:58 INR 1.1 03/01/19 10:58 APTT 30.0 SECONDS (21-34) 03/01/19 10:58 - Neurological Exam Neurological Exam: Alert, Awake - Additional Findings Additional findings: Patient refused physical examination. He is lying in bed comfortably. Audible rhonchi. Assessment and Plan - Assessment and Plan (Free Text) Plan: Multilobar Pneumonia - Started Zosyn 3.375gm Q6H 03/01/19, will complete 14 day course until 03/15/19 Seizure Disorder - Continue with Keppra 500mg PO BID Hx Alcohol Use Disorder - Cessation encouraged - Continue with Librium taper, will finish 03/07/19 - MV, thiamine, and folic acid daily Prophylactic Measures - GI PPX: no indicated - DVT PPX: Heparin Q8H Disposition: Patient is medically stable for discharge to [facility] with midline in place to continue Zosyn 3.375gm Q6H to complete 14 day course. Last 4 doses to be given on 03/15/19. DW Mena Grey DO, PGY2
[2019-03-07 07:39] LABS: BLOOD UREA NITROGEN 14 mg/dL (9-20); CALCIUM 9.2 mg/dl (8.6-10.4); GFR NON-AFRICAN AMERICAN > 60
[2019-03-07 08:32] LABS: OSMOLALITY,URINE 428 mosm/kg (300-1000)
[2019-03-07 09:29] LABS: BANDS 3 % (0-2); LYMPHOCYTE 9 % (20-40); MONOCYTE 3 % (0-10); NEUTROPHIL 85 % (50-75); PLATELET ESTIMATE NORMAL (NORMAL); TOTAL CELLS COUNTED 100
[2019-03-07 09:30] LABS: ANISOCYTOSIS SLIGHT; BURR CELLS SLIGHT; POIKILOCYTOSIS SLIGHT; TOXIC GRANULATION PRESENT
[2019-03-07 09:31] LABS: LARGE PLATELETS PRESENT
[2019-03-07 11:23] LABS: BASO # 0.1 K/uL (0.0-0.2); BASO % 0.7 % (0.0-2.0); EOS % 0.2 % (0.0-4.0); HEMOGLOBIN 11.8 g/dL (12.0-18.0); LYMPH # 1.3 K/uL (1.0-4.3); LYMPH % 14.4 % (20.0-40.0); MEAN CELL VOLUME 94.2 fL (80.0-94.0); MEAN CORPUSCULAR HEMOGLOBIN 32.2 pg (27.0-31.0); MEAN CORPUSCULAR HGB CONC 34.2 g/dL (33.0-37.0); MEAN PLATELET VOLUME 6.8 fL (7.2-11.7); MONO # 0.9 K/uL (0.0-0.8); MONO % 10.4 % (0.0-10.0); NEUT # 6.7 K/uL (1.8-7.0); NEUT % 74.3 % (50.0-75.0); RBC 3.66 Mil/uL (4.40-5.90); RED CELL DISTRIBUTION WIDTH 15.1 % (11.5-14.5)
[2019-03-07] MEDS: Acetylcysteine 20% Inhal Soln (4ml) INH SCH ×2 (11:28→17:12)
[2019-03-07 11:50] LABS: ALB/GLOB RATIO 1.2 (1.0-2.1); ALBUMIN 3.7 g/dL (3.5-5.0); ALT/SGPT 25 U/L (21-72); AST/SGOT 44 U/L (17-59); BLOOD UREA NITROGEN 16 mg/dL (9-20); CALCIUM 9.1 mg/dl (8.6-10.4); GFR NON-AFRICAN AMERICAN > 60
--- NOTE | 2019-03-07 12:10 | CP.PCM.PN ---
Subjective - Date & Time of Evaluation Date of Evaluation: 03/07/19 Time of Evaluation: 12:09 - Subjective Subjective: PGY-[address] Shafer, Nephro Pt sleepy because he couldnt sleep at night due to back pain. No other acute complaints Objective - Vital Signs/Intake and Output Vital Signs (last 24 hours): Temp Pulse Resp BP Pulse Ox 97.7 F 83 20 131/71 97 03/07/19 07:20 03/07/19 09:00 03/07/19 07:20 03/07/19 07:20 03/07/19 07:20 - Medications Medications: Current Medications Acetylcysteine (Acetylcysteine 20%) 4 ml INH RQ6 [facility] Stop: 03/07/19 14:01 Last Admin: 03/07/19 11:28 Dose: Not Given Albuterol/Ipratropium (Duoneb 3 Mg/0.5 Mg (3 Ml) Ud) 3 ml INH RQ4 [facility] Last Admin: 03/07/19 11:28 Dose: Not Given Albuterol/Ipratropium (Duoneb 3 Mg/0.5 Mg (3 Ml) Ud) 3 ml INH RQ6 [facility] Stop: 03/07/19 20:01 Chlordiazepoxide (Librium) 5 mg PO Q8 [facility] Stop: 03/07/19 14:01 Last Admin: 03/07/19 06:23 Dose: 5 mg Folic Acid (Folic Acid) 1 mg PO DAILY [facility] Heparin Sodium (Porcine) (Heparin) 5,000 units SC Q8 [facility] Last Admin: 03/07/19 06:23 Dose: 5,000 units Piperacillin Sod/Tazobactam Sod (Zosyn 3.375 Gm Iv Premix) 3.375 gm in 50 mls @ 100 mls/hr IVPB Q6H [facility]; Protocol Last Admin: 03/07/19 10:33 Dose: 100 mls/hr Levetiracetam (Keppra) 500 mg PO BID [facility] Last Admin: 03/07/19 10:33 Dose: 500 mg Lorazepam (Ativan) 1 mg IVP Q6H PRN PRN Reason: Anxiety Last Admin: 03/06/19 22:01 Dose: 1 mg Multivitamins (Hexavitamin) 1 tab PO DAILY [facility] Thiamine HCl (Vitamin B1 Tab) 100 mg PO DAILY [facility] - Labs Labs: 03/07/19 11:13 03/07/19 11:13 PT 11.7 SECONDS (9.7-12.2) 03/01/19 10:58 INR 1.1 03/01/19 10:58 APTT 30.0 SECONDS (21-34) 03/01/19 10:58 - Constitutional Appears: No Acute Distress - Head Exam Head Exam: ATRAUMATIC, NORMAL INSPECTION, NORMOCEPHALIC - Eye Exam Eye Exam: EOMI, Normal appearance, PERRL. absent: Scleral icterus Pupil Exam: NORMAL ACCOMODATION - ENT Exam ENT Exam: Mucous Membranes Moist - Neck Exam Additional comments: supple - Respiratory Exam Respiratory Exam: Clear to Ausculation Bilateral. absent: Rales, Rhonchi, Wheezes - Cardiovascular Exam Cardiovascular Exam: REGULAR RHYTHM, +S1, +S2 - GI/Abdominal Exam GI & Abdominal Exam: Soft. absent: Guarding, Rigid, Tenderness Additional comments: no suprapubic tendenress - Extremities Exam Extremities Exam: absent: Calf Tenderness, Pedal Edema - Back Exam Back Exam: absent: CVA tenderness (L), CVA tenderness (R) - Neurological Exam Neurological Exam: Alert, Awake - Psychiatric Exam Psychiatric exam: Normal Affect, Normal Mood - Skin Skin Exam: Dry, Warm Assessment and Plan - Assessment and Plan (Free Text) Plan: Mr Clancy, 53M, with PMHx alcohol abuse, seizure disorder, cardiac arrest (2017), PUD s/p partial gastrectomy, HTN, COPD, hiatal hernia, brought in by ALS for altered mental status with unknown onset of time (found by home health aid). UDS and ETOH neg on admission. 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 If hyponatermia persists outpatient, pt may need further imaging. s/r/d/w Dr Shafer
[2019-03-08] MEDS: Albuterol-Ipratrop 3 mg / 0.5 (3 ml) UD INH SCH ×4 (03:13→16:03)
[2019-03-08] MEDS: Piperacill/Tazo 3.375gm in Dex 3.375 GM/50 ML BAG IVPB SCH ×3 (04:07→17:00)
[2019-03-08 06:42] LABS: BASO # 0.1 K/uL (0.0-0.2); BASO % 1.1 % (0.0-2.0); EOS # 0.2 K/uL (0.0-0.7); EOS % 3.3 % (0.0-4.0); HEMOGLOBIN 11.1 g/dL (12.0-18.0); LYMPH # 2.6 K/uL (1.0-4.3); LYMPH % 35.2 % (20.0-40.0); MEAN CORPUSCULAR HEMOGLOBIN 32.8 pg (27.0-31.0); MEAN CORPUSCULAR HGB CONC 34.8 g/dL (33.0-37.0); MEAN PLATELET VOLUME 6.5 fL (7.2-11.7); MONO # 0.9 K/uL (0.0-0.8); MONO % 12.6 % (0.0-10.0); NEUT # 3.5 K/uL (1.8-7.0); NEUT % 47.8 % (50.0-75.0); RBC 3.39 Mil/uL (4.40-5.90); RED CELL DISTRIBUTION WIDTH 15.1 % (11.5-14.5); WHITE BLOOD COUNT 7.3 K/uL (4.8-10.8)
--- NOTE | 2019-03-08 07:22 | CP.PCM.PN ---
Subjective - Date & Time of Evaluation Date of Evaluation: 03/08/19 Time of Evaluation: 07:21 - Subjective Subjective: Progress note for Dr. Sorenson Patient was seen and examined at bedside in no acute distress. Patient was oob to chair. Hes complaining of left sided axillary pain. Denies chest pain, abdominal pain, leg pain, dyspnea. ROS limited as patient doesn't want to respond. Per nursing, patient was agitated and combative yesterday with picc kelley e nurse. Midline was not placed due to patients behavior. Objective - Vital Signs/Intake and Output Vital Signs (last 24 hours): Temp Pulse Resp BP Pulse Ox 98.3 F 79 20 142/72 95 03/07/19 23:05 03/08/19 04:15 03/07/19 23:05 03/07/19 23:05 03/07/19 23:05 Intake and Output: 03/08/19 03/08/19 06:59 18:59 Intake Total 650 Balance 650 - Medications Medications: Current Medications Albuterol/Ipratropium (Duoneb 3 Mg/0.5 Mg (3 Ml) Ud) 3 ml INH RQ4 [facility] Last Admin: 03/08/19 03:13 Dose: Not Given Folic Acid (Folic Acid) 1 mg PO DAILY [facility] Heparin Sodium (Porcine) (Heparin) 5,000 units SC Q8 [facility] Last Admin: 03/08/19 05:21 Dose: 5,000 units Piperacillin Sod/Tazobactam Sod (Zosyn 3.375 Gm Iv Premix) 3.375 gm in 50 mls @ 100 mls/hr IVPB Q6H [facility]; Protocol Last Admin: 03/08/19 04:07 Dose: Not Given Ibuprofen (Motrin Tab) 400 mg PO Q8 [facility] Last Admin: 03/08/19 05:21 Dose: 400 mg Levetiracetam (Keppra) 500 mg PO BID [facility] Last Admin: 03/07/19 17:24 Dose: 500 mg Lorazepam (Ativan) 1 mg IVP Q6H PRN PRN Reason: Anxiety Last Admin: 03/06/19 22:01 Dose: 1 mg Multivitamins (Hexavitamin) 1 tab PO DAILY [facility] Thiamine HCl (Vitamin B1 Tab) 100 mg PO DAILY [facility] Zolpidem Tartrate (Ambien) 5 mg PO HS PRN PRN Reason: Insomnia Last Admin: 03/07/19 21:04 Dose: 5 mg - Labs Labs: 03/08/19 06:35 03/07/19 11:13 PT 11.7 SECONDS (9.7-12.2) 03/01/19 10:58 INR 1.1 03/01/19 10:58 APTT 30.0 SECONDS (21-34) 03/01/19 10:58 - Constitutional Appears: No Acute Distress - Head Exam Head Exam: ATRAUMATIC, NORMAL INSPECTION - Eye Exam Eye Exam: EOMI - ENT Exam ENT Exam: Mucous Membranes Dry - Respiratory Exam Respiratory Exam: Decreased Breath Sounds, NORMAL BREATHING PATTERN. absent: Respiratory Distress - Cardiovascular Exam Cardiovascular Exam: REGULAR RHYTHM, +S1, +S2 - GI/Abdominal Exam GI & Abdominal Exam: Soft, Normal Bowel Sounds. absent: Tenderness - Neurological Exam Neurological Exam: Awake - Psychiatric Exam Psychiatric exam: Agitated - Skin Skin Exam: Dry, Warm Assessment and Plan - Assessment and Plan (Free Text) Plan: Multilobar Pneumonia - Started Zosyn 3.375gm Q6H 03/01/19, will complete 14 day course until 03/15/19 Seizure Disorder - Continue with Keppra 500mg PO BID Hx Alcohol Use Disorder - Cessation encouraged - Completed Librium taper on 03/07/19 - MV, thiamine, and folic acid daily Prophylactic Measures - GI PPX: no indicated - DVT PPX: Heparin Q8H Disposition: Patient is medically stable for discharge to [facility] with midline in place to continue Zosyn 3.375gm Q6H to complete 14 day course. Last 4 doses to be given on 03/15/19.
[2019-03-08 07:26] LABS: ALB/GLOB RATIO 1.2 (1.0-2.1); ALBUMIN 3.3 g/dL (3.5-5.0); ALT/SGPT 43 U/L (21-72); AST/SGOT 69 U/L (17-59); BLOOD UREA NITROGEN 15 mg/dL (9-20); CALCIUM 8.8 mg/dl (8.6-10.4); GFR NON-AFRICAN AMERICAN > 60
[2019-03-08] MEDS ORDERED: Multiple Vitamins Tab PO SCH (10:00)
--- NOTE | 2019-03-08 11:23 | CP.PCM.PN ---
Subjective - Date & Time of Evaluation Date of Evaluation: 03/08/19 Time of Evaluation: 11:20 - Subjective Subjective: PGY-[address] Shafer Pt has justed walked with PT, tolerated well. c/o dyspnea rib pain on lower left, worse inspiration/cough, sharp, mild Objective - Vital Signs/Intake and Output Vital Signs (last 24 hours): Temp Pulse Resp BP Pulse Ox 98.1 F 65 20 150/71 96 03/08/19 07:20 03/08/19 07:28 03/08/19 07:20 03/08/19 07:20 03/08/19 07:20 Intake and Output: 03/08/19 03/08/19 06:59 18:59 Intake Total 650 Balance 650 - Medications Medications: Current Medications Albuterol/Ipratropium (Duoneb 3 Mg/0.5 Mg (3 Ml) Ud) 3 ml INH RQ4 [facility] Last Admin: 03/08/19 08:34 Dose: 3 ml Folic Acid (Folic Acid) 1 mg PO DAILY [facility] Last Admin: 03/08/19 09:48 Dose: 1 mg Heparin Sodium (Porcine) (Heparin) 5,000 units SC Q8 [facility] Last Admin: 03/08/19 05:21 Dose: 5,000 units Piperacillin Sod/Tazobactam Sod (Zosyn 3.375 Gm Iv Premix) 3.375 gm in 50 mls @ 100 mls/hr IVPB Q6H [facility]; Protocol Last Admin: 03/08/19 09:52 Dose: 100 mls/hr Ibuprofen (Motrin Tab) 400 mg PO Q8 [facility] Last Admin: 03/08/19 05:21 Dose: 400 mg Levetiracetam (Keppra) 500 mg PO BID [facility] Last Admin: 03/08/19 09:48 Dose: 500 mg Lorazepam (Ativan) 1 mg IM Q6H PRN PRN Reason: Anxiety Last Admin: 03/08/19 09:48 Dose: 1 mg Multivitamins (Hexavitamin) 1 tab PO DAILY [facility] Last Admin: 03/08/19 09:48 Dose: 1 tab Thiamine HCl (Vitamin B1 Tab) 100 mg PO DAILY [facility] Last Admin: 03/08/19 09:48 Dose: 100 mg Zolpidem Tartrate (Ambien) 5 mg PO HS PRN PRN Reason: Insomnia Last Admin: 03/07/19 21:04 Dose: 5 mg - Labs Labs: 03/08/19 06:35 03/08/19 06:35 PT 11.7 SECONDS (9.7-12.2) 03/01/19 10:58 INR 1.1 03/01/19 10:58 APTT 30.0 SECONDS (21-34) 03/01/19 10:58 - Constitutional Appears: No Acute Distress - Head Exam Head Exam: ATRAUMATIC, NORMAL INSPECTION, NORMOCEPHALIC - Eye Exam Eye Exam: EOMI, Normal appearance, PERRL. absent: Scleral icterus Pupil Exam: NORMAL ACCOMODATION - ENT Exam ENT Exam: Mucous Membranes Moist - Neck Exam Additional comments: supple. no jvd - Respiratory Exam Respiratory Exam: Clear to Ausculation Bilateral, Rhonchi (bronchial vesicular sounds b/l lung), NORMAL BREATHING PATTERN - Cardiovascular Exam Cardiovascular Exam: REGULAR RHYTHM, +S1, +S2. absent: Murmur - GI/Abdominal Exam GI & Abdominal Exam: Soft, Normal Bowel Sounds. absent: Tenderness - Neurological Exam Neurological Exam: Alert, Awake - Psychiatric Exam Psychiatric exam: Normal Affect, Normal Mood - Skin Skin Exam: Dry, Warm Assessment and Plan - Assessment and Plan (Free Text) Plan: Mr Clancy, 53M, with PMHx alcohol abuse, seizure disorder, cardiac arrest (2017), PUD s/p partial gastrectomy, HTN, COPD, hiatal hernia, brought in by ALS for altered mental status with unknown onset of time (found by home health aid). UDS and ETOH neg on admission. Pending MIKEY placement (1) Hypoosmotic Hypovolemic Hyponatermia 107 on admission - resolved s/p hypertonic saline with desmopressin adjustment, now off IVF AMS resolved Samantha 67, Uosm 428 strict i.o (2) Hypokalemia - resolved Corrected, continue to monitor and supplement prn (3) Multilobar pneumonia on Zosyn (d7/14) Managed per primary Midline not placed; pt was not able to tolerate the procedure From Samantha and Uosm, the result may be suggestive of SIADH. If hyponatermia persists outpatient, pt may need further imaging. s/r/d/w Dr Shafer
[2019-03-08 16:13] VITALS: BP 145/76; PULSE 83; TEMP 98
[2019-03-09 12:47] VITALS: O2SAT 100
== END 2019-03-08 19:07 | DRG 882 ==
LOC: C.ER 08:33 → C.9I 12:40 → C.6T 03-06 14:59
PROVIDERS: ADMIT Internal Medicine Pulmonary Disease; ATTEND Internal Medicine Pulmonary Disease
PROC: 5A1945Z Respiratory Ventilation, 24-96 Consecutive Hours (ICD-10-PCS; principal; 2019-03-01)
PROC: 0BH17EZ Insertion of Endotracheal Airway into Trachea, Via Natural or Artificial Opening (ICD-10-PCS; 2019-03-01)
PROC: 02HV33Z Insertion of Infusion Device into Superior Vena Cava, Percutaneous Approach (ICD-10-PCS; 2019-03-01)
PROC: 3E0G76Z Introduction of Nutritional Substance into Upper GI, Via Natural or Artificial Opening (ICD-10-PCS; 2019-03-01)
DX: J18.1 Lobar pneumonia, unspecified organism (principal); J96.90 Respiratory failure, unspecified, unspecified whether with hypoxia or hypercapnia; E87.1 Hypo-osmolality and hyponatremia; J44.0 Chronic obstructive pulmonary disease with (acute) lower respiratory infection; F10.239 Alcohol dependence with withdrawal, unspecified; J98.11 Atelectasis; E86.9 Volume depletion, unspecified; E87.2 Acidosis; E87.6 Hypokalemia; I10 Essential (primary) hypertension; G40.909 Epilepsy, unspecified, not intractable, without status epilepticus; K44.9 Diaphragmatic hernia without obstruction or gangrene; M41.9 Scoliosis, unspecified; H91.90 Unspecified hearing loss, unspecified ear; F17.210 Nicotine dependence, cigarettes, uncomplicated; Z86.74 Personal history of sudden cardiac arrest; Z87.11 Personal history of peptic ulcer disease; Z90.3 Acquired absence of stomach [part of]; Z87.81 Personal history of (healed) traumatic fracture; Z91.81 History of falling

== ENCOUNTER 2019-03-20 11:45 | Emergency (ER) | payer OTHER ==
[2019-03-20 11:46] VITALS: BMI 25.8
[2019-03-20 11:48] VITALS: BP 157/77; PULSE 88; RESP 20; TEMP 98.3; O2SAT 97
== END 2019-03-20 12:14 | disposition left against medical advice (07) ==
LOC: C.ER 11:45
DX: Z02.89 Encounter for other administrative examinations (principal); R51 Headache